=== PATIENT | female | born 1955 | race Caucasian/White ===

== ENCOUNTER → 2018-01-27 10:58 | Outpatient (CLI) | payer OTHER, SELFPAY ==
--- NOTE | 2018-01-27 11:05 | RAD_ITS ---
STUDY: X-RAY CHEST REASON FOR EXAM: Female, 62 years old. Lymphadenopathy TECHNIQUE: PA and lateral views of the chest. COMPARISON: None. FINDINGS: The lungs are adequately inflated and clear. Mildly elevated left hemidiaphragm with blunting of the left costophrenic angle. There is borderline cardiomegaly. Normal mediastinum and alex. Normal visualized pulmonary arteries. Normal visualized aortic arch and descending thoracic aorta. Normal visualized thoracic spine. Normal visualized ribs, clavicles, and shoulders. There is no demonstrated abnormality of the visualized soft tissue structures of the upper abdomen. RAD/Chest PA and Lateral IMPRESSION: Elevated left hemidiaphragm with blunting of the left costophrenic angle. No evidence of acute airspace disease. No evidence of bulky lymphadenopathy. Electronically Signed: Misbah Cordova DO at 10:05 EDT Tel , Service support ,
[2018-01-27 11:17] LABS: Mucous, Urine 0 SEEN /hpf (<or=2+); Red Blood Cells-Urine 0 SEEN /hpf (0-5)
[2018-01-27 12:12] LABS: Color, Urine Yellow (Yellow); Glucose, Dipstick Normal (Normal); Ketone-Dipstick Negative (Negative); Leukocyte Esterase-Dipstick 25 /ul (Negative); Nitrite-Dipstick Negative (Negative); Occult Blood-Urine Negative /ul (Negative); Protein-Dipstick 30 mg/dl (Negative); Specific Gravity, Urine 1.015 (1.002-1.030); Urine Bilirubin Dipstick Negative (Negative); Urine Clarity Sl. Cloudy (Clear); Urine Urobilinogen Normal (Normal)
[2018-01-27 12:23] LABS: Hyaline Cast 0-5 SEEN /lpf (0-5); Squamous Epithelial Cells - UA 0-5 SEEN /hpf (5-10); White Blood Cells 0-5 SEEN /hpf (0-5)
[2018-01-27 12:24] LABS: Absolute Lymphocyte Count 1.92 X10^3/ul (0.83-4.51); Absolute Neutrophil Count 5.1 X10^3/uL (2.0-7.7); Bacteria 1+ /hpf (None Seen); Basophil# 0.04 X10^3/uL; Basophil% 0.5 % (0-1); Eosinophil# 0.05 X10^3/uL; Eosinophils% 0.6 % (0-5); Hematocrit 43.6 % (37-47); Hemoglobin 14.6 g/dl (12.0-15.0); Lymphocyte # 1.92 X10^3/ul (4.0); Lymphocyte % 22.9 % (19-41); Mean Corp Hgb Conc 33.5 g/gl (32-36); Mean Corpuscular Hgb 30.2 pg (27.0-32.0); Mean Corpuscular Volume 90.1 fL (81-99); Mean Platelet Vol. 13.5 fl (6.2-12.0); Monocyte# 1.22 X10^3/uL; Monocyte% 14.5 % (0-10); Neutrophil # 5.14 X10^3/uL (2.7-7.7); Neutrophil % 61.3 % (47-70); Platelet Count 180 K/mm3 (150-450); RBC Distribution Width CV 15.9 % (11.6-14.6); RBC Distribution Width SD 51.8 fl (35.1-43.9); Red Blood Count 4.84 M/mm3 (4.2-5.4); White Blood Count 8.4 K/mm3 (4.4-11.0)
[2018-01-27 12:25] LABS: POSITIVE COUNT NO; POSITIVE DIFFERENTIAL NO; POSITIVE MORPHOLOGY NO
[2018-01-27 12:46] LABS: AST(SGOT) 41 U/L (15-37); Alanine Aminotransfer ALT/SGPT 33 U/L (13-56); Albumin, Serum 4.1 g/dL (3.2-5.0); Alkaline Phosphatase 93 U/L (45-117); Anion Gap 10 (5-15); BUN 13 mg/dL (7-18); BUN/Creat Ratio 16.8 RATIO (10-20); Chloride 103 mmol/L (98-107); Creatinine, Serum 0.77 mg/dL (0.55-1.02); EST Glomerular Filtration Rate 80 mL/min (>60); Est Glom Filt Rate - Afr Amer 96 mL/min (>60); Glucose 83 mg/dL (74-106); Potassium 4.4 mmol/L (3.5-5.1); Protein, Total 8.1 g/dL (6.4-8.2); Sodium Level 136 mmol/L (136-145)
== END ==
PROVIDERS: Family Provider Family Medicine; PCP Family Medicine; Referring Provider Family Medicine; Visit Provider Family Medicine
DX: R59.1 Generalized enlarged lymph nodes (principal); Z72.0 Tobacco use
CPT/HCPCS: 36415; 71046; 80053; 81001; 85025

== ENCOUNTER → 2018-01-31 07:35 | Outpatient (CLI) | payer OTHER, SELFPAY ==
--- NOTE | 2018-01-31 07:40 | US_ITS ---
STUDY: SUPERFICIAL ULTRASOUND - LYMPHADENOPATHY. Bilateral groin. REASON FOR EXAM: Female, 62 years old. Lymphadenopathy. TECHNIQUE: A superficial ultrasound was performed with real-time and static deshpande-scale imaging. # of Images: 66 COMPARISON: None. FINDINGS: Right groin: Multiple enlarged lymph nodes are seen, largest 5 lymph nodes measure: 6.0 x 2.8 x 2.2 cm, 4.1 x 2.4 x 2.1 cm, 3.0 x 2.2 x 1.4 cm, 2.7 x 2.3 x 2.1 cm and 2.4 x 2.1 x 1.5 cm in size. Left groin: Multiple enlarged lymph nodes are seen, largest 5 lymph nodes measure: 5.7 x 2.5 x 2.2 cm, 4.4 x 2.9 x 2.0 cm, 3.1 x 3.0 x 2.5 cm and 1.9 x 1.8 x 1.4 cm in size. US/Abdomen Limited IMPRESSION: Bilateral inguinal lymphadenopathy. Electronically Signed: Henry Hwang MD at 10:14 EDT Tel , Service support ,
--- NOTE | 2018-01-31 07:40 | US_ITS ---
STUDY: SUPERFICIAL ULTRASOUND - NECK REGION REASON FOR EXAM: Female, 62 years old. Bulky lymphadenopathy TECHNIQUE: A superficial ultrasound was performed with real-time and static deshpande-scale imaging. # of Images: 88 COMPARISON: None. FINDINGS: Imaging of the bilateral neck demonstrates numerous large and abnormal-appearing lymph nodes. Largest lymph node on the right measuring 2.0 x 2.1 x 1.4 cm with thick hypoechoic cortex and thin central hilum. On the left, largest lymph node measuring 2.6 x 1.7 x 1.2 cm. US/Head/Neck Soft Tissue IMPRESSION: Markedly abnormal and bulky neck lymphadenopathy suggestive of lymphoma or metastatic disease. Tissue sampling is recommended Electronically Signed: Misbah Cordova DO at 13:18 EDT Tel , Service support ,
== END ==
PROVIDERS: Family Provider Family Medicine; PCP Family Medicine; Referring Provider Family Medicine; Visit Provider Family Medicine
DX: R59.1 Generalized enlarged lymph nodes (principal)
CPT/HCPCS: 76536; 76705

== ENCOUNTER → 2018-02-13 08:30 | Outpatient (CLI) | payer OTHER, SELFPAY ==
--- NOTE | 2018-02-13 | MISC_PTH ---
PATIENT: GULSHAN HANSON LOC: [facility] U#:[id number] AGE/SX: 69/F ROOM: RE02/13/[address]: Dr. Mukesh Martin MD : 1955 BED: DIS: SPEC #: [id number] RECD: 02/13/18 10:55 STATUS: SUMEET ENRIQUE #: [id number] OFELIA: 02/13/18 00:[address]: Mukesh Martin DEPT: SURGICAL PATHOLOGY RECD BY: Rodney Veliz ENTERED: 02/13/18 10:57 SP TYPE: MISC XENIA DR: Dr. Michael Tanner MD Tissues: Inguinal region, NOS Procedures: Surgery Specimen Level IV HEADER OPERATION: Left groin mammotome biopsy PRE-OP DIAGNOSIS: Left groin enlarged lymph node TISSUE SUBMITTED: Left groin tissue MICROSCOPIC DIAGNOSIS Left groin lymph node, core biopsy: Consistent with follicular center lymphoma, grade 3/3. AM:reno 02/14/18 COMMENT Immunohistochemistry ([id number]) supports the above diagnosis. The lymphoma is positive for CD10, CD20, CD45, CD79a, Bcl2 and Bcl6. Clinical correlation is suggested. Case has been reviewed in consultation with Dr. Caceres who concurs with the above diagnosis. IDC:SJ MICROSCOPIC DESCRIPTION Slides are reviewed. GROSS DESCRIPTION Received in fixative is one container labeled with the patient's name and designated left groin. The specimen consists of multiple irregular fragments of yellow-benites soft tissue that in aggregate measure 2.2 x 2 x 0.2 cm. The specimen is totally submitted in one cassette. / AM:reno 02/13/18 TC:0 CPT: 18560
--- NOTE | 2018-02-13 | IMM_PTH ---
PATIENT: GULSHAN HANSON LOC: [facility] U#:[id number] AGE/SX: 69/F ROOM: RE02/13/[address]: Dr. Mukesh Martin MD : 1955 BED: DIS: SPEC #: [id number] RECD: 02/14/18 11:07 STATUS: SUMEET REQ #: [id number] OFELIA: 02/13/18 00:[address]: Mukesh Martin DEPT: IMMUNOHISTOCHEMISTRY RECD BY: Loree Salgado ENTERED: 02/14/18 11:10 SP TYPE: IMMUNO OTHR DR: Dr. Michael Tanner MD Tissues: Inguinal region, NOS Procedures: BCL-2 (add) BCL-6 (add) CD10 (add) CD138 (add) CD15 (add) CD20 (add) CD23 (add) CD3 (add) CD30 (add) CD43 (add) CD5 (add) CD79A (add) CYCLIN (add) KAPPA (add) KI-67 (add) LAMBDA (add) P53 (add) Vimentin (add) MUM1 (add) Pankeratin (add) P40 (add) S-100 (add) CD45 (initial) PHYSICIAN & INSTITUTION [place] [id number] SPECIMEN INFORMATION: Tissue Source: Left groin tissue Clinical Info: Left groin enlarged lymph node Specimen Number: [id number] CPT code: 92690, 83301 x22 METHODOLOGY: Deparaffinized sections of prefer/formalin-fixed tissue or PAP/DQ stained slides are incubated with monoclonal/polyclonal antibodies/oligonucleotide probes. Localization is made via biotin free immunoperoxidase method. Appropriate controls are performed and reacted as expected. Results on target cell population are indicated in the following table: RESULTS: ANTIBODY / CLONE RESULT CD45 (RP2/18) positive AE1-3 (AE1/AE3/PCK26) negative S-100 (4C4.9) negative Vimentin (V9) positive P40 (BC28) negative P53 (DO-7) positive, rare Ki-67 (30-9) positive, low to moderate CD3 (PS1) negative CD5 (SP10) negative CD10 (56C6) positive CD15 (MMA) negative CD20 (L26) positive CD23 (1B12) negative CD30 (Constantino-H2) negative CD43 (L60) negative CD79a (11E3) positive CD138 (B-A38) negative BCL-2 (bcl-2/100/D5) positive BCL-6 (HD894U/A8) positive Cyclin D1/BCL-1 (SP4) negative [place] (polyclonal) negative Lambda (polyclonal) negative MUM1 (MRQ-43) equivocal These tests were developed and their performance characteristics determined by [facility]. They may not have been cleared or approved by the U.S. Food and Drug Administration. The FDA has determined that such clearance or approval is not necessary. INTERPRETATION: Left groin tissue, core biopsy: Consistent with follicular center lymphoma, grade III/III. AM:reno 02/19/18 Case has been reviewed in consultation with Dr. Caceres who concurs with the above diagnosis. IDC:SJ
== END ==
PROVIDERS: Family Provider Family Medicine; PCP Family Medicine; Referring Provider Surgery; Visit Provider Surgery
DX: R59.0 Localized enlarged lymph nodes (principal)
CPT/HCPCS: 88305; 88341; 88342

== ENCOUNTER → 2018-02-14 12:47 | Outpatient (CLI) | payer OTHER, SELFPAY ==
--- NOTE | 2018-02-14 12:49 | CT_ITS ---
STUDY: CT CHEST WITH CONTRAST REASON FOR EXAM: Female, 62 years old. Lymphadenopathy. RADIATION DOSAGE (If Supplied By Facility): CTDIvol = ( 12.95 ) mGy, DLP = ( 1143.26 ) mGycm TECHNIQUE: Transaxial imaging was performed following intravenous administration of 100 ml of Isovue 300 contrast material. Multiplanar coronal and sagittal images were reformatted. Individualized dose optimization techniques were used for this CT. COMPARISON: None. FINDINGS: There is evidence of a bilateral supraclavicular lymphadenopathy worse on the left side. The largest measures 4.3 cm x 2.9 cm. This compresses the left lobe of the thyroid. There is also evidence of bilateral axillary lymphadenopathy worse on the left side. There is skin thickening of the left breast. There is a 1.7 cm x 1.2 cm nodule in the deep posterior lateral aspect of the left breast. Large left pleural effusion with mild loss in the right hemithorax. Small right pleural effusion. Normal heart and pericardium. Multiple mediastinal lymph nodes involving the anterior and middle mediastinum. There is evidence of a subcarinal lymphadenopathy as well as bilateral hilar lymphadenopathy. Normal enhanced pulmonary arteries. Normal aorta arch and descending thoracic aorta. There are multi-level degenerative changes of the thoracic spine. Increased kyphosis. Retroperitoneal lymphadenopathy. Periportal adenopathy. CT/Chest WITH Contrast IMPRESSION: Supraclavicular and bilateral axillary lymph nodes worse on the left side. Diffuse mediastinal and hilar lymphadenopathy with the bilateral pleural effusions left greater than right with atelectasis at the left lung base. Electronically Signed: Denny Juarez MD at 14:19 EDT Tel [phone], Service support ,
--- NOTE | 2018-02-14 12:49 | CT_ITS ---
STUDY: CT ABDOMEN AND PELVIS WITH CONTRAST REASON FOR EXAM: Female, 62 years old. Lymphadenopathy. RADIATION DOSAGE (If Supplied By Facility): CTDIvol = ( 12.95 ) mGy, DLP = ( 1143.26 ) mGycm TECHNIQUE: Transaxial images were obtained from the dome of the diaphragm to the symphysis pubis with oral contrast. 100 ml of Isovue 300 contrast was administered. Sagittal and coronal images were reconstructed. Individualized dose optimization techniques were used for this CT. COMPARISON: None. FINDINGS: There is a 1.7 cm x 1.2 cm enhancing nodular density in the deep inferior lateral aspect of the left breast. There is evidence of diffuse skin thickening of the visualized portion of the left breast. Bilateral pleural effusions moderate on the left small on the right with underlying infiltration and/or atelectasis more prominent on the left side. Atelectasis along the anterior medial aspect of the lingular segment of the left upper lobe. The visualized portions of the heart are within normal limits. Normal liver. Normal gallbladder and extrahepatic biliary system. Mild splenomegaly. There is a 1 cm x 2.4 cm linear hypodensity along the posterior lateral aspect of the midportion of the spleen. This may represent an old laceration. Clinical correlation is recommended. Normal pancreas. Normal bilateral adrenal glands. Normal right kidney. Normal left kidney. Normal visualized stomach. Normal small intestine. Normal colon. The appendix is visualized and appears normal. There is diffuse atherosclerotic calcification of the abdominal aorta, without a demonstrated aneurysm. Normal inferior vena cava. There is retroperitoneal lymphadenopathy with enlarged nodes greater than 10-15mm in the short axis. Multiple rounded soft tissue densities are seen in the pelvis sidewalls in keeping with enlarged adenopathy as well as iliac chain adenopathy. There is also evidence of enlarged bilateral inguinal lymph nodes worse on the left side. Is also evidence of lymphadenopathy within the root of the mesentery. Normal urinary bladder. Normal abdominal wall. Mild dextroscoliosis. CT/Abdomen/Pelvis WITH Contrast IMPRESSION: Diffuse retroperitoneal lymphadenopathy as well as pelvic lymphadenopathy. Lymph nodes are seen in both inguinal regions more prominent on the left side. Bilateral pleural effusions left greater than right with underlying atelectasis and/or infiltration. Left breast skin thickening with the 1.7 cm x 1.2 cm nodular density in the deep inferior lateral aspect of the left breast. Electronically Signed: Denny Juarez MD at 14:15 EDT Tel [phone], Service support ,
== END ==
PROVIDERS: Family Provider Family Medicine; PCP Family Medicine; Referring Provider Surgery; Visit Provider Surgery
DX: R59.1 Generalized enlarged lymph nodes (principal)
CPT/HCPCS: 71260; 74177; Q9967

== ENCOUNTER → 2018-02-18 09:09 | Outpatient (CLI) | payer OTHER, SELFPAY ==
[2018-02-18 10:56] LABS: Vitamin D,25 Hydroxy 27.5 ng/mL (29.95-100.01)
[2018-02-18 11:02] LABS: ALB/GLOB Ratio 1.1 RATIO (0.9-2.4); AST(SGOT) 35 U/L (15-37); Alanine Aminotransfer ALT/SGPT 26 U/L (13-56); Albumin, Serum 3.7 g/dL (3.2-5.0); Alkaline Phosphatase 82 U/L (45-117); Anion Gap 10 (5-15); BUN 11 mg/dL (7-18); BUN/Creat Ratio 16.6 RATIO (10-20); Calcium,Total 10.5 mg/dL (8.5-10.1); Chloride 103 mmol/L (98-107); Creatinine, Serum 0.66 mg/dL (0.55-1.02); EST Glomerular Filtration Rate 95 mL/min (>60); Est Glom Filt Rate - Afr Amer 115 mL/min (>60); Globulin 3.5 g/dL (2.2-4.2); Glucose 78 mg/dL (74-106); Phosphorus 4.1 mg/dL (2.5-4.9); Potassium 4.1 mmol/L (3.5-5.1); Protein, Total 7.2 g/dL (6.4-8.2); Sodium Level 137 mmol/L (136-145); Thyroid Stim Hormone (TSH) 2.99 uIU/mL (0.358-3.74)
[2018-02-18 11:03] LABS: PTHIN 44.4 pg/mL (18.4-80.1)
[2018-02-20 12:09] LABS: HEPATITIS B SURFACE AG Negative (Negative); Hep B Surface Antibodies Non Reactive (.); Hep C Antibodies <0.1 s/co ratio (0.0-0.9)
== END ==
PROVIDERS: Family Provider Family Medicine; PCP Family Medicine; Visit Provider Family Medicine
DX: E83.52 Hypercalcemia (principal); R94.5 Abnormal results of liver function studies
CPT/HCPCS: 36415; 80053; 82306; 82330; 83970; 84100; 84443; 86706; 86803; 87340

== ENCOUNTER → 2018-03-03 13:48 | Outpatient (CLI) | payer OTHER, SELFPAY ==
[2018-02-26 14:19] VITALS: BMI 33.0
--- NOTE | 2018-03-03 13:50 | BI_ITS ---
MAMMOGRAPHY - BILATERAL DIAGNOSTIC REASON FOR EXAM: Female, 62 years old. Left lateral breast swelling and thickening. Mass seen on a recent CT scan of the thorax. PERTINENT HISTORY: Mother with breast cancer. TECHNIQUE: Digital bilateral breast gal (3D mammographic acquisition) in the CC and MLO projections. 2-D mediolateral oblique (MLO) and craniocaudad (CC) views of both breasts were obtained. CAD: Full Field Digital Mammography with Computer Added Detection was performed. COMPARISON: Comparison is made with prior either examination is December 21, 2013. FINDINGS: Breast Composition: The breasts are heterogeneously dense, which may obscure small masses. There is diffuse increased markings in the left breast with diffuse skin thickening. There now is evidence of at least 3 large lymph nodes in the left axilla. Smaller lymph nodes are seen in the right axillary region. 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 No other significant abnormalities are identified. BI/DIAG MAMM W/CAD, BILAT IMPRESSION: Diffuse skin thickening of the left breast with increased markings within the left breast suggestive of a inflammatory breast carcinoma. Enlarged bilateral axillary lymph nodes worse on the left side. A biopsy recommended. ASSESSMENT CATEGORY: BIRADS Category 5: Highly Suggestive of Malignancy - Appropriate Action Should Be Taken. A letter regarding these results will be sent to the patient by the facility within 30 days. Approximately 10% of breast cancers are not detected by mammography. A normal mammogram should not delay biopsy of a clinically suspicious abnormality. Electronically Signed: Denny Juarez MD at 10:44 EST Tel [phone], Service support ,
== END ==
PROVIDERS: Family Provider Family Medicine; PCP Family Medicine; Referring Provider Internal Medicine Hematology & Oncology; Visit Provider Internal Medicine Hematology & Oncology
DX: R92.8 Other abnormal and inconclusive findings on diagnostic imaging of breast (principal); R93.89 Abnormal findings on diagnostic imaging of other specified body structures; C82.20 Follicular lymphoma grade III, unspecified, unspecified site
CPT/HCPCS: 77062; 77066; G0279

== ENCOUNTER → 2018-03-04 15:20 | Outpatient (CLI) | payer OTHER, SELFPAY ==
[2018-02-26 14:19] VITALS: BMI 33.0
--- NOTE | 2018-03-04 15:23 | VDLE_ITS ---
Reason For Study: swelling RIGHT LEFT GSV is normal. GSV is normal. CFV is compressible, spontaneous, phasic, CFV is compressible, spontaneous, phasic, competent and demonstrates normal competent, and demonstrates normal augmentation. augmentation. FV is compressible, spontaneous, phasic, FV is compressible, spontaneous, phasic, competent and demonstrates normal competent and demonstrates normal augmentation. augmentation. POP V is compressible, spontaneous, phasic, POP V is compressible, spontaneous, phasic, competent and demonstrates normal competent and demonstrates normal augmentation. augmentation. T/P Trunk is compressible. T/P Trunk is compressible. PTV is compressible. PTV is compressible. RT PerV is compressible. LT PerV is compressible. Multiple heterogeneous areas in the groin Multiple heterogeneous areas in the groin with arterial flow noted. with arterial flow noted. Procedure Exam performed in department. The exam was diagnostic. A preliminary report was called and/or faxed to Dr. Tanner. <> Interpretation Summary Deep veins of the lower extremities are bilaterally patent and compressible segmentally. There is no evidence of deep vein thrombosis on either side. Valvular competence appears intact within the proximal deep venous systems bilaterally. The greater saphenous veins appear bilaterally patent and compressible segmentally. Multiple heterogeneous areas/structures with arterial flow are noted in groin bilaterally. These may represent lymph nodes/lymphadenopathy. Clinical correlation is advised. Ordering Physician: Michael Tanner Performed By: Venancio Seymour RVT
== END ==
PROVIDERS: Family Provider Family Medicine; PCP Family Medicine; Referring Provider Family Medicine; Visit Provider Family Medicine
DX: M79.89 Other specified soft tissue disorders (principal)
CPT/HCPCS: 93970

== ENCOUNTER → 2018-03-07 13:48 | Outpatient (CLI) | payer OTHER, SELFPAY ==
[2018-02-26 14:19] VITALS: BMI 33.0
--- NOTE | 2018-03-07 13:50 | ECHODONC_ITS ---
Reason For Study: PRE-CHEMO Procedure This was a 2D Doppler, Color Flow transthoracic echocardiogram. Myocardial strain analysis was performed in this exam to aid in the assessment of cardiac function. Exam performed in department. Left Ventricle Normal LV size. Left ventricular systolic function is normal. The estimated ejection fraction is 60 %. No evidence for diastolic dysfunction. No regional wall motion abnormalities noted. Right Ventricle Normal RV size. Normal systolic function. Atria Normal left atrium. Normal right atrium. Mitral Valve Normal mitral valve. Mild (1+) eccentric mitral valve insufficiency. Tricuspid Valve Normal tricuspid valve. Mild (1+) tricuspid valve insufficiency. Pulmonary artery systolic pressure is 33 mmHg. Aortic Valve Normal aortic valve. Trisinus/trileaflet aortic valve. Pulmonic Valve Normal pulmonic valve. Great Vessels Normal aortic root. The pulmonary artery is normal size. Normal inferior vena cava. Pericardium/Pleural Small pericardial effusion. Large left pleural effusion. MMode/2D Measurements & Calculations LVIDd: 4.4 cm IVSd: 0.89 cm Ao root diam: 3.4 cm LVIDs: 3.0 cm LVPWd: 0.91 cm RVDd: 3.0 cm FS: 31.4 % LAV(MOD-bp): 55.9 ml LA A4 area: 17.2 cm2 LA dimension(2D): 3.6 cm LAV(MOD-bp) Indexed: 30.2 ml/m2 LAV(MOD-sp2): 58.5 ml LAV(MOD-sp4): 47.8 ml RA A4 area: 12.7 cm2 Time Measurements MV dec time: 0.26 sec Doppler Measurements & Calculations MV E max delfin: 79.7 cm/sec Lat Peak E' Delfin: 10.1 cm/sec Med Peak E' Delfin: 7.4 cm/sec MV A max delfin: 72.9 cm/sec E/E' lat: 7.9 E/E' med: 10.7 MV E/A: 1.1 Ao V2 max: 122.3 cm/sec LV V1 max: 121.0 cm/sec TR max delfin: 267.9 cm/sec Ao max P.0 mmHg LV V1 max P.9 mmHg TR max P.1 mmHg Interpretation Summary Normal LV size. Left ventricular systolic function is normal. The estimated ejection fraction is 60 %. No evidence for diastolic dysfunction. Mild (1+) tricuspid valve insufficiency. Pulmonary artery systolic pressure is 33 mmHg. The global longitudinal strain is normal. The global longitudinal strain = -23.3 % (normal). Ordering Physician: Sam Aiken Referring Physician: CATINA TEJADA Performed By: Pauline Santamaria, [place], RVT
== END ==
PROVIDERS: Family Provider Family Medicine; PCP Family Medicine; Referring Provider Internal Medicine Hematology & Oncology; Visit Provider Internal Medicine Hematology & Oncology
DX: Z01.818 Encounter for other preprocedural examination (principal); C82.20 Follicular lymphoma grade III, unspecified, unspecified site
CPT/HCPCS: 0399T; 93306

== ENCOUNTER 2018-03-14 08:49 | Day surgery (SDC) | payer OTHER, SELFPAY ==
[2018-02-26 14:19] VITALS: BMI 33.0
[2018-03-13 14:55] VITALS: BMI 32.7
[2018-03-14] VITALS (8 sets, daily range): BP systolic 118–135; BP diastolic 53–93; PULSE 65–80; RESP 18–20; TEMP 36.6–36.8; O2SAT 89–96; BMI 31.7
--- NOTE | 2018-03-14 09:14 | EKG12_ITS ---
Test Reason : PREOP Blood Pressure : / mmHG Vent. Rate : 061 BPM Atrial Rate : 061 BPM P-R Int : 158 ms QRS Dur : 086 ms QT Int : 378 ms P-R-T Axes : 037 019 030 degrees QTc Int : 380 ms Normal sinus rhythm Low voltage QRS Borderline ECG No previous ECGs available Confirmed by KAMALA MATA, HOLDEN ([id number]), manuscript editor KAREN MARCELINO ([id number]) on 03/14/2018 2:13:24 PM Referred By: Mukesh Martin Confirmed By:HOLDEN WRAY MD
[2018-03-14] MEDS: Cefazolin 2 GM in 0.9% Normal Saline 100 ML IV (11:08)
--- NOTE | 2018-03-14 11:13 | DCINST_ITS ---
Discharge Diet: Light diet - advance as tolerated - if you have questions about your diet instructions, please talk to you doctor. Discharge Activity: May Not Drive - for 1 week or while taking narcotic pain medicine. May shower in (days): 1 Lifting Restrictions: 10 pounds Call your doctor if your incision/area has: Continuous Slow Oozing, Sudden Increased Bleeding, Increased Pain/ Swelling, Increased Redness, Foul Smelling Discharge Call your doctor if you observe: Fever of 101 or Higher Suture Line Care: Avoid Pulling/Pushing, Avoid Pinching/Bending Additional Dressing/Incision Instructions:: Change or remove dressing in 4 days. Leave steri-strips in place for 1 week. Allergies/Adverse Reactions: Allergies No Known Allergies Allergy (Verified 03/14/18 09:32) Medications to take at Discharge aspirin 81 mg tablet,delayed release 81 mg PO DAILY 02/10/18 omega-3 fatty acids 1,000 mg capsule 1,000 mg PO DAILY 02/10/18 Multivitamin [Multiple Vitamins] 1 tab PO DAILY 02/25/18 Hydrocodone Bitart/Apap 5-325 [Kittery 5MG-325MG] 1 tablet PO Q6H PRN PRN 2 Days #5 tablet 03/14/18 The following prescriptions were given: Hydrocodone Bitart/Apap 5-325 [Kittery 5MG-325MG] 1 tablet PO Q6H PRN PRN 2 Days #5 tablet PRN Reason: Pain Primary Care Physician: Michael Tanner MD [Primary Care Provider] - Test Results: Test results from this visit will be discussed in further detail at your follow- up appointment, if applicable. Please Follow Up With: Mukesh Martin MD - [phone] When: Office appointment can be scheduled if needed
[2018-03-14] MEDS: Bupivacaine Mpf 0.5% 30 ML VIAL (11:40)
--- NOTE | 2018-03-14 11:51 | PCM.OPRPT ---
Problem List (1) Follicular lymphoma grade III Status: Acute Qualifiers: Lymphoma site: axillary Qualified Code(s): C82.24 - Follicular lymphoma grade III, unspecified, lymph nodes of axilla and upper limb Report of Operation Date of Procedure: 03/14/18 Pre-Operative Diagnosis: Follicular lymphoma Post-Operative Diagnosis: Same Surgery/Procedure Performed:: Right internal jugular 6 Mongolian power port placement Description of Surgical Findings:: Timeout and informed consent was obtained. 62-year-old female was taken out from placement table she underwent monitored anesthesia care. Ancef 2 g given intravenously preoperatively. The right neck and chest were sterilely prepped and draped. Under ultrasound guidance 1% lidocaine mixed 50-50 with 0.5% Marcaine was used as a local anesthetic. Total of 15 cc was used. Local was micropuncture needle was inserted under ultrasound guidance the right internal jugular vein. So much wire advancement. Fluoroscopy demonstrated good positioning. Local was then instilled down upon the chest wall. A transverse incision was made second intercostal space midclavicular line and using electrocautery sub-changes pocket was created. The tubing was tunneled from the neck to the chest site. Micropuncture sheath was placed over the micropuncture wire and an 035 J-wire was inserted. Fluoroscopy demonstrated good positioning. The sheath dilator was placed over the wire dilator wire removed the catheter advanced through the sheath the sheath was split the catheter was placed at the SVC atrial junction it was amputated to length connected the port secured with port attachment device. The port was placed within the pocket secured there with interrupted 2-0 silk. The port site was closed with interrupted 3-0 Vicryl subdermal sutures. The neck was closed with interrupted 5-0 Vicryl subdermal stitches. The port was accessed. It aspirated easily it was flushed with saline and heparinized saline. Steri-Strips Telfa and OpSite dressings applied. Sponge and instrument and needle counts were reported the surgeon to be correct. Blood loss was minimal. Specimens none. Drains none. Blood loss minimal. She was taken to the recovery area in satisfactory condition. Stat portable chest x-ray is pending. Mukesh Martin M.D., F.A.C.S. Type of Anesthesia:: Local MAC Anesthesiologist: Doc Toure
--- NOTE | 2018-03-14 12:06 | RAD_ITS ---
STUDY: X-RAY CHEST REASON FOR EXAM: Female, 62 years old. Port placement. TECHNIQUE: Single AP portable view of the chest. COMPARISON: Comparison is made with prior study dated January 27, 2018. FINDINGS: A right-sided ward catheter has been placed. The tip is at the junction of the superior vena cava and right atrium. Since prior study, there has been a progression of the left pleural effusion with underlying infiltration and/or atelectasis. Normal size heart. Normal mediastinum and alex. Normal visualized pulmonary arteries. There is atherosclerotic calcification of the aortic arch with tortuosity. Mild levoscoliosis. Normal visualized ribs, clavicles, and shoulders. There is no demonstrated abnormality of the visualized soft tissue structures of the upper abdomen. RAD/CXR for Line Placement IMPRESSION: The tip of the right portacatheter is at the junction of the superior vena cava and right atrium. Since prior study, there has been increasing left pleural effusion with underlying infiltration and/or atelectasis. Electronically Signed: Denny Juarez MD at 12:35 EST Tel [phone], Service support ,
--- OUTSIDE RECORDS SUMMARY | 2018-05-09 03:41 | XMS RPT_ITS ---
:1955 Author Organization OHIP Support Name Relationship Address Phone VALENTIN GLORIA Unavailable [address] + [place] [address] UE Unavailable Unavailable Unavailable VALENTIN, GLORIA Unavailable [address] + [place] [address] UE Unavailable Unavailable Unavailable VALENTIN, GLORIA Unavailable [address] + [place] [address] UE Unavailable Unavailable Unavailable VALENTIN, GLORIA Unavailable [address] [place] [address] RD + [place] [address] UE Unavailable Unavailable Unavailable VALENTIN, GLORIA Unavailable [address] + [place] [address] UE Unavailable Unavailable Unavailable VALENTIN, GLORIA Unavailable [address] + [place] [address] UE Unavailable Unavailable Unavailable VALENTIN, GLORIA Unavailable [address] + [place] [address] UE Unavailable Unavailable Unavailable VALENTIN, GLORIA Unavailable [address] + [place] [address] UE Unavailable Unavailable Unavailable AVLENTIN, GLORIA Unavailable [address] + [place] [address] UE Unavailable Unavailable Unavailable VALENTIN, GLORIA Unavailable [address] + [place] [address] UE Unavailable Unavailable Unavailable VALENTIN, GLORIA Unavailable [address] + [place] [address] UE Unavailable Unavailable Unavailable VALENTIN, GLORIA Unavailable [address] + [place] [address] UE Unavailable Unavailable Unavailable VALENTIN, GLORIA Unavailable [address] + [place] [address] UE Unavailable Unavailable Unavailable VALENTIN, GLORIA Unavailable [address] + [place] [address] UE Unavailable Unavailable Unavailable VALENTIN, GLORIA Unavailable [address] + [place] [address] UE Unavailable Unavailable Unavailable VALENTIN, GLORIA Unavailable [address] + [place] [address] UE Unavailable Unavailable Unavailable VALENTIN, GLORIA Unavailable [address] + [place] [address] UE Unavailable Unavailable Unavailable VALENTIN, GLORIA Unavailable [address] + [place] [address] UE Unavailable Unavailable Unavailable VALENTIN, GLORIA Unavailable [address] + [place] [address] UE Unavailable Unavailable Unavailable VALENTIN, GLORIA Unavailable [address] + [place] [address] UE Unavailable Unavailable Unavailable VALENTIN, GLORIA Unavailable [address] + [place] [address] UE Unavailable Unavailable Unavailable VALENTIN, GLORIA Unavailable [address] + [place] [address] UE Unavailable Unavailable Unavailable VALENTIN, GLORIA Unavailable [address] + [place] [address] UE Unavailable Unavailable Unavailable VALENTIN, GLORIA Unavailable [address] + [place] [address] UE Unavailable Unavailable Unavailable VALENTIN, GLORIA Unavailable [address] + [place] [address] UE Unavailable Unavailable Unavailable VALENTIN, GLORIA Unavailable [address] + [place] [address] UE Unavailable Unavailable Unavailable VALENTIN, GLORIA Unavailable [address] + [place] [address] UE Unavailable Unavailable Unavailable VALENTIN, GLORIA Unavailable [address] + [place] [address] UE Unavailable Unavailable Unavailable VALENTIN, GLORIA Unavailable [address] + [place] [address] UE Unavailable Unavailable Unavailable VALENTIN, GLORIA Unavailable [address] + [place] [address] UE Unavailable Unavailable Unavailable VALENTIN, GLORIA Unavailable [address] + [place] [address] UE Unavailable Unavailable Unavailable Care Team Providers Name Role Phone Catina Tejada Attending Unavailable Catina Tejada Referring Unavailable Catina Tejada Primary Care Unavailable Catina Tejada Attending Unavailable Catina Tejada Primary Care Unavailable Sam Aiken Attending Unavailable Catina Tejada Primary Care Unavailable Isckarus, [place] Consulting Unavailable Catina Tejada Referring Unavailable Sam Aiken Attending Unavailable Catina Tejada Primary Care Unavailable Isckarus, Clarisseour Referring Unavailable Sam Aiken Attending Unavailable Nelli, Clarisseour Referring Unavailable Catina Tejada Primary Care Unavailable Catina Tejada Attending Unavailable Catina Tejada Referring Unavailable Catina Tejada Primary Care Unavailable Catina Tejada Primary Care Unavailable Koram, Apolonia Alma Admitting Unavailable Koram, Apolonia Alma Referring Unavailable Alfred Ruiz D.O. Consulting Unavailable Elmer Vuong Attending Unavailable Willie, Matias Consulting Unavailable Isckarus, Mansour Consulting Unavailable Koram, Apolonia Alma Admitting Unavailable Alfred Ruiz D.O. Attending Unavailable Koram, Apolonia Alma Referring Unavailable Catina Tejada Primary Care Unavailable Alfred Ruiz D.O. Consulting Unavailable Willie, [place] Consulting Unavailable Isckarus, Mansour Consulting Unavailable Elmer Vuong Consulting Unavailable Nelli, Clarisseour Attending Unavailable Catina Tejada E Primary Care Unavailable Mukesh Martin Attending Unavailable Mukesh Martin Referring Unavailable SchCatina quiros E Primary Care Unavailable Mukesh Martin Attending Unavailable Mukesh Martin Referring Unavailable SchCatina quiros E Primary Care Unavailable Mukesh Martin Attending Unavailable Catina Tejada Referring Unavailable Mukesh Martin Attending Unavailable Schinner, Actina E Referring Unavailable Schinner, Catina E Attending Unavailable Schinner, Catina E Referring Unavailable Schinner, Catina E Primary Care Unavailable Schinner, Catina E Attending Unavailable Schinner, Catina E Referring Unavailable Schinner, Catina E Primary Care Unavailable Willie, [place] Attending Unavailable Isckarus, Mansour Referring Unavailable Odell, Mer Attending Unavailable Alfred Ruiz D.O. Referring Unavailable Odell, Mer Attending Unavailable Odell, Mer Referring Unavailable Schinner, Catina E Primary Care Unavailable Schinner, Catina E Consulting Unavailable Steven Marcial Consulting Unavailable Belia Rueda Consulting Unavailable Odell, Mer Attending Unavailable Schinner, Catina E Primary Care Unavailable Sunnikarus, Mansour Consulting Unavailable Koram, Apolonia Alma Admitting Unavailable Elmer Vuong Attending Unavailable Koram, Apolonia Alma Referring Unavailable Schinner, Catina E Primary Care Unavailable Alfred Ruiz D.O. Consulting Unavailable Willie, Matias Consulting Unavailable Nelli, Clarisseour Consulting Unavailable Elmer Vuong Consulting Unavailable Koram, Apolonia Alma Admitting Unavailable WillieMatias storey Attending Unavailable Koram, Apolonia Alma Referring Unavailable Schinner, Catina E Primary Care Unavailable Alfred Ruiz D.O. Consulting Unavailable Matias Tapia Consulting Unavailable Elmer Vuong Consulting Unavailable Koram, Apolonia Alma Admitting Unavailable Elmer Vuong Attending Unavailable Koram, Apolonia Alma Referring Unavailable Schinner, Catina E Primary Care Unavailable Alfred Ruiz D.O. Consulting Unavailable Matias Tapia Consulting Unavailable Elmer Vuong Consulting Unavailable Koram, Apolonia Alma Admitting Unavailable Alfred Ruiz D.O. Attending Unavailable Koram, Apolonia Alma Referring Unavailable Schinner, Catina E Primary Care Unavailable Alfred Ruiz D.O. Consulting Unavailable Willie, [place] Consulting Unavailable Elmer Vuong Consulting Unavailable Koram, Apolonia Alma Admitting Unavailable Koram, Apolonia Alma Attending Unavailable Koram, Apolonia Alma Referring Unavailable Schinner, Catina E Primary Care Unavailable Koram, Apolonia Alma Consulting Unavailable Mukesh Martin Attending Unavailable Mukesh Martin Referring Unavailable Schinner, Catina E Primary Care Unavailable Mukesh Martin Consulting Unavailable Sunnikarus, Mansour Attending Unavailable Schinner, Catina E Primary Care Unavailable Isckarus, Mansour Consulting Unavailable Cebul, Mukesh Attending Unavailable Cebul, Mukesh Referring Unavailable Catina Tejada Primary Care Unavailable Josephl, Mukesh Attending Unavailable Catina Tejada Referring Unavailable Isckarus, Mansour Attending Unavailable Catina Tejada Primary Care Unavailable Isckarus, Mansour Consulting Unavailable Koram, Apolonia Alma Admitting Unavailable Koram, Apolonia Alma Referring Unavailable Catina Tejada Primary Care Unavailable Alfred Ruiz D.O. Consulting Unavailable Elmer Vuong Attending Unavailable Willie, [place] Consulting Unavailable Isckarus, Mansour Consulting Unavailable Elmer Vuong Consulting Unavailable Koram, Apolonia Alma Admitting Unavailable Alfred Ruiz D.O. Attending Unavailable Koram, Apolonia Alma Referring Unavailable Catina Tejada Primary Care Unavailable Alfred Ruiz D.O. Consulting Unavailable Willie, Matias Consulting Unavailable Isckarus, Mansour Consulting Unavailable Elmer Vuong Consulting Unavailable PROBLEMS PROBLEMS DATE TYPE CONDITION / CODE ATTENDING STATUS SOURCE 04/01/2018 Unknown C82.20 - Follicular Isckarus, Active [facility] lymphoma grade III, [place] Community unspecified, Hospital unspecified site / Repository C82.20(ICD-10) 04/01/2018 Unknown M79.89 - Other [facility], [facility] M79.89(ICD-10) Repository 04/01/2018 Unknown R60.0 - Localized Isckarus, Active [facility] edema / [facility] [facility] R60.0(ICD-10) Hospital Repository 03/14/2018 Unknown G89.18 - Other acute CebuMukesh frederick Active [facility] postprocedural pain Community / G89.18(ICD-10) Hospital Repository 03/27/2018 Unknown Z79.899 - Other long Willie, [place] Active [facility] term (current) drug Community therapy / Hospital Z79.899(ICD-10) Repository 02/14/2018 Unknown R59.1 - Generalized [place]ebuMukesh frederick Active [facility] enlarged lymph nodes Community / R59.1(ICD-10) Hospital Repository 02/13/2018 Unknown C85.90 - Non-Hodgkin [place]esh frederick Active [facility] lymphoma, Community unspecified, Hospital unspecified site / Repository C85.90(ICD-10) PROCEDURES PROCEDURES No Procedure Records FoundRESULTS RESULTS VENOUS DUPLEX LOWER Observed: 03/29/2018 Status: F Source: [place] EXTREMITY 1:39 PM [facility] [address] [place] [address] Venous Duplex US, Unilateral 03/26/18 1606 MR#: [id number] Acct: [id number] Name: CORI CORRIGAN Rep #: [id number] : 1955 62 From: Arnol Bundy MD Attending Dr: Mer Bain NP Status: REG CLI Ordering Dr: Mer Bain CENTER MACHINE SET UP OPERATOR-C Date: 03/26/18 Location: [facility] Sex: F C Admitted: Reason For Study: LEG SWELLING Procedure LEFT Exam performed in department. GSV is normal. A preliminary report was called and/or faxed CFV is compressible, spontaneous, phasic, to Harmony Bain. competent, and demonstrates normal augmentation. FV is compressible, spontaneous, phasic, competent and demonstrates normal augmentation. POP V is compressible, spontaneous, phasic, competent and demonstrates normal augmentation. T/P Trunk is compressible. PTV is compressible. LT PerV is compressible. Heterogenous, vascularized structures noted lt groin. Interpretation Summary Deep veins of the left lower extremity are patent and compressible segmentally. There is no evidence of left lower extremity deep vein thrombosis. Valvular competence appears intact within the proximal deep venous system on the left . The left greater saphenous vein appears patent and compressible segmentally. Heterogeneous, vascularized structures are noted in the left groin, which may represent lymph nodes. Clinical correlation is advised. Ordering Physician: Mer Bain Referring Physician: Mer Bain Performed By: Yisel Murdock RVT 03/29/18 1338 Date Arnol Bundy MD CC: Catina Tejada MD; Mer Bain NP Date Dictated: 03/26/18 1606 Date Transcribed: 03/29/188 Service Aide: Signed ONCOLOGY VISIT REPORT Observed: 03/24/2018 Status: F Source: [place] 3:47 PM [facility] REPOSITORY [facility] Medical Oncology [address] [place] [address] OFFICE VISIT Date of Service: 03/24/18 1537 MR#: [id number] Acct: [id number] Name: CORI CORRIGAN Rep #: [id number] : 1955 From: Mer Bain CENTER MACHINE SET UP OPERATOR-C Age/Sex: 62/F Location: [facility] Status: Signed Subjective - Date of Service Date of Service:: 03/24/18 - Chief Complaint Lymphoma on treatment - History of Present Illness Patient is a 62-year-old female who presented with generalized lymphadenopathy and a biopsy revealed follicular lymphoma. February 13, 2018 Left groin lymph node, core biopsy: Consistent with follicular center lymphoma, grade 3/3 ANTIBODY / CLONE RESULT CD45 (RP2/18) positive AE1-3 (AE1/AE3/PCK26) negative S-100 (4C4.9) negative Vimentin (V9) positive P40 (BC28) negative P53 (DO-7) positive, rare Ki-67 (30-9) positive, low to moderate CD3 (PS1) negative CD5 (SP10) negative CD10 (56C6) positive CD15 (MMA) negative CD20 (L26) positive CD23 (1B12) negative CD30 (Constantino-H2) negative CD43 (L60) negative CD79a (11E3) positive CD138 (B-A38) negative BCL-2 (bcl-2/100/D5) positive BCL-6 (EF368M/A8) positive [place]in D1/BCL-1 (SP4) negative [place] (polyclonal) negative Lambda (polyclonal) negative MUM1 (MRQ-43) equivocal February 14, 2018 CT chest: FINDINGS: There is evidence of a bilateral supraclavicular lymphadenopathy worse on the left side. The largest measures 4.3 cm x 2.9 cm. This compresses the left lobe of the thyroid. There is also evidence of bilateral axillary lymphadenopathy worse on the left side. There is skin thickening of the left breast. There is a 1.7 cm x 1.2 cm nodule in the deep posterior lateral aspect of the left breast. Large left pleural effusion with mild loss in the right hemithorax. Small right pleural effusion. Normal heart and pericardium. Multiple mediastinal lymph nodes involving the anterior and middle mediastinum. There is evidence of a subcarinal lymphadenopathy as well as bilateral hilar lymphadenopathy. Normal enhanced pulmonary arteries. Normal aorta arch and descending thoracic aorta. There are multi-level degenerative changes of the thoracic spine. Increased kyphosis. Retroperitoneal lymphadenopathy. Periportal adenopathy. CT/Chest WITH Contrast IMPRESSION: Supraclavicular and bilateral axillary lymph nodes worse on the left side. Diffuse mediastinal and hilar lymphadenopathy with the bilateral pleural effusions left greater than right with atelectasis at the left lung base. February 14, 2018 CT abdomen and pelvis: FINDINGS: There is a 1.7 cm x 1.2 cm enhancing nodular density in the deep inferior lateral aspect of the left breast. There is evidence of diffuse skin thickening of the visualized portion of the left breast. Bilateral pleural effusions moderate on the left small on the right with underlying infiltration and/or atelectasis more prominent on the left side. Atelectasis along the anterior medial aspect of the lingular segment of the left upper lobe. The visualized portions of the heart are within normal limits. Normal liver. Normal gallbladder and extrahepatic biliary system. Mild splenomegaly. There is a 1 cm x 2.4 cm linear hypodensity along the posterior lateral aspect of the midportion of the spleen. This may represent an old laceration. Clinical correlation is recommended. Normal pancreas. Normal bilateral adrenal glands. Normal right kidney. Normal left kidney. Normal visualized stomach. Normal small intestine. Normal colon. The appendix is visualized and appears normal. There is diffuse atherosclerotic calcification of the abdominal aorta, without a demonstrated aneurysm. Normal inferior vena cava. There is retroperitoneal lymphadenopathy with enlarged nodes greater than 10-15mm in the short axis. Multiple rounded soft tissue densities are seen in the pelvis sidewalls in keeping with enlarged adenopathy as well as iliac chain adenopathy. There is also evidence of enlarged bilateral inguinal lymph nodes worse on the left side. Is also evidence of lymphadenopathy within the root of the mesentery. Normal urinary bladder. Normal abdominal wall. Mild dextroscoliosis. CT/Abdomen/Pelvis WITH Contrast IMPRESSION: Diffuse retroperitoneal lymphadenopathy as well as pelvic lymphadenopathy. Lymph nodes are seen in both inguinal regions more prominent on the left side. Bilateral pleural effusions left greater than right with underlying atelectasis and/or infiltration. Left breast skin thickening with the 1.7 cm x 1.2 cm nodular density in the deep inferior lateral aspect of the left breast. PET/CT March 11, 2018: FINDINGS: 1. Multifocal increased FDG concentration is manifest in the bilateral axillary, supraclavicular, anterior and lateral neck lymph node distributions, too many to individually articulate, generating a calculated maximal standard uptake value of 5.6. The Lugano Deauville score is 5. The maximal axial diameter of the largest individual hypermetabolic soft tissue density on review of CT of the neck-thorax dated 03/10/18 is 37.6-mm (transverse) x 22.1-mm (AP). 2. Enhanced glucose metabolism is manifest in the pre-subcarinal mediastinum generating a calculated maximal standard uptake value of 4.0. The Lugano Deauville score is 5. The maximal axial diameter of the largest individual metabolic, morphologic abnormality on review of CT of the thorax dated 03/10/18 is 37.8-mm (transverse) x 46.7-mm (AP). 3. Innumerable foci of facilitated labeled FDG uptake are noted in the upper to lower abdominal retroperitoneum, abdominal mesentery, the bilateral hemipelvis and right-left inguinal lymph node distributions. The calculated maximal standard uptake value is 6.1. The Lugano Deauville score is 5. The largest individual metabolic, morphologic abnormality on review of CT of the abdomen dated 03/10/18 is 25.3-mm (transverse) x 47.9-mm (AP). 4. Uniform enhanced radiopharmaceutical concentration is noted throughout the parenchyma of a normal size spleen generating a corrected calculated maximal standard uptake value of 3.8 (corrected) greater than that defined in the hepatic reference. The Lugano Deauville score is 5. 5. There is homogenous enhanced glucose concentration evidenced in the visualized appendicular and axial skeletal structures with a Lugano-Deauville score of 5. 6. Normal physiologic distribution of the radiopharmaceutical is apparent in the hepatic (2.8) parenchyma, both renal units, bladder and visualized intestinal tract. The visualized portion of the cerebral cortex, cerebellar hemispheres and basal ganglia demonstrates uniform and preserved glucose metabolism. Diffuse radiopharmaceutical concentration is noted in all four quadrants of the abdomen and pelvis. Pertinent CT findings are as follows: CHEST: Bilateral hemithorax pleural effusions are non-glucose avid. There are no parenchymal densities-nodules demonstrated in the right-left hemithorax demonstrating discernible increased glucose metabolism. There is atherosclerotic calcification defined in the thoracic aorta without evidence of dilatation-aneurysm formation. ABDOMEN AND PELVIS: There is atherosclerotic calcification defined in the abdominal aorta without evidence of dilatation-aneurysm formation. Pelvic arterial calcification is observed. Calcification is defined in the left lower hemipelvis. SKELETAL: Degenerative changes are noted in the cervical, thoracic and lumbar spine. PET/PET/CT Tumor Base -Thigh Init IMPRESSION: 1. ABNORMAL EXAMINATION INDICATIVE OF MALIGNANT VIABLE NEOPLASM. 2. Increased glucose concentration noted in the bilateral axillary and supraclavicular, right-left anterior and lateral neck structures fulfills quantitative criteria for viable neoplasm. 3. Neoplastic transformation is noted in the mediastinal structures. (Herlinda ward al, Journal of Clinical Oncology 16:2142, 1998). 4. Facilitated FDG uptake noted in the abdominal retroperitoneum and mesentery, bilateral hemipelvis and inguinal regions fulfills quantitative criteria for viable neoplasm. 5. There is evidence of viable neoplastic transformation involving the splenic parenchyma. (Vanessa ward al., Journal of Nuclear Medicine 44:1072, 2004). 6. Diffuse increased glucose concentration observed in the appendicular, axial skeletal structures likely represents neoplasm. (doyle Andrade, Clinical Nuclear Medicine, 29:161, 2004). Electronic Signature Germán Milner D.O. Treatment: R CHOP March 24, 2018- - Past Medical/Social History Past Medical History Cancer: Lymphoma Social History Social History: No changes Smoking Status Current every day smoker Review of Systems Constitutional:: Reports: Weakness, Fatigue. Denies: Fever, Sweats, Weight loss, Appetite change, Chills Cardiovascular:: Reports: Dyspnea on exertion. Denies: Chest pain, Palpitations, Orthopnea, PND, Shortness of breath Respiratory: Denies: Cough, Hemoptysis, Wheezing Gastrointestinal:: Denies: Abdominal pain, Nausea, Vomiting, Diarrhea, Constipation, Hematochezia Genitourinary: Denies: Dysuria, Hematuria, 15, Flank pain Musculoskeletal:: Denies: Back pain, Myalgia, Arthralgia Skin: Denies: Rash, Skin Changes, Wounds Neurological:: Denies: Headache, Dizziness, Visual changes, Tinnitus, Hearing loss Psychiatric: Denies: Anxiety, Depression, Homicidal Ideations, Suicidal Ideations Vital Signs Height 5 ft 2 in Weight: 173 lb 9.6 oz Weight in Pounds 173.6 lbs Pulse Ox 93 - Physical Exam General: Alert, Oriented x3, No apparent distress HEENT: Atraumatic, Normocephalic Psychiatric:: Appropriate affect, Euthymic Laboratory Data: Laboratory Tests WBC 8.8 (4.4-11.0) K/mm3 RBC 4.35 (4.2-5.4) M/mm3 Hgb 12.9 (12.0-15.0) g/dl Hct 39.5 (37-47) % MCV 90.8 (81-99) fL Diagnostic Data: Diagnostic Data PET, CT Tumor Imaging 03/10/18 09:33 IMPRESSION: 1. ABNORMAL EXAMINATION INDICATIVE OF MALIGNANT VIABLE NEOPLASM. 2. Increased glucose concentration noted in the bilateral axillary and supraclavicular, right-left anterior and lateral neck structures fulfills quantitative criteria for viable neoplasm. 3. Neoplastic transformation is noted in the mediastinal structures. (Herlinda et al, Journal of Clinical Oncology 16:2142, 1998). 4. Facilitated FDG uptake noted in the abdominal retroperitoneum and mesentery, bilateral hemipelvis and inguinal regions fulfills quantitative criteria for viable neoplasm. 5. There is evidence of viable neoplastic transformation involving the splenic parenchyma. (Vanessa et al., Journal of Nuclear Medicine 44:1072, 2004). 6. Diffuse increased glucose concentration observed in the appendicular, axial skeletal structures likely represents neoplasm. (doyle Andrade, Clinical Nuclear Medicine, 29:161, 2004). Electronic Signature Germán Milner D.O. Electronically Signed: Germán Milner DO at 22:33 EST Tel , Service support , Assessment and Plan 62-year-old female with: 1. 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 Her FLIPI score of 4 (age above 60, elevated LDH, stage IV and more than 4 kate areas involved) puts her at the high risk group (2-year overall survival of 87%, 2-year progression free survival of 65%, and median progression free survival 42 months) for those treated with systemic therapy including Rituxan. She has had a rather aggressive course with rapidly enlarging generalized lymphadenopathy over the course of 1-2 months in addition to a moderate size left pleural effusion that may be due to lymphomatous involvement or disruption of lymphatic drainage by lymphoma. 2. Left breast nodule on CT but not on mammography or ultrasound and mammographic abnormalities noted more likely related to impairment of lymph drainage from the breast due to lymphomatous involvement of axillary nodes (discussed with Dr. Martin). 3. Hepatitis B and C serologies are negative. 4. She has a mild hypercalcemia probably secondary to her lymphoma. 5. Pretreatment cardiac ejection fraction satisfactory (60% by echo) Of note patient has a family history of breast and ovarian cancer (mother) and lymphoma (brother just recently diagnosed with lymphoma and has not started therapy yet) Plan: The patient has been thoroughly educated to risks/benefits associated with chemotherapy, Rituxan/Adriamycin/Cytoxan/vincristine/prednisone and Neulasta. Specifically, she has been educated to potential side effects, recommendations for symptom management, and circumstances in which she should contact provider immediately, such as the development of any signs/symptoms of infection inclusive of temperature > 100.4. Encouraged to go directly to ED should fever occur outside normal clinic hours. She has been provided written educational information and after hours contact information and prescription for prn antiemetics. (Already provided with prednisone and allopurinol). Greater than 50% of this one hour visit was spent in counseling and a significant amount of time was allotted for questions. All the patient's concerns were addressed to her satisfaction. Mer Bain, MSN, RELIEF CAPTAIN-C, AOCNP Medications: Prescriptions This Visit Medication Instructions Recorded Multivitamin [Multiple Vitamins] 1 tab PO DAILY 02/25/18 Medications Added to Medication List This Visit 0.9% Normal Saline 1,000 ml Med 03/25/18 00:00 Ordered Primary Care Provider: Catina Tejada MD Referring Provider: 03/24/18 1547 <Electronically signed by Mer KELLY> Date Mer KELLY Cosigner Signature: Date (if applicable) CC: ONCOLOGY VISIT REPORT Observed: 03/24/2018 Status: F Source: [place] 9:24 AM [facility] [address] [place] [id number] OFFICE VISIT Date of Service: 03/24/18913 MR#: [id number] Acct: [id number] Name: CORI CORRIGAN Rep #: [id number] : 1955 From: Sam Aiken MD Age/Sex: 62/F Location: OMD Status: Signed - Problem List (1) Follicular lymphoma grade III Status: Acute Qualifiers: Lymphoma site: axillary Qualified Code(s): C82.24 - Follicular lymphoma grade III, unspecified, lymph nodes of axilla and upper limb (2) Breast nodule Status: Suspected - Date of Service Date of Service:: 03/24/18 - Chief Complaint Lymphoma on treatment - History of Present Illness Patient is a 62-year-old female who presented with generalized lymphadenopathy and a biopsy revealed follicular lymphoma. February 13, 2018 Left groin lymph node, core biopsy: Consistent with follicular center lymphoma, grade 3/3 ANTIBODY / CLONE RESULT CD45 (RP2/18) positive AE1-3 (AE1/AE3/PCK26) negative S-100 (4C4.9) negative Vimentin (V9) positive P40 (BC28) negative P53 (DO-7) positive, rare Ki-67 (30-9) positive, low to moderate CD3 (PS1) negative CD5 (SP10) negative CD10 (56C6) positive CD15 (MMA) negative CD20 (L26) positive CD23 (1B12) negative CD30 (Constantino-H2) negative CD43 (L60) negative CD79a (11E3) positive CD138 (B-A38) negative BCL-2 (bcl-2/100/D5) positive BCL-6 (PQ138F/A8) positive Cyclin D1/BCL-1 (SP4) negative [place] (polyclonal) negative Lambda (polyclonal) negative MUM1 (MRQ-43) equivocal February 14, 2018 CT chest: FINDINGS: There is evidence of a bilateral supraclavicular lymphadenopathy worse on the left side. The largest measures 4.3 cm x 2.9 cm. This compresses the left lobe of the thyroid. There is also evidence of bilateral axillary lymphadenopathy worse on the left side. There is skin thickening of the left breast. There is a 1.7 cm x 1.2 cm nodule in the deep posterior lateral aspect of the left breast. Large left pleural effusion with mild loss in the right hemithorax. Small right pleural effusion. Normal heart and pericardium. Multiple mediastinal lymph nodes involving the anterior and middle mediastinum. There is evidence of a subcarinal lymphadenopathy as well as bilateral hilar lymphadenopathy. Normal enhanced pulmonary arteries. Normal aorta arch and descending thoracic aorta. There are multi-level degenerative changes of the thoracic spine. Increased kyphosis. Retroperitoneal lymphadenopathy. Periportal adenopathy. CT/Chest WITH Contrast IMPRESSION: Supraclavicular and bilateral axillary lymph nodes worse on the left side. Diffuse mediastinal and hilar lymphadenopathy with the bilateral pleural effusions left greater than right with atelectasis at the left lung base. February 14, 2018 CT abdomen and pelvis: FINDINGS: There is a 1.7 cm x 1.2 cm enhancing nodular density in the deep inferior lateral aspect of the left breast. There is evidence of diffuse skin thickening of the visualized portion of the left breast. Bilateral pleural effusions moderate on the left small on the right with underlying infiltration and/or atelectasis more prominent on the left side. Atelectasis along the anterior medial aspect of the lingular segment of the left upper lobe. The visualized portions of the heart are within normal limits. Normal liver. Normal gallbladder and extrahepatic biliary system. Mild splenomegaly. There is a 1 cm x 2.4 cm linear hypodensity along the posterior lateral aspect of the midportion of the spleen. This may represent an old laceration. Clinical correlation is recommended. Normal pancreas. Normal bilateral adrenal glands. Normal right kidney. Normal left kidney. Normal visualized stomach. Normal small intestine. Normal colon. The appendix is visualized and appears normal. There is diffuse atherosclerotic calcification of the abdominal aorta, without a demonstrated aneurysm. Normal inferior vena cava. There is retroperitoneal lymphadenopathy with enlarged nodes greater than 10-15mm in the short axis. Multiple rounded soft tissue densities are seen in the pelvis sidewalls in keeping with enlarged adenopathy as well as iliac chain adenopathy. There is also evidence of enlarged bilateral inguinal lymph nodes worse on the left side. Is also evidence of lymphadenopathy within the root of the mesentery. Normal urinary bladder. Normal abdominal wall. Mild dextroscoliosis. CT/Abdomen/Pelvis WITH Contrast IMPRESSION: Diffuse retroperitoneal lymphadenopathy as well as pelvic lymphadenopathy. Lymph nodes are seen in both inguinal regions more prominent on the left side. Bilateral pleural effusions left greater than right with underlying atelectasis and/or infiltration. Left breast skin thickening with the 1.7 cm x 1.2 cm nodular density in the deep inferior lateral aspect of the left breast. PET/CT March 11, 2018: FINDINGS: 1. Multifocal increased FDG concentration is manifest in the bilateral axillary, supraclavicular, anterior and lateral neck lymph node distributions, too many to individually articulate, generating a calculated maximal standard uptake value of 5.6. The Lugano Deauville score is 5. The maximal axial diameter of the largest individual hypermetabolic soft tissue density on review of CT of the neck-thorax dated 03/10/18 is 37.6-mm (transverse) x 22.1-mm (AP). 2. Enhanced glucose metabolism is manifest in the pre-subcarinal mediastinum generating a calculated maximal standard uptake value of 4.0. The Lugano Deauville score is 5. The maximal axial diameter of the largest individual metabolic, morphologic abnormality on review of CT of the thorax dated 03/10/18 is 37.8-mm (transverse) x 46.7-mm (AP). 3. Innumerable foci of facilitated labeled FDG uptake are noted in the upper to lower abdominal retroperitoneum, abdominal mesentery, the bilateral hemipelvis and right-left inguinal lymph node distributions. The calculated maximal standard uptake value is 6.1. The Lugano Deauville score is 5. The largest individual metabolic, morphologic abnormality on review of CT of the abdomen dated 03/10/18 is 25.3-mm (transverse) x 47.9-mm (AP). 4. Uniform enhanced radiopharmaceutical concentration is noted throughout the parenchyma of a normal size spleen generating a corrected calculated maximal standard uptake value of 3.8 (corrected) greater than that defined in the hepatic reference. The Lugano Deauville score is 5. 5. There is homogenous enhanced glucose concentration evidenced in the visualized appendicular and axial skeletal structures with a Lugano-Deauville score of 5. 6. Normal physiologic distribution of the radiopharmaceutical is apparent in the hepatic (2.8) parenchyma, both renal units, bladder and visualized intestinal tract. The visualized portion of the cerebral cortex, cerebellar hemispheres and basal ganglia demonstrates uniform and preserved glucose metabolism. Diffuse radiopharmaceutical concentration is noted in all four quadrants of the abdomen and pelvis. Pertinent CT findings are as follows: CHEST: Bilateral hemithorax pleural effusions are non-glucose avid. There are no parenchymal densities-nodules demonstrated in the right-left hemithorax demonstrating discernible increased glucose metabolism. There is atherosclerotic calcification defined in the thoracic aorta without evidence of dilatation-aneurysm formation. ABDOMEN AND PELVIS: There is atherosclerotic calcification defined in the abdominal aorta without evidence of dilatation-aneurysm formation. Pelvic arterial calcification is observed. Calcification is defined in the left lower hemipelvis. SKELETAL: Degenerative changes are noted in the cervical, thoracic and lumbar spine. PET/PET/CT Tumor Base -Thigh Init IMPRESSION: 1. ABNORMAL EXAMINATION INDICATIVE OF MALIGNANT VIABLE NEOPLASM. 2. Increased glucose concentration noted in the bilateral axillary and supraclavicular, right-left anterior and lateral neck structures fulfills quantitative criteria for viable neoplasm. 3. Neoplastic transformation is noted in the mediastinal structures. (Herlinda ward al, Journal of Clinical Oncology 16:2142, 1998). 4. Facilitated FDG uptake noted in the abdominal retroperitoneum and mesentery, bilateral hemipelvis and inguinal regions fulfills quantitative criteria for viable neoplasm. 5. There is evidence of viable neoplastic transformation involving the splenic parenchyma. (Vanessa ward al., Journal of Nuclear Medicine 44:1072, 2004). 6. Diffuse increased glucose concentration observed in the appendicular, axial skeletal structures likely represents neoplasm. (doyle Andrade, Clinical Nuclear Medicine, 29:161, 2004). Electronic Signature Germán Milner D.O. Treatment: R CHOP March 24, 2018- - Interval History Date of Admission: 03/17/18 Date of Discharge: 03/20/18 - Primary Discharge Diagnosis 1. Acute hypoxic respiratory insufficiency secondary to bilateral pleural effusions suspected secondary to malignancy 2. Acute diastolic CHF 3. Acute NSTEMI 4. Large left-sided pleural effusion, lymphocytic exudative suspected secondary to malignancy as a result of underlying follicular lymphoma grade 3 - Past Medical/Social History Social History Social History: No changes Smoking Status Current every day smoker Review of Systems Constitutional:: Reports: Weakness, Fatigue, Weight loss - Due to fluid diuresis, - - I feel much better this week. Denies: Fever, Sweats, Appetite change, Chills Cardiovascular:: Reports: Ankle swelling - Less with diuretics, Dyspnea on exertion. Denies: Chest pain, Palpitations, Orthopnea, PND, Shortness of breath Respiratory: Reports: Shortness of breath upon exertion. Denies: Cough, Hemoptysis, Shortness of Breath, Wheezing Gastrointestinal:: Denies: Abdominal pain, Nausea, Vomiting, Diarrhea, Constipation, Hematochezia Genitourinary: Denies: Dysuria, Hematuria, 15, Flank pain Musculoskeletal:: Denies: Back pain, Myalgia, Arthralgia Skin: Denies: Rash, Skin Changes, Wounds Neurological:: Denies: Headache, Dizziness, Visual changes, Tinnitus, Hearing loss Psychiatric: Denies: Anxiety, Depression, Homicidal Ideations, Suicidal Ideations Vital Signs Height 5 ft 2 in Weight: 78.744 kg Weight in Pounds 173.6 lbs Pulse Ox 96 - Physical Exam General: Alert, Oriented x3, No apparent distress, - - ECOG 1 HEENT: Atraumatic, PERRLA, EOMI, Normocephalic Oropharynx:: Dry mucosa Neck:: Supple, Trachea midline, - - Port okay. Negative for: JVD, bilateral Cardiac:: Regular rate, Regular rhythm, Normal S1, Normal S2. Negative for: Murmur Lungs: Clear to auscultation, Diminished - Over the basis, Excusion symmetrical. Negative for: Rhonchi, Wheezes Abdomen:: Soft, Non-tender, Non-distended. Negative for: Hepatosplenomegaly Extremities:: Edema - 1+ bilateral. Negative for: Cyanosis Neurological: Neuro grossly intact Skin:: Negative for: Lesions, Rash, Petechiae, Ecchymosis Psychiatric:: Appropriate affect, Euthymic Lymphatics:: Cervical lymphadenopathy, Supraclavicular lymphadenopathy, Axillary lymphadenopathy, Inguinal lymphadenopathy Laboratory Data: Laboratory Tests WBC 8.8 (4.4-11.0) K/mm3 RBC 4.35 (4.2-5.4) M/mm3 Hgb 12.9 (12.0-15.0) g/dl Hct 39.5 (37-47) % MCV 90.8 (81-99) fL Diagnostic Data: Diagnostic Data PET, CT Tumor Imaging 03/10/18 09:33 IMPRESSION: 1. ABNORMAL EXAMINATION INDICATIVE OF MALIGNANT VIABLE NEOPLASM. 2. Increased glucose concentration noted in the bilateral axillary and supraclavicular, right-left anterior and lateral neck structures fulfills quantitative criteria for viable neoplasm. 3. Neoplastic transformation is noted in the mediastinal structures. (Herlinda ward al, Journal of Clinical Oncology 16:2142, 1998). 4. Facilitated FDG uptake noted in the abdominal retroperitoneum and mesentery, bilateral hemipelvis and inguinal regions fulfills quantitative criteria for viable neoplasm. 5. There is evidence of viable neoplastic transformation involving the splenic parenchyma. (Vanessa et al., Journal of Nuclear Medicine 44:1072, 2004). 6. Diffuse increased glucose concentration observed in the appendicular, axial skeletal structures likely represents neoplasm. (Lupe et namita, Clinical Nuclear Medicine, 29:161, 2004). Electronic Signature Germán Milner D.O. Electronically Signed: Germán Milner DO at 22:33 EST Tel , Service support , Assessment and Plan 62-year-old female with: 1. 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 Her FLIPI score of 4 (age above 60, elevated LDH, stage IV and more than 4 kate areas involved) puts her at the high risk group (2-year overall survival of 87%, 2-year progression free survival of 65%, and median progression free survival 42 months) for those treated with systemic therapy including Rituxan. She has had a rather aggressive course with rapidly enlarging generalized lymphadenopathy over the course of 1-2 months in addition to a moderate size left pleural effusion that may be due to lymphomatous involvement or disruption of lymphatic drainage by lymphoma. She had a diagnostic and therapeutic thoracocentesis with negative cytology March 19, 2018. 2. Left breast nodule on CT but not on mammography or ultrasound and mammographic abnormalities noted more likely related to impairment of lymph drainage from the breast due to lymphomatous involvement of axillary nodes (discussed with Dr. Martin). 3. Hepatitis B and C serologies are negative. 4. She has a mild hypercalcemia probably secondary to her lymphoma. 5. Pretreatment cardiac ejection fraction satisfactory (60% by echo) Of note patient has a family history of breast and ovarian cancer (mother) and lymphoma (brother just recently diagnosed with lymphoma and has not started therapy yet) Plan: 1. Systemic chemotherapy with R CHOP support with Neulasta start cycle 1. 2. Tumor lysis prophylaxis during cycle 1 with allopurinol 300 mg daily for 1 week started 24 hours prior to systemic therapy, oral and vigorous IV hydration days 1-3. 3. Mild hypercalcemia: Hydration and treatment of lymphoma. Patient was seen was her , impression and plan discussed. Medications: Prescriptions This Visit Medication Instructions Recorded Multivitamin [Multiple Vitamins] 1 tab PO DAILY 02/25/18 Primary Care Provider: Catina Tejada MD Referring Provider: 03/24/18 0924 <Electronically signed by Sam Aiken MD> Date Sam Aiken MD Cosigner Signature: Date (if applicable) CC: COMPREHENSIVE METABOLIC Collected: 03/24/2018 Status: F Source: [place] 8:00 AM [facility] REPOSITORY Order Comment: Serial Specimen #1, #2 or #3? 1 TYPE CODE TESTS RESULT OUT OF RANGE REFERENCE UNITS LAB L501.0100 74-106 mg/dL Normal GLU 81 Result Comment: Please note revised GLUCOSE reference range effective 2017. LAB L501.1000 7-18 mg/dL High BUN 28 LAB L501.1100 0.55-1.02 mg/dL Normal CREAT,SERUM 0.66 Result Comment: The validity of the calculated GFR AND GFRAA in patients over 70 years has not been determined. Clinical correlation is essential. LAB L501.1110 >60 mL/min Normal EST GFR 96 Result Comment: Non- GFR Calc LAB L501.1115 >60 mL/min Normal EST GFR - AA 116 Result Comment: GFR Calc LAB L501.1255 ml/min Normal Estimated CRCL 68.11 LAB L501.1300 10-20 RATIO High BUN/CRE 42.6 LAB L501.1500 6.4-8. g/dL Normal 2 T PROT 6.4 LAB L501.1800 3.2-5. g/dL Normal 0 ALB 3.4 LAB L501.1950 2.2-4. g/dL Normal 2 GLOB 3.0 LAB L501.2000 0.9-2. RATIO Normal 4 A/G 1.1 LAB L501.2200 8.5-10 mg/dL Normal .1 CA 9.7 LAB L501.4100 15-37 U/L Normal AST 26 LAB L501.4305 45-117 U/L Normal ALK P 57 LAB L501.4405 13-56 U/L Normal ALT 22 LAB L501.4600 0.20-1 mg/dL Normal .00 T BILI 0.40 LAB L501.5300 136-14 mmol/L Low 5 NA 135 LAB L501.5600 3.5-5. mmol/L Normal 1 K 4.1 LAB L501.5900 98-107 mmol/L Normal CL 99 LAB L501.6100 21.0-3 mmol/L Normal 2.0 CO2 32.0 LAB L501.6200 5-15 Low GAP 4 Performed By: #### L500.4050, L501.1400, L504.2610 #### [facility] [place], [address] URIC ACID Collected: 03/24/2018 Status: F Source: [place] 8:00 AM [facility] REPOSITORY Order Comment: Serial Specimen #1, #2 or #3? 1 TYPE CODE TESTS RESULT OUT OF RANGE REFERENCE UNITS LAB L501.1400 2.6-6.0 mg/dL Normal URIC 4.2 Result Comment: The drugs N-Acetylcysteine and Metamizole may falsely depress this assay. Performed By: #### L500.4050, L501.1400, L504.2610 #### [facility] [address] [place], [address] LDH Collected: 03/24/2018 Status: F Source: [place] 8:00 AM [facility] REPOSITORY Order Comment: Serial Specimen #1, #2 or #3? 1 TYPE CODE TESTS RESULT OUT OF RANGE REFERENCE UNITS LAB L504.2610 84-246 U/L High LDH 262 Performed By: #### L500.4050, L501.1400, L504.2610 #### [facility] [address] [place], [address] CBC W/DIFF, AUTOMATED Collected: 03/24/2018 Status: F Source: [place] 7:59 AM [facility] REPOSITORY TYPE CODE TESTS RESULT OUT OF RANGE REFERENCE UNITS LAB L100.1000 4.4-11.0 K/mm3 Normal WBC 8.8 LAB L100.1200 4.2-5.4 M/mm3 Normal RBC 4.35 LAB L100.1300 12.0-15.0 g/dl Normal HGB 12.9 LAB L100.1400 37-47 % Normal HCT 39.5 LAB L100.1500 81-99 fL Normal MCV 90.8 LAB L100.1600 27.0-32.0 pg Normal MCH 29.7 LAB L100.1700 32-36 g/gl Normal MCHC 32.7 LAB L100.1810 11.6-14.6 % High RDW CV 14.9 LAB L100.1820 35.1-43.9 fl High RDW SD 49.4 LAB L100.1900 150-450 K/mm3 Normal PLT 223 LAB L100.2000 6.2-12.0 fl High MPV 12.4 LAB L100.2100 47-70 % Normal NEUT% 55.1 LAB L100.2200 19-41 % Normal LY% 21.1 LAB L100.2300 0-10 % High MONO% 22.7 LAB L100.2400 0-5 % Normal EO% 0.8 LAB L100.2500 0-1 % Normal BASO% 0.2 LAB L100.2550 0.0-0.9 % Normal IM GRAN % 0.100 Result Comment: IG% - Immature Granulocytes (promyelocytes, myelocytes and metamyelocytes) > 1% indicates that a LEFT SHIFT is Present. LAB L100.2620 2.0-7.7 X10 3/uL Normal Absolute Neut 4.8 LAB L100.2720 0.83-4.51 X10 3/ul Normal Absolute Lymph 1.85 LAB L100.4500 Normal SMEAR COMMENT COMMENT Result Comment: SLIDE SCANNED - MONOCYTOSIS NOTED. Performed By: #### L100.0100 #### [facility] [address] [facility] 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 Cori Corrigan is a very pleasant 62-year-old woman with past medical history positive for hypertension who presented with generalized lymphadenopathy and a biopsy revealed follicular lymphoma, grade 3. Found to be stage MAXINE with generalized lymphadenopathy, splenomegaly and bone marrow involvement by PET CT. FLIPI score of 4. Incidental finding of Left breast nodule visualized on CT but not on mammography or ultrasound. Believed to be a result of impairment of lymph drainage from the breast due to lymphomatous involvement of axillary nodes. Scheduled to commence with cycle 1 R CHOP on 03/19/2018 however patient presented to [facility] ED on 03/17/2018 with complaints of worsening dyspnea, both exertional and at rest. CTA showed moderate to large left pleural effusion and moderate right pleural effusion and mediastinal adenopathy, with no change from prior study, negative for pulmonary embolism. Admitted for management of NSTEMI bilateral pleural effusions. Surface echocardiogram revealed normal LV size and function with an ejection fraction of 50%. There was mild global hypokinesis of the LV. Underwent therapeutic left-sided thoracentesis earlier this morning. Patient reports shortness of breath modestly improved. Bilateral lower extremity edema modestly improved subsequent to diuresis yesterday. Past Medical/Surgical History: Past Medical History - Most Recent Inpatient Visit Past Medical History Start: 03/17/18 19:53 Text: Status: Complete Freq: ONCE Protocol: Document 03/17/18 20:58 [facility] (Rec: 03/17/18 21:02 [facility] [id number]) BMI Required to complete PMH What is Patient's BMI 31.8 Past Medical History Unable History Recalled No Query Text:Pt Unable/Family Not Present Neurologic Medical History Hx Stroke/TIA No Hx Dementia/Alzheimer's No Hx Parkinson's Disease No Hx Seizures No Hx Multiple Sclerosis No Hx Migraines No Cardiac Medical History VTE Present on Admission No Hx of Deep Vein Thrombosis/VTE/PE No Hx Hypertension No Hx Chest Pain/Angina No Hx Heart Attack No Hx Cardiac Surgery/Stents/Etc. No Hx Heart Failure No Hx Pacemaker/AICD No Hx Irregular Heartbeat and/or Afib No Hx Anticoagulant Therapy No Query Text:(Coumadin, Aspirin, Plavix, Xarelto, etc.) Hx Pain in Legs when Walking/Leg Cramps Yes: D/T SWELLING Respiratory Medical History Hx COPD No Hx Emphysema No Hx Smoking Yes: QUIT 4 WKS AGO Smoking Status Former smoker Tobacco Use Cigarettes Years Smoking 30 Hx Smoking Cessation Counseling No Hx Smoking Exposure Yes Hx Tobacco Use in last 12 months Yes Sent to [facility] Yes Hx of Pipe Smoking No Hx of Cigar Smoking No Hx Sleep Apnea No Do you snore loudly (louder than talking No or can be heard through closed doors)? Do you often feel tired/ fatigued/ No sleepy during daytime? Has anyone observed you stop breathing No during sleep? STOP Results Negative GI Medical History Hx Ulcer No Hx Hepatitis No Hx Cirrhosis No Hx GI Bleed No Hx Unplanned Weight Loss No Genitourinary Medical History Indwelling Catheter in Place on Arrival/ No Admission Hx Renal Disease No Hx Dialysis No Musculoskeletal History Hx Arthritis No Hx Rheumatoid Arthritis No Endocrine Medical History Hx Diabetes No Hx Thyroid Disease No Hematologic Medical History Hx of Blood Transfusion No Hx of Transfusion in last 3 Months No Ever experience any problems with No transfusion(s)? Hx of Preganancy in last 3 Months N/A Nurse Filling Out Transfusion AND [id number] Questions: Date: 03/17/18 Time: 21:01 Psycho/Social Medical History Hx Depression No Hx Anxiety No Hx Behavior Disorder No Hx Alcohol Use No Hx Substance Use No Other Medical History Hx Blood Disorders No Hx Anemia No Hx Cancer Yes: LYMPHOMA Hx Drug Resistant Organism No Wound/Pressure Injury Present on Arrival No /Admission Query Text:If yes, chart assessment in Shift/Clinical Findings Central Line/PICC/VAD Present on Arrival Yes /Admission Antibiotics within last 7 days? No Comments Right uppper chest new port for chemotherapy Methicillin Resistant Staphylococcus aureus Screening Active MRSA No Risk for Readmission Number of Risk Factors 2 At Risk for Readmission Patient is At Risk For Readmission Patient is eligible for Call Back Y Past Medical History (Last Reviewed 03/13/18 @ 14:52 by Taty Veliz) Constipation (Acute) Lymphadenopathy (Acute) Past Surgical History (Last Reviewed 03/13/18 @ 14:52 by Taty Veliz) Hx of lymph node biopsy (Acute 02/2018) No history of previous surgery (Acute) Maternal Family History: Family History (Last Reviewed 03/13/18 @ 14:52 by Taty Veliz) Father Diabetes Arthritis Heart disease Kidney disease Stomach ulcer Hypertension Sister Diabetes Arthritis Heart disease Hypertension Thyroid disorder Mother Breast cancer Cancer Brother Diabetes Kidney disease Hypertension Lymphoma Family History: Cancer, Heart Disease Paternal Family History: Family History (Last Reviewed 03/13/18 @ 14:52 by Taty Veliz) Father Diabetes Arthritis Heart disease Kidney disease Stomach ulcer Hypertension Sister Diabetes Arthritis Heart disease Hypertension Thyroid disorder Mother Breast cancer Cancer Brother Diabetes Kidney disease Hypertension Lymphoma Family History: High Cholesterol, Heart Disease, Hypertension Sibling Family History: Family History (Last Reviewed 03/13/18 @ 14:52 by Taty Veliz) Father Diabetes Arthritis Heart disease Kidney disease Stomach ulcer Hypertension Sister Diabetes Arthritis Heart disease Hypertension Thyroid disorder Mother Breast cancer Cancer Brother Diabetes Kidney disease Hypertension Lymphoma Family History: Cancer - Social History Smoking Status: Former smoker Tobacco Use: Cigarettes Alcohol: None Drugs: None Allergies/Adverse Reactions: Allergy/AdvReac Type Severity Reaction Status Date / Time No Known Allergies Allergy Verified 03/17/18 14:57 Review of Systems Constitutional:: Reports: Weakness, Fatigue, Appetite change. Denies: Fever, Sweats, Weight loss, Chills Cardiovascular:: Reports: Dyspnea on exertion. Denies: Chest pain, Palpitations, Orthopnea, PND, Shortness of breath Respiratory: Reports: Shortness of breath at rest, Shortness of breath upon exertion. Denies: Cough, Hemoptysis, Wheezing Gastrointestinal:: Denies: Abdominal pain, Nausea, Vomiting, Diarrhea, Constipation, Melena, Hematochezia Genitourinary: Reports: Urinary frequency. Denies: Dysuria, Hematuria, Flank pain Musculoskeletal:: Denies: Back pain, Myalgia, Arthralgia Skin: Denies: Rash, Skin Changes, Wounds Neurological:: Denies: Headache, Dizziness, Numbness, Tingling, Frequent falls, Visual changes, Tinnitus, Hearing loss Psychiatric: Denies: Anxiety, Depression, Homicidal Ideations, Suicidal Ideations Vital Signs Height 5 ft 3 in Weight: 178 lb 12.718 oz Weight in Pounds 178.8 lbs Pulse Ox 94 Temperature 97.8 F - Physical Exam General: Alert, Oriented x3, No apparent distress HEENT: Atraumatic, PERRLA, EOMI, Normocephalic Oropharynx:: Negative for: Dry mucosa, Ulcerated lesions Neck:: Supple, Trachea midline. Negative for: JVD, bilateral Cardiac:: Regular rate, Regular rhythm, Normal S1, Normal S2. Negative for: Murmur Lungs: Clear to auscultation, Diminished - Bilateral, Excusion symmetrical. Negative for: Rhonchi, Wheezes, Tachypneic, Increased respiratory effort Abdomen:: Bowel sounds x 4, Soft, Non-tender, Non-distended. Negative for: Hepatosplenomegaly Extremities:: Negative for: Cyanosis, Edema Neurological: Neuro grossly intact Skin:: - - Port right upper chest covered with DSD, surrounding integument intact without erythema edema or increased warmth. Negative for: Lesions, Rash, Petechiae, Ecchymosis Psychiatric:: Appropriate affect, Euthymic Lymphatics:: Cervical lymphadenopathy, Supraclavicular lymphadenopathy, Axillary lymphadenopathy Laboratory Data: Laboratory Tests WBC (4.4-11.0) K/mm3 RBC (4.2-5.4) M/mm3 Hgb (12.0-15.0) g/dl Hct (37-47) % MCV (81-99) fL MCH (27.0-32.0) pg Diagnostic Data: Diagnostic Data Chest CTA 03/17/18 17:49 IMPRESSION: 1. No evidence of pulmonary embolus or aortic dissection. 2. Moderate to large bilateral pleural effusions. No change from the prior study. 3. Moderate to marked mediastinal and axillary adenopathy. No change from prior. Electronically Signed: Mariama Saha MD at 19:07 EST Tel , Service support , Thoracentesis Ultrasound 03/19/18 09:30 IMPRESSION: Ultrasound-guided left thoracentesis. Electronically Signed: Denny Juarez MD at 13:07 EST Tel [phone], Service support , Chest X-Ray 03/19/18 10:35 IMPRESSION: Status post left thoracentesis. There is no evidence of pneumothorax. Electronically Signed: Denny Juarez MD at 12:43 EST Tel [phone], Service support , Assessment and Plan Patient is a 62-year-old lady recently diagnosed with follicular lymphoma scheduled to initiate chemotherapy 03/19/18 who presented 03/17/18 with progressive shortness of breath. Patient was found to have elevated troponin consistent with acute non- STEMI in addition to bilateral moderate to large pleural effusion. Admitted for management. 1. 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 Her FLIPI score is 4 (age above 60, elevated LDH, stage IV and more than 4 kate areas involved) puts her at the high risk group. She has had a rather aggressive course with rapidly enlarging generalized lymphadenopathy over the course of 1- 2 months in addition to a moderate size left pleural effusion that may be due to lymphomatous involvement or disruption of lymphatic drainage by lymphoma (discussed below) Patient was supposed to begin systemic chemotherapy with R CHOP today. Tentatively we will plan to begin systemic chemotherapy on 03/24/2018 in the ambulatory setting. May be prudent to begin prednisone now. Orders placed for 100 mg p.o. daily times 5 days starting today. Potential side effects associated with high-dose steroids reviewed with the patient. Orders also placed for PPI for GI prophylaxis. Patient to continue allopurinol 300 mg daily times 10 days for tumor lysis syndrome prevention given the context of high tumor burden. 2. Large left-sided pleural effusion-underwent therapeutic thoracentesis earlier today. Likely a result of lymphatic obstruction. Best course of action is to initiate chemotherapy as soon as possible. 3. Mild hypercalcemia as evidenced by calcium level today of 10.5. Presumably hypercalcemia of malignancy, again will commence with chemotherapy as soon as possible, recommend p.o. fluid push in outpatient setting. Will continue to monitor. 4. Acute diastolic congestive heart failure-patient is being managed with diuresis and strict I AND O. Surface echocardiogram 03/18/2018 revealed normal LV size and function with an ejection fraction of 50%. EF sufficient to commence with doxorubicin. 5. DVT prophylaxis SC Lovenox Case discussed with Dr. Aiken who is in agreement with aforementioned plan. Mer Bain, MSN, CLINICAL LAB ASSISTANT, AOCNP Medications: Prescriptions This Visit Medication Instructions Recorded Aspirin E.C. [Ecotrin] 325 mg PO PRN PRN 03/17/18 Hydrocodone/Acetaminophen [[place] 1 tab PO PRN PRN 03/17/18 5-325 Tablet] Medications Added to Medication List This Visit Allopurinol [Zyloprim] Med 03/19/18 08:00 Active 300 mg PO DAILYCM Pantoprazole Sodium [Protonix] Med 03/19/18 14:02 Once Primary Care Provider: Catina Tejada MD Referring Provider: Apolonia Moe MD 03/20/18 8732 <Electronically signed by Mer CHARLESC> Date Mer CHARLESC Cosigner Signature (if applicable): Date CC: Matias Tapia MD; Alfred Ruiz D.O.; Catina Tejada MD; Sam Aiken MD; Apolonia Moe MD Signed 12 LEAD ELECTROCARDIOGRAM Observed: 03/20/2018 Status: F Source: [place] 1:39 PM [facility] Cardiovascular Services [address] [place] [address] 12 Lead EKG 03/17/18 1640 MR#: [id number] Acct: [id number] Name: CORI CORRIGAN Rep #: [id number] : 1955 62 From: Thomas Chan MD Attending Dr: Elmer Vuong MD Status: DIS IN Ordering Dr: Killian Lacy MD Date: 03/17/18 Location: [facility] Sex: F C Admitted: 03/17/18 Test Reason : SOB Blood Pressure : / mmHG Vent. Rate : 075 BPM Atrial Rate : 075 BPM P-R Int : 128 ms QRS Dur : 076 ms QT Int : 392 ms P-R-T Axes : 023 014 136 degrees QTc Int : 437 ms Normal sinus rhythm Low voltage QRS Nonspecific T wave abnormality Abnormal ECG Confirmed by ROCIO MATA, THOMAS ([id number]), features editor KENNY CANDELARIO ([id number]) on 03/20/2018 1:39:07 PM Referred By: Apolonia Moe Confirmed By:THOMAS CHAN MD 03/20/18 1339 Date Thomas Chan MD CC: Elmer Vuong MD; Catina Tejada MD; Apolonia Moe MD; Killian Lacy MD Signed DISCHARGE SUMMARY Observed: 03/20/2018 Status: F Source: [place] 1:04 PM [facility] Medical Records Department [address] [place] [address] Discharge Summary 03/20/18 1057 MR#: [id number] Acct: [id number] Name: CORI CORRIGAN Rep #: [id number] : 1955 62 From: Lianna Clayton CENTER MACHINE SET UP OPERATOR-C PCP: Catina Tejada MD Status: ADM IN Y Location: [facility] [id number] <Lianna Clayton - Last Filed: 03/20/18 11:11> Discharge Date and Diagnosis Date of Admission: 03/17/18 Date of Discharge: 03/20/18 - Primary Discharge Diagnosis 1. Acute hypoxic respiratory insufficiency secondary to bilateral pleural effusions suspected secondary to malignancy 2. Acute diastolic CHF 3. Acute NSTEMI 4. Large left-sided pleural effusion, lymphocytic exudative suspected secondary to malignancy as a result of underlying follicular lymphoma grade 3 Hospital Course and Treatment Imaging Results: Diagnostic Data Chest CTA 03/17/18 17:49 IMPRESSION: 1. No evidence of pulmonary embolus or aortic dissection. 2. Moderate to large bilateral pleural effusions. No change from the prior study. 3. Moderate to marked mediastinal and axillary adenopathy. No change from prior. Electronically Signed: Mariama Saha MD at 19:07 EST Tel , Service support , Thoracentesis Ultrasound 03/19/18 09:30 IMPRESSION: Ultrasound-guided left thoracentesis. Electronically Signed: Denny Juarez MD at 13:07 EST Tel [phone], Service support , Chest X-Ray 03/19/18 10:35 IMPRESSION: Status post left thoracentesis. There is no evidence of pneumothorax. Electronically Signed: Denny Juarez MD at 12:43 EST Tel [phone], Service support , Dr. Ruiz- Pulmonary Medicine Dr. Tapia- Cardiology Dr. Aiken- Oncology Operations: None Procedures: 2-D Echocardiogram, Thoracentesis Summary of Care Provided: The patient is a 62 year old F admitted 03/17/2018 due to shortness of breath. She was recently diagnosed with follicular lymphoma. 1. Acute hypoxic respiratory insufficiency secondary to bilateral pleural effusions suspected secondary to malignancy-patient requires supplemental oxygen with ambulation. She is ambulatory in the home. Continue supplemental oxygen with ambulation to maintain O2 at or above 90%. 2. Acute diastolic CHF-echocardiogram with EF 60%. Cardiology consulted during admission. Patient will continue Lasix 40 mg daily at discharge. Follow- up with cardiology in 1-2 weeks. 3. Acute NSTEMI-unclear etiology. Further invasive workup not pursued given extensive tumor burden. Patient will continue aspirin, statin, beta-alia. Follow-up with cardiology as noted above. 4. Large left-sided pleural effusion, lymphocytic exudative suspected secondary to malignancy as a result of underlying follicular lymphoma grade 3-oncology consulted. Patient will continue prednisone 100 mg daily through 9017. Continue allopurinol 300 mg daily for 10 days. Patient is to begin chemo 03/24/2018. Continue outpatient oncology follow-up as scheduled. General: Awake, Alert, Oriented x 3 HEENT: PERRLA, EOMI, Atraumatic Neck: Supple, negative carotid bruits Lungs: Diminished, clear to auscultation Cardiovascular: Regular Rhythm, Normal S1, Normal S2, No Murmurs, No Rubs, No Gallops Abdomen: Bowel Sounds Present, Soft, Non Tender, No HSM, No Organomegaly Extremities: No Cyanosis, No Clubbing, bilateral lower extremity edema, nonpitting Skin: No Rashes Lymphatic: No Lymph Node Enlargement Neurological: No Focal Motor or Sensory Deficit, neuro grossly intact Psych/Mental Status: Appropriate, normal affect Patient seen and examined prior to discharge. Physical assessment as noted above. Patient is stable for discharge with follow up recommendations as noted above. This patient was seen by LETICIA Isidro under the supervision of Dr. Vuong. - Physical Exam Vital Signs Temp Pulse Resp BP Pulse Ox 98.2 F 68 20 H 125/72 H 96 03/20/18 09:05 03/20/18 09:07 03/20/18 09:05 03/20/18 09:05 03/20/18 10:05 Oxygen Flow Rate (L/min) [3] 2 Oxygen Flow Rate (L/min) [2] 2 Oxygen Flow Rate (L/min) [1 ( 2 Initial Baseline)] Oxygen Flow Rate (L/min) [ 2 AMBULATION with Oxygen] Oxygen Flow Rate (L/min) 1.5 Oxygen Delivery Method [3] Nasal Cannula Oxygen Delivery Method [2] Nasal Cannula Oxygen Delivery Method [1 ( Nasal Cannula Initial Baseline)] Oxygen Delivery Method Room Air Weight: 168 lb 6.931 oz Body Mass Index (BMI) 31.8 Intake and Output for Last 24 Hours Intake Total 665 / 665 1080 / 1080 Output Total 1425 / 1425 3025 / 3025 Balance -760 / -760 -1945 / -1945 Microbiology Past 72 Hours 03/19/18 Unknown Gram Stain - Final Fluid - Thoracentesis Fluid Body Fluid Culture - Preliminary Laboratory Tests Past 24 Hrs WBC WBC 7.1 Discharge Diet: No Restrictions Discharge Activity: Return to Normal Activity Call your doctor if you observe: Shortness of breath, Dizziness, Fainting spells, Chest pain Home Medications: Medications to take at Discharge aspirin 81 mg tablet,delayed release 81 mg PO DAILY 02/10/18 omega-3 fatty acids 1,000 mg capsule 1,000 mg PO DAILY 02/10/18 Multivitamin [Multiple Vitamins] 1 tab PO DAILY 02/25/18 Aspirin E.C. [Ecotrin] 325 mg PO PRN PRN 03/17/18 Hydrocodone/Acetaminophen [[place] 5-325 Tablet] 1 tab PO PRN PRN 03/17/18 Allopurinol [Zyloprim] 300 mg PO DAILYCM #8 tablet 03/20/18 Atorvastatin Calcium [Lipitor] 40 mg PO QHS #30 tablet 03/20/18 Furosemide [Lasix] 40 mg PO DAILY #30 tablet 03/20/18 Metoprolol(XL)Succ [Toprol Xl (Beta Alia)] 25 mg PO DAILY #30 tablet 03/20/18 predniSONE tablet 100 mg PO DAILY@0800 #15 tablet 03/20/18 Following Prescrptions Were Given to Patient: Allopurinol [Zyloprim] 300 mg PO DAILYCM #8 tablet Atorvastatin Calcium [Lipitor] 40 mg PO QHS #30 tablet Furosemide [Lasix] 40 mg PO DAILY #30 tablet Metoprolol(XL)Succ [Toprol Xl (Beta Alia)] 25 mg PO DAILY #30 tablet predniSONE tablet 100 mg PO DAILY@0800 #15 tablet Primary Care Physician: Catina Tejada MD [Primary Care Provider] - Please follow up with your Primary Care Physician in: 1 Week Please Follow Up With: Mer Bain NP-C When: As scheduled, 03/24/2018 Please Follow Up With: Matias Tapia MD When: 1-2 Weeks Disposition: Home Minutes spent on discharge:: 35 Patient Condition:: Stable Medical Necessity - Tobacco Use Smoking Status: Former smoker Tobacco Use: Cigarettes Meaningful Use Info Meaningful Use Diagnoses (Choose all that apply): CHF - CHF ARIELLE/ARB ordered at discharge?: No Reason ARIELLE/ARB not ordered?: Allergy Documented LVEF (%): 50 - Not indicated due to preserved EF <Elmer Vuong - Last Filed: 03/20/18 13:04> Hospital Course and Treatment Summary of Care Provided: This patient was seen in conjunction with LETICIA Isidro . I have independently interviewed and examined the patient and reviewed pertinent historical, laboratory, and other data. Please refer to LETICIA Isidro note for details of this patient's presentation, findings, and recommendations. I have reviewed LETICIA Isidro note and concur with documented findings. In brief, Patient is a 62-year-old lady recently diagnosed with follicular lymphoma scheduled to initiate chemotherapy who presented with progressive shortness of breath. Patient was found to have elevated troponin consistent with acute non-STEMI in addition to bilateral moderate to large pleural effusion. Admitted to a monitored bed with consultation placed to both pulmonary medicine as well as cardiology. Patient is scheduled to undergo ultrasound-guided thoracocentesis on 03/19/2018. Assessment: 1. Acute respiratory insufficiency secondary to bilateral pleural effusion suspected to be malignant in nature. 2. Acute diastolic congestive heart failure patient started on Lasix monitoring strict input and output. An echo obtained on 03/07/2018 demonstrated ejection fraction of 60% with a pulmonary artery systolic pressure of 33 mmHg 3. Acute non-STEMI: Troponin peaked at 3.4. 4. Large left-sided pleural effusion suspected to be secondary to malignant pleural effusion 5. Follicular lymphoma grade 3 6. DVT prophylaxis SC Lovenox Hospital course: As told above by Lianna Clayton - Physical Exam Vital Signs Temp Pulse Resp BP Pulse Ox 98.2 F 84 20 H 125/72 H 96 03/20/18 09:05 03/20/18 11:01 03/20/18 09:05 03/20/18 09:05 03/20/18 10:05 Oxygen Flow Rate (L/min) [3] 2 Oxygen Flow Rate (L/min) [2] 2 Oxygen Flow Rate (L/min) [1 ( 2 Initial Baseline)] Oxygen Flow Rate (L/min) [ 2 AMBULATION with Oxygen] Oxygen Flow Rate (L/min) 1.5 Oxygen Delivery Method [3] Nasal Cannula Oxygen Delivery Method [2] Nasal Cannula Oxygen Delivery Method [1 ( Nasal Cannula Initial Baseline)] Oxygen Delivery Method Room Air Weight: 76.4 kg Body Mass Index (BMI) 31.8 Intake and Output for Last 24 Hours Intake Total 665 / 665 1080 / 1080 Output Total 1425 / 1425 3025 / 3025 Balance -760 / -760 -1945 / -1945 Microbiology Past 72 Hours 03/19/18 Unknown Gram Stain - Final Fluid - Thoracentesis Fluid Body Fluid Culture - Preliminary Laboratory Tests Past 24 Hrs WBC 7.1 RBC 4.10 L Hgb 12.3 Hct 36.5 L MCV 89.0 MCH 30.0 MCHC 33.7 RDW 14.7 H Code Visit Inpatient E AND M: [id number] Disch Hosp 03/20/18 1112 <Electronically signed by Lianna KELLY> Date Lianna KELLY 03/20/18 1304<Electronically signed by Elmer Vuong MD> Cosigner Signature (if applicable): Date Elmer Vuong MD CC: LETICIA Clayton; Elmer Vuong MD; Catina Tejada MD Signed DISCHARGE INSTRUCTION Observed: 03/20/2018 Status: F Source: [place] 11:06 AM [facility] Medical Records Department [address] [place] [address] Instructions for Home/Discharge Instructions 03/20/18 1016 MR#: [id number] Acct: [id number] Name: CORI CORRIGAN Rep #: [id number] : 1955 62 From: Lianna KELLY PCP: Catina Tejada MD Status: ADM IN ADDENDUM by LETICIA Clayton on 03/20/18 at [address] Tapia in 1-2 Weeks 03/20/18 1105 Date Lianna Clayton cc: Matias Tapia MD; Alfred Ruiz D.O.; Catina Tejada MD; Sam Aiken MD * Signed You will use the following diet at home:: No restrictions Discharge Activity: Return to Normal Activity Call your doctor if you observe: Shortness of breath, Dizziness, Fainting spells, Chest pain Additional Instructions: Continue supplemental oxygen to maintain O2 at or above 90%. Allergies/Adverse Reactions: Allergies No Known Allergies Allergy (Verified 03/17/18 14:57) Medications to take at Discharge aspirin 81 mg tablet,delayed release 81 mg PO DAILY 02/10/18 omega-3 fatty acids 1,000 mg capsule 1,000 mg PO DAILY 02/10/18 Multivitamin [Multiple Vitamins] 1 tab PO DAILY 02/25/18 Aspirin E.C. [Ecotrin] 325 mg PO PRN PRN 03/17/18 Hydrocodone/Acetaminophen [[place] 5-325 Tablet] 1 tab PO PRN PRN 03/17/18 Allopurinol [Zyloprim] 300 mg PO DAILYCM #8 tablet 03/20/18 Atorvastatin Calcium [Lipitor] 40 mg PO QHS #30 tablet 03/20/18 Furosemide [Lasix] 40 mg PO DAILY #30 tablet 03/20/18 Metoprolol(XL)Succ [Toprol Xl (Beta Alia)] 25 mg PO DAILY #30 tablet 03/20/18 predniSONE tablet 100 mg PO DAILY@0800 #15 tablet 03/20/18 The following prescriptions were given: Allopurinol [Zyloprim] 300 mg PO DAILYCM #8 tablet Atorvastatin Calcium [Lipitor] 40 mg PO QHS #30 tablet Furosemide [Lasix] 40 mg PO DAILY #30 tablet Metoprolol(XL)Succ [Toprol Xl (Beta Alia)] 25 mg PO DAILY #30 tablet predniSONE tablet 100 mg PO DAILY@0800 #15 tablet Primary Care Physician: Catina Tejada MD [Primary Care Provider] - Please follow up with your Primary Care Physician in: 1 Week Test Results: Test results from this visit will be discussed in further detail at your follow-up appointment, if applicable. Please Follow Up With: Mer Bain NP-C When: As scheduled, 03/24/2018 Proposed Discharge Date: 03/20/18 03/20/18 1057 <Electronically signed by Lianna KELLY> Date Lianna KELLY CC: Matias Tapia MD; Alfred Ruiz D.O.; Catina Tejada MD; Sam Aiken MD CBC-COMPLETE BLOOD CNT Collected: 03/20/2018 Status: F Source: [place] NO DIFF 5:40 AM [facility] REPOSITORY TYPE CODE TESTS RESULT OUT OF RANGE REFERENCE UNITS LAB L100.1000 4.4-11.0 K/mm3 Normal WBC 7.1 LAB L100.1200 4.2-5.4 M/mm3 Low RBC 4.10 LAB L100.1300 12.0-15.0 g/dl Normal HGB 12.3 LAB L100.1400 37-47 % Low HCT 36.5 LAB L100.1500 81-99 fL Normal MCV 89.0 LAB L100.1600 27.0-32.0 pg Normal MCH 30.0 LAB L100.1700 32-36 g/gl Normal MCHC 33.7 LAB L100.1810 11.6-14.6 % High RDW CV 14.7 LAB L100.1820 35.1-43.9 fl High RDW SD 47.3 LAB L100.1900 150-450 K/mm3 Normal PLT 176 LAB L100.2000 6.2-12.0 fl High MPV 12.8 Performed By: #### L100.0500 #### [facility] [address] [place], [address] BASIC METABOLIC Collected: 03/20/2018 Status: F Source: [place] PROFILE (BMP) 5:40 AM [facility] REPOSITORY TYPE CODE TESTS RESULT OUT OF RANGE REFERENCE UNITS LAB L501.0100 74-106 mg/dL High GLU 113 Result Comment: Fasting Glucose result from 100 to 125 mg/dL suggests IMPAIRED HOMEOSTASIS per A.D.A. criteria. Please note revised GLUCOSE reference range effective 2017. LAB L501.1000 7-18 mg/dL Normal BUN 17 LAB L501.1100 0.55-1.02 mg/dL Low CREAT,SERUM 0.53 Result Comment: The validity of the calculated GFR AND GFRAA in patients over 70 years has not been determined. Clinical correlation is essential. LAB L501.1110 >60 mL/min Normal EST GFR 124 Result Comment: Non- GFR Calc LAB L501.1115 >60 mL/min Normal EST GFR - AA 150 Result Comment: GFR Calc LAB L501.1255 ml/min Normal Estimated CRCL 88.71 LAB L501.1300 10-20 RATIO High BUN/CRE 32.2 LAB L501.2200 8.5-10 mg/dL Normal .1 CA 10.1 LAB L501.5300 136-14 mmol/L Normal 5 NA 138 LAB L501.5600 3.5-5. mmol/L Normal 1 K 3.8 LAB L501.5900 98-107 mmol/L Normal CL 99 LAB L501.6100 21.0-3 mmol/L Normal 2.0 CO2 30.0 LAB L501.6200 5-15 Normal GAP 9 Performed By: #### L500.2500 #### [facility] [address] [place], [place], [address] CYTOLOGY, BODY FLUID / Collected: 03/19/2018 Status: F Source: [place] CSF 11:30 AM [facility] REPOSITORY TYPE CODE TESTS RESULT OUT OF RANGE REFERENCE UNITS LAB L350.1000 SEE Normal PATHOLOGY CYTOLOGY,BF REPORT /CSF Result Comment: Specimen submitted to Anatomical Pathology Department for testing. Performed By: #### L350.1000 #### [facility] [address] [facility] [place], [place], [address] BODY FLUID CELL Collected: 03/19/2018 Status: C Source: [place] COUNT+DIFF 11:15 AM [facility] REPOSITORY Order Comment: The reference range and other method performance specifications have not been established for this body fluid. The test must be integrated into the clinical context for interpretation. TYPE CODE TESTS RESULT OUT OF RANGE REFERENCE UNITS LAB L200.3380 0.000-0.000 10 3/ul High BFTC# 1.668 Result Comment: This is the Total Number of Nucleated Cell Types in the Body Fluid. LAB L200.3400 10 6/ul Normal RBC/BF 0.94939 LAB L200.3500 10 3/uL Normal 1.635 WBC/BF LAB L200.3510 % Normal 4.7 BF PMN WBC% LAB L200.3515 % Normal 95.3 BF MN WBC% LAB L200.3520 10 3/uL Normal 1.558 BF MN WBC# LAB L200.3525 10 3/uL Normal 0.077 BF PMN WBC# LAB L200.4400 Normal PATH COMM/BF Reviewed Result Comment: Negative for malignant cells. Please also correlate with corresponding cytology specimen [id number]. Dionisio Caceres M.D. 03/20/18 AMENDED REPORT 03/20/18 1018 PATH COMM/BF previously reported as: May follow LAB L200.3600 % PMN 4 Normal LAB L200.3700 % LYMPH 89 Normal LAB L200.3800 % MONO/BF 5 Normal LAB L200.3950 % MACROPHAGES 2 Normal LAB L200.3100 SOURCE/BF THORACENTESIS Normal LAB L200.3200 COLOR/BF RED Normal LAB L200.3300 APPEAR/BF SL CLDY Normal LAB L200.4420 BFM 2ND SEE COMMENT Normal SPEC Performed By: #### L200.0200 #### [facility] [address] [place], [address] PROTEIN, BODY FLUID Collected: 03/19/2018 Status: F Source: [place] 11:15 AM [facility] REPOSITORY Order Comment: Specimen Source: PLUERAL TYPE CODE TESTS RESULT OUT OF RANGE REFERENCE UNITS LAB L503.0300 Not Establ. g/dL Normal 4.3 PROTEIN,BF Performed By: #### L503.0300, L504.0250 #### [facility] [address] [place], [address] LDH,BODY FLUID Collected: 03/19/2018 Status: F Source: [place] 11:15 AM [facility] REPOSITORY Order Comment: Specimen Source: PLUERAL TYPE CODE TESTS RESULT OUT OF RANGE REFERENCE UNITS LAB L504.0250 Not Establ. Units/l Normal LDH,BF 163 Performed By: #### L503.0300, L504.0250 #### [facility] [address] [place], [address] MISCELLANEOUS LAB Collected: 03/19/2018 Status: F Source: [place] PROCEDURE 11:00 AM [facility] REPOSITORY Order Comment: Comments: [id number] Pleural fluid pleural effusion Test(s) Ordered: Flow [id number] TYPE CODE TESTS RESULT OUT OF RANGE REFERENCE UNITS LAB L801.1541 Normal [facility] FLOW SEE PATH TEST Performed By: #### L801.1541 #### [facility] [address] [place], [address] CHEST INSP/EXP 2 VIEW Observed: 03/19/2018 Status: F Source: [place] 10:35 AM [facility] REPOSITORY [facility] Imaging Services [address] [place] [address] Chest Insp/Exp 2 View MR#: [id number] Acct: [id number] Name: CORI CORRIGAN Rep #: [id number] : 1955 F 62 From: Denny Juarez MD PCP: Catina Tejada MD Status: ADM IN Study: Chest Insp/Exp 2 View Date of Exam: 03/19/18 Exam# [id number] Ordering Dr: Denny Juarez MD STUDY: X-RAY CHEST REASON FOR EXAM: Female, 62 years old. The patient is status post left thoracentesis. TECHNIQUE: PA expiration and inspiration views. COMPARISON: Comparison is made with prior study March 17, 2018. FINDINGS: EKG electrodes are seen. A right-sided portacatheter is in situ with the tip at the junction of the superior vena cava right atrium. The patient is status post left thoracentesis. Small residual left pleural effusion with bibasilar atelectasis is seen. RAD/Chest Insp/Exp 2 View IMPRESSION: Status post left thoracentesis. There is no evidence of pneumothorax. Electronically Signed: Denny Juarez MD at 12:43 EST Tel [phone], Service support , CC: Denny Juarez MD; Catina Tejada MD Service Aide: Signed CBC-COMPLETE BLOOD CNT Collected: 03/19/2018 Status: F Source: [place] NO DIFF 6:00 AM [facility] REPOSITORY TYPE CODE TESTS RESULT OUT OF RANGE REFERENCE UNITS LAB L100.1000 4.4-11.0 K/mm3 Normal WBC 8.9 LAB L100.1200 4.2-5.4 M/mm3 Normal RBC 4.58 LAB L100.1300 12.0-15.0 g/dl Normal HGB 13.9 LAB L100.1400 37-47 % Normal HCT 40.8 LAB L100.1500 81-99 fL Normal MCV 89.1 LAB L100.1600 27.0-32.0 pg Normal MCH 30.3 LAB L100.1700 32-36 g/gl Normal MCHC 34.1 LAB L100.1810 11.6-14.6 % High RDW CV 14.9 LAB L100.1820 35.1-43.9 fl High RDW SD 49.1 LAB L100.1900 150-450 K/mm3 Normal PLT 202 LAB L100.2000 6.2-12.0 fl High MPV 12.7 Performed By: #### L100.0500 #### [facility] [address] [place], [address] BASIC METABOLIC Collected: 03/19/2018 Status: F Source: [place] PROFILE (BMP) 6:00 AM [facility] REPOSITORY TYPE CODE TESTS RESULT OUT OF RANGE REFERENCE UNITS LAB L501.0100 74-106 mg/dL Normal GLU 84 Result Comment: Please note revised GLUCOSE reference range effective 2017. LAB L501.1000 7-18 mg/dL Normal BUN 15 LAB L501.1100 0.55-1.02 mg/dL Normal CREAT,SERUM 0.61 Result Comment: The validity of the calculated GFR AND GFRAA in patients over 70 years has not been determined. Clinical correlation is essential. LAB L501.1110 >60 mL/min Normal EST GFR 106 Result Comment: Non- GFR Calc LAB L501.1115 >60 mL/min Normal EST GFR - AA 128 Result Comment: GFR Calc LAB L501.1255 ml/min Normal Estimated CRCL 77.07 LAB L501.1300 10-20 RATIO High BUN/CRE 24.8 LAB L501.2200 8.5-10 mg/dL High .1 CA 10.5 LAB L501.5300 136-14 mmol/L Low 5 NA 134 LAB L501.5600 3.5-5. mmol/L Normal 1 K 3.6 LAB L501.5900 98-107 mmol/L Normal CL 99 LAB L501.6100 21.0-3 mmol/L Normal 2.0 CO2 29.0 LAB L501.6200 5-15 Normal GAP 6 Performed By: #### L500.2500, L501.5200 #### [facility] [address] [place], [place], [address] MAGNESIUM Collected: 03/19/2018 Status: F Source: [place] 6:00 AM [facility] REPOSITORY TYPE CODE TESTS RESULT OUT OF RANGE REFERENCE UNITS LAB L501.5200 1.6-2.6 mg/dL Normal MG 2.1 Performed By: #### L500.2500, L501.5200 #### [facility] [address] [place], [place], [address] Observed: 03/19/2018 Status: F Source: [place] CULTURE, BODY FLUID 12:00 AM [facility] REPOSITORY Gram Stain Centrifuged Specimen? Culture performed on centrifuged specimen Gram Stain Rare Red Blood Cells Rare White Blood Cells No organisms seen Body Fluid Cult Culture exhibits no growth. Cult, Anaerobic No anaerobic bacteria isolated. Performed By: #### M100.1300 #### [facility] [address] [place], [address] FLUID/WASHING Observed: 03/19/2018 Status: F Source: [place] 12:00 AM [facility] REPOSITORY Patient: CORI CORRIGAN : 1955 (62/F) Acct Num: [id number] Phys: Elmer Vuong MD Unit Num: [id number] Loc: [facility] [id number] Specimen: [id number] Received: 03/19/18 3844 Spec Type: Fluid TISSUES 1 TISSUES: THORACIC FLUID COMMENT Polymorphous lymphocytes with reactive mesothelial cells are present. Immunohistochemistry ([id number]) supports the above diagnosis. CYTOLOGY GROSS Received is 60 ml of cloudy red fluid labeled with the patient's name and and designated per the requisition as thoracentesis. Submitted for cytology preparation including cell block. / 03/19/18 TC:5 CPT: 44743, 60948 CYTOLOGY STUDY Slides are reviewed. DIAGNOSIS CYTOLOGY Thoracentesis fluid for cytology (cytospin and cell block): Negative for malignant cells. AM:reno 03/20/18 HEADER OPERATION: Ultrasound-guided left thoracentesis PRE-OP DIAGNOSIS: Pleural effusion TISSUE SUBMITTED: Thoracentesis fluid for cytology Signed Anam Soliz 03/20/18 <signature on file> Performed By: #### PFLU #### [facility] [address] [place], [address] IMMUNOHISTOCHEMISTRY Observed: 03/19/2018 Status: F Source: [place] 12:00 AM [facility] REPOSITORY Patient: CORI CORRIGAN : 1955 (62/F) Acct Num: [id number] Phys: Elmer Vuong MD Unit Num: [id number] Loc: U [id number] Specimen: [id number] Received: 03/20/18 - 0488 Spec Type: IMMUNO THIS IS A CORRECTED REPORT TISSUES 1 TISSUES: THORACIC FLUID SPECIMEN INFORMATION: Tissue Source: Thoracentesis fluid Clinical Info: Pleural effusion Specimen Number: [id number] CPT code: 23308, 06607 x9 METHODOLOGY: Deparaffinized sections of prefer/formalin-fixed tissue or PAP/DQ stained slides are incubated with monoclonal/polyclonal antibodies/oligonucleotide probes. Localization is made via biotin free immunoperoxidase method. Appropriate controls are performed and reacted as expected. Results on target cell population are indicated in the following table: RESULTS: ANTIBODY / CLONE RESULT CD3 (PS1) positive CD5 (SP10) positive CD20 (L26) positive, occasional CD45 (RP2/18) positive CD79a (11E3) positive CD138 (B-A38) negative CD10 (56C6) positive, rare BCL-2 (bcl-2/100/D5) positive, rare BCL-6 (QY419M/A8) negative MUM1 (MRQ-43) negative These tests were developed and their performance characteristics determined by [facility]. They may not have been cleared or approved by the U.S. Food and Drug Administration. The FDA has determined that such clearance or approval is not necessary. INTERPRETATION: Thoracentesis fluid: Polytypic lymphoid cells. AM:reno 03/21/18 AM:reno 03/26/18 PHYSICIAN AND INSTITUTION [address] [address] Signed Anam Heydi 03/26/18 <signature on file> Performed By: #### PIMM #### [facility] [address] [place] [address]. [place], [address] ECHOCARDIOGRAM, LIMITED Observed: 03/18/2018 Status: F Source: [place] STUDY 5:43 PM [facility] REPOSITORY [facility] Cardiovascular Services [address] [place], [place] [address], [place] [address] Echo, Limited Study 03/18/18 0924 MR#: [id number] Acct: [id number] Name: CORI CORRIGAN Rep #: [id number] : 1955 62 From: Matias Tapia MD Attending Dr: Elmer Vuong MD Status: ADM IN Ordering Dr: Matias Tapia MD Date: 03/18/18 Location: [facility] Sex: F C Admitted: 03/17/18 Reason For Study: S/P MD Procedure This was a limited 2D transthoracic echocardiogram. Myocardial strain analysis was performed in this exam to aid in the assessment of cardiac function. Exam performed portable in patient room. Left Ventricle Normal LV size. The estimated ejection fraction is 50 %. The global longitudinal strain = -13.7% (abnormal). There is mild global hypokinesis of the left ventricle. Right Ventricle Normal RV size. Normal systolic function. Atria Normal left atrium. Normal right atrium. Mitral Valve Normal mitral valve. Tricuspid Valve Normal tricuspid valve. Aortic Valve Trisinus/trileaflet aortic valve. Great Vessels Normal aortic root. The pulmonary artery is normal size. Normal inferior vena cava. Pericardium/Pleural Small pericardial effusion. Large left pleural effusion. MMode/2D Measurements AND Calculations LVAd ap4: 27.0 cm2 SV(MOD-sp4): 38.8 ml SV(sp4-el): 39.2 ml EDV(MOD-sp4): 89.5 ml EDV(sp4-el): 91.7 ml LVAs ap4: 19.0 cm2 ESV(MOD-sp4): 50.7 ml ESV(sp4-el): 52.5 ml EF(MOD-sp4): 43.3 % EF(sp4-el): 42.7 % Interpretation Summary Normal LV size. The estimated ejection fraction is 50 %. The global longitudinal strain = -13.7% (abnormal). Small pericardial effusion. Large left pleural effusion. Ordering Physician: Matias Tapia Referring Physician: CATINA TEJADA Performed By: Maribel Sarkar RDCS 03/18/181742 Date Matias Tapia MD CC: Matias Tapia MD; Elmer Vuong MD; Catina Tejada MD; Apolonia Moe MD Date Dictated: 03/18/18923 Date Transcribed: 03/18/181742 Service Aide: Signed PROTHROMBIN TIME W/INR Collected: 03/18/2018 Status: F Source: [place] 8:40 AM [facility] REPOSITORY Order Comment: REDRAW. PREVIOUS SPECIMEN REJECTED DUE TO HEMOLYSIS. 03/18/18825 [employer]. TYPE CODE TESTS RESULT OUT OF RANGE REFERENCE UNITS LAB L300.4150 11.7-14.9 SECONDS Normal PROTIME 13.2 LAB L300.4200 Normal INR 1.0 Performed By: #### L300.3900, L300.4310 #### [facility] [address] [facility] [place], [place], [address] PARTIAL THROMBOPLAST Collected: 03/18/2018 Status: F Source: [place] TIME 8:40 AM [facility] REPOSITORY Order Comment: REDRAW. PREVIOUS SPECIMEN REJECTED DUE TO HEMOLYSIS. 03/18/18825 Crocodile Goldger. TYPE CODE TESTS RESULT OUT OF REFERENCE UNITS RANGE LAB L300.4310 24.1-36.2 Seconds High PTT 36.9 Performed By: #### L300.3900, L300.4310 #### [facility] [address] [facility] [place], [place], [address] CONSULTATION Observed: 03/18/2018 Status: F Source: [place] 8:15 AM [facility] REPOSITORY [facility] Medical Records Department [address] [place] [address] Consultation 03/18/18 0805 MR#: [id number] Acct: [id number] Name: CORI CORRIGAN Rep #: [id number] : 1955 62 From: Matias Tapia MD PCP: Catina Tejada MD Status: ADM IN Y Location: [place] [address] Reason for Consult Date of Consultation: 03/18/18 History of Present Illness: The patient is a 62 year old F with a past medical history of recently diagnosed follicular lymphoma and hypertension. She was admitted through the ED on 04-01 with a complaint of worsening shortness of breath for the past 2 weeks. She had associated orthopnea and exertional dyspnea. Symptoms worsen and so she decided to come to the ED. She was recently diagnosed with follicular lymphoma in January and had recently had a port put and was due to start chemotherapy next Saturday. She had an echocardiogram performed recently which demonstrated preserved ejection fraction of 65% and normal myocardial strain pattern. She denied any fever or chills, any cough or chest pain, any palpitations, any lightheadedness or dizziness, any abdominal pain, any diarrhea vomiting. Review of systems otherwise negative. In the ED, vitals showed respiratory rate of 20 she was saturating at 96% on 2 L of oxygen. Labs showed sodium of 135 and troponin of 3.44. EKG showed sinus rhythm with no acute ST changes. Chest x-ray showed a large left pleural effusion. CT angiogram showed moderate to large left pleural effusion and moderate right pleural effusion, with no change from prior study, moderate to market by mediastinal and axillary adenopathy and no evidence of pulmonary embolus or aortic dissection. She is been admitted to be managed for NST KAYLA and bilateral pleural effusions. 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 - *Family History Maternal Family History: Family History (Last Reviewed 03/13/18 @ 14:52 by Taty Veliz) Father Diabetes Arthritis Heart disease Kidney disease Stomach ulcer Hypertension Sister Diabetes Arthritis Heart disease Hypertension Thyroid disorder Mother Breast cancer Cancer Brother Diabetes Kidney disease Hypertension Lymphoma History Items: Cancer, Heart Disease Paternal Family History: Family History (Last Reviewed 03/13/18 @ 14:52 by Taty Veliz) Father Diabetes Arthritis Heart disease Kidney disease Stomach ulcer Hypertension Sister Diabetes Arthritis Heart disease Hypertension Thyroid disorder Mother Breast cancer Cancer Brother Diabetes Kidney disease Hypertension Lymphoma History Items: High Cholesterol, Heart Disease, Hypertension Sibling Family History: Family History (Last Reviewed 03/13/18 @ 14:52 by Taty Veliz) Father Diabetes Arthritis Heart disease Kidney disease Stomach ulcer Hypertension Sister Diabetes Arthritis Heart disease Hypertension Thyroid disorder Mother Breast cancer Cancer Brother Diabetes Kidney disease Hypertension Lymphoma History Items: Cancer Smoking Status: Former smoker Tobacco Use: Cigarettes Alcohol: None Drugs: None Subjectve: Patient seen and evaluated. Appears to be doing much better this morning Objective: Vital Signs Temp Pulse Resp BP Pulse Ox 98.6 F 82 20 H 119/74 93 03/18/18 03:00 03/18/18 06:59 03/18/18 03:00 03/18/18 03:00 03/18/18 07:50 Oxygen Flow Rate (L/min) 2 Oxygen Delivery Method Nasal Cannula Weight: 179 lb 10.828 oz Body Mass Index (BMI) 31.8 General: Ill Appearing HEENT: PERRL, EOMI, Sclera Non Icteric Oral: Moist Mucosa Neck: Supple, Good ROM, No Lymph Node Enlargement Lungs: Diminished Efra Bases, Dullness to Percussion-Left Cardiovascular: Regular Rhythm, Normal S1, Normal S2, No Murmurs, No Rubs, No Gallops Vascular: No Carotid Bruits, Normal Femoral Pulses, Normal Radial Pulses, Normal Dorsalis Pedal Pulse, Normal Posterior Tibial Pulses Abdomen: Bowel Sounds Present, Soft, Non Tender, No HSM, No Organomegaly Extremities: No Cyanosis, No Clubbing, No edema Musculoskeletal: No Erythema Skin: No Rashes Lymphatic: No Lymph Node Enlargement Neurological: No Focal Motor or Sensory Deficit Psych/Mental Status: Appropriate 03/17/18 16:57: WBC 9.2, RBC 4.64, Hgb 13.7, Hct 41.6, MCV 89.7, MCH 29.5, MCHC 32.9, RDW 15.1 H, RDW Differential 48.6 H, Plt Count 210, MPV 12.6 H, Immature Gran % (Auto) 0.200, Neut % (Auto) 77.0 H, Lymph % (Auto) 10.1 L, Powell % (Auto) 12.4 H, Eos % (Auto) 0.1, Baso % (Auto) 0.2, Absolute Neuts (auto) 7.1, Total Counted Not Reportable 03/17/18 16:57: Sodium 135 L, Potassium 3.9, Chloride 99, Carbon Dioxide 28.0, Anion Gap 8, BUN 13, Creatinine 0.59, Est GFR (MDRD) Af Amer 131, Est GFR (MDRD) Non-Af 109, BUN/Creatinine Ratio 22.0 H, Glucose 95, Calcium 9.9, Total Bilirubin 0.50, Direct Bilirubin 0.19, Troponin I 3.440 H* 03/17/18 20:52: Troponin I 3.110 H* 03/17/18 23:15: Troponin I 2.810 H* 03/18/18 06:00: WBC 7.0, RBC 4.46, Hgb 13.3, Hct 39.5, MCV 88.6, MCH 29.8, MCHC 33.7, RDW 14.9 H, RDW Differential 47.9 H, Plt Count 203, MPV 13.1 H, Immature Gran % (Auto) 0.100, Neut % (Auto) 69.5, Lymph % (Auto) 14.9 L, Powell % (Auto) 15.3 H, Eos % (Auto) 0.1, Baso % (Auto) 0.1, Absolute Neuts (auto) 4.9, Total Counted Not Reportable 03/18/18 06:00: Sodium 137, Potassium 4.0, Chloride 100, Carbon Dioxide 26.0, Anion Gap 11, BUN 13, Creatinine 0.57, Est GFR (MDRD) Af Amer 138, Est GFR (MDRD) Non-Af 114, BUN/Creatinine Ratio 23.0 H, Glucose 91, Calcium 10.1 Rhythm: EKG: Normal sinus rhythm with no acute changes Assessment/Plan 1. Non-ST elevation myocardial infarction * It is unclear whether the above is secondary to plaque rupture or whether this is abnormal cardiac enzymes secondary to the tumor burden encroaching the pericardium or myocardium. * At this time with the extensive tumor burden would recommend medical and noninvasive management * Continue with aspirin * Start statin * Low-dose beta-alia * Will not start clopidogrel * Limited echocardiogram to reassess left ventricular function and guide therapy as it appears that the patient will be starting chemotherapy in the next few days. * * Discussed with launch engineer * * Thank you for allowing me to participate in the care of your patient. Please don't hesitate to call if any issues arise 03/18/18 0815 <Electronically signed by Matias Tapia MD> Date Matias Tapia MD Cosigner Signature (if applicable): Date CC: Matias Tapia MD; Alfred Ruiz D.O.; Catina Tejada MD; Apolonia Moe MD Signed CONSULTATION Observed: 03/18/2018 Status: F Source: [place] 8:00 AM [facility] Medical Records Department [address] [place] [address] Consultation 03/18/18 0658 MR#: [id number] Acct: [id number] Name: CORI CORRIGAN Rep #: [id number] : 1955 62 From: Alfred Ruiz DO PCP: Catina Tejada MD Status: ADM IN Location: [place] [id number] Reason for Consult Date of Consultation: 03/18/18 Reason for Consultation: Pleural effusions History of Present Illness: The patient is a 62-year-old female, with a history as outlined below, who presented to the emergency department on March 17 with complaints of progressively worsening exertional shortness of breath over 2 weeks. The patient currently follows with Dr. Aiken of oncology, due to a recent diagnosis of follicular lymphoma. On March 14, the patient underwent a right IJ power port placement to facilitate treatment with systemic chemotherapy. Surface echocardiogram dated March 07 revealed normal LV size and function with an ejection fraction of 60%. Pulmonary artery systolic pressure was estimated to be 33 mmHg. Recent lower extremity Doppler study completed on March 04 was negative for the presence of DVTs. The patient also has known bilateral pleural effusions dating back to CT chest dated February 14. The patient has never undergone a diagnostic or therapeutic thoracentesis previously. She denies the presence of a cough, fevers or chills. The patient was initially scheduled to be started on chemotherapy this week. On presentation to the emergency department, the patient was noted to be afebrile and hemodynamically stable. Laboratory evaluation revealed no evidence of a leukocytosis. Chemistry profile was largely unremarkable. Troponin, however, was increased to 3.4. A CTA chest was obtained which revealed no evidence for pulmonary embolism. There was again evidence of moderate to large bilateral pleural effusions, unchanged from the patient's previous study along with marked mediastinal and axillary adenopathy. For reasons that are not clear to me, the patient was started on treatment strength Lovenox, despite the fact that her CTA was negative for PE. She was subsequently admitted to the progressive care unit for further workup of her shortness of breath and newly diagnosed non-ST segment elevation MD. Past Medical History Medical History: Medical History (Last Reviewed 03/13/18 @ 14:52 by Taty Veliz) Constipation K59.00 Lymphadenopathy R59.1 Allergies No Known Allergies Allergy (Verified 03/17/18 14:57) Home Medications: Ambulatory Orders Medication Instructions Recorded aspirin 81 mg tablet,delayed 81 mg PO DAILY 02/10/18 release omega-3 fatty acids 1,000 mg 1,000 mg PO DAILY 02/10/18 Surgical History: Surgical History (Last Reviewed 03/13/18 @ 14:52 by Taty Veliz) Hx of lymph node biopsy Onset Date: 02/2018 Z98.890 No history of previous surgery Psychiatric History: No pertinent psych hx 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 Smoking Status: Former smoker Tobacco Use: Cigarettes - *Family History Maternal Family History: Family History (Last Reviewed 03/13/18 @ 14:52 by Taty Veliz) Father Diabetes Arthritis Heart disease Kidney disease Stomach ulcer Hypertension Sister Diabetes Arthritis Heart disease Hypertension Thyroid disorder Mother Breast cancer Cancer Brother Diabetes Kidney disease Hypertension Lymphoma History Items: Cancer, Heart Disease Paternal Family History: Family History (Last Reviewed 03/13/18 @ 14:52 by Taty Veliz) Father Diabetes Arthritis Heart disease Kidney disease Stomach ulcer Hypertension Sister Diabetes Arthritis Heart disease Hypertension Thyroid disorder Mother Breast cancer Cancer Brother Diabetes Kidney disease Hypertension Lymphoma History Items: High Cholesterol, Heart Disease, Hypertension Sibling Family History: Family History (Last Reviewed 03/13/18 @ 14:52 by Taty Veliz) Father Diabetes Arthritis Heart disease Kidney disease Stomach ulcer Hypertension Sister Diabetes Arthritis Heart disease Hypertension Thyroid disorder Mother Breast cancer Cancer Brother Diabetes Kidney disease Hypertension Lymphoma History Items: Cancer Review of Systems Constitutional: Denies: Chills, Fever, Weight Change Eyes: Denies: Blurred vision, Double vision HEENT: Denies: Head Aches, Sinus Congestion, Sinus Drainage Cardiovascular: Denies: Chest Pain, Palpitations Respiratory: Reports: Shortness of Breath. Denies: Cough, Sputum production Gastrointestinal: Denies: Abdominal Pain, Nausea, Vomiting Genitourinary: Denies: Dysuria Musculoskeletal: Denies: Joint Pain, Joint Tenderness Skin: Denies: Rash, Wounds Neurological: Denies: Numbness, Tingling, Focal weakness Psychiatric: Denies: Anxiety, Depression, Homicidal Ideations, Suicidal Ideations Hematologic/ Lymphatic: Reports: Adenopathy Objective: The patient's most recent lab work, culture data and imaging studies have all been personally reviewed. - Physical Exam General: Alert, Oriented x3, Cooperative, No apparent distress HEENT: Atraumatic, PERRLA, Normocephalic Oral: No Gingival or Mucosal Lesions/ Ulcerations Neck: Supple, No Nodes, Trachea Midline Lungs: - - There is significantly diminished air movement throughout the entire left hemithorax with preserved aeration of the right mid and upper lung pritchard. There is dullness to percussion of the bases bilaterally. Cardiovascular: Regular rate, Regular Rhythm, Normal S1, Normal S2, No murmurs Abdomen: Bowel Sounds Present, Soft, Non Tender Extremities: No clubbing, No cyanosis, No edema Skin: No breakdown Musculoskeletal: No Tenderness to Palpation of Joints or Extremities Neurological: Cranial nerves II-XII grossly intact, Neuro grossly intact Psych/Mental Status: Alert and oriented to time, place, person, mood and affect Vital Signs Temp Pulse Resp BP Pulse Ox 37.0 C 85 20 H 119/74 93 03/18/18 03:00 03/18/18 03:00 03/18/18 03:00 03/18/18 03:00 03/18/18 03:00 Oxygen Flow Rate (L/min) 2 Oxygen Delivery Method Nasal Cannula Weight: 179 lb 10.828 oz Body Mass Index (BMI) 31.8 Laboratory Tests Past 24 Hrs WBC 9.2 RBC 4.64 Hgb 13.7 Hct 41.6 MCV 89.7 MCH 29.5 MCHC 32.9 RDW 15.1 H RDW Differential 48.6 H WBC Pending RBC Pending Hgb Pending Hct Pending MCV Pending Clinical Impression(s) from Imaging Studies Chest X-Ray 03/17/18 15:46 IMPRESSION: Large left pleural effusion, otherwise unremarkable. Electronically Signed: Mariama Saha MD at 16:32 EST Tel , Service support , Chest CTA 03/17/18 17:49 IMPRESSION: 1. No evidence of pulmonary embolus or aortic dissection. 2. Moderate to large bilateral pleural effusions. No change from the prior study. 3. Moderate to marked mediastinal and axillary adenopathy. No change from prior. Electronically Signed: Mariama Saha MD at 19:07 EST Tel , Service support , Assessment/Plan All Active Problems (Last Reviewed 03/13/18 @ 14:52 by Taty Veliz) Follicular lymphoma grade III (Acute) RECOMMENDATIONS: 1. Discontinue treatment strength Lovenox, as the patient was not noted to have a PE. 2. Hold all anticoagulation at this time, pending thoracentesis. Once completed, prophylactic dose Lovenox can be resumed. 3. Obtain stat coags. 4. Obtain ultrasound-guided thoracentesis. I have already discussed this case with radiology. 5. Send pleural fluid for cytology and flow cytometry. 6. Wean supplemental oxygen as tolerated to maintain a saturation of 90% or greater. Encourage incentive spirometer use. IMPRESSIONS: 1. Acute hypoxic respiratory insufficiency secondary to bilateral pleural effusions The etiology for the patient's pleural effusions are most likely malignant in nature and related to her newly diagnosed follicular lymphoma. She has never undergone a thoracentesis previously. Therefore, would recommend proceeding with a left-sided ultrasound-guided thoracentesis, which will be both therapeutic and diagnostic in nature. Send pleural fluid for cytology and flow cytometry. My hope is that with drainage of the left hemithorax, coupled with aggressive incentive spirometer use, the patient's shortness of breath and subsequent oxygenation will improve. Orders for ultrasound-guided thoracentesis and pleural fluid analysis have been placed. 2. Newly diagnosed follicular lymphoma Plans to initiate systemic chemotherapy soon as the patient has been stabilized from a medical perspective. 3. Troponin elevation Potential demand ischemia, as the patient's recent echocardiogram was unrevealing. Cardiology is currently following. Will defer management accordingly. This note was generated with SI2 - [employer] dictation software. It may contain incorrect words, spelling, and punctuation that were not noted in checking the note before signing. UPDATE: Nursing staff made me aware that radiology is unable to perform the patient's thoracentesis this morning, as her Lovenox was not discontinued upon her admission to the hospital, and she was given a dose early this morning. Therefore, she will have to wait likely until tomorrow to have the procedure done. Code Visit Inpatient E AND M: 36575 Init Hosp L3 03/18/18 0800 <Electronically signed by Alfred Ruiz DO> Date Alfred Ruiz DO Cosigner Signature (if applicable): Date CC: Matias Tapia MD; Alfred Ruiz D.O.; Catina Tejada MD; Apolonia Moe MD Signed THORACENTESIS W US Observed: 03/18/2018 Status: F Source: [place] 7:10 AM [facility] Imaging Services [facility] [place] [address] Thoracentesis W MR#: [id number] Acct: [id number] Name: CORI CORRIGAN J Rep #: [id number] : 1955 F 62 From: Denny Juarez MD PCP: Catina Tejada MD Status: ADM IN Study: Thoracentesis W US Date of Exam: 03/19/18 Exam# [id number] Ordering Dr: Alfred Ruiz DO PROCEDURE: ULTRASOUND GUIDED THORACENTESIS. DATE: March 19, 2018.. INDICATION: Female, 62 years old. Left pleural effusion. PHYSICIAN: Denny Juarez M.D. PROCEDURE: The risks, benefits, and alternatives to the procedure were explained to the patient. The specific risks of bleeding, infection, and pneumothorax requiring chest tube insertion were discussed and accepted. Written informed consent was obtained. Ultrasonographic evaluation of the left lower pleural space was carried out. An adequate pocket was identified. The patient was placed in the sitting, upright position. The overlying skin was prepped and draped in sterile fashion. 1% lidocaine was administered subcutaneously for local anesthesia. Under ultrasound guidance, a 5 Czech thoracentesis needle/catheter system was advanced into the left posterior lower pleural fluid collection. Approximately 1770 mL of blood-tinged fluid was drained. The catheter was removed, and a sterile dressing was applied. A specimen was collected and sent to the laboratory for analysis, as requested by the referring clinician. The patient tolerated the procedure well. A chest x-ray was ordered. US/Thoracentesis W US IMPRESSION: Ultrasound-guided left thoracentesis. Electronically Signed: Denny Juarez MD at 13:07 EST Tel [phone], Service support , CC: Alfred Ruiz D.O.; Catina Tejada MD Service Aide: Signed BASIC METABOLIC Collected: 03/18/2018 Status: F Source: [place] PROFILE (BMP) 6:00 AM [facility] REPOSITORY TYPE CODE TESTS RESULT OUT OF RANGE REFERENCE UNITS LAB L501.0100 74-106 mg/dL Normal GLU 91 Result Comment: Please note revised GLUCOSE reference range effective 2017. LAB L501.1000 7-18 mg/dL Normal BUN 13 LAB L501.1100 0.55-1.02 mg/dL Normal CREAT,SERUM 0.57 Result Comment: The validity of the calculated GFR AND GFRAA in patients over 70 years has not been determined. Clinical correlation is essential. LAB L501.1110 >60 mL/min Normal EST GFR 114 Result Comment: Non- GFR Calc LAB L501.1115 >60 mL/min Normal EST GFR - AA 138 Result Comment: GFR Calc LAB L501.1255 ml/min Normal Estimated CRCL 82.48 LAB L501.1300 10-20 RATIO High BUN/CRE 23.0 LAB L501.2200 8.5-10 mg/dL Normal .1 CA 10.1 LAB L501.5300 136-14 mmol/L Normal 5 NA 137 LAB L501.5600 3.5-5. mmol/L Normal 1 K 4.0 LAB L501.5900 98-107 mmol/L Normal CL 100 LAB L501.6100 21.0-3 mmol/L Normal 2.0 CO2 26.0 LAB L501.6200 5-15 Normal GAP 11 Performed By: #### L500.2500 #### [facility] [place], [place], [address] CBC W/DIFF, AUTOMATED Collected: 03/18/2018 Status: F Source: [place] 6:00 AM [facility] REPOSITORY TYPE CODE TESTS RESULT OUT OF RANGE REFERENCE UNITS LAB L100.1000 4.4-11.0 K/mm3 Normal WBC 7.0 LAB L100.1200 4.2-5.4 M/mm3 Normal RBC 4.46 LAB L100.1300 12.0-15.0 g/dl Normal HGB 13.3 LAB L100.1400 37-47 % Normal HCT 39.5 LAB L100.1500 81-99 fL Normal MCV 88.6 LAB L100.1600 27.0-32.0 pg Normal MCH 29.8 LAB L100.1700 32-36 g/gl Normal MCHC 33.7 LAB L100.1810 11.6-14.6 % High RDW CV 14.9 LAB L100.1820 35.1-43.9 fl High RDW SD 47.9 LAB L100.1900 150-450 K/mm3 Normal PLT 203 LAB L100.2000 6.2-12.0 fl High MPV 13.1 LAB L100.2100 47-70 % Normal NEUT% 69.5 LAB L100.2200 19-41 % Low LY% 14.9 LAB L100.2300 0-10 % High MONO% 15.3 LAB L100.2400 0-5 % Normal EO% 0.1 LAB L100.2500 0-1 % Normal BASO% 0.1 LAB L100.2550 0.0-0.9 % Normal IM GRAN % 0.100 Result Comment: IG% - Immature Granulocytes (promyelocytes, myelocytes and metamyelocytes) > 1% indicates that a LEFT SHIFT is Present. LAB L100.2620 2.0-7.7 X10 3/uL Normal Absolute Neut 4.9 LAB L100.2720 0.83-4.51 X10 3/ul Normal Absolute Lymph 1.04 Performed By: #### L100.0100 #### [facility] [address] [place], [place], [address] PROTEIN, TOTAL Collected: 03/18/2018 Status: F Source: [place] 6:00 [facility] REPOSITORY Order Comment: Serial Specimen #1, #2 or #3? 1 TYPE CODE TESTS RESULT OUT OF RANGE REFERENCE UNITS LAB L501.1500 6.4-8.2 g/dL Normal T PROT 6.7 LAB L501.1950 2.2-4.2 g/dL Normal GLOB 3.2 LAB L501.2000 0.9-2.4 RATIO Normal A/G 1.1 Performed By: #### L001.0705, L504.2610 #### [facility] [address] [place], [place], [address] LDH Collected: 03/18/2018 Status: F Source: [place] 6:00 AM [facility] REPOSITORY Order Comment: Serial Specimen #1, #2 or #3? 1 TYPE CODE TESTS RESULT OUT OF RANGE REFERENCE UNITS LAB L504.2610 84-246 U/L High LDH 324 Performed By: #### L001.0705, L504.2610 #### [facility] [address] [place], [address] BNP,B-TYPE NATRIURETIC Collected: 03/18/2018 Status: F Source: [place] PEPTIDE 6:00 AM [facility] REPOSITORY Order Comment: SPOKE WITH CHRISTINE GERMAIN TO SEE IF OKAY TO ADD TO BLOOD IN LAB SHE WILL CALL BACK AND LET US KNOW. TYPE CODE TESTS RESULT OUT OF RANGE REFERENCE UNITS LAB L503.6620 0-100 pg/mL High B-TYPE 480.2 RAJAN PEP Performed By: #### L503.6620 #### [facility] [address] [place], [address] TROPONIN-I Collected: 03/17/2018 Status: F Source: [place] 11:15 PM [facility] REPOSITORY Order Comment: 'TROP' Serial specimen #1, #2 or #3: 2 TYPE CODE TESTS RESULT OUT OF RANGE REFERENCE UNITS LAB L501.4010 <0.045 ng/mL High alert 2.810 TROPONIN-I Result Comment: Critical Result(s) Called at: 23:48:34 03/17/2018 by: MIKO ACUÑA to Richardson Brito TROPONIN-I EXPECTED VALUES <0.045 Negative 0.045 - 0.590 Consistent with Cardiac Damage > OR = 0.600 Critical Value Not every elevated troponin is indicative of MD. These values should be used with clinical judgement in examining the patient's clinical picture for diagnosis. To establish a diagnosis of MD versus myocardial injury, there must be a demonstrated rise and/or fall in the troponin values, in addition to ischemic symptoms, EKG changes, new regional wall motion abnormality, and/or angiographical evidence. PLEASE NOTE: REFERENCE RANGES EDITED 17 Performed By: #### L501.4010 #### [facility] [address] [place], [address] TROPONIN-I Collected: 03/17/2018 Status: C Source: [place] 8:52 PM [facility] REPOSITORY TYPE CODE TESTS RESULT OUT OF RANGE REFERENCE UNITS LAB L501.4010 <0.045 ng/mL High alert 3.110 TROPONIN-I Result Comment: RESULTS CALLED TO [facility] 12/06/30 [address] REPORT READ BACK BY SAME . TROPONIN-I EXPECTED VALUES <0.045 Negative 0.045 - 0.590 Consistent with Cardiac Damage > OR = 0.600 Critical Value Not every elevated troponin is indicative of MD. These values should be used with clinical judgement in examining the patient's clinical picture for diagnosis. To establish a diagnosis of MD versus myocardial injury, there must be a demonstrated rise and/or fall in the troponin values, in addition to ischemic symptoms, EKG changes, new regional wall motion abnormality, and/or angiographical evidence. PLEASE NOTE: REFERENCE RANGES EDITED 17 TROPONIN-I EXPECTED VALUES <0.045 Negative 0.045 - 0.590 Consistent with Cardiac Damage > OR = 0.600 Critical Value Not every elevated troponin is indicative of MD. These values should be used with clinical judgement in examining the patient's clinical picture for diagnosis. To establish a diagnosis of MD versus myocardial injury, there must be a demonstrated rise and/or fall in the troponin values, in addition to ischemic symptoms, EKG changes, new regional wall motion abnormality, and/or angiographical evidence. PLEASE NOTE: REFERENCE RANGES EDITED 17 Performed By: #### L501.4010 #### [facility] [address] [facility] [place], [address] HISTORY AND PHYSICAL Observed: 03/17/2018 Status: F Source: [place] EXAM 8:24 PM [facility] Medical Records Department [address] [place] [address] History and Physical 03/17/181952 MR#: [id number] Acct: [id number] Name: CORI CORRIGAN Rep #: [id number] : 1955 62 From: Apolonia Moe MD PCP: Catina Tejada MD Status: ADM IN Y Location: [place] [address] History of Present Illness Date of Admission: 03/17/18 Chief Complaint: shortness of breath The patient is a 62 year old F past medical history of recently diagnosed follicular lymphoma and hypertension. She was admitted through the ED on 04-01 with a complaint of worsening shortness of breath for the past 2 weeks. She had associated orthopnea and exertional dyspnea. Symptoms worsen and so she decided to come to the ED. She was recently diagnosed with follicular lymphoma in January and had recently had a port put and was due to start chemotherapy next Saturday. She denied any fever or chills, any cough or chest pain, any palpitations, any lightheadedness or dizziness, any abdominal pain, any diarrhea vomiting. Review of systems otherwise negative. In the ED, vitals showed respiratory rate of 20 she was saturating at 96% on 2 L of oxygen. Labs showed sodium of 135 and troponin of 3.44. EKG showed no acute ST changes. Chest x-ray showed a large left pleural effusion. CT angiogram showed moderate to large left pleural effusion and moderate right pleural effusion, with no change from prior study, moderate to market by mediastinal and axillary adenopathy and no evidence of pulmonary embolus or aortic dissection. She is been admitted to be managed for NST KAYLA and bilateral pleural effusions. [] Past Medical History Medical History: Medical History (Last Reviewed 03/13/18 @ 14:52 by Taty Veliz) Constipation K59.00 Lymphadenopathy R59.1 Allergies No Known Allergies Allergy (Verified 03/17/18 14:57) Home Medications: Ambulatory Orders Medication Instructions Recorded aspirin 81 mg tablet,delayed 81 mg PO DAILY 02/10/18 release omega-3 fatty acids 1,000 mg 1,000 mg PO DAILY 02/10/18 capsule Surgical History: Surgical History (Last Reviewed 03/13/18 @ 14:52 by Taty Veliz) Hx of lymph node biopsy Onset Date: 02/2018 Z98.890 No history of previous surgery Psychiatric History: No pertinent psych hx 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 Smoking Status: Former smoker - *Family History Maternal Family History: Family History (Last Reviewed 03/13/18 @ 14:52 by Taty Veliz) Father Diabetes Arthritis Heart disease Kidney disease Stomach ulcer Hypertension Sister Diabetes Arthritis Heart disease Hypertension Thyroid disorder Mother Breast cancer Cancer Brother Diabetes Kidney disease Hypertension Lymphoma History Items: Cancer, Heart Disease Paternal Family History: Family History (Last Reviewed 03/13/18 @ 14:52 by Taty Veliz) Father Diabetes Arthritis Heart disease Kidney disease Stomach ulcer Hypertension Sister Diabetes Arthritis Heart disease Hypertension Thyroid disorder Mother Breast cancer Cancer Brother Diabetes Kidney disease Hypertension Lymphoma History Items: High Cholesterol, Heart Disease, Hypertension Sibling Family History: Family History (Last Reviewed 11/29/18 @ 14:52 by Taty Veliz) Father Diabetes Arthritis Heart disease Kidney disease Stomach ulcer Hypertension Sister Diabetes Arthritis Heart disease Hypertension Thyroid disorder Mother Breast cancer Cancer Brother Diabetes Kidney disease Hypertension Lymphoma History Items: Cancer Review of Systems Constitutional: Denies: Chills, Fever, Malaise, Weakness, Weight Change, Fatigue Eyes: Denies: Blurred vision HEENT: Denies: Head Aches, Sinus Congestion, Sinus Drainage Cardiovascular: Denies: Chest Pain, Chest Tightness, Heaviness, Light Headedness, Orthopnea, Palpitations, Syncope Respiratory: Reports: Shortness of Breath, Shortness of breath at rest, Shortness of breath upon exertion. Denies: Cough, Hemoptysis, Pleuritic Pain, Sputum production, Wheezing Gastrointestinal: Denies: Abdominal Pain, Nausea, Vomiting Genitourinary: Denies: Dysuria Musculoskeletal: Denies: Joint Pain, Joint Tenderness Skin: Denies: Rash, Wounds Neurological: Denies: Numbness, Tingling, Focal weakness Psychiatric: Denies: Anxiety, Depression, Homicidal Ideations, Suicidal Ideations Hematologic/ Lymphatic: Denies: Easy Bruising, Easy Bleeding VTE Information - Inpt Only VTE Present on Admission: No VTE Pharm Prophylaxis ordered?: Yes - Physical Exam General: Alert, Oriented x3, Cooperative, No apparent distress HEENT: Atraumatic, PERRLA, EOMI, Normocephalic Oral: Moist Mucosa Neck: Supple, No JVD, Negative Carotid Bruits Lungs: - - markedly decreased breath sounds in mid lower lung pritchard; breath sounds absent in lower lung pritchard. Abdomen: Bowel Sounds Present, Soft, Non Tender, Non-Distended, No Hepato-splenomegaly Extremities: No clubbing, No cyanosis, No edema, Capillary Refill Less than 3 Seconds Skin: No rashes, No breakdown Musculoskeletal: No Tenderness to Palpation of Joints or Extremities Lymphatic: No Cervical, Supraclavicular, or Inguinal Adenopathy Neurological: Cranial nerves II-XII grossly intact, Neuro grossly intact, Motor Exam 5/5 strength throughout Psych/Mental Status: Normal Affect, Appropriate, Alert and oriented to time, place, person, mood and affect Vital Signs Temp Pulse Resp BP Pulse Ox 97.3 F L 87 20 H 128/74 H 96 03/17/18 14:57 03/17/18 18:19 03/17/18 18:19 03/17/18 18:19 03/17/18 18:19 Oxygen Flow Rate (L/min) 2 Oxygen Delivery Method Room Air Weight: 180 lb Body Mass Index (BMI) 31.8 Laboratory Tests Past 24 Hrs WBC 9.2 RBC 4.64 Hgb 13.7 Hct 41.6 MCV 89.7 MCH 29.5 Diagnostic Data Chest X-Ray 03/17/18 15:46 IMPRESSION: Large left pleural effusion, otherwise unremarkable. Electronically Signed: Mariama Saha MD at 16:32 EST Tel , Service support , Chest CTA 03/17/18 17:49 IMPRESSION: 1. No evidence of pulmonary embolus or aortic dissection. 2. Moderate to large bilateral pleural effusions. No change from the prior study. 3. Moderate to marked mediastinal and axillary adenopathy. No change from prior. Electronically Signed: Mariama Saha MD at 19:07 EST Tel , Service support , Assessment/Plan All Active Problems (Last Reviewed 03/13/18 @ 14:52 by Taty Veliz) Follicular lymphoma grade III (Acute) 62 y/o female admitted with worsening shortness of breath for the past 2 weeks 1. NSTEMI * SOB has been worsening for 2 weeks; troponin on admission was 3.44 * EKG showed no acute ST changes * CT angiogram was negative for PE * echocardiogram (03/07/18); normal left ventricular systolic function with EF of 60% and pulmonary artery systolic pressure of 33 mmHg; no evidence of diastolic dysfunction. * admit to PCU with telemetry; cycle troponins * start SC lovenox 90IU bid. Received one dose of lovenox 80IU bid * give aspirin, plavix and atorvastatin 40mg * cardiology consult * 2. Bilateral pleural effusions, likely malignant * on 2 L of oxygen. Shortness of breath has been progressively getting worse for the past 2 weeks. Chest x-ray showed large left pleural effusion. CT of the chest was negative for PE and showed large left pleural effusion moderate right pleural effusion. * Consult pulmonology. She will need thoracentesis * 3. Follicular lymphoma stage III * recently diagnosed in 01/30. Has port in place * follows Dr Noyola; was due to start chemo this saturday. * to follow up with oncology on outpatient basis * DVT prophylaxis: therapeutic lovenox Code status: Patient and counseled extensively about different types of CODE STATUS including full code, DNR CCA and DNR CCA. Patient elects to be full code. Total [id number]-[id number] time 17 minutes. Code Visit Inpatient E AND M: 79566 Init Hosp L3 Procedures: 40963 Advncd Care Plan 30 Min 03/17/182023 <Electronically signed by Apolonia Moe MD> Date Apolonia Moe MD Cosigner Signature: Date (if applicable) CC: Catina Tejada MD; Apolonia Moe MD Signed EMERGENCY DEPARTMENT Observed: 03/17/2018 Status: F Source: [place] SUMMARY 7:26 PM [facility] Medical Records Department [address] [place] [address] Emergency Department Summary 03/17/181919 MR#: [id number] Acct: [id number] Name: CORI CORRIGAN Rep #: [id number] : 1955 62 From: Killian Lacy MD PCP: Catina Tejada MD Status: REG ER - ER Visit Summary Date of Service: 03/17/18 Chief Complaint: Shortness of breath History of Present Illness: The patient is a 62 F who presents with shortness of breath that started 2-3 days ago. Shortness of breath is continuous. It is worse with exertion. She also complains of bilateral upper back pain yesterday that was significant with increased shortness of breath. She denied diaphoresis or nausea. She recently had a venous duplex ultrasound of her lower extremities and rule out DVT. She was diagnosed 1 month ago with lymphoma. She had a port placed by Dr. Ortiz last Beck. She does report weight loss. She does report palpitations/rapid heart rate. She also reports generalized weakness. Review of systems otherwise negative. Physical Examination: Vital signs remarkable for a heart rate of 90 and respiratory of 30. BMI is 32. Saturation 93% on room air. She appears pale. Head is atraumatic normocephalic. Pupils are equal round reactive. Extraocular muscles are intact. TMs are pearly white with landmarks noted. Nares patent with no drainage. Posterior pharynx without erythema or exudate. Uvula is midline. There is no dysphonia or dysphasia. Trachea is midline. There is no stridor with auscultation of the neck. Heart is regular without murmur, gallop or rub. Absent breath sounds on the left. Abdomen soft nontender. There is edema of both the right and left lower extremity. Neuro exam is nonfocal. Affect is normal. Test Results: Chest x-ray reveals a significant effusion on the left. CBC is unremarkable. BMP is normal. Hepatic is unremarkable. Troponin is elevated at 3.44. CTA of the chest reveals large pleural effusion without evidence of pulmonary embolus Emergency Department Course and Treatment: With absent breath sounds on the left chest x-ray is obtained to evaluate for malignant effusion versus pneumothorax versus other cause. CBC, electrolyte panel and hepatic profile were obtained since she has stage III follicular lymphoma. If chest x-ray is unremarkable will need to consider pulmonary embolus since she has active cancer and recent surgery. Because of the bilateral upper back/shoulder pain with dyspnea need to rule out atypical presentation for coronary artery disease. Treatment Plan: Patient's troponins elevated 3.44. Would not expect significant increase with pulmonary embolus. However since she has multiple risk factors and initial consideration was for pulmonary embolus will obtain CTA. She was treated with aspirin and Lovenox. We will also applied Nitropaste. Disposition: PCU full admission Impression: Non-ST elevation MD Left malignant pleural effusion Stage III follicular lymphoma This note was generated with SI[employer] - [employer] dictation software. It may contain incorrect words, spelling, and punctuation that were not noted in review of the chart prior to signing ED Disposition - Plan for ED Patient: Chief Complaint: Shortness of Breath Referrals: Catina Tejada MD [Primary Care Provider] - What to do if you have Problems For any increased pain, shortness of breath, bleeding, nausea or vomiting, chest pain, or any unexpected problems, contact your Primary Care Provider. Call [facility] ([phone]) or report to the closest Emergency Room. Call 911 if necessary. 03/17/186 <Electronically signed by Killian Lacy MD> Date Killian Lacy MD Cosigner Signature (If Indicated): Date CC: Matias Tapia MD; Catina Tejada MD; Mukesh Martin MD CTA CHEST W/WO Observed: 03/17/2018 Status: F Source: [place] CONTRAST 5:50 PM [facility] Imaging Services [address] [place] [id number] CTA Chest W/WO Contrast MR#: [id number] Acct: [id number] Name: CORI CORRIGAN Rep #: [id number] : 1955 F 62 From: Mariama Saha MD PCP: Catina Tejada MD Status: REG ER Study: CTA Chest W/WO Contrast Date of Exam: 03/17/18 Exam# [id number] Ordering Dr: Killian Lacy MD STUDY: CTA CHEST REASON FOR EXAM: Female, 62 years old. SOB. RADIATION DOSAGE (If Supplied By Facility): CTDIvol = ( 11.36 ) mGy, DLP = ( 250.42 ) mGycm TECHNIQUE: The examination was performed with the intravenous administration of 100 ml of Isovue 370 contrast material. Post-processing of the angiographic images was performed, with multiplanar reformation and 3D reconstruction. Individualized dose optimization techniques were used for this CT. COMPARISON: 02/14/2018. FINDINGS: The heart and pericardium are normal. The aorta is normal in caliber, with no aneurysm or dissection. There is no evidence of pulmonary embolus. Pulmonary arteries are unremarkable. Port-A-Cath is identified on the right, terminating in the superior vena cava. There is moderate mediastinal adenopathy. There is moderate to marked axillary adenopathy bilaterally. There is a large left pleural effusion and a moderate right effusion. There is compressive atelectasis of the left lung. Visualized abdomen is unremarkable. There is no osseous abnormality. CT/CTA Chest W/WO Contrast IMPRESSION: 1. No evidence of pulmonary embolus or aortic dissection. 2. Moderate to large bilateral pleural effusions. No change from the prior study. 3. Moderate to marked mediastinal and axillary adenopathy. No change from prior. Electronically Signed: Mariama Saha MD at 19:07 EST Tel , Service support , CC: Catina Tejada MD; Killian Lacy MD Service Aide: Signed CBC W/DIFF, AUTOMATED Collected: 03/17/2018 Status: F Source: [place] 4:57 PM [facility] REPOSITORY TYPE CODE TESTS RESULT OUT OF RANGE REFERENCE UNITS LAB L100.1000 4.4-11.0 K/mm3 Normal WBC 9.2 LAB L100.1200 4.2-5.4 M/mm3 Normal RBC 4.64 LAB L100.1300 12.0-15.0 g/dl Normal HGB 13.7 LAB L100.1400 37-47 % Normal HCT 41.6 LAB L100.1500 81-99 fL Normal MCV 89.7 LAB L100.1600 27.0-32.0 pg Normal MCH 29.5 LAB L100.1700 32-36 g/gl Normal MCHC 32.9 LAB L100.1810 11.6-14.6 % High RDW CV 15.1 LAB L100.1820 35.1-43.9 fl High RDW SD 48.6 LAB L100.1900 150-450 K/mm3 Normal PLT 210 LAB L100.2000 6.2-12.0 fl High MPV 12.6 LAB L100.2100 47-70 % High NEUT% 77.0 LAB L100.2200 19-41 % Low LY% 10.1 LAB L100.2300 0-10 % High MONO% 12.4 LAB L100.2400 0-5 % Normal EO% 0.1 LAB L100.2500 0-1 % Normal BASO% 0.2 LAB L100.2550 0.0-0.9 % Normal IM GRAN % 0.200 Result Comment: IG% - Immature Granulocytes (promyelocytes, myelocytes and metamyelocytes) > 1% indicates that a LEFT SHIFT is Present. LAB L100.2620 2.0-7.7 X10 3/uL Normal Absolute Neut 7.1 LAB L100.2720 0.83-4.51 X10 3/ul Normal Absolute Lymph 0.93 Performed By: #### L100.0100 #### [facility] [address] [place], [address] BASIC METABOLIC Collected: 03/17/2018 Status: F Source: [place] PROFILE (BMP) 4:57 PM [facility] REPOSITORY TYPE CODE TESTS RESULT OUT OF RANGE REFERENCE UNITS LAB L501.0100 74-106 mg/dL Normal GLU 95 Result Comment: Please note revised GLUCOSE reference range effective 2017. LAB L501.1000 7-18 mg/dL Normal BUN 13 LAB L501.1100 0.55-1.02 mg/dL Normal CREAT,SERUM 0.59 Result Comment: The validity of the calculated GFR AND GFRAA in patients over 70 years has not been determined. Clinical correlation is essential. LAB L501.1110 >60 mL/min Normal EST GFR 109 Result Comment: Non- GFR Calc LAB L501.1115 >60 mL/min Normal EST GFR - AA 131 Result Comment: GFR Calc LAB L501.1255 ml/min Normal Estimated CRCL 79.69 LAB L501.1300 10-20 RATIO High BUN/CRE 22.0 LAB L501.2200 8.5-10 mg/dL Normal .1 CA 9.9 LAB L501.5300 136-14 mmol/L Low 5 NA 135 Result Comment: CALLED [facility] WITH CRITICAL CTNI BY MAF 12-3-18 AT 1742PM READ BACK BY SAME LAB L501.5600 3.5-5.1 mmol/L Normal K 3.9 LAB L501.5900 98-107 mmol/L Normal CL 99 LAB L501.6100 21.0-32.0 mmol/L Normal CO2 28.0 LAB L501.6200 5-15 Normal 8 GAP Performed By: #### L500.2500, L500.3400, L501.4010 #### [facility] [address] [place], [address] LIVER PROFILE Collected: 03/17/2018 Status: F Source: [place] 4:57 PM [facility] REPOSITORY TYPE CODE TESTS RESULT OUT OF RANGE REFERENCE UNITS LAB L501.1500 6.4-8.2 g/dL Normal T PROT 7.0 LAB L501.1800 3.2-5.0 g/dL Normal ALB 3.6 LAB L501.1950 2.2-4.2 g/dL Normal GLOB 3.4 LAB L501.4100 15-37 U/L High AST 45 LAB L501.4305 45-117 U/L Normal ALK P 73 LAB L501.4405 13-56 U/L Normal ALT 22 LAB L501.4600 0.20-1.00 mg/dL Normal T BILI 0.50 LAB L501.4700 0.00-0.30 mg/dL Normal D BILI 0.19 Performed By: #### L500.2500, L500.3400, L501.4010 #### [facility] [address] [facility] [place], [place], [address] TROPONIN-I Collected: 03/17/2018 Status: F Source: [place] 4:57 PM [facility] REPOSITORY TYPE CODE TESTS RESULT OUT OF RANGE REFERENCE UNITS LAB L501.4010 <0.045 ng/mL High alert 3.440 TROPONIN-I Result Comment: TROPONIN-I EXPECTED VALUES <0.045 Negative 0.045 - 0.590 Consistent with Cardiac Damage > OR = 0.600 Critical Value Not every elevated troponin is indicative of MD. These values should be used with clinical judgement in examining the patient's clinical picture for diagnosis. To establish a diagnosis of MD versus myocardial injury, there must be a demonstrated rise and/or fall in the troponin values, in addition to ischemic symptoms, EKG changes, new regional wall motion abnormality, and/or angiographical evidence. PLEASE NOTE: REFERENCE RANGES EDITED 17 Performed By: #### L500.2500, L500.3400, L501.4010 #### [facility] [address] [place], [address] CHEST PA AND LATERAL Observed: 03/17/2018 Status: F Source: [place] 3:44 PM [facility] REPOSITORY [facility] Imaging Services [address] [place] [address] Chest PA and Lateral MR#: [id number] Acct: [id number] Name: CORI CORRIGAN Rep #: [id number] : 1955 F 62 From: Mariama Saha MD PCP: Catina Tejada MD Status: REG ER Study: Chest PA and Lateral Date of Exam: 03/17/18 Exam# [id number] Ordering Dr: Killian Lacy MD STUDY: X-RAY CHEST REASON FOR EXAM: Female, 62 years old. SOB, dyspnea. Recent lymphoma diagnosis. TECHNIQUE: PA and lateral chest. COMPARISON: 03/14/2018. FINDINGS: There is a large left pleural effusion, increased compared to the prior study. Right Port-A-Cath is unchanged in position. Normal mediastinum and alex. There is a mild thoracic levoscoliosis. Normal visualized ribs, clavicles, and shoulders. There is no demonstrated abnormality of the visualized soft tissue structures of the upper abdomen. RAD/Chest PA and Lateral IMPRESSION: Large left pleural effusion, otherwise unremarkable. Electronically Signed: Mariama Saha MD at 16:32 EST Tel , Service support , CC: Catina Tejada MD; Killian Lacy MD Service Aide: Signed 12 LEAD ELECTROCARDIOGRAM Observed: 03/14/2018 Status: F Source: [place] 2:13 PM [facility] REPOSITORY [facility] Cardiovascular Services [address] [place] [address] 12 Lead EKG 03/14/18 0924 MR#: [id number] Acct: [id number] Name: CORI CORRIGAN Rep #: [id number] : 1955 62 From: Matias Tapia MD Attending Dr: Mukesh Martin MD Status: DEP [facility] Ordering Dr: Jose Narvaez MD Date: 03/14/18 Location: [facility] Sex: F C Admitted: Test Reason : PREOP Blood Pressure : / mmHG Vent. Rate : 061 BPM Atrial Rate : 061 BPM P-R Int : 158 ms QRS Dur : 086 ms QT Int : 378 ms P-R-T Axes : 037 019 030 degrees QTc Int : 380 ms Normal sinus rhythm Low voltage QRS Borderline ECG No previous ECGs available Confirmed by WILLIE MATA, MATIAS ([id number]), features editor KAREN MARCELINO ([id number]) on 03/14/2018 2:13:24 PM Referred By: Mukesh Martin Confirmed By:MATIAS TAPIA MD 03/14/18 1413 Date Matias Tapia MD CC: Jose Narvaez MD; Catina Tejada MD; Mukesh Martin MD Signed DISCHARGE INSTRUCTION Observed: 03/14/2018 Status: F Source: [place] 1:39 PM [facility] REPOSITORY [facility] Medical Records Department [address] [place] [address] Instructions for Home/Discharge Instructions 03/14/18 1113 MR#: [id number] Acct: [id number] Name: CORI CORRIGAN Rep #: [id number] : 1955 62 From: Mukesh Martin MD PCP: Catina Tejada MD Status: DEP SD Discharge Diet: Light diet - advance as tolerated - if you have questions about your diet instructions, please talk to you doctor. Discharge Activity: May Not Drive - for 1 week or while taking narcotic pain medicine. May shower in (days): 1 Lifting Restrictions: 10 pounds Call your doctor if your incision/area has: Continuous Slow Oozing, Sudden Increased Bleeding, Increased Pain/ Swelling, Increased Redness, Foul Smelling Discharge Call your doctor if you observe: Fever of 101 or Higher Suture Line Care: Avoid Pulling/Pushing, Avoid Pinching/Bending Additional Dressing/Incision Instructions:: Change or remove dressing in 4 days. Leave steri-strips in place for 1 week. Allergies/Adverse Reactions: Allergies No Known Allergies Allergy (Verified 03/14/18 09:32) Medications to take at Discharge aspirin 81 mg tablet,delayed release 81 mg PO DAILY 02/10/18 omega-3 fatty acids 1,000 mg capsule 1,000 mg PO DAILY 02/10/18 Multivitamin [Multiple Vitamins] 1 tab PO DAILY 02/25/18 Hydrocodone Bitart/Apap 5-325 [[place] 5MG-325MG] 1 tablet PO Q6H PRN PRN 2 Days #5 tablet 03/14/18 The following prescriptions were given: Hydrocodone Bitart/Apap 5-325 [[place] 5MG-325MG] 1 tablet PO Q6H PRN PRN 2 Days #5 tablet PRN Reason: Pain Primary Care Physician: Catina Tejada MD [Primary Care Provider] - Test Results: Test results from this visit will be discussed in further detail at your follow-up appointment, if applicable. Please Follow Up With: Mukesh Martin MD - [phone] When: Office appointment can be scheduled if needed 03/14/18 1334 <Electronically signed by Mukesh Martin MD> Date Mukesh Martin MD CC: Catina Tejada MD OPERATIVE REPORT Observed: 03/14/2018 Status: F Source: [place] 11:54 AM [facility] REPOSITORY [facility] Medical Records Department [address] [place] [address] [place] [address] Operative Report 03/14/18 1151 MR#: [id number] Acct: [id number] Name: CORI CORRIGAN Rep #: [id number] : 1955 62 From: Mukesh Martin MD PCP: Catina Tejada MD Status: REG [facility] Y Location: [place] [address] Problem List (1) Follicular lymphoma grade III Status: Acute Qualifiers: Lymphoma site: axillary Qualified Code(s): C82.24 - Follicular lymphoma grade III, unspecified, lymph nodes of axilla and upper limb Report of Operation Date of Procedure: 03/14/18 Pre-Operative Diagnosis: Follicular lymphoma Post-Operative Diagnosis: Same Surgery/Procedure Performed:: Right internal jugular 6 Czech power port placement Description of Surgical Findings:: Timeout and informed consent was obtained. 62-year-old female was taken out from placement table she underwent monitored anesthesia care. Ancef 2 g given intravenously preoperatively. The right neck and chest were sterilely prepped and draped. Under ultrasound guidance 1% lidocaine mixed 50-50 with 0.5% Marcaine was used as a local anesthetic. Total of 15 cc was used. Local was micropuncture needle was inserted under ultrasound guidance the right internal jugular vein. So much wire advancement. Fluoroscopy demonstrated good positioning. Local was then instilled down upon the chest wall. A transverse incision was made second intercostal space midclavicular line and using electrocautery sub-changes pocket was created. The tubing was tunneled from the neck to the chest site. Micropuncture sheath was placed over the micropuncture wire and an 035 J-wire was inserted. Fluoroscopy demonstrated good positioning. The sheath dilator was placed over the wire dilator wire removed the catheter advanced through the sheath the sheath was split the catheter was placed at the SVC atrial junction it was amputated to length connected the port secured with port attachment device. The port was placed within the pocket secured there with interrupted 2- 0 silk. The port site was closed with interrupted 3-0 Vicryl subdermal sutures. The neck was closed with interrupted 5-0 Vicryl subdermal stitches. The port was accessed. It aspirated easily it was flushed with saline and heparinized saline. Steri-Strips Telfa and OpSite dressings applied. Sponge and instrument and needle counts were reported the surgeon to be correct. Blood loss was minimal. Specimens none. Drains none. Blood loss minimal. She was taken to the recovery area in satisfactory condition. Stat portable chest x-ray is pending. Mukesh Martin M.D., F.A.C.S. Type of Anesthesia:: Local MAC Anesthesiologist: Doc Toure 03/14/18 1154 <Electronically signed by Mukesh Martin MD> Date Mukesh Martin MD CC: Catina Tejada MD; Mukesh Martin MD Signed CXR FOR LINE PLACEMENT Observed: 03/14/2018 Status: F Source: [place] 11:14 AM [facility] REPOSITORY [facility] Imaging Services [address] [place] [address] CXR for Line Placement MR#: [id number] Acct: [id number] Name: CORI CORRIGAN Rep #: [id number] : 1955 F 62 From: Denny Juarez MD PCP: Catina Tejada MD Status: [facility] Study: CXR for Line Placement Date of Exam: 03/14/18 Exam# [id number] Ordering Dr: Mueksh Martin MD STUDY: X-RAY CHEST REASON FOR EXAM: Female, 62 years old. Port placement. TECHNIQUE: Single AP portable view of the chest. COMPARISON: Comparison is made with prior study dated January 27, 2018. FINDINGS: A right-sided ward catheter has been placed. The tip is at the junction of the superior vena cava and right atrium. Since prior study, there has been a progression of the left pleural effusion with underlying infiltration and/or atelectasis. Normal size heart. Normal mediastinum and alex. Normal visualized pulmonary arteries. There is atherosclerotic calcification of the aortic arch with tortuosity. Mild levoscoliosis. Normal visualized ribs, clavicles, and shoulders. There is no demonstrated abnormality of the visualized soft tissue structures of the upper abdomen. RAD/CXR for Line Placement IMPRESSION: The tip of the right portacatheter is at the junction of the superior vena cava and right atrium. Since prior study, there has been increasing left pleural effusion with underlying infiltration and/or atelectasis. Electronically Signed: Denny Juarez MD at 12:35 EST Tel [phone], Service support , CC: Catina Tejada MD; Mukesh Martin MD Service Aide: Signed ONCOLOGY VISIT REPORT Observed: 03/14/2018 Status: F Source: [place] 10:46 AM [facility] REPOSITORY [facility] [address] [place] [address]. [place] [address] OFFICE VISIT Date of Service: 03/13/18 1448 MR#: [id number] Acct: [id number] Name: CORI CORRIGAN Rep #: [id number] : 1955 From: Sam Aiken MD Age/Sex: 62/F Location: [facility] Status: Signed - Problem List (1) Follicular lymphoma grade III Status: Acute Qualifiers: Lymphoma site: multiple regions Qualified Code(s): C82.28 - Follicular lymphoma grade III, unspecified, lymph nodes of multiple sites (2) Breast nodule Status: Suspected - Date of Service Date of Service:: 03/13/18 - Chief Complaint Lymphoma, new diagnosis - History of Present Illness Patient is a 62-year-old female who presented with generalized lymphadenopathy and a biopsy revealed follicular lymphoma. February 13, 2018 Left groin lymph node, core biopsy: Consistent with follicular center lymphoma, grade 3/3 ANTIBODY / CLONE RESULT CD45 (RP2/18) positive AE1-3 (AE1/AE3/PCK26) negative S-100 (4C4.9) negative Vimentin (V9) positive P40 (BC28) negative P53 (DO-7) positive, rare Ki-67 (30-9) positive, low to moderate CD3 (PS1) negative CD5 (SP10) negative CD10 (56C6) positive CD15 (MMA) negative CD20 (L26) positive CD23 (1B12) negative CD30 (Constantino-H2) negative CD43 (L60) negative CD79a (11E3) positive CD138 (B-A38) negative BCL-2 (bcl-2/100/D5) positive BCL-6 (QS249U/A8) positive Cyclin D1/BCL-1 (SP4) negative [place] (polyclonal) negative Lambda (polyclonal) negative MUM1 (MRQ-43) equivocal February 14, 2018 CT chest: FINDINGS: There is evidence of a bilateral supraclavicular lymphadenopathy worse on the left side. The largest measures 4.3 cm x 2.9 cm. This compresses the left lobe of the thyroid. There is also evidence of bilateral axillary lymphadenopathy worse on the left side. There is skin thickening of the left breast. There is a 1.7 cm x 1.2 cm nodule in the deep posterior lateral aspect of the left breast. Large left pleural effusion with mild loss in the right hemithorax. Small right pleural effusion. Normal heart and pericardium. Multiple mediastinal lymph nodes involving the anterior and middle mediastinum. There is evidence of a subcarinal lymphadenopathy as well as bilateral hilar lymphadenopathy. Normal enhanced pulmonary arteries. Normal aorta arch and descending thoracic aorta. There are multi-level degenerative changes of the thoracic spine. Increased kyphosis. Retroperitoneal lymphadenopathy. Periportal adenopathy. CT/Chest WITH Contrast IMPRESSION: Supraclavicular and bilateral axillary lymph nodes worse on the left side. Diffuse mediastinal and hilar lymphadenopathy with the bilateral pleural effusions left greater than right with atelectasis at the left lung base. February 14, 2018 CT abdomen and pelvis: FINDINGS: There is a 1.7 cm x 1.2 cm enhancing nodular density in the deep inferior lateral aspect of the left breast. There is evidence of diffuse skin thickening of the visualized portion of the left breast. Bilateral pleural effusions moderate on the left small on the right with underlying infiltration and/or atelectasis more prominent on the left side. Atelectasis along the anterior medial aspect of the lingular segment of the left upper lobe. The visualized portions of the heart are within normal limits. Normal liver. Normal gallbladder and extrahepatic biliary system. Mild splenomegaly. There is a 1 cm x 2.4 cm linear hypodensity along the posterior lateral aspect of the midportion of the spleen. This may represent an old laceration. Clinical correlation is recommended. Normal pancreas. Normal bilateral adrenal glands. Normal right kidney. Normal left kidney. Normal visualized stomach. Normal small intestine. Normal colon. The appendix is visualized and appears normal. There is diffuse atherosclerotic calcification of the abdominal aorta, without a demonstrated aneurysm. Normal inferior vena cava. There is retroperitoneal lymphadenopathy with enlarged nodes greater than 10-15mm in the short axis. Multiple rounded soft tissue densities are seen in the pelvis sidewalls in keeping with enlarged adenopathy as well as iliac chain adenopathy. There is also evidence of enlarged bilateral inguinal lymph nodes worse on the left side. Is also evidence of lymphadenopathy within the root of the mesentery. Normal urinary bladder. Normal abdominal wall. Mild dextroscoliosis. CT/Abdomen/Pelvis WITH Contrast IMPRESSION: Diffuse retroperitoneal lymphadenopathy as well as pelvic lymphadenopathy. Lymph nodes are seen in both inguinal regions more prominent on the left side. Bilateral pleural effusions left greater than right with underlying atelectasis and/or infiltration. Left breast skin thickening with the 1.7 cm x 1.2 cm nodular density in the deep inferior lateral aspect of the left breast. PET/CT March 11, 2018: FINDINGS: 1. Multifocal increased FDG concentration is manifest in the bilateral axillary, supraclavicular, anterior and lateral neck lymph node distributions, too many to individually articulate, generating a calculated maximal standard uptake value of 5.6. The Lugano Deauville score is 5. The maximal axial diameter of the largest individual hypermetabolic soft tissue density on review of CT of the neck-thorax dated 03/10/18 is 37.6-mm (transverse) x 22.1-mm (AP). 2. Enhanced glucose metabolism is manifest in the pre-subcarinal mediastinum generating a calculated maximal standard uptake value of 4.0. The Lug[place] Deauville score is 5. The maximal axial diameter of the largest individual metabolic, morphologic abnormality on review of CT of the thorax dated 03/10/18 is 37.8-mm (transverse) x 46.7-mm (AP). 3. Innumerable foci of facilitated labeled FDG uptake are noted in the upper to lower abdominal retroperitoneum, abdominal mesentery, the bilateral hemipelvis and right-left inguinal lymph node distributions. The calculated maximal standard uptake value is 6.1. The Lugano Deauville score is 5. The largest individual metabolic, morphologic abnormality on review of CT of the abdomen dated 03/10/18 is 25.3-mm (transverse) x 47.9-mm (AP). 4. Uniform enhanced radiopharmaceutical concentration is noted throughout the parenchyma of a normal size spleen generating a corrected calculated maximal standard uptake value of 3.8 (corrected) greater than that defined in the hepatic reference. The Lugano Deauville score is 5. 5. There is homogenous enhanced glucose concentration evidenced in the visualized appendicular and axial skeletal structures with a Lugano-Deauville score of 5. 6. Normal physiologic distribution of the radiopharmaceutical is apparent in the hepatic (2.8) parenchyma, both renal units, bladder and visualized intestinal tract. The visualized portion of the cerebral cortex, cerebellar hemispheres and basal ganglia demonstrates uniform and preserved glucose metabolism. Diffuse radiopharmaceutical concentration is noted in all four quadrants of the abdomen and pelvis. Pertinent CT findings are as follows: CHEST: Bilateral hemithorax pleural effusions are non-glucose avid. There are no parenchymal densities-nodules demonstrated in the right-left hemithorax demonstrating discernible increased glucose metabolism. There is atherosclerotic calcification defined in the thoracic aorta without evidence of dilatation-aneurysm formation. ABDOMEN AND PELVIS: There is atherosclerotic calcification defined in the abdominal aorta without evidence of dilatation-aneurysm formation. Pelvic arterial calcification is observed. Calcification is defined in the left lower hemipelvis. SKELETAL: Degenerative changes are noted in the cervical, thoracic and lumbar spine. PET/PET/CT Tumor Base -Thigh Init IMPRESSION: 1. ABNORMAL EXAMINATION INDICATIVE OF MALIGNANT VIABLE NEOPLASM. 2. Increased glucose concentration noted in the bilateral axillary and supraclavicular, right-left anterior and lateral neck structures fulfills quantitative criteria for viable neoplasm. 3. Neoplastic transformation is noted in the mediastinal structures. (Herlinda et al, Journal of Clinical Oncology 16:2142, 1998). 4. Facilitated FDG uptake noted in the abdominal retroperitoneum and mesentery, bilateral hemipelvis and inguinal regions fulfills quantitative criteria for viable neoplasm. 5. There is evidence of viable neoplastic transformation involving the splenic parenchyma. (Vanessa et al., Journal of Nuclear Medicine 44:1072, 2004). 6. Diffuse increased glucose concentration observed in the appendicular, axial skeletal structures likely represents neoplasm. (Lupe et al, Clinical Nuclear Medicine, 29:161, 2004). Electronic Signature Germán Milner D.O. - Past Medical/Social History Social History Social History: No changes Smoking Status Current every day smoker Review of Systems Comment: See my recent note of February 25, 2018 Vital Signs Height 5 ft 2 in Weight: 82.1 kg Weight in Pounds 181.0 lbs Pulse Ox 96 - Physical Exam General: Alert, Oriented x3, No apparent distress, - - ECOG 0-1 Laboratory Data: Laboratory Tests Lactate Dehydrogenase 342 H Diagnostic Data: Diagnostic Data PET, CT Tumor Imaging 03/10/18 09:33 IMPRESSION: 1. ABNORMAL EXAMINATION INDICATIVE OF MALIGNANT VIABLE NEOPLASM. 2. Increased glucose concentration noted in the bilateral axillary and supraclavicular, right-left anterior and lateral neck structures fulfills quantitative criteria for viable neoplasm. 3. Neoplastic transformation is noted in the mediastinal structures. (Herlinda et al, Journal of Clinical Oncology 16:2142, 1998). 4. Facilitated FDG uptake noted in the abdominal retroperitoneum and mesentery, bilateral hemipelvis and inguinal regions fulfills quantitative criteria for viable neoplasm. 5. There is evidence of viable neoplastic transformation involving the splenic parenchyma. (Vanessa et al., Journal of Nuclear Medicine 44:1072, 2004). 6. Diffuse increased glucose concentration observed in the appendicular, axial skeletal structures likely represents neoplasm. (doyle Andrade, Clinical Nuclear Medicine, 29:161, 2004). Electronic Signature Germán Milner D.O. Electronically Signed: Germán Milner DO at 22:33 EST Tel , Service support , Assessment and Plan 62-year-old female with: 1. 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 Her FLIPI score of 4 (age above 60, elevated LDH, stage IV and more than 4 kate areas involved) puts her at the high risk group (2-year overall survival of 87%, 2-year progression free survival of 65%, and median progression free survival 42 months) for those treated with systemic therapy including Rituxan. She has had a rather aggressive course with rapidly enlarging generalized lymphadenopathy over the course of 1-2 months in addition to a moderate size left pleural effusion that may be due to lymphomatous involvement or disruption of lymphatic drainage by lymphoma. 2. Left breast nodule on CT but not on mammography or ultrasound and mammographic abnormalities noted more likely related to impairment of lymph drainage from the breast due to lymphomatous involvement of axillary nodes (discussed with Dr. Martin). 3. Hepatitis B and C serologies are negative. 4. She has a mild hypercalcemia probably secondary to her lymphoma. 5. Pretreatment cardiac ejection fraction satisfactory (60% by echo) Of note patient has a family history of breast and ovarian cancer (mother) and lymphoma (brother just recently diagnosed with lymphoma and has not started therapy yet) Plan: 1. Systemic chemotherapy with R CHOP support with Neulasta. 2. Tumor lysis prophylaxis during cycle 1 with allopurinol 300 mg daily for 1 week started 24 hours prior to systemic therapy, oral and vigorous IV hydration days 1-3. 3. Mild hypercalcemia: Hydration and treatment of lymphoma. Patient was seen was her , impression and plan discussed. Case also discussed with Dr. Martin. Medications: Prescriptions This Visit Medication Instructions Recorded Multivitamin [Multiple Vitamins] 1 tab PO DAILY 02/25/18 Primary Care Provider: Catina Tejada MD Referring Provider: 03/14/18 1046 <Electronically signed by Sam Aiken MD> Date Sam Aiken MD Cosigner Signature: Date (if applicable) CC: Catina Tejada MD; Mukesh Martin MD PET/CT TUMOR BASE Observed: 03/10/2018 Status: F Source: [place] [facility] [place] 9:33 AM [facility] Imaging Services [address] [place] [address] PET/CT Tumor Base -Thigh Init MR#: [id number] Acct: [id number] Name: CORI CORRIGAN Rep #: [id number] : 1955 F 62 From: Germán Milner DO PCP: Catina Tejada MD Status: REG RCR Study: PET/CT Tumor Base -Thigh Init Date of Exam: 03/10/18 Exam# [id number] Ordering Dr: Sam Aiken MD EXAMINATION: FDG PET/CT INDICATIONS: A 62-year-old female with reported history of lymphoma presenting for initial staging examination. COMPARISON EXAMINATION: CT of the chest, abdomen and pelvis reports dated 02/14/18 INDEX LESION SIZE LUGANO SCORE SUV INTERPRETATION Bilateral axillary supraclavicular, right-left lateral anterior neck 37.6 x 22.1-mm (largest) (frame 217) 5 5.6 (max) Fulfills quantitative criteria for viable neoplasm Pre-subcarinal mediastinum 37.8 x 46.7-mm (largest) (frame 197) 5 4.0 (max) Fulfills quantitative criteria for viable neoplasm Abdominal retroperitoneum-mesentery, bilateral hemipelvis, inguinal regions 25.3 x 47.9-mm (largest) 5 6.1 (max) Fulfills quantitative criteria for viable neoplasm Spleen, uniform increased uptake 5 3.8 > hepatic ref. Fulfills quantitative criteria for viable neoplasm Homogeneous appendicular, axial skeletal structures Likely represents neoplasm TECHNIQUE: Following the intravenous administration of 15.16 mCi of F-18 deoxyglucose via the left antecubital fossa, multiplanar image acquisitions of the neck, chest, abdomen and pelvis to level of mid thigh, obtained at one hour post radiopharmaceutical administration contemporaneously interpreted with the current CT of the neck, chest, abdomen and pelvis to level of mid thigh, dated 03/10/[address] of the chest, abdomen and pelvis reports dated 02/14/18 reveal: SERUM GLUCOSE LEVEL: 90 mg/dl. HEIGHT: 63 inches. WEIGHT: 180 lbs. FINDINGS: 1. Multifocal increased FDG concentration is manifest in the bilateral axillary, supraclavicular, anterior and lateral neck lymph node distributions, too many to individually articulate, generating a calculated maximal standard uptake value of 5.6. The Lugano Deauville score is 5. The maximal axial diameter of the largest individual hypermetabolic soft tissue density on review of CT of the neck-thorax dated 03/10/18 is 37.6-mm (transverse) x 22.1-mm (AP). 2. Enhanced glucose metabolism is manifest in the pre-subcarinal mediastinum generating a calculated maximal standard uptake value of 4.0. The Lugano Deauville score is 5. The maximal axial diameter of the largest individual metabolic, morphologic abnormality on review of CT of the thorax dated 03/10/18 is 37.8-mm (transverse) x 46.7-mm (AP). 3. Innumerable foci of facilitated labeled FDG uptake are noted in the upper to lower abdominal retroperitoneum, abdominal mesentery, the bilateral hemipelvis and right-left inguinal lymph node distributions. The calculated maximal standard uptake value is 6.1. The Lugano Deauville score is 5. The largest individual metabolic, morphologic abnormality on review of CT of the abdomen dated 03/10/18 is 25.3-mm (transverse) x 47.9-mm (AP). 4. Uniform enhanced radiopharmaceutical concentration is noted throughout the parenchyma of a normal size spleen generating a corrected calculated maximal standard uptake value of 3.8 (corrected) greater than that defined in the hepatic reference. The Lugano Deauville score is 5. 5. There is homogenous enhanced glucose concentration evidenced in the visualized appendicular and axial skeletal structures with a Lugano-Deauville score of 5. 6. Normal physiologic distribution of the radiopharmaceutical is apparent in the hepatic (2.8) parenchyma, both renal units, bladder and visualized intestinal tract. The visualized portion of the cerebral cortex, cerebellar hemispheres and basal ganglia demonstrates uniform and preserved glucose metabolism. Diffuse radiopharmaceutical concentration is noted in all four quadrants of the abdomen and pelvis. Pertinent CT findings are as follows: CHEST: Bilateral hemithorax pleural effusions are non-glucose avid. There are no parenchymal densities-nodules demonstrated in the right-left hemithorax demonstrating discernible increased glucose metabolism. There is atherosclerotic calcification defined in the thoracic aorta without evidence of dilatation-aneurysm formation. ABDOMEN AND PELVIS: There is atherosclerotic calcification defined in the abdominal aorta without evidence of dilatation-aneurysm formation. Pelvic arterial calcification is observed. Calcification is defined in the left lower hemipelvis. SKELETAL: Degenerative changes are noted in the cervical, thoracic and lumbar spine. PET/PET/CT Tumor Base -Thigh Init IMPRESSION: 1. ABNORMAL EXAMINATION INDICATIVE OF MALIGNANT VIABLE NEOPLASM. 2. Increased glucose concentration noted in the bilateral axillary and supraclavicular, right-left anterior and lateral neck structures fulfills quantitative criteria for viable neoplasm. 3. Neoplastic transformation is noted in the mediastinal structures. (Ayaan, Journal of Clinical Oncology 16:2142, 1997). 4. Facilitated FDG uptake noted in the abdominal retroperitoneum and mesentery, bilateral hemipelvis and inguinal regions fulfills quantitative criteria for viable neoplasm. 5. There is evidence of viable neoplastic transformation involving the splenic parenchyma. (Vanessa ward al., Journal of Nuclear Medicine 44:1072, 2004). 6. Diffuse increased glucose concentration observed in the appendicular, axial skeletal structures likely represents neoplasm. (doyle Andrade, Clinical Nuclear Medicine, 29:161, 2004). Electronic Signature Germán Milner D.O. Electronically Signed: Germán Milner DO at 22:33 EST Tel , Service support , CC: Catina Tejada MD; Sam Aiken MD Service Aide: Signed ONC ECHOCARDIOGRAM Observed: 03/07/2018 Status: F Source: [facility] 3:33 PM [facility] Cardiovascular Services [address] [place] [address] ONC Echo Complete 03/07/18 1349 MR#: [id number] Acct: [id number] Name: CORI CORRIGAN Rep #: [id number] : 1955 62 From: Matias Tapia MD Attending Dr: Sam Aiken MD Status: REG CLI Ordering Dr: Sam Aiken MD Date: 03/07/18 Location: [facility] Sex: F C Admitted: Reason For Study: PRE-CHEMO Procedure This was a 2D Doppler, Color Flow transthoracic echocardiogram. Myocardial strain analysis was performed in this exam to aid in the assessment of cardiac function. Exam performed in department. Left Ventricle Normal LV size. Left ventricular systolic function is normal. The estimated ejection fraction is 60 %. No evidence for diastolic dysfunction. No regional wall motion abnormalities noted. Right Ventricle Normal RV size. Normal systolic function. Atria Normal left atrium. Normal right atrium. Mitral Valve Normal mitral valve. Mild (1+) eccentric mitral valve insufficiency. Tricuspid Valve Normal tricuspid valve. Mild (1+) tricuspid valve insufficiency. Pulmonary artery systolic pressure is 33 mmHg. Aortic Valve Normal aortic valve. Trisinus/trileaflet aortic valve. Pulmonic Valve Normal pulmonic valve. Great Vessels Normal aortic root. The pulmonary artery is normal size. Normal inferior vena cava. Pericardium/Pleural Small pericardial effusion. Large left pleural effusion. MMode/2D Measurements AND Calculations LVIDd: 4.4 cm IVSd: 0.89 cm Ao root diam: 3.4 cm LVIDs: 3.0 cm LVPWd: 0.91 cm RVDd: 3.0 cm FS: 31.4 % LAV(MOD-bp): 55.9 ml LA A4 area: 17.2 cm2 LA dimension(2D): 3.6 cm LAV(MOD-bp) Indexed: 30.2 ml/m2 LAV(MOD-sp2): 58.5 ml LAV(MOD-sp4): 47.8 ml RA A4 area: 12.7 cm2 Time Measurements MV dec time: 0.26 sec Doppler Measurements AND Calculations MV E max daniel: 79.7 cm/sec Lat Peak E' Daniel: 10.1 cm/sec Med Peak E' Daniel: 7.4 cm/sec MV A max daniel: 72.9 cm/sec E/E' lat: 7.9 E/E' med: 10.7 MV E/A: 1.1 Ao V2 max: 122.3 cm/sec LV V1 max: 121.0 cm/sec TR max daniel: 267.9 cm/sec Ao max P.0 mmHg LV V1 max P.9 mmHg TR max P.1 mmHg Interpretation Summary Normal LV size. Left ventricular systolic function is normal. The estimated ejection fraction is 60 %. No evidence for diastolic dysfunction. Mild (1+) tricuspid valve insufficiency. Pulmonary artery systolic pressure is 33 mmHg. The global longitudinal strain is normal. The global longitudinal strain = -23.3 % (normal). Ordering Physician: Sam Aiken Referring Physician: CATINA TEJADA Performed By: Pauline Santamaria RDCS, RVT 03/07/18 153 Date Matias Tapia MD CC: Catina Tejada MD; Sam Aiken MD Date Dictated: 03/07/18 1349 Date Transcribed: 03/07/181531 Service Aide: Signed VENOUS DUPLEX LOWER Observed: 03/07/2018 Status: F Source: [place] EXTREMITY 11:42 AM [facility] Cardiovascular Services [address] [facility] [place] [address] Venous Duplex - [facility] 03/04/18 1527 MR#: [id number] Acct: [id number] Name: CORI CORRIGAN Rep #: [id number] : 1955 62 From: Arnol Bundy MD Attending Dr: Catina Tejada MD Status: REG CLI Ordering Dr: Catina Tejada MD Date: 03/04/18 Location: [facility] Sex: F C Admitted: Reason For Study: swelling RIGHT LEFT GSV is normal. GSV is normal. CFV is compressible, spontaneous, phasic, CFV is compressible, spontaneous, phasic, competent and demonstrates normal competent, and demonstrates normal augmentation. augmentation. FV is compressible, spontaneous, phasic, FV is compressible, spontaneous, phasic, competent and demonstrates normal competent and demonstrates normal augmentation. augmentation. POP V is compressible, spontaneous, phasic, POP V is compressible, spontaneous, phasic, competent and demonstrates normal competent and demonstrates normal augmentation. augmentation. T/P Trunk is compressible. T/P Trunk is compressible. PTV is compressible. PTV is compressible. RT PerV is compressible. LT PerV is compressible. Multiple heterogeneous areas in the groin Multiple heterogeneous areas in the groin with arterial flow noted. with arterial flow noted. Procedure Exam performed in department. The exam was diagnostic. A preliminary report was called and/or faxed to Dr. Tejada. <> Interpretation Summary Deep veins of the lower extremities are bilaterally patent and compressible segmentally. There is no evidence of deep vein thrombosis on either side. Valvular competence appears intact within the proximal deep venous systems bilaterally. The greater saphenous veins appear bilaterally patent and compressible segmentally. Multiple heterogeneous areas/structures with arterial flow are noted in groin bilaterally. These may represent lymph nodes/lymphadenopathy. Clinical correlation is advised. Ordering Physician: Catina Tejada Performed By: Dawn, Venancio, RVT 03/07/18 1142 Date Arnol Bundy MD CC: Catina Tejada MD Date Dictated: 03/04/18 1527 Date Transcribed: 03/07/18 1142 Service Aide: Signed DIAG MAMM W/CAD, Observed: 03/03/2018 Status: F Source: [place] B[place] 1:52 PM [facility] Imaging Services [address] [place] [address] DIAG MAMM W/CAD, BILAT MR#: [id number] Acct: [id number] Name: CORI CORRIGAN Rep #: [id number] : 1955 F 62 From: Denny Juarez MD PCP: Catina Tejada MD Status: REG CLI Study: DIAG MAMM W/CAD, BILAT Date of Exam: 03/03/18 Exam# [id number] Ordering Dr: Sam Aiken MD MAMMOGRAPHY - BILATERAL DIAGNOSTIC REASON FOR EXAM: Female, 62 years old. Left lateral breast swelling and thickening. Mass seen on a recent CT scan of the thorax. PERTINENT HISTORY: Mother with breast cancer. TECHNIQUE: Digital bilateral breast gal (3D mammographic acquisition) in the CC and MLO projections. 2-D mediolateral oblique (MLO) and craniocaudad (CC) views of both breasts were obtained. CAD: Full Field Digital Mammography with Computer Added Detection was performed. COMPARISON: Comparison is made with prior either examination is December 21, 2013. FINDINGS: Breast Composition: The breasts are heterogeneously dense, which may obscure small masses. There is diffuse increased markings in the left breast with diffuse skin thickening. There now is evidence of at least 3 large lymph nodes in the left axilla. Smaller lymph nodes are seen in the right axillary region. 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 No other significant abnormalities are identified. BI/DIAG MAMM W/CAD, BILAT IMPRESSION: Diffuse skin thickening of the left breast with increased markings within the left breast suggestive of a inflammatory breast carcinoma. Enlarged bilateral axillary lymph nodes worse on the left side. A biopsy recommended. ASSESSMENT CATEGORY: BIRADS Category 5: Highly Suggestive of Malignancy - Appropriate Action Should Be Taken. A letter regarding these results will be sent to the patient by the facility within 30 days. Approximately 10% of breast cancers are not detected by mammography. A normal mammogram should not delay biopsy of a clinically suspicious abnormality. Electronically Signed: Denny Juarez MD at 10:44 EST Tel [phone], Service support , CC: Catina Tejada MD; Sam Aiken MD Service Aide: Signed CBC W/DIFF, AUTOMATED Collected: 02/26/2018 Status: F Source: [place] 2:05 PM [facility] Order Comment: Reason for Laboratory Test . TYPE CODE TESTS RESULT OUT OF RANGE REFERENCE UNITS LAB L100.1000 4.4-11.0 K/mm3 Normal WBC 7.1 LAB L100.1200 4.2-5.4 M/mm3 Normal RBC 4.60 LAB L100.1300 12.0-15.0 g/dl Normal HGB 13.7 LAB L100.1400 37-47 % Normal HCT 42.1 LAB L100.1500 81-99 fL Normal MCV 91.5 LAB L100.1600 27.0-32.0 pg Normal MCH 29.8 LAB L100.1700 32-36 g/gl Normal MCHC 32.5 LAB L100.1810 11.6-14.6 % High RDW CV 15.7 LAB L100.1820 35.1-43.9 fl High RDW SD 52.2 LAB L100.1900 150-450 K/mm3 Normal PLT 201 LAB L100.2000 6.2-12.0 fl High MPV 12.5 LAB L100.2100 47-70 % Normal NEUT% 58.2 LAB L100.2200 19-41 % Normal LY% 27.0 LAB L100.2300 0-10 % High MONO% 13.7 LAB L100.2400 0-5 % Normal EO% 0.7 LAB L100.2500 0-1 % Normal BASO% 0.3 LAB L100.2550 0.0-0.9 % Normal IM GRAN % 0.100 Result Comment: IG% - Immature Granulocytes (promyelocytes, myelocytes and metamyelocytes) > 1% indicates that a LEFT SHIFT is Present. LAB L100.2620 2.0-7.7 X10 3/uL Normal Absolute Neut 4.2 LAB L100.2720 0.83-4.51 X10 3/ul Normal Absolute Lymph 1.93 Performed By: #### L100.0100, L100.9950 #### [facility] [address] [place], [place], [id number] RETIC PANEL Collected: 02/26/2018 Status: F Source: [place] 2:05 PM [facility] Order Comment: Reason for Laboratory Test . TYPE CODE TESTS RESULT OUT OF RANGE REFERENCE UNITS LAB L101.0000 0.5-1.5 % Normal RETIC 1.42 LAB L101.0060 3.00-15.90 % IM Normal RET FRACTION 7.90 LAB L101.0090 30-35 pg Normal RET-HE 31.8 LAB L101.0110 1.0-7.9 % High IPF 8.2 Result Comment: Low PLT + Low IPF suggest a bone marrow production disorder Low PLT + high IPF suggests peripheral destruction (e.g.ITP, TTP, HIT, DIC, autoimmune) or bone marrow recovery Trending of serial IPF measurements is recommended when evaluating for bone marrow respones Value above normal range indicates an increase in RBC cellular response from bone marrow. Performed By: #### L100.0100, L100.9950 #### [facility] [address] [place], [place], [id number] COMPREHENSIVE METABOLIC Collected: 02/26/2018 Status: F Source: [facility] 2:05 [facility] REPOSITORY Order Comment: Reason for Laboratory Test . Serial Specimen #1, #2 or #3? 1 TYPE CODE TESTS RESULT OUT OF RANGE REFERENCE UNITS LAB L501.0100 74-106 mg/dL Normal GLU 80 Result Comment: Please note revised GLUCOSE reference range effective 2017. LAB L501.1000 7-18 mg/dL Normal BUN 12 LAB L501.1100 0.55-1.02 mg/dL Normal CREAT,SERUM 0.66 Result Comment: The validity of the calculated GFR AND GFRAA in patients over 70 years has not been determined. Clinical correlation is essential. LAB L501.1110 >60 mL/min Normal EST GFR 96 Result Comment: Non- GFR Calc LAB L501.1115 >60 mL/min Normal EST GFR - AA 116 Result Comment: GFR Calc LAB L501.1255 ml/min Normal Estimated CRCL 68.11 LAB L501.1300 10-20 RATIO Normal BUN/CRE 18.2 LAB L501.1500 6.4-8. g/dL Normal 2 T PROT 7.3 LAB L501.1800 3.2-5. g/dL Normal 0 ALB 3.8 LAB L501.1950 2.2-4. g/dL Normal 2 GLOB 3.5 LAB L501.2000 0.9-2. RATIO Normal 4 A/G 1.1 LAB L501.2200 8.5-10 mg/dL High .1 CA 10.3 LAB L501.4100 15-37 U/L Normal AST 37 LAB L501.4305 45-117 U/L Normal ALK P 80 LAB L501.4405 13-56 U/L Normal ALT 27 LAB L501.4600 0.20-1 mg/dL Normal .00 T BILI 0.40 LAB L501.5300 136-14 mmol/L Normal 5 NA 136 LAB L501.5600 3.5-5. mmol/L Normal 1 K 4.2 LAB L501.5900 98-107 mmol/L Normal CL 101 LAB L501.6100 21.0-3 mmol/L Normal 2.0 CO2 25.0 LAB L501.6200 5-15 Normal GAP 10 Performed By: #### L500.4050, L501.1400, L504.2610 #### [facility] [address] [place], [address] URIC ACID Collected: 02/26/2018 Status: F Source: [place] 2:05 PM [facility] Order Comment: Reason for Laboratory Test . Serial Specimen #1, #2 or #3? 1 TYPE CODE TESTS RESULT OUT OF RANGE REFERENCE UNITS LAB L501.1400 2.6-6.0 mg/dL Normal URIC 5.5 Result Comment: The drugs N-Acetylcysteine and Metamizole may falsely depress this assay. Performed By: #### L500.4050, L501.1400, L504.2610 #### [facility] [address] [place], [address] LDH Collected: 02/26/2018 Status: F Source: [place] 2:05 PM [facility] Order Comment: Reason for Laboratory Test . Serial Specimen #1, #2 or #3? 1 TYPE CODE TESTS RESULT OUT OF RANGE REFERENCE UNITS LAB L504.2610 84-246 U/L High LDH 342 Performed By: #### L500.4050, L501.1400, L504.2610 #### [facility] [address] [place], [address] ONCOLOGY HISTORY AND Observed: 02/25/2018 Status: F Source: [place] PHYSICAL 5:01 PM [facility] Medical Records Department [address] [place] [address] History and Physical 02/25/18 1637 MR#: [id number] Acct: [id number] Name: CORI CORRIGAN Rep #: [id number] : 1955 62 From: Sam Aiken MD PCP: Catina Tejada MD Status: REG RCR Y Location: [facility] - Problem List (1) Follicular lymphoma grade III Status: Acute Qualifiers: Lymphoma site: multiple regions Qualified Code(s): C82.28 - Follicular lymphoma grade III, unspecified, lymph nodes of multiple sites (2) Breast nodule Status: Acute Subjective Date of Service:: 02/25/18 Chief Complaint: Lymphoma History of Present Illness: Patient is a 62-year-old female who presented with generalized lymphadenopathy and a biopsy revealed follicular lymphoma. February 13, 2018 Left groin lymph node, core biopsy: Consistent with follicular center lymphoma, grade 3/3 ANTIBODY / CLONE RESULT CD45 (RP2/18) positive AE1-3 (AE1/AE3/PCK26) negative S-100 (4C4.9) negative Vimentin (V9) positive P40 (BC28) negative P53 (DO-7) positive, rare Ki-67 (30-9) positive, low to moderate CD3 (PS1) negative CD5 (SP10) negative CD10 (56C6) positive CD15 (MMA) negative CD20 (L26) positive CD23 (1B12) negative CD30 (Constantino-H2) negative CD43 (L60) negative CD79a (11E3) positive CD138 (B-A38) negative BCL-2 (bcl-2/100/D5) positive BCL-6 (HH813D/A8) positive Cyclin D1/BCL-1 (SP4) negative [place] (polyclonal) negative Lambda (polyclonal) negative MUM1 (MRQ-43) equivocal February 14, 2018 CT chest: FINDINGS: There is evidence of a bilateral supraclavicular lymphadenopathy worse on the left side. The largest measures 4.3 cm x 2.9 cm. This compresses the left lobe of the thyroid. There is also evidence of bilateral axillary lymphadenopathy worse on the left side. There is skin thickening of the left breast. There is a 1.7 cm x 1.2 cm nodule in the deep posterior lateral aspect of the left breast. Large left pleural effusion with mild loss in the right hemithorax. Small right pleural effusion. Normal heart and pericardium. Multiple mediastinal lymph nodes involving the anterior and middle mediastinum. There is evidence of a subcarinal lymphadenopathy as well as bilateral hilar lymphadenopathy. Normal enhanced pulmonary arteries. Normal aorta arch and descending thoracic aorta. There are multi-level degenerative changes of the thoracic spine. Increased kyphosis. Retroperitoneal lymphadenopathy. Periportal adenopathy. CT/Chest WITH Contrast IMPRESSION: Supraclavicular and bilateral axillary lymph nodes worse on the left side. Diffuse mediastinal and hilar lymphadenopathy with the bilateral pleural effusions left greater than right with atelectasis at the left lung base. February 14, 2018 CT abdomen and pelvis: FINDINGS: There is a 1.7 cm x 1.2 cm enhancing nodular density in the deep inferior lateral aspect of the left breast. There is evidence of diffuse skin thickening of the visualized portion of the left breast. Bilateral pleural effusions moderate on the left small on the right with underlying infiltration and/or atelectasis more prominent on the left side. Atelectasis along the anterior medial aspect of the lingular segment of the left upper lobe. The visualized portions of the heart are within normal limits. Normal liver. Normal gallbladder and extrahepatic biliary system. Mild splenomegaly. There is a 1 cm x 2.4 cm linear hypodensity along the posterior lateral aspect of the midportion of the spleen. This may represent an old laceration. Clinical correlation is recommended. Normal pancreas. Normal bilateral adrenal glands. Normal right kidney. Normal left kidney. Normal visualized stomach. Normal small intestine. Normal colon. The appendix is visualized and appears normal. There is diffuse atherosclerotic calcification of the abdominal aorta, without a demonstrated aneurysm. Normal inferior vena cava. There is retroperitoneal lymphadenopathy with enlarged nodes greater than 10-15mm in the short axis. Multiple rounded soft tissue densities are seen in the pelvis sidewalls in keeping with enlarged adenopathy as well as iliac chain adenopathy. There is also evidence of enlarged bilateral inguinal lymph nodes worse on the left side. Is also evidence of lymphadenopathy within the root of the mesentery. Normal urinary bladder. Normal abdominal wall. Mild dextroscoliosis. CT/Abdomen/Pelvis WITH Contrast IMPRESSION: Diffuse retroperitoneal lymphadenopathy as well as pelvic lymphadenopathy. Lymph nodes are seen in both inguinal regions more prominent on the left side. Bilateral pleural effusions left greater than right with underlying atelectasis and/or infiltration. Left breast skin thickening with the 1.7 cm x 1.2 cm nodular density in the deep inferior lateral aspect of the left breast. Health History: Past Medical History (Last Reviewed 02/25/18 @ 15:26 by Taty Veliz) Constipation (Acute) Lymphadenopathy (Acute) Past Surgical History (Last Updated 02/13/18 @ 08:23 by Aileen Gonzalez) Hx of lymph node biopsy (Acute 02/2018) No history of previous surgery (Acute) Family History (Last Updated 02/25/18 @ 16:08 by Sam Aiken MD) Father Diabetes Arthritis Heart disease Kidney disease Stomach ulcer Hypertension Sister Diabetes Arthritis Heart disease Hypertension Thyroid disorder Mother Breast cancer Cancer Brother Diabetes Kidney disease Hypertension Lymphoma Allergies/Adverse Reactions: Allergy/AdvReac Type Severity Reaction Status Date / Time No Known Allergies Allergy Verified 02/25/18 15:28 Risk Factors Social History Social History: No changes Smoking Status Current every day smoker Tobacco Risk Data: Tobacco Risk Smoking Status Current every day smoker Type of tobacco: Smokeless tobacco usage: Items/Day: Year started: Years used: 19 Counseled to quit/cut down: Reason for no counseling performed: Reason for no pharmacotherapy: Tobacco use comments: Passive smoke exposure: No Substance Risk Drug use: No Caffeine use [drinks/day]: 0 Alcohol use: No Type of alcohol: Drinks per day: Has patient felt the need to cut down: Has the patient been annoyed by complaints: Has the patient felt guilty about drinking: 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: Comments: 1.5 PACK DAILY Date of last colonoscopy:: 12/14/16 Date of last mammogram:: 04/15/13 Review of Systems Constitutional:: Denies: Fever, Sweats, Weight loss, Appetite change, Chills Cardiovascular:: Denies: Chest pain, Palpitations, Dyspnea on exertion, Orthopnea, PND, Shortness of breath Respiratory: Denies: Cough, Hemoptysis, Shortness of Breath, Wheezing Gastrointestinal:: Denies: Abdominal pain, Nausea, Vomiting, Diarrhea, Constipation, Hematochezia Genitourinary: Denies: Dysuria, Hematuria, 15, Flank pain Musculoskeletal:: Denies: Back pain, Myalgia, Arthralgia Skin: Denies: Rash, Skin Changes, Wounds Neurological:: Denies: Headache, Dizziness, Visual changes, Tinnitus, Hearing loss Psychiatric: Denies: Anxiety, Depression, Homicidal Ideations, Suicidal Ideations Comment: Patient is aware of painless enlarging lymph nodes in her neck over the course of the past 1-2 months Vital Signs Height 5 ft 2 in Weight: 82.282 kg Weight in Pounds 181.4 lbs Pulse Ox 96 - Physical Exam General: Alert, Oriented x3, No apparent distress, - - ECOG 0 HEENT: Atraumatic, PERRLA, EOMI, Normocephalic Oropharynx:: Dry mucosa Neck:: Supple, Trachea midline. Negative for: JVD, bilateral Cardiac:: Regular rate, Regular rhythm, Normal S1, Normal S2. Negative for: Murmur Lungs: Clear to auscultation, Diminished - On the left side findings are consistent with a moderate-sized pleural effusion, Excusion symmetrical. Negative for: Rhonchi, Wheezes Abdomen:: Soft, Non-tender, Non-distended. Negative for: Hepatosplenomegaly Extremities:: Negative for: Cyanosis, Edema Neurological: Neuro grossly intact Skin:: Negative for: Lesions, Rash, Petechiae, Ecchymosis Psychiatric:: Appropriate affect, Euthymic Lymphatics:: Cervical lymphadenopathy, Supraclavicular lymphadenopathy, Axillary lymphadenopathy, - - Patient has generalized lymphadenopathy measuring overall between 2-4 cm in diameter Breast:: - - No skin or nipple changes or palpable masses felt in both breasts Laboratory Data: Laboratory Tests WBC 8.4 Hgb 14.6 Hct 43.6 MCV 90.1 Plt Count 180 Absolute Neuts (auto) 5.1 WBC Hgb Hct MCV Plt Count Absolute Neuts (auto) Diagnostic Data: I personally reviewed patient's CT images and concur with the reported findings Assessment and Plan 62-year-old female with: 1. Follicular lymphoma grade 3 at least stage IIIA with generalized lymphadenopathy. She has a rather aggressive course was rapidly enlarging generalized lymphadenopathy over the course of 1-2 months in addition to a moderate size left pleural effusion that may be due to lymphomatous involvement or disruption of lymphatic drainage by lymphoma. 2. Left breast nodule require further workup to rule out breast cancer. 3. Hepatitis B and C serologies are negative. 4. She has a mild hypercalcemia probably secondary to her lymphoma. Of note patient has a family history of breast and ovarian cancer (mother) and lymphoma (brother just recently diagnosed with lymphoma and has not started therapy yet) Plan: 1. PET/CT baseline and for further staging. 2. mammogram and ultrasound and depending on findings may need a left breast biopsy. 3. Update CBC, CMP, LDH and uric acid. 4. Bone marrow biopsy may be indicated depending on findings on PET/CT and updated CBC (if PET is negative and CBC shows no cytopenias bone marrow biopsy is not necessary). 5. Echocardiography prior to anthracycline based chemotherapy (R-CHOP) Patient was seen was her , impression and plan discussed. Case also discussed with Dr. Martin. Medications: Prescriptions This Visit Medication Instructions Recorded Multivitamin [Multiple Vitamins] 1 tab PO DAILY 02/25/18 Primary Care Provider: Catina Tejada MD Referring Provider: 02/25/18 1701 <Electronically signed by Sam Aiken MD> Date Sam Aiken MD Cosigner Signature: Date (if applicable) CC: Catina Tejada MD; Sam Aiken MD; Mukesh Martin MD Signed SURGERY VISIT REPORT Observed: 02/25/2018 Status: F Source: [place] 4:56 PM [facility] REPOSITORY [facility] [address] [place] [address] [address] [place] [address] OFFICE VISIT Date of Service: 02/25/18 MR#: [id number] Acct: [id number] Name: CORI CORRIGAN Rep #: [id number] : 1955 Provider: Mukesh Martin MD Age/Sex: 62/F Location: [facility] Status: Signed Intake Intake Visit Reasons: Breast Bx and Port Placement Consult Allergies No Known Allergies Allergy (Verified 02/25/18 15:28) Medications aspirin 81 mg tablet,delayed release 81 mg PO DAILY 02/10/18 [History Confirmed 02/25/18] omega-3 fatty acids 1,000 mg capsule 1,000 mg PO DAILY 02/10/18 [History Confirmed 02/25/18] Multivitamin [Multiple Vitamins] 1 tab PO DAILY 02/25/18 [History Confirmed 02/25/18] PFSH Medical History Constipation (Acute) Lymphadenopathy (Acute) Surgical History Hx of lymph node biopsy (Acute 02/2018) No history of previous surgery (Acute) Family History Father Diabetes Arthritis Heart disease Kidney disease Stomach ulcer Hypertension Sister Diabetes Arthritis Heart disease Hypertension Thyroid disorder Mother Breast cancer Cancer ovarian Brother Diabetes Kidney disease Hypertension Lymphoma Social History Smoking Status: Current every day smoker alcohol intake: never substance use type: does not use HPI HPI HPI: CORI CORRIGAN is a 62 F who presents to the office today for surgical consultation regarding port placement and possible left breast biopsy. I saw this patient on February 10. I subsequently performed a ultrasound-guided mammotome biopsy left groin adenopathy. She has diffuse adenopathy. Follicular lymphoma grade 3 Previous office notes reflect the following. MR#:[id number] Name: CORI CORRIGAN JRep #:[id number] : 1955 Provider:Mukesh Martin MD Age/Sex: 62/F Location:[facility] Status:Signed Intake Vital Signs 02/10/18 Height 5 ft 4 in 02/10/18 Weight: 180 lb 02/10/18 Body Mass Index (BMI) 30.9 02/10/18 Blood Pressure 129/76 H 02/10/18 Blood Pressure Location Rt brachial 02/10/18 Blood Pressure Position Sitting 02/10/18 Respiratory Rate 18 02/10/18 Pulse Rate 73 02/10/18 Pulse Source Monitor 02/10/18 Temperature 97.9 F 02/10/18 Temperature Source Oral 02/10/18 Pulse Ox 94 02/10/18 Oxygen Delivery Method room air Intake Visit Reasons: Lymphadenopathy [facility] 01/31 Protection Consultant Required: No Is patient in pain?: No Allergies No Known Allergies Allergy (Unverified 02/10/18 15:02) Medications aspirin 81 mg tablet,delayed release 81 mg PO DAILY 02/10/18 [History Confirmed 02/10/18] omega-3 fatty acids 1,000 mg capsule 1,000 mg PO DAILY 02/10/18 [History Confirmed 02/10/18] [facility] Medical History Constipation (Acute) Lymphadenopathy (Acute) Surgical History No history of previous surgery (Acute) Family History Father Arthritis Diabetes Heart disease Hypertension Kidney disease Stomach ulcer Sister Arthritis Diabetes Heart disease Hypertension Thyroid disorder Mother Breast cancer Cancer ovarian Brother Diabetes Hypertension Kidney disease Social History Smoking Status: Current every day smoker alcohol intake: never substance use type: does not use HPI HPI HPI: CORI VALENTIN, is a 62 F who presents to the office today for surgical consultation regarding adenopathy. The patient is referred by Dr Catina Tejada for surgical consultation regarding diffuse adenopathy and a written copy of my surgical consult recommendations will be returned to him. The patient states that in 2013 she had adenopathy of the right neck. She states that she had a biopsy and was told it was nothing. She states that the area mostly abated. She presented now complaining of right and left neck adenopathy. She seemed not to notice the bilateral axillary and bilateral groin adenopathy. She denies fever or chills or sweats or nausea or vomiting or unexpected weight loss. Upon questioning it seems apparent that her eldest brother may have had lymphoma. At the [facility] January 31 she had a superficial ultrasound of the neck. Markedly abnormal and bulky neck adenopathy suggestive of lymphoma or metastatic disease was identified. Tissue sampling was recommended. On January 31, 2018 she also had bilateral groin ultrasound showing multiple large lymph nodes largest on the right being 6 cm and the largest on the left 5.7 cm. The patient has been a ongoing almost lifelong cigarette smoker at the rate of at least a pack per day. On January 27, 2018 she had a PA and lateral chest x-ray. There is an elevated left hemidiaphragm with blunting of the left costophrenic angle. No mediastinal adenopathy. On January 27 her white count was 8.4 with a hemoglobin 14.6 and hematocrit of 43.6 and a platelet count of 180,000. 22% lymphocytes 61% neutrophils. BUN was 13 and creatinine 0.77. Liver panel was normal. ROS General General: No weight change, appetite, fatigue, colon cancer, breast cancer or weakness HEENT HEENT: Yes swollen glands; no difficulty swallowing, eye injury, eye surgery or hoarseness Endo Endocrine: No thyroid disease, diabetes mellitus, thyroid cancer, Hair loss, heat intolerance or cold intolerance Skin Skin: No rash or changing moles Breast Breast: No left breast lump, right breast lump, nipple discharge, breast pain, abnormal mammogram, abnormal US or breast enlargement Musc Musculoskeletal: No back problems, arthritis, rheumatoid arthritis, gout or joint pain Cardio Cardiovascular: No murmur, pacemaker, heart disease, atrial fibrillation, high blood pressure, heart attack, heart stent, palpitations, shortness of breat with exertion or chest pain Psych Psychiatric: No depression, anxiety or hearing voices Resp Respiratory: No shortness of breath, No sleep apnea, No cough, No COPD, No asthma, No emphysema, No wheezing Gastro Gastrointestinal: No abdominal pain, No nausea or vomiting, No diarrhea, Yes constipation, No blood in stool, No acid reflux, No hemorrhoids, No ulcers, No gallbladder problem, No black,tarry stools Rodger Hematologic: Yes blood thinners, No blood disorders, No bleeding, No anemia, No blood clots Neuro Neurologic: No system reviewed and no additional complaints, except as docu, No as per HPI, No abnormal walking, No abnormal hearing, No abnormal movements, No abnormal speech, No behavioral changes, No burning sensations, No confusion, No seizure-like activity, No unsteadiness, No dizziness, No localized weakness, No frequent falls, No headache(s), No lack of coordination, No loss of vision, No memory loss, No numbness, No other visual disturbances, No radiating pain, No restless legs, No sensory deficit, No fainting, No tingling, No tremor(s), No weakness, No other Exam Const General: cooperative, comfortable, no acute distress Nutritional Appearance: average body habitus Orientation: alert, awake, oriented x3 HENMT Other: Multiple fixed lymph nodes noted bilateral neck. Nontender Eyes General: appearance normal, both eyes and all related structures Chest Breast Palpation: No nipple discharge Other: Large fixed lymph nodes noted bilateral axilla Resp Effort AND Inspection: normal respiratory effort Auscultation: clear to auscultation bilaterally Cardio Rate: regular rate Rhythm: regular rhythm Heart Sounds: no murmurs GI Palpation: soft, no hepatosplenomegaly Other: Multiple enlarged bilateral groin nodes identified. Nontender Neuro General: CN's II-XI intact bilaterally Extrem General: no calf tenderness Psych Affect: normal affect Assessment AND Plan Problems 1. Generalized lymphadenopathy R59.1 Plan Findings are very much consistent with generalized lymphoma. I recommend patient a ultrasound large core mammotome biopsy. Believe that the left groin would be the safest approach. I discussed the technique, benefits, risks, alternatives. The patient has had an opting to ask and have questions answered. We will schedule and expedite her care. I very much appreciate the kind opportunity of assisting with her surgical management. Cc: Dr Catina Martin M.D., F.A.C.S. Coding Level of Care Code Detailed, Low Diagnoses Generalized lymphadenopathy R59.1 02/10/18 1746<Electronically signed by Mukesh Martin MD> Date Mukesh Martin MD [facility] Imaging Services [address] [place] [address] Abdomen/Pelvis WITH Contrast MR#: [id number] Name: CORI CORRIGAN [facility] #:[id number] : 1955F 62 From: Denny Juarez MD PCP:Catina Tejada MD Status:REG CLI Study:Abdomen/Pelvis WITH Contrast Date of Exam:02/14/18 Exam#[id number] Ordering Dr: Mukesh Martin MD STUDY: CT ABDOMEN AND PELVIS WITH CONTRAST REASON FOR EXAM: Female, 62 years old. Lymphadenopathy. RADIATION DOSAGE (If Supplied By Facility): CTDIvol = ( 12.95 ) mGy, DLP = ( 1143.26 ) mGycm TECHNIQUE: Transaxial images were obtained from the dome of the diaphragm to the symphysis pubis with oral contrast. 100 ml of Isovue 300 contrast was administered. Sagittal and coronal images were reconstructed. Individualized dose optimization techniques were used for this CT. COMPARISON: None. FINDINGS: There is a 1.7 cm x 1.2 cm enhancing nodular density in the deep inferior lateral aspect of the left breast. There is evidence of diffuse skin thickening of the visualized portion of the left breast. Bilateral pleural effusions moderate on the left small on the right with underlying infiltration and/or atelectasis more prominent on the left side. Atelectasis along the anterior medial aspect of the lingular segment of the left upper lobe. The visualized portions of the heart are within normal limits. Normal liver. Normal gallbladder and extrahepatic biliary system. Mild splenomegaly. There is a 1 cm x 2.4 cm linear hypodensity along the posterior lateral aspect of the midportion of the spleen. This may represent an old laceration. Clinical correlation is recommended. Normal pancreas. Normal bilateral adrenal glands. Normal right kidney. Normal left kidney. Normal visualized stomach. Normal small intestine. Normal colon. The appendix is visualized and appears normal. There is diffuse atherosclerotic calcification of the abdominal aorta, without a demonstrated aneurysm. Normal inferior vena cava. There is retroperitoneal lymphadenopathy with enlarged nodes greater than 10-15mm in the short axis. Multiple rounded soft tissue densities are seen in the pelvis sidewalls in keeping with enlarged adenopathy as well as iliac chain adenopathy. There is also evidence of enlarged bilateral inguinal lymph nodes worse on the left side. Is also evidence of lymphadenopathy within the root of the mesentery. Normal urinary bladder. Normal abdominal wall. Mild dextroscoliosis. CT/Abdomen/Pelvis WITH Contrast IMPRESSION: Diffuse retroperitoneal lymphadenopathy as well as pelvic lymphadenopathy. Lymph nodes are seen in both inguinal regions more prominent on the left side. Bilateral pleural effusions left greater than right with underlying atelectasis and/or infiltration. Left breast skin thickening with the 1.7 cm x 1.2 cm nodular density in the deep inferior lateral aspect of the left breast. Electronically Signed: Denny Juarez MD at 14:15 EDT Tel [phone], Service support , CC: Catina Tejada MD; Mukesh Martin MD Service Aide: Signed [facility] Imaging Services [address] [place] [address] Chest WITH Contrast MR#: [id number] Name: CORI CORRIGAN [facility] #:[id number] : 1955F [id number] From: Denny Juarez MD PCP:Catina Tejada MD Status:[facility] CL Study:Chest WITH Contrast Date of Exam:02/14/18 Exam#[id number] Ordering Dr: Mukesh Martin MD STUDY: CT CHEST WITH CONTRAST REASON FOR EXAM: Female, 62 years old. Lymphadenopathy. RADIATION DOSAGE (If Supplied By Facility): CTDIvol = ( 12.95 ) mGy, DLP = ( 1143.26 ) mGycm TECHNIQUE: Transaxial imaging was performed following intravenous administration of 100 ml of Isovue 300 contrast material. Multiplanar coronal and sagittal images were reformatted. Individualized dose optimization techniques were used for this CT. COMPARISON: None. FINDINGS: There is evidence of a bilateral supraclavicular lymphadenopathy worse on the left side. The largest measures 4.3 cm x 2.9 cm. This compresses the left lobe of the thyroid. There is also evidence of bilateral axillary lymphadenopathy worse on the left side. There is skin thickening of the left breast. There is a 1.7 cm x 1.2 cm nodule in the deep posterior lateral aspect of the left breast. Large left pleural effusion with mild loss in the right hemithorax. Small right pleural effusion. Normal heart and pericardium. Multiple mediastinal lymph nodes involving the anterior and middle mediastinum. There is evidence of a subcarinal lymphadenopathy as well as bilateral hilar lymphadenopathy. Normal enhanced pulmonary arteries. Normal aorta arch and descending thoracic aorta. There are multi-level degenerative changes of the thoracic spine. Increased kyphosis. Retroperitoneal lymphadenopathy. Periportal adenopathy. CT/Chest WITH Contrast IMPRESSION: Supraclavicular and bilateral axillary lymph nodes worse on the left side. Diffuse mediastinal and hilar lymphadenopathy with the bilateral pleural effusions left greater than right with atelectasis at the left lung base. Electronically Signed: Denny Juarez MD at 14:19 EDT Tel [phone], Service support , Assessment AND Plan Problems 1. 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 Breast nodule N63.0 Plan The patient is being cared for by Dr. Sam Aiken and a request has been made to place a port. The patient does have bilateral cervical adenopathy but I believe that I can get access to the right internal jugular vein with ultrasound guidance. The patient on CT imaging also has suggestion of a left posterior breast lesion. She certainly has bilateral axillary adenopathy. The patient is scheduled to have bilateral breast mammography and left breast ultrasonography. Based upon this information can then decide whether she would benefit in addition to the right internal jugular port placement a ultrasound-guided needle core biopsy left breast intraoperatively. On clinical examination today she certainly has edema of the skin of the left breast but I believe that this is secondary to poor lymphatic drainage secondary to the very remarkable left axillary adenopathy. I have a lower level suspicion that she has a primary left breast malignancy. We will await imaging and then pursue is noted. I appreciate the ongoing opportunity to continue to assist with her surgical care CC: Dr.'s Tejada and Nelli Martin M.D., F.A.C.S. 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.28 Lymphoma site: multiple regions Breast nodule N63.0 02/25/18 1656 <Electronically signed by Mukesh Martin MD> Date Mukesh Martin MD Cosigner Signature: Date (if applicable) CC: Catina Tejada MD; Sam Aiken MD VITAMIN D,25 HYDROXY Collected: 02/18/2018 Status: F Source: [place] 9:10 AM [facility] REPOSITORY TYPE CODE TESTS RESULT OUT OF REFERENCE UNITS RANGE LAB L506.1000 29.95-100.01 ng/mL Low Vitamin D 27.5 25-OH Result Comment: Vitamin D 25(OH) Status Range Deficiency <20 ng/mL (50nmol/L) Insuffciency 20 - 30 ng/mL (50 - 75 nmol/L) Sufficiency 30 - 100 ng/mL (75 - 250 nmol/L) Toxicity >100 ng/mL (>250 nmol/L) Performed By: #### L506.1000, L501.2300, L501.9520, L509.1000 #### [facility] [address] [place], [address] PHOSPHORUS Collected: 02/18/2018 Status: F Source: [place] 9:10 AM [facility] REPOSITORY TYPE CODE TESTS RESULT OUT OF RANGE REFERENCE UNITS LAB L501.2300 2.5-4.9 mg/dL Normal PHOS 4.1 Performed By: #### L506.1000, L501.2300, L501.9520, L509.1000 #### [facility] [address] [place], [address] THYROID STIM HORMONE Collected: 02/18/2018 Status: F Source: [place] (TSH) 9:10 AM [facility] REPOSITORY TYPE CODE TESTS RESULT OUT OF RANGE REFERENCE UNITS LAB L501.9520 0.358-3.74 uIU/mL Normal TSH 2.99 Performed By: #### L506.1000, L501.2300, L501.9520, L509.1000 #### [facility] [address] [place], [address] PTHIN Collected: 02/18/2018 Status: F Source: [place] 9:10 AM [facility] REPOSITORY TYPE CODE TESTS RESULT OUT OF RANGE REFERENCE UNITS LAB L509.1000 18.4-80.1 pg/mL Normal PTHIN 44.4 Performed By: #### L506.1000, L501.2300, L501.9520, L509.1000 #### [facility] [address] [place], [address] COMPREHENSIVE METABOLIC Collected: 02/18/2018 Status: F Source: [place] PROFIL 9:10 AM [facility] REPOSITORY TYPE CODE TESTS RESULT OUT OF RANGE REFERENCE UNITS LAB L501.0100 74-106 mg/dL Normal GLU 78 Result Comment: Please note revised GLUCOSE reference range effective 2017. LAB L501.1000 7-18 mg/dL Normal BUN 11 LAB L501.1100 0.55-1.02 mg/dL Normal CREAT,SERUM 0.66 Result Comment: The validity of the calculated GFR AND GFRAA in patients over 70 years has not been determined. Clinical correlation is essential. LAB L501.1110 >60 mL/min Normal EST GFR 95 Result Comment: Non- GFR Calc LAB L501.1115 >60 mL/min Normal EST GFR - AA 115 Result Comment: GFR Calc LAB L501.1300 10-20 RATIO Normal BUN/CRE 16.6 LAB L501.1500 6.4-8.2 g/dL T Normal PROT 7.2 LAB L501.1800 3.2-5.0 g/dL Normal ALB 3.7 LAB L501.1950 2.2-4.2 g/dL Normal GLOB 3.5 LAB L501.2000 0.9-2.4 RATIO Normal A/G 1.1 LAB L501.2200 8.5-10.1 mg/dL High CA 10.5 LAB L501.4100 15-37 U/L Normal AST 35 LAB L501.4305 45-117 U/L Normal ALK P 82 LAB L501.4405 13-56 U/L Normal ALT 26 LAB L501.4600 0.20-1.00 mg/dL T Normal BILI 0.40 LAB L501.5300 136-145 mmol/L NA Normal 137 LAB L501.5600 3.5-5.1 mmol/L K Normal 4.1 LAB L501.5900 98-107 mmol/L CL Normal 103 LAB L501.6100 21.0-32.0 mmol/L Normal CO2 24.0 LAB L501.6200 5-15 Normal GAP 10 Performed By: #### L500.4050 #### [facility] [address] [place], [address] #### L3100.0390, L3100.0528, L3100.0625 #### [facility] (refer to report for specific site) refer to report for address and phone number HEPATITIS B SURFACE Collected: 02/18/2018 Status: F Source: [place] 9:10 AM [facility] REPOSITORY TYPE CODE TESTS RESULT OUT OF RANGE REFERENCE UNITS LAB L3100.0400 Negative Normal HB Negative SURF AG Result Comment: Performed at: - [facility], [place], [place] [id number] Hematologist: Sherif Mendez PhD, Phone: [phone] Performed By: #### L500.4050 #### [facility] [address] [place] [address]. [place], [address] #### L3100.0390, L3100.0528, L3100.0625 #### [facility] (refer to report for specific site) refer to report for address and phone number HEP B SURFACE Collected: 02/18/2018 Status: F Source: [place] ANTIBODIES 9:10 AM [facility] REPOSITORY TYPE CODE TESTS RESULT OUT OF RANGE REFERENCE UNITS LAB L3100.0528 . Normal Hep B Non Reactive Mirtha AB Result Comment: Non Reactive: Inconsistent with immunity, less than 10 mIU/mL Reactive: Consistent with immunity, greater than 9.9 mIU/mL Performed By: #### L500.4050 #### [facility] [address] [place] [address], [address] #### L3100.0390, L3100.0528, L3100.0625 #### [facility] (refer to report for specific site) refer to report for address and phone number HEPATITIS C ANTIBODIES Collected: 02/18/2018 Status: F Source: [place] 9:10 AM [facility] REPOSITORY TYPE CODE TESTS RESULT OUT OF RANGE REFERENCE UNITS LAB L3100.0650 0.0-0.9 s/co ratio Normal HEP C AB <0.1 Result Comment: Negative: < 0.8 Indeterminate: 0.8 - 0.9 Positive: > 0.9 The CDC recommends that a positive HCV antibody result be followed up with a HCV Nucleic Acid Amplification test (111586). Performed By: #### L500.4050 #### [facility] [address] [place] [address], [address] #### L3100.0390, L3100.0528, L3100.0625 #### [facility] (refer to report for specific site) refer to report for address and phone number CALCIUM IONIZED Collected: 02/18/2018 Status: F Source: [place] 9:10 AM [facility] REPOSITORY TYPE CODE TESTS RESULT OUT OF REFERENCE UNITS RANGE LAB L3100.9600 4.5-5.6 mg/dL High IONIZED CA 6.2 Performed By: #### L3100.9600 #### [facility] (refer to report for specific site) refer to report for address and phone number ABDOMEN/PELVIS WITH Observed: 02/14/2018 Status: F Source: [place] CONTRAST 12:49 PM [facility] REPOSITORY [facility] Imaging Services [address] [place] [address] Abdomen/Pelvis WITH Contrast MR#: [id number] Acct: [id number] Name: CORI CORRIGAN Rep #: [id number] : 1955 F 62 From: Denny Juarez MD PCP: Catina Tejada MD Status: REG CLI Study: Abdomen/Pelvis WITH Contrast Date of Exam: 02/14/18 Exam# [id number] Ordering Dr: Mukesh Martin MD STUDY: CT ABDOMEN AND PELVIS WITH CONTRAST REASON FOR EXAM: Female, 62 years old. Lymphadenopathy. RADIATION DOSAGE (If Supplied By Facility): CTDIvol = ( 12.95 ) mGy, DLP = ( 1143.26 ) mGycm TECHNIQUE: Transaxial images were obtained from the dome of the diaphragm to the symphysis pubis with oral contrast. 100 ml of Isovue 300 contrast was administered. Sagittal and coronal images were reconstructed. Individualized dose optimization techniques were used for this CT. COMPARISON: None. FINDINGS: There is a 1.7 cm x 1.2 cm enhancing nodular density in the deep inferior lateral aspect of the left breast. There is evidence of diffuse skin thickening of the visualized portion of the left breast. Bilateral pleural effusions moderate on the left small on the right with underlying infiltration and/or atelectasis more prominent on the left side. Atelectasis along the anterior medial aspect of the lingular segment of the left upper lobe. The visualized portions of the heart are within normal limits. Normal liver. Normal gallbladder and extrahepatic biliary system. Mild splenomegaly. There is a 1 cm x 2.4 cm linear hypodensity along the posterior lateral aspect of the midportion of the spleen. This may represent an old laceration. Clinical correlation is recommended. Normal pancreas. Normal bilateral adrenal glands. Normal right kidney. Normal left kidney. Normal visualized stomach. Normal small intestine. Normal colon. The appendix is visualized and appears normal. There is diffuse atherosclerotic calcification of the abdominal aorta, without a demonstrated aneurysm. Normal inferior vena cava. There is retroperitoneal lymphadenopathy with enlarged nodes greater than 10-15mm in the short axis. Multiple rounded soft tissue densities are seen in the pelvis sidewalls in keeping with enlarged adenopathy as well as iliac chain adenopathy. There is also evidence of enlarged bilateral inguinal lymph nodes worse on the left side. Is also evidence of lymphadenopathy within the root of the mesentery. Normal urinary bladder. Normal abdominal wall. Mild dextroscoliosis. CT/Abdomen/Pelvis WITH Contrast IMPRESSION: Diffuse retroperitoneal lymphadenopathy as well as pelvic lymphadenopathy. Lymph nodes are seen in both inguinal regions more prominent on the left side. Bilateral pleural effusions left greater than right with underlying atelectasis and/or infiltration. Left breast skin thickening with the 1.7 cm x 1.2 cm nodular density in the deep inferior lateral aspect of the left breast. Electronically Signed: Denny Juarez MD at 14:15 EDT Tel [phone], Service support , CC: Catina Tejada MD; Mukesh Martin MD Service Aide: Signed CHEST WITH CONTRAST Observed: 02/14/2018 Status: F Source: [place] 12:49 PM [facility] REPOSITORY [facility] Imaging Services [address] [place] [address] Chest WITH Contrast MR#: [id number] Acct: [id number] Name: CORI CORRIGAN Rep #: [id number] : 1955 F 62 From: Denny Juarez MD PCP: Catina Tejada MD Status: REG CLI Study: Chest WITH Contrast Date of Exam: 02/14/18 Exam# [id number] Ordering Dr: Mukesh Martin MD STUDY: CT CHEST WITH CONTRAST REASON FOR EXAM: Female, 62 years old. Lymphadenopathy. RADIATION DOSAGE (If Supplied By Facility): CTDIvol = ( 12.95 ) mGy, DLP = ( 1143.26 ) mGycm TECHNIQUE: Transaxial imaging was performed following intravenous administration of 100 ml of Isovue 300 contrast material. Multiplanar coronal and sagittal images were reformatted. Individualized dose optimization techniques were used for this CT. COMPARISON: None. FINDINGS: There is evidence of a bilateral supraclavicular lymphadenopathy worse on the left side. The largest measures 4.3 cm x 2.9 cm. This compresses the left lobe of the thyroid. There is also evidence of bilateral axillary lymphadenopathy worse on the left side. There is skin thickening of the left breast. There is a 1.7 cm x 1.2 cm nodule in the deep posterior lateral aspect of the left breast. Large left pleural effusion with mild loss in the right hemithorax. Small right pleural effusion. Normal heart and pericardium. Multiple mediastinal lymph nodes involving the anterior and middle mediastinum. There is evidence of a subcarinal lymphadenopathy as well as bilateral hilar lymphadenopathy. Normal enhanced pulmonary arteries. Normal aorta arch and descending thoracic aorta. There are multi-level degenerative changes of the thoracic spine. Increased kyphosis. Retroperitoneal lymphadenopathy. Periportal adenopathy. CT/Chest WITH Contrast IMPRESSION: Supraclavicular and bilateral axillary lymph nodes worse on the left side. Diffuse mediastinal and hilar lymphadenopathy with the bilateral pleural effusions left greater than right with atelectasis at the left lung base. Electronically Signed: Denny Juarez MD at 14:19 EDT Tel [phone], Service support , CC: Catina Tejada MD; Mukesh Martin MD Service Aide: Signed SURGERY VISIT REPORT Observed: 02/13/2018 Status: F Source: [place] 9:31 AM [facility] REPOSITORY [facility] [address] [place] [address] OFFICE VISIT Date of Service: 02/13/18 MR#: [id number] Acct: [id number] Name: CORI CORRIGAN Rep #: [id number] : 1955 Provider: Mukesh Martin MD Age/Sex: 62/F Location: [facility] Status: Signed Intake Intake Visit Reasons: US Mammotone bx- Left groin Chief Complaint: left groin mammotome bx Protection Consultant Required: No Is patient in pain?: No Allergies No Known Allergies Allergy (Verified 02/13/18 08:23) Medications aspirin 81 mg tablet,delayed release 81 mg PO DAILY 02/10/18 [History Confirmed 02/10/18] omega-3 fatty acids 1,000 mg capsule 1,000 mg PO DAILY 02/10/18 [History Confirmed 02/10/18] Is last menstrual period known: No Post menopausal: Yes Patient : No PFSH Medical History Constipation (Acute) Lymphadenopathy (Acute) Surgical History Hx of lymph node biopsy (Acute 02/2018) No history of previous surgery (Acute) Family History Father Arthritis Diabetes Heart disease Hypertension Kidney disease Stomach ulcer Sister Arthritis Diabetes Heart disease Hypertension Thyroid disorder Mother Breast cancer Cancer ovarian Brother Diabetes Hypertension Kidney disease Social History Smoking Status: Current every day smoker alcohol intake: never substance use type: does not use HPI HPI HPI: CORI CORRIGAN is a 62 F who presents to the office today for left groin mammotome biopsy to assist with diagnosis of generalized adenopathy Office Procedures Biopsy Provider Documentation Ultrasound-guided mammotome biopsy left groin adenopathy Timeout and informed consent was obtained. 62-year-old female was taken to procedure room placed on the table. She has adenopathy of the neck axilla and groins. The left groin was sterilely prepped draped. 1% lidocaine mixed 50-50 with 0.5% Marcaine was used as a local anesthetic. A total 10 cc was used. Under ultrasound guidance a small stab incision to created. A 10-gauge mammotome needle was advanced into a superficial lymph node. Multiple cores were obtained. A marking clip was left in position under ultrasound guidance. Pressure was held for hemostasis. She tolerated that procedure very well. The specimens were immediately transferred to formalin. No apparent complication and minimal blood loss. Mukesh Martin M.D., F.A.C.S. Alert Center Machine Set Up Operator Yes Biopsy Lymphnode Biopsy: 85778 Lymphnode w Needle (32485) [facility] Procedure Procedure Performed By: Procedure performed by: karen Details See biopsy note above Procedure Time Out Time Out Informed consent given: Yes Consent signed: Yes Time out checklist: patient, procedure, site marked/identified, positioning of patient, supplies available, allergies confirmed, team agrees on procedure Time out staff in room: Yes Time out verified: Yes Time out date: 02/13/18 Time out time: 08:27 Assessment AND Plan Problems 1. Generalized lymphadenopathy R59.1 Plan Successful left groin mammotome lymph node biopsy Plan CT scan of the chest and abdomen and pelvis Anticipate hematology oncology referral Patient has been instructed if she requires a port she may return for additional surgical treatment CC: Dr Catina Martin M.D., F.A.C.S. Orders Orders: Referrals: Coding Level of Care Code Attention Mei Diagnoses Generalized lymphadenopathy R59.1 Additional Codes Biopsy - Lymphnode Biopsy: 79761 Lymphnode w Needle (11864) Comment 52284 additional code 02/13/18 0931 <Electronically signed by Mukesh Martin MD> Date Mukesh Martin MD Cosigner Signature: Date (if applicable) CC: Catina Tejada MD MISCELLANEOUS SPECIMEN Observed: 02/13/2018 Status: F Source: [place] 12:00 AM [facility] REPOSITORY Patient: CORI CORRIGAN : 1955 (62/F) Acct Num: [id number] Phys: Veronica MATAMukesh Unit Num: [id number] Loc: [facility] Specimen: [id number] Received: 02/13/181054 Spec Type: MISC TISSUES 1 TISSUES: Inguinal region, NOS COMMENT Immunohistochemistry ([id number]) supports the above diagnosis. The lymphoma is positive for CD10, CD20, CD45, CD79a, Bcl2 and Bcl6. Clinical correlation is suggested. Case has been reviewed in consultation with Dr. Caceres who concurs with the above diagnosis. IDC:SJ GROSS DESCRIPTION Received in fixative is one container labeled with the patient's name and designated left groin. The specimen consists of multiple irregular fragments of yellow-benites soft tissue that in aggregate measure 2.2 x 2 x 0.2 cm. The specimen is totally submitted in one cassette. / AM:reno 02/13/18 TC:0 CPT: 78292 HEADER OPERATION: Left groin mammotome biopsy PRE-OP DIAGNOSIS: Left groin enlarged lymph node TISSUE SUBMITTED: Left groin tissue MICROSCOPIC DESCRIPTION Slides are reviewed. MICROSCOPIC DIAGNOSIS Left groin lymph node, core biopsy: Consistent with follicular center lymphoma, grade 3/3. AM:reno 02/14/18 Signed Anam [facility] 02/19/18 <signature on file> Performed By: #### PMISC #### [facility] [address] [place] [address]. [place], [address] IMMUNOHISTOCHEMISTRY Observed: 02/13/2018 Status: F Source: [place] 12:00 AM [facility] REPOSITORY Patient: CORI CORRIGAN : 1955 (62/F) Acct Num: [id number] Phys: Veronica MATA,Mukesh Unit Num: [id number] Loc: [facility] Specimen: [id number] Received: 02/14/181106 Spec Type: IMMUNO TISSUES 1 TISSUES: Inguinal region, NOS SPECIMEN INFORMATION: Tissue Source: Left groin tissue Clinical Info: Left groin enlarged lymph node Specimen Number: [id number] CPT code: 36657, 06134 x22 METHODOLOGY: Deparaffinized sections of prefer/formalin-fixed tissue or PAP/DQ stained slides are incubated with monoclonal/polyclonal antibodies/oligonucleotide probes. Localization is made via biotin free immunoperoxidase method. Appropriate controls are performed and reacted as expected. Results on target cell population are indicated in the following table: RESULTS: ANTIBODY / CLONE RESULT CD45 (RP2/18) positive AE1-3 (AE1/AE3/PCK26) negative S-100 (4C4.9) negative Vimentin (V9) positive P40 (BC28) negative P53 (DO-7) positive, rare Ki-67 (30-9) positive, low to moderate CD3 (PS1) negative CD5 (SP10) negative CD10 (56C6) positive CD15 (MMA) negative CD20 (L26) positive CD23 (1B12) negative CD30 (Constantino-H2) negative CD43 (L60) negative CD79a (11E3) positive CD138 (B-A38) negative BCL-2 (bcl-2/100/D5) positive BCL-6 (FQ781A/A8) positive Cyclin D1/BCL-1 (SP4) negative [place] (polyclonal) negative Lambda (polyclonal) negative MUM1 (MRQ-43) equivocal These tests were developed and their performance characteristics determined by [facility]. They may not have been cleared or approved by the U.S. Food and Drug Administration. The FDA has determined that such clearance or approval is not necessary. INTERPRETATION: Left groin tissue, core biopsy: Consistent with follicular center lymphoma, grade III/III. AM:reno 02/19/18 Case has been reviewed in consultation with Dr. Caceres who concurs with the above diagnosis. IDC: [facility] [address] [address] Signed Anam Heydi 02/19/18 <signature on file> Performed By: #### PIMM #### [facility] [address] [place] [address], [address] SURGERY VISIT REPORT Observed: 02/10/2018 Status: F Source: [place] 5:46 PM [facility] REPOSITORY [facility] [address] [place] [address]. [address] [place] [address] OFFICE VISIT Date of Service: 02/10/18 MR#: [id number] Acct: [id number] Name: CORI CORRIGAN Rep #: [id number] : 1955 Provider: Mukesh Martin MD Age/Sex: 62/F Location: [facility] Status: Signed Intake Vital Signs02/10/18 Height 5 ft 4 in 02/10/18 Weight: 180 lb Intake Visit Reasons: Lymphadenopathy [facility] US 01/31 Protection Consultant Required: No Is patient in pain?: No Allergies No Known Allergies Allergy (Unverified 02/10/18 15:02) Medications aspirin 81 mg tablet,delayed release 81 mg PO DAILY 02/10/18 [History Confirmed 02/10/18] omega-3 fatty acids 1,000 mg capsule 1,000 mg PO DAILY 02/10/18 [History Confirmed 02/10/18] [facility] Medical History Constipation (Acute) Lymphadenopathy (Acute) Surgical History No history of previous surgery (Acute) Family History Father Arthritis Diabetes Heart disease Hypertension Kidney disease Stomach ulcer Sister Arthritis Diabetes Heart disease Hypertension Thyroid disorder Mother Breast cancer Cancer ovarian Brother Diabetes Hypertension Kidney disease Social History Smoking Status: Current every day smoker alcohol intake: never substance use type: does not use HPI HPI HPI: CORI CORRIGAN, is a 62 F who presents to the office today for surgical consultation regarding adenopathy. The patient is referred by Dr Catina Tejada for surgical consultation regarding diffuse adenopathy and a written copy of my surgical consult recommendations will be returned to him. The patient states that in 2013 she had adenopathy of the right neck. She states that she had a biopsy and was told it was nothing. She states that the area mostly abated. She presented now complaining of right and left neck adenopathy. She seemed not to notice the bilateral axillary and bilateral groin adenopathy. She denies fever or chills or sweats or nausea or vomiting or unexpected weight loss. Upon questioning it seems apparent that her eldest brother may have had lymphoma. At the [facility] January 31 she had a superficial ultrasound of the neck. Markedly abnormal and bulky neck adenopathy suggestive of lymphoma or metastatic disease was identified. Tissue sampling was recommended. On January 31, 2018 she also had bilateral groin ultrasound showing multiple large lymph nodes largest on the right being 6 cm and the largest on the left 5.7 cm. The patient has been a ongoing almost lifelong cigarette smoker at the rate of at least a pack per day. On January 27, 2018 she had a PA and lateral chest x-ray. There is an elevated left hemidiaphragm with blunting of the left costophrenic angle. No mediastinal adenopathy. On January 27 her white count was 8.4 with a hemoglobin 14.6 and hematocrit of 43.6 and a platelet count of 180,000. 22% lymphocytes 61% neutrophils. BUN was 13 and creatinine 0.77. Liver panel was normal. ROS General General: No weight change, appetite, fatigue, colon cancer, breast cancer or weakness HEENT HEENT: Yes swollen glands; no difficulty swallowing, eye injury, eye surgery or hoarseness Endo Endocrine: No thyroid disease, diabetes mellitus, thyroid cancer, Hair loss, heat intolerance or cold intolerance Skin Skin: No rash or changing moles Breast Breast: No left breast lump, right breast lump, nipple discharge, breast pain, abnormal mammogram, abnormal US or breast enlargement Musc Musculoskeletal: No back problems, arthritis, rheumatoid arthritis, gout or joint pain Cardio Cardiovascular: No murmur, pacemaker, heart disease, atrial fibrillation, high blood pressure, heart attack, heart stent, palpitations, shortness of breat with exertion or chest pain Psych Psychiatric: No depression, anxiety or hearing voices Resp Respiratory: No shortness of breath, No sleep apnea, No cough, No COPD, No asthma, No emphysema, No wheezing Gastro Gastrointestinal: No abdominal pain, No nausea or vomiting, No diarrhea, Yes constipation, No blood in stool, No acid reflux, No hemorrhoids, No ulcers, No gallbladder problem, No black,tarry stools Rodger Hematologic: Yes blood thinners, No blood disorders, No bleeding, No anemia, No blood clots Neuro Neurologic: No system reviewed and no additional complaints, except as docu, No as per HPI, No abnormal walking, No abnormal hearing, No abnormal movements, No abnormal speech, No behavioral changes, No burning sensations, No confusion, No seizure-like activity, No unsteadiness, No dizziness, No localized weakness, No frequent falls, No headache(s), No lack of coordination, No loss of vision, No memory loss, No numbness, No other visual disturbances, No radiating pain, No restless legs, No sensory deficit, No fainting, No tingling, No tremor(s), No weakness, No other Exam Const General: cooperative, comfortable, no acute distress Nutritional Appearance: average body habitus Orientation: alert, awake, oriented x3 HENMT Other: Multiple fixed lymph nodes noted bilateral neck. Nontender Eyes General: appearance normal, both eyes and all related structures Chest Breast Palpation: No nipple discharge Other: Large fixed lymph nodes noted bilateral axilla Resp Effort AND Inspection: normal respiratory effort Auscultation: clear to auscultation bilaterally Cardio Rate: regular rate Rhythm: regular rhythm Heart Sounds: no murmurs GI Palpation: soft, no hepatosplenomegaly Other: Multiple enlarged bilateral groin nodes identified. Nontender Neuro General: CN's II-XI intact bilaterally Extrem General: no calf tenderness Psych Affect: normal affect Assessment AND Plan Problems 1. Generalized lymphadenopathy R59.1 Plan Findings are very much consistent with generalized lymphoma. I recommend patient a ultrasound large core mammotome biopsy. Believe that the left groin would be the safest approach. I discussed the technique, benefits, risks, alternatives. The patient has had an opting to ask and have questions answered. We will schedule and expedite her care. I very much appreciate the kind opportunity of assisting with her surgical management. Cc: Dr Catina Martin M.D., F.A.C.S. Coding Level of Care Code Detailed, Low Diagnoses Generalized lymphadenopathy R59.1 02/10/18 9526 <Electronically signed by Mukesh Martin MD> Date Mukesh Martin MD Cosigner Signature: Date (if applicable) CC: Catina Tejada MD CNPN Observed: 02/07/2018 Status: COMPLETED Source: [place] 12:00 AM [facility] REPOSITORY Telephone ([facility]OO[facility]) CORI CORRIGAN ([id number]) 1955 F Date Time Provider Department 02/07/18 MIRIAN SALAZAR ([facility]) [facility] During your visit today, we recorded the following information about you: Laura Kamara 02/07/2018 9:31 AM Signed Patient calling in requesting order be filed for Screening Mammogram. Patient wishes to schedule this with her annual appointment coming up on 02/12/18. Screening mammogram order has been pended. Please file order and route encounter back to scheduling pool so that we may contact patient to schedule mammogram. Laura Flores Wkvivianar Emma Little RN 02/07/2018 9:39 AM Signed Please file pended mammogram order. Emma Little RN Allergies As of Date: 02/07/2018 (No Known Allergies) Date Reviewed: 03/23/2015 Reviewed by: Natalie Jones LPN - Fully Assessed Reason for Visit: Orders [681] Primary Visit Diagnosis:Screening mammogram, encounter for [Z12.31] Order(s):CHESTER SCREENING [[id number]] Order #: [id number] FUTURE Prescriptions as of 02/07/2018 Sig: ASPIRIN 81 MG TABLET,DELAYED * Take 81 mg by mouth once hari* OMEGA-3 FATTY ACIDS-FISH OIL * Take by mouth. Problem List As Of Date: 02/07/2018 (None) Encounter Status:Closed by MIRIAN SALAZAR on 02/07/18 ABDOMEN LIMITED Observed: 01/31/2018 Status: F Source: [place] 7:40 AM [facility] REPOSITORY [facility] Imaging Services [address] [place] [address] Abdomen Limited MR#: [id number] Acct: [id number] Name: CORI CORRIGAN J Rep #: [id number] : 1955 F 62 From: Francheska Hwang PCP: Catina Tejada MD Status: REG CLI Study: Abdomen Limited Date of Exam: 01/31/18 Exam# [id number] Ordering Dr: Catina Tejada MD STUDY: SUPERFICIAL ULTRASOUND - LYMPHADENOPATHY. Bilateral groin. REASON FOR EXAM: Female, 62 years old. Lymphadenopathy. TECHNIQUE: A superficial ultrasound was performed with real- time and static deshpande-scale imaging. # of Images: 66 COMPARISON: None. FINDINGS: Right groin: Multiple enlarged lymph nodes are seen, largest 5 lymph nodes measure: 6.0 x 2.8 x 2.2 cm, 4.1 x 2.4 x 2.1 cm, 3.0 x 2.2 x 1.4 cm, 2.7 x 2.3 x 2.1 cm and 2.4 x 2.1 x 1.5 cm in size. Left groin: Multiple enlarged lymph nodes are seen, largest 5 lymph nodes measure: 5.7 x 2.5 x 2.2 cm, 4.4 x 2.9 x 2.0 cm, 3.1 x 3.0 x 2.5 cm and 1.9 x 1.8 x 1.4 cm in size. US/Abdomen Limited IMPRESSION: Bilateral inguinal lymphadenopathy. Electronically Signed: Henry Hwang MD at 10:14 EDT Tel , Service support , CC: Catina Tejada MD Service Aide: Signed HEAD/NECK SOFT TISSUE Observed: 01/31/2018 Status: F Source: [place] 7:40 AM [facility] Imaging Services [address] [place], [place] [address] [place] [address] Head/Neck Soft Tissue MR#: [id number] Acct: [id number] Name: CORI CORRIGAN Rep #: [id number] : 1955 F 62 From: Misbah Cordova DO PCP: Catina Tejada MD Status: REG CLI Study: Head/Neck Soft Tissue Date of Exam: 01/31/18 Exam# [id number] Ordering Dr: Catina Tejada MD STUDY: SUPERFICIAL ULTRASOUND - NECK REGION REASON FOR EXAM: Female, 62 years old. Bulky lymphadenopathy TECHNIQUE: A superficial ultrasound was performed with real- time and static deshpande-scale imaging. # of Images: 88 COMPARISON: None. FINDINGS: Imaging of the bilateral neck demonstrates numerous large and abnormal-appearing lymph nodes. Largest lymph node on the right measuring 2.0 x 2.1 x 1.4 cm with thick hypoechoic cortex and thin central hilum. On the left, largest lymph node measuring 2.6 x 1.7 x 1.2 cm. US/Head/Neck Soft Tissue IMPRESSION: Markedly abnormal and bulky neck lymphadenopathy suggestive of lymphoma or metastatic disease. Tissue sampling is recommended Electronically Signed: Misbah Cordova DO at 13:18 EDT Tel , Service support , CC: Catina Tejada MD Service Aide: Signed URINALYSIS, COMPLETE Collected: 01/27/2018 Status: F Source: [place] 11:06 AM [facility] REPOSITORY Order Comment: How was Urine Obtained? CLEAN CATCH TYPE CODE TESTS RESULT OUT OF RANGE REFERENCE UNITS LAB L400.3000 Yellow COLOR Normal Yellow LAB L400.3050 Clear Normal CLARITY Sl. Cloudy LAB L400.3200 Normal mg/dl Normal GLUCOSE, UR Normal LAB L400.3300 Negative mg/dL Normal BILIRUBIN URINE Negative LAB L400.3400 Negative mg/dl Normal KETONE UR Negative LAB L400.3465 1.002-1.030 Normal SP.GR. DIPSTX 1.015 LAB L400.3550 5.0 - 8.0 pH UR Normal 6.0 LAB L400.3600 Negative mg/dl High PROT 30 DIPSTX LAB L400.3700 Normal mg/dl Normal UROBILI Normal LAB L400.3750 Negative Normal NITRITE UR Negative LAB L400.3780 Negative /ul Normal OCCULT BLOOD-UR Negative LAB L400.3800 Negative /ul High LEUK 25 ESTERASE LAB L400.4050 0-5 /hpf WBC Normal 0-5 SEEN LAB L400.4100 0-5 /hpf 0 Normal RBC-UA SEEN LAB L400.4150 5-10 /hpf SQUAM Normal EPI 0-5 SEEN LAB L400.4300 None Seen /hpf 1+ Normal BACTERIA LAB L400.4350 <or=2+ /hpf 0 Normal MUCUS, URINE SEEN LAB L400.4400 0-5 /lpf Normal HYALINE CAST 0-5 SEEN Performed By: #### L400.0001 #### [facility] [address] [place], [address] CBC W/DIFF, AUTOMATED Collected: 01/27/2018 Status: F Source: [place] 11:06 AM [facility] RE[facility] TYPE CODE TESTS RESULT OUT OF RANGE REFERENCE UNITS LAB L100.1000 4.4-11.0 K/mm3 Normal WBC 8.4 LAB L100.1200 4.2-5.4 M/mm3 Normal RBC 4.84 LAB L100.1300 12.0-15.0 g/dl Normal HGB 14.6 LAB L100.1400 37-47 % Normal HCT 43.6 LAB L100.1500 81-99 fL Normal MCV 90.1 LAB L100.1600 27.0-32.0 pg Normal MCH 30.2 LAB L100.1700 32-36 g/gl Normal MCHC 33.5 LAB L100.1810 11.6-14.6 % High RDW CV 15.9 LAB L100.1820 35.1-43.9 fl High RDW SD 51.8 LAB L100.1900 150-450 K/mm3 Normal PLT 180 LAB L100.2000 6.2-12.0 fl High MPV 13.5 LAB L100.2100 47-70 % Normal NEUT% 61.3 LAB L100.2200 19-41 % Normal LY% 22.9 LAB L100.2300 0-10 % High MONO% 14.5 LAB L100.2400 0-5 % Normal EO% 0.6 LAB L100.2500 0-1 % Normal BASO% 0.5 LAB L100.2550 0.0-0.9 % Normal IM GRAN % 0.200 Result Comment: IG% - Immature Granulocytes (promyelocytes, myelocytes and metamyelocytes) > 1% indicates that a LEFT SHIFT is Present. LAB L100.2620 2.0-7.7 X10 3/uL Normal Absolute Neut 5.1 LAB L100.2720 0.83-4.51 X10 3/ul Normal Absolute Lymph 1.92 Performed By: #### L100.0100, L500.4050 #### [facility] [address] [place], [place], [address] COMPREHENSIVE METABOLIC Collected: 01/27/2018 Status: F Source: [facility] 11:06 AM [facility] REPOS[facility] TYPE CODE TESTS RESULT OUT OF RANGE REFERENCE UNITS LAB L501.0100 74-106 mg/dL Normal GLU 83 Result Comment: Please note revised GLUCOSE reference range effective 2017. LAB L501.1000 7-18 mg/dL Normal BUN 13 LAB L501.1100 0.55-1.02 mg/dL Normal CREAT,SERUM 0.77 Result Comment: The validity of the calculated GFR AND GFRAA in patients over 70 years has not been determined. Clinical correlation is essential. LAB L501.1110 >60 mL/min Normal EST GFR 80 Result Comment: Non- GFR Calc LAB L501.1115 >60 mL/min Normal EST GFR - AA 96 Result Comment: GFR Calc LAB L501.1300 10-20 RATIO Normal BUN/CRE 16.8 LAB L501.1500 6.4-8.2 g/dL T Normal PROT 8.1 LAB L501.1800 3.2-5.0 g/dL Normal ALB 4.1 LAB L501.1950 2.2-4.2 g/dL Normal GLOB 4.0 LAB L501.2000 0.9-2.4 RATIO Normal A/G 1.0 LAB L501.2200 8.5-10.1 mg/dL High CA 11.0 LAB L501.4100 15-37 U/L High AST 41 LAB L501.4305 45-117 U/L Normal ALK P 93 LAB L501.4405 13-56 U/L Normal ALT 33 LAB L501.4600 0.20-1.00 mg/dL T Normal BILI 0.50 LAB L501.5300 136-145 mmol/L NA Normal 136 LAB L501.5600 3.5-5.1 mmol/L K Normal 4.4 LAB L501.5900 98-107 mmol/L CL Normal 103 LAB L501.6100 21.0-32.0 mmol/L Normal CO2 23.0 LAB L501.6200 5-15 Normal GAP 10 Performed By: #### L100.0100, L500.4050 #### [facility] [address] [place], [address] CHEST PA AND LATERAL Observed: 01/27/2018 Status: F Source: [place] 11:05 AM [facility] Imaging Services [address] [place] [address] Chest PA and Lateral MR#: [id number] Acct: [id number] Name: CORI CORRIGAN Rep #: [id number] : 1955 F 62 From: Misbah Cordova DO PCP: Catina Tejada MD Status: REG CLI Study: Chest PA and Lateral Date of Exam: 01/27/18 Exam# [id number] Ordering Dr: Catina Tejada MD STUDY: X-RAY CHEST REASON FOR EXAM: Female, 62 years old. Lymphadenopathy TECHNIQUE: PA and lateral views of the chest. COMPARISON: None. FINDINGS: The lungs are adequately inflated and clear. Mildly elevated left hemidiaphragm with blunting of the left costophrenic angle. There is borderline cardiomegaly. Normal mediastinum and alex. Normal visualized pulmonary arteries. Normal visualized aortic arch and descending thoracic aorta. Normal visualized thoracic spine. Normal visualized ribs, clavicles, and shoulders. There is no demonstrated abnormality of the visualized soft tissue structures of the upper abdomen. RAD/Chest PA and Lateral IMPRESSION: Elevated left hemidiaphragm with blunting of the left costophrenic angle. No evidence of acute airspace disease. No evidence of bulky lymphadenopathy. Electronically Signed: Misbah Cordova DO at 10:05 EDT Tel , Service support , CC: Catina Tejada MD Service Aide: Signed ALLERGIES ALLERGIES DATE TYPE / CODE NAME / CODE REACTION SEVERITY SOURCE 03/24/2018 Drug No Known Unknown Caitlin [facility] Allergy/4160 Allergies/F00 Hospital 57869(SNOMED 0255608(RXNOR Repository CT) M) ENCOUNTERS ENCOUNTERS ADMIT/DISCHARGE ACCOUNT ADMITTING ENCOUNTER LOCATION SOURCE NUMBER CLASS 03/26/2018 [id number] Ambulatory [place] Slinger 3 [facility] ing:CVS Repository 03/26/2018 [id number] Ambulatory Caitlin Caitlin 9 [facility] ing:ONC Repository 03/24/2018 [id number] [facility] [place] [facility] 03/24/2018 [id number] Ambulatory [facility]B [place] 4 [facility] Repository 03/17/2018/ [id number] Apolonia Moe Inpatient S[place] S[place] 8 8 [place] Encounter [facility] ing:PCURoom: Repository [id number]: 1 03/17/2018 [id number] Apolonia Moe Ambulatory BMSBuilding:B [place] 4 [place].[facility] Repository 03/17/2018 [id number] Ambulatory BMSBuilding:W Caitlin 0 [facility] Repository 03/17/2018 [id number] Apolonia Moe Ambulatory BMSBuilding:B [place] 1 [place].On license of [facility] Repository 03/17/2018 [id number] Apolonia Moe Ambulatory BMSBuilding:B [place] 9 [place] [facility] 03/17/2018 [id number] Apolonia Moe Ambulatory BMSBuilding:B S[place] 7 [place].On license of [facility] Repository 03/17/2018 [id number] Apolonia Moe Ambulatory BMSBuilding:B Slinger 6 [place] MS.CF.[facility] Repository 03/17/2018 [id number] Abhi, Apolonia Ambulatory BMSBuilding:B Slinger 6 [place] MS.[facility] Hospital Repository 03/17/2018 [id number] Abhi, Apolonia Ambulatory BMSBuilding:B Caitlin 0 [place] MS.On license of [facility] Repository 03/17/2018 [id number] Abhi, Apolonia Ambulatory BMSBuilding:B Caitlin 5 [place].CF.[facility] Repository 03/14/2018 [id number] Ambulatory BMSBuilding:B [place] 3 [facility] Repository 03/14/2018/ [id number] Ambulatory Slinger Caitlin 8 5 [facility] Hospital ing:SDCRoom: Repository [facility] 03/13/2018 [id number] Ambulatory BMS[facility]:B [place] 4 [facility] Repository 03/07/2018 [id number] Ambulatory Slinger Caitlin 1 [facility] Hospital ing:CVS Repository 03/07/2018 [id number] Ambulatory BMSBuilding:W Caitlin 2 [facility] Repository 03/04/2018 [id number] Ambulatory Caitlin Caitlin 5 [facility] Hospital ing:CVS Repository 03/03/2018 [id number] Ambulatory Caitlin Caitlin 7 [facility] Hospital ing:OPBI Repository 02/25/2018 [id number] Ambulatory BMSBuilding:B [place] 8 [facility] Repository 02/25/2018/ [id number] Ambulatory BMSBuilding:B [place] 8 0 [facility] 02/18/2018 [id number] Ambulatory Slinger Caitlin 3 [facility] Hospital ing:MFPLAB Repository 02/14/2018 [id number] Ambulatory Caitlin Slinger 6 [facility] Hospital ing:CT Repository 02/13/2018 [id number] Ambulatory Slinger Caitlin 7 [facility] Hospital ing:LABSPEC Repository 02/13/2018/ [id number] Ambulatory BMSBuilding:B Caitlin 8 0 [facility] Repository 02/11/2018 [id number] Ambulatory Caitlin Slinger 2 [facility] ing:OPUS Repository 02/10/2018/ [id number] Ambulatory BMSBuilding:B [place] 8 [facility] 01/31/2018 [id number] Ambulatory Slinger Caitlin 8 [facility] ing: Repository 01/27/2018 [id number] Ambulatory Slinger Caitlin 9 [facility] PAYERS PAYERS ENCOUNTER GUARANTOR PAYER SUBSCRIBER SOURCE 03/26/2018 CORI Higgins Primary CORI Tucker [id number] Insurance:CARESOURCE FORTNERDOB: [facility] [address] Number: Repository [address]Rof: 330 [id number] [phone] () Date:8254-01-68MO[address] [address]HB: 03/26/2018 Secondary NOT GIVENUNK Slinger Insurance:SELF PAY [facility] Number: Effective Repository Date:2018-03-26 03/26/2018 BARON Primary CORI Tucker [id number] Insurance:CARESOURCE FORTNERDOB: [facility] [address] Number: Repository [address]Jlx: 330 [id number] [phone] (HP) Date:0033-64-68IS[address] [address]PG: 03/26/2018 Secondary NOT GIVENUNK Slinger Insurance:SELF PAY [facility] Number: Effective Repository Date:2018-02-20 03/24/2018 BARON Primary CORI Tucker [id number] Insurance:CARESOURCE FORTNERDOB: [address] Number: Repository [address]Hrm: 330 [id number] [phone] (HP) Date:0198-20-54VZ [address] [address]BX: 03/24/2018 Secondary NOT GIVENUNK Caitlin Insurance:SELF PAY [facility] Number: Effective Repository Date:2018-03-24 03/24/2018 BARON Primary CORI Tucker [id number] Insurance:CARESOURCE FORTNERDOB: Community [facility] [place] [address]45614-07-[address], [place] Number: Repository [address]Vcw: 330 [id number] [phone] (HP) Date:2175-93-98CN [address] [address]AF: 03/24/2018 Secondary NOT GIVENUNK S[place] Insurance:SELF PAY [facility] Number: Effective Repository Date:2018-03-24 03/17/2018 BARON Primary CORI Tucker [id number] Insurance:CARESOURCE FORTNERDOB: [facility] [place] 045614-07-23[place], [place] Number: Repository [address]Iec: 330 [id number] [phone] () Date:3042-73-08PW [address] [address]KH: 03/17/2018 Secondary NOT GIVENUNK Slinger Insurance:SELF PAY [facility] Number: Effective Repository Date:2018-03-17 03/17/2018 BARON Primary CORI Higgins Slinger [id number] Insurance:CARESOURCE FORTNERDOB: [facility] [address] Number: Repository [address]Iag: 330 [id number] [phone] (HP) Date:1913-80-84RQ [address] [address]TL: 03/17/2018 Secondary NOT GIVENUNK Slinger Insurance:SELF PAY [facility] Number: Effective Repository Date:2018-03-17 03/17/2018 BARON Primary CORI Higgins Caitlin [id number] Insurance:CARESOURCE FORTNERDOB: Community [facility] JUST FOR [facility] [place] Number: Repository [address]Wfy: 330 [id number] [phone] (HP) Date:9832-25-64KK [address] [address]XW: 03/17/2018 Secondary NOT GIVENUNK Caitlin Insurance:SELF PAY [facility] Number: Effective Repository Date:2018-03-17 03/17/2018 BARON Primary BARON Slinger [id number] Insurance:CARESOURCE FORTNERDOB: Community [facility] [place] [id number] Number: Repository [address]Erv: 330 [id number] [phone] (HP) Date:2854-86-57WZ [address] [address]BP: 03/17/2018 Secondary NOT GIVENUNK Caitlin Insurance:SELF PAY [facility] Number: Effective Repository Date:2018-03-17 03/17/2018 BARON Primary BARON Slinger [id number] Insurance:CARESOURCE FORTNERDOB: [facility] JUST FOR [address]07[address], [place] Number: Repository [address]Htd: 330 [id number] [phone] (HP) Date:0354-91-70QE [address] [address]EX: 03/17/2018 Secondary NOT GIVENUNK Caitlin Insurance:SELF PAY [facility] Number: Effective Repository Date:2018-03-17 03/17/2018 BARON Primary BARON Slinger [id number] Insurance:CARESOURCE FORTNERDOB: Community [facility] JUST [place] [id number] Number: Repository [address]Zng: 330 [id number] [phone] (HP) Date:1364-73-23BJ [address] [address]IG: 03/17/2018 Secondary NOT GIVENUNK S[place] Insurance:SELF PAY [facility] Number: Effective Repository Date:2018-03-17 03/17/2018 CORI Higgins Primary CORI Tucker [id number] Insurance:CARESOURCE FORTNERDOB: Community [facility] [place] [id number] Number: Repository [address]Hfa: 330 [id number] [phone] (HP) Date:2136-38-04OR [address] [address]BP: 03/17/2018 Secondary NOT GIVENUNK Caitlin Insurance:SELF PAY [facility] Number: Effective Repository Date:2018-03-17 03/17/2018 BARON Primary CORI Tucker [id number] Insurance:CARESOURCE FORTNERDOB: [facility] JUST [address]07[address], [place] Number: Repository [address]Uui: 330 [id number] [phone] () Date:6986-48-84SW [address] [address]JN: 03/17/2018 Secondary NOT GIVENUNK Slinger Insurance:SELF PAY [facility] Number: Effective Repository Date:2018-03-17 03/17/2018 BARON Primary CORI Higgins Slinger [id number] Insurance:CARESOURCE FORTNERDOB: [facility] JUST [place] 859934-07-23[place], [place] Number: Repository [address]San: 330 [id number] [phone] () Date:4078-61-54HA [address] [address]VH: 03/17/2018 Secondary NOT GIVENUNK Caitlin Insurance:SELF PAY [facility] Number: Effective Repository Date:2018-03-17 03/17/2018 BARON Primary CORI Higgins Caitlin [id number] Insurance:CARESOURCE FORTNERDOB: [facility] [address]07[address], [place] Number: Repository [address]Uye: 330 [id number] [phone] (HP) Date:6619-06-16[place] [address] [address]OX: 03/17/2018 Secondary NOT GIVENUNK Slinger Insurance:SELF PAY [facility] Number: Effective Repository Date:2018-03-17 03/14/2018 BARON Primary BARON Slinger [id number] Insurance:CARESOURCE FORTNERDOB: Community [facility] JUST FOR [facility] 4239-94-[place]QVUM[place]ic[place], [place] Number: Repository [address]Mvk: 330 [id number] [phone] (HP) Date:0533-11-74DD [address] [address]VB: 03/14/2018 Secondary NOT GIVENUNK Caitlin Insurance:SELF PAY [facility] Number: Effective Repository Date:2018-03-14 03/14/2018 BARON Primary BARON Slinger [id number] Insurance:CARESOURCE FORTNERDOB: Community [facility] JUST FOR [facility] 4747-65-89DFBMonticello, [place] Number: Repository [address]Arz: 330 [id number] [phone] () Date:8788-28-91AK [address] [address]FB: 03/14/2018 Secondary NOT GIVENUNK Slinger Insurance:SELF PAY [facility] Number: Effective Repository Date:2018-03-12 03/13/2018 BARON Primary BARON Caitlin [id number] Insurance:CARESOURCE FORTNERDOB: Community [facility] JUST [facility] 4571-72-02[place]HT[place], [place] Number: Repository [address]Urd: 330 [id number] [phone] (HP) Date:0947-96-73KM [address] [address]GN: 03/13/2018 Secondary NOT GIVENUNK Caitlin Insurance:SELF PAY [facility] Number: Effective Repository Date:2018-03-13 03/07/2018 BARON Primary CORI Tucker [id number] Insurance:CARESOURCE FORTNERDOB: Community [facility] JUST FOR [facility] 3398-55-98YNIM[place], [place] Number: Repository [address]Grp: 330 [id number] [phone] () Date:1083-37-49NN [address] [address]HN: 03/07/2018 Secondary NOT GIVENUNK Caitlin Insurance:SELF PAY [facility] Number: Effective Repository Date:2018-02-25 03/07/2018 BARON Primary CORI Tucker [id number] Insurance:CARESOURCE FORTNERDOB: [facility] JUST [facility] 8602-15-53[place]IX[place], [place] Number: Repository [address]Jst: 330 [id number] [phone] (HP) Date:7981-35-84VG [address] [address]RI: 03/07/2018 Secondary NOT GIVENUNK Caitlin Insurance:SELF PAY [facility] Number: Effective Repository Date:2018-03-07 03/04/2018 BARON Primary CORI Tucker [id number] Insurance:CARESOURCE FORTNERDOB: [facility] [id number], [place] Number: Repository [address]Zrv: 330 [id number] [phone] (HP) Date:4001-55-06VI [address] [address]JL: 03/04/2018 Secondary NOT GIVENUNK Caitlin Insurance:SELF PAY [facility] Number: Effective Repository Date:2018-03-04 03/03/2018 BARON Primary CORI Higgins Caitlin [id number] Insurance:CARESOURCE FORTNERDOB: [facility] [place] 045614-07-23[place], [place] Number: Repository [address]Tph: 330 [id number] [phone] (HP) Date:0549-79-50SH [address] [address]LP: 03/03/2018 Secondary NOT GIVENUNK Caitlin Insurance:SELF PAY [facility] Number: Effective Repository Date:2018-02-25 02/25/2018 BARON Primary CORI Higgins Caitlin [id number] Insurance:CARESOURCE FORTNERDOB: Community [facility] JUST FOR [place] [id number], [place] Number: Repository [address]Oni: 330 [id number] [phone] (HP) Date:2067-02-69UM [address] [address]UN: 02/25/2018 Secondary NOT GIVENUNK Caitlin Insurance:SELF PAY [facility] Number: Effective Repository Date:2018-02-25 02/25/2018 BARON Primary CORI Higgins Slinger [id number] Insurance:CARESOURCE FORTNERDOB: Community [facility] [place] 045614-07-23[place], [place] Number: Repository [address]Pmx: 330 [id number] [phone] () Date:5525-74-79KS [address] [address]DF: 02/25/2018 Secondary NOT GIVENUNK Slinger Insurance:SELF PAY [facility] Number: Effective Repository Date:2018-02-25 02/18/2018 BARON Primary BARON Slinger [id number] Insurance:CARESOURCE FORTNERDOB: [facility] 2079-23-17ODNMontic[place], [place] Number: Repository [address]Gtc: 330 [id number] [phone] (HP) Date:8635-61-28UK [address] [address]KW: 02/18/2018 Secondary NOT GIVENUNK Slinger Insurance:SELF PAY [facility] Number: Effective Repository Date:2018-02-18 02/14/2018 BARON Primary BARON Caitlin [id number] Insurance:CARESOURCE FORTNERDOB: Community [facility] JUST FOR [facility] 5303-32-30VSGMonticello, [place] Number: Repository [address]Ldw: 330 [id number] [phone] (HP) Date:4747-85-93FH [address] [address]YL: 02/14/2018 Secondary NOT GIVENUNK Slinger Insurance:SELF PAY [facility] Number: Effective Repository Date:2018-02-13 02/13/2018 BARON Primary CORI Tucker [id number] Insurance:CARESOURCE FORTNERDOB: [facility] JUST [place] 859934-07-23[place], [place] Number: Repository [address]Otf: 330 [id number] [phone] (HP) Date:5479-00-45HV [address] [address]DG: 02/13/2018 Secondary NOT GIVENUNK Caitlin Insurance:SELF PAY [facility] Number: Effective Repository Date:2018-02-13 02/13/2018 BARON Primary CORI Tucker [id number] Insurance:CARESOURCE FORTNERDOB: [facility] JUST [address]07[address]23[place], [place] Number: Repository [address]Ldh: 330 [id number] [phone] (HP) Date:5820-40-94VB [address] [address]KZ: 02/13/2018 Secondary NOT GIVENUNK Caitlin Insurance:SELF PAY [facility] Number: Effective Repository Date:2018-02-13 02/11/2018 BARON Primary CORI Tucker [id number] Insurance:CARESOURCE FORTNERDOB: Community [facility] JUST [place] 859934-07-23[place], [place] Number: Repository [address]Cvl: 330 [id number] [phone] (HP) Date:4116-01-31UT [address] [address]JQ: 02/11/2018 Secondary NOT GIVENUNK S[place] Insurance:SELF PAY [facility] Number: Effective Repository Date:2018-02-07 02/10/2018 CORI Higgins Primary CORI Tucker [id number] Insurance:CARESOURCE FORTNERDOB: Community [facility] JUST FOR [facility] 7934-93-[place] Number: Repository [address]Ais: 330 [id number] [phone] (HP) Date:3465-06-37CZ [address] [address]MW: 02/10/2018 Secondary NOT GIVENUNK Caitlin Insurance:SELF PAY [facility] Number: Effective Repository Date:2018-02-07 01/31/2018 CORI Higgins Primary CORI Tucker [id number] Insurance:CARESOURCE FORTNERDOB: Community [facility] [id number] Number: Repository [id number]: 330 [id number] [phone] (HP) Date:[id number] [address] [id number]: 01/31/2018 Secondary NOT GIVENUNK Slinger Insurance:SELF PAY [facility] Number: Effective Repository Date:2018-01-27 01/27/2018 CORI AGUIRRE Primary CORI Tucker [id number] Insurance:CARESOURCE FORTNERDOB: [facility] [id number] Number: Repository [id number]: 330 [id number] [phone] (HP) Date:[id number] [address] [address]TK: 01/27/2018 Secondary NOT GIVENUNK Slinger Insurance:SELF PAY [facility] Number: Effective Repository Date:2018-01-27
== END 2018-03-14 13:00 | disposition home or self-care (01) ==
LOC: SDC 08:50 → AC 08:52
PROVIDERS: Family Provider Family Medicine; PCP Family Medicine; Referring Provider Surgery; Visit Provider Surgery
PROC: (CPT 36561; principal; 2018-03-14 10:45)
DX: C82.28 Follicular lymphoma grade III, unspecified, lymph nodes of multiple sites (principal); F17.200 Nicotine dependence, unspecified, uncomplicated; Z79.82 Long term (current) use of aspirin
CPT/HCPCS: 36561; 71045; 77001; 93005; J7120

== ENCOUNTER 2018-03-17 14:55 | Inpatient (IN) | payer OTHER, SELFPAY ==
[2018-03-14 09:34] VITALS: BMI 31.7
[2018-03-17] VITALS (8 sets, daily range): BP systolic 128–137; BP diastolic 74–86; PULSE 78–94; RESP 18–30; TEMP 36.3–36.8; O2SAT 92–96; BMI 31.8
--- NOTE | 2018-03-17 15:46 | RAD_ITS ---
STUDY: X-RAY CHEST REASON FOR EXAM: Female, 62 years old. SOB, dyspnea. Recent lymphoma diagnosis. TECHNIQUE: PA and lateral chest. COMPARISON: 03/14/2018. FINDINGS: There is a large left pleural effusion, increased compared to the prior study. Right Port-A-Cath is unchanged in position. Normal mediastinum and alex. There is a mild thoracic levoscoliosis. Normal visualized ribs, clavicles, and shoulders. There is no demonstrated abnormality of the visualized soft tissue structures of the upper abdomen. RAD/Chest PA and Lateral IMPRESSION: Large left pleural effusion, otherwise unremarkable. Electronically Signed: Mariama Saha MD at 16:32 EST Tel , Service support ,
--- NOTE | 2018-03-17 16:30 | EKG12_ITS ---
Test Reason : SOB Blood Pressure : / mmHG Vent. Rate : 075 BPM Atrial Rate : 075 BPM P-R Int : 128 ms QRS Dur : 076 ms QT Int : 392 ms P-R-T Axes : 023 014 136 degrees QTc Int : 437 ms Normal sinus rhythm Low voltage QRS Nonspecific T wave abnormality Abnormal ECG Confirmed by ROCIO MATA, TONY ([id number]), editor greeting card KENNY CANDELARIO ([id number]) on 03/20/2018 1:39:07 PM Referred By: Apolonia Moe Confirmed By:TONY CHAN MD
[2018-03-17 17:15] LABS: Absolute Lymphocyte Count 0.93 X10^3/ul (0.83-4.51); Absolute Neutrophil Count 7.1 X10^3/uL (2.0-7.7); Basophil# 0.02 X10^3/uL; Basophil% 0.2 % (0-1); Eosinophil# 0.01 X10^3/uL; Eosinophils% 0.1 % (0-5); Hematocrit 41.6 % (37-47); Hemoglobin 13.7 g/dl (12.0-15.0); Lymphocyte # 0.93 X10^3/ul (4.0); Lymphocyte % 10.1 % (19-41); Mean Corp Hgb Conc 32.9 g/gl (32-36); Mean Corpuscular Hgb 29.5 pg (27.0-32.0); Mean Corpuscular Volume 89.7 fL (81-99); Mean Platelet Vol. 12.6 fl (6.2-12.0); Monocyte# 1.14 X10^3/uL; Monocyte% 12.4 % (0-10); Neutrophil # 7.09 X10^3/uL (2.7-7.7); Platelet Count 210 K/mm3 (150-450); RBC Distribution Width CV 15.1 % (11.6-14.6); RBC Distribution Width SD 48.6 fl (35.1-43.9); Red Blood Count 4.64 M/mm3 (4.2-5.4); White Blood Count 9.2 K/mm3 (4.4-11.0)
[2018-03-17 17:16] LABS: POSITIVE COUNT NO; POSITIVE DIFFERENTIAL NO; POSITIVE MORPHOLOGY NO
[2018-03-17 17:42] LABS: AST(SGOT) 45 U/L (15-37); Alanine Aminotransfer ALT/SGPT 22 U/L (13-56); Albumin, Serum 3.6 g/dL (3.2-5.0); Alkaline Phosphatase 73 U/L (45-117); Anion Gap 8 (5-15); BUN 13 mg/dL (7-18); Bilirubin, Direct 0.19 mg/dL (0.00-0.30); Calcium,Total 9.9 mg/dL (8.5-10.1); Chloride 99 mmol/L (98-107); Creatinine, Serum 0.59 mg/dL (0.55-1.02); EST Glomerular Filtration Rate 109 mL/min (>60); Est Glom Filt Rate - Afr Amer 131 mL/min (>60); Estimated Creatinine Clearance 79.69 ml/min; Globulin 3.4 g/dL (2.2-4.2); Glucose 95 mg/dL (74-106); Potassium 3.9 mmol/L (3.5-5.1); Sodium Level 135 mmol/L (136-145)
--- NOTE | 2018-03-17 17:43 | ED.RN ---
critical troponin level 3.[address] Lacy notified, no new orders
--- NOTE | 2018-03-17 17:49 | CT_ITS ---
STUDY: CTA CHEST REASON FOR EXAM: Female, 62 years old. SOB. RADIATION DOSAGE (If Supplied By Facility): CTDIvol = ( 11.36 ) mGy, DLP = ( 250.42 ) mGycm TECHNIQUE: The examination was performed with the intravenous administration of 100 ml of Isovue 370 contrast material. Post-processing of the angiographic images was performed, with multiplanar reformation and 3D reconstruction. Individualized dose optimization techniques were used for this CT. COMPARISON: 02/14/2018. FINDINGS: The heart and pericardium are normal. The aorta is normal in caliber, with no aneurysm or dissection. There is no evidence of pulmonary embolus. Pulmonary arteries are unremarkable. Port-A-Cath is identified on the right, terminating in the superior vena cava. There is moderate mediastinal adenopathy. There is moderate to marked axillary adenopathy bilaterally. There is a large left pleural effusion and a moderate right effusion. There is compressive atelectasis of the left lung. Visualized abdomen is unremarkable. There is no osseous abnormality. CT/CTA Chest W/WO Contrast IMPRESSION: 1. No evidence of pulmonary embolus or aortic dissection. 2. Moderate to large bilateral pleural effusions. No change from the prior study. 3. Moderate to marked mediastinal and axillary adenopathy. No change from prior. Electronically Signed: Mariama Saha MD at 19:07 EST Tel , Service support ,
--- NOTE | 2018-03-17 19:20 | ED.VISSUMM ---
- ER Visit Summary Date of Service: 03/17/18 Chief Complaint: Shortness of breath History of Present Illness: The patient is a 62 F who presents with shortness of breath that started 2-3 days ago. Shortness of breath is continuous. It is worse with exertion. She also complains of bilateral upper back pain yesterday that was significant with increased shortness of breath. She denied diaphoresis or nausea. She recently had a venous duplex ultrasound of her lower extremities and rule out DVT. She was diagnosed 1 month ago with lymphoma. She had a port placed by Dr. Ortiz last Beck. She does report weight loss. She does report palpitations/rapid heart rate. She also reports generalized weakness. Review of systems otherwise negative. Physical Examination: Vital signs remarkable for a heart rate of 90 and respiratory of 30. BMI is 32. Saturation 93% on room air. She appears pale. Head is atraumatic normocephalic. Pupils are equal round reactive. Extraocular muscles are intact. TMs are pearly white with landmarks noted. Nares patent with no drainage. Posterior pharynx without erythema or exudate. Uvula is midline. There is no dysphonia or dysphasia. Trachea is midline. There is no stridor with auscultation of the neck. Heart is regular without murmur, gallop or rub. Absent breath sounds on the left. Abdomen soft nontender. There is edema of both the right and left lower extremity. Neuro exam is nonfocal. Affect is normal. Test Results: Chest x-ray reveals a significant effusion on the left. CBC is unremarkable. BMP is normal. Hepatic is unremarkable. Troponin is elevated at 3.44. CTA of the chest reveals large pleural effusion without evidence of pulmonary embolus Emergency Department Course and Treatment: With absent breath sounds on the left chest x-ray is obtained to evaluate for malignant effusion versus pneumothorax versus other cause. CBC, electrolyte panel and hepatic profile were obtained since she has stage III follicular lymphoma. If chest x-ray is unremarkable will need to consider pulmonary embolus since she has active cancer and recent surgery. Because of the bilateral upper back/shoulder pain with dyspnea need to rule out atypical presentation for coronary artery disease. Treatment Plan: Patient's troponins elevated 3.44. Would not expect significant increase with pulmonary embolus. However since she has multiple risk factors and initial consideration was for pulmonary embolus will obtain CTA. She was treated with aspirin and Lovenox. We will also applied Nitropaste. Disposition: PCU full admission Impression: Non-ST elevation NE Left malignant pleural effusion Stage III follicular lymphoma This note was generated with [employer] dictation software. It may contain incorrect words, spelling, and punctuation that were not noted in review of the chart prior to signing ED Disposition - Plan for ED Patient: Chief Complaint: Shortness of Breath Referrals: Michael Tanner MD [Primary Care Provider] -
--- NOTE | 2018-03-17 19:53 | PCM.HP.STD ---
History of Present Illness Date of Admission: 03/17/18 Chief Complaint: shortness of breath The patient is a 62 year old F past medical history of recently diagnosed follicular lymphoma and hypertension. She was admitted through the ED on 04-01 with a complaint of worsening shortness of breath for the past 2 weeks. She had associated orthopnea and exertional dyspnea. Symptoms worsen and so she decided to come to the ED. She was recently diagnosed with follicular lymphoma in January and had recently had a port put and was due to start chemotherapy next Saturday. She denied any fever or chills, any cough or chest pain, any palpitations, any lightheadedness or dizziness, any abdominal pain, any diarrhea vomiting. Review of systems otherwise negative. In the ED, vitals showed respiratory rate of 20 she was saturating at 96% on 2 L of oxygen. Labs showed sodium of 135 and troponin of 3.44. EKG showed no acute ST changes. Chest x-ray showed a large left pleural effusion. CT angiogram showed moderate to large left pleural effusion and moderate right pleural effusion, with no change from prior study, moderate to market by mediastinal and axillary adenopathy and no evidence of pulmonary embolus or aortic dissection. She is been admitted to be managed for NST KAYLA and bilateral pleural effusions. [] Past Medical History Medical History: Medical History (Last Reviewed 03/13/18 @ 14:52 by Taty Veliz) Constipation K59.00 Lymphadenopathy R59.1 Allergies No Known Allergies Allergy (Verified 03/17/18 14:57) Home Medications: Ambulatory Orders Medication Instructions Recorded aspirin 81 mg tablet,delayed 81 mg PO DAILY 02/10/18 release omega-3 fatty acids 1,000 mg 1,000 mg PO DAILY 02/10/18 capsule Multivitamin [Multiple Vitamins] 1 tab PO DAILY 02/25/18 Aspirin E.C. [Ecotrin] 325 mg PO DAILY@0800 03/17/18 Hydrocodone/Acetaminophen [[place] 1 tab PO PRN PRN 03/17/18 5-325 Tablet] Surgical History: Surgical History (Last Reviewed 03/13/18 @ 14:52 by Taty Veliz) Hx of lymph node biopsy Onset Date: ~02/2018 Z98.890 No history of previous surgery Psychiatric History: No pertinent psych hx [employer] History: No pertinent [employer] history Smoking Status: Former smoker - *Family History Maternal Family History: Family History (Last Reviewed 03/13/18 @ 14:52 by Taty Veliz) Father Diabetes Arthritis Heart disease Kidney disease Stomach ulcer Hypertension Sister Diabetes Arthritis Heart disease Hypertension Thyroid disorder Mother Breast cancer Cancer Brother Diabetes Kidney disease Hypertension Lymphoma History Items: Cancer, Heart Disease Paternal Family History: Family History (Last Reviewed 03/13/18 @ 14:52 by Taty Veliz) Father Diabetes Arthritis Heart disease Kidney disease Stomach ulcer Hypertension Sister Diabetes Arthritis Heart disease Hypertension Thyroid disorder Mother Breast cancer Cancer Brother Diabetes Kidney disease Hypertension Lymphoma History Items: High Cholesterol, Heart Disease, Hypertension Sibling Family History: Family History (Last Reviewed 03/13/18 @ 14:52 by Taty Veliz) Father Diabetes Arthritis Heart disease Kidney disease Stomach ulcer Hypertension Sister Diabetes Arthritis Heart disease Hypertension Thyroid disorder Mother Breast cancer Cancer Brother Diabetes Kidney disease Hypertension Lymphoma History Items: Cancer Review of Systems Constitutional: Denies: Chills, Fever, Malaise, Weakness, Weight Change, Fatigue Eyes: Denies: Blurred vision HEENT: Denies: Head Aches, Sinus Congestion, Sinus Drainage Cardiovascular: Denies: Chest Pain, Chest Tightness, Heaviness, Light Headedness, Orthopnea, Palpitations, Syncope Respiratory: Reports: Shortness of Breath, Shortness of breath at rest, Shortness of breath upon exertion. Denies: Cough, Hemoptysis, Pleuritic Pain, Sputum production, Wheezing Gastrointestinal: Denies: Abdominal Pain, Nausea, Vomiting Genitourinary: Denies: Dysuria Musculoskeletal: Denies: Joint Pain, Joint Tenderness Skin: Denies: Rash, Wounds Neurological: Denies: Numbness, Tingling, Focal weakness Psychiatric: Denies: Anxiety, Depression, Homicidal Ideations, Suicidal Ideations Hematologic/ Lymphatic: Denies: Easy Bruising, Easy Bleeding VTE Information - Inpt Only VTE Present on Admission: No VTE Pharm Prophylaxis ordered?: Yes - Physical Exam General: Alert, Oriented x3, Cooperative, No apparent distress HEENT: Atraumatic, PERRLA, EOMI, Normocephalic Oral: Moist Mucosa Neck: Supple, No JVD, Negative Carotid Bruits Lungs: - - markedly decreased breath sounds in mid lower lung pritchard; breath sounds absent in lower lung pritchard. Abdomen: Bowel Sounds Present, Soft, Non Tender, Non-Distended, No Hepato-splenomegaly Extremities: No clubbing, No cyanosis, No edema, Capillary Refill Less than 3 Seconds Skin: No rashes, No breakdown Musculoskeletal: No Tenderness to Palpation of Joints or Extremities Lymphatic: No Cervical, Supraclavicular, or Inguinal Adenopathy Neurological: Cranial nerves II-XII grossly intact, Neuro grossly intact, Motor Exam 5/5 strength throughout Psych/Mental Status: Normal Affect, Appropriate, Alert and oriented to time, place, person, mood and affect Vital Signs Temp Pulse Resp BP Pulse Ox 97.3 F L 87 20 H 128/74 H 96 03/17/18 14:57 03/17/18 18:19 03/17/18 18:19 03/17/18 18:19 03/17/18 18:19 Oxygen Flow Rate (L/min) 2 Oxygen Delivery Method Room Air Weight: 180 lb Body Mass Index (BMI) 31.8 Laboratory Tests Past 24 Hrs 03/17/18 03/17/18 16:57 16:57 WBC 9.2 RBC 4.64 Hgb 13.7 Hct 41.6 MCV 89.7 MCH 29.5 MCHC 32.9 RDW 15.1 H RDW Differential 48.6 H Plt Count 210 MPV 12.6 H Immature Gran % (Auto) 0.200 Neut % (Auto) 77.0 H Lymph % (Auto) 10.1 L [place] % (Auto) 12.4 H Eos % (Auto) 0.1 Baso % (Auto) 0.2 Absolute Neuts (auto) 7.1 Absolute Lymphs (auto) 0.93 Total Counted Not Reportable Sodium 135 L Potassium 3.9 Chloride 99 Carbon Dioxide 28.0 Anion Gap 8 BUN 13 Creatinine 0.59 Estim Creat Clear Calc 79.69 Est GFR (MDRD) Af Amer 131 Est GFR (MDRD) Non-Af 109 BUN/Creatinine Ratio 22.0 H Glucose 95 Calcium 9.9 Total Bilirubin 0.50 Direct Bilirubin 0.19 AST 45 H ALT 22 Alkaline Phosphatase 73 Troponin I 3.440 H* Total Protein 7.0 Albumin 3.6 Globulin 3.4 Diagnostic Data Chest X-Ray 03/17/18 15:46 IMPRESSION: Large left pleural effusion, otherwise unremarkable. Electronically Signed: Mariama Saha MD at 16:32 EST Tel , Service support , Chest CTA 03/17/18 17:49 IMPRESSION: 1. No evidence of pulmonary embolus or aortic dissection. 2. Moderate to large bilateral pleural effusions. No change from the prior study. 3. Moderate to marked mediastinal and axillary adenopathy. No change from prior. Electronically Signed: Mariama Saha MD at 19:07 EST Tel , Service support , Assessment/Plan All Active Problems (Last Reviewed 03/13/18 @ 14:52 by Taty Veliz) Follicular lymphoma grade III (Acute) 62 y/o female admitted with worsening shortness of breath for the past 2 weeks 1. NSTEMI SOB has been worsening for 2 weeks; troponin on admission was 3.44 EKG showed no acute ST changes CT angiogram was negative for PE echocardiogram (03/07/18); normal left ventricular systolic function with EF of 60% and pulmonary artery systolic pressure of 33 mmHg; no evidence of diastolic dysfunction. admit to PCU with telemetry; cycle troponins start SC lovenox 90IU bid. Received one dose of lovenox 80IU bid give aspirin, plavix and atorvastatin 40mg cardiology consult 2. Bilateral pleural effusions, likely malignant on 2 L of oxygen. Shortness of breath has been progressively getting worse for the past 2 weeks. Chest x-ray showed large left pleural effusion. CT of the chest was negative for PE and showed large left pleural effusion moderate right pleural effusion. Consult pulmonology. She will need thoracentesis 3. Follicular lymphoma stage III recently diagnosed in 01/30. Has port in place follows Dr Noyola; was due to start chemo this saturday. to follow up with oncology on outpatient basis DVT prophylaxis: therapeutic lovenox Code status: Patient and counseled extensively about different types of CODE STATUS including full code, DNR CCA and DNR CCA. Patient elects to be full code. Total [id number]-xl-tutu time 17 minutes. Code Visit Inpatient E&M: 85467 Init Hosp L3 Procedures: 34591 Advncd Care Plan 30 Min
--- NOTE | 2018-03-17 19:57 | HP.PCM_ITS ---
History of Present Illness Date of Admission: 03/17/18 Chief Complaint: shortness of breath The patient is a 62 year old F past medical history of recently diagnosed follicular lymphoma and hypertension. She was admitted through the ED on 04-01 with a complaint of worsening shortness of breath for the past 2 weeks. She had associated orthopnea and exertional dyspnea. Symptoms worsen and so she decided to come to the ED. She was recently diagnosed with follicular lymphoma in January and had recently had a port put and was due to start chemotherapy next Saturday. She denied any fever or chills, any cough or chest pain, any palpitations, any lightheadedness or dizziness, any abdominal pain, any diarrhea vomiting. Review of systems otherwise negative. In the ED, vitals showed respiratory rate of 20 she was saturating at 96% on 2 L of oxygen. Labs showed sodium of 135 and troponin of 3.44. EKG showed no acute ST changes. Chest x- ray showed a large left pleural effusion. CT angiogram showed moderate to large left pleural effusion and moderate right pleural effusion, with no change from prior study, moderate to market by mediastinal and axillary adenopathy and no evidence of pulmonary embolus or aortic dissection. She is been admitted to be managed for NST KAYLA and bilateral pleural effusions. [] Past Medical History Medical History: Medical History (Last Reviewed 03/13/18 @ 14:52 by Taty Veliz) Constipation K59.00 Lymphadenopathy R59.1 Allergies No Known Allergies Allergy (Verified 03/17/18 14:57) Home Medications: Ambulatory Orders Medication Instructions Recorded aspirin 81 mg tablet,delayed 81 mg PO DAILY 02/10/18 release omega-3 fatty acids 1,000 mg 1,000 mg PO DAILY 02/10/18 capsule Multivitamin [Multiple Vitamins] 1 tab PO DAILY 02/25/18 Aspirin E.C. [Ecotrin] 325 mg PO DAILY@0800 03/17/18 Hydrocodone/Acetaminophen [[place] 1 tab PO PRN PRN 03/17/18 5-325 Tablet] Surgical History: Surgical History (Last Reviewed 03/13/18 @ 14:52 by Taty Veliz) Hx of lymph node biopsy Onset Date: ~02/2018 Z98.890 No history of previous surgery Psychiatric History: No pertinent psych hx [employer] History: No pertinent [employer] history Smoking Status: Former smoker - *Family History Maternal Family History: Family History (Last Reviewed 03/13/18 @ 14:52 by Taty Veliz) Father Diabetes Arthritis Heart disease Kidney disease Stomach ulcer Hypertension Sister Diabetes Arthritis Heart disease Hypertension Thyroid disorder Mother Breast cancer Cancer Brother Diabetes Kidney disease Hypertension Lymphoma History Items: Cancer, Heart Disease Paternal Family History: Family History (Last Reviewed 03/13/18 @ 14:52 by Taty Veliz) Father Diabetes Arthritis Heart disease Kidney disease Stomach ulcer Hypertension Sister Diabetes Arthritis Heart disease Hypertension Thyroid disorder Mother Breast cancer Cancer Brother Diabetes Kidney disease Hypertension Lymphoma History Items: High Cholesterol, Heart Disease, Hypertension Sibling Family History: Family History (Last Reviewed 03/13/18 @ 14:52 by Taty Veliz) Father Diabetes Arthritis Heart disease Kidney disease Stomach ulcer Hypertension Sister Diabetes Arthritis Heart disease Hypertension Thyroid disorder Mother Breast cancer Cancer Brother Diabetes Kidney disease Hypertension Lymphoma History Items: Cancer Review of Systems Constitutional: Denies: Chills, Fever, Malaise, Weakness, Weight Change, Fatigue Eyes: Denies: Blurred vision HEENT: Denies: Head Aches, Sinus Congestion, Sinus Drainage Cardiovascular: Denies: Chest Pain, Chest Tightness, Heaviness, Light Headedness, Orthopnea, Palpitations, Syncope Respiratory: Reports: Shortness of Breath, Shortness of breath at rest, Shortness of breath upon exertion. Denies: Cough, Hemoptysis, Pleuritic Pain, Sputum production, Wheezing Gastrointestinal: Denies: Abdominal Pain, Nausea, Vomiting Genitourinary: Denies: Dysuria Musculoskeletal: Denies: Joint Pain, Joint Tenderness Skin: Denies: Rash, Wounds Neurological: Denies: Numbness, Tingling, Focal weakness Psychiatric: Denies: Anxiety, Depression, Homicidal Ideations, Suicidal Ideations Hematologic/ Lymphatic: Denies: Easy Bruising, Easy Bleeding VTE Information - Inpt Only VTE Present on Admission: No VTE Pharm Prophylaxis ordered?: Yes - Physical Exam General: Alert, Oriented x3, Cooperative, No apparent distress HEENT: Atraumatic, PERRLA, EOMI, Normocephalic Oral: Moist Mucosa Neck: Supple, No JVD, Negative Carotid Bruits Lungs: - - markedly decreased breath sounds in mid lower lung pritchard; breath sounds absent in lower lung pritchard. Abdomen: Bowel Sounds Present, Soft, Non Tender, Non-Distended, No Hepato- splenomegaly Extremities: No clubbing, No cyanosis, No edema, Capillary Refill Less than 3 Seconds Skin: No rashes, No breakdown Musculoskeletal: No Tenderness to Palpation of Joints or Extremities Lymphatic: No Cervical, Supraclavicular, or Inguinal Adenopathy Neurological: Cranial nerves II-XII grossly intact, Neuro grossly intact, Motor Exam 5/5 strength throughout Psych/Mental Status: Normal Affect, Appropriate, Alert and oriented to time, place, person, mood and affect Vital Signs Temp Pulse Resp BP Pulse Ox 97.3 F L 87 20 H 128/74 H 96 03/17/18 14:57 03/17/18 18:19 03/17/18 18:19 03/17/18 18:19 03/17/18 18:19 Oxygen Flow Rate (L/min) 2 Oxygen Delivery Method Room Air Weight: 180 lb Body Mass Index (BMI) 31.8 Laboratory Tests Past 24 Hrs 03/17/18 03/17/18 16:57 16:57 WBC 9.2 RBC 4.64 Hgb 13.7 Hct 41.6 MCV 89.7 MCH 29.5 MCHC 32.9 RDW 15.1 H RDW Differential 48.6 H Plt Count 210 MPV 12.6 H Immature Gran % (Auto) 0.200 Neut % (Auto) 77.0 H Lymph % (Auto) 10.1 L [place] % (Auto) 12.4 H Eos % (Auto) 0.1 Baso % (Auto) 0.2 Absolute Neuts (auto) 7.1 Absolute Lymphs (auto) 0.93 Total Counted Not Reportable Sodium 135 L Potassium 3.9 Chloride 99 Carbon Dioxide 28.0 Anion Gap 8 BUN 13 Creatinine 0.59 Estim Creat Clear Calc 79.69 Est GFR (MDRD) Af Amer 131 Est GFR (MDRD) Non-Af 109 BUN/Creatinine Ratio 22.0 H Glucose 95 Calcium 9.9 Total Bilirubin 0.50 Direct Bilirubin 0.19 AST 45 H ALT 22 Alkaline Phosphatase 73 Troponin I 3.440 H* Total Protein 7.0 Albumin 3.6 Globulin 3.4 Diagnostic Data Chest X-Ray 03/17/18 15:46 IMPRESSION: Large left pleural effusion, otherwise unremarkable. Electronically Signed: Mariama Saha MD at 16:32 EST Tel , Service support , Chest CTA 03/17/18 17:49 IMPRESSION: 1. No evidence of pulmonary embolus or aortic dissection. 2. Moderate to large bilateral pleural effusions. No change from the prior study. 3. Moderate to marked mediastinal and axillary adenopathy. No change from prior. Electronically Signed: Mariama Saha MD at 19:07 EST Tel , Service support , Assessment/Plan All Active Problems (Last Reviewed 03/13/18 @ 14:52 by Taty Veliz) Follicular lymphoma grade III (Acute) 62 y/o female admitted with worsening shortness of breath for the past 2 weeks 1. NSTEMI * SOB has been worsening for 2 weeks; troponin on admission was 3.44 * EKG showed no acute ST changes * CT angiogram was negative for PE * echocardiogram (03/07/18); normal left ventricular systolic function with EF of 60% and pulmonary artery systolic pressure of 33 mmHg; no evidence of diastolic dysfunction. * admit to PCU with telemetry; cycle troponins * start SC lovenox 90IU bid. Received one dose of lovenox 80IU bid * give aspirin, plavix and atorvastatin 40mg * cardiology consult * 2. Bilateral pleural effusions, likely malignant * on 2 L of oxygen. Shortness of breath has been progressively getting worse fo r the past 2 weeks. Chest x-ray showed large left pleural effusion. CT of the chest was negative for PE and showed large left pleural effusion moderate right pleural effusion. * Consult pulmonology. She will need thoracentesis * 3. Follicular lymphoma stage III * recently diagnosed in 01/30. Has port in place * follows Dr Noyola; was due to start chemo this saturday. * to follow up with oncology on outpatient basis * DVT prophylaxis: therapeutic lovenox Code status: Patient and counseled extensively about different types of CODE STATUS including full code, DNR CCA and DNR CCA. Patient elects to be full code. Total [id number] time 17 minutes. Code Visit Inpatient E&M: 10356 Init Hosp L3 Procedures: 24544 Advncd Care Plan 30 Min
[2018-03-17] MEDS: Nitroglycerin Oint 1 INCH PACKET TRANSDERM. (21:34)
[2018-03-17] MEDS: Clopidogrel Bisulfate 300 MG Tablet PO (21:35)
[2018-03-18] VITALS (13 sets, daily range): BP systolic 97–135; BP diastolic 48–86; PULSE 69–91; RESP 16–20; TEMP 36.4–37.1; O2SAT 93–98
[2018-03-18] MEDS: Enoxaparin 100 MG/ML Syringe 90 MG SC (06:05)
[2018-03-18 06:58] LABS: Absolute Lymphocyte Count 1.04 X10^3/ul (0.83-4.51); Absolute Neutrophil Count 4.9 X10^3/uL (2.0-7.7); Anion Gap 11 (5-15); BUN 13 mg/dL (7-18); Basophil# 0.01 X10^3/uL; Basophil% 0.1 % (0-1); Calcium,Total 10.1 mg/dL (8.5-10.1); Chloride 100 mmol/L (98-107); Creatinine, Serum 0.57 mg/dL (0.55-1.02); EST Glomerular Filtration Rate 114 mL/min (>60); Eosinophil# 0.01 X10^3/uL; Eosinophils% 0.1 % (0-5); Est Glom Filt Rate - Afr Amer 138 mL/min (>60); Estimated Creatinine Clearance 82.48 ml/min; Glucose 91 mg/dL (74-106); Hematocrit 39.5 % (37-47); Hemoglobin 13.3 g/dl (12.0-15.0); Lymphocyte # 1.04 X10^3/ul (4.0); Lymphocyte % 14.9 % (19-41); Mean Corp Hgb Conc 33.7 g/gl (32-36); Mean Corpuscular Hgb 29.8 pg (27.0-32.0); Mean Corpuscular Volume 88.6 fL (81-99); Mean Platelet Vol. 13.1 fl (6.2-12.0); Monocyte# 1.07 X10^3/uL; Monocyte% 15.3 % (0-10); Neutrophil # 4.85 X10^3/uL (2.7-7.7); Neutrophil % 69.5 % (47-70); Platelet Count 203 K/mm3 (150-450); RBC Distribution Width CV 14.9 % (11.6-14.6); RBC Distribution Width SD 47.9 fl (35.1-43.9); Red Blood Count 4.46 M/mm3 (4.2-5.4); Sodium Level 137 mmol/L (136-145)
--- NOTE | 2018-03-18 06:58 | PCM.CONS.GEN ---
Reason for Consult Date of Consultation: 03/18/18 Reason for Consultation: Pleural effusions History of Present Illness: The patient is a 62-year-old female, with a history as outlined below, who presented to the emergency department on March 17 with complaints of progressively worsening exertional shortness of breath over 2 weeks. The patient currently follows with Dr. Aiken of oncology, due to a recent diagnosis of follicular lymphoma. On March 14, the patient underwent a right IJ power port placement to facilitate treatment with systemic chemotherapy. Surface echocardiogram dated March 07 revealed normal LV size and function with an ejection fraction of 60%. Pulmonary artery systolic pressure was estimated to be 33 mmHg. Recent lower extremity Doppler study completed on March 04 was negative for the presence of DVTs. The patient also has known bilateral pleural effusions dating back to CT chest dated February 14. The patient has never undergone a diagnostic or therapeutic thoracentesis previously. She denies the presence of a cough, fevers or chills. The patient was initially scheduled to be started on chemotherapy this week. On presentation to the emergency department, the patient was noted to be afebrile and hemodynamically stable. Laboratory evaluation revealed no evidence of a leukocytosis. Chemistry profile was largely unremarkable. Troponin, however, was increased to 3.4. A CTA chest was obtained which revealed no evidence for pulmonary embolism. There was again evidence of moderate to large bilateral pleural effusions, unchanged from the patient's previous study along with marked mediastinal and axillary adenopathy. For reasons that are not clear to me, the patient was started on treatment strength Lovenox, despite the fact that her CTA was negative for PE. She was subsequently admitted to the progressive care unit for further workup of her shortness of breath and newly diagnosed non-ST segment elevation [place]. Past Medical History Medical History: Medical History (Last Reviewed 03/13/18 @ 14:52 by Taty Veliz) Constipation K59.00 Lymphadenopathy R59.1 Allergies No Known Allergies Allergy (Verified 03/17/18 14:57) Home Medications: Ambulatory Orders Medication Instructions Recorded aspirin 81 mg tablet,delayed 81 mg PO DAILY 02/10/18 release omega-3 fatty acids 1,000 mg 1,000 mg PO DAILY 02/10/18 capsule Multivitamin [Multiple Vitamins] 1 tab PO DAILY 02/25/18 Aspirin E.C. [Ecotrin] 325 mg PO PRN PRN 03/17/18 Hydrocodone/Acetaminophen [[place] 1 tab PO PRN PRN 03/17/18 5-325 Tablet] Surgical History: Surgical History (Last Reviewed 03/13/18 @ 14:52 by Taty Veliz) Hx of lymph node biopsy Onset Date: ~02/2018 Z98.890 No history of previous surgery Psychiatric History: No pertinent psych hx [employer] History: No pertinent [employer]OR history Smoking Status: Former smoker Tobacco Use: Cigarettes - *Family History Maternal Family History: Family History (Last Reviewed 03/13/18 @ 14:52 by Taty Veliz) Father Diabetes Arthritis Heart disease Kidney disease Stomach ulcer Hypertension Sister Diabetes Arthritis Heart disease Hypertension Thyroid disorder Mother Breast cancer Cancer Brother Diabetes Kidney disease Hypertension Lymphoma History Items: Cancer, Heart Disease Paternal Family History: Family History (Last Reviewed 03/13/18 @ 14:52 by Taty Veliz) Father Diabetes Arthritis Heart disease Kidney disease Stomach ulcer Hypertension Sister Diabetes Arthritis Heart disease Hypertension Thyroid disorder Mother Breast cancer Cancer Brother Diabetes Kidney disease Hypertension Lymphoma History Items: High Cholesterol, Heart Disease, Hypertension Sibling Family History: Family History (Last Reviewed 03/13/18 @ 14:52 by Taty Veliz) Father Diabetes Arthritis Heart disease Kidney disease Stomach ulcer Hypertension Sister Diabetes Arthritis Heart disease Hypertension Thyroid disorder Mother Breast cancer Cancer Brother Diabetes Kidney disease Hypertension Lymphoma History Items: Cancer Review of Systems Constitutional: Denies: Chills, Fever, Weight Change Eyes: Denies: Blurred vision, Double vision HEENT: Denies: Head Aches, Sinus Congestion, Sinus Drainage Cardiovascular: Denies: Chest Pain, Palpitations Respiratory: Reports: Shortness of Breath. Denies: Cough, Sputum production Gastrointestinal: Denies: Abdominal Pain, Nausea, Vomiting Genitourinary: Denies: Dysuria Musculoskeletal: Denies: Joint Pain, Joint Tenderness Skin: Denies: Rash, Wounds Neurological: Denies: Numbness, Tingling, Focal weakness Psychiatric: Denies: Anxiety, Depression, Homicidal Ideations, Suicidal Ideations Hematologic/ Lymphatic: Reports: Adenopathy Objective: The patient's most recent lab work, culture data and imaging studies have all been personally reviewed. - Physical Exam General: Alert, Oriented x3, Cooperative, No apparent distress HEENT: Atraumatic, PERRLA, Normocephalic Oral: No Gingival or Mucosal Lesions/ Ulcerations Neck: Supple, No Nodes, Trachea Midline Lungs: - - There is significantly diminished air movement throughout the entire left hemithorax with preserved aeration of the right mid and upper lung pritchard. There is dullness to percussion of the bases bilaterally. Cardiovascular: Regular rate, Regular Rhythm, Normal S1, Normal S2, No murmurs Abdomen: Bowel Sounds Present, Soft, Non Tender Extremities: No clubbing, No cyanosis, No edema Skin: No breakdown Musculoskeletal: No Tenderness to Palpation of Joints or Extremities Neurological: Cranial nerves II-XII grossly intact, Neuro grossly intact Psych/Mental Status: Alert and oriented to time, place, person, mood and affect Vital Signs Temp Pulse Resp BP Pulse Ox 37.0 C 85 20 H 119/74 93 03/18/18 03:00 03/18/18 03:00 03/18/18 03:00 03/18/18 03:00 03/18/18 03:00 Oxygen Flow Rate (L/min) 2 Oxygen Delivery Method Nasal Cannula Weight: 179 lb 10.828 oz Body Mass Index (BMI) 31.8 Laboratory Tests Past 24 Hrs 03/17/18 03/17/18 03/17/18 16:57 16:57 20:52 WBC 9.2 RBC 4.64 Hgb 13.7 Hct 41.6 MCV 89.7 MCH 29.5 MCHC 32.9 RDW 15.1 H RDW Differential 48.6 H Plt Count 210 MPV 12.6 H Immature Gran % (Auto) 0.200 Neut % (Auto) 77.0 H Lymph % (Auto) 10.1 L [place] % (Auto) 12.4 H Eos % (Auto) 0.1 Baso % (Auto) 0.2 Absolute Neuts (auto) 7.1 Absolute Lymphs (auto) 0.93 Total Counted Not Reportable Sodium 135 L Potassium 3.9 Chloride 99 Carbon Dioxide 28.0 Anion Gap 8 BUN 13 Creatinine 0.59 Estim Creat Clear Calc 79.69 Est GFR (MDRD) Af Amer 131 Est GFR (MDRD) Non-Af 109 BUN/Creatinine Ratio 22.0 H Glucose 95 Calcium 9.9 Total Bilirubin 0.50 Direct Bilirubin 0.19 AST 45 H ALT 22 Alkaline Phosphatase 73 Troponin I 3.440 H* 3.110 H* Total Protein 7.0 Albumin 3.6 Globulin 3.4 03/17/18 03/18/18 03/18/18 23:15 06:00 06:00 WBC Pending RBC Pending Hgb Pending Hct Pending MCV Pending MCH Pending MCHC Pending RDW Pending RDW Differential Pending Plt Count Pending MPV Immature Gran % (Auto) Neut % (Auto) Pending Lymph % (Auto) [place] % (Auto) Eos % (Auto) Baso % (Auto) Absolute Neuts (auto) Pending Absolute Lymphs (auto) Total Counted Pending Sodium 137 Potassium 4.0 Chloride 100 Carbon Dioxide 26.0 Anion Gap 11 BUN 13 Creatinine 0.57 Estim Creat Clear Calc 82.48 Est GFR (MDRD) Af Amer 138 Est GFR (MDRD) Non-Af 114 BUN/Creatinine Ratio 23.0 H Glucose 91 Calcium 10.1 Total Bilirubin Direct Bilirubin AST ALT Alkaline Phosphatase Troponin I 2.810 H* Total Protein Albumin Globulin Clinical Impression(s) from Imaging Studies Chest X-Ray 03/17/18 15:46 IMPRESSION: Large left pleural effusion, otherwise unremarkable. Electronically Signed: Mariama Saha MD at 16:32 EST Tel , Service support , Chest CTA 03/17/18 17:49 IMPRESSION: 1. No evidence of pulmonary embolus or aortic dissection. 2. Moderate to large bilateral pleural effusions. No change from the prior study. 3. Moderate to marked mediastinal and axillary adenopathy. No change from prior. Electronically Signed: Mariama Saha MD at 19:07 EST Tel , Service support , Assessment/Plan All Active Problems (Last Reviewed 03/13/18 @ 14:52 by Taty Veliz) Follicular lymphoma grade III (Acute) RECOMMENDATIONS: 1. Discontinue treatment strength Lovenox, as the patient was not noted to have a PE. 2. Hold all anticoagulation at this time, pending thoracentesis. Once completed, prophylactic dose Lovenox can be resumed. 3. Obtain stat coags. 4. Obtain ultrasound-guided thoracentesis. I have already discussed this case with radiology. 5. Send pleural fluid for cytology and flow cytometry. 6. Wean supplemental oxygen as tolerated to maintain a saturation of 90% or greater. Encourage incentive spirometer use. IMPRESSIONS: 1. Acute hypoxic respiratory insufficiency secondary to bilateral pleural effusions The etiology for the patient's pleural effusions are most likely malignant in nature and related to her newly diagnosed follicular lymphoma. She has never undergone a thoracentesis previously. Therefore, would recommend proceeding with a left-sided ultrasound-guided thoracentesis, which will be both therapeutic and diagnostic in nature. Send pleural fluid for cytology and flow cytometry. My hope is that with drainage of the left hemithorax, coupled with aggressive incentive spirometer use, the patient's shortness of breath and subsequent oxygenation will improve. Orders for ultrasound-guided thoracentesis and pleural fluid analysis have been placed. 2. Newly diagnosed follicular lymphoma Plans to initiate systemic chemotherapy soon as the patient has been stabilized from a medical perspective. 3. Troponin elevation Potential demand ischemia, as the patient's recent echocardiogram was unrevealing. Cardiology is currently following. Will defer management accordingly. This note was generated with [employer] dictation software. It may contain incorrect words, spelling, and punctuation that were not noted in checking the note before signing. UPDATE: Nursing staff made me aware that radiology is unable to perform the patient's thoracentesis this morning, as her Lovenox was not discontinued upon her admission to the hospital, and she was given a dose early this morning. Therefore, she will have to wait likely until tomorrow to have the procedure done. Code Visit Inpatient E&M: 43403 Init Hosp L3
[2018-03-18 07:01] LABS: POSITIVE COUNT NO; POSITIVE DIFFERENTIAL NO; POSITIVE MORPHOLOGY NO
--- NOTE | 2018-03-18 07:06 | CON.PCM_ITS ---
Reason for Consult Date of Consultation: 03/18/18 Reason for Consultation: Pleural effusions History of Present Illness: The patient is a 62-year-old female, with a history as outlined below, who presented to the emergency department on March 17 with complaints of progressively worsening exertional shortness of breath over 2 weeks. The patient currently follows with Dr. Aiken of oncology, due to a recent diagnosis of follicular lymphoma. On March 14, the patient underwent a right IJ power port placement to facilitate treatment with systemic chemotherapy. Surface echocardiogram dated March 07 revealed normal LV size and function with an ejection fraction of 60%. Pulmonary artery systolic pressure was estimated to be 33 mmHg. Recent lower extremity Doppler study completed on March 04 was negative for the presence of DVTs. The patient also has known bilateral pleural effusions dating back to CT chest dated February 14. The patient has never undergone a diagnostic or therapeutic thoracentesis previously. She denies the presence of a cough, fevers or chills. The patient was initially scheduled to be started on chemotherapy this week. On presentation to the emergency department, the patient was noted to be afebrile and hemodynamically stable. Laboratory evaluation revealed no evidence of a leukocytosis. Chemistry profile was largely unremarkable. Troponin, however, was increased to 3.4. A CTA chest was obtained which revealed no evidence for pulmonary embolism. There was again evidence of moderate to large bilateral pleural effusions, unchanged from the patient's previous study along with marked mediastinal and axillary adenopathy. For reasons that are not clear to me, the patient was started on treatment strength Lovenox, despite the fact that her CTA was negative for PE. She was subsequently admitted to the progressive care unit for further workup of her shortness of breath and newly diagnosed non-ST segment elevation [place]. Past Medical History Medical History: Medical History (Last Reviewed 03/13/18 @ 14:52 by Taty Veliz) Constipation K59.00 Lymphadenopathy R59.1 Allergies No Known Allergies Allergy (Verified 03/17/18 14:57) Home Medications: Ambulatory Orders Medication Instructions Recorded aspirin 81 mg tablet,delayed 81 mg PO DAILY 02/10/18 release omega-3 fatty acids 1,000 mg 1,000 mg PO DAILY 02/10/18 capsule Multivitamin [Multiple Vitamins] 1 tab PO DAILY 02/25/18 Aspirin E.C. [Ecotrin] 325 mg PO PRN PRN 03/17/18 Hydrocodone/Acetaminophen [[place] 1 tab PO PRN PRN 03/17/18 5-325 Tablet] Surgical History: Surgical History (Last Reviewed 03/13/18 @ 14:52 by Taty Veliz) Hx of lymph node biopsy Onset Date: ~02/2018 Z98.890 No history of previous surgery Psychiatric History: No pertinent psych hx [employer] History: No pertinent [employer] history Smoking Status: Former smoker Tobacco Use: Cigarettes - *Family History Maternal Family History: Family History (Last Reviewed 03/13/18 @ 14:52 by Taty Veliz) Father Diabetes Arthritis Heart disease Kidney disease Stomach ulcer Hypertension Sister Diabetes Arthritis Heart disease Hypertension Thyroid disorder Mother Breast cancer Cancer Brother Diabetes Kidney disease Hypertension Lymphoma History Items: Cancer, Heart Disease Paternal Family History: Family History (Last Reviewed 03/13/18 @ 14:52 by Taty Veliz) Father Diabetes Arthritis Heart disease Kidney disease Stomach ulcer Hypertension Sister Diabetes Arthritis Heart disease Hypertension Thyroid disorder Mother Breast cancer Cancer Brother Diabetes Kidney disease Hypertension Lymphoma History Items: High Cholesterol, Heart Disease, Hypertension Sibling Family History: Family History (Last Reviewed 03/13/18 @ 14:52 by Taty Veliz) Father Diabetes Arthritis Heart disease Kidney disease Stomach ulcer Hypertension Sister Diabetes Arthritis Heart disease Hypertension Thyroid disorder Mother Breast cancer Cancer Brother Diabetes Kidney disease Hypertension Lymphoma History Items: Cancer Review of Systems Constitutional: Denies: Chills, Fever, Weight Change Eyes: Denies: Blurred vision, Double vision HEENT: Denies: Head Aches, Sinus Congestion, Sinus Drainage Cardiovascular: Denies: Chest Pain, Palpitations Respiratory: Reports: Shortness of Breath. Denies: Cough, Sputum production Gastrointestinal: Denies: Abdominal Pain, Nausea, Vomiting Genitourinary: Denies: Dysuria Musculoskeletal: Denies: Joint Pain, Joint Tenderness Skin: Denies: Rash, Wounds Neurological: Denies: Numbness, Tingling, Focal weakness Psychiatric: Denies: Anxiety, Depression, Homicidal Ideations, Suicidal Ideations Hematologic/ Lymphatic: Reports: Adenopathy Objective: The patient's most recent lab work, culture data and imaging studies have all been personally reviewed. - Physical Exam General: Alert, Oriented x3, Cooperative, No apparent distress HEENT: Atraumatic, PERRLA, Normocephalic Oral: No Gingival or Mucosal Lesions/ Ulcerations Neck: Supple, No Nodes, Trachea Midline Lungs: - - There is significantly diminished air movement throughout the entire left hemithorax with preserved aeration of the right mid and upper lung pritchard. There is dullness to percussion of the bases bilaterally. Cardiovascular: Regular rate, Regular Rhythm, Normal S1, Normal S2, No murmurs Abdomen: Bowel Sounds Present, Soft, Non Tender Extremities: No clubbing, No cyanosis, No edema Skin: No breakdown Musculoskeletal: No Tenderness to Palpation of Joints or Extremities Neurological: Cranial nerves II-XII grossly intact, Neuro grossly intact Psych/Mental Status: Alert and oriented to time, place, person, mood and affect Vital Signs Temp Pulse Resp BP Pulse Ox 37.0 C 85 20 H 119/74 93 03/18/18 03:00 03/18/18 03:00 03/18/18 03:00 03/18/18 03:00 03/18/18 03:00 Oxygen Flow Rate (L/min) 2 Oxygen Delivery Method Nasal Cannula Weight: 179 lb 10.828 oz Body Mass Index (BMI) 31.8 Laboratory Tests Past 24 Hrs 03/17/18 03/17/18 03/17/18 16:57 16:57 20:52 WBC 9.2 RBC 4.64 Hgb 13.7 Hct 41.6 MCV 89.7 MCH 29.5 MCHC 32.9 RDW 15.1 H RDW Differential 48.6 H Plt Count 210 MPV 12.6 H Immature Gran % (Auto) 0.200 Neut % (Auto) 77.0 H Lymph % (Auto) 10.1 L [place] % (Auto) 12.4 H Eos % (Auto) 0.1 Baso % (Auto) 0.2 Absolute Neuts (auto) 7.1 Absolute Lymphs (auto) 0.93 Total Counted Not Reportable Sodium 135 L Potassium 3.9 Chloride 99 Carbon Dioxide 28.0 Anion Gap 8 BUN 13 Creatinine 0.59 Estim Creat Clear Calc 79.69 Est GFR (MDRD) Af Amer 131 Est GFR (MDRD) Non-Af 109 BUN/Creatinine Ratio 22.0 H Glucose 95 Calcium 9.9 Total Bilirubin 0.50 Direct Bilirubin 0.19 AST 45 H ALT 22 Alkaline Phosphatase 73 Troponin I 3.440 H* 3.110 H* Total Protein 7.0 Albumin 3.6 Globulin 3.4 03/17/18 03/18/18 03/18/18 23:15 06:00 06:00 WBC Pending RBC Pending Hgb Pending Hct Pending MCV Pending MCH Pending MCHC Pending RDW Pending RDW Differential Pending Plt Count Pending MPV Immature Gran % (Auto) Neut % (Auto) Pending Lymph % (Auto) [place] % (Auto) Eos % (Auto) Baso % (Auto) Absolute Neuts (auto) Pending Absolute Lymphs (auto) Total Counted Pending Sodium 137 Potassium 4.0 Chloride 100 Carbon Dioxide 26.0 Anion Gap 11 BUN 13 Creatinine 0.57 Estim Creat Clear Calc 82.48 Est GFR (MDRD) Af Amer 138 Est GFR (MDRD) Non-Af 114 BUN/Creatinine Ratio 23.0 H Glucose 91 Calcium 10.1 Total Bilirubin Direct Bilirubin AST ALT Alkaline Phosphatase Troponin I 2.810 H* Total Protein Albumin Globulin Clinical Impression(s) from Imaging Studies Chest X-Ray 03/17/18 15:46 IMPRESSION: Large left pleural effusion, otherwise unremarkable. Electronically Signed: aMriama Saha MD at 16:32 EST Tel , Service support , Chest CTA 03/17/18 17:49 IMPRESSION: 1. No evidence of pulmonary embolus or aortic dissection. 2. Moderate to large bilateral pleural effusions. No change from the prior study. 3. Moderate to marked mediastinal and axillary adenopathy. No change from prior. Electronically Signed: Maraima Saha MD at 19:07 EST Tel , Service support , Assessment/Plan All Active Problems (Last Reviewed 03/13/18 @ 14:52 by Taty Veliz) Follicular lymphoma grade III (Acute) RECOMMENDATIONS: 1. Discontinue treatment strength Lovenox, as the patient was not noted to have a PE. 2. Hold all anticoagulation at this time, pending thoracentesis. Once completed, prophylactic dose Lovenox can be resumed. 3. Obtain stat coags. 4. Obtain ultrasound-guided thoracentesis. I have already discussed this case with radiology. 5. Send pleural fluid for cytology and flow cytometry. 6. Wean supplemental oxygen as tolerated to maintain a saturation of 90% or greater. Encourage incentive spirometer use. IMPRESSIONS: 1. Acute hypoxic respiratory insufficiency secondary to bilateral pleural effusions The etiology for the patient's pleural effusions are most likely malignant in nature and related to her newly diagnosed follicular lymphoma. She has never undergone a thoracentesis previously. Therefore, would recommend proceeding with a left-sided ultrasound-guided thoracentesis, which will be both therapeutic and diagnostic in nature. Send pleural fluid for cytology and flow cytometry. My hope is that with drainage of the left hemithorax, coupled with aggressive incentive spirometer use, the patient's shortness of breath and subsequent oxygenation will improve. Orders for ultrasound-guided thoracentesis and pleural fluid analysis have been placed. 2. Newly diagnosed follicular lymphoma Plans to initiate systemic chemotherapy soon as the patient has been stabilized from a medical perspective. 3. Troponin elevation Potential demand ischemia, as the patient's recent echocardiogram was unrevealing. Cardiology is currently following. Will defer management accordingly. This note was generated with [employer] dictation software. It may contain incorrect words, spelling, and punctuation that were not noted in checking the note before signing. UPDATE: Nursing staff made me aware that radiology is unable to perform the patient's thoracentesis this morning, as her Lovenox was not discontinued upon her admission to the hospital, and she was given a dose early this morning. Therefore, she will have to wait likely until tomorrow to have the procedure done. Code Visit Inpatient E&M: 65066 Init Hosp L3
[2018-03-18 07:58] LABS: ALB/GLOB Ratio 1.1 RATIO (0.9-2.4); Globulin 3.2 g/dL (2.2-4.2); LDH 324 U/L (84-246); Protein, Total 6.7 g/dL (6.4-8.2)
--- NOTE | 2018-03-18 08:02 | ECHOL_ITS ---
Reason For Study: S/P AR Procedure This was a limited 2D transthoracic echocardiogram. Myocardial strain analysis was performed in this exam to aid in the assessment of cardiac function. Exam performed portable in patient room. Left Ventricle Normal LV size. The estimated ejection fraction is 50 %. The global longitudinal strain = -13.7% (abnormal). There is mild global hypokinesis of the left ventricle. Right Ventricle Normal RV size. Normal systolic function. Atria Normal left atrium. Normal right atrium. Mitral Valve Normal mitral valve. Tricuspid Valve Normal tricuspid valve. Aortic Valve Trisinus/trileaflet aortic valve. Great Vessels Normal aortic root. The pulmonary artery is normal size. Normal inferior vena cava. Pericardium/Pleural Small pericardial effusion. Large left pleural effusion. MMode/2D Measurements & Calculations LVAd ap4: 27.0 cm2 SV(MOD-sp4): 38.8 ml SV(sp4-el): 39.2 ml EDV(MOD-sp4): 89.5 ml EDV(sp4-el): 91.7 ml LVAs ap4: 19.0 cm2 ESV(MOD-sp4): 50.7 ml ESV(sp4-el): 52.5 ml EF(MOD-sp4): 43.3 % EF(sp4-el): 42.7 % Interpretation Summary Normal LV size. The estimated ejection fraction is 50 %. The global longitudinal strain = -13.7% (abnormal). Small pericardial effusion. Large left pleural effusion. Ordering Physician: Matias Tapia Referring Physician: CATINA TEJADA Performed By: Maribel Sarkar RDCS
--- NOTE | 2018-03-18 08:05 | PCM.CONS.C ---
Reason for Consult Date of Consultation: 03/18/18 History of Present Illness: The patient is a 62 year old F with a past medical history of recently diagnosed follicular lymphoma and hypertension. She was admitted through the ED on 04-01 with a complaint of worsening shortness of breath for the past 2 weeks. She had associated orthopnea and exertional dyspnea. Symptoms worsen and so she decided to come to the ED. She was recently diagnosed with follicular lymphoma in January and had recently had a port put and was due to start chemotherapy next Saturday. She had an echocardiogram performed recently which demonstrated preserved ejection fraction of 65% and normal myocardial strain pattern. She denied any fever or chills, any cough or chest pain, any palpitations, any lightheadedness or dizziness, any abdominal pain, any diarrhea vomiting. Review of systems otherwise negative. In the ED, vitals showed respiratory rate of 20 she was saturating at 96% on 2 L of oxygen. Labs showed sodium of 135 and troponin of 3.44. EKG showed sinus rhythm with no acute ST changes. Chest x-ray showed a large left pleural effusion. CT angiogram showed moderate to large left pleural effusion and moderate right pleural effusion, with no change from prior study, moderate to market by mediastinal and axillary adenopathy and no evidence of pulmonary embolus or aortic dissection. She is been admitted to be managed for NST KAYLA and bilateral pleural effusions. She remains asymptomatic from the cardiac standpoint [] Past Medical History Allergies/Adverse Reactions: Allergies No Known Allergies Allergy (Verified 03/17/18 14:57) Home Medications: Ambulatory Orders Medication Instructions Recorded aspirin 81 mg tablet,delayed 81 mg PO DAILY 02/10/18 release omega-3 fatty acids 1,000 mg 1,000 mg PO DAILY 02/10/18 capsule Multivitamin [Multiple Vitamins] 1 tab PO DAILY 02/25/18 Aspirin E.C. 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 - *Family History Maternal Family History: Family History (Last Reviewed 03/13/18 @ 14:52 by Taty Veliz) Father Diabetes Arthritis Heart disease Kidney disease Stomach ulcer Hypertension Sister Diabetes Arthritis Heart disease Hypertension Thyroid disorder Mother Breast cancer Cancer Brother Diabetes Kidney disease Hypertension Lymphoma History Items: Cancer, Heart Disease Paternal Family History: Family History (Last Reviewed 03/13/18 @ 14:52 by Taty Veliz) Father Diabetes Arthritis Heart disease Kidney disease Stomach ulcer Hypertension Sister Diabetes Arthritis Heart disease Hypertension Thyroid disorder Mother Breast cancer Cancer Brother Diabetes Kidney disease Hypertension Lymphoma History Items: High Cholesterol, Heart Disease, Hypertension Sibling Family History: Family History (Last Reviewed 03/13/18 @ 14:52 by aTty Veliz) Father Diabetes Arthritis Heart disease Kidney disease Stomach ulcer Hypertension Sister Diabetes Arthritis Heart disease Hypertension Thyroid disorder Mother Breast cancer Cancer Brother Diabetes Kidney disease Hypertension Lymphoma History Items: Cancer Smoking Status: Former smoker Tobacco Use: Cigarettes Alcohol: None Drugs: None Subjectve: Patient seen and evaluated. Appears to be doing much better this morning Objective: Vital Signs Temp Pulse Resp BP Pulse Ox 98.6 F 82 20 H 119/74 93 03/18/18 03:00 03/18/18 06:59 03/18/18 03:00 03/18/18 03:00 03/18/18 07:50 Oxygen Flow Rate (L/min) 2 Oxygen Delivery Method Nasal Cannula Weight: 179 lb 10.828 oz Body Mass Index (BMI) 31.8 General: Ill Appearing HEENT: PERRL, EOMI, Sclera Non Icteric Oral: Moist Mucosa Neck: Supple, Good ROM, No Lymph Node Enlargement Lungs: Diminished Efra Bases, Dullness to Percussion-Left Cardiovascular: Regular Rhythm, Normal S1, Normal S2, No Murmurs, No Rubs, No Gallops Vascular: No Carotid Bruits, Normal Femoral Pulses, Normal Radial Pulses, Normal Dorsalis Pedal Pulse, Normal Posterior Tibial Pulses Abdomen: Bowel Sounds Present, Soft, Non Tender, No HSM, No Organomegaly Extremities: No Cyanosis, No Clubbing, No edema Musculoskeletal: No Erythema Skin: No Rashes Lymphatic: No Lymph Node Enlargement Neurological: No Focal Motor or Sensory Deficit Psych/Mental Status: Appropriate 03/17/18 16:57: WBC 9.2, RBC 4.64, Hgb 13.7, Hct 41.6, MCV 89.7, MCH 29.5, MCHC 32.9, RDW 15.1 H, RDW Differential 48.6 H, Plt Count 210, MPV 12.6 H, Immature Gran % (Auto) 0.200, Neut % (Auto) 77.0 H, Lymph % (Auto) 10.1 L, [place] % (Auto) 12.4 H, Eos % (Auto) 0.1, Baso % (Auto) 0.2, Absolute Neuts (auto) 7.1, Total Counted Not Reportable 03/17/18 16:57: Sodium 135 L, Potassium 3.9, Chloride 99, Carbon Dioxide 28.0, Anion Gap 8, BUN 13, Creatinine 0.59, Est GFR (MDRD) Af Amer 131, Est GFR (MDRD) Non-Af 109, BUN/Creatinine Ratio 22.0 H, Glucose 95, Calcium 9.9, Total Bilirubin 0.50, Direct Bilirubin 0.19, Troponin I 3.440 H* 03/17/18 20:52: Troponin I 3.110 H* 03/17/18 23:15: Troponin I 2.810 H* 03/18/18 06:00: WBC 7.0, RBC 4.46, Hgb 13.3, Hct 39.5, MCV 88.6, MCH 29.8, MCHC 33.7, RDW 14.9 H, RDW Differential 47.9 H, Plt Count 203, MPV 13.1 H, Immature Gran % (Auto) 0.100, Neut % (Auto) 69.5, Lymph % (Auto) 14.9 L, [place] % (Auto) 15.3 H, Eos % (Auto) 0.1, Baso % (Auto) 0.1, Absolute Neuts (auto) 4.9, Total Counted Not Reportable 03/18/18 06:00: Sodium 137, Potassium 4.0, Chloride 100, Carbon Dioxide 26.0, Anion Gap 11, BUN 13, Creatinine 0.57, Est GFR (MDRD) Af Amer 138, Est GFR (MDRD) Non-Af 114, BUN/Creatinine Ratio 23.0 H, Glucose 91, Calcium 10.1 Rhythm: EKG: Normal sinus rhythm with no acute changes Assessment/Plan 1. Non-ST elevation myocardial infarction It is unclear whether the above is secondary to plaque rupture or whether this is abnormal cardiac enzymes secondary to the tumor burden encroaching the pericardium or myocardium. At this time with the extensive tumor burden would recommend medical and noninvasive management Continue with aspirin Start statin Low-dose beta-alia Will not start clopidogrel Limited echocardiogram to reassess left ventricular function and guide therapy as it appears that the patient will be starting chemotherapy in the next few days. Discussed with rotary shear operator Thank you for allowing me to participate in the care of your patient. Please don't hesitate to call if any issues arise
--- NOTE | 2018-03-18 08:09 | CON.PCM_ITS ---
Reason for Consult Date of Consultation: 03/18/18 History of Present Illness: The patient is a 62 year old F with a past medical history of recently diagnosed follicular lymphoma and hypertension. She was admitted through the ED on 04-01 with a complaint of worsening shortness of breath for the past 2 weeks. She had associated orthopnea and exertional dyspnea. Symptoms worsen and so she decided to come to the ED. She was recently diagnosed with follicular lymphoma in January and had recently had a port put and was due to start chemotherapy next Saturday. She had an echocardiogram performed recently which demonstrated preserved ejection fraction of 65% and normal myocardial strain pattern. She d enied any fever or chills, any cough or chest pain, any palpitations, any lightheadedness or dizziness, any abdominal pain, any diarrhea vomiting. Review of systems otherwise negative. In the ED, vitals showed respiratory rate of 20 she was saturating at 96% on 2 L of oxygen. Labs showed sodium of 135 and troponin of 3.44. EKG showed sinus rhythm with no acute ST changes. Chest x- ray showed a large left pleural effusion. CT angiogram showed moderate to large left pleural effusion and moderate right pleural effusion, with no change from prior study, moderate to market by mediastinal and axillary adenopathy and no evidence of pulmonary embolus or aortic dissection. She is been admitted to be managed for NST KAYLA and bilateral pleural effusions. She remains asymptomatic from the cardiac standpoint [] Past Medical History Allergies/Adverse Reactions: Allergies No Known Allergies Allergy (Verified 03/17/18 14:57) Home Medications: Ambulatory Orders Medication Instructions Recorded aspirin 81 mg tablet,delayed 81 mg PO DAILY 02/10/18 release omega-3 fatty acids 1,000 mg 1,000 mg PO DAILY 02/10/18 capsule Multivitamin [Multiple Vitamins] 1 tab PO DAILY 02/25/18 Aspirin E.C. 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 - *Family History Maternal Family History: Family History (Last Reviewed 03/13/18 @ 14:52 by Taty Veliz) Father Diabetes Arthritis Heart disease Kidney disease Stomach ulcer Hypertension Sister Diabetes Arthritis Heart disease Hypertension Thyroid disorder Mother Breast cancer Cancer Brother Diabetes Kidney disease Hypertension Lymphoma History Items: Cancer, Heart Disease Paternal Family History: Family History (Last Reviewed 03/13/18 @ 14:52 by Taty Veliz) Father Diabetes Arthritis Heart disease Kidney disease Stomach ulcer Hypertension Sister Diabetes Arthritis Heart disease Hypertension Thyroid disorder Mother Breast cancer Cancer Brother Diabetes Kidney disease Hypertension Lymphoma History Items: High Cholesterol, Heart Disease, Hypertension Sibling Family History: Family History (Last Reviewed 03/13/18 @ 14:52 by Taty Veliz) Father Diabetes Arthritis Heart disease Kidney disease Stomach ulcer Hypertension Sister Diabetes Arthritis Heart disease Hypertension Thyroid disorder Mother Breast cancer Cancer Brother Diabetes Kidney disease Hypertension Lymphoma History Items: Cancer Smoking Status: Former smoker Tobacco Use: Cigarettes Alcohol: None Drugs: None Subjectve: Patient seen and evaluated. Appears to be doing much better this morning Objective: Vital Signs Temp Pulse Resp BP Pulse Ox 98.6 F 82 20 H 119/74 93 03/18/18 03:00 03/18/18 06:59 03/18/18 03:00 03/18/18 03:00 03/18/18 07:50 Oxygen Flow Rate (L/min) 2 Oxygen Delivery Method Nasal Cannula Weight: 179 lb 10.828 oz Body Mass Index (BMI) 31.8 General: Ill Appearing HEENT: PERRL, EOMI, Sclera Non Icteric Oral: Moist Mucosa Neck: Supple, Good ROM, No Lymph Node Enlargement Lungs: Diminished Efra Bases, Dullness to Percussion-Left Cardiovascular: Regular Rhythm, Normal S1, Normal S2, No Murmurs, No Rubs, No Gallops Vascular: No Carotid Bruits, Normal Femoral Pulses, Normal Radial Pulses, Normal Dorsalis Pedal Pulse, Normal Posterior Tibial Pulses Abdomen: Bowel Sounds Present, Soft, Non Tender, No HSM, No Organomegaly Extremities: No Cyanosis, No Clubbing, No edema Musculoskeletal: No Erythema Skin: No Rashes Lymphatic: No Lymph Node Enlargement Neurological: No Focal Motor or Sensory Deficit Psych/Mental Status: Appropriate 03/17/18 16:57: WBC 9.2, RBC 4.64, Hgb 13.7, Hct 41.6, MCV 89.7, MCH 29.5, MCHC 32.9, RDW 15.1 H, RDW Differential 48.6 H, Plt Count 210, MPV 12.6 H, Immature Gran % (Auto) 0.200, Neut % (Auto) 77.0 H, Lymph % (Auto) 10.1 L, [place] % (Auto) 12.4 H, Eos % (Auto) 0.1, Baso % (Auto) 0.2, Absolute Neuts (auto) 7.1, Total Counted Not Reportable 03/17/18 16:57: Sodium 135 L, Potassium 3.9, Chloride 99, Carbon Dioxide 28.0, Anion Gap 8, BUN 13, Creatinine 0.59, Est GFR (MDRD) Af Amer 131, Est GFR (MDRD) Non-Af 109, BUN/Creatinine Ratio 22.0 H, Glucose 95, Calcium 9.9, Total Bilirubin 0.50, Direct Bilirubin 0.19, Troponin I 3.440 H* 03/17/18 20:52: Troponin I 3.110 H* 03/17/18 23:15: Troponin I 2.810 H* 03/18/18 06:00: WBC 7.0, RBC 4.46, Hgb 13.3, Hct 39.5, MCV 88.6, MCH 29.8, MCHC 33.7, RDW 14.9 H, RDW Differential 47.9 H, Plt Count 203, MPV 13.1 H, Immature Gran % (Auto) 0.100, Neut % (Auto) 69.5, Lymph % (Auto) 14.9 L, [place] % (Auto) 15.3 H, Eos % (Auto) 0.1, Baso % (Auto) 0.1, Absolute Neuts (auto) 4.9, Total Counted Not Reportable 03/18/18 06:00: Sodium 137, Potassium 4.0, Chloride 100, Carbon Dioxide 26.0, Anion Gap 11, BUN 13, Creatinine 0.57, Est GFR (MDRD) Af Amer 138, Est GFR (MDRD) Non-Af 114, BUN/Creatinine Ratio 23.0 H, Glucose 91, Calcium 10.1 Rhythm: EKG: Normal sinus rhythm with no acute changes Assessment/Plan 1. Non-ST elevation myocardial infarction * It is unclear whether the above is secondary to plaque rupture or whether this is abnormal cardiac enzymes secondary to the tumor burden encroaching the pericardium or myocardium. * At this time with the extensive tumor burden would recommend medical and noninvasive management * Continue with aspirin * Start statin * Low-dose beta-alia * Will not start clopidogrel * Limited echocardiogram to reassess left ventricular function and guide therapy as it appears that the patient will be starting chemotherapy in the next few days. * * Discussed with wooden tank erector * * Thank you for allowing me to participate in the care of your patient. Please don't hesitate to call if any issues arise
[2018-03-18] MEDS: Omega-3 Acid Ethyl Esters 1 GM Capsule PO (08:12)
[2018-03-18] MEDS: Aspirin E.C. 81 MG Tablet PO (08:12)
[2018-03-18] MEDS: Multivitamins,Therapeutic Tablet 1 TABLET PO (08:12)
[2018-03-18 08:56] LABS: Prothrombin Time (Protime)PT. 13.2 SECONDS (11.7-14.9)
[2018-03-18 08:57] LABS: Partial Thromboplast Time 36.9 Seconds (24.1-36.2)
[2018-03-18] MEDS: Metoprolol(XL)Succ 25 MG Tablet PO (10:29)
--- NOTE | 2018-03-18 11:24 | PCM.PN.HOSP ---
Subjective: Patient is a 62-year-old lady recently diagnosed with follicular lymphoma scheduled to initiate chemotherapy who presented with progressive shortness of breath. Patient was found to have elevated troponin consistent with acute non-STEMI in addition to bilateral moderate to large pleural effusion. Admitted to a monitored bed with consultation placed to both pulmonary medicine as well as cardiology. Patient is scheduled to undergo ultrasound-guided thoracocentesis on 03/19/2018. Objective: GENERAL: cooperative dyspneic at rest HEENT: Atraumatic; moist oral mucosa EYES; Anicteric, Normal Conjunctiva NECK; supple, normal thyroid, no distended JVD. RESPIRATORY: Diminished to auscultation bilaterally, CARDIOVASCULAR: Regular S1 S2, no audible murmurs GI: soft, non-tender, normoactive bowel sounds, : No Renal angle tenderness; EXTREMITIES: 2+ bilateral edema, no clubbing, no cyanosis. MUSCULOSKELETAL: No Joint Tenderness; NEURO: Awake; no lateralizing signs. SKIN: No Rash PSYCH; Normal affect Vitals/I&O's: Vital Signs Temp Pulse Resp BP Pulse Ox 98.8 F 91 18 135/76 H 95 03/18/18 10:30 03/18/18 10:30 03/18/18 10:30 03/18/18 10:30 03/18/18 10:30 Oxygen Flow Rate (L/min) 2 Oxygen Delivery Method Nasal Cannula Weight: 81.5 kg Body Mass Index (BMI) 31.8 Laboratory Results 03/17/18 16:57: WBC 9.2, RBC 4.64, Hgb 13.7, Hct 41.6, MCV 89.7, MCH 29.5, MCHC 32.9, RDW 15.1 H, RDW Differential 48.6 H, Plt Count 210, MPV 12.6 H, Immature Gran % (Auto) 0.200, Neut % (Auto) 77.0 H, Lymph % (Auto) 10.1 L, [place] % (Auto) 12.4 H, Eos % (Auto) 0.1, Baso % (Auto) 0.2, Absolute Neuts (auto) 7.1, Absolute Lymphs (auto) 0.93, Total Counted Not Reportable 03/17/18 16:57: Sodium 135 L, Potassium 3.9, Chloride 99, Carbon Dioxide 28.0, Anion Gap 8, BUN 13, Creatinine 0.59, Estim Creat Clear Calc 79.69, Est GFR (MDRD) Af Amer 131, Est GFR (MDRD) Non-Af 109, BUN/Creatinine Ratio 22.0 H, Glucose 95, Calcium 9.9, Total Bilirubin 0.50, Direct Bilirubin 0.19, AST 45 H, ALT 22, Alkaline Phosphatase 73, Troponin I 3.440 H*, Total Protein 7.0, Albumin 3.6, Globulin 3.4 03/17/18 20:52: Troponin I 3.110 H* 03/17/18 23:15: Troponin I 2.810 H* 03/18/18 06:00: WBC 7.0, RBC 4.46, Hgb 13.3, Hct 39.5, MCV 88.6, MCH 29.8, MCHC 33.7, RDW 14.9 H, RDW Differential 47.9 H, Plt Count 203, MPV 13.1 H, Immature Gran % (Auto) 0.100, Neut % (Auto) 69.5, Lymph % (Auto) 14.9 L, [place] % (Auto) 15.3 H, Eos % (Auto) 0.1, Baso % (Auto) 0.1, Absolute Neuts (auto) 4.9, Absolute Lymphs (auto) 1.04, Total Counted Not Reportable 03/18/18 06:00: Sodium 137, Potassium 4.0, Chloride 100, Carbon Dioxide 26.0, Anion Gap 11, BUN 13, Creatinine 0.57, Estim Creat Clear Calc 82.48, Est GFR (MDRD) Af Amer 138, Est GFR (MDRD) Non-Af 114, BUN/Creatinine Ratio 23.0 H, Glucose 91, Calcium 10.1 03/18/18 06:00: Lactate Dehydrogenase 324 H, Total Protein 6.7, Globulin 3.2, Albumin/Globulin Ratio 1.1 03/18/18 07:50: PT Cancelled, INR Cancelled, APTT Cancelled 03/18/18 08:40: PT 13.2, INR 1.0, APTT 36.9 H Current Medications Hydrocodone Bitart/Acetaminophen ([place] 5mg-325mg) 1 tablet PO Q6H PRN PRN PRN Reason: PAIN Aspirin (Ecotrin) 81 mg PO DAILY@0800 [facility] Last Admin: 03/18/18 08:12 Dose: 81 mg Atorvastatin Calcium (Lipitor) 40 mg PO QHS [facility] Last Admin: 03/17/18 21:35 Dose: Not Given Furosemide (Lasix) 40 mg IV BID@1000,1800 [facility] Magnesium Hydroxide (Milk Of Magnesia) 30 ml PO DAILY PRN PRN PRN Reason: Constipation Metoprolol Succinate (Toprol Xl (Beta [place])) 25 mg PO DAILY [facility] Last Admin: 03/18/18 10:29 Dose: 25 mg Multivitamins (Multivitamin) 1 tablet PO DAILY@0800 [facility] Last Admin: 03/18/18 08:12 Dose: 1 tablet Nitroglycerin (Nitrostat) 0.4 mg SUBLINGUAL Q5M PRN PRN Reason: CARDIAC/CHEST PAIN Rgxzc-7-Gfhe Ethyl Esters (Lovaza) 1 gm PO DAILY [facility] Last Admin: 03/18/18 08:12 Dose: 1 gm Medical Necessity - Tobacco Use Smoking Status: Former smoker Tobacco Use: Cigarettes Assessment/Plan All Active Problems (Last Reviewed 03/13/18 @ 14:52 by Taty Veliz) Follicular lymphoma grade III (Acute) Patient is a 62-year-old lady recently diagnosed with follicular lymphoma scheduled to initiate chemotherapy who presented with progressive shortness of breath. Patient was found to have elevated troponin consistent with acute non-STEMI in addition to bilateral moderate to large pleural effusion. Admitted to a monitored bed with consultation placed to both pulmonary medicine as well as cardiology. Patient is scheduled to undergo ultrasound-guided thoracocentesis on 03/19/2018. 1. Acute respiratory insufficiency secondary to bilateral pleural effusion suspected to be malignant in nature. Do also suspect a component of acute diastolic heart failure. Patient started on Lasix. Consult placed to pulmonary medicine patient seen recommendation is for patient to undergo thoracocentesis scheduled to be performed on 03/19/2018 2. Acute diastolic congestive heart failure patient started on Lasix monitoring strict input and output. An echo obtained on 03/07/2018 demonstrated ejection fraction of 60% with a pulmonary artery systolic pressure of 33 mmHg 3. Acute non-STEMI: Troponin peaked at 3.4. Admitted to a monitored bed patient treated medically at this point with starting therapy aspirin as well as beta-blockers. Consultation was placed to cardiology patient seen by Dr. Tapia is noted recommendations reviewed 4. Follicular lymphoma grade 3 recently diagnosed patient is scheduled to initiate chemotherapy on 03/19/2018 which may need to be postponed in view of patient being admitted to the hospital patient is followed by Dr Noyola 5. DVT prophylaxis SC Lovenox Active Medications Hydrocodone Bitart/Acetaminophen ([place] 5mg-325mg) 1 tablet PO Q6H PRN PRN PRN Reason: PAIN Aspirin (Ecotrin) 81 mg PO DAILY@0800 [facility] Last Admin: 03/18/18 08:12 Dose: 81 mg Atorvastatin Calcium (Lipitor) 40 mg PO QHS [facility] Last Admin: 03/17/18 21:35 Dose: Not Given Furosemide (Lasix) 40 mg IV BID@1000,1800 [facility] Magnesium Hydroxide (Milk Of Magnesia) 30 ml PO DAILY PRN PRN PRN Reason: Constipation Metoprolol Succinate (Toprol Xl (Beta [place])) 25 mg PO DAILY [facility] Last Admin: 03/18/18 10:29 Dose: 25 mg Multivitamins (Multivitamin) 1 tablet PO DAILY@0800 [facility] Last Admin: 03/18/18 08:12 Dose: 1 tablet Nitroglycerin (Nitrostat) 0.4 mg SUBLINGUAL Q5M PRN PRN Reason: CARDIAC/CHEST PAIN Inumw-5-Tapy Ethyl Esters (Lovaza) 1 gm PO DAILY [facility] Last Admin: 03/18/18 08:12 Dose: 1 gm Clinical Impression(s) from Imaging Studies Chest X-Ray 03/17/18 15:46 IMPRESSION: Large left pleural effusion, otherwise unremarkable. Electronically Signed: Mariama Saha MD at 16:32 EST Tel , Service support , Chest CTA 03/17/18 17:49 IMPRESSION: 1. No evidence of pulmonary embolus or aortic dissection. 2. Moderate to large bilateral pleural effusions. No change from the prior study. 3. Moderate to marked mediastinal and axillary adenopathy. No change from prior. Electronically Signed: Mariama Saha MD at 19:07 EST Tel , Service support , Code Visit Inpatient E&M: [id number] Subs Hosp L3
--- NOTE | 2018-03-18 11:52 | CASEMGMT ---
MARCELLUS HARRIS assessment: Face to Face with patient for initial transition planning/care coordination assessment. MARCELLUS HARRIS introduced self and role at [facility], pt voices understanding and consents to assessment at this time. Pt is sitting up in bed in no distress at this time. Pt is A/Ox4 at this time and answers all questions appropriately at this time. Care providers, pharmacy, and demographics verified at this time. PCP: Ciro Specialists: Dennys-onc Preferred Pharmacy: [facility] retail pharm Insurance: [id number] Prescription Benefit: [id number] Living Will/HPOA: Pt states does not have LW/HPOA but is interested in completing but would like to speak with first. Pt provided with the Search Engine Optimization Consultant pamphlet at this time. LNOK: Dennis Corrigan, Living Arrangements: Pt states lives with on main level of 2 story home and states no concerns at home at this time. Transportation: Pt states drives self and states no transportation concerns at this time. DME/HHC: Pt states no current DME or need for any at this time. Pt states no hx of HHC or SNF in the past. Pt states no concerns with going home at time of discharge. Pt states is unemployed. Pt states quit smoking 4 weeks ago and states does not drink ETOH. Pt states no further concerns/needs at this time. CM to follow for any further discharge planning/needs and home oxygen. Advised pt to ask for CM if any further questions/concerns/needs arise, voices understanding. Plan: Home [place] MARCELLUS HARRIS
[2018-03-18] MEDS: Furosemide 100 MG/10 ML Vial 80 MG IV (12:32)
[2018-03-18 14:12] LABS: BNP,B-Type NATRIURETIC PEPTIDE 480.2 pg/mL (0-100)
[2018-03-18] MEDS: Furosemide 40 MG/4 ML Vial IV (18:57)
[2018-03-19] VITALS (15 sets, daily range): BP systolic 105–132; BP diastolic 53–68; PULSE 64–88; RESP 16–18; TEMP 36.4–36.9; O2SAT 94–97
--- NOTE | 2018-03-19 | IMM_PTH ---
PATIENT: GULSHAN HANSON LOC: PCU U#:[id number] AGE/SX: 62/F ROOM: [facility] RE03/17/[address]: Dr. Elmer Vuong MD : [id number] BED: 1 DIS: 03/20/2018 SPEC #: [id number] RECD: 03/20/18 13:59 STATUS: SUMEET REQ #: [id number] OFELIA: 03/19/18 00:[address]: Elmer Vuong DEPT: IMMUNOHISTOCHEMISTRY RECD BY: Loree Salgado ENTERED: 03/20/18 14:00 SP TYPE: IMMUNO OTHR DR: MD Dr. Alfred Mo DO Dr. John E Schinner, MD Dr. Mansour Isckarus, MD Dr. Nana Yaa Koram, MD Tissues: THORACIC FLUID Procedures: BCL-2 (add) BCL-6 (add) CD10 (add) CD138 (add) CD20 (add) CD45 (add) CD5 (add) CD79A (add) MUM1 (add) CD3 (initial) PHYSICIAN & [place] [id number] SPECIMEN INFORMATION: Tissue Source: Thoracentesis fluid Clinical Info: Pleural effusion Specimen Number: [id number] CPT code: 78878, 16058 x9 METHODOLOGY: Deparaffinized sections of prefer/formalin-fixed tissue or PAP/DQ stained slides are incubated with monoclonal/polyclonal antibodies/oligonucleotide probes. Localization is made via biotin free immunoperoxidase method. Appropriate controls are performed and reacted as expected. Results on target cell population are indicated in the following table: RESULTS: ANTIBODY / CLONE RESULT CD3 (PS1) positive CD5 (SP10) positive CD20 (L26) positive, occasional CD45 (RP2/18) positive CD79a (11E3) positive CD138 (B-A38) negative CD10 (56C6) positive, rare BCL-2 (bcl-2/100/D5) positive, rare BCL-6 (TU193B/A8) negative MUM1 (MRQ-43) negative These tests were developed and their performance characteristics determined by [facility]. They may not have been cleared or approved by the U.S. Food and Drug Administration. The FDA has determined that such clearance or approval is not necessary. INTERPRETATION: Thoracentesis fluid: Polytypic lymphoid cells. AM:reno 03/21/18 AM:reno 03/26/18
--- NOTE | 2018-03-19 | IMM_PTH ---
PATIENT: GULSHAN HANSON LOC: PCU U#:[id number] AGE/SX: 62/F ROOM: [facility] RE03/17/[address]: Dr. Elmer Vuong MD : 1955 BED: 1 DIS: 03/20/2018 SPEC #: [id number] RECD: 03/20/18 13:59 STATUS: SUMEET REQ #: [id number] OFELIA: 03/19/18 00:[address]: Elmer Vuong DEPT: IMMUNOHISTOCHEMISTRY RECD BY: Loree Salgado ENTERED: 03/20/18 14:00 SP TYPE: IMMUNO OTHR DR: MD Dr. Alfred Mo DO Dr. John E Schinner, MD Dr. Mansour Isckarus, MD Dr. Nana Yaa Koram, MD Tissues: THORACIC FLUID Procedures: CD138 (add) CD20 (add) CD45 (add) CD5 (add) CD79A (add) CD3 (initial) PHYSICIAN & [address] [address] SPECIMEN INFORMATION: Tissue Source: Thoracentesis fluid Clinical Info: Pleural effusion Specimen Number: [id number] CPT code: 58171, 46743 x5 METHODOLOGY: Deparaffinized sections of prefer/formalin-fixed tissue or PAP/DQ stained slides are incubated with monoclonal/polyclonal antibodies/oligonucleotide probes. Localization is made via biotin free immunoperoxidase method. Appropriate controls are performed and reacted as expected. Results on target cell population are indicated in the following table: RESULTS: ANTIBODY / CLONE RESULT CD3 (PS1) positive CD5 (SP10) positive CD20 (L26) positive, occasional CD45 (RP2/18) positive CD79a (11E3) positive CD138 (B-A38) negative These tests were developed and their performance characteristics determined by [facility]. They may not have been cleared or approved by the U.S. Food and Drug Administration. The FDA has determined that such clearance or approval is not necessary. INTERPRETATION: Thoracentesis fluid: Polytypic (benign) lymphoid cells. AM:reno 03/21/18
--- NOTE | 2018-03-19 | FLU_PTH ---
PATIENT: GULSHAN HANSON LOC: [facility] U#:[id number] AGE/SX: 62/F ROOM: [facility] RE03/17/[address]: Dr. Elmer Vuong MD : 1955 BED: 1 DIS: 03/20/2018 SPEC #: [id number] RECD: 03/19/18 13:44 STATUS: SUMEET REQ #: [id number] OFELIA: 03/19/18 00:[address]: Elmer Vuong DEPT: CYTOLOGY RECD BY: Rodney Veliz ENTERED: 03/19/18 13:44 SP TYPE: Fluid OTHR DR: MD Dr. Alfred Mo DO Dr. John E Schinner, MD Dr. Mansour Isckarus, MD Dr. Nana Yaa Koram, MD Tissues: THORACIC FLUID Procedures: Pap Stain (control) Special Stain Group II Surgery Specimen Level IV Cell Block Cytospin Fluid HEADER OPERATION: Ultrasound-guided left thoracentesis PRE-OP DIAGNOSIS: Pleural effusion TISSUE SUBMITTED: Thoracentesis fluid for cytology DIAGNOSIS CYTOLOGY Thoracentesis fluid for cytology (cytospin and cell block): Negative for malignant cells. AM:reno 03/20/18 COMMENT Polymorphous lymphocytes with reactive mesothelial cells are present. Immunohistochemistry ([id number]) supports the above diagnosis. CYTOLOGY STUDY Slides are reviewed. CYTOLOGY GROSS Received is 60 ml of cloudy red fluid labeled with the patient's name and and designated per the requisition as thoracentesis. Submitted for cytology preparation including cell block. / 03/19/18 TC:5 CPT: 36199, 09482
[2018-03-19 06:48] LABS: Hematocrit 40.8 % (37-47); Hemoglobin 13.9 g/dl (12.0-15.0); Mean Corp Hgb Conc 34.1 g/gl (32-36); Mean Corpuscular Hgb 30.3 pg (27.0-32.0); Mean Corpuscular Volume 89.1 fL (81-99); Mean Platelet Vol. 12.7 fl (6.2-12.0); Platelet Count 202 K/mm3 (150-450); RBC Distribution Width CV 14.9 % (11.6-14.6); RBC Distribution Width SD 49.1 fl (35.1-43.9); Red Blood Count 4.58 M/mm3 (4.2-5.4); White Blood Count 8.9 K/mm3 (4.4-11.0)
--- NOTE | 2018-03-19 06:51 | PN.CARD_ITS ---
Subjectve: Patient seen and evaluated. Appears to be breathing a little better. Objective: Vital Signs Temp Pulse Resp BP Pulse Ox 97.5 F L 84 18 132/66 H 97 03/19/18 05:15 03/19/18 05:15 03/19/18 05:15 03/19/18 05:15 03/19/18 05:15 Oxygen Flow Rate (L/min) 2 Oxygen Delivery Method Nasal Cannula Weight: 178 lb 12.718 oz Body Mass Index (BMI) 31.8 Intake and Output for Last 24 Hours 03/17/18 03/18/18 03/19/18 23:59 23:59 23:59 Intake Total 665 / 665 360 / 360 Output Total 1425 / 1425 1050 / 1050 Balance -760 / -760 -690 / -690 General: Awake, Alert, Oriented x 3 HEENT: PERRL, EOMI, Sclera Non Icteric Neck: Supple, Good ROM, No Lymph Node Enlargement Lungs: Diminished Efra Bases Cardiovascular: Regular Rhythm, Normal S1, Normal S2, No Murmurs, No Rubs, No Gallops Vascular: No Carotid Bruits, Normal Femoral Pulses, Normal Radial Pulses, Normal Dorsalis Pedal Pulse, Normal Posterior Tibial Pulses Abdomen: Bowel Sounds Present, Soft, Non Tender, No HSM, No Organomegaly Extremities: No Cyanosis, No Clubbing, No edema Skin: No Rashes Lymphatic: No Lymph Node Enlargement Neurological: No Focal Motor or Sensory Deficit Psych/Mental Status: Appropriate 03/18/18 06:00: WBC 7.0, RBC 4.46, Hgb 13.3, Hct 39.5, MCV 88.6, MCH 29.8, MCHC 33.7, RDW 14.9 H, RDW Differential 47.9 H, Plt Count 203, MPV 13.1 H, Immature Gran % (Auto) 0.100, Neut % (Auto) 69.5, Lymph % (Auto) 14.9 L, Mcdowell % (Auto) 15.3 H, Eos % (Auto) 0.1, Baso % (Auto) 0.1, Absolute Neuts (auto) 4.9, Total Counted Not Reportable 03/18/18 06:00: Sodium 137, Potassium 4.0, Chloride 100, Carbon Dioxide 26.0, Anion Gap 11, BUN 13, Creatinine 0.57, Est GFR (MDRD) Af Amer 138, Est GFR (MDRD) Non-Af 114, BUN/Creatinine Ratio 23.0 H, Glucose 91, Calcium 10.1 03/18/18 06:00: B-Natriuretic Peptide 480.2 H 03/18/18 07:50: PT Cancelled, INR Cancelled, APTT Cancelled 03/18/18 08:40: PT 13.2, INR 1.0, APTT 36.9 H Rhythm: EKG: ECHO: Stress Test: Cardiac Cath: PCI: CT Surgery: Holter monitor: EPS: PPM: CXR: Chest CT Scan: Medical Necessity - Tobacco Use Smoking Status: Former smoker Tobacco Use: Cigarettes Assessment/Plan 1. Non-ST elevation myocardial infarction * It is unclear whether the above is secondary to plaque rupture or whether this is abnormal cardiac enzymes secondary to the tumor burden encroaching the pericardium or myocardium. * At this time with the extensive tumor burden would recommend medical and noninvasive management * Continue with aspirin * Start statin * Low-dose beta-alia * Will not start clopidogrel * Echocardiogram demonstrated mild global reduction in left ventricular ejection fraction with a small pericardial effusion. No evidence of tamponade * We will not pursue any invasive management at this time and would continue treatment of underlying pulmonary issues. * * Thank you for allowing me to participate in the care of your patient. Please don't hesitate to call if any issues arise
[2018-03-19 06:53] LABS: Scan Indicated on CBC? Y/N NO
[2018-03-19 06:56] LABS: Anion Gap 6 (5-15); BUN 15 mg/dL (7-18); BUN/Creat Ratio 24.8 RATIO (10-20); Calcium,Total 10.5 mg/dL (8.5-10.1); Chloride 99 mmol/L (98-107); Creatinine, Serum 0.61 mg/dL (0.55-1.02); EST Glomerular Filtration Rate 106 mL/min (>60); Est Glom Filt Rate - Afr Amer 128 mL/min (>60); Estimated Creatinine Clearance 77.07 ml/min; Glucose 84 mg/dL (74-106); Magnesium 2.1 mg/dL (1.6-2.6); Potassium 3.6 mmol/L (3.5-5.1); Sodium Level 134 mmol/L (136-145)
[2018-03-19] MEDS: Aspirin E.C. 81 MG Tablet PO (08:57)
[2018-03-19] MEDS: Multivitamins,Therapeutic Tablet 1 TABLET PO (08:57)
[2018-03-19] MEDS: Allopurinol 300 MG Tablet PO (09:00)
[2018-03-19] MEDS: Metoprolol(XL)Succ 25 MG Tablet PO (09:00)
[2018-03-19] MEDS: Omega-3 Acid Ethyl Esters 1 GM Capsule PO (09:01)
[2018-03-19] MEDS: Furosemide 40 MG/4 ML Vial IV ×2 (09:01→17:18)
--- NOTE | 2018-03-19 09:30 | US_ITS ---
PROCEDURE: ULTRASOUND GUIDED THORACENTESIS. DATE: March 19, 2018.. INDICATION: Female, 62 years old. Left pleural effusion. PHYSICIAN: Denny Juarez M.D. PROCEDURE: The risks, benefits, and alternatives to the procedure were explained to the patient. The specific risks of bleeding, infection, and pneumothorax requiring chest tube insertion were discussed and accepted. Written informed consent was obtained. Ultrasonographic evaluation of the left lower pleural space was carried out. An adequate pocket was identified. The patient was placed in the sitting, upright position. The overlying skin was prepped and draped in sterile fashion. 1% lidocaine was administered subcutaneously for local anesthesia. Under ultrasound guidance, a 5 Italian thoracentesis needle/catheter system was advanced into the left posterior lower pleural fluid collection. Approximately 1770 mL of blood-tinged fluid was drained. The catheter was removed, and a sterile dressing was applied. A specimen was collected and sent to the laboratory for analysis, as requested by the referring clinician. The patient tolerated the procedure well. A chest x-ray was ordered. US/Thoracentesis W US IMPRESSION: Ultrasound-guided left thoracentesis. Electronically Signed: Denny Juarez MD at 13:07 EST Tel [phone], Service support ,
--- NOTE | 2018-03-19 09:43 | PCM.PROGNOTE ---
Subjective: The patient was seen and examined at the bedside this morning. Events from the last 24 hours have been reviewed. The patient is currently afebrile, hemodynamically stable and maintaining appropriate oxygen saturations on 2 L/min via nasal cannula. The patient was diuresed over the last 24 hours and has had improvement in her breathing quality noted. She is currently scheduled to undergo a thoracentesis today. Objective: The patient's most recent lab work, culture data and imaging studies have all been personally reviewed. A CTA chest was obtained which revealed no evidence for pulmonary embolism. There was again evidence of moderate to large bilateral pleural effusions, unchanged from the patient's previous study along with marked mediastinal and axillary adenopathy. Surface echocardiogram revealed normal LV size and function with an ejection fraction of 50%. There was mild global hypokinesis of the LV. - Physical Exam General: Alert, Oriented x3, Cooperative, No apparent distress HEENT: Atraumatic, PERRLA, EOMI Oral: Moist Mucosa, No Gingival or Mucosal Lesions/ Ulcerations Neck: Supple, No Nodes, Trachea Midline Lungs: No rhonchi, No wheeze, No rales, Diminished Cardiovascular: Regular rate, Regular Rhythm, Normal S1, Normal S2, No murmurs Abdomen: Bowel Sounds Present, Soft, Non Tender, Non-Distended Extremities: No clubbing, No cyanosis, No edema Skin: No breakdown Musculoskeletal: No Tenderness to Palpation of Joints or Extremities Neurological: Cranial nerves II-XII grossly intact, Neuro grossly intact Psych/Mental Status: Alert and oriented to time, place, person, mood and affect Vital Signs Temp Pulse Resp BP Pulse Ox 36.6 C 75 18 117/66 96 03/19/18 08:52 03/19/18 09:00 03/19/18 08:52 03/19/18 09:00 03/19/18 08:52 Oxygen Flow Rate (L/min) 2 Oxygen Delivery Method Nasal Cannula Weight: 178 lb 12.718 oz Body Mass Index (BMI) 31.8 Intake and Output for Last 24 Hours 03/17/18 03/18/18 03/19/18 23:59 23:59 23:59 Intake Total 665 / 665 360 / 360 Output Total 1425 / 1425 1050 / 1050 Balance -760 / -760 -690 / -690 Laboratory Tests Past 24 Hrs 03/18/18 03/19/1818 06:00 06:00 06:00 WBC 8.9 RBC 4.58 Hgb 13.9 Hct 40.8 MCV 89.1 MCH 30.3 MCHC 34.1 RDW 14.9 H RDW Differential 49.1 H Plt Count 202 MPV 12.7 H Sodium 134 L Potassium 3.6 Chloride 99 Carbon Dioxide 29.0 Anion Gap 6 BUN 15 Creatinine 0.61 Estim Creat Clear Calc 77.07 Est GFR (MDRD) Af Amer 128 Est GFR (MDRD) Non-Af 106 BUN/Creatinine Ratio 24.8 H Glucose 84 Calcium 10.5 H Magnesium 2.1 B-Natriuretic Peptide 480.2 H Clinical Impression(s) from Imaging Studies Chest X-Ray 03/17/18 15:46 IMPRESSION: Large left pleural effusion, otherwise unremarkable. Electronically Signed: Mariama Saha MD at 16:32 EST Tel , Service support , Chest CTA 03/17/18 17:49 IMPRESSION: 1. No evidence of pulmonary embolus or aortic dissection. 2. Moderate to large bilateral pleural effusions. No change from the prior study. 3. Moderate to marked mediastinal and axillary adenopathy. No change from prior. Electronically Signed: Mariama Saha MD at 19:07 EST Tel , Service support , Clinical Impression(s) from Imaging Studies Chest X-Ray 03/17/18 15:46 IMPRESSION: Large left pleural effusion, otherwise unremarkable. Electronically Signed: Mariama Saha MD at 16:32 EST Tel , Service support , Chest CTA 03/17/18 17:49 IMPRESSION: 1. No evidence of pulmonary embolus or aortic dissection. 2. Moderate to large bilateral pleural effusions. No change from the prior study. 3. Moderate to marked mediastinal and axillary adenopathy. No change from prior. Electronically Signed: Mariama Saha MD at 19:07 EST Tel , Service support , Medical Necessity - Tobacco Use Smoking Status: Former smoker Tobacco Use: Cigarettes Assessment/Plan All Active Problems (Last Reviewed 03/13/18 @ 14:52 by Taty Veliz) Follicular lymphoma grade III (Acute) RECOMMENDATIONS: 1. Continue to hold DVT prophylaxis Lovenox until after thoracentesis. 2. Continue to wean supplemental oxygen to maintain saturations at or above 90%. 3. Ultrasound-guided thoracentesis is pending. 4. Continue diuretics as tolerated. 5. Encourage incentive spirometer use and mobilize patient as tolerated. IMPRESSIONS: 1. Acute hypoxic respiratory insufficiency secondary to bilateral pleural effusions The etiology for the patient's pleural effusions are most likely malignant in nature and related to her newly diagnosed follicular lymphoma. She has never undergone a thoracentesis previously. Therefore, would recommend proceeding with a left-sided ultrasound-guided thoracentesis, which will be both therapeutic and diagnostic in nature. Send pleural fluid for cytology and flow cytometry. My hope is that with drainage of the left hemithorax, coupled with aggressive incentive spirometer use and gentle diuresis, the patient's shortness of breath and subsequent oxygenation will improve. Orders for ultrasound-guided thoracentesis and pleural fluid analysis have been placed. 2. Newly diagnosed follicular lymphoma Plans to initiate systemic chemotherapy as soon as the patient has been stabilized from a medical perspective. 3. Troponin elevation Potential demand ischemia, as the patient's recent echocardiogram was unrevealing. Cardiology is currently following. Will defer management accordingly. This note was generated with [employer] dictation software. It may contain incorrect words, spelling, and punctuation that were not noted in checking the note before signing. Code Visit Inpatient E&M: 38962 Subs Hosp L2
--- NOTE | 2018-03-19 09:46 | PN_ITS ---
Subjective: The patient was seen and examined at the bedside this morning. Events from the last 24 hours have been reviewed. The patient is currently afebrile, hemodynamically stable and maintaining appropriate oxygen saturations on 2 L/min via nasal cannula. The patient was diuresed over the last 24 hours and has had improvement in her breathing quality noted. She is currently scheduled to undergo a thoracentesis today. Objective: The patient's most recent lab work, culture data and imaging studies have all been personally reviewed. A CTA chest was obtained which revealed no evidence for pulmonary embolism. There was again evidence of moderate to large bilateral pleural effusions, unchanged from the patient's previous study along with marked mediastinal and axillary adenopathy. Surface echocardiogram revealed normal LV size and function with an ejection fraction of 50%. There was mild global hypokinesis of the LV. - Physical Exam General: Alert, Oriented x3, Cooperative, No apparent distress HEENT: Atraumatic, PERRLA, EOMI Oral: Moist Mucosa, No Gingival or Mucosal Lesions/ Ulcerations Neck: Supple, No Nodes, Trachea Midline Lungs: No rhonchi, No wheeze, No rales, Diminished Cardiovascular: Regular rate, Regular Rhythm, Normal S1, Normal S2, No murmurs Abdomen: Bowel Sounds Present, Soft, Non Tender, Non-Distended Extremities: No clubbing, No cyanosis, No edema Skin: No breakdown Musculoskeletal: No Tenderness to Palpation of Joints or Extremities Neurological: Cranial nerves II-XII grossly intact, Neuro grossly intact Psych/Mental Status: Alert and oriented to time, place, person, mood and affect Vital Signs Temp Pulse Resp BP Pulse Ox 36.6 C 75 18 117/66 96 03/19/18 08:52 03/19/18 09:00 03/19/18 08:52 03/19/18 09:00 03/19/18 08:52 Oxygen Flow Rate (L/min) 2 Oxygen Delivery Method Nasal Cannula Weight: 178 lb 12.718 oz Body Mass Index (BMI) 31.8 Intake and Output for Last 24 Hours 03/17/18 03/18/18 03/19/18 23:59 23:59 23:59 Intake Total 665 / 665 360 / 360 Output Total 1425 / 1425 1050 / 1050 Balance -760 / -760 -690 / -690 Laboratory Tests Past 24 Hrs 03/18/18 03/19/1818 06:00 06:00 06:00 WBC 8.9 RBC 4.58 Hgb 13.9 Hct 40.8 MCV 89.1 MCH 30.3 MCHC 34.1 RDW 14.9 H RDW Differential 49.1 H Plt Count 202 MPV 12.7 H Sodium 134 L Potassium 3.6 Chloride 99 Carbon Dioxide 29.0 Anion Gap 6 BUN 15 Creatinine 0.61 Estim Creat Clear Calc 77.07 Est GFR (MDRD) Af Amer 128 Est GFR (MDRD) Non-Af 106 BUN/Creatinine Ratio 24.8 H Glucose 84 Calcium 10.5 H Magnesium 2.1 B-Natriuretic Peptide 480.2 H Clinical Impression(s) from Imaging Studies Chest X-Ray 03/17/18 15:46 IMPRESSION: Large left pleural effusion, otherwise unremarkable. Electronically Signed: Mariama Saha MD at 16:32 EST Tel , Service support , Chest CTA 03/17/18 17:49 IMPRESSION: 1. No evidence of pulmonary embolus or aortic dissection. 2. Moderate to large bilateral pleural effusions. No change from the prior study. 3. Moderate to marked mediastinal and axillary adenopathy. No change from prior. Electronically Signed: Mariama Saha MD at 19:07 EST Tel , Service support , Clinical Impression(s) from Imaging Studies Chest X-Ray 03/17/18 15:46 IMPRESSION: Large left pleural effusion, otherwise unremarkable. Electronically Signed: Mariama Saha MD at 16:32 EST Tel , Service support , Chest CTA 03/17/18 17:49 IMPRESSION: 1. No evidence of pulmonary embolus or aortic dissection. 2. Moderate to large bilateral pleural effusions. No change from the prior study. 3. Moderate to marked mediastinal and axillary adenopathy. No change from prior. Electronically Signed: Mariama Saha MD at 19:07 EST Tel , Service support , Medical Necessity - Tobacco Use Smoking Status: Former smoker Tobacco Use: Cigarettes Assessment/Plan All Active Problems (Last Reviewed 03/13/18 @ 14:52 by Taty Veliz) Follicular lymphoma grade III (Acute) RECOMMENDATIONS: 1. Continue to hold DVT prophylaxis Lovenox until after thoracentesis. 2. Continue to wean supplemental oxygen to maintain saturations at or above 90%. 3. Ultrasound-guided thoracentesis is pending. 4. Continue diuretics as tolerated. 5. Encourage incentive spirometer use and mobilize patient as tolerated. IMPRESSIONS: 1. Acute hypoxic respiratory insufficiency secondary to bilateral pleural effusions The etiology for the patient's pleural effusions are most likely malignant in nature and related to her newly diagnosed follicular lymphoma. She has never undergone a thoracentesis previously. Therefore, would recommend proceeding with a left-sided ultrasound-guided thoracentesis, which will be both therapeutic and diagnostic in nature. Send pleural fluid for cytology and flow cytometry. My hope is that with drainage of the left hemithorax, coupled with aggressive incentive spirometer use and gentle diuresis, the patient's shortness of breath and subsequent oxygenation will improve. Orders for ultrasound-guided thoracentesis and pleural fluid analysis have been placed. 2. Newly diagnosed follicular lymphoma Plans to initiate systemic chemotherapy as soon as the patient has been stabilized from a medical perspective. 3. Troponin elevation Potential demand ischemia, as the patient's recent echocardiogram was unrevealing. Cardiology is currently following. Will defer management accordingly. This note was generated with [employer] dictation software. It may contain incorrect words, spelling, and punctuation that were not noted in checking the note before signing. Code Visit Inpatient E&M: 86034 Subs Hosp L2
--- NOTE | 2018-03-19 10:35 | RAD_ITS ---
STUDY: X-RAY CHEST REASON FOR EXAM: Female, 62 years old. The patient is status post left thoracentesis. TECHNIQUE: PA expiration and inspiration views. COMPARISON: Comparison is made with prior study March 17, 2018. FINDINGS: EKG electrodes are seen. A right-sided portacatheter is in situ with the tip at the junction of the superior vena cava right atrium. The patient is status post left thoracentesis. Small residual left pleural effusion with bibasilar atelectasis is seen. RAD/Chest Insp/Exp 2 View IMPRESSION: Status post left thoracentesis. There is no evidence of pneumothorax. Electronically Signed: Denny Juarez MD at 12:43 EST Tel [phone], Service support ,
--- NOTE | 2018-03-19 11:43 | PCM.PN.HOSP ---
Subjective: Patient seen still remains significantly dyspneic at rest. Patient did not have much response to Lasix. Scheduled to undergo ultrasound-guided thoracocentesis Objective: GENERAL: cooperative dyspneic at rest HEENT: Atraumatic; moist oral mucosa EYES; Anicteric, Normal Conjunctiva NECK; supple, normal thyroid, no distended JVD. RESPIRATORY: Diminished to auscultation bilaterally, CARDIOVASCULAR: Regular S1 S2, no audible murmurs GI: soft, non-tender, normoactive bowel sounds, : No Renal angle tenderness; EXTREMITIES: 2+ bilateral edema, no clubbing, no cyanosis. MUSCULOSKELETAL: No Joint Tenderness; NEURO: Awake; no lateralizing signs. SKIN: No Rash PSYCH; Normal affect Vitals/I&O's: Vital Signs Temp Pulse Resp BP Pulse Ox 97.8 F 84 16 105/55 L 94 03/19/18 08:52 03/19/18 11:34 03/19/18 11:34 03/19/18 11:34 03/19/18 11:30 Oxygen Flow Rate (L/min) [3] 2 Oxygen Flow Rate (L/min) [2] 2 Oxygen Flow Rate (L/min) [1 ( 2 Initial Baseline)] Oxygen Flow Rate (L/min) 2 Oxygen Delivery Method [3] Nasal Cannula Oxygen Delivery Method [2] Nasal Cannula Oxygen Delivery Method [1 ( Nasal Cannula Initial Baseline)] Oxygen Delivery Method Nasal Cannula Weight: 81.1 kg Body Mass Index (BMI) 31.8 Intake and Output for Last 24 Hours 03/17/18 03/18/18 03/19/18 23:59 23:59 23:59 Intake Total 665 / 665 360 / 360 Output Total 1425 / 1425 1050 / 1050 Balance -760 / -760 -690 / -690 Laboratory Results 03/18/18 06:00: B-Natriuretic Peptide 480.2 H 03/18/18 11:15: Fluid Total Protein Pending, Fluid LDH Pending 03/18/18 11:15: Miscellaneous Test Pending 03/19/18 06:00: WBC 8.9, RBC 4.58, Hgb 13.9, Hct 40.8, MCV 89.1, MCH 30.3, MCHC 34.1, RDW 14.9 H, RDW Differential 49.1 H, Plt Count 202, MPV 12.7 H 12/05/18 06:00: Sodium 134 L, Potassium 3.6, Chloride 99, Carbon Dioxide 29.0, Anion Gap 6, BUN 15, Creatinine 0.61, Estim Creat Clear Calc 77.07, Est GFR (MDRD) Af Amer 128, Est GFR (MDRD) Non-Af 106, BUN/Creatinine Ratio 24.8 H, Glucose 84, Calcium 10.5 H, Magnesium 2.1 Current Medications Hydrocodone Bitart/Acetaminophen (Harrold 5mg-325mg) 1 tablet PO Q6H PRN PRN PRN Reason: PAIN [facility]) [facility] Last Admin: 03/19/18 09:00 Dose: 300 mg Aspirin (Ecotrin) 81 mg PO DAILY@0800 [facility] Last Admin: 03/19/18 08:57 Dose: 81 mg Atorvastatin Calcium (Lipitor) 40 mg PO QHS [facility] Last Admin: 03/18/18 22:00 Dose: Not Given Furosemide (Lasix) 40 mg IV BID@1000,1800 [facility] Last Admin: 03/19/18 09:01 Dose: 40 mg Magnesium Hydroxide (Milk Of Magnesia) 30 ml PO DAILY PRN PRN PRN Reason: Constipation Metoprolol Succinate (Toprol Xl (Beta Landry)) 25 mg PO DAILY [facility] Last Admin: 03/19/18 09:00 Dose: 25 mg Multivitamins (Multivitamin) 1 tablet PO DAILY@0800 [facility] Last Admin: 03/19/18 08:57 Dose: 1 tablet Nitroglycerin (Nitrostat) 0.4 mg SUBLINGUAL Q5M PRN PRN Reason: CARDIAC/CHEST PAIN [id number]-9-[id number] Ethyl Esters (Lovaza) 1 gm PO DAILY [facility] Last Admin: 03/19/18 09:01 Dose: 1 gm Medical Necessity - Tobacco Use Smoking Status: Former smoker Tobacco Use: Cigarettes Assessment/Plan All Active Problems (Last Reviewed 03/13/18 @ 14:52 by Taty Veliz) Follicular lymphoma grade III (Acute) Patient is a 62-year-old lady recently diagnosed with follicular lymphoma scheduled to initiate chemotherapy who presented with progressive shortness of breath. Patient was found to have elevated troponin consistent with acute non-STEMI in addition to bilateral moderate to large pleural effusion. Admitted to a monitored bed with consultation placed to both pulmonary medicine as well as cardiology. Patient is scheduled to undergo ultrasound-guided thoracocentesis on 03/19/2018. 1. Acute respiratory insufficiency secondary to bilateral pleural effusion suspected to be malignant in nature. Do also suspect a component of acute diastolic heart failure. Patient started on Lasix. Consult placed to pulmonary medicine patient seen recommendation is for patient to undergo thoracocentesis scheduled to be performed on 03/19/2018 2. Acute diastolic congestive heart failure patient started on Lasix monitoring strict input and output. An echo obtained on 03/07/2018 demonstrated ejection fraction of 60% with a pulmonary artery systolic pressure of 33 mmHg 3. Acute non-STEMI: Troponin peaked at 3.4. Admitted to a monitored bed patient treated medically at this point with starting therapy aspirin as well as beta-blockers. Consultation was placed to cardiology patient seen by Dr. Tapia is noted recommendations reviewed 4. Large left-sided pleural effusion suspected to be secondary to malignant pleural effusion patient underwent ultrasound-guided thoracocentesis on 03/19/2018 with 2 L of fluid taken off 5. Follicular lymphoma grade 3 recently diagnosed consult was placed to Dr Noyola with oncology Case discussed with oncology patient started on allopurinol to prevent tumor lysis syndrome in view of patient to tumor burden 6. DVT prophylaxis SC Lovenox Clinical Impression(s) from Imaging Studies Chest X-Ray 03/17/18 15:46 IMPRESSION: Large left pleural effusion, otherwise unremarkable. Electronically Signed: Mariama Saha MD at 16:32 EST Tel , Service support , Chest CTA 03/17/18 17:49 IMPRESSION: 1. No evidence of pulmonary embolus or aortic dissection. 2. Moderate to large bilateral pleural effusions. No change from the prior study. 3. Moderate to marked mediastinal and axillary adenopathy. No change from prior. Electronically Signed: Mariama Saha MD at 19:07 EST Tel , Service support , Code Visit Inpatient E&M: [id number] Subs Hosp L3
--- NOTE | 2018-03-19 11:51 | PN_ITS ---
Subjective: Patient seen still remains significantly dyspneic at rest. Patient did not have much response to Lasix. Scheduled to undergo ultrasound-guided thoracocentesis Objective: GENERAL: cooperative dyspneic at rest HEENT: Atraumatic; moist oral mucosa EYES; Anicteric, Normal Conjunctiva NECK; supple, normal thyroid, no distended JVD. RESPIRATORY: Diminished to auscultation bilaterally, CARDIOVASCULAR: Regular S1 S2, no audible murmurs GI: soft, non-tender, normoactive bowel sounds, : No Renal angle tenderness; EXTREMITIES: 2+ bilateral edema, no clubbing, no cyanosis. MUSCULOSKELETAL: No Joint Tenderness; NEURO: Awake; no lateralizing signs. SKIN: No Rash PSYCH; Normal affect Vitals/I&O's: Vital Signs Temp Pulse Resp BP Pulse Ox 97.8 F 84 16 105/55 L 94 03/19/18 08:52 03/19/18 11:34 03/19/18 11:34 03/19/18 11:34 03/19/18 11:30 Oxygen Flow Rate (L/min) [3] 2 Oxygen Flow Rate (L/min) [2] 2 Oxygen Flow Rate (L/min) [1 ( 2 Initial Baseline)] Oxygen Flow Rate (L/min) 2 Oxygen Delivery Method [3] Nasal Cannula Oxygen Delivery Method [2] Nasal Cannula Oxygen Delivery Method [1 ( Nasal Cannula Initial Baseline)] Oxygen Delivery Method Nasal Cannula Weight: 81.1 kg Body Mass Index (BMI) 31.8 Intake and Output for Last 24 Hours 03/17/18 03/18/18 03/19/18 23:59 23:59 23:59 Intake Total 665 / 665 360 / 360 Output Total 1425 / 1425 1050 / 1050 Balance -760 / -760 -690 / -690 Laboratory Results 03/18/18 06:00: B-Natriuretic Peptide 480.2 H 03/18/18 11:15: Fluid Total Protein Pending, Fluid LDH Pending 03/18/18 11:15: Miscellaneous Test Pending 03/19/18 06:00: WBC 8.9, RBC 4.58, Hgb 13.9, Hct 40.8, MCV 89.1, MCH 30.3, MCHC 34.1, RDW 14.9 H, RDW Differential 49.1 H, Plt Count 202, MPV 12.7 H 12/05/18 06:00: Sodium 134 L, Potassium 3.6, Chloride 99, Carbon Dioxide 29.0, Anion Gap 6, BUN 15, Creatinine 0.61, Estim Creat Clear Calc 77.07, Est GFR (MDRD) Af Amer 128, Est GFR (MDRD) Non-Af 106, BUN/Creatinine Ratio 24.8 H, Glucose 84, Calcium 10.5 H, Magnesium 2.1 Current Medications Hydrocodone Bitart/Acetaminophen ([place] 5mg-325mg) 1 tablet PO Q6H PRN PRN PRN Reason: PAIN [facility]) [facility] Admin: 03/19/18 09:00 Dose: 300 mg Aspirin (Ecotrin) 81 mg PO DAILY@0800 [facility] Last Admin: 03/19/18 08:57 Dose: 81 mg Atorvastatin Calcium (Lipitor) 40 mg PO QHS [facility] Last Admin: 03/18/18 22:00 Dose: Not Given Furosemide (Lasix) 40 mg IV BID@1000,1800 [facility] Last Admin: 03/19/18 09:01 Dose: 40 mg Magnesium Hydroxide (Milk Of Magnesia) 30 ml PO DAILY PRN PRN PRN Reason: Constipation Metoprolol Succinate (Toprol Xl (Beta Landry)) 25 mg PO DAILY [facility] Last Admin: 03/19/18 09:00 Dose: 25 mg Multivitamins (Multivitamin) 1 tablet PO DAILY@0800 [facility] Last Admin: 03/19/18 08:57 Dose: 1 tablet Nitroglycerin (Nitrostat) 0.4 mg SUBLINGUAL Q5M PRN PRN Reason: CARDIAC/CHEST PAIN Uefuj-5-Lpuu Ethyl Esters (Lovaza) 1 gm PO DAILY [facility] Last Admin: 03/19/18 09:01 Dose: 1 gm Medical Necessity - Tobacco Use Smoking Status: Former smoker Tobacco Use: Cigarettes Assessment/Plan All Active Problems (Last Reviewed 03/13/18 @ 14:52 by Taty Veliz) Follicular lymphoma grade III (Acute) Patient is a 62-year-old lady recently diagnosed with follicular lymphoma scheduled to initiate chemotherapy who presented with progressive shortness of breath. Patient was found to have elevated troponin consistent with acute non- STEMI in addition to bilateral moderate to large pleural effusion. Admitted to a monitored bed with consultation placed to both pulmonary medicine as well as cardiology. Patient is scheduled to undergo ultrasound-guided thoracocentesis on 03/19/2018. 1. Acute respiratory insufficiency secondary to bilateral pleural effusion suspected to be malignant in nature. Do also suspect a component of acute diastolic heart failure. Patient started on Lasix. Consult placed to pulmonary medicine patient seen recommendation is for patient to undergo thoracocentesis scheduled to be performed on 03/19/2018 2. Acute diastolic congestive heart failure patient started on Lasix monitoring strict input and output. An echo obtained on 03/07/2018 demonstrated ejection fraction of 60% with a pulmonary artery systolic pressure of 33 mmHg 3. Acute non-STEMI: Troponin peaked at 3.4. Admitted to a monitored bed patient treated medically at this point with starting therapy aspirin as well as beta-blockers. Consultation was placed to cardiology patient seen by Dr. Tapia is noted recommendations reviewed 4. Large left-sided pleural effusion suspected to be secondary to malignant pleural effusion patient underwent ultrasound-guided thoracocentesis on 03/19 with 2 L of fluid taken off 5. Follicular lymphoma grade 3 recently diagnosed consult was placed to Dr Noyola with oncology Case discussed with oncology patient started on allopurinol to prevent tumor lysis syndrome in view of patient to tumor burden 6. DVT prophylaxis SC Lovenox Clinical Impression(s) from Imaging Studies Chest X-Ray 03/17/18 15:46 IMPRESSION: Large left pleural effusion, otherwise unremarkable. Electronically Signed: Mariama Saha MD at 16:32 EST Tel , Service support , Chest CTA 03/17/18 17:49 IMPRESSION: 1. No evidence of pulmonary embolus or aortic dissection. 2. Moderate to large bilateral pleural effusions. No change from the prior study. 3. Moderate to marked mediastinal and axillary adenopathy. No change from prior. Electronically Signed: Mariama Saha MD at 19:07 EST Tel , Service support , Code Visit Inpatient E&M: [id number] Subs Hosp L3
[2018-03-19 11:59] LABS: Body Fluid Mononuclear WBC # 1.558 10^3/uL; Body Fluid Mononuclear WBC % 95.3 %; Body Fluid Polynuclear WBC # 0.077 10^3/uL; Body Fluid Polynuclear WBC % 4.7 %; Body Fluid Total Cells Counted 1.668 10^3/ul (0.000-0.000); White Blood Count/Body Fluid 1.635 10^3/uL
[2018-03-19 12:40] LABS: LDH,Body Fluid 163 Units/l (Not Establ.); Protein, Body Fluid 4.3 g/dL (Not Establ.)
[2018-03-19 12:59] LABS: Appearance/Body Fluid SL CLDY; Auto B Fluid Analyzer BKGD Ct COUNTS W/IN LIMITS (W/IN LIMITS); Body Fluid QC Type(s) BF1Q; Color/Body Fluid RED; Lymphocytes 89 %; Macrophages 2 %; Monocytes 5 %; Neutrophil (Segs) 4 %; Source- Body Fluid THORACENTESIS
--- NOTE | 2018-03-19 14:10 | ONC.CONS.INP ---
Subjective Date of Service:: 03/19/18 Chief Complaint: Follicular lymphoma History of Present Illness: Ms. Cori Corrigan is a very pleasant 62-year-old woman with past medical history positive for hypertension who presented with generalized lymphadenopathy and a biopsy revealed follicular lymphoma, grade 3. Found to be stage MAXINE with generalized lymphadenopathy, splenomegaly and bone marrow involvement by PET CT. FLIPI score of 4. Incidental finding of Left breast nodule visualized on CT but not on mammography or ultrasound. Believed to be a result of impairment of lymph drainage from the breast due to lymphomatous involvement of axillary nodes. Scheduled to commence with cycle 1 R CHOP on 03/19/2018 however patient presented to [facility] ED on 03/17/2018 with complaints of worsening dyspnea, both exertional and at rest. CTA showed moderate to large left pleural effusion and moderate right pleural effusion and mediastinal adenopathy, with no change from prior study, negative for pulmonary embolism. Admitted for management of NSTEMI bilateral pleural effusions. Surface echocardiogram revealed normal LV size and function with an ejection fraction of 50%. There was mild global hypokinesis of the LV. Underwent therapeutic left-sided thoracentesis earlier this morning. Patient reports shortness of breath modestly improved. Bilateral lower extremity edema modestly improved subsequent to diuresis yesterday. Past Medical/Surgical History: Past Medical History - Most Recent Inpatient Visit Past Medical History Start: 03/17/18 19:53 Text: Status: Complete Freq: ONCE Protocol: Document 03/17/18 20:58 [facility] (Rec: 03/17/18 21:02 [facility] [id number]) BMI Required to complete PMH What is Patient's BMI 31.8 Past Medical History Unable History Recalled No Query Text:Pt Unable/Family Not Present Neurologic Medical History Hx Stroke/TIA No Hx Dementia/Alzheimer's No Hx Parkinson's Disease No Hx Seizures No Hx Multiple Sclerosis No Hx Migraines No Cardiac Medical History VTE Present on Admission No Hx of Deep Vein Thrombosis/VTE/PE No Hx Hypertension No Hx Chest Pain/Angina No Hx Heart Attack No Hx Cardiac Surgery/Stents/Etc. No Hx Heart Failure No Hx Pacemaker/AICD No Hx Irregular Heartbeat and/or Afib No Hx Anticoagulant Therapy No Query Text:(Coumadin, Aspirin, Plavix, Xarelto, etc.) Hx Pain in Legs when Walking/Leg Cramps Yes: D/T SWELLING Respiratory Medical History Hx COPD No Hx Emphysema No Hx Smoking Yes: QUIT 4 WKS AGO Smoking Status Former smoker Tobacco Use Cigarettes Years Smoking 30 Hx Smoking Cessation Counseling No Hx Smoking Exposure Yes Hx Tobacco Use in last 12 months Yes Sent to [facility] Yes Hx of Pipe Smoking No Hx of Cigar Smoking No Hx Sleep Apnea No Do you snore loudly (louder than talking No or can be heard through closed doors)? Do you often feel tired/ fatigued/ No sleepy during daytime? Has anyone observed you stop breathing No during sleep? STOP Results Negative GI Medical History Hx Ulcer No Hx Hepatitis No Hx Cirrhosis No Hx GI Bleed No Hx Unplanned Weight Loss No Genitourinary Medical History Indwelling Catheter in Place on Arrival/ No Admission Hx Renal Disease No Hx Dialysis No Musculoskeletal History Hx Arthritis No Hx Rheumatoid Arthritis No Endocrine Medical History Hx Diabetes No Hx Thyroid Disease No Hematologic Medical History Hx of Blood Transfusion No Hx of Transfusion in last 3 Months No Ever experience any problems with No transfusion(s)? Hx of Preganancy in last 3 Months N/A Nurse Filling Out Transfusion & [id number] Questions: Date: 03/17/18 Time: 21:01 Psycho/Social Medical History Hx Depression No Hx Anxiety No Hx Behavior Disorder No Hx Alcohol Use No Hx Substance Use No Other Medical History Hx Blood Disorders No Hx Anemia No Hx Cancer Yes: LYMPHOMA Hx Drug Resistant Organism No Wound/Pressure Injury Present on Arrival No /Admission Query Text:If yes, chart assessment in Shift/Clinical Findings Central Line/PICC/VAD Present on Arrival Yes /Admission Antibiotics within last 7 days? No Comments Right uppper chest new port for chemotherapy Methicillin Resistant Staphylococcus aureus Screening Active MRSA No Risk for Readmission Number of Risk Factors 2 At Risk for Readmission Patient is At Risk For Readmission Patient is eligible for Call Back Y Past Medical History (Last Reviewed 03/13/18 @ 14:52 by Taty Veliz) Constipation (Acute) Lymphadenopathy (Acute) Past Surgical History (Last Reviewed 03/13/18 @ 14:52 by Taty Veliz) Hx of lymph node biopsy (Acute ~02/2018) No history of previous surgery (Acute) Maternal Family History: Family History (Last Reviewed 03/13/18 @ 14:52 by Taty Veliz) Father Diabetes Arthritis Heart disease Kidney disease Stomach ulcer Hypertension Sister Diabetes Arthritis Heart disease Hypertension Thyroid disorder Mother Breast cancer Cancer Brother Diabetes Kidney disease Hypertension Lymphoma Family History: Cancer, Heart Disease Paternal Family History: Family History (Last Reviewed 03/13/18 @ 14:52 by Taty Veliz) Father Diabetes Arthritis Heart disease Kidney disease Stomach ulcer Hypertension Sister Diabetes Arthritis Heart disease Hypertension Thyroid disorder Mother Breast cancer Cancer Brother Diabetes Kidney disease Hypertension Lymphoma Family History: High Cholesterol, Heart Disease, Hypertension Sibling Family History: Family History (Last Reviewed 03/13/18 @ 14:52 by Taty Veliz) Father Diabetes Arthritis Heart disease Kidney disease Stomach ulcer Hypertension Sister Diabetes Arthritis Heart disease Hypertension Thyroid disorder Mother Breast cancer Cancer Brother Diabetes Kidney disease Hypertension Lymphoma Family History: Cancer - Social History Smoking Status: Former smoker Tobacco Use: Cigarettes Alcohol: None Drugs: None Allergies/Adverse Reactions: Allergy/AdvReac Type Severity Reaction Status Date / Time No Known Allergies Allergy Verified 03/17/18 14:57 Review of Systems Constitutional:: Reports: Weakness, Fatigue, Appetite change. Denies: Fever, Sweats, Weight loss, Chills Cardiovascular:: Reports: Dyspnea on exertion. Denies: Chest pain, Palpitations, Orthopnea, PND, Shortness of breath Respiratory: Reports: Shortness of breath at rest, Shortness of breath upon exertion. Denies: Cough, Hemoptysis, Wheezing Gastrointestinal:: Denies: Abdominal pain, Nausea, Vomiting, Diarrhea, Constipation, Melena, Hematochezia Genitourinary: Reports: Urinary frequency. Denies: Dysuria, Hematuria, Flank pain Musculoskeletal:: Denies: Back pain, Myalgia, Arthralgia Skin: Denies: Rash, Skin Changes, Wounds Neurological:: Denies: Headache, Dizziness, Numbness, Tingling, Frequent falls, Visual changes, Tinnitus, Hearing loss Psychiatric: Denies: Anxiety, Depression, Homicidal Ideations, Suicidal Ideations Vital Signs Height 5 ft 3 in Weight: 178 lb 12.718 oz Weight in Pounds 178.8 lbs Pulse Ox 94 Temperature 97.8 F Pulse Rate [3] 79 Pulse Rate [2] 88 Pulse Rate [1 (Initial 84 Baseline)] Pulse Rate 82 Respiratory Rate [3] 16 Respiratory Rate [2] 16 Respiratory Rate [1 (Initial 16 Baseline)] Respiratory Rate 16 Blood Pressure [3] 107/67 Blood Pressure [2] 115/62 Blood Pressure [1 (Initial 105/55 Baseline)] Blood Pressure 122/68 Blood Pressure Position Sitting - Physical Exam General: Alert, Oriented x3, No apparent distress HEENT: Atraumatic, PERRLA, EOMI, Normocephalic Oropharynx:: Negative for: Dry mucosa, Ulcerated lesions Neck:: Supple, Trachea midline. Negative for: JVD, bilateral Cardiac:: Regular rate, Regular rhythm, Normal S1, Normal S2. Negative for: Murmur Lungs: Clear to auscultation, Diminished - Bilateral, Excusion symmetrical. Negative for: Rhonchi, Wheezes, Tachypneic, Increased respiratory effort Abdomen:: Bowel sounds x 4, Soft, Non-tender, Non-distended. Negative for: Hepatosplenomegaly Extremities:: Negative for: Cyanosis, Edema Neurological: Neuro grossly intact Skin:: - - Port right upper chest covered with DSD, surrounding integument intact without erythema edema or increased warmth. Negative for: Lesions, Rash, Petechiae, Ecchymosis Psychiatric:: Appropriate affect, Euthymic Lymphatics:: Cervical lymphadenopathy, Supraclavicular lymphadenopathy, Axillary lymphadenopathy Laboratory Data: Laboratory Tests 03/19/18 03/19/18 03/19/18 Range/Units 11:15 11:15 06:00 WBC (4.4-11.0) K/mm3 RBC (4.2-5.4) M/mm3 Hgb (12.0-15.0) g/dl Hct (37-47) % MCV (81-99) fL MCH (27.0-32.0) pg MCHC (32-36) g/gl RDW (11.6-14.6) % RDW Differential (35.1-43.9) fl Plt Count (150-450) K/mm3 MPV (6.2-12.0) fl Sodium 134 L (136-145) mmol/L Potassium 3.6 (3.5-5.1) mmol/L Chloride 99 (98-107) mmol/L Carbon Dioxide 29.0 (21.0-32.0) mmol/L Anion Gap 6 (5-15) BUN 15 (7-18) mg/dL Creatinine 0.61 (0.55-1.02) mg/dL Estim Creat Clear Calc 77.07 ml/min Est GFR (MDRD) Af Amer 128 (>60) mL/min Est GFR (MDRD) Non-Af 106 (>60) mL/min BUN/Creatinine Ratio 24.8 H (10-20) RATIO Glucose 84 (74-106) mg/dL Calcium 10.5 H (8.5-10.1) mg/dL Magnesium 2.1 (1.6-2.6) mg/dL B-Natriuretic Peptide (0-100) pg/mL Fluid Source THORACENTESIS Fluid Color RED Fluid Appearance SL CLDY Fluid WBC 1.635 10^3/uL Fluid RBC 0.72419 10^6/ul Fluid Tot Cell Count 1.668 H (0.000-0.000) 10^3/ul Fld Polynuclear WBCs # 0.077 10^3/uL Fld Polynuclear WBCs % 4.7 % Fluid Mononuclear WBCs 1.558 10^3/uL Fld Mononuclear WBCs % 95.3 % Fluid Neutrophils 4 % Fluid Lymphocytes 89 % Fluid Monocytes 5 % Fluid Macrophages 2 % Fl Pathologist Comment May follow Fluid Total Protein 4.3 (Not Establ.) g/dL Fluid LDH 163 (Not Establ.) Units/l Fluid Comment 2 SEE COMMENT 03/19/18 03/18/18 Range/Units 06:00 06:00 WBC 8.9 (4.4-11.0) K/mm3 RBC 4.58 (4.2-5.4) M/mm3 Hgb 13.9 (12.0-15.0) g/dl Hct 40.8 (37-47) % MCV 89.1 (81-99) fL MCH 30.3 (27.0-32.0) pg MCHC 34.1 (32-36) g/gl RDW 14.9 H (11.6-14.6) % RDW Differential 49.1 H (35.1-43.9) fl Plt Count 202 (150-450) K/mm3 MPV 12.7 H (6.2-12.0) fl Sodium (136-145) mmol/L Potassium (3.5-5.1) mmol/L Chloride (98-107) mmol/L Carbon Dioxide (21.0-32.0) mmol/L Anion Gap (5-15) BUN (7-18) mg/dL Creatinine (0.55-1.02) mg/dL Estim Creat Clear Calc ml/min Est GFR (MDRD) Af Amer (>60) mL/min Est GFR (MDRD) Non-Af (>60) mL/min BUN/Creatinine Ratio (10-20) RATIO Glucose (74-106) mg/dL Calcium (8.5-10.1) mg/dL Magnesium (1.6-2.6) mg/dL B-Natriuretic Peptide 480.2 H (0-100) pg/mL Fluid Source Fluid Color Fluid Appearance Fluid WBC 10^3/uL Fluid RBC 10^6/ul Fluid Tot Cell Count (0.000-0.000) 10^3/ul Fld Polynuclear WBCs # 10^3/uL Fld Polynuclear WBCs % % Fluid Mononuclear WBCs 10^3/uL Fld Mononuclear WBCs % % Fluid Neutrophils % Fluid Lymphocytes % Fluid Monocytes % Fluid Macrophages % Fl Pathologist Comment Fluid Total Protein (Not Establ.) g/dL Fluid LDH (Not Establ.) Units/l Fluid Comment 2 Diagnostic Data: Diagnostic Data Chest CTA 03/17/18 17:49 IMPRESSION: 1. No evidence of pulmonary embolus or aortic dissection. 2. Moderate to large bilateral pleural effusions. No change from the prior study. 3. Moderate to marked mediastinal and axillary adenopathy. No change from prior. Electronically Signed: Mariama Saha MD at 19:07 EST Tel , Service support , Thoracentesis Ultrasound 03/19/18 09:30 IMPRESSION: Ultrasound-guided left thoracentesis. Electronically Signed: Denny Juarez MD at 13:07 EST Tel [phone], Service support , Chest X-Ray 03/19/18 10:35 IMPRESSION: Status post left thoracentesis. There is no evidence of pneumothorax. Electronically Signed: Denny Juarez MD at 12:43 EST Tel [phone], Service support , Assessment and Plan Patient is a 62-year-old lady recently diagnosed with follicular lymphoma scheduled to initiate chemotherapy 03/19/18 who presented 03/17/18 with progressive shortness of breath. Patient was found to have elevated troponin consistent with acute non-STEMI in addition to bilateral moderate to large pleural effusion. Admitted for management. 1. 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 Her FLIPI score is 4 (age above 60, elevated LDH, stage IV and more than 4 kate areas involved) puts her at the high risk group. She has had a rather aggressive course with rapidly enlarging generalized lymphadenopathy over the course of 1-2 months in addition to a moderate size left pleural effusion that may be due to lymphomatous involvement or disruption of lymphatic drainage by lymphoma (discussed below) Patient was supposed to begin systemic chemotherapy with R CHOP today. Tentatively we will plan to begin systemic chemotherapy on 03/24/2018 in the ambulatory setting. May be prudent to begin prednisone now. Orders placed for 100 mg p.o. daily times 5 days starting today. Potential side effects associated with high-dose steroids reviewed with the patient. Orders also placed for PPI for GI prophylaxis. Patient to continue allopurinol 300 mg daily times 10 days for tumor lysis syndrome prevention given the context of high tumor burden. 2. Large left-sided pleural effusion-underwent therapeutic thoracentesis earlier today. Likely a result of lymphatic obstruction. Best course of action is to initiate chemotherapy as soon as possible. 3. Mild hypercalcemia?as evidenced by calcium level today of 10.5. Presumably hypercalcemia of malignancy, again will commence with chemotherapy as soon as possible, recommend p.o. fluid push in outpatient setting. Will continue to monitor. 4. Acute diastolic congestive heart failure-patient is being managed with diuresis and strict I AND O. Surface echocardiogram 03/18/2018 revealed normal LV size and function with an ejection fraction of 50%. EF sufficient to commence with doxorubicin. 5. DVT prophylaxis SC Lovenox Case discussed with Dr. Aiken who is in agreement with aforementioned plan. Mer Bain, MSN, INFANTRY OFFICER, AOCNP Medications: Prescriptions This Visit Medication Instructions Recorded Aspirin E.C. [Ecotrin] 325 mg PO PRN PRN 03/17/18 Hydrocodone/Acetaminophen [Waite 1 tab PO PRN PRN 03/17/18 5-325 Tablet] Medications Added to Medication List This Visit Category Date Time Status Allopurinol [Zyloprim] Med 03/19/18 08:00 Active 300 mg PO DAILYCM Pantoprazole Sodium [Protonix] Med 03/19/18 14:02 Once 40 mg PO X1 ONE predniSONE tablet Med 03/21/18 09:00 Ordered 100 mg PO DAILY predniSONE tablet Med 03/19/18 14:06 Once 100 mg PO X1 ONE Primary Care Provider: Michael Tanner MD Referring Provider: Apolonia Moe MD
[2018-03-19] MEDS: predniSONE 20 MG Tablet 100 MG PO (14:39)
[2018-03-19] MEDS: Pantoprazole Sodium 40 MG Tablet PO (14:39)
[2018-03-19] MEDS: Atorvastatin Calcium 40 MG Tablet PO (21:30)
[2018-03-20] VITALS (8 sets, daily range): BP systolic 123–125; BP diastolic 65–72; PULSE 56–84; RESP 16–20; TEMP 36.4–36.8; O2SAT 88–96
[2018-03-20 06:10] LABS: Hematocrit 36.5 % (37-47); Hemoglobin 12.3 g/dl (12.0-15.0); Mean Corp Hgb Conc 33.7 g/gl (32-36); Mean Platelet Vol. 12.8 fl (6.2-12.0); Platelet Count 176 K/mm3 (150-450); RBC Distribution Width CV 14.7 % (11.6-14.6); RBC Distribution Width SD 47.3 fl (35.1-43.9); White Blood Count 7.1 K/mm3 (4.4-11.0)
[2018-03-20 06:15] LABS: Scan Indicated on CBC? Y/N NO
[2018-03-20 06:17] LABS: Anion Gap 9 (5-15); BUN 17 mg/dL (7-18); BUN/Creat Ratio 32.2 RATIO (10-20); Calcium,Total 10.1 mg/dL (8.5-10.1); Chloride 99 mmol/L (98-107); Creatinine, Serum 0.53 mg/dL (0.55-1.02); EST Glomerular Filtration Rate 124 mL/min (>60); Est Glom Filt Rate - Afr Amer 150 mL/min (>60); Estimated Creatinine Clearance 88.71 ml/min; Glucose 113 mg/dL (74-106); Potassium 3.8 mmol/L (3.5-5.1); Sodium Level 138 mmol/L (136-145)
--- NOTE | 2018-03-20 07:17 | PCM.PROGNOTE ---
Subjective: The patient was seen and examined at the bedside this morning. Events from the last 24 hours have been reviewed. The patient is currently afebrile, hemodynamically stable and maintaining appropriate oxygen saturations on room air. The patient did undergo a successful ultrasound-guided thoracentesis yesterday with 1.8 L of blood-tinged fluid draining from the left hemithorax. The patient's pleural fluid was consistent with a lymphocyte predominant exudate. The patient remains on IV Lasix 40 mg twice daily. Her creatinine remains stable. The patient does report symptomatic improvement in her breathing quality following thoracentesis yesterday. Objective: The patient's most recent lab work, culture data and imaging studies have all been personally reviewed. A CTA chest was obtained which revealed no evidence for pulmonary embolism. There was again evidence of moderate to large bilateral pleural effusions, unchanged from the patient's previous study along with marked mediastinal and axillary adenopathy. Surface echocardiogram revealed normal LV size and function with an ejection fraction of 50%. There was mild global hypokinesis of the LV. - Physical Exam General: Alert, Oriented x3, Cooperative, No apparent distress HEENT: Atraumatic, PERRLA, Normocephalic Oral: No Gingival or Mucosal Lesions/ Ulcerations Neck: Supple, No Nodes, Trachea Midline Lungs: No rhonchi, No wheeze, No rales, Diminished Cardiovascular: Regular rate, Regular Rhythm, Normal S1, Normal S2, No murmurs Abdomen: Bowel Sounds Present, Soft, Non Tender Extremities: No clubbing, No cyanosis, No edema Skin: No breakdown Musculoskeletal: No Tenderness to Palpation of Joints or Extremities Neurological: Cranial nerves II-XII grossly intact, Neuro grossly intact Psych/Mental Status: Alert and oriented to time, place, person, mood and affect Vital Signs Temp Pulse Resp BP Pulse Ox 36.4 C L 64 16 123/65 H 96 03/20/18 03:28 03/20/18 03:28 03/20/18 03:28 03/20/18 03:28 03/20/18 03:28 Oxygen Flow Rate (L/min) [3] 2 Oxygen Flow Rate (L/min) [2] 2 Oxygen Flow Rate (L/min) [1 ( 2 Initial Baseline)] Oxygen Flow Rate (L/min) 1.5 Oxygen Delivery Method [3] Nasal Cannula Oxygen Delivery Method [2] Nasal Cannula Oxygen Delivery Method [1 ( Nasal Cannula Initial Baseline)] Oxygen Delivery Method Room Air Weight: 168 lb 6.931 oz Body Mass Index (BMI) 31.8 Intake and Output for Last 24 Hours 03/18/18 03/19/18 03/20/18 23:59 23:59 23:59 Intake Total 665 / 665 1080 / 1080 Output Total 1425 / 1425 3025 / 3025 Balance -760 / -760 -1945 / -1945 Microbiology Past 72 Hours 03/19/18 Unknown Gram Stain - Final Fluid - Thoracentesis Fluid Laboratory Tests Past 24 Hrs 03/19/18 03/19/18 03/19/18 11:00 11:15 11:15 WBC RBC Hgb Hct MCV MCH MCHC RDW RDW Differential Plt Count MPV Sodium Potassium Chloride Carbon Dioxide Anion Gap BUN Creatinine Estim Creat Clear Calc Est GFR (MDRD) Af Amer Est GFR (MDRD) Non-Af BUN/Creatinine Ratio Glucose Calcium Fluid Source Fluid Color Fluid Appearance Fluid WBC Fluid RBC Fluid Tot Cell Count Fld Polynuclear WBCs # Fld Polynuclear WBCs % Fluid Mononuclear WBCs Fld Mononuclear WBCs % Fluid Neutrophils Fluid Lymphocytes Fluid Monocytes Fluid Macrophages Fl Pathologist Comment Fluid Total Protein 4.3 Fluid LDH 163 Fluid Comment 2 Miscellaneous Test Pending Pending 03/19/18 03/20/18 03/20/18 11:15 05:40 05:40 WBC 7.1 RBC 4.10 L Hgb 12.3 Hct 36.5 L MCV 89.0 MCH 30.0 MCHC 33.7 RDW 14.7 H RDW Differential 47.3 H Plt Count 176 MPV 12.8 H Sodium 138 Potassium 3.8 Chloride 99 Carbon Dioxide 30.0 Anion Gap 9 BUN 17 Creatinine 0.53 L Estim Creat Clear Calc 88.71 Est GFR (MDRD) Af Amer 150 Est GFR (MDRD) Non-Af 124 BUN/Creatinine Ratio 32.2 H Glucose 113 H Calcium 10.1 Fluid Source THORACENTESIS Fluid Color RED Fluid Appearance SL CLDY Fluid WBC 1.635 Fluid RBC 0.06685 Fluid Tot Cell Count 1.668 H Fld Polynuclear WBCs # 0.077 Fld Polynuclear WBCs % 4.7 Fluid Mononuclear WBCs 1.558 Fld Mononuclear WBCs % 95.3 Fluid Neutrophils 4 Fluid Lymphocytes 89 Fluid Monocytes 5 Fluid Macrophages 2 Fl Pathologist Comment May follow Fluid Total Protein Fluid LDH Fluid Comment 2 SEE COMMENT Miscellaneous Test Clinical Impression(s) from Imaging Studies Chest X-Ray 03/17/18 15:46 IMPRESSION: Large left pleural effusion, otherwise unremarkable. Electronically Signed: Mariama Saha MD at 16:32 EST Tel , Service support , Chest CTA 03/17/18 17:49 IMPRESSION: 1. No evidence of pulmonary embolus or aortic dissection. 2. Moderate to large bilateral pleural effusions. No change from the prior study. 3. Moderate to marked mediastinal and axillary adenopathy. No change from prior. Electronically Signed: Mariama Saha MD at 19:07 EST Tel , Service support , Thoracentesis Ultrasound 03/19/18 09:30 IMPRESSION: Ultrasound-guided left thoracentesis. Electronically Signed: Denny Juarez MD at 13:07 EST Tel [phone], Service support , Chest X-Ray 03/19/18 10:35 IMPRESSION: Status post left thoracentesis. There is no evidence of pneumothorax. Electronically Signed: Denny Juarez MD at 12:43 EST Tel [phone], Service support , Medical Necessity - Tobacco Use Smoking Status: Former smoker Tobacco Use: Cigarettes Assessment/Plan All Active Problems (Last Reviewed 03/13/18 @ 14:52 by Taty Veliz) Follicular lymphoma grade III (Acute) RECOMMENDATIONS: 1. Transition from IV to p.o. Lasix regimen. 2. Encourage incentive spirometer use and mobilize patient as tolerated. 3. Await cytology and flow cytometry results of pleural fluid. IMPRESSIONS: 1. Acute hypoxic respiratory insufficiency secondary to bilateral pleural effusions The etiology for the patient's pleural effusions are most likely malignant in nature and related to her newly diagnosed follicular lymphoma. The patient underwent an ultrasound-guided thoracentesis on March 19, with 1.8 L of fluid removed from her left hemithorax. The pleural fluid was consistent with a lymphocyte predominant exudate, likely the consequence of her known underlying follicular lymphoma. In addition, a surface echocardiogram was obtained which revealed a mildly decreased ejection fraction and mild global hypokinesis of the LV. The patient has been diuresed throughout her hospitalization and her oxygenation status has responded favorably. The patient is currently maintaining appropriate oxygen saturations on room air. Would recommend transitioning from an IV to p.o. Lasix regimen. Perform walking oximetry study prior to consideration for discharge from the hospital. Pleural fluid cytology and flow cytometry results are pending. I see no reason why the patient would not be able to be discharged at some point today, with oncology follow-up. 2. Newly diagnosed follicular lymphoma Plans to initiate systemic chemotherapy as soon as the patient has been stabilized from a medical perspective. 3. Troponin elevation Potential demand ischemia, as the patient's recent echocardiogram only revealed a mild decreased ejection fraction and mild global LV hypokinesis. The patient has responded favorably to IV diuretics. This note was generated with 5app dictation software. It may contain incorrect words, spelling, and punctuation that were not noted in checking the note before signing. Code Visit Inpatient E&M: 37224 Subs Hosp L2
--- NOTE | 2018-03-20 07:24 | PN_ITS ---
Subjective: The patient was seen and examined at the bedside this morning. Events from the last 24 hours have been reviewed. The patient is currently afebrile, hemodynamically stable and maintaining appropriate oxygen saturations on room air. The patient did undergo a successful ultrasound-guided thoracentesis yesterday with 1.8 L of blood-tinged fluid draining from the left hemithorax. The patient's pleural fluid was consistent with a lymphocyte predominant exudate. The patient remains on IV Lasix 40 mg twice daily. Her creatinine remains stable. The patient does report symptomatic improvement in her breathing quality following thoracentesis yesterday. Objective: The patient's most recent lab work, culture data and imaging studies have all been personally reviewed. A CTA chest was obtained which revealed no evidence for pulmonary embolism. There was again evidence of moderate to large bilateral pleural effusions, unchanged from the patient's previous study along with marked mediastinal and axillary adenopathy. Surface echocardiogram revealed normal LV size and function with an ejection fraction of 50%. There was mild global hypokinesis of the LV. - Physical Exam General: Alert, Oriented x3, Cooperative, No apparent distress HEENT: Atraumatic, PERRLA, Normocephalic Oral: No Gingival or Mucosal Lesions/ Ulcerations Neck: Supple, No Nodes, Trachea Midline Lungs: No rhonchi, No wheeze, No rales, Diminished Cardiovascular: Regular rate, Regular Rhythm, Normal S1, Normal S2, No murmurs Abdomen: Bowel Sounds Present, Soft, Non Tender Extremities: No clubbing, No cyanosis, No edema Skin: No breakdown Musculoskeletal: No Tenderness to Palpation of Joints or Extremities Neurological: Cranial nerves II-XII grossly intact, Neuro grossly intact Psych/Mental Status: Alert and oriented to time, place, person, mood and affect Vital Signs Temp Pulse Resp BP Pulse Ox 36.4 C L 64 16 123/65 H 96 03/20/18 03:28 03/20/18 03:28 03/20/18 03:28 03/20/18 03:28 03/20/18 03:28 Oxygen Flow Rate (L/min) [3] 2 Oxygen Flow Rate (L/min) [2] 2 Oxygen Flow Rate (L/min) [1 ( 2 Initial Baseline)] Oxygen Flow Rate (L/min) 1.5 Oxygen Delivery Method [3] Nasal Cannula Oxygen Delivery Method [2] Nasal Cannula Oxygen Delivery Method [1 ( Nasal Cannula Initial Baseline)] Oxygen Delivery Method Room Air Weight: 168 lb 6.931 oz Body Mass Index (BMI) 31.8 Intake and Output for Last 24 Hours 03/18/18 03/19/18 03/20/18 23:59 23:59 23:59 Intake Total 665 / 665 1080 / 1080 Output Total 1425 / 1425 3025 / 3025 Balance -760 / -760 -1945 / -1945 Microbiology Past 72 Hours 03/19/18 Unknown Gram Stain - Final Fluid - Thoracentesis Fluid Laboratory Tests Past 24 Hrs 03/19/18 03/19/18 03/19/18 11:00 11:15 11:15 WBC RBC Hgb Hct MCV MCH MCHC RDW RDW Differential Plt Count MPV Sodium Potassium Chloride Carbon Dioxide Anion Gap BUN Creatinine Estim Creat Clear Calc Est GFR (MDRD) Af Amer Est GFR (MDRD) Non-Af BUN/Creatinine Ratio Glucose Calcium Fluid Source Fluid Color Fluid Appearance Fluid WBC Fluid RBC Fluid Tot Cell Count Fld Polynuclear WBCs # Fld Polynuclear WBCs % Fluid Mononuclear WBCs Fld Mononuclear WBCs % Fluid Neutrophils Fluid Lymphocytes Fluid Monocytes Fluid Macrophages Fl Pathologist Comment Fluid Total Protein 4.3 Fluid LDH 163 Fluid Comment 2 Miscellaneous Test Pending Pending 03/19/18 03/20/18 03/20/18 11:15 05:40 05:40 WBC 7.1 RBC 4.10 L Hgb 12.3 Hct 36.5 L MCV 89.0 MCH 30.0 MCHC 33.7 RDW 14.7 H RDW Differential 47.3 H Plt Count 176 MPV 12.8 H Sodium 138 Potassium 3.8 Chloride 99 Carbon Dioxide 30.0 Anion Gap 9 BUN 17 Creatinine 0.53 L Estim Creat Clear Calc 88.71 Est GFR (MDRD) Af Amer 150 Est GFR (MDRD) Non-Af 124 BUN/Creatinine Ratio 32.2 H Glucose 113 H Calcium 10.1 Fluid Source THORACENTESIS Fluid Color RED Fluid Appearance SL CLDY Fluid WBC 1.635 Fluid RBC 0.81184 Fluid Tot Cell Count 1.668 H Fld Polynuclear WBCs # 0.077 Fld Polynuclear WBCs % 4.7 Fluid Mononuclear WBCs 1.558 Fld Mononuclear WBCs % 95.3 Fluid Neutrophils 4 Fluid Lymphocytes 89 Fluid Monocytes 5 Fluid Macrophages 2 Fl Pathologist Comment May follow Fluid Total Protein Fluid LDH Fluid Comment 2 SEE COMMENT Miscellaneous Test Clinical Impression(s) from Imaging Studies Chest X-Ray 03/17/18 15:46 IMPRESSION: Large left pleural effusion, otherwise unremarkable. Electronically Signed: Mariama Saha MD at 16:32 EST Tel , Service support , Chest CTA 03/17/18 17:49 IMPRESSION: 1. No evidence of pulmonary embolus or aortic dissection. 2. Moderate to large bilateral pleural effusions. No change from the prior study. 3. Moderate to marked mediastinal and axillary adenopathy. No change from prior. Electronically Signed: Mariama Saha MD at 19:07 EST Tel , Service support , Thoracentesis Ultrasound 03/19/18 09:30 IMPRESSION: Ultrasound-guided left thoracentesis. Electronically Signed: Denny Juarez MD at 13:07 EST Tel [phone], Service support , Chest X-Ray 03/19/18 10:35 IMPRESSION: Status post left thoracentesis. There is no evidence of pneumothorax. Electronically Signed: Denny Juarez MD at 12:43 EST Tel [phone], Service support , Medical Necessity - Tobacco Use Smoking Status: Former smoker Tobacco Use: Cigarettes Assessment/Plan All Active Problems (Last Reviewed 03/13/18 @ 14:52 by Taty Veliz) Follicular lymphoma grade III (Acute) RECOMMENDATIONS: 1. Transition from IV to p.o. Lasix regimen. 2. Encourage incentive spirometer use and mobilize patient as tolerated. 3. Await cytology and flow cytometry results of pleural fluid. IMPRESSIONS: 1. Acute hypoxic respiratory insufficiency secondary to bilateral pleural effusions The etiology for the patient's pleural effusions are most likely malignant in nature and related to her newly diagnosed follicular lymphoma. The patient underwent an ultrasound-guided thoracentesis on March 19, with 1.8 L of fluid removed from her left hemithorax. The pleural fluid was consistent with a lymphocyte predominant exudate, likely the consequence of her known underlying follicular lymphoma. In addition, a surface echocardiogram was obtained which revealed a mildly decreased ejection fraction and mild global hypokinesis of the LV. The patient has been diuresed throughout her hospitalization and her oxygenation status has responded favorably. The patient is currently maintaining appropriate oxygen saturations on room air. Would recommend transitioning from an IV to p.o. Lasix regimen. Perform walking oximetry study prior to consideration for discharge from the hospital. Pleural fluid cytology and flow cytometry results are pending. I see no reason why the patient would not be able to be discharged at some point today, with oncology follow-up. 2. Newly diagnosed follicular lymphoma Plans to initiate systemic chemotherapy as soon as the patient has been stabilized from a medical perspective. 3. Troponin elevation Potential demand ischemia, as the patient's recent echocardiogram only revealed a mild decreased ejection fraction and mild global LV hypokinesis. The patient has responded favorably to IV diuretics. This note was generated with [employer] dictation software. It may contain incorrect words, spelling, and punctuation that were not noted in checking the note before signing. Code Visit Inpatient E&M: 82271 Subs Hosp L2
[2018-03-20] MEDS: predniSONE 20 MG Tablet 100 MG PO (09:07)
[2018-03-20] MEDS: Metoprolol(XL)Succ 25 MG Tablet PO (09:07)
[2018-03-20] MEDS: Multivitamins,Therapeutic Tablet 1 TABLET PO (09:07)
[2018-03-20] MEDS: Allopurinol 300 MG Tablet PO (09:08)
[2018-03-20] MEDS: Omega-3 Acid Ethyl Esters 1 GM Capsule PO (09:08)
[2018-03-20] MEDS: Aspirin E.C. 81 MG Tablet PO (09:08)
[2018-03-20] MEDS: 0.9% NaCl Peripheral Flush Adult/Peds IV (09:08)
[2018-03-20] MEDS: Furosemide 40 MG/4 ML Vial IV (09:08)
--- NOTE | 2018-03-20 10:17 | DCINST_ITS ---
You will use the following diet at home:: No restrictions Discharge Activity: Return to Normal Activity Call your doctor if you observe: Shortness of breath, Dizziness, Fainting spells, Chest pain Additional Instructions: Continue supplemental oxygen to maintain O2 at or above 90%. Allergies/Adverse Reactions: Allergies No Known Allergies Allergy (Verified 03/17/18 14:57) Medications to take at Discharge aspirin 81 mg tablet,delayed release 81 mg PO DAILY 02/10/18 omega-3 fatty acids 1,000 mg capsule 1,000 mg PO DAILY 02/10/18 Multivitamin [Multiple Vitamins] 1 tab PO DAILY 02/25/18 Aspirin E.C. [Ecotrin] 325 mg PO PRN PRN 03/17/18 Hydrocodone/Acetaminophen [[place] 5-325 Tablet] 1 tab PO PRN PRN 03/17/18 Allopurinol [Zyloprim] 300 mg PO DAILYCM #8 tablet 03/20/18 Atorvastatin Calcium [Lipitor] 40 mg PO QHS #30 tablet 03/20/18 Furosemide [Lasix] 40 mg PO DAILY #30 tablet 03/20/18 Metoprolol(XL)Succ [Toprol Xl (Beta Landry)] 25 mg PO DAILY #30 tablet 03/20/18 predniSONE tablet 100 mg PO DAILY@0800 #15 tablet 03/20/18 The following prescriptions were given: Allopurinol [Zyloprim] 300 mg PO DAILYCM #8 tablet Atorvastatin Calcium [Lipitor] 40 mg PO QHS #30 tablet Furosemide [Lasix] 40 mg PO DAILY #30 tablet Metoprolol(XL)Succ [Toprol Xl (Beta Landry)] 25 mg PO DAILY #30 tablet predniSONE tablet 100 mg PO DAILY@0800 #15 tablet Primary Care Physician: Michael Tanner MD [Primary Care Provider] - Please follow up with your Primary Care Physician in: 1 Week Test Results: Test results from this visit will be discussed in further detail at your follow- up appointment, if applicable. Please Follow Up With: Mer Bain NP-C When: As scheduled, 03/24/2018 Proposed Discharge Date: 03/20/18
[2018-03-20 10:19] LABS: Pathologist Comment/Body Fluid Reviewed
--- NOTE | 2018-03-20 10:48 | CASEMGMT ---
Per Linnea GERMAIN, pt qualifies for home oxygen at this time. Pt states no preference for DME at this time and once provided with local DME companies, pt would like [employer]. [place] [facility] [place]. Pt/ state no further concerns/needs at this time. Pt to be discharged once tank delivered by [employer]. Sadia GERMAIN CM
--- NOTE | 2018-03-20 10:57 | PCM.DC.SUM ---
<Lianna Clayton - Last Filed: 03/20/18 11:11> Discharge Date and Diagnosis Date of Admission: 03/17/18 Date of Discharge: 03/20/18 - Primary Discharge Diagnosis 1. Acute hypoxic respiratory insufficiency secondary to bilateral pleural effusions suspected secondary to malignancy 2. Acute diastolic CHF 3. Acute NSTEMI 4. Large left-sided pleural effusion, lymphocytic exudative suspected secondary to malignancy as a result of underlying follicular lymphoma grade 3 Hospital Course and Treatment Imaging Results: Diagnostic Data Chest CTA 03/17/18 17:49 IMPRESSION: 1. No evidence of pulmonary embolus or aortic dissection. 2. Moderate to large bilateral pleural effusions. No change from the prior study. 3. Moderate to marked mediastinal and axillary adenopathy. No change from prior. Electronically Signed: Mariama Saha MD at 19:07 EST Tel , Service support , Thoracentesis Ultrasound 03/19/18 09:30 IMPRESSION: Ultrasound-guided left thoracentesis. Electronically Signed: Denny Juarez MD at 13:07 EST Tel [phone], Service support , Chest X-Ray 03/19/18 10:35 IMPRESSION: Status post left thoracentesis. There is no evidence of pneumothorax. Electronically Signed: Denny Juarez MD at 12:43 EST Tel [phone], Service support , Dr. Ruiz- Pulmonary Medicine Dr. Tapia- Cardiology Dr. Aiken- Oncology Operations: None Procedures: 2-D Echocardiogram, Thoracentesis Summary of Care Provided: The patient is a 62 year old F admitted 03/17/2018 due to shortness of breath. She was recently diagnosed with follicular lymphoma. 1. Acute hypoxic respiratory insufficiency secondary to bilateral pleural effusions suspected secondary to malignancy-patient requires supplemental oxygen with ambulation. She is ambulatory in the home. Continue supplemental oxygen with ambulation to maintain O2 at or above 90%. 2. Acute diastolic CHF-echocardiogram with EF 60%. Cardiology consulted during admission. Patient will continue Lasix 40 mg daily at discharge. Follow-up with cardiology in 1-2 weeks. 3. Acute NSTEMI-unclear etiology. Further invasive workup not pursued given extensive tumor burden. Patient will continue aspirin, statin, beta-landry. Follow-up with cardiology as noted above. 4. Large left-sided pleural effusion, lymphocytic exudative suspected secondary to malignancy as a result of underlying follicular lymphoma grade 3-oncology consulted. Patient will continue prednisone 100 mg daily through 9017. Continue allopurinol 300 mg daily for 10 days. Patient is to begin chemo 03/24/2018. Continue outpatient oncology follow-up as scheduled. General: Awake, Alert, Oriented x 3 HEENT: PERRLA, EOMI, Atraumatic Neck: Supple, negative carotid bruits Lungs: Diminished, clear to auscultation Cardiovascular: Regular Rhythm, Normal S1, Normal S2, No Murmurs, No Rubs, No Gallops Abdomen: Bowel Sounds Present, Soft, Non Tender, No HSM, No Organomegaly Extremities: No Cyanosis, No Clubbing, bilateral lower extremity edema, nonpitting Skin: No Rashes Lymphatic: No Lymph Node Enlargement Neurological: No Focal Motor or Sensory Deficit, neuro grossly intact Psych/Mental Status: Appropriate, normal affect Patient seen and examined prior to discharge. Physical assessment as noted above. Patient is stable for discharge with follow up recommendations as noted above. This patient was seen by LETICIA Isidro under the supervision of Dr. Vuong. - Physical Exam Vital Signs Temp Pulse Resp BP Pulse Ox 98.2 F 68 20 H 125/72 H 96 03/20/18 09:05 03/20/18 09:07 03/20/18 09:05 03/20/18 09:05 03/20/18 10:05 Oxygen Flow Rate (L/min) [3] 2 Oxygen Flow Rate (L/min) [2] 2 Oxygen Flow Rate (L/min) [1 ( 2 Initial Baseline)] Oxygen Flow Rate (L/min) [ 2 AMBULATION with Oxygen] Oxygen Flow Rate (L/min) 1.5 Oxygen Delivery Method [3] Nasal Cannula Oxygen Delivery Method [2] Nasal Cannula Oxygen Delivery Method [1 ( Nasal Cannula Initial Baseline)] Oxygen Delivery Method Room Air Weight: 168 lb 6.931 oz Body Mass Index (BMI) 31.8 Intake and Output for Last 24 Hours 03/18/18 03/19/18 03/20/18 23:59 23:59 23:59 Intake Total 665 / 665 1080 / 1080 Output Total 1425 / 1425 3025 / 3025 Balance -760 / -760 -1945 / -1945 Microbiology Past 72 Hours 03/19/18 Unknown Gram Stain - Final Fluid - Thoracentesis Fluid Body Fluid Culture - Preliminary No growth-Final to follow Laboratory Tests Past 24 Hrs 03/19/18 03/19/18 03/19/18 11:00 11:15 11:15 WBC RBC Hgb Hct MCV MCH MCHC RDW RDW Differential Plt Count MPV Sodium Potassium Chloride Carbon Dioxide Anion Gap BUN Creatinine Estim Creat Clear Calc Est GFR (MDRD) Af Amer Est GFR (MDRD) Non-Af BUN/Creatinine Ratio Glucose Calcium Fluid Source Fluid Color Fluid Appearance Fluid WBC Fluid RBC Fluid Tot Cell Count Fld Polynuclear WBCs # Fld Polynuclear WBCs % Fluid Mononuclear WBCs Fld Mononuclear WBCs % Fluid Neutrophils Fluid Lymphocytes Fluid Monocytes Fluid Macrophages Fl Pathologist Comment Fluid Total Protein 4.3 Fluid LDH 163 Fluid Comment 2 Miscellaneous Test Pending Pending 03/19/18 03/20/18 03/20/18 11:15 05:40 05:40 WBC 7.1 RBC 4.10 L Hgb 12.3 Hct 36.5 L MCV 89.0 MCH 30.0 MCHC 33.7 RDW 14.7 H RDW Differential 47.3 H Plt Count 176 MPV 12.8 H Sodium 138 Potassium 3.8 Chloride 99 Carbon Dioxide 30.0 Anion Gap 9 BUN 17 Creatinine 0.53 L Estim Creat Clear Calc 88.71 Est GFR (MDRD) Af Amer 150 Est GFR (MDRD) Non-Af 124 BUN/Creatinine Ratio 32.2 H Glucose 113 H Calcium 10.1 Fluid Source THORACENTESIS Fluid Color RED Fluid Appearance SL CLDY Fluid WBC 1.635 Fluid RBC 0.61175 Fluid Tot Cell Count 1.668 H Fld Polynuclear WBCs # 0.077 Fld Polynuclear WBCs % 4.7 Fluid Mononuclear WBCs 1.558 Fld Mononuclear WBCs % 95.3 Fluid Neutrophils 4 Fluid Lymphocytes 89 Fluid Monocytes 5 Fluid Macrophages 2 Fl Pathologist Comment Reviewed Fluid Total Protein Fluid LDH Fluid Comment 2 SEE COMMENT Miscellaneous Test Discharge Diet: No Restrictions Discharge Activity: Return to Normal Activity Call your doctor if you observe: Shortness of breath, Dizziness, Fainting spells, Chest pain Home Medications: Medications to take at Discharge aspirin 81 mg tablet,delayed release 81 mg PO DAILY 02/10/18 omega-3 fatty acids 1,000 mg capsule 1,000 mg PO DAILY 02/10/18 Multivitamin [Multiple Vitamins] 1 tab PO DAILY 02/25/18 Aspirin E.C. [Ecotrin] 325 mg PO PRN PRN 03/17/18 Hydrocodone/Acetaminophen [[place] 5-325 Tablet] 1 tab PO PRN PRN 03/17/18 Allopurinol [Zyloprim] 300 mg PO DAILYCM #8 tablet 03/20/18 Atorvastatin Calcium [Lipitor] 40 mg PO QHS #30 tablet 03/20/18 Furosemide [Lasix] 40 mg PO DAILY #30 tablet 03/20/18 Metoprolol(XL)Succ [Toprol Xl (Beta Landry)] 25 mg PO DAILY #30 tablet 03/20/18 predniSONE tablet 100 mg PO DAILY@0800 #15 tablet 03/20/18 Following Prescrptions Were Given to Patient: Allopurinol [Zyloprim] 300 mg PO DAILYCM #8 tablet Atorvastatin Calcium [Lipitor] 40 mg PO QHS #30 tablet Furosemide [Lasix] 40 mg PO DAILY #30 tablet Metoprolol(XL)Succ [Toprol Xl (Beta Landry)] 25 mg PO DAILY #30 tablet predniSONE tablet 100 mg PO DAILY@0800 #15 tablet Primary Care Physician: Michael Tanner MD [Primary Care Provider] - Please follow up with your Primary Care Physician in: 1 Week Please Follow Up With: Mer Bain NP-C When: As scheduled, 03/24/2018 Please Follow Up With: Matias Tapia MD When: 1-2 Weeks Disposition: Home Minutes spent on discharge:: 35 Patient Condition:: Stable Medical Necessity - Tobacco Use Smoking Status: Former smoker Tobacco Use: Cigarettes Meaningful Use Info Meaningful Use Diagnoses (Choose all that apply): CHF - CHF ARIELLE/ARB ordered at discharge?: No Reason ARIELLE/ARB not ordered?: Allergy Documented LVEF (%): 50 - Not indicated due to preserved EF <Elmer Vuong - Last Filed: 03/20/18 13:04> Hospital Course and Treatment Summary of Care Provided: This patient was seen in conjunction with LETICIA Isidro . I have independently interviewed and examined the patient and reviewed pertinent historical, laboratory, and other data. Please refer to LETICIA Isidro note for details of this patient's presentation, findings, and recommendations. I have reviewed LETICIA Isidro note and concur with documented findings. In brief, Patient is a 62-year-old lady recently diagnosed with follicular lymphoma scheduled to initiate chemotherapy who presented with progressive shortness of breath. Patient was found to have elevated troponin consistent with acute non-STEMI in addition to bilateral moderate to large pleural effusion. Admitted to a monitored bed with consultation placed to both pulmonary medicine as well as cardiology. Patient is scheduled to undergo ultrasound-guided thoracocentesis on 03/19/2018. Assessment: 1. Acute respiratory insufficiency secondary to bilateral pleural effusion suspected to be malignant in nature. 2. Acute diastolic congestive heart failure patient started on Lasix monitoring strict input and output. An echo obtained on 03/07/2018 demonstrated ejection fraction of 60% with a pulmonary artery systolic pressure of 33 mmHg 3. Acute non-STEMI: Troponin peaked at 3.4. 4. Large left-sided pleural effusion suspected to be secondary to malignant pleural effusion 5. Follicular lymphoma grade 3 6. DVT prophylaxis SC Lovenox Hospital course: As told above by Lianna Clayton - Physical Exam Vital Signs Temp Pulse Resp BP Pulse Ox 98.2 F 84 20 H 125/72 H 96 03/20/18 09:05 03/20/18 11:01 03/20/18 09:05 03/20/18 09:05 03/20/18 10:05 Oxygen Flow Rate (L/min) [3] 2 Oxygen Flow Rate (L/min) [2] 2 Oxygen Flow Rate (L/min) [1 ( 2 Initial Baseline)] Oxygen Flow Rate (L/min) [ 2 AMBULATION with Oxygen] Oxygen Flow Rate (L/min) 1.5 Oxygen Delivery Method [3] Nasal Cannula Oxygen Delivery Method [2] Nasal Cannula Oxygen Delivery Method [1 ( Nasal Cannula Initial Baseline)] Oxygen Delivery Method Room Air Weight: 76.4 kg Body Mass Index (BMI) 31.8 Intake and Output for Last 24 Hours 03/18/18 03/19/18 03/20/18 23:59 23:59 23:59 Intake Total 665 / 665 1080 / 1080 Output Total 1425 / 1425 3025 / 3025 Balance -760 / -760 -1945 / -1945 Microbiology Past 72 Hours 03/19/18 Unknown Gram Stain - Final Fluid - Thoracentesis Fluid Body Fluid Culture - Preliminary No growth-Final to follow Laboratory Tests Past 24 Hrs 03/19/18 03/20/18 03/20/18 11:15 05:40 05:40 WBC 7.1 RBC 4.10 L Hgb 12.3 Hct 36.5 L MCV 89.0 MCH 30.0 MCHC 33.7 RDW 14.7 H RDW Differential 47.3 H Plt Count 176 MPV 12.8 H Sodium 138 Potassium 3.8 Chloride 99 Carbon Dioxide 30.0 Anion Gap 9 BUN 17 Creatinine 0.53 L Estim Creat Clear Calc 88.71 Est GFR (MDRD) Af Amer 150 Est GFR (MDRD) Non-Af 124 BUN/Creatinine Ratio 32.2 H Glucose 113 H Calcium 10.1 Fl Pathologist Comment Reviewed Code Visit Inpatient E&M: 89375 Disch Hosp
--- NOTE | 2018-03-20 11:02 | DS.PCM_ITS ---
<Lianna Clayton - Last Filed: 03/20/18 11:11> Discharge Date and Diagnosis Date of Admission: 03/17/18 Date of Discharge: 03/20/18 - Primary Discharge Diagnosis 1. Acute hypoxic respiratory insufficiency secondary to bilateral pleural effusions suspected secondary to malignancy 2. Acute diastolic CHF 3. Acute NSTEMI 4. Large left-sided pleural effusion, lymphocytic exudative suspected secondary to malignancy as a result of underlying follicular lymphoma grade 3 Hospital Course and Treatment Imaging Results: Diagnostic Data Chest CTA 03/17/18 17:49 IMPRESSION: 1. No evidence of pulmonary embolus or aortic dissection. 2. Moderate to large bilateral pleural effusions. No change from the prior study. 3. Moderate to marked mediastinal and axillary adenopathy. No change from prior. Electronically Signed: Mariama Saha MD at 19:07 EST Tel , Service support , Thoracentesis Ultrasound 03/19/18 09:30 IMPRESSION: Ultrasound-guided left thoracentesis. Electronically Signed: Denny Juarez MD at 13:07 EST Tel [phone], Service support , Chest X-Ray 03/19/18 10:35 IMPRESSION: Status post left thoracentesis. There is no evidence of pneumothorax. Electronically Signed: Denny Juarez MD at 12:43 EST Tel [phone], Service support , Dr. Ruiz- Pulmonary Medicine Dr. Tapia- Cardiology Dr. Aiken- Oncology Operations: None Procedures: 2-D Echocardiogram, Thoracentesis Summary of Care Provided: The patient is a 62 year old F admitted 03/17/2018 due to shortness of breath. She was recently diagnosed with follicular lymphoma. 1. Acute hypoxic respiratory insufficiency secondary to bilateral pleural effusions suspected secondary to malignancy-patient requires supplemental oxygen with ambulation. She is ambulatory in the home. Continue supplemental oxygen with ambulation to maintain O2 at or above 90%. 2. Acute diastolic CHF-echocardiogram with EF 60%. Cardiology consulted during admission. Patient will continue Lasix 40 mg daily at discharge. Follow-up with cardiology in 1-2 weeks. 3. Acute NSTEMI-unclear etiology. Further invasive workup not pursued given extensive tumor burden. Patient will continue aspirin, statin, beta-landry. Follow-up with cardiology as noted above. 4. Large left-sided pleural effusion, lymphocytic exudative suspected secondary to malignancy as a result of underlying follicular lymphoma grade 3-oncology consulted. Patient will continue prednisone 100 mg daily through [id number]. Continue allopurinol 300 mg daily for 10 days. Patient is to begin chemo 03/24/2018. Continue outpatient oncology follow-up as scheduled. General: Awake, Alert, Oriented x 3 HEENT: PERRLA, EOMI, Atraumatic Neck: Supple, negative carotid bruits Lungs: Diminished, clear to auscultation Cardiovascular: Regular Rhythm, Normal S1, Normal S2, No Murmurs, No Rubs, No Gallops Abdomen: Bowel Sounds Present, Soft, Non Tender, No HSM, No Organomegaly Extremities: No Cyanosis, No Clubbing, bilateral lower extremity edema, nonpitting Skin: No Rashes Lymphatic: No Lymph Node Enlargement Neurological: No Focal Motor or Sensory Deficit, neuro grossly intact Psych/Mental Status: Appropriate, normal affect Patient seen and examined prior to discharge. Physical assessment as noted above. Patient is stable for discharge with follow up recommendations as noted above. This patient was seen by LETICIA Isidro under the supervision of Dr. Vuong. - Physical Exam Vital Signs Temp Pulse Resp BP Pulse Ox 98.2 F 68 20 H 125/72 H 96 03/20/18 09:05 03/20/18 09:07 03/20/18 09:05 03/20/18 09:05 03/20/18 10:05 Oxygen Flow Rate (L/min) [3] 2 Oxygen Flow Rate (L/min) [2] 2 Oxygen Flow Rate (L/min) [1 ( 2 Initial Baseline)] Oxygen Flow Rate (L/min) [ 2 AMBULATION with Oxygen] Oxygen Flow Rate (L/min) 1.5 Oxygen Delivery Method [3] Nasal Cannula Oxygen Delivery Method [2] Nasal Cannula Oxygen Delivery Method [1 ( Nasal Cannula Initial Baseline)] Oxygen Delivery Method Room Air Weight: 168 lb 6.931 oz Body Mass Index (BMI) 31.8 Intake and Output for Last 24 Hours 03/18/18 03/19/18 03/20/18 23:59 23:59 23:59 Intake Total 665 / 665 1080 / 1080 Output Total 1425 / 1425 3025 / 3025 Balance -760 / -760 -1945 / -1945 Microbiology Past 72 Hours 03/19/18 Unknown Gram Stain - Final Fluid - Thoracentesis Fluid Body Fluid Culture - Preliminary No growth-Final to follow Laboratory Tests Past 24 Hrs 03/19/18 03/19/18 03/19/18 11:00 11:15 11:15 WBC RBC Hgb Hct MCV MCH MCHC RDW RDW Differential Plt Count MPV Sodium Potassium Chloride Carbon Dioxide Anion Gap BUN Creatinine Estim Creat Clear Calc Est GFR (MDRD) Af Amer Est GFR (MDRD) Non-Af BUN/Creatinine Ratio Glucose Calcium Fluid Source Fluid Color Fluid Appearance Fluid WBC Fluid RBC Fluid Tot Cell Count Fld Polynuclear WBCs # Fld Polynuclear WBCs % Fluid Mononuclear WBCs Fld Mononuclear WBCs % Fluid Neutrophils Fluid Lymphocytes Fluid Monocytes Fluid Macrophages Fl Pathologist Comment Fluid Total Protein 4.3 Fluid LDH 163 Fluid Comment 2 Miscellaneous Test Pending Pending 03/19/18 03/20/18 03/20/18 11:15 05:40 05:40 WBC 7.1 RBC 4.10 L Hgb 12.3 Hct 36.5 L MCV 89.0 MCH 30.0 MCHC 33.7 RDW 14.7 H RDW Differential 47.3 H Plt Count 176 MPV 12.8 H Sodium 138 Potassium 3.8 Chloride 99 Carbon Dioxide 30.0 Anion Gap 9 BUN 17 Creatinine 0.53 L Estim Creat Clear Calc 88.71 Est GFR (MDRD) Af Amer 150 Est GFR (MDRD) Non-Af 124 BUN/Creatinine Ratio 32.2 H Glucose 113 H Calcium 10.1 Fluid Source THORACENTESIS Fluid Color RED Fluid Appearance SL CLDY Fluid WBC 1.635 Fluid RBC 0.69899 Fluid Tot Cell Count 1.668 H Fld Polynuclear WBCs # 0.077 Fld Polynuclear WBCs % 4.7 Fluid Mononuclear WBCs 1.558 Fld Mononuclear WBCs % 95.3 Fluid Neutrophils 4 Fluid Lymphocytes 89 Fluid Monocytes 5 Fluid Macrophages 2 Fl Pathologist Comment Reviewed Fluid Total Protein Fluid LDH Fluid Comment 2 SEE COMMENT Miscellaneous Test Discharge Diet: No Restrictions Discharge Activity: Return to Normal Activity Call your doctor if you observe: Shortness of breath, Dizziness, Fainting spells, Chest pain Home Medications: Medications to take at Discharge aspirin 81 mg tablet,delayed release 81 mg PO DAILY 02/10/18 omega-3 fatty acids 1,000 mg capsule 1,000 mg PO DAILY 02/10/18 Multivitamin [Multiple Vitamins] 1 tab PO DAILY 02/25/18 Aspirin E.C. [Ecotrin] 325 mg PO PRN PRN 03/17/18 Hydrocodone/Acetaminophen [[place] 5-325 Tablet] 1 tab PO PRN PRN 03/17/18 Allopurinol [Zyloprim] 300 mg PO DAILYCM #8 tablet 03/20/18 Atorvastatin Calcium [Lipitor] 40 mg PO QHS #30 tablet 03/20/18 Furosemide [Lasix] 40 mg PO DAILY #30 tablet 03/20/18 Metoprolol(XL)Succ [Toprol Xl (Beta Landry)] 25 mg PO DAILY #30 tablet 03/20/18 predniSONE tablet 100 mg PO DAILY@0800 #15 tablet 03/20/18 Following Prescrptions Were Given to Patient: Allopurinol [Zyloprim] 300 mg PO DAILYCM #8 tablet Atorvastatin Calcium [Lipitor] 40 mg PO QHS #30 tablet Furosemide [Lasix] 40 mg PO DAILY #30 tablet Metoprolol(XL)Succ [Toprol Xl (Beta Landry)] 25 mg PO DAILY #30 tablet predniSONE tablet 100 mg PO DAILY@0800 #15 tablet Primary Care Physician: Michael Tanner MD [Primary Care Provider] - Please follow up with your Primary Care Physician in: 1 Week Please Follow Up With: Mer Bain NP-C When: As scheduled, 03/24/2018 Please Follow Up With: Matias Tapia MD When: 1-2 Weeks Disposition: Home Minutes spent on discharge:: 35 Patient Condition:: Stable Medical Necessity - Tobacco Use Smoking Status: Former smoker Tobacco Use: Cigarettes Meaningful Use Info Meaningful Use Diagnoses (Choose all that apply): CHF - CHF ARIELLE/ARB ordered at discharge?: No Reason ARIELLE/ARB not ordered?: Allergy Documented LVEF (%): 50 - Not indicated due to preserved EF <Elmer Vuong - Last Filed: 03/20/18 13:04> Hospital Course and Treatment Summary of Care Provided: This patient was seen in conjunction with LETICIA Isidro . I have independently interviewed and examined the patient and reviewed pertinent historical, laboratory, and other data. Please refer to LETICIA Isidro note for details of this patient's presentation, findings, and recommendations. I have reviewed LETICIA Isidro note and concur with documented findings. In brief, Patient is a 62-year-old lady recently diagnosed with follicular lymphoma scheduled to initiate chemotherapy who presented with progressive shortness of breath. Patient was found to have elevated troponin consistent with acute non-STEMI in addition to bilateral moderate to large pleural effusion. Admitted to a monitored bed with consultation placed to both pulmonary medicine as well as cardiology. Patient is scheduled to undergo ultrasound-guided thoracocentesis on 03/19/2018. Assessment: 1. Acute respiratory insufficiency secondary to bilateral pleural effusion suspected to be malignant in nature. 2. Acute diastolic congestive heart failure patient started on Lasix monitoring strict input and output. An echo obtained on 03/07/2018 demonstrated ejection fraction of 60% with a pulmonary artery systolic pressure of 33 mmHg 3. Acute non-STEMI: Troponin peaked at 3.4. 4. Large left-sided pleural effusion suspected to be secondary to malignant pleural effusion 5. Follicular lymphoma grade 3 6. DVT prophylaxis SC Lovenox Hospital course: As told above by Lianna Clayton - Physical Exam Vital Signs Temp Pulse Resp BP Pulse Ox 98.2 F 84 20 H 125/72 H 96 03/20/18 09:05 03/20/18 11:01 03/20/18 09:05 03/20/18 09:05 03/20/18 10:05 Oxygen Flow Rate (L/min) [3] 2 Oxygen Flow Rate (L/min) [2] 2 Oxygen Flow Rate (L/min) [1 ( 2 Initial Baseline)] Oxygen Flow Rate (L/min) [ 2 AMBULATION with Oxygen] Oxygen Flow Rate (L/min) 1.5 Oxygen Delivery Method [3] Nasal Cannula Oxygen Delivery Method [2] Nasal Cannula Oxygen Delivery Method [1 ( Nasal Cannula Initial Baseline)] Oxygen Delivery Method Room Air Weight: 76.4 kg Body Mass Index (BMI) 31.8 Intake and Output for Last 24 Hours 03/18/18 03/19/18 03/20/18 23:59 23:59 23:59 Intake Total 665 / 665 1080 / 1080 Output Total 1425 / 1425 3025 / 3025 Balance -760 / -760 -1945 / -1945 Microbiology Past 72 Hours 03/19/18 Unknown Gram Stain - Final Fluid - Thoracentesis Fluid Body Fluid Culture - Preliminary No growth-Final to follow Laboratory Tests Past 24 Hrs 03/19/18 03/20/18 03/20/18 11:15 05:40 05:40 WBC 7.1 RBC 4.10 L Hgb 12.3 Hct 36.5 L MCV 89.0 MCH 30.0 MCHC 33.7 RDW 14.7 H RDW Differential 47.3 H Plt Count 176 MPV 12.8 H Sodium 138 Potassium 3.8 Chloride 99 Carbon Dioxide 30.0 Anion Gap 9 BUN 17 Creatinine 0.53 L Estim Creat Clear Calc 88.71 Est GFR (MDRD) Af Amer 150 Est GFR (MDRD) Non-Af 124 BUN/Creatinine Ratio 32.2 H Glucose 113 H Calcium 10.1 Fl Pathologist Comment Reviewed Code Visit Inpatient E&M: 75815 Disch Hosp
--- NOTE | 2018-03-20 11:17 | CASEMGMT ---
SW checked in with patient regarding advance directives. She was getting ready to walk with nursing support worker for home O2 qualifications. SW left her the documents and she also has the information on the outpatient Assayer program. She did not wish to complete them at this time as she is getting ready to go home. Macy RENO MSW
--- NOTE | 2018-03-20 12:09 | PHA.DC.COU ---
Pharmacy Services has performed discharge medication counseling for this patient. The patient was counseled on the following discharge medications and changes in medications for homegoing review. The Reason for Use, instructions for use, and potential side effects were reviewed for all new medications. The patient's questions regarding all of their medications were answered. The patient was able to verbally demonstrate an understanding of their discharge medications. Home Medications Allopurinol [Zyloprim] 300 mg PO DAILYCM #8 tablet 03/20/18 Atorvastatin Calcium [Lipitor] 40 mg PO QHS #30 tablet 03/20/18 Furosemide [Lasix] 40 mg PO DAILY #30 tablet 03/20/18 Metoprolol(XL)Succ [Toprol Xl (Beta Landry)] 25 mg PO DAILY #30 tablet 03/20/18 predniSONE tablet 100 mg PO DAILY@0800 #15 tablet 03/20/18
[2018-03-20 15:45] LABS: Cytology, Body Fluid / CSF SEE PATHOLOGY REPORT
--- NOTE | 2018-03-21 16:04 | CASEMGMT ---
MARCELLUS HARRIS Discharge F/U Phone Call LACE: 11 Strata: 3 Discharge date: 03/20/18 Call date: 03/21/18 Call time: [id number] Duration: 7 minutes Admission dx: NSTEMI, left malignant pleural effusion Pt states has been doing 'ok' since discharge. Pt states no questions regarding discharge instructions or medications at this time. Pt states has 1st chemo on saturday at 0800. Pt states no suggestions for [facility] at this time. Pt states that this was her first time ever to stay in a hospital and 'Everything was very nice.' Pt states no further questions/concerns/needs at this time. [place] MARCELLUS HARRIS
== END 2018-03-20 13:09 | disposition home or self-care (01) | DRG 840 ==
LOC: ED 16:27 → PCU 19:49
PROVIDERS: Internal Medicine Critical Care Medicine; Admitting Provider Student in an Organized Health Care Education/Training Program; Emergency Provider Emergency Medicine; Family Provider Family Medicine; PCP Family Medicine; Referring Provider Student in an Organized Health Care Education/Training Program; Visit Provider Internal Medicine
DX: C82.20 Follicular lymphoma grade III, unspecified, unspecified site (principal); I21.4 Non-ST elevation (NSTEMI) myocardial infarction; I50.31 Acute diastolic (congestive) heart failure; J91.8 Pleural effusion in other conditions classified elsewhere; R09.02 Hypoxemia; R06.89 Other abnormalities of breathing; Z87.891 Personal history of nicotine dependence; I11.0 Hypertensive heart disease with heart failure
CPT/HCPCS: 32555; 36415; 71046; 71275; 80048; 80076; 83615; 83735; 83880; 84156; 84157; 84484; 85025; 85027; 85610; 85730; 87070; 87075; 87205; 88108; 88305; 88313; 88341; 88342; 89050; 93005; 93308; 99285; 99406; Q9967; A4216; J1940

== ENCOUNTER → 2018-03-26 16:03 | Outpatient (CLI) | payer OTHER, SELFPAY ==
[2018-03-25 14:18] VITALS: BMI 31.7
--- NOTE | 2018-03-26 16:05 | VDLE_ITS ---
Reason For Study: LEG SWELLING Procedure LEFT Exam performed in department. GSV is normal. A preliminary report was called and/or faxed CFV is compressible, spontaneous, phasic, to Harmony Bain. competent, and demonstrates normal augmentation. FV is compressible, spontaneous, phasic, competent and demonstrates normal augmentation. POP V is compressible, spontaneous, phasic, competent and demonstrates normal augmentation. T/P Trunk is compressible. PTV is compressible. LT PerV is compressible. Heterogenous, vascularized structures noted lt groin. Interpretation Summary Deep veins of the left lower extremity are patent and compressible segmentally. There is no evidence of left lower extremity deep vein thrombosis. Valvular competence appears intact within the proximal deep venous system on the left . The left greater saphenous vein appears patent and compressible segmentally. Heterogeneous, vascularized structures are noted in the left groin, which may represent lymph nodes. Clinical correlation is advised. Ordering Physician: Mer Bain Referring Physician: Mer Bain Performed By: Yisel Murdock RVT
--- OUTSIDE RECORDS SUMMARY | 2018-05-12 21:49 | XMS RPT_ITS ---
:1955 Author Organization OHIP Support Name Relationship Address Phone VALENTIN GLORIA Unavailable [address] + [place] [address] UE Unavailable Unavailable Unavailable VALENTIN, GLORIA Unavailable [address] + [place] [address] UE Unavailable Unavailable Unavailable VALENTIN, GLORIA Unavailable [address] + [place] [address] UE Unavailable Unavailable Unavailable VALENTIN, GLORIA Unavailable [address] [place] [address] RD + [place] [address] UE Unavailable Unavailable Unavailable VALENTIN, GLORIA Unavailable [address] + [place] [address] UE Unavailable Unavailable Unavailable VALENTIN, GLORIA Unavailable [address] + [place] [address] UE Unavailable Unavailable Unavailable VALENTIN, GLORIA Unavailable [address] + [place] [address] UE Unavailable Unavailable Unavailable VALENTIN, GLORIA Unavailable [address] + [place] [address] UE Unavailable Unavailable Unavailable VALENTIN, GLORIA Unavailable [address] + [place] [address] UE Unavailable Unavailable Unavailable VALENTIN, GLORIA Unavailable [address] + [place] [address] UE Unavailable Unavailable Unavailable VALENTIN, GLORIA Unavailable [address] + [place] [address] UE Unavailable Unavailable Unavailable VALENTIN, GLORIA Unavailable [address] + [place] [address] UE Unavailable Unavailable Unavailable VALENTIN, GLORIA Unavailable [address] + [place] [address] UE Unavailable Unavailable Unavailable VALENTIN, GLORIA Unavailable [address] + [place] [address] UE Unavailable Unavailable Unavailable VALENTIN, GLORIA Unavailable [address] + [place] [address] UE Unavailable Unavailable Unavailable VALENTIN, GLORIA Unavailable [address] + [place] [address] UE Unavailable Unavailable Unavailable VALENTIN, GLORIA Unavailable [address] + [place] [address] UE Unavailable Unavailable Unavailable VALENTIN, GLORIA Unavailable [address] + [place] [address] UE Unavailable Unavailable Unavailable VALENTIN, GLORIA Unavailable [address] + [place] [address] UE Unavailable Unavailable Unavailable VALENTIN, GLORIA Unavailable [address] + [place] [address] UE Unavailable Unavailable Unavailable VALENTIN, GLORIA Unavailable [address] + [place] [address] UE Unavailable Unavailable Unavailable VALENTIN, GLORIA Unavailable [address] + [place] [address] UE Unavailable Unavailable Unavailable VALENTIN, GLORIA Unavailable [address] + [place] [address] UE Unavailable Unavailable Unavailable VALENTIN, GLORIA Unavailable [address] + [place] [address] UE Unavailable Unavailable Unavailable VALENTIN, GLORIA Unavailable [address] + [place] [address] UE Unavailable Unavailable Unavailable VALENTIN, GLORIA Unavailable [address] + [place] [address] UE Unavailable Unavailable Unavailable VALENTIN, GLORIA Unavailable [address] + [place] [address] UE Unavailable Unavailable Unavailable VALENTIN, GLORIA Unavailable [address] + [place] [address] UE Unavailable Unavailable Unavailable VALENTIN, GLORIA Unavailable [address] + [place] [address] UE Unavailable Unavailable Unavailable VALENTIN, GLORIA Unavailable [address] + [place] [address] UE Unavailable Unavailable Unavailable VALENTIN, GLORIA Unavailable [facility] [address] + [place] [address] UE Unavailable Unavailable Unavailable VALENTIN, GLORIA Unavailable [address] [place] [address] RD + [place] [address] UE Unavailable Unavailable Unavailable VALENTIN, GLORIA Unavailable [address] [place] [address] RD + [place] [address] UE Unavailable Unavailable Unavailable VALENTIN, GLORIA Unavailable [facility] [address] + [place] [address] UE Unavailable Unavailable Unavailable VALENTIN, GLORIA Unavailable [address] [place] [address] RD + [place] [address] UE Unavailable Unavailable Unavailable VALENTIN, GLORIA Unavailable [facility] [address] + [place] [address] UE Unavailable Unavailable Unavailable VALENTIN, GLORIA Unavailable [facility] [address] + [place] [address] UE Unavailable Unavailable Unavailable VALENTIN, GLORIA Unavailable [address] [place] [address] RD + [place] [address] UE Unavailable Unavailable Unavailable VALENTIN, GLORIA Unavailable [facility] [address] + [place] [address] UE Unavailable Unavailable Unavailable VALENTIN, GLORIA Unavailable [facility] [address] + [place] [address] UE Unavailable Unavailable Unavailable Care Team Providers Name Role Phone Mer Bain Attending Unavailable Catina Tanner Primary Care Unavailable Sam Aiken Consulting Unavailable Mer Bain Attending Unavailable Mer Bain Referring Unavailable Catina Tanner Primary Care Unavailable Catina Tanner Consulting Unavailable Steven Marcial Consulting Unavailable Belia Rueda Consulting Unavailable Mer Bain Attending Unavailable Alfred Ruiz D.O. Referring Unavailable Matias Tapia Attending Unavailable Nelli, Sam Referring Unavailable OdellMer freire Attending Unavailable Addison Baina Referring Unavailable Catina Tanner Primary Care Unavailable Mer Bain Attending Unavailable Catina Tanner Primary Care Unavailable Sam iAken Consulting Unavailable OdellAddison freirea Attending Unavailable Addison Baina Referring Unavailable SchCatina quiros Primary Care Unavailable Matias Tapia Attending Unavailable Catina Tanner E Referring Unavailable Matias Tapia Attending Unavailable Elmer Vuong Referring Unavailable Thomas Castro Attending Unavailable Apolonia Moe Referring Unavailable SchCatina quiros Primary Care Unavailable Killian Lacy Attending Unavailable Sam Aiken Attending Unavailable Catina Tanner Primary Care Unavailable Iscyg, Sam Consulting Unavailable Catina Tanner Referring Unavailable OdellMer freire Attending Unavailable Catina Tanner Primary Care Unavailable Nelli, Sam Consulting Unavailable Catina Tanner Referring Unavailable SchCatina quiros Attending Unavailable SchCatina quiros Referring Unavailable SchCatina quiros Primary Care Unavailable Catina Tanner Attending Unavailable Catina Tanner Referring Unavailable SchCatina quiros Primary Care Unavailable SchCatina quiros Attending Unavailable Catina Tanner Referring Unavailable SchCatina quiros Primary Care Unavailable Mukesh Martin Attending Unavailable Catina Tanner Referring Unavailable CeMukesh soto Attending Unavailable Catina Tanner Referring Unavailable Mukesh Martin Attending Unavailable CebulMukesh Referring Unavailable Catina Tanner Primary Care Unavailable CebulMukesh Attending Unavailable CebulMukesh Referring Unavailable SchCatina quiros Primary Care Unavailable Catina Tanner Attending Unavailable Catina Tanner Primary Care Unavailable Sam Aiken Attending Unavailable Catina Tanner Primary Care Unavailable Mukesh Martin Attending Unavailable Catina Tanner Referring Unavailable Nelli, Sam Attending Unavailable Catina Tanner Primary Care Unavailable Nelli, Clarisseour Consulting Unavailable Catina Tanner Referring Unavailable Nelli, Sam Attending Unavailable Catina Tanner Primary Care Unavailable Isckarus, Sam Referring Unavailable Isckarus, Sam Attending Unavailable Isckarus, Mansour Referring Unavailable Schinner, Catina E Primary Care Unavailable Schinner, Catina E Attending Unavailable Schinner, Catina E Referring Unavailable Schinner, Catina E Primary Care Unavailable Veronica Mukesh Attending Unavailable Cebul, Mukesh Referring Unavailable Schinner, Catina E Primary Care Unavailable Isckarus, Clarisseour Attending Unavailable Schinner, Catina E Primary Care Unavailable Isckarus, Mansour Consulting Unavailable Cebul, Mukesh Attending Unavailable Cebul, Mukesh Referring Unavailable Schinner, Catina E Primary Care Unavailable Cebul, Mukesh Consulting Unavailable Schinner, Catina E Primary Care Unavailable Koram, Apolonia Alma Admitting Unavailable Koram, Apolonia Alma Referring Unavailable Alfred Ruiz D.O. Consulting Unavailable Elmer Vuong Attending Unavailable Willie, Matias Consulting Unavailable Isckarus, Mansour Consulting Unavailable Koram, Apolonia Alma Admitting Unavailable Koram, Apolonia Alma Attending Unavailable Koram, Apolonia Alma Referring Unavailable Schinner, Catina E Primary Care Unavailable Koram, Apolonia Alma Consulting Unavailable Koram, Apolonia Alma Admitting Unavailable Alfred Ruiz D.O. Attending Unavailable Koram, Apolonia Alma Referring Unavailable Schinner, Catina E Primary Care Unavailable Alfred Ruiz D.O. Consulting Unavailable Willie, [place]alus[place] Consulting Unavailable Elmer Vuong Consulting Unavailable Koram, Apolonia Alma Admitting Unavailable Elmer Vuong Attending Unavailable Koram, Apolonia Alma Referring Unavailable Schinner, Catina E Primary Care Unavailable Alfred Ruiz D.O. Consulting Unavailable Willie, [place] Consulting Unavailable Elmer Vuong Consulting Unavailable Koram, Apolonia Alma Admitting Unavailable Willie, Matias Attending Unavailable Koram, Apolonia Alma Referring Unavailable Schinner, Catina E Primary Care Unavailable Alfred Ruiz D.O. Consulting Unavailable Willie, Matias Consulting Unavailable Elmer Vuong Consulting Unavailable Koram, Apolonia Alma Admitting Unavailable Alfred Ruiz D.O. Attending Unavailable Koram, Apolonia Alma Referring Unavailable Schinner, Catina E Primary Care Unavailable Alfred Ruiz D.O. Consulting Unavailable Willie, Amtias Consulting Unavailable Sunnikarus, Mansour Consulting Unavailable Elmer Vuong Consulting Unavailable Koram, Apolonia Alma Admitting Unavailable Elmer Vuong Attending Unavailable Koram, Apolonia Alma Referring Unavailable Schinner, Catina E Primary Care Unavailable Alfred Ruiz D.O. Consulting Unavailable Willie, [place] Consulting Unavailable Isckarus, Mansour Consulting Unavailable Kittoe, Elmer Consulting Unavailable Koram, Apolonia Alma Admitting Unavailable Alfred Ruiz D.O. Attending Unavailable Koram, Apolonia Alma Referring Unavailable Catina Tanner Primary Care Unavailable Alfred Ruiz D.O. Consulting Unavailable Willie, [place] Consulting Unavailable Isckarus, Mansour Consulting Unavailable Kittoe, Elmer Consulting Unavailable Koram, Apolonia Alma Admitting Unavailable Koram, Apolonia Alma Referring Unavailable Catina Tanner Primary Care Unavailable Alfred Ruiz D.O. Consulting Unavailable Kittoe, Elmer Attending Unavailable Willie, [place]alus[place] Consulting Unavailable Isckarus, Mansour Consulting Unavailable Kittoe, Elmer Consulting Unavailable Isckarus, Mansour Attending Unavailable Catina Tanner Primary Care Unavailable Isckarus, Mansour Consulting Unavailable PROBLEMS PROBLEMS DATE TYPE CONDITION / CODE ATTENDING STATUS SOURCE 05/01/2018 Unknown C82.20 - Follicular Odell, Active [facility] lymphoma grade III, [facility] unspecified, Hospital unspecified site / Repository C82.20(ICD-10) 05/01/2018 Unknown Z79.899 - Other long Odell, Active [facility] term (current) drug [facility] therapy / Hospital Z79.899(ICD-10) Repository 04/02/2018 Unknown R06.09 - Other forms Odell, Active [facility] of dyspnea / [facility] R06.09(ICD-10) Hospital Repository 04/02/2018 Unknown R06.89 - Other Odell, Active [facility] abnormalities of [facility] breathing / Hospital R06.89(ICD-10) Repository 04/02/2018 Unknown J90 - Pleural Odell, Active [facility] effusion, not [facility] elsewhere classified / Hospital J90(ICD-10) Repository 04/02/2018 Unknown Z01.812 - Encounter Odell, Active [facility] for preprocedural [facility] laboratory examination Hospital / Z01.812(ICD-10) Repository 04/02/2018 Unknown Z01.818 - Encounter Odell, Active [facility] for other [facility] preprocedural Hospital examination / Repository Z01.818(ICD-10) 04/07/2018 Unknown R94.31 - Abnormal [place], Active [facility] electrocardiogram [facility] [ECG] [EKG] / Hospital R94.31(ICD-10) Repository 04/07/2018 Unknown I11.0 - Hypertensive [place], Active [facility] heart disease with [facility] heart failure / Hospital I11.0(ICD-10) Repository 04/07/2018 Unknown I50.31 - Acute [place], Active [facility] diastolic (congestive) [facility] heart failure / Hospital I50.31(ICD-10) Repository 04/18/2018 Unknown I21.4 - Non-ST [place], Elmer Active [facility] elevation (NSTEMI) [facility] myocardial infarction Hospital / I21.4(ICD-10) Repository 03/14/2018 Unknown G89.18 - Other acute CebulMukesh Active [facility] postprocedural pain / [facility] G89.18(ICD-10) Hospital Repository 02/14/2018 Unknown R59.1 - Generalized [place]esh Active [facility] enlarged lymph nodes / Community R59.1(ICD-10) Hospital Repository 02/13/2018 Unknown C85.90 - Non-Hodgkin Cebul, Mukesh Active [facility] lymphoma, unspecified, Community unspecified site / Hospital C85.90(ICD-10) Repository PROCEDURES PROCEDURES No Procedure Records FoundRESULTS RESULTS ONCOLOGY VISIT REPORT Observed: 04/28/2018 Status: F Source: [place] 11:11 AM [facility] REPOSITORY [facility] [address] [place] [id number] OFFICE VISIT Date of Service: 04/28/18 1030 MR#: [id number] Acct: [id number] Name: CORI CORRIGAN Rep #: [id number] : 1955 From: Mer KELLY Age/Sex: 62/F Location: [facility] Status: Signed Subjective - Date of Service Date of Service:: 04/28/18 - Chief Complaint Lymphoma on treatment - [...] CD138 (B-A38) negative BCL-2 (bcl-2/100/D5) positive BCL-6 (KO086R/A8) positive Cyclin D1/BCL-1 (SP4) negative Brethren (polyclonal) negative Lambda (polyclonal) negative MUM1 (MRQ-43) [...] viable neoplastic transformation involving the splenic parenchyma. (Sophia., Journal of Nuclear Medicine 44:1072, 2004). 6. Diffuse increased glucose concentration observed in the appendicular, axial skeletal structures likely represents neoplasm. (doyle Andrade, Clinical Nuclear Medicine, 29:161, 2004). Electronic Signature Germán Milner D.O. Treatment: R CHOP March 24, 2018- - Interval History The patient is presenting to clinic accompanied by for follow up. Patient received cycle 2 R CHOP on 04/17/18. Concerns today include reflux although reports Zantac is effective. Nausea mild, intermittent. Required 2 doses of Zofran. Did not result in any episodes of emesis. C/o constipation. Tried prune juice for several days last week without relief. Administered Miralax on 04/25/18, was able to produce a small, hard stool this morning. Denies abd pain, hemorrhoids, hematochezia. Lower extremity swelling markedly improved. Exertional dyspnea resolved. Appetite good, despite taste disturbance. PO fluid intake likely inadequate. Denies fever/chills, sweats, headache, CP, palpitations, and any overt episodes of bleeding/abnormal bruising. - Past Medical/Social History Past Medical History Cancer: Lymphoma Social History Social History: No changes Smoking Status Former smoker Review of Systems Constitutional:: Reports: Fatigue - mild. Denies: Fever, Sweats, Weight loss, Appetite change, Chills Cardiovascular:: Denies: Chest pain, Palpitations, Dyspnea on exertion, Orthopnea, PND, Shortness of breath Respiratory: Denies: Cough, Hemoptysis, Shortness of Breath, Wheezing Gastrointestinal:: Reports: Nausea, Constipation. Denies: Abdominal pain, Vomiting, Diarrhea, Hematochezia Genitourinary: Denies: Dysuria, Hematuria, 15, Flank pain Musculoskeletal:: Denies: Back pain, Myalgia, Arthralgia Skin: Denies: Rash, Skin Changes, Wounds Neurological:: Denies: Headache, Dizziness, Numbness, Tingling, Visual changes, Tinnitus, Hearing loss Psychiatric: Denies: Anxiety, Depression, Homicidal Ideations, Suicidal Ideations Vital Signs Height 5 ft 2 in Weight: 156 lb 6.4 oz Weight in Pounds 156.4 lbs Pulse Ox 97 - Physical Exam General: Alert, Oriented x3, No apparent distress HEENT: Atraumatic, PERRLA, EOMI, Normocephalic Oropharynx:: Negative for: Dry mucosa, Ulcerated lesions Neck:: Supple, Trachea midline. Negative for: JVD, bilateral Cardiac:: Regular rate, Regular rhythm, Normal S1, Normal S2. Negative for: Murmur Lungs: Clear to auscultation, Excusion symmetrical. Negative for: Rhonchi, Wheezes Abdomen:: Bowel sounds x 4, Soft, Non-tender, Non-distended. Negative for: Hepatosplenomegaly Extremities:: Negative for: Cyanosis, Edema Neurological: Neuro grossly intact Skin:: - - Port right upper chest access with gripper covered with DSD. Negative for: Lesions, Rash, Petechiae, Ecchymosis Psychiatric:: Appropriate affect, Euthymic Lymphatics:: Negative for: Cervical lymphadenopathy, Supraclavicular lymphadenopathy, Axillary lymphadenopathy Laboratory Data: Laboratory Tests WBC 10.7 (4.4-11.0) K/mm3 RBC 3.48 L (4.2-5.4) M/mm3 Diagnostic Data: Diagnostic Data PET, CT Tumor Imaging 03/10/18 09:33 IMPRESSION: 1. ABNORMAL EXAMINATION INDICATIVE OF MALIGNANT VIABLE NEOPLASM. 2. Increased glucose concentration noted in the bilateral axillary and supraclavicular, right-left anterior and lateral neck structures fulfills quantitative criteria for viable neoplasm. 3. Neoplastic transformation is noted in the mediastinal structures. (Ayaan, Journal of Clinical Oncology 16:2142, 1998). 4. [...] or disruption of lymphatic drainage by lymphoma. Began R CHOP 03/24/2018. Received cycle 2 04/17/2018. Tolerated well. Exertional dyspnea resolved, lower extremity edema vastly improved. CBC reviewed shows white blood cell count 10.7, hemoglobin 10.3, platelets 158,000. Prednisone refilled. Stressed the importance of taking 100 mg daily on days 1-5 of chemotherapy regimen (with cycle 3 starting 05/08/18). Plan restaging studies subsequent to cycle 3. 2. Left breast nodule on CT but not on mammography or ultrasound and mammographic abnormalities noted more likely related to impairment of lymph drainage from the breast due to lymphomatous involvement of axillary nodes (discussed with Dr. Martin). Patient was in agreement with aforementioned plan. RTC on 05/08/17 for consideration of cycle 3 R CHOP, sooner if issues arise. Mer Bain, MSN, CLINIC LEAD-C, AOCNP Medications: Prescriptions This Visit Medication Instructions Recorded Multivitamin [Multiple Vitamins] 1 tab PO DAILY 02/25/18 Primary Care Provider: Catina Tanner MD Referring Provider: - Problem List (1) Follicular lymphoma grade III Status: Chronic Qualifiers: Lymphoma site: axillary Qualified Code(s): C82.24 - Follicular lymphoma grade III, unspecified, lymph nodes of axilla and upper limb (2) Edema Status: Acute Qualifiers: Edema type: generalized Qualified Code(s): R60.1 - Generalized edema 04/28/18 1111 <Electronically signed by Mer KELLY> Date Mer CHARLESC Cosigner Signature: Date (if applicable) CC: CBC W/DIFF, AUTOMATED Collected: 04/28/2018 Status: F Source: [place] 9:43 AM [facility] REPOSITORY Order Comment: Reason for Laboratory Test . TYPE CODE TESTS RESULT OUT OF RANGE REFERENCE UNITS LAB L100.1000 4.4-11.0 K/mm3 Normal WBC 10.7 LAB L100.1200 4.2-5.4 M/mm3 Low RBC 3.48 LAB L100.1300 12.0-15.0 g/dl Low HGB 10.3 LAB L100.1400 37-47 % Low HCT 31.8 LAB L100.1500 81-99 fL Normal MCV 91.4 LAB L100.1600 27.0-32.0 pg Normal MCH 29.6 LAB L100.1700 32-36 g/gl Normal MCHC 32.4 LAB L100.1810 11.6-14.6 % High RDW CV 15.1 LAB L100.1820 35.1-43.9 fl High RDW SD 48.4 LAB L100.1900 150-450 K/mm3 Normal PLT 158 LAB L100.2000 6.2-12.0 fl Normal MPV 11.6 LAB L100.2100 47-70 % High NEUT% 71.7 LAB L100.2200 19-41 % Low LY% 12.6 LAB L100.2300 0-10 % High MONO% 13.3 LAB L100.2400 0-5 % Normal EO% 1.0 LAB L100.2500 0-1 % Normal BASO% 0.7 LAB L100.2550 0.0-0.9 % Normal IM GRAN % 0.700 Result Comment: IG% - Immature Granulocytes (promyelocytes, myelocytes and metamyelocytes) > 1% indicates that a LEFT SHIFT is Present. LAB L100.2620 2.0-7.7 X10 3/uL Normal Absolute Neut 7.7 LAB L100.2720 0.83-4.51 X10 3/ul Normal Absolute Lymph 1.34 Performed By: #### L100.0100 #### [facility] [address] [place], [address] ONCOLOGY VISIT REPORT Observed: 04/17/2018 Status: F Source: [place] 9:06 AM [facility] REPOSITORY [facility] [address] [place] [address] OFFICE VISIT Date of Service: 04/17/18 0842 MR#: [id number] Acct: [id number] Name: CORI CORRIGAN Rep #: [id number] : 1955 From: Sam Aiken MD Age/Sex: 62/F Location: OMD Status: Signed - Problem List (1) Follicular lymphoma grade III Status: Chronic Qualifiers: Lymphoma site: axillary Qualified Code(s): C82.24 - Follicular lymphoma grade III, unspecified, lymph nodes of axilla and upper limb (2) Breast nodule Status: Suspected - Date of Service Date of Service:: 04/17/18 - Chief Complaint Lymphoma on treatment - [...] CD138 (B-A38) negative BCL-2 (bcl-2/100/D5) positive BCL-6 (SZ462J/A8) positive Cyclin D1/BCL-1 (SP4) negative Brethren (polyclonal) negative Lambda (polyclonal) negative MUM1 (MRQ-43) [...] day smoker Review of Systems Constitutional:: Reports: Weakness - Overall I feel a bit better, Fatigue, Weight loss - Mainly loss of edema fluid, Appetite change, - - Nosebleed last week of March, packing applied, due to come off April 18. Denies: Fever, Sweats, Chills Cardiovascular:: Reports: Dyspnea on exertion, Peripheral edema - Largely resolved. Denies: Chest pain, Palpitations, Orthopnea, PND, Shortness [...] Anxiety, Depression, Homicidal Ideations, Suicidal Ideations Comment: Enlarged lymph nodes seem to be decreasing in size Vital Signs Height 5 ft 2 in Weight: 70.67 kg Weight in Pounds 155.8 lbs Pulse Ox 97 - Physical Exam General: Alert, Oriented x3, No apparent distress, - - ECOG 1-2 HEENT: Atraumatic, PERRLA, EOMI, Normocephalic, - - Right nasal pack Oropharynx:: Dry mucosa Neck:: Supple, Trachea midline, - - Port okay. Negative for: JVD, bilateral Cardiac:: Regular rate, Regular rhythm, Normal S1, Normal S2. Negative for: Murmur Lungs: Clear to auscultation, Diminished - At the basis, small residual left pleural effusion, Excusion symmetrical. Negative for: Rhonchi, Wheezes Abdomen:: Soft, Non-tender, Non-distended. Negative for: Hepatosplenomegaly Extremities:: Negative for: Cyanosis, Edema Neurological: Neuro grossly intact Skin:: Negative for: Lesions, Rash, Petechiae, Ecchymosis Psychiatric:: Appropriate affect, Euthymic Lymphatics:: Negative for: Cervical lymphadenopathy, Supraclavicular lymphadenopathy, Axillary lymphadenopathy Laboratory Data: Reviewed in EMR Diagnostic Data: Diagnostic Data PET, CT Tumor Imaging 03/10/18 09:33 IMPRESSION: 1. ABNORMAL EXAMINATION INDICATIVE OF MALIGNANT VIABLE NEOPLASM. 2. Increased glucose concentration noted in the bilateral axillary and supraclavicular, right-left anterior and lateral neck structures fulfills quantitative criteria for viable neoplasm. 3. Neoplastic transformation is noted in the mediastinal structures. (Ayaan, Journal of Clinical Oncology 16:2142, 1998). 4. [...] diagnostic and therapeutic thoracocentesis with negative cytology March. Started R CHOP March 24, 2018, tolerated without excessive toxicities and there is clinical evidence for response evidenced by decreasing peripheral adenopathy. 2. Left breast nodule on CT but not on mammography or ultrasound and mammographic abnormalities noted more likely related to impairment of lymph drainage from the breast due to lymphomatous involvement of axillary nodes (discussed with Dr. Martin). 3. Hepatitis B and C serologies are negative. 4. She had a mild hypercalcemia probably secondary to her lymphoma. 5. Pretreatment cardiac ejection fraction satisfactory (60% by echo) Of note patient has a family history of breast and ovarian cancer (mother) and lymphoma (brother just recently diagnosed with lymphoma and has not started therapy yet) Plan: 1. Systemic chemotherapy with R CHOP support with Neulasta start cycle 2/. Patient was seen was her , impression and plan discussed. Medications: Prescriptions This Visit Medication Instructions Recorded Multivitamin [Multiple Vitamins] 1 tab PO DAILY 02/25/18 Ondansetron [Zofran] 8 mg PO Q8H PRN 10 Days #30 tab 03/24/18 Medications Added to Medication List This Visit 0.9% Normal Saline Med 04/17/18 00:00 Active 250 ml IV UD PRN 0.9% Saline Lock Med 04/17/18 00:00 Active Primary Care Provider: Catina Tanner MD Referring Provider: 04/17/18905 <Electronically signed by Sam Aiken MD> Date Sam Aiken MD Cosigner Signature: Date (if applicable) CC: CBC W/DIFF, AUTOMATED Collected: 04/17/2018 Status: F Source: [place] 7:57 AM [facility] REPOSITORY TYPE CODE TESTS RESULT OUT OF RANGE REFERENCE UNITS LAB L100.1000 4.4-11.0 K/mm3 Normal WBC 10.9 LAB L100.1200 4.2-5.4 M/mm3 Low RBC 3.83 LAB L100.1300 12.0-15.0 g/dl Low HGB 11.4 LAB L100.1400 37-47 % Low HCT 34.6 LAB L100.1500 81-99 fL Normal MCV 90.3 LAB L100.1600 27.0-32.0 pg Normal MCH 29.8 LAB L100.1700 32-36 g/gl Normal MCHC 32.9 LAB L100.1810 11.6-14.6 % High RDW CV 15.5 LAB L100.1820 35.1-43.9 fl High RDW SD 50.8 LAB L100.1900 150-450 K/mm3 Normal PLT 439 LAB L100.2000 6.2-12.0 fl Normal MPV 11.7 LAB L100.2100 47-70 % High NEUT% 74.4 LAB L100.2200 19-41 % Low LY% 9.1 LAB L100.2300 0-10 % High MONO% 15.4 LAB L100.2400 0-5 % Normal EO% 0.4 LAB L100.2500 0-1 % Normal BASO% 0.5 LAB L100.2550 0.0-0.9 % Normal IM GRAN % 0.200 Result Comment: IG% - Immature Granulocytes (promyelocytes, myelocytes and metamyelocytes) > 1% indicates that a LEFT SHIFT is Present. LAB L100.2620 2.0-7.7 X10 3/uL High Absolute Neut 8.1 LAB L100.2720 0.83-4.51 X10 3/ul Normal Absolute Lymph 0.99 Performed By: #### L100.0100 #### [facility] [address] [place], [place], [id number] COMPREHENSIVE METABOLIC Collected: 04/17/2018 Status: F Source: [facility] 7:57 AM [facility] REPOSITORY TYPE CODE TESTS RESULT OUT OF RANGE REFERENCE UNITS LAB L501.0100 74-106 mg/dL Normal GLU 96 Result Comment: Please note revised GLUCOSE reference range effective 2017. LAB L501.1000 7-18 mg/dL Normal BUN 11 LAB L501.1100 0.55-1.02 mg/dL Normal CREAT,SERUM 0.60 Result Comment: The validity of the calculated GFR AND GFRAA in patients over 70 years has not been determined. Clinical correlation is essential. LAB L501.1110 >60 mL/min Normal EST GFR 107 Result Comment: Non- GFR Calc LAB L501.1115 >60 mL/min Normal EST GFR - AA 130 Result Comment: GFR Calc LAB L501.1255 ml/min Normal Estimated CRCL 74.92 LAB L501.1300 10-20 RATIO Normal BUN/CRE 18.4 LAB L501.1500 6.4-8. g/dL Normal 2 T PROT 6.9 LAB L501.1800 3.2-5. g/dL Normal 0 ALB 3.3 LAB L501.1950 2.2-4. g/dL Normal 2 GLOB 3.6 LAB L501.2000 0.9-2. RATIO Normal 4 A/G 0.9 LAB L501.2200 8.5-10 mg/dL Normal .1 CA 9.8 LAB L501.4100 15-37 U/L Low AST 14 LAB L501.4305 45-117 U/L Normal ALK P 106 LAB L501.4405 13-56 U/L Normal ALT 18 LAB L501.4600 0.20-1 mg/dL Normal .00 T BILI 0.40 LAB L501.5300 136-14 mmol/L Normal 5 NA 138 LAB L501.5600 3.5-5. mmol/L Normal 1 K 4.0 LAB L501.5900 98-107 mmol/L Normal CL 103 LAB L501.6100 21.0-3 mmol/L Normal 2.0 CO2 27.0 LAB L501.6200 5-15 Normal GAP 8 Performed By: #### L500.4050, L501.1400, L504.2610 #### [facility] [address] [place], [place], [id number] URIC ACID Collected: 04/17/2018 Status: F Source: [place] 7:57 AM [facility] REPOSITORY TYPE CODE TESTS RESULT OUT OF RANGE REFERENCE UNITS LAB L501.1400 2.6-6.0 mg/dL Normal URIC 4.0 Result Comment: The drugs N-Acetylcysteine and Metamizole may falsely depress this assay. Performed By: #### L500.4050, L501.1400, L504.2610 #### [facility] [address] [place], [place], [id number] LDH Collected: 04/17/2018 Status: F Source: [place] 7:57 AM [facility] REPOSITORY TYPE CODE TESTS RESULT OUT OF RANGE REFERENCE UNITS LAB L504.2610 84-246 U/L Normal LDH 154 Performed By: #### L500.4050, L501.1400, L504.2610 #### [facility] [address] [place], [address] EMERGENCY DEPARTMENT Observed: 04/14/2018 Status: F Source: [place] SUMMARY 12:13 AM [facility] REPOSITORY [facility] Medical Records Department [address] [place] [address] Emergency Department Summary 04/14/18 0009 MR#: [id number] Acct: [id number] Name: CORI CORRIGAN Rep #: [id number] : 1955 62 From: Killian Lacy MD PCP: Catina Tanner MD Status: REG ER - ER Visit Summary Date of Service: 04/14/18 Chief Complaint: Bleeding from right naris History of Present Illness: The patient is a 62 F history of follicular lymphoma grade 3 presents with spontaneous epistaxis right after sneezing and blowing her nose. She has history of thrombocytopenia. She recently received chemotherapy. She denies fever, chills night sweats. Denies facial pain. She states she had blood coming anteriorly and posteriorly. She denied any respiratory symptoms. She denies GI symptoms. She denies allergies to antibiotics. Physical Examination: Thin 62-year-old woman who appears in no distress. Blood noted right vestibule. Vital signs are unremarkable. Blood pressure is slightly elevated 123/68. She is not hypoxic nor is she febrile. She appears slightly pale. Posterior pharynx mild blood posterior pharynx. Uvula midline. Trachea midline. No stridor. Lungs are clear. Heart is regular. No petechia purpura noted. No bruising noted. Test Results: White count slightly elevated with an H AND H 7.7 and 36.0. Platelet counts 476. Emergency Department Course and Treatment: Pressure was applied to the nose. When pressure was removed she began to bleed again. CBC was obtained because of history of cancer with recent chemotherapy to assess H AND H as well as platelet count. Treatment Plan: Right naris was anesthetized using [place] solution. A 7.5 cm posterior Rhino Rocket was placed since blood was noted above the inferior turbinate. There is no active bleeding or evidence of recent bleeding over Calci-Mix plexus. Disposition: Patient was ambulated. There is no further bleeding. Impression: Epistaxis right This note was generated with Dragon dictation software. It may contain incorrect words, spelling, and punctuation that were not noted in review of the chart prior to signing ED Disposition - Plan for ED Patient: Disposition: Home or Assisted Living Chief Complaint: Nosebleed Instructions: Nosebleed Prescriptions: Amoxicillin [Amoxil] 500 mg PO Q8H #14 cap Referrals: Catina Tanner MD [Primary Care Provider] - Carlos Villalobos MD [STAFF PHYSICIAN] - 04/18/18 Additional Instructions: Take the amoxicillin until gone. Call Dr. Addison iVllalobos's office in the morning to be seen on Saturday. What to do if you have Problems For any increased pain, shortness of breath, bleeding, nausea or vomiting, chest pain, or any unexpected problems, contact your Primary Care Provider. Call [facility] ([phone]) or report to the closest Emergency Room. Call 911 if necessary. 04/14/18 0013 <Electronically signed by Killian Lacy MD> Date Killian Lacy MD Cosigner Signature (If Indicated): Date CC: Catina Tanner MD CBC W/DIFF, AUTOMATED Collected: 04/13/2018 Status: F Source: [place] 8:20 PM [facility] REPOSITORY TYPE CODE TESTS RESULT OUT OF RANGE REFERENCE UNITS LAB L100.1000 4.4-11.0 K/mm3 High WBC 12.0 LAB L100.1200 4.2-5.4 M/mm3 Low RBC 3.96 LAB L100.1300 12.0-15.0 g/dl Low HGB 11.7 LAB L100.1400 37-47 % Low HCT 36.0 LAB L100.1500 81-99 fL Normal MCV 90.9 LAB L100.1600 27.0-32.0 pg Normal MCH 29.5 LAB L100.1700 32-36 g/gl Normal MCHC 32.5 LAB L100.1810 11.6-14.6 % High RDW CV 15.6 LAB L100.1820 35.1-43.9 fl High RDW SD 51.3 LAB L100.1900 150-450 K/mm3 High PLT 476 LAB L100.2000 6.2-12.0 fl Normal MPV 11.5 LAB L100.2100 47-70 % High NEUT% 78.1 LAB L100.2200 19-41 % Low LY% 11.8 LAB L100.2300 0-10 % Normal MONO% 8.8 LAB L100.2400 0-5 % Normal EO% 0.7 LAB L100.2500 0-1 % Normal BASO% 0.4 LAB L100.2550 0.0-0.9 % Normal IM GRAN % 0.200 Result Comment: IG% - Immature Granulocytes (promyelocytes, myelocytes and metamyelocytes) > 1% indicates that a LEFT SHIFT is Present. LAB L100.2620 2.0-7.7 X10 3/uL High Absolute Neut 9.4 LAB L100.2720 0.83-4.51 X10 3/ul Normal Absolute Lymph 1.42 LAB L100.4500 Normal SMEAR COMMENT SCANNED Performed By: #### L100.0100 #### [facility] [address] [facility]. [place], [place], [address] CARDIOLOGY VISIT Observed: 04/04/2018 Status: F Source: [place] REPORT 12:57 PM [facility] REPOSITORY [facility] [address] [place] [address] OFFICE VISIT Date of Service: 04/04/18 MR#: [id number] Acct: [id number] Name: CORI CORRIGAN Rep #: [id number] : 1955 Provider: Matias Tapia MD Age/Sex: 62/F Location: [facility] Status: Signed HPI HPI Chief Complaint: Follow-up visit Details: CORI CORRIGAN is a 62 F who presents to the office today for a follow-up visit. She is a lady with a history of recently diagnosed follicular lymphoma, hypertension, who had previously had an echocardiogram with demonstrated ejection fraction of 65%. She presented to the emergency room in March 2018 was noted to be short of breath she had a large left pleural effusion and a small pericardial effusion. She did have mildly increased troponin enzymes. She was scheduled to have her chemotherapy. A repeat echocardiogram had demonstrated a mild decline in her left ventricular ejection fraction estimated to be 50%. She has had no dizziness or diaphoresis no near syncope or syncope. Since discharge she is been doing fairly well and is following up here. She tells me that her Lasix was discontinued by the oncology service. Intake Vital Signs04/04/18 Height 5 ft 2 in Intake Visit Reasons: DC PCU 12-6 NSTEMI Allergies No Known Allergies Allergy (Verified 04/04/18 10:23) Medications aspirin 81 mg tablet,delayed release 81 mg PO DAILY 02/10/18 [History Confirmed 04/04/18] omega-3 fatty acids 1,000 mg capsule 1,000 mg PO DAILY 02/10/18 [History Confirmed 04/04/18] Multivitamin [Multiple Vitamins] 1 tab PO DAILY 02/25/18 [History Confirmed 04/04/18] Hydrocodone/Acetaminophen [[place] 5-325 Tablet] 1 tab PO PRN PRN 03/17/18 [History Confirmed 04/04/18] Atorvastatin Calcium [Lipitor] 40 mg PO QHS #30 tab 03/20/18 [Rx Confirmed 04/04/18] Metoprolol(XL)Succ [Toprol Xl (Beta Alia)] 25 mg PO DAILY #30 tab 03/20/18 [Rx Confirmed 04/04/18] Ondansetron [Zofran] 8 mg PO Q8H PRN 10 Days #30 tab 03/24/18 [Rx Confirmed 04/04/18] prednisone 20 mg tablet 100 mg PO DAILY PRN tab 04/04/18 [History] [facility] Medical History Acute diastolic (congestive) heart failure (Acute) Bilateral pleural effusion (Acute) Non-ST elevation (NSTEMI) myocardial infarction (Chronic 03/18/18) Follicular lymphoma grade III (Chronic) SOB (shortness of breath) (Acute) Constipation (Acute) Lymphadenopathy (Acute) Surgical History Hx of lymph node biopsy (Acute 02/2018) No history of previous surgery (Acute) Family History Father Diabetes Arthritis Heart disease Kidney disease Stomach ulcer Hypertension Sister Diabetes Arthritis Heart disease Hypertension Thyroid disorder Mother Breast cancer Cancer ovarian Brother Diabetes Kidney disease Hypertension Lymphoma Social History Smoking Status: Former smoker alcohol intake: never substance use type: does not use ROS Const Const: Positive for other (Chemo scheduled for April); negative for fatigue, weakness, difficulty sleeping, frequent falls, excessive sweating or headache(s) Eyes Eyes: Negative for loss of peripheral vision, transient loss of vision, blurry vision, tunnel vision or double vision ENT ENT: Negative for headache(s), dizziness, Nosebleed/epistaxis or balance problems Cardio Chest Pain: No Palpitations: No Edema: Bilateral (Left >Right patient admit that swelling has improved) Muscle aches with walking: None Resp Respiratory: Negative for SOB with activity, SOB at rest, SOB orthopnea\SOB lying down, paroxysmal nocturnal dyspnea or Cough GI GI: Negative nausea, heartburn, black,tarry stools or vomiting : Negative for hematuria Musc Musc: Negative for balance problems, muscle aches/ myalgia, muscle weakness or joint pain Skin Skin: Negative non-healing lesions, unusual bruising or rash Neuro Neuro: Negative for weakness, frequent falls, headache(s), blurry vision, double vision, dizziness, lightheadedness, orthostatic symptoms, near syncope, syncope or lack of coordination Rodger Hematologic/Lymphatic: Negative for easy bruising or easy bleeding Endo Endo: Negative for fatigue, excessive sweating or increased thirst/drinking Psych Psych: Negative for anxiety or depression Allergy Allergy/Immunology: Negative for hives, Negative for rash Cardiology Exam Const Appearance: cooperative, healthy appearing, well developed, well groomed and no acute distress Nutritional Appearance: well nourished and average body habitus Orientation: alert, awake and oriented x3 Head Head: normal to inspection, normocephalic and atraumatic Ears: hearing grossly normal bilaterally and external ears normal Nose: external nose normal, nasal mucous membranes and turbinates normal, nares normal, septum normal, no nasal discharge Face and Sinus: face symmetric Mouth: oral mucosae normal, tongue normal, oropharynx normal and moist mucous membranes Teeth and gingiva: dentition normal Throat: posterior oropharynx normal, tonsils normal and uvula midline Eyes General: appearance normal, both eyes and all related structures Eyelids: eyelids normal Conjunctivae: conjunctivae normal Pupils: PERRL, normal by confrontation and accommodation normal EOM: EOM intact bilaterally Neck Neck: normal visual inspection, trachea midline and no JVD JVD: +5 Carotids: normal carotid upstroke and bounding pulses Chest Chest inspection: normal inspection of the chest, symmetric chest movement and normal respiratory effort Auscultation: Bilateral: Clear to Auscultation Cardio Palpation: normal PMI Rate: regular rate Rhythm: regular rhythm Heart sounds: S1 normal, S2 normal and normal, physiologic split S2; negative rub, gallop or murmur GI GI: normal to inspection, soft, no hepatosplenomegaly and bowel sounds present Neuro General: alert, awake, oriented x3, no focal sensory deficit, gait normal and moves all extremities Skin Skin: no rashes or lesions noted Extremities Pulses: Normal: Right Femoral Pulse, Left Femoral Pulse, Right Dorsalis Pedis Pulse, Left Dorsalis Pedis Pulse, Right Posterior Tibial Pulse, Left Posterior Tibial Pulse, Right Radial Pulse, Left Radial Pulse Lower Extremity Edema: None: Bilateral Musculoskel Musculoskeletal: No joint tenderness Psych Psychological: normal affect Assessment AND Plan 1. Acute diastolic (congestive) heart failure I50.31 Plan She does have a history of acute diastolic heart failure which I think was secondary to her chemotherapy. There has also been some decline in her ejection fraction. Her global longitudinal score was calculated at 13.7. At this time my recommendation is to continue to follow her clinically as per the oncology service. 2. Non-ST elevation (NSTEMI) myocardial infarction I21.4 Plan She did have a recent non-ST elevation myocardial infarction which I suspect was secondary to demand ischemia. The global nature of her left ventricular systolic dysfunction appears to support this. My recommendation is to continue observation with no plans for cardiac catheterization. She will remain on the beta-alia aspirin and high intensity statin. Thank you for allowing me to participate in the care of your patient. Please don't hesitate to call if any issues arise Plan Detail Follow Up 4 Months (mmm) Coding Level of Care Code Off vis,est,level 4 Diagnoses Acute diastolic (congestive) heart failure I50.31 Non-ST elevation (NSTEMI) myocardial infarction I21.4 Coding Level of Care Code Off vis,est,level 4 Diagnoses Acute diastolic (congestive) heart failure I50.31 Non-ST elevation (NSTEMI) myocardial infarction I21.4 04/04/18 1257 <Electronically signed by Matias Tapia MD> Date Matias Tapia MD Cosigner Signature: Date (if applicable) CC: Catina Tanner MD CHEST INSP/EXP 2 VIEW Observed: 04/03/2018 Status: F Source: [place] 2:57 PM [facility] REPOSITORY [facility] Imaging Services [address] [place] [address] Chest Insp/Exp 2 View MR#: [id number] Acct: [id number] Name: CORI CORRIGAN Rep #: [id number] : 1955 F 62 From: Denny Juarez MD PCP: Catina Tanner MD Status: REG CLI Study: Chest Insp/Exp 2 View Date of Exam: 04/03/18 Exam# [id number] Ordering Dr: Denny Juarez MD STUDY: X-RAY CHEST REASON FOR EXAM: Female, 62 years old. Status post left thoracentesis. TECHNIQUE: AP inspiration and expiration views. COMPARISON: Comparison is made with prior study dated April 02, 2018. FINDINGS: The patient is status post left thoracentesis. There is no evidence of pneumothorax. Small residual left pleural effusion with underlying atelectasis. RAD/Chest Insp/Exp 2 View IMPRESSION: Status post left thoracentesis. There is no evidence pneumothorax. Residual pleural parenchymal changes at the left lung base. Electronically Signed: Denny Juarez MD at 15:06 EST Tel [phone], Service support , CC: Denny Juarez MD; Catina Tanner MD Spiritual Advisor: Signed THORACENTESIS W US Observed: 04/03/2018 Status: F Source: [place] 2:17 PM [facility] REPOSITORY [facility] Imaging Services [address] [place] [address] Thoracentesis W US MR#: [id number] Acct: [id number] Name: CORI CORRIGAN Rep #: [id number] : 1955 F 62 From: Denny Juarez MD PCP: Catina Tanner MD Status: REG CLI Study: Thoracentesis W US Date of Exam: 04/03/18 Exam# [id number] Ordering Dr: Mer Bain SCIENCE AND OPERATIONS OFFICERMarcio PROCEDURE: ULTRASOUND GUIDED THORACENTESIS. DATE: April 03, 2018. INDICATION: Female, 62 years old. Left pleural effusion PHYSICIAN: Denny Juarez M.D. PROCEDURE: The risks, [...] local anesthesia. Under ultrasound guidance, a 5 Egyptian thoracentesis needle/catheter system was advanced into the left posterior lower pleural fluid collection. Approximately 1850 mL of mary-colored fluid was drained. The catheter was removed, and a sterile dressing was applied. The patient tolerated the procedure well. A chest x-ray was ordered. US/Thoracentesis W US IMPRESSION: Ultrasound-guided left thoracentesis. Electronically Signed: Denny Juarez MD at 16:00 EST Tel [phone], Service support , CC: Catina Tanner MD; Mer Bain NP Spiritual Advisor: Signed CBC W/DIFF, AUTOMATED Collected: 04/03/2018 Status: F Source: [place] 2:01 PM [facility] REPOSITORY Order Comment: Reason for Laboratory Test . TYPE CODE TESTS RESULT OUT OF RANGE REFERENCE UNITS LAB L100.1000 4.4-11.0 K/mm3 Normal WBC 10.0 LAB L100.1200 4.2-5.4 M/mm3 Low RBC 3.78 LAB L100.1300 12.0-15.0 g/dl Low HGB 11.3 LAB L100.1400 37-47 % Low HCT 33.8 LAB L100.1500 81-99 fL Normal MCV 89.4 LAB L100.1600 27.0-32.0 pg Normal MCH 29.9 LAB L100.1700 32-36 g/gl Normal MCHC 33.4 LAB L100.1810 11.6-14.6 % High RDW CV 14.9 LAB L100.1820 35.1-43.9 fl High RDW SD 48.1 LAB L100.1900 150-450 K/mm3 Normal PLT 181 LAB L100.2000 6.2-12.0 fl Normal MPV 11.4 LAB L100.2100 47-70 % Normal NEUT% 67.2 LAB L100.2200 19-41 % Low LY% 12.6 LAB L100.2300 0-10 % High MONO% 17.5 LAB L100.2400 0-5 % Normal EO% 1.2 LAB L100.2500 0-1 % Normal BASO% 0.5 LAB L100.2550 0.0-0.9 % High IM GRAN % 1.000 Result Comment: IG% - Immature Granulocytes (promyelocytes, myelocytes and metamyelocytes) > 1% indicates that a LEFT SHIFT is Present. LAB L100.2620 2.0-7.7 X10 3/uL Normal Absolute Neut 6.7 LAB L100.2720 0.83-4.51 X10 3/ul Normal Absolute Lymph 1.26 Performed By: #### L100.0100 #### [facility] [address] [place], [address] PROTHROMBIN TIME W/INR Collected: 04/03/2018 Status: F Source: [place] 2:01 PM [facility] REPOSITORY Order Comment: Reason for Laboratory Test . TYPE CODE TESTS RESULT OUT OF RANGE REFERENCE UNITS LAB L300.4150 11.7-14.9 SECONDS Normal PROTIME 13.4 LAB L300.4200 Normal INR 1.0 Performed By: #### L300.3900, L300.4310 #### [facility] [address] [place], [address] PARTIAL THROMBOPLAST Collected: 04/03/2018 Status: F Source: [place] TIME 2:01 PM [facility] REPOSITORY Order Comment: Reason for Laboratory Test . TYPE CODE TESTS RESULT OUT OF RANGE REFERENCE UNITS LAB L300.4310 24.1-36.2 Seconds Normal PTT 31.0 Performed By: #### L300.3900, L300.4310 #### [facility] [address] [place], [address] ONCOLOGY VISIT REPORT Observed: 04/02/2018 Status: F Source: [place] 2:33 PM [facility] REPOSITORY [facility] [address] [place] [address] OFFICE VISIT Date of Service: 04/02/18 0903 MR#: [id number] Acct: [id number] Name: CORI CORRIGAN Rep #: [id number] : 1955 From: Mer KELLY Age/Sex: 62/F Location: OMD Status: Signed Subjective - Date of Service Date of Service:: 04/02/18 - Chief Complaint Cycle 1 RCHOP Tox check - History of Present Illness Patient is [...] CD138 (B-A38) negative BCL-2 (bcl-2/100/D5) positive BCL-6 ([id number]/A8) positive Cyclin D1/BCL-1 (SP4) negative Brethren (polyclonal) negative Lambda (polyclonal) negative MUM1 (MRQ-43) [...] structures. (Ayaan, Journal of Clinical Oncology 16:2142, 1998). 4. [...] CHOP March 24, 2018- - Interval History The patient is presenting to clinic today accompanied by for symptom check. Patient received cycle 1R CHOP on 04/24/2017. Experienced increased lower extremity swelling subsequent to IV hydration. Describes as improved somewhat. Taking Lasix 40 mg daily. Concerns today include re occurence of exertional dyspnea. States subsequent to thoracentesis on dyspnea resolved. More noticeable each day, occurs with ADLS such as showers. Nausea mild, intermittent only required 2 doses of prn antiemetic, did not result in any episode of emesis. Constipation on days 2-3 subsequent to infusion, took stool softener and resolved. Lower quad abd cramping, relieved after passing gas. Fatigue mild to moderate. Appetite good, PO fluid intake likely adequate. Specifically denies fever/chills, headache, CP, palpitations, cough, numbness/tingling and any episodes of overt bleeding/abnormal bruising. Tolerated Neulasta, lower extremity aching lasted approx 2 days. - Past Medical/Social History Past Medical History Cancer: Lymphoma Social History Social History: No changes Smoking Status Current every day smoker Review of Systems Constitutional:: Reports: Weakness, Fatigue, Appetite change. Denies: Fever, Sweats, Weight loss, Chills Cardiovascular:: Reports: Dyspnea on exertion. Denies: Chest pain, Palpitations, Orthopnea, PND, Shortness of breath Respiratory: Denies: Cough, Hemoptysis, Wheezing Gastrointestinal:: Reports: Constipation - see HPI. Denies: Abdominal pain, Nausea, Vomiting, Diarrhea, Hematochezia Genitourinary: Reports: Polyuria - r/t Lasix early in the day. Denies: Dysuria, Hematuria, Flank pain Musculoskeletal:: Denies: Back pain, Myalgia, Arthralgia Skin: Denies: Rash, Skin Changes, Wounds Neurological:: Denies: Headache, Dizziness, Numbness, Tingling, Visual changes, Tinnitus, Hearing loss Psychiatric: Denies: Anxiety, Depression, Homicidal Ideations, Suicidal Ideations Vital Signs Height 5 ft 2 in Weight: 179 lb 9.6 oz Weight in Pounds 179.6 lbs Pulse Ox 93 - Physical Exam General: Alert, Oriented x3, No apparent distress HEENT: Atraumatic, PERRLA, EOMI, Normocephalic, - - wears glasses Oropharynx:: Negative for: Dry mucosa, Ulcerated lesions Neck:: Supple, Trachea midline. Negative for: JVD, bilateral Cardiac:: Regular rate, Regular rhythm, Normal S1, Normal S2. Negative for: Murmur Lungs: Diminished - in the bases bilat, but entirely left pritchard, Shortness of breath, Tachypneic, Excusion symmetrical. Negative for: Rhonchi, Wheezes Abdomen:: Bowel sounds x 4, Soft, Non-tender, Non-distended. Negative for: Hepatosplenomegaly Extremities:: Edema - BLE, NON PITTING LEFT > RIGHT. Negative for: Cyanosis Neurological: Neuro grossly intact Skin:: - - Port right upper chest accessed with gripper covered with DSD. Negative for: Lesions, Rash, Petechiae, Ecchymosis Psychiatric:: Appropriate affect, Euthymic Lymphatics:: Negative for: Cervical lymphadenopathy, Supraclavicular lymphadenopathy, Axillary lymphadenopathy Laboratory Data: Laboratory Tests WBC 4.7 (4.4-11.0) K/mm3 RBC 3.74 L (4.2-5.4) M/mm3 Diagnostic Data: Diagnostic Data PET, CT Tumor [...] or disruption of lymphatic drainage by lymphoma. Began R CHOP 03/24/2018. Tolerated well. C/o exertional dyspnea (discussed below) Lasix discontinued- generalized edema is a result of lymphatic obstruction. Prednisone refilled. Stressed the importance of taking 100 mg daily on days 1-5 of chemotherapy regimen (starting 04/16/18). 2. Left breast nodule on CT but not on mammography or ultrasound and mammographic abnormalities noted more likely related to impairment of lymph drainage from the breast due to lymphomatous involvement of axillary nodes (discussed with Dr. Martin). 3. Exertional dyspnea- Sent for CXR. Imaging shows large left pleural effusion. Orders provided for therapeutic thoracentesis. Platelets 162,000, ANC 2.1 today. Already administered 81 mg ASA this morning- instructed not to take any ASA until after procedure. Repeat CBC the morning of thoracentesis. RTC on 04/16/17 for consideration of cycle 2 R CHOP, sooner if issues arise. 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 (2) Edema Status: Acute Qualifiers: Edema type: generalized Qualified Code(s): R60.1 - Generalized edema (3) Exertional dyspnea Status: Acute 04/02/18 1433 <Electronically signed by Mer KELLY> Date Mer KELLY Cosigner Signature: Date (if applicable) CC: CHEST PA AND LATERAL Observed: 04/02/2018 Status: F Source: [place] 10:34 AM [facility] REPOSITORY [facility] Imaging Services [address] [place] [address] Chest PA and Lateral MR#: [id number] Acct: [id number] Name: CORI CORRIGAN Rep #: [id number] : 1955 F 62 From: Josse Dunn MD PCP: Catina Tanner MD Status: REG CLI Study: Chest PA and Lateral Date of Exam: 04/02/18 Exam# [id number] Ordering Dr: Mer Bain STUDY: X-RAY CHEST REASON FOR EXAM: Female, 62 years old. Lymphoma. Dyspnea. TECHNIQUE: Frontal and lateral views of the chest. COMPARISON: 03/19/2018. FINDINGS: Mediport catheter terminates in the mid SVC. Small right pleural effusion with mild atelectasis. Moderate to large left pleural effusion with significant atelectasis or infiltrate in the lower left lung. Heart size cannot be assessed. Normal mediastinum and alex. Normal visualized pulmonary arteries. Normal visualized aortic arch and descending thoracic aorta. There are diffuse degenerative changes of the visualized thoracic spine. Normal visualized ribs, clavicles, and shoulders. There is no demonstrated abnormality of the visualized soft tissue structures of the upper abdomen. RAD/Chest PA and Lateral IMPRESSION: Bilateral pleural effusions especially on the left with probable prominent atelectasis or infiltrate in the lower left lung. Electronically Signed: Josse Dunn MD at 16:55 EST , Service support , CC: Catina Tanner MD; Mer Bain NP Spiritual Advisor: Signed CBC W/DIFF, AUTOMATED Collected: 04/02/2018 Status: C Source: [place] 8:15 AM [facility] REPOSITORY Order Comment: Reason for Laboratory Test . TYPE CODE TESTS RESULT OUT OF RANGE REFERENCE UNITS LAB L100.1000 4.4-11.0 K/mm3 Normal WBC 4.7 LAB L100.1200 4.2-5.4 M/mm3 Low RBC 3.74 LAB L100.1300 12.0-15.0 g/dl Low HGB 11.6 LAB L100.1400 37-47 % Low HCT 33.5 LAB L100.1500 81-99 fL Normal MCV 89.6 LAB L100.1600 27.0-32.0 pg Normal MCH 31.0 LAB L100.1700 32-36 g/gl Normal MCHC 34.6 LAB L100.1810 11.6-14.6 % Normal RDW CV 14.4 LAB L100.1820 35.1-43.9 fl High RDW SD 47.1 LAB L100.1900 150-450 K/mm3 Normal PLT 162 LAB L100.2000 6.2-12.0 fl Normal MPV 11.8 LAB L100.2100 47-70 % Low NEUT% 44.9 LAB L100.2200 19-41 % Normal LY% 24.3 LAB L100.2300 0-10 % High MONO% 25.3 LAB L100.2400 0-5 % Normal EO% 3.0 LAB L100.2500 0-1 % Normal BASO% 0.4 LAB L100.2550 0.0-0.9 % High IM GRAN % 2.100 Result Comment: IG% - Immature Granulocytes (promyelocytes, myelocytes and metamyelocytes) > 1% indicates that a LEFT SHIFT is Present. LAB L100.2620 2.0-7.7 X10 3/uL Normal Absolute Neut 2.1 LAB L100.2720 0.83-4.51 X10 3/ul Normal Absolute Lymph 1.15 LAB L100.4500 SMEAR Normal COMMENT Result Comment: SLIDE SCANNED - LEFT SHIFT, PATHOLOGY TO REVIEW. LAB L100.9900 Normal Reviewed PATH REV Result Comment: AMENDED REPORT 04/03/18 1054 PATH REV previously reported as: Chelsey green Performed By: #### L100.0100 #### [facility] [address] [place], [address] COMPREHENSIVE METABOLIC Collected: 04/02/2018 Status: F Source: [facility] 8:15 AM [facility] REPOSITORY Order Comment: Reason for Laboratory Test . Serial Specimen #1, #2 or #3? 1 TYPE CODE TESTS RESULT OUT OF RANGE REFERENCE UNITS LAB L501.0100 74-106 mg/dL Normal GLU 97 Result Comment: Please note revised GLUCOSE reference range effective 2017. LAB L501.1000 7-18 mg/dL Normal BUN 9 LAB L501.1100 0.55-1.02 mg/dL Low CREAT,SERUM 0.54 Result Comment: The validity of the calculated GFR AND GFRAA in patients over 70 years has not been determined. Clinical correlation is essential. LAB L501.1110 >60 mL/min Normal EST GFR 121 Result Comment: Non- GFR Calc LAB L501.1115 >60 mL/min Normal EST GFR - AA 147 Result Comment: GFR Calc LAB L501.1255 ml/min Normal Estimated CRCL 83.24 LAB L501.1300 10-20 RATIO Normal BUN/CRE 16.8 LAB L501.1500 6.4-8. g/dL Low 2 T PROT 6.2 LAB L501.1800 3.2-5. g/dL Normal 0 ALB 3.2 LAB L501.1950 2.2-4. g/dL Normal 2 GLOB 3.0 LAB L501.2000 0.9-2. RATIO Normal 4 A/G 1.1 LAB L501.2200 8.5-10 mg/dL Normal .1 CA 9.4 LAB L501.4100 15-37 U/L Normal AST 17 LAB L501.4305 45-117 U/L Normal ALK P 89 LAB L501.4405 13-56 U/L Normal ALT 17 LAB L501.4600 0.20-1 mg/dL Normal .00 T BILI 0.40 LAB L501.5300 136-14 mmol/L Low 5 NA 135 LAB L501.5600 3.5-5. mmol/L Normal 1 K 3.7 LAB L501.5900 98-107 mmol/L Normal CL 100 LAB L501.6100 21.0-3 mmol/L Normal 2.0 CO2 27.0 LAB L501.6200 5-15 Normal GAP 8 Performed By: #### L500.4050, L501.1400, L504.2610 #### [facility] [address] [facility] [place], [place], [address] URIC ACID Collected: 04/02/2018 Status: F Source: [place] 8:15 AM [facility] REPOSITORY Order Comment: Reason for Laboratory Test . Serial Specimen #1, #2 or #3? 1 TYPE CODE TESTS RESULT OUT OF RANGE REFERENCE UNITS LAB L501.1400 2.6-6.0 mg/dL Normal URIC 5.1 Result Comment: The drugs N-Acetylcysteine and Metamizole may falsely depress this assay. Performed By: #### L500.4050, L501.1400, L504.2610 #### [facility] [address] [place], [place], [address] LDH Collected: 04/02/2018 Status: F Source: [place] 8:15 AM [facility] REPOSITORY Order Comment: Reason for Laboratory Test . Serial Specimen #1, #2 or #3? 1 TYPE CODE TESTS RESULT OUT OF RANGE REFERENCE UNITS LAB L504.2610 84-246 U/L Normal LDH 204 Performed By: #### L500.4050, L501.1400, L504.2610 #### [facility] [address] [place], [address] VENOUS DUPLEX LOWER Observed: 03/29/2018 Status: F Source: [place] EXTREMITY 1:39 PM [facility] REPOSITORY [facility] Cardiovascular Services [address] [place] [address] Venous Duplex US, Unilateral 03/26/18 1606 MR#: [id number] Acct: [id number] Name: CORI CORRIGAN Rep #: [id number] : 1955 62 From: Arnol Bundy MD Attending Dr: Mer Bain NP Status: REG CLI Ordering Dr: Mer Bain SCIENCE AND OPERATIONS OFFICER-C Date: 03/26/18 Location: [facility] Sex: F C [...] 1338 Date Arnol Bundy MD CC: Catina Tanner MD; Mer Bain SCIENCE AND OPERATIONS OFFICER Date Dictated: 03/26/18 1606 Date Transcribed: 03/29/18 133 Spiritual Advisor: Signed ONCOLOGY VISIT REPORT Observed: 03/24/2018 Status: F Source: [place] 3:47 PM [facility] REPOSITORY [facility] Oncology [address] [place] [address]. [place] [address] OFFICE VISIT Date of Service: 03/24/18 1537 MR#: [id number] Acct: [id number] Name: CORI CORRIGAN Rep #: [id number] : 1955 From: Mer Bain SCIENCE AND OPERATIONS OFFICER-C Age/Sex: 62/F Location: ONC Status: Signed Subjective [...] CD138 (B-A38) negative BCL-2 (bcl-2/100/D5) positive BCL-6 (NZ984Z/A8) positive Cyclin D1/BCL-1 (SP4) negative Brethren (polyclonal) negative Lambda (polyclonal) negative MUM1 (MRQ-43) [...] structures. (Ayaan, Journal of Clinical Oncology 16:2142, 1998). 4. [...] appendicular, axial skeletal structures likely represents neoplasm. (sylvia Andrade al, Clinical Nuclear Medicine, 29:161, 2004). Electronic Signature Germán Milner D.O. Treatment: R [facility] March 24, 2018- - Past Medical/Social History [...] addressed to her satisfaction. Mer Bain, MSN, CLINIC LEAD-C, AOCNP Medications: Prescriptions This Visit Medication Instructions Recorded Multivitamin [Multiple Vitamins] 1 tab PO DAILY 02/25/18 Medications Added to Medication List This Visit 0.9% Normal Saline 1,000 ml Med 03/25/18 00:00 Ordered Primary Care Provider: Catina Tanner MD Referring Provider: 03/24/18 1547 <Electronically signed by Mer KELLY> Date Mer KELLY Cosigner Signature: Date (if applicable) CC: ONCOLOGY VISIT REPORT Observed: 03/24/2018 Status: F Source: [place] 9:[address] [facility] Medical Oncology [address] [place] [address] OFFICE VISIT Date of Service: 03/24/18913 MR#: [id number] Acct: [id number] Name: CORI CORRIGAN Rep #: [id number] : 1955 From: Sam iAken MD Age/Sex: 62/F Location: OMD Status: Signed [...] CD138 (B-A38) negative BCL-2 (bcl-2/100/D5) positive BCL-6 (WY934R/A8) positive Cyclin D1/BCL-1 (SP4) negative Brethren (polyclonal) negative Lambda (polyclonal) negative MUM1 (MRQ-43) [...] structures. (Ayaan, Journal of Clinical Oncology 16:2142, 1998). 4. [...] PO DAILY 02/25/18 Primary Care Provider: Catina Tanner MD Referring Provider: 03/24/18 0928 <Electronically signed by Sam Aiken MD> Date Sam Aiken MD Cosigner Signature: Date (if applicable) CC: COMPREHENSIVE METABOLIC Collected: 03/24/2018 Status: F Source: [place] 8:00 AM [facility] REPOSITORY Order Comment: Serial Specimen #1, #2 [...] Performed By: #### L500.4050, L501.1400, L504.2610 #### [facility] [address] [facility] [place], [address] URIC ACID Collected: 03/24/2018 Status: F Source: [place] 8:00 AM [facility] REPOSITORY Order Comment: Serial Specimen #1, #2 or #3? 1 TYPE CODE TESTS RESULT OUT OF RANGE REFERENCE UNITS LAB L501.1400 2.6-6.0 mg/dL Normal URIC 4.2 Result Comment: The drugs N-Acetylcysteine and Metamizole may falsely depress this assay. Performed By: #### L500.4050, L501.1400, L504.2610 #### [facility] [address] [facility]. [place], [place], [address] LDH Collected: 03/24/2018 Status: F Source: [place] 8:00 AM [facility] REPOSITORY Order Comment: Serial Specimen #1, #2 or #3? 1 TYPE CODE TESTS RESULT OUT OF RANGE REFERENCE UNITS LAB L504.2610 84-246 U/L High LDH 262 Performed By: #### L500.4050, L501.1400, L504.2610 #### [facility] [address] [facility] [place], [place], [address] CBC W/DIFF, AUTOMATED Collected: 03/24/2018 Status: F Source: [place] 7:59 AM [facility] REPOSITORY TYPE CODE TESTS RESULT OUT OF [...] MONOCYTOSIS NOTED. Performed By: #### L100.0100 #### [facility] [address] [place], [address] CONSULTATION Observed: 03/20/2018 Status: F Source: [place] 4:44 PM [facility] REPOSITORY [facility] Medical Records Department [address] [place] [address] Consultation 03/19/18 1410 MR#: [id number] Acct: [id number] Name: CORI CORRIGAN Rep #: [id number] : 1955 62 From: Mer Bain SCIENCE AND OPERATIONS OFFICER-C PCP: Catina Tanner MD Status: DIS IN Y Location: [place] [id number] Subjective Date of Service:: 03/19/18 Chief Complaint: [...] CHOP on 03/19/2018 however patient presented to [facility] ED on 03/17/2018 with complaints of worsening [...] Complete Freq: ONCE Protocol: Document 03/17/18 20:58 [facility] (Rec: 03/17/18 21:02 [facility] [id number]) BMI Required to complete PMH What is [...] Denny Juarez MD at 13:07 EST Tel [phone], Service support , Chest X-Ray 03/19/18 10:35 IMPRESSION: Status post left thoracentesis. There is no evidence of pneumothorax. Electronically Signed: Denny Juarez MD at 12:43 EST Tel [phone], Service support , Assessment and Plan Patient [...] agreement with aforementioned plan. Mer Bain, MSN, GOLF COURSE ARCHITECT, AOCNP Medications: Prescriptions This Visit Medication Instructions Recorded Aspirin E.C. [Ecotrin] 325 mg PO PRN PRN 03/17/18 Hydrocodone/Acetaminophen [[place] 1 tab PO PRN PRN 03/17/18 5-325 Tablet] Medications Added to Medication List This Visit Allopurinol [Zyloprim] Med 03/19/18 08:00 Active 300 mg PO DAILYCM Pantoprazole Sodium [Protonix] Med 03/19/18 14:02 Once Primary Care Provider: Catina Tanner MD Referring Provider: Apolonia Moe MD 03/20/18 9619 <Electronically signed by Mer Bain SCIENCE AND OPERATIONS OFFICER-C> Date Mer Bain SCIENCE AND OPERATIONS OFFICER-C Cosigner Signature (if applicable): Date CC: Matias Tapia MD; Alfred Ruiz D.O.; Catina Tanner MD; Sam Aiken MD; Apolonia Moe MD Signed 12 LEAD ELECTROCARDIOGRAM Observed: 03/20/2018 Status: F Source: [place] 1:39 PM [facility] REPOSITORY [facility] Cardiovascular Services [address] [place] [address] 12 Lead EKG 03/17/18 1640 MR#: [id number] Acct: [id number] Name: CORI CORRIGAN Rep #: [id number] : 1955 62 From: Thomas Castro MD Attending Dr: Elmer Vuong MD Status: DIS IN Ordering Dr: Killian Lacy MD Date: 03/17/18 Location: [facility] Sex: F C Admitted: 03/17/18 Test Reason [...] Abnormal ECG Confirmed by ROCIO MATA, THOMAS ([id number]), editor in chief newspaper KENNY CANDELARIO ([id number]) on 03/20/2018 1:39:07 PM Referred By: Apolonia Moe Confirmed By:THOMAS CASTRO MD 03/20/18 8663 Date Thomas Castro MD CC: Elmer Vuong MD; Catina Tanner MD; Apolonia Moe MD; Killian Lacy MD Signed DISCHARGE SUMMARY Observed: 03/20/2018 Status: F Source: [place] 1:04 PM [facility] REPOSITORY [facility] Medical Records Department [address] [place] [address] Discharge Summary 03/20/18 1057 MR#: [id number] Acct: [id number] Name: CORI CRORIGAN Rep #: [id number] : 1955 62 From: Lianna Clayton SCIENCE AND OPERATIONS OFFICER-C PCP: Catina Tanner MD Status: ADM IN Y [id number] <Lianna Clayton - Last Filed: 03/20/18 11:11> [...] Denny Juarez MD at 13:07 EST Tel [phone], Service support , Chest X-Ray 03/19/18 10:35 IMPRESSION: Status post left thoracentesis. There is no evidence of pneumothorax. Electronically Signed: Denny Juarez MD at 12:43 EST Tel [phone], Service support , Dr. Ruiz- Pulmonary Medicine [...] 325 mg PO PRN PRN 03/17/18 Hydrocodone/Acetaminophen [[place] 5-325 Tablet] 1 tab PO PRN PRN [...] DAILY@0800 #15 tablet Primary Care Physician: Catina Tanner MD [Primary Care Provider] - Please follow [...] H Code Visit Inpatient E AND M: [id number] Disch Hosp 03/20/18 1112 <Electronically signed by Lianna CHARLESC> Date Lianna CHARLESC 03/20/18 1304<Electronically signed by Elmer Vuong MD> Cosigner Signature (if applicable): Date Elmer Vuong MD CC: LETICIA Clayton; Elmer Vuong MD; Catina Tanner MD Signed DISCHARGE INSTRUCTION Observed: 03/20/2018 Status: F Source: [place] 11:06 [facility] REPOSITORY [facility] Medical Records Department [address] [place] [address] Instructions for Home/Discharge Instructions 03/20/18 1016 MR#: [id number] Acct: [id number] Name: CORI CORRIGAN Rep #: [id number] : 1955 62 From: Lianna KELLY PCP: Catina Tanner MD Status: ADM IN ADDENDUM by LETICIA Clayton on 03/20/18 at [address] Tapia in 1-2 Weeks 03/20/18 1105 Date Lianna Clayton cc: Matias Tapia MD; Alfred Ruiz D.O.; Catina Tanner MD; Sam Aiken MD * Signed You [...] 325 mg PO PRN PRN 03/17/18 Hydrocodone/Acetaminophen [[place] 5-325 Tablet] 1 tab PO PRN PRN [...] DAILY@0800 #15 tablet Primary Care Physician: Catina Tanner MD [Primary Care Provider] - Please follow [...] Matias Tapia MD; Alfred Ruiz D.O.; Catina Tanner MD; Sam Aiken MD CBC-COMPLETE BLOOD CNT Collected: 03/20/2018 Status: F Source: [place] NO DIFF 5:40 AM [facility] REPOSITORY TYPE CODE TESTS RESULT OUT OF [...] MPV 12.8 Performed By: #### L100.0500 #### [facility] [address] [place], [place], [address] BASIC METABOLIC Collected: 03/20/2018 Status: F Source: [place] PROFILE (BMP) 5:40 AM [facility] REPOSITORY TYPE CODE TESTS RESULT OUT OF [...] GAP 9 Performed By: #### L500.2500 #### [facility] [address] [place], [place], [address] CYTOLOGY, BODY FLUID / Collected: 03/19/2018 Status: F Source: [place] CSF 11:30 AM [facility] REPOSITORY TYPE CODE TESTS RESULT OUT OF RANGE REFERENCE UNITS LAB L350.1000 SEE Normal PATHOLOGY CYTOLOGY,BF REPORT /CSF Result Comment: Specimen submitted to Anatomical Pathology Department for testing. Performed By: #### L350.1000 #### [facility] [address] [place], [place], [address] BODY FLUID CELL Collected: 03/19/2018 Status: C Source: [place] COUNT+DIFF 11:15 AM [facility] REPOSITORY Order Comment: The reference range and [...] Fluid. LAB L200.3400 10 6/ul Normal RBC/BF 0.47890 LAB L200.3500 10 3/uL Normal 1.635 WBC/BF [...] Normal SPEC Performed By: #### L200.0200 #### [facility] [address] [place], [address] PROTEIN, BODY FLUID Collected: 03/19/2018 Status: F Source: [place] 11:15 AM [facility] REPOSITORY Order Comment: Specimen Source: PLUERAL TYPE CODE TESTS RESULT OUT OF RANGE REFERENCE UNITS LAB L503.0300 Not Establ. g/dL Normal 4.3 PROTEIN,BF Performed By: #### L503.0300, L504.0250 #### [facility] [address] [place], [address] LDH,BODY FLUID Collected: 03/19/2018 Status: F Source: [place] 11:15 AM [facility] REPOSITORY Order Comment: Specimen Source: [place]ER[place] TYPE CODE TESTS RESULT OUT OF RANGE REFERENCE UNITS LAB L504.0250 Not Establ. Units/l Normal LDH,BF 163 Performed By: #### L503.0300, L504.0250 #### [facility] [address] [place], [address] MISCELLANEOUS LAB Collected: 03/19/2018 Status: F Source: [place] PROCEDURE 11:15 AM [facility] REPOSITORY Order Comment: Comments: Flow Cytometry on Pleural Fluid Test(s) Ordered: Flow Cytometry on Pleural Fluid TYPE CODE TESTS RESULT OUT OF RANGE REFERENCE UNITS LAB L801.1541 Normal MISC LAB TEST Result Comment: PLEASE SEE PATHOLOGY REPORT Performed By: #### L801.1541 #### [facility] [address] [place], [place], [address] MISCELLANEOUS LAB Collected: 03/19/2018 Status: F Source: [place] PROCEDURE 11:00 AM [facility] REPOS[facility]ORY Order Comment: Comments: [id number] Pleural fluid pleural effusion Test(s) Ordered: Flow [id number] TYPE CODE TESTS RESULT OUT OF RANGE REFERENCE UNITS LAB L801.1541 Normal MISC LAB FLOW SEE PATH TEST Performed By: #### L801.1541 #### [facility] [address] [place], [address] CHEST INSP/EXP 2 VIEW Observed: 03/19/2018 Status: F Source: [place] 10:35 AM [facility] REPOSITORY [facility] Imaging Services [address] [place] [address] Chest Insp/Exp 2 View MR#: [id number] Acct: [id number] Name: CORI CORRIGAN Rep #: [id number] : 1955 F 62 From: Denny Juarez MD PCP: Catina Tanner MD Status: ADM IN Study: Chest Insp/Exp 2 View Date of Exam: 03/19/18 Exam# [id number] Ordering Dr: Denny Juarez MD STUDY: X-RAY [...] Denny Juarez MD at 12:43 EST Tel [phone], Service support , CC: Denny Juarez MD; Catina Tanner MD Spiritual Advisor: Signed CBC-COMPLETE BLOOD CNT Collected: 03/19/2018 Status: F Source: [place] NO DIFF 6:00 AM [facility] REPOSITORY TYPE CODE TESTS RESULT OUT OF [...] MPV 12.7 Performed By: #### L100.0500 #### [facility] [address] [place], [place], [address] BASIC METABOLIC Collected: 03/19/2018 Status: F Source: [place] PROFILE ([facility]) 6:00 AM [facility] REPOSITORY TYPE CODE TESTS RESULT OUT OF [...] 6 Performed By: #### L500.2500, L501.5200 #### [facility] [address] [place], [address] MAGNESIUM Collected: 03/19/2018 Status: F Source: [place] 6:00 AM [facility] REPOSITORY TYPE CODE TESTS RESULT OUT OF RANGE REFERENCE UNITS LAB L501.5200 1.6-2.6 mg/dL Normal MG 2.1 Performed By: #### L500.2500, L501.5200 #### [facility] [address] [place], [address] Observed: 03/19/2018 Status: F Source: [place] CULTURE, BODY FLUID 12:00 [facility] REPOSITORY Gram Stain Centrifuged Specimen? Culture performed on centrifuged specimen Gram Stain Rare Red Blood Cells Rare White Blood Cells No organisms seen Body Fluid Cult Culture exhibits no growth. Cult, Anaerobic No anaerobic bacteria isolated. Performed By: #### M100.1300 #### [facility] [address] [place], [address] FLUID/WASHING Observed: 03/19/2018 Status: F Source: [place] 12:00 AM [facility] REPOSITORY Patient: CORI CORRIGAN : 1955 (62/F) Acct Num: [id number] Phys: Carolann MATA,Elmer Unit Num: [id number] Loc: U [id number] Specimen: [id number] Received: 03/19/18 - 1344 Spec Type: Fluid TISSUES 1 TISSUES: THORACIC FLUID COMMENT Polymorphous lymphocytes with reactive mesothelial cells are present. Immunohistochemistry ([id number]) supports the above diagnosis. CYTOLOGY GROSS Received is 60 ml of cloudy red fluid labeled with the patient's name and and designated per the requisition as thoracentesis. Submitted for cytology preparation including cell block. / 03/19/18 TC:5 CPT: 77328, 79097 CYTOLOGY STUDY Slides are reviewed. DIAGNOSIS CYTOLOGY Thoracentesis fluid for cytology (cytospin and cell block): Negative for malignant cells. AM:reno 03/20/18 HEADER OPERATION: Ultrasound-guided left thoracentesis PRE-OP DIAGNOSIS: Pleural effusion TISSUE SUBMITTED: Thoracentesis fluid for cytology Signed Anam Heydi 03/20/18 <signature on file> Performed By: #### PFLU #### [facility] [address], [address] IMMUNOHISTOCHEMISTRY Observed: 03/19/2018 Status: F Source: [place] 12:00 AM [facility] REPOSITORY Patient: CORI CORRIGAN : 1955 (62/F) Acct Num: [id number] Phys: Elmer Vuong MD Unit Num: [id number] Loc: [facility] [id number] Specimen: [id number] Received: 03/20/181358 Spec Type: IMMUNO THIS IS A CORRECTED REPORT TISSUES 1 TISSUES: THORACIC FLUID SPECIMEN INFORMATION: Tissue Source: Thoracentesis fluid Clinical Info: Pleural effusion Specimen Number: [id number] CPT code: 09853, 06918 x9 METHODOLOGY: Deparaffinized sections of prefer/formalin-fixed tissue [...] positive, rare BCL-2 (bcl-2/100/D5) positive, rare BCL-6 (QB111S/A8) negative MUM1 (MRQ-43) negative These tests were developed and their performance characteristics determined by [facility]. They may not have been cleared or approved by the U.S. Food and Drug Administration. The FDA has determined that such clearance or approval is not necessary. INTERPRETATION: Thoracentesis fluid: Polytypic lymphoid cells. AM:reno 03/21/18 AM:reno 03/26/18 PHYSICIAN AND INSTITUTION [facility] [address] [place], [place] [address] Signed Anam Heydi 03/26/18 <signature on file> Performed By: #### PIMM #### [facility] [address] [place] [address]. [place], [address] ECHOCARDIOGRAM, LIMITED Observed: 03/18/2018 Status: F Source: [place] STUDY 5:43 PM [facility] REPOSITORY [facility] Cardiovascular Services [address] [place] [address] Echo, Limited Study 03/18/18 0924 MR#: [id number] Acct: [id number] Name: CORI CORRIGAN Rep #: [id number] : 1955 62 From: Matias Tapia MD Attending Dr: Elmer Vuong MD Status: ADM IN Ordering Dr: Matias Tapia MD Date: 03/18/18 Location: [facility] Sex: F C Admitted: 03/17/18 Reason For Study: S/P ID Procedure This was a limited 2D transthoracic [...] Ordering Physician: Matias Tapia Referring Physician: CATINA TANNER Performed By: Maribel Sarkar RDCS 03/18/181742 Date Matias Tapia MD CC: Matias Tapia MD; Elmer Vuong MD; Catina Tanner MD; Apolonia Moe MD Date Dictated: 03/18/18923 Date Transcribed: 03/18/181742 Spiritual Advisor: Signed PROTHROMBIN TIME W/INR Collected: 03/18/2018 Status: F Source: [place] 8:40 AM [facility] REPOSITORY Order Comment: REDRAW. PREVIOUS SPECIMEN REJECTED DUE TO HEMOLYSIS. 03/18/18825 Lianna Chaves. TYPE CODE TESTS RESULT OUT OF RANGE REFERENCE UNITS LAB L300.4150 11.7-14.9 SECONDS Normal PROTIME 13.2 LAB L300.4200 Normal INR 1.0 Performed By: #### L300.3900, L300.4310 #### [facility] [address] [place], [address] PARTIAL THROMBOPLAST Collected: 03/18/2018 Status: F Source: [place] TIME 8:40 AM [facility] REPOSITORY Order Comment: REDRAW. PREVIOUS SPECIMEN REJECTED DUE TO HEMOLYSIS. 03/18/18 0826 Lianna Chaves. TYPE CODE TESTS RESULT OUT OF REFERENCE UNITS RANGE LAB L300.4310 24.1-36.2 Seconds High PTT 36.9 Performed By: #### L300.3900, L300.4310 #### [facility] [address] [place], [address] CONSULTATION Observed: 03/18/2018 Status: F Source: [place] 8:15 AM [facility] REPOSITORY [facility] Medical Records Department [address] [facility] [place] [address] Consultation 03/18/18 0805 MR#: [id number] Acct: [id number] Name: CORI CORRIGAN Rep #: [id number] : 1955 62 From: Matias Tapia MD PCP: Catina Tanner MD Status: ADM IN Y Location: [place] [address] Reason for Consult Date of Consultation: 03/18/18 [...] 02/10/18 Psychiatric History: No pertinent psych hx GLAZIER ARTIST History: No pertinent GLAZIER ARTIST history - *Family History Maternal Family History: [...] 77.0 H, Lymph % (Auto) 10.1 L, [place] % (Auto) 12.4 H, Eos % (Auto) [...] (Auto) 69.5, Lymph % (Auto) 14.9 L, [place] % (Auto) 15.3 H, Eos % (Auto) [...] next few days. * * Discussed with sericulture teacher * * Thank you for allowing me to participate in the care of your patient. Please don't hesitate to call if any issues arise 03/18/18814 <Electronically signed by Matias Tapia MD> Date Matias Tapia MD Cosigner Signature (if applicable): Date CC: Matias Tapia MD; Alfred Ruiz D.O.; Catina Tanner MD; Apolonia Moe MD Signed CONSULTATION Observed: 03/18/2018 Status: F Source: [place] 8:00 AM [facility] REPOSITORY [facility] Medical Records Department [address] [place] [address] Consultation 03/18/18 0658 MR#: [id number] Acct: [id number] Name: CORI CORRIGAN Rep #: [id number] : 1955 62 From: Alfred Ruiz DO PCP: Catina Tanner MD Status: ADM IN Y Location: [place] [address] Reason for Consult Date of Consultation: 03/18/18 [...] breath and newly diagnosed non-ST segment elevation ID. Past Medical History Medical History: Medical History [...] surgery Psychiatric History: No pertinent psych hx GLAZIER ARTIST History: No pertinent GLAZIER ARTIST history Smoking Status: Former smoker Tobacco Use: [...] management accordingly. This note was generated with Fusion[employer] dictation software. It may contain incorrect words, [...] done. Code Visit Inpatient E AND M: 93976 Init Hosp L3 03/18/18 0800 <Electronically signed by Alfred Ruiz DO> Date Alfred Ruiz DO Cosigner Signature (if applicable): Date CC: Matias Tapia MD; Alfred Ruiz D.O.; Catina Tanner MD; Apolonia Moe MD Signed THORACENTESIS W US Observed: 03/18/2018 Status: F Source: [place] 7:10 AM [facility] REPOSITORY [facility] Imaging Services [address] [place] [address] Thoracentesis W US MR#: [id number] Acct: [id number] Name: CORI CORRIGAN Rep #: [id number] : 1955 F 62 From: Denny Juarez MD PCP: Catina Tanner MD Status: ADM IN Study: Thoracentesis W US Date of Exam: 03/19/18 Exam# [id number] Ordering Dr: Alfred Ruiz DO PROCEDURE: ULTRASOUND [...] local anesthesia. Under ultrasound guidance, a 5 Egyptian thoracentesis needle/catheter system was advanced into the [...] Denny Juarez MD at 13:07 EST Tel [phone], Service support , CC: Alfred Ruiz D.O.; Catina Tanner MD Spiritual Advisor: Signed BASIC METABOLIC Collected: 03/18/2018 Status: F Source: [place] PROFILE (BMP) 6:00 AM [facility] REPOSITORY TYPE CODE TESTS RESULT OUT OF [...] GAP 11 Performed By: #### L500.2500 #### [facility] [address] [place], [address] CBC W/DIFF, AUTOMATED Collected: 03/18/2018 Status: F Source: [place] 6:00 AM [facility] REPOSITORY TYPE CODE TESTS RESULT OUT OF [...] Lymph 1.04 Performed By: #### L100.0100 #### [facility] [address] [place], [address] PROTEIN, TOTAL Collected: 03/18/2018 Status: F Source: [place] 6:00 AM [facility] REPOSITORY Order Comment: Serial Specimen #1, #2 or #3? 1 TYPE CODE TESTS RESULT OUT OF RANGE REFERENCE UNITS LAB L501.1500 6.4-8.2 g/dL Normal T PROT 6.7 LAB L501.1950 2.2-4.2 g/dL Normal GLOB 3.2 LAB L501.2000 0.9-2.4 RATIO Normal A/G 1.1 Performed By: #### L001.0705, L504.2610 #### [facility] [address] [place], [address] LDH Collected: 03/18/2018 Status: F Source: [place] 6:00 AM [facility] REPOSITORY Order Comment: Serial Specimen #1, #2 or #3? 1 TYPE CODE TESTS RESULT OUT OF RANGE REFERENCE UNITS LAB L504.2610 84-246 U/L High LDH 324 Performed By: #### L001.0705, L504.2610 #### [facility] [address] [place], [address] BNP,B-TYPE NATRIURETIC Collected: 03/18/2018 Status: F Source: [place] PEPTIDE 6:00 AM [facility] REPOSITORY Order Comment: SPOKE WITH CHRISTINE GERMAIN TO SEE IF OKAY TO ADD TO BLOOD IN LAB SHE WILL CALL BACK AND LET US KNOW. TYPE CODE TESTS RESULT OUT OF RANGE REFERENCE UNITS LAB L503.6620 0-100 pg/mL High B-TYPE 480.2 RAJAN PEP Performed By: #### L503.6620 #### [facility] [address] [place], [address] TROPONIN-I Collected: 03/17/2018 Status: F Source: [place] 11:15 PM [facility] REPOSITORY Order Comment: 'TROP' Serial specimen #1, [...] Not every elevated troponin is indicative of ID. These values should be used with clinical judgement in examining the patient's clinical picture for diagnosis. To establish a diagnosis of ID versus myocardial injury, there must be a demonstrated rise and/or fall in the troponin values, in addition to ischemic symptoms, EKG changes, new regional wall motion abnormality, and/or angiographical evidence. PLEASE NOTE: REFERENCE RANGES EDITED 17 Performed By: #### L501.4010 #### [facility] [address] [place], [address] TROPONIN-I Collected: 03/17/2018 Status: C Source: [place] 8:52 PM [facility] REPOSITORY TYPE CODE TESTS RESULT OUT OF RANGE REFERENCE UNITS LAB L501.4010 <0.045 ng/mL High alert 3.110 TROPONIN-I Result Comment: RESULTS CALLED TO [facility] 03/17/18 2[address]. REPORT READ BACK BY SAME . TROPONIN-I EXPECTED VALUES <0.045 Negative 0.045 - 0.590 Consistent with Cardiac Damage > OR = 0.600 Critical Value Not every elevated troponin is indicative of ID. These values should be used with clinical judgement in examining the patient's clinical picture for diagnosis. To establish a diagnosis of ID versus myocardial injury, there must be a demonstrated rise and/or fall in the troponin values, in addition to ischemic symptoms, EKG changes, new regional wall motion abnormality, and/or angiographical evidence. PLEASE NOTE: REFERENCE RANGES EDITED 17 TROPONIN-I EXPECTED VALUES <0.045 Negative 0.045 - 0.590 Consistent with Cardiac Damage > OR = 0.600 Critical Value Not every elevated troponin is indicative of ID. These values should be used with clinical judgement in examining the patient's clinical picture for diagnosis. To establish a diagnosis of ID versus myocardial injury, there must be a demonstrated rise and/or fall in the troponin values, in addition to ischemic symptoms, EKG changes, new regional wall motion abnormality, and/or angiographical evidence. PLEASE NOTE: REFERENCE RANGES EDITED 17 Performed By: #### L501.4010 #### [facility] [address] [place], [address] HISTORY AND PHYSICAL Observed: 03/17/2018 Status: F Source: [place] EXAM 8:24 PM [facility] REPOSITORY [facility] Medical Records Department [address] [place] [address] History and Physical 03/17/181952 MR#: [id number] Acct: [id number] Name: CORI CORRIGAN Rep #: [id number] : 1955 62 From: Apolonia Moe MD PCP: Catina Tanner MD Status: ADM IN Y Location: [place] [address] History of Present Illness Date of Admission: [...] surgery Psychiatric History: No pertinent psych hx GLAZIER ARTIST History: No pertinent GLAZIER ARTIST history Smoking Status: Former smoker - *Family [...] Patient elects to be full code. Total tdgb-xm-vdxp time 17 minutes. Code Visit Inpatient E AND M: 01571 Init Hosp L3 Procedures: 43467 Advncd Care Plan 30 Min 03/17/182023 <Electronically signed by Apolonia Moe MD> Date Apolonia Moe MD Cosigner Signature: Date (if applicable) CC: Catina Tanner MD; Apolonia Moe MD Signed EMERGENCY DEPARTMENT Observed: 03/17/2018 Status: F Source: [place] SUMMARY 7:26 PM [facility] REPOSITORY [facility] Medical Records Department [address] [place] [address] Emergency Department Summary 03/17/181919 MR#: [id number] Acct: [id number] Name: CORI CORRIGAN Rep #: [id number] : 1955 62 From: Killian Lacy MD PCP: Catina Tanner MD Status: REG ER - ER Visit [...] a port placed by Dr. Ortiz last Saturday. She does report weight loss. She does [...] Disposition: PCU full admission Impression: Non-ST elevation ID Left malignant pleural effusion Stage III follicular lymphoma This note was generated with [employer] software. It may contain incorrect words, spelling, and punctuation that were not noted in review of the chart prior to signing ED Disposition - Plan for ED Patient: Chief Complaint: Shortness of Breath Referrals: Catina Tanner MD [Primary Care Provider] - What to do if you have Problems For any increased pain, shortness of breath, bleeding, nausea or vomiting, chest pain, or any unexpected problems, contact your Primary Care Provider. Call [facility] ([phone]) or report to the closest Emergency Room. Call 911 if necessary. 03/17/181925 <Electronically signed by Killian Lacy MD> Date Killian Lacy MD Cosigner Signature (If Indicated): Date CC: Matias Tapia MD; Catina Tanner MD; Mukesh Martin MD CTA CHEST W/WO Observed: 03/17/2018 Status: F Source: [place] CONTRAST 5:50 PM [facility] REPOSITORY [facility] Imaging Services [address] [place] [address] CTA Chest W/WO Contrast MR#: [id number] Acct: [id number] Name: CORI CORRIGAN Rep #: [id number] : 1955 F 62 From: Mariama Saha MD PCP: Catina Tanner MD Status: REG ER Study: CTA Chest W/WO Contrast Date of Exam: 03/17/18 Exam# [id number] Ordering Dr: Killian Lacy MD STUDY: CTA [...] Tel , Service support , CC: Catina Tanner MD; Killian Lacy MD Spiritual Advisor: Signed CBC W/DIFF, AUTOMATED Collected: 03/17/2018 Status: F Source: [place] 4:57 PM [facility] REPOSITORY TYPE CODE TESTS RESULT OUT OF [...] Lymph 0.93 Performed By: #### L100.0100 #### [facility] [address] [place], [place], [address] BASIC METABOLIC Collected: 03/17/2018 Status: F Source: [place] PROFILE ([facility]) 4:57 PM [facility] REPOSITORY TYPE CODE TESTS RESULT OUT OF [...] Low 5 NA 135 Result Comment: CALLED [facility] WITH CRITICAL CTNI BY [facility] 03-17-18 AT 1742PM READ BACK BY SAME LAB L501.5600 3.5-5.1 mmol/L Normal K 3.9 LAB L501.5900 98-107 mmol/L Normal CL 99 LAB L501.6100 21.0-32.0 mmol/L Normal CO2 28.0 LAB L501.6200 5-15 Normal 8 GAP Performed By: #### L500.2500, L500.3400, L501.4010 #### [facility] [address] [place], [address] LIVER PROFILE Collected: 03/17/2018 Status: F Source: [place] 4:57 PM [facility] REPOSITORY TYPE CODE TESTS RESULT OUT OF [...] Performed By: #### L500.2500, L500.3400, L501.4010 #### [facility] [address] [place], [address] TROPONIN-I Collected: 03/17/2018 Status: F Source: [place] 4:57 PM [facility] REPOSITORY TYPE CODE TESTS RESULT OUT OF RANGE REFERENCE UNITS LAB L501.4010 <0.045 ng/mL High alert 3.440 TROPONIN-I Result Comment: TROPONIN-I EXPECTED VALUES <0.045 Negative 0.045 - 0.590 Consistent with Cardiac Damage > OR = 0.600 Critical Value Not every elevated troponin is indicative of ID. These values should be used with clinical judgement in examining the patient's clinical picture for diagnosis. To establish a diagnosis of ID versus myocardial injury, there must be a demonstrated rise and/or fall in the troponin values, in addition to ischemic symptoms, EKG changes, new regional wall motion abnormality, and/or angiographical evidence. PLEASE NOTE: REFERENCE RANGES EDITED 17 Performed By: #### L500.2500, L500.3400, L501.4010 #### [facility] [address] [place], [address] CHEST PA AND LATERAL Observed: 03/17/2018 Status: F Source: [place] 3:44 PM [facility] REPOSITORY [facility] Imaging Services [address] [place] [address] Chest PA and Lateral MR#: [id number] Acct: [id number] Name: CORI CORRIGAN Rep #: [id number] : 1955 F 62 From: Mariama Saha MD PCP: Catina Tanner MD Status: REG ER Study: Chest PA and Lateral Date of Exam: 03/17/18 Exam# [id number] Ordering Dr: Killian Lacy MD STUDY: X-RAY [...] Tel , Service support , CC: Catina Tanner MD; Killian Lacy MD Spiritual Advisor: Signed 12 LEAD ELECTROCARDIOGRAM Observed: 03/14/2018 Status: F Source: [place] 2:13 PM [facility] REPOSITORY [facility] Cardiovascular Services [address] [place] [address] 12 Lead EKG 03/14/18 0924 MR#: [id number] Acct: [id number] Name: CORI CORRIGAN Rep #: [id number] : 1955 62 From: Matias Tapia MD Attending Dr: Mukesh Martin MD Status: [facility] Ordering Dr: Jose Narvaez MD Date: 03/14/18 Location: [place] Sex: F C Admitted: Test Reason : [...] ECG No previous ECGs available Confirmed by MATIAS TAPIA MD ([id number]), editor in chief newspaper KAREN MARCELINO ([id number]) on 03/14/2018 2:13:24 PM Referred By: Mukesh Martin Confirmed By:MATIAS TAPIA MD 03/14/18 1413 Date Matias Tapia MD CC: Jose Narvaez MD; Catina Tanner MD; Mukesh Martin MD Signed DISCHARGE INSTRUCTION Observed: 03/14/2018 Status: F Source: [place] 1:39 PM [facility] REPOSITORY [facility] Medical Records Department [address] [place] [address] Instructions for Home/Discharge Instructions 03/14/18 1113 MR#: [id number] Acct: [id number] Name: CORI CORRIGAN Rep #: [id number] : 1955 62 From: Mukesh Martin MD PCP: Catina Tanner MD Status: DEP [place] Discharge Diet: Light diet - advance as [...] tab PO DAILY 02/25/18 Hydrocodone Bitart/Apap 5-325 [[place] 5MG-325MG] 1 tablet PO Q6H PRN PRN 2 Days #5 tablet 03/14/18 The following prescriptions were given: Hydrocodone Bitart/Apap 5-325 [[place] 5MG-325MG] 1 tablet PO Q6H PRN PRN 2 Days #5 tablet PRN Reason: Pain Primary Care Physician: Catina Tanner MD [Primary Care Provider] - Test Results: Test results from this visit will be discussed in further detail at your follow-up appointment, if applicable. Please Follow Up With: Mukesh Martin MD - [phone] When: Office appointment can be scheduled if needed 03/14/18 1339 <Electronically signed by Mukesh Martin MD> Date Mukesh Martin MD CC: Catina Tanner MD OPERATIVE REPORT Observed: 03/14/2018 Status: F Source: [place] 11:54 AM [facility] REPOSITORY [facility] Medical Records Department [address] [place] [address] Operative Report 03/14/18 1151 MR#: [id number] Acct: [id number] Name: CORI CORRIGAN Rep #: [id number] : 1955 62 From: Mukesh Martin MD PCP: Catina Tanner MD Status: REG SD Y Location: [place] [address] Problem List (1) Follicular lymphoma grade III Status: Acute Qualifiers: Lymphoma site: axillary Qualified Code(s): C82.24 - Follicular lymphoma grade III, unspecified, lymph nodes of axilla and upper limb Report of Operation Date of Procedure: 03/14/18 Pre-Operative Diagnosis: Follicular lymphoma Post-Operative Diagnosis: Same Surgery/Procedure Performed:: Right internal jugular 6 Egyptian power port placement Description of Surgical Findings:: [...] MD> Date Mukesh Martin MD CC: Catina Tanner MD; Mukesh Martin MD Signed CXR FOR LINE PLACEMENT Observed: 03/14/2018 Status: F Source: [place] 11:14 AM [facility] REPOSITORY [facility] Imaging Services [address] [place] [address] CXR for Line Placement MR#: [id number] Acct: [id number] Name: CORI CORRIGAN Rep #: [id number] : 1955 F 62 From: Denny Juarez MD PCP: Catina Tanner MD Status: [facility] Study: CXR for Line Placement Date of Exam: 03/14/18 Exam# [id number] Ordering Dr: Mukesh Martin MD STUDY: X-RAY CHEST REASON FOR [...] Denny Juarez MD at 12:35 EST Tel [phone], Service support , CC: Catina Tanner MD; Mukesh Martin MD Spiritual Advisor: Signed ONCOLOGY VISIT REPORT Observed: 03/14/2018 Status: F Source: [place] 10:46 AM [facility] REPOSITORY [facility] [address] [place] [address] OFFICE VISIT Date of Service: 03/13/18 1448 MR#: [id number] Acct: [id number] Name: CORI CORRIGAN Rep #: [id number] : 1955 From: Sam Aiken MD Age/Sex: [...] CD138 (B-A38) negative BCL-2 (bcl-2/100/D5) positive BCL-6 (SU509V/A8) positive Cyclin D1/BCL-1 (SP4) negative Brethren (polyclonal) negative Lambda (polyclonal) negative MUM1 (MRQ-43) [...] transformation is noted in the mediastinal structures. (JuanStgarfield et al, Journal of Clinical Oncology 16:2142, [...] PO DAILY 02/25/18 Primary Care Provider: Catina Tanner MD Referring Provider: 03/14/18 1046 <Electronically signed by Sam Aiken MD> Date [facility] Signature: Date (if applicable) CC: Catina Tanner MD; Mukesh Martin MD PET/CT TUMOR BASE Observed: 03/10/2018 Status: F Source: [place] -THIGH INIT 9:33 AM [facility] REPOSITORY [facility] Imaging Services [address] [place] [address] PET/CT Tumor Base -Thigh Init MR#: [id number] Acct: [id number] Name: CORI CORRIGAN Rep #: [id number] : 1955 F 62 From: Germán Milner DO PCP: Catina Tanner MD Status: REG RCR Study: PET/CT Tumor Base -Thigh Init Date of Exam: 03/10/18 Exam# [id number] Ordering Dr: Sam Aiken MD EXAMINATION: FDG [...] Tel , Service support , CC: Catina Tanner MD; Sam Aiken MD Spiritual Advisor: Signed ONC ECHOCARDIOGRAM Observed: 03/07/2018 Status: F Source: [place] COMPLETE 3:33 PM [facility] REPOSITORY [facility] [place] [address] ONC Echo Complete 03/07/18 1349 MR#: [id number] Acct: [id number] Name: CORI CORRIGAN Rep #: [id number] : 1955 62 From: Matias Tapia MD Attending Dr: Sam Aiken MD Status: REG CLI Ordering Dr: Sam Aiken MD Date: 03/07/18 Location: [facility] Sex: F C Admitted: Reason For Study: [...] Ordering Physician: Sam Aiken Referring Physician: CATINA TANNER Performed By: Hina, Pauline, RDCS, RVT 03/07/18 1532 Date Matias Tapia MD CC: Catina Tanner MD; Sam Aiken MD Date Dictated: 03/07/18 1349 Date Transcribed: 03/07/18 1532 Spiritual Advisor: Signed VENOUS DUPLEX LOWER Observed: 03/07/2018 Status: F Source: [place] EXTREMITY 11:42 AM [facility] REPOSITORY [facility] Cardiovascular Services [address] [place] [address] Venous Duplex US - Efra Extrem 03/04/18 1527 MR#: [id number] Acct: [id number] Name: CORI CORRIGAN Rep #: [id number] : 1955 62 From: Arnol Bundy MD Attending Dr: Catina Tanner MD Status: REG CLI Ordering Dr: Catina Tanner MD Date: 03/04/18 Location: [facility] Sex: F [...] report was called and/or faxed to Dr. Tanner. <> Interpretation Summary Deep veins of the [...] Clinical correlation is advised. Ordering Physician: Catina Tanner Performed By: Venancio Seymour RVSaba 03/07/18 1142 Date Arnol Bundy MD CC: Catina Tanner MD Date Dictated: 03/04/18 1527 Date Transcribed: 03/07/18 114 Spiritual Advisor: Signed ANNELISE MAMM W/CAD, Observed: 03/03/2018 Status: F Source: [facility] 1:52 PM [facility] REPOSITORY [facility] Imaging Services [address] [place] [address] DIAG MAMM W/CAD, BILAT MR#: [id number] Acct: [id number] Name: CORI CORRIGAN Rep #: [id number] : 1955 F 62 From: Denny Juarez MD PCP: Catina Tanner MD Status: REG CLI Study: DIAG MAMM W/CAD, BILAT Date of Exam: 03/03/18 Exam# [id number] Ordering Dr: Sam Aiken MD MAMMOGRAPHY - [...] Denny Juarez MD at 10:44 EST Tel [phone], Service support , CC: Catina Tanner MD; Sam Aiken MD Spiritual Advisor: Signed CBC W/DIFF, AUTOMATED Collected: 02/26/2018 Status: F Source: [place] 2:05 PM [facility] REPOSITORY Order Comment: Reason for Laboratory Test [...] 1.93 Performed By: #### L100.0100, L100.9950 #### [facility] [address] [place], [place], [address] RETIC PANEL Collected: 02/26/2018 Status: F Source: [place] 2:05 PM [facility] REPOSITORY Order Comment: Reason for Laboratory Test [...] marrow. Performed By: #### L100.0100, L100.9950 #### [facility] [address] [place], [place], [address] COMPREHENSIVE METABOLIC Collected: 02/26/2018 Status: F Source: [facility] 2:05 PM [facility] REPOSITORY Order Comment: Reason for Laboratory Test [...] Performed By: #### L500.4050, L501.1400, L504.2610 #### [facility] [address] [facility]. [place], [place], [address] URIC ACID Collected: 02/26/2018 Status: F Source: [place] 2:05 PM [facility] REPOSITORY Order Comment: Reason for Laboratory Test . Serial Specimen #1, #2 or #3? 1 TYPE CODE TESTS RESULT OUT OF RANGE REFERENCE UNITS LAB L501.1400 2.6-6.0 mg/dL Normal URIC 5.5 Result Comment: The drugs N-Acetylcysteine and Metamizole may falsely depress this assay. Performed By: #### L500.4050, L501.1400, L504.2610 #### [facility] [address] [facility]. [place], [place], [address] LDH Collected: 02/26/2018 Status: F Source: [place] 2:05 PM [facility] REPOSITORY Order Comment: Reason for Laboratory Test . Serial Specimen #1, #2 or #3? 1 TYPE CODE TESTS RESULT OUT OF RANGE REFERENCE UNITS LAB L504.2610 84-246 U/L High LDH 342 Performed By: #### L500.4050, L501.1400, L504.2610 #### [facility] [address] [facility] [place], [place], [address] ONCOLOGY HISTORY AND Observed: 02/25/2018 Status: F Source: [place] PHYSICAL 5:01 PM [facility] REPOSITORY [facility] Medical Records Department [address] [place] [address] History and Physical 02/25/18 1637 MR#: [id number] Acct: [id number] Name: CORI CORRIGAN Rep #: [id number] : 1955 62 From: Sam Aiken MD PCP: Catina Tanner MD Status: REG RCR Y Location: OMD [...] CD138 (B-A38) negative BCL-2 (bcl-2/100/D5) positive BCL-6 (JG893M/A8) positive Cyclin D1/BCL-1 (SP4) negative Brethren (polyclonal) negative Lambda (polyclonal) negative MUM1 (MRQ-43) [...] drinking: Has the patient needed an eye vocational rehabilitation consultant in the mornings: Comments: 1.5 PACK DAILY [...] PO DAILY 02/25/18 Primary Care Provider: Catina Tanner MD Referring Provider: 02/25/18 1701 <Electronically signed by Sam Aiken MD> Date Sam Aiken MD Cosigner Signature: Date (if applicable) CC: Catina Tanner MD; Sam Aiken MD; Mukesh Martin MD Signed SURGERY VISIT REPORT Observed: 02/25/2018 Status: F Source: [place] 4:56 PM [facility] REPOSITORY [facility] [address] [place] [address]. [address] [place] [address] OFFICE VISIT Date of Service: 02/25/18 MR#: [id number] Acct: [id number] Name: CORI CORRIGAN Rep #: [id number] : 1955 Provider: Mukesh Martin MD Age/Sex: 62/F Location[place] [facility] Status: Signed Intake Intake Visit Reasons: Breast [...] 3 Previous office notes reflect the following. MR#:[id number] Name: CORI CORRIGAN ep #:[id number] : 1955 Provider:Mukesh Martin MD Age/Sex: 62/F Location[place] [place] Status:Signed Intake Vital Signs 02/10/18 Height 5 [...] Method room air Intake Visit Reasons: Lymphadenopathy [facility] 01/31 Certified Pest Control Technician Required: No Is patient in pain?: No Allergies No Known Allergies Allergy (Unverified 02/10/18 15:02) Medications aspirin 81 mg tablet,delayed release 81 mg PO DAILY 02/10/18 [History Confirmed 02/10/18] omega-3 fatty acids 1,000 mg capsule 1,000 mg PO DAILY 02/10/18 [History Confirmed 02/10/18] [facility] Medical History Constipation (Acute) Lymphadenopathy (Acute) Surgical [...] The patient is referred by Dr Catina Tanner for surgical consultation regarding diffuse adenopathy and [...] brother may have had lymphoma. At the [facility] January 31 she had a superficial ultrasound [...] Mukesh Martin MD> Date Mukesh Martin MD [facility] Imaging Services [address] [place] [address] Abdomen/Pelvis WITH Contrast MR#: [id number] Name: CORI CORRIGAN [facility] #:[id number] : 1955F 62 From: Denny Juarez MD PCP:Catina Tanner MD Status:REG CLI Study:Abdomen/Pelvis WITH Contrast Date of Exam:02/14/18 Exam#[id number] Ordering Dr: Mukesh Martin MD STUDY: CT [...] of the left breast. Electronically Signed: Denny Jaurez MD at 14:15 EDT Tel [phone], Service support , CC: Catina Tanner MD; Mukesh Martin MD Spiritual Advisor: Signed [facility] Imaging Services [address] [place] [address] Chest WITH Contrast MR#: [id number] Name: CORI CORRIGAN JR #:[id number] : 1955F 62 From: Denny Juarez MD PCP:Catina Tanner MD Status:REG CLI Study:Chest WITH Contrast Date of Exam:02/14/18 Exam#[id number] Ordering Dr: Mukesh Martin MD STUDY: CT [...] Denny Juarez MD at 14:19 EDT Tel [phone], Service support , Assessment AND Plan Problems [...] assist with her surgical care CC: Dr.'s Tanner and Nelli Martin M.D., F.A.C.S. 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.28 Lymphoma site: multiple regions Breast nodule N63.0 02/25/18 1401 <Electronically signed by Mukesh Martin MD> Date Mukesh Martin MD [facility] Signature: Date (if applicable) CC: Catina Tanner MD; Sam Aiken MD VITAMIN D,25 HYDROXY Collected: 02/18/2018 Status: F Source: [place] 9:10 AM [facility] REPOSITORY TYPE CODE TESTS RESULT OUT OF REFERENCE UNITS RANGE LAB L506.1000 29.95-100.01 ng/mL Low Vitamin D 27.5 25-OH Result Comment: Vitamin D 25(OH) Status Range Deficiency <20 ng/mL (50nmol/L) Insuffciency 20 - 30 ng/mL (50 - 75 nmol/L) Sufficiency 30 - 100 ng/mL (75 - 250 nmol/L) Toxicity >100 ng/mL (>250 nmol/L) Performed By: #### L506.1000, L501.2300, L501.9520, L509.1000 #### [facility] [address] [place], [place], [address] PHOSPHORUS Collected: 02/18/2018 Status: F Source: [place] 9:10 AM [facility] REPOSITORY TYPE CODE TESTS RESULT OUT OF RANGE REFERENCE UNITS LAB L501.2300 2.5-4.9 mg/dL Normal PHOS 4.1 Performed By: #### L506.1000, L501.2300, L501.9520, L509.1000 #### [facility] [address] [place], [address] THYROID STIM HORMONE Collected: 02/18/2018 Status: F Source: [place] (TSH) 9:10 AM [facility] REPOSITORY TYPE CODE TESTS RESULT OUT OF RANGE REFERENCE UNITS LAB L501.9520 0.358-3.74 uIU/mL Normal TSH 2.99 Performed By: #### L506.1000, L501.2300, L501.9520, L509.1000 #### [facility] [address] [place], [address] PTHIN Collected: 02/18/2018 Status: F Source: [place] 9:10 AM [facility] REPOSITORY TYPE CODE TESTS RESULT OUT OF RANGE REFERENCE UNITS LAB L509.1000 18.4-80.1 pg/mL Normal PTHIN 44.4 Performed By: #### L506.1000, L501.2300, L501.9520, L509.1000 #### [facility] [address] [place], [address] COMPREHENSIVE METABOLIC Collected: 02/18/2018 Status: F Source: [place] [facility] 9:10 AM [facility] REPOSITORY TYPE CODE TESTS RESULT OUT OF [...] GAP 10 Performed By: #### L500.4050 #### [facility] [address] [place], [address] #### L3100.0390, L3100.0528, L3100.0625 #### [facility] (refer to report for specific site) refer to report for address and phone number HEPATITIS B SURFACE Collected: 02/18/2018 Status: F Source: [place] AG 9:10 AM [facility] REPOSITORY TYPE CODE TESTS RESULT OUT OF RANGE REFERENCE UNITS LAB L3100.0400 Negative Normal HB Negative SURF AG Result Comment: Performed at: - [address] [id number] Sports Equipment Supervisor: Sherif Mendez PhD, Phone: [phone] Performed By: #### L500.4050 #### [facility] [address] [place] [address]. [place], [address] #### L3100.0390, L3100.0528, L3100.0625 #### [facility] (refer to report for specific site) refer to report for address and phone number HEP B SURFACE Collected: 02/18/2018 Status: F Source: [place] ANTIBODIES 9:10 AM [facility] REPOSITORY TYPE CODE TESTS RESULT OUT OF RANGE REFERENCE UNITS LAB L3100.0528 . Normal Hep B Non Reactive Mirtha AB Result Comment: Non Reactive: Inconsistent with immunity, less than 10 mIU/mL Reactive: Consistent with immunity, greater than 9.9 mIU/mL Performed By: #### L500.4050 #### [facility] [facility] [address] [place], [place], [address] #### L3100.0390, L3100.0528, L3100.0625 #### [facility] (refer to report for specific site) refer to report for address and phone number HEPATITIS C ANTIBODIES Collected: 02/18/2018 Status: F Source: [place] 9:10 AM [facility] REPOSITORY TYPE CODE TESTS RESULT OUT OF RANGE REFERENCE UNITS LAB L3100.0650 0.0-0.9 s/co ratio Normal HEP C AB <0.1 Result Comment: Negative: < 0.8 Indeterminate: 0.8 - 0.9 Positive: > 0.9 The CDC recommends that a positive HCV antibody result be followed up with a HCV Nucleic Acid Amplification test (486652). Performed By: #### L500.4050 #### [facility] [address] [facility] [place], [address] #### L3100.0390, L3100.0528, L3100.0625 #### [facility] (refer to report for specific site) refer to report for address and phone number CALCIUM IONIZED Collected: 02/18/2018 Status: F Source: [place] 9:10 AM [facility] REPOSITORY TYPE CODE TESTS RESULT OUT OF REFERENCE UNITS RANGE LAB L3100.9600 4.5-5.6 mg/dL High IONIZED CA 6.2 Performed By: #### L3100.9600 #### [facility] (refer to report for specific site) refer to report for address and phone number ABDOMEN/PELVIS WITH Observed: 02/14/2018 Status: F Source: [place] CONTRAST 12:49 PM [facility] REPOSITORY [facility] Imaging Services [address] [place] [address] Abdomen/Pelvis WITH Contrast MR#: [id number] Acct: [id number] Name: CORI CORRIGAN Rep #: [id number] : 1955 F 62 From: Denny Juarez MD PCP: Catina Tanner MD Status: REG CLI Study: Abdomen/Pelvis WITH Contrast Date of Exam: 02/14/18 Exam# [id number] Ordering Dr: Mukesh Martin MD STUDY: CT [...] Denny Juarez MD at 14:15 EDT Tel [phone], Service support , CC: Catina Tanner MD; Mukesh Martin MD Spiritual Advisor: Signed CHEST WITH CONTRAST Observed: 02/14/2018 Status: F Source: [place] 12:49 PM [facility] REPOSITORY [facility] Imaging Services [address] [place] [address] Chest WITH Contrast MR#: [id number] Acct: [id number] Name: CORI CORRIGAN Rep #: [id number] : 1955 F 62 From: Denny Juarez MD PCP: Catina Tanner MD Status: REG CLI Study: Chest WITH Contrast Date of Exam: 02/14/18 Exam# [id number] Ordering Dr: Mukesh Martin MD STUDY: CT [...] Denny Juarez MD at 14:19 EDT Tel [phone], Service support , CC: Catina Tanner MD; Mukesh Martin MD Spiritual Advisor: Signed SURGERY VISIT REPORT Observed: 02/13/2018 Status: F Source: [place] 9:31 AM [facility] [address] [place] [address] [address] [place] [address] OFFICE VISIT Date of Service: 02/13/18 MR#: [id number] Acct: [id number] Name: CORI CORRIGAN Rep #: [id number] : 1955 Provider: Mukesh Martin MD Age/Sex: 62/F Location: [facility] Status: Signed Intake Intake Visit Reasons: US Mammotone bx- Left groin Chief Complaint: left groin mammotome bx Certified Pest Control Technician Required: No Is patient in pain?: No [...] blood loss. Mukesh Martin M.D., F.A.C.S. [facility] Director Yes Biopsy Lymphnode Biopsy: 68001 Lymph[place] w Needle (61259) [facility] Procedure Performed By: Procedure performed by: [...] Referrals: Coding Level of Care Code Attention Research Center Director Diagnoses Generalized lymphadenopathy R59.1 Additional Codes Biopsy - Lymphnode Biopsy: 15861 Lymphnode w Needle (96054) Comment 95768 additional code 02/13/18 0931 <Electronically signed by Mukesh Martin MD> Date Mukesh Martin MD Cosigner Signature: Date (if applicable) CC: Catina Tanner MD MISCELLANEOUS SPECIMEN Observed: 02/13/2018 Status: F Source: [place] 12:00 AM [facility] REPOSITORY Patient: CORI CORRIGAN : 1955 (62/F) Acct Num: [id number] Phys: Veronica MATA,Mukesh Unit Num: [id number] Loc: [facility]SPEC Specimen: [id number] Received: 02/13/18 - 1055 Spec Type: MISC TISSUES 1 TISSUES: Inguinal region, NOS COMMENT Immunohistochemistry ([id number]) supports the above diagnosis. The lymphoma is [...] one cassette. / AM:reno 02/13/18 TC:0 CPT: 15285 HEADER OPERATION: Left groin mammotome biopsy PRE-OP DIAGNOSIS: Left groin enlarged lymph node TISSUE SUBMITTED: Left groin tissue MICROSCOPIC DESCRIPTION Slides are reviewed. MICROSCOPIC DIAGNOSIS Left groin lymph node, core biopsy: Consistent with follicular center lymphoma, grade 3/3. AM:reno 02/14/18 Signed Anam Soliz 02/19/18 <signature on file> Performed By: #### PMISC #### [facility] [facility] [address] [place], [address] IMMUNOHISTOCHEMISTRY Observed: 02/13/2018 Status: F Source: [place] 12:00 AM [facility] REPOSITORY Patient: CORI CORRIGAN : 1955 (62/F) Acct Num: [id number] Phys: Mukesh Martin MD Unit Num: [id number] Loc: [facility]SPEC Specimen: [id number] Received: 02/14/181106 Spec Type: IMMUNO TISSUES 1 TISSUES: Inguinal region, NOS SPECIMEN INFORMATION: Tissue Source: Left groin tissue Clinical Info: Left groin enlarged lymph node Specimen Number: [id number] CPT code: 77921, 35405 x22 METHODOLOGY: Deparaffinized sections of prefer/formalin-fixed tissue [...] CD138 (B-A38) negative BCL-2 (bcl-2/100/D5) positive BCL-6 (LB394H/A8) positive Cyclin D1/BCL-1 (SP4) negative Brethren (polyclonal) negative Lambda (polyclonal) negative MUM1 (MRQ-43) equivocal These tests were developed and their performance characteristics determined by [facility]. They may not have been cleared or approved by the U.S. Food and Drug Administration. The FDA has determined that such clearance or approval is not necessary. INTERPRETATION: Left groin tissue, core biopsy: Consistent with follicular center lymphoma, grade III/III. AM:reno 02/19/18 Case has been reviewed in consultation with Dr. Caceres who concurs with the above diagnosis. [facility] [address] [address] Signed Anam Soliz 02/19/18 <signature on file> Performed By: #### PIMM #### [facility] [address] [place], [place] [address]. [place], [address] SURGERY VISIT REPORT Observed: 02/10/2018 Status: F Source: [place] 5:46 PM [facility] REPOSITORY [facility] [address] [place] [address]. [address] [place] [address] OFFICE VISIT Date of Service: 02/10/18 MR#: [id number] Acct: [id number] Name: CORI CORRIGAN Rep #: [id number] : 1955 Provider: Mukesh Martin MD Age/Sex: 62/F Location: [facility] Status: Signed Intake Vital Signs02/10/18 Height 5 ft 4 in 02/10/18 Weight: 180 lb Intake Visit Reasons: Lymphadenopathy [facility] 01/31 Certified Pest Control Technician Required: No Is patient in pain?: No Allergies No Known Allergies Allergy (Unverified 02/10/18 15:02) Medications aspirin 81 mg tablet,delayed release 81 mg PO DAILY 02/10/18 [History Confirmed 02/10/18] omega-3 fatty acids 1,000 mg capsule 1,000 mg PO DAILY 02/10/18 [History Confirmed 02/10/18] [facility] Medical History Constipation (Acute) Lymphadenopathy (Acute) Surgical [...] The patient is referred by Dr Catina Tanner for surgical consultation regarding diffuse adenopathy and [...] brother may have had lymphoma. At the [facility] January 31 she had a superficial ultrasound [...] Detailed, Low Diagnoses Generalized lymphadenopathy R59.1 02/10/18 1746 <Electronically signed by Mukesh Martin MD> Date Mukesh Martin MD Cosigner Signature: Date (if applicable) CC: Catina Tanner MD CNPN Observed: 02/07/2018 Status: COMPLETED Source: [place] 12:00 AM [facility] REPOSITORY Telephone (WOOB) CORI CORRIGAN ([id number]) 1955 F Date Time Provider Department 02/07/18 MIRIAN SALAZAR (DELICIA) WOOB During your visit today, we recorded [...] may contact patient to schedule mammogram. Laura Little RN 02/07/2018 9:39 AM Signed Please file pended mammogram order. Emma Little RN Allergies As of Date: 02/07/2018 (No Known Allergies) Date Reviewed: 03/23/2015 Reviewed by: Natalie Jones LPN - Fully Assessed Reason for Visit: Orders [681] Primary Visit Diagnosis:Screening mammogram, encounter for [Z12.31] Order(s):CHESTER SCREENING [2396128] Order #: [id number] FUTURE Prescriptions as of 02/07/2018 Sig: ASPIRIN 81 MG TABLET,DELAYED * Take 81 mg by mouth once hari* OMEGA-3 FATTY ACIDS-FISH OIL * Take by mouth. Problem List As Of Date: 02/07/2018 (None) Encounter Status:Closed by MIRIAN SALAZAR on 02/07/18 ABDOMEN LIMITED Observed: 01/31/2018 Status: F Source: [place] 7:40 AM [facility] REPOSITORY [facility] Imaging Services [address] [place] [address] Abdomen Limited MR#: [id number] Acct: [id number] Name: CORI CORRIGAN Rep #: [id number] : 1955 F 62 From: Francheska Hwang PCP: Catina Tanner MD Status: REG CLI Study: Abdomen Limited Date of Exam: 01/31/18 Exam# [id number] Ordering Dr: Catina Tanner MD STUDY: SUPERFICIAL ULTRASOUND - LYMPHADENOPATHY. Bilateral [...] Tel , Service support , CC: Catina Tanner MD Spiritual Advisor: Signed HEAD/NECK SOFT TISSUE Observed: 01/31/2018 Status: F Source: [place] 7:40 AM [facility] REPOSITORY [facility] Imaging Services [address] [place] [address] Head/Neck Soft Tissue MR#: [id number] Acct: [id number] Name: CORI CORRIGAN Rep #: [id number] : 1955 F 62 From: Misbah Cordova DO PCP: Catina Tanner MD Status: REG CLI Study: Head/Neck Soft Tissue Date of Exam: 01/31/18 Exam# [id number] Ordering Dr: Catina Tanner MD STUDY: SUPERFICIAL ULTRASOUND - NECK REGION [...] Tel , Service support , CC: Catina Tanner MD Spiritual Advisor: Signed URINALYSIS, COMPLETE Collected: 01/27/2018 Status: F Source: [place] 11:06 AM [facility] REPOSITORY Order Comment: How was Urine Obtained? [...] 0-5 SEEN Performed By: #### L400.0001 #### [facility] [address] [place], [address] CBC W/DIFF, AUTOMATED Collected: 01/27/2018 Status: F Source: [place] 11:06 [facility] REPOSITORY TYPE CODE TESTS RESULT OUT OF [...] 1.92 Performed By: #### L100.0100, L500.4050 #### [facility] [place], [address] COMPREHENSIVE METABOLIC Collected: 01/27/2018 Status: F Source: [facility] 11:06 AM [facility] REPOSITORY TYPE CODE TESTS RESULT OUT OF [...] 10 Performed By: #### L100.0100, L500.4050 #### [facility] [address] [facility] [place], [address] CHEST PA AND LATERAL Observed: 01/27/2018 Status: F Source: [place] 11:05 AM [facility] REPOSITORY [facility] Imaging Services [address] [place] [address] Chest PA and Lateral MR#: [id number] Acct: [id number] Name: CORI CORRIGAN Rep #: [id number] : 1955 F 62 From: Misbah Cordova DO PCP: Catina Tanner MD Status: REG CLI Study: Chest PA and Lateral Date of Exam: 01/27/18 Exam# [id number] Ordering Dr: Catina Tanner MD STUDY: X-RAY CHEST REASON FOR EXAM: [...] Tel , Service support , CC: Catina Tanner MD Spiritual Advisor: Signed ALLERGIES ALLERGIES DATE TYPE / CODE NAME / CODE REACTION SEVERITY SOURCE 04/28/2018 Drug No Known Unknown [facility] Allergy/4160 Allergies/F00 Hospital 13421(SNOMED 5761335(RXNOR Repository CT) M) ENCOUNTERS ENCOUNTERS ADMIT/DISCHARGE ACCOUNT ADMITTING ENCOUNTER LOCATION SOURCE NUMBER CLASS 04/28/2018 [id number] Ambulatory BMSBuilding:B [place] [facility] [place].Counts include 234 beds at the [facility] Repository 04/28/2018 [id number] Ambulatory [facility] [facility] 9 [facility] ing:OMD Repository 04/17/2018 [id number] Ambulatory BMSBuilding:B [place].CF.Counts include 234 beds at the [facility] Repository 04/13/2018/ [id number] Emergency [place] 9 [facility] ing:ED Repository 04/04/2018/ [id number] Ambulatory BMSBuilding:B [place] [facility] 0 [facility] Repository 04/03/2018 [id number] Ambulatory [place] 6 [facility] ing:US Repository 04/02/2018 [id number] Ambulatory [place] 1 [facility] ing:RAD Repository 04/02/2018 [id number] Ambulatory BMSBuilding:B [place] 6 MS.Counts include 234 beds at the [facility] Repository 03/26/2018 [id number] Ambulatory [place] 3 [facility] ing:CVS Repository 03/24/2018 [id number] Ambulatory BMSBuilding:B [place] 8 MS.Counts include 234 beds at the [facility] Repository 03/24/2018 [id number] Ambulatory BMSBuilding:B [place] 4 MS.CF.Counts include 234 beds at the [facility] Repository 03/17/2018 [id number] Ambulatory BMSBuilding:W [place] 0 [facility] Repository 03/17/2018/ [id number] Ambulatory BMSBuilding:W [place] 8 5 [facility] Repository 03/17/2018 [id number] Ambulatory BMSBuilding:W [place] 9 [facility] Repository 03/17/2018/ [id number] [place]am, [place] Inpatient [place] 8 8 [place] Encounter [facility] ing:PCURoom: Repository [id number]: 1 03/17/2018 [id number] Koram, [place] Ambulatory BMSBuilding:B [place] 6 [place].[facility] Repository 03/17/2018 [id number] [place]am, [place] Ambulatory BMSBuilding:B [place] 6 [place].CF.[facility] Repository 03/17/2018 [id number] Koram, [place] Ambulatory BMSBuilding:B [place] 7 [place] MS.[facility] Repository 03/17/2018 [id number] [place], [place] Ambulatory BMSBuilding:B [place] 9 [place] MS.CF.[facility] Repository 03/17/2018 [id number] [place]am, [place] Ambulatory BMSBuilding:B [place] 4 [place] MS.CF.[facility] Repository 03/17/2018 [id number] Koram, [place] Ambulatory BMSBuilding:B [place] 1 [place] MS.[facility] Repository 03/17/2018 [id number] [place] Moe Ambulatory BMSBuilding:B [place] 5 [place] MS.CF.[facility] Repository 03/17/2018 [id number] [place] Moe Ambulatory BMSBuilding:B [place] 0 [place].[facility] Repository 03/14/2018 [id number] Ambulatory BMSBuilding:B [place] 3 [place].CF.[facility] Repository 03/14/2018/ [id number] Ambulatory [place] 8 5 [facility] ing:SDCRoom: Repository AC17 03/13/2018 [id number] Ambulatory BMSBuilding:B [place] 4 [place].CF.Counts [facility] [facility] Repository 03/07/2018 [id number] Ambulatory BMSBuilding:W Caitlin 2 [facility] Repository 03/07/2018 [id number] Ambulatory [place] [address] [facility] ing[facility]S Repository 03/04/2018 [id number] Ambulatory [place] [facility] ing[facility]CVS Repository 03/03/2018 [id number] Ambulatory [place] 7 [facility] ing:OPBI Repository 02/25/2018 [id number] Ambulatory BMSBuilding:B Caitlin 8 [place].CF.Counts include 234 beds at the [facility] Repository 02/25/2018/ [id number] Ambulatory BMSBuilding:B [place] 8 0 MS.[facility] Repository 02/18/2018 [id number] Ambulatory [place] 3 [facility] ing:MFPLAB Repository 02/14/2018 [id number] Ambulatory [place] 6 [facility] ing:CT Repository 02/13/2018 [id number] Ambulatory [place] 7 [facility] ing:LABSPEC Repository 02/13/2018/ [id number] Ambulatory BMSBuilding:B [place] 8 0 MS.[facility] Repository 02/11/2018 [id number] Ambulatory [place] 2 [facility] ing:OPUS Repository 02/10/2018/ [id number] Ambulatory BMSBuilding:B Caitlin 8 1 MS.[facility] Repository 01/31/2018 [id number] Ambulatory [place]lin [place] 8 [facility] ing: Repository 01/27/2018 [id number] Ambulatory Caitlin Caitlin 9 [facility] ing:[facility] Repository PAYERS PAYERS ENCOUNTER GUARANTOR PAYER SUBSCRIBER SOURCE 04/28/2018 CORI Higgins Primary CORI Tucker [id number] Insurance:CARESOURCE FORTNERDOB: [facility] [place] Number[place] Repository [address]Vug: 330 [id number] [phone] () Date:9129-51-63IP[address] [address]TJ: 04/28/2018 Secondary NOT GIVENUNK [place] Insurance:SELF PAY [facility] Number: Effective Repository Date:2018-04-28 04/28/2018 BARON Primary CORI Tucker [id number] Insurance:CARESOURCE FORTNERDOB: [facility] 1604[place] Number: Repository [address]Pdc: 330 [id number] [phone] () Date:8045-20-68AL[address] [address]RB: 04/28/2018 Secondary NOT GIVENUNK [place] Insurance:SELF PAY [facility] Number: Effective Repository Date:2018-02-20 04/17/2018 BARON Primary CORI Tucker [id number] Insurance:CARESOURCE FORTNERDOB: [facility] [id number] Number: Repository [address]Acx: 330 [id number] [phone] () Date:8452-21-38RN[address] [address]TP: 04/17/2018 Secondary NOT GIVENUNK [place]lin Insurance:SELF PAY [facility] Number: Effective Repository Date:2018-04-17 04/13/2018 BARON Primary BARON Caitlin [id number] Insurance:CARESOURCE FORTNERDOB: Community [facility] FOR [facility] 6991-89-29CL[place] Number: Repository [address]Byd: 330 [id number] [phone] (HP) Date:8231-01-97RG [address] [address]MK: 04/13/2018 Secondary NOT GIVENUNK [place] Insurance:SELF PAY [facility] Effective Repository Date:2018-04-13 04/04/2018 BARON Primary CORI Tucker [id number] Insurance:CARESOURCE FORTNERDOB: [facility] JUST [facility] 0381-09-[place] Number: Repository 15[address]Omw: 330 [id number] [phone] (HP) Date:5632-97-47YX [address] [address]AY: 04/04/2018 Secondary NOT GIVENUNK [place] Insurance:SELF PAY [facility] Number: Effective Repository Date:2018-03-20 04/03/2018 BARON Primary CORI Tucker [id number] Insurance:CARESOURCE FORTNERDOB: [facility] JUST [place] 221444-07-[place] Number: Repository [address]Wnr: 330 [id number] [phone] (HP) Date:1971-62-45HH [address] [place] [address]QP: 04/03/2018 Secondary NOT GIVENUNK [place] Insurance:SELF PAY [facility] Number: Effective Repository Date:2018-04-02 04/02/2018 BARON Primary CORI Tucker [id number] Insurance:CARESOURCE FORTNERDOB: [facility] JUST [place] 221444-07-23[place] Number: Repository [address]Huq: 330 [id number] [phone] (HP) Date:8605-18-46TA[address] [address]HI: 04/02/2018 Secondary NOT GIVENUNK [place] Insurance:SELF PAY [facility] Number: Effective Repository Date:2018-04-02 04/02/2018 CORI Higgins Primary CORI Tucker [id number] Insurance:CARESOURCE FORTNERDOB: Community [facility] 6642-46-54BQPLakeside[place] Number: Repository [address]Qnr: 330 [id number] [phone] (HP) Date:9743-63-58DR [address] [address]QN: 04/02/2018 Secondary NOT GIVENUNK [place] Insurance:SELF PAY [facility] Number: Effective Repository Date:2018-04-02 03/26/2018 BARON Primary CORI Tucker [id number] Insurance:CARESOURCE FORTNERDOB: [facility] K[place]EN [place]644-07-23[place] Number: Repository [address]Wqe: 330 [id number] [phone] () Date:6912-26-88KB [address] [address]PD: 03/26/2018 Secondary NOT GIVENUNK [place]lin Insurance:SELF PAY [facility] Number: Effective Repository Date:2018-03-26 03/24/2018 BARON Primary CORI Higgins Caitlin [id number] Insurance:CARESOURCE FORTNERDOB: [facility] [place] 993184-07-23[place] Number: Repository [address]Opi: 330 [id number] [phone] (HP) Date:8626-82-80DK[address] [address]EU: 03/24/2018 Secondary NOT GIVENUNK [place] Insurance:SELF PAY [facility] Number: Effective Repository Date:2018-03-24 03/24/2018 BARON Primary CORI Higgins [place] [id number] Insurance:CARESOURCE FORTNERDOB: Community [facility] FOR [facility] [id number] Number: Repository [address]Oag: 330 [id number] [phone] (HP) Date:6827-61-77OD [address] [address]AY: 03/24/2018 Secondary NOT GIVENUNK [place] Insurance:SELF PAY [facility] Number: Effective Repository Date:2018-03-24 03/17/2018 BARON Primary BARON [place] [id number] Insurance:CARESOURCE FORTNERDOB: Community [facility] JUST FOR [facility] 1526-38-32NHQL[place] Number: Repository [address]Hhk: 330 [id number] [phone] (HP) Date:2106-21-81PY [address] [address]VW: 03/17/2018 Secondary NOT GIVENUNK [place]lin Insurance:SELF PAY [facility] Number: Effective Repository Date:2018-03-17 03/17/2018 BARON Primary BARON Caitlin [id number] Insurance:CARESOURCE FORTNERDOB: [facility] JUST FOR [address]07-23[place] Number: Repository [address]Ykn: 330 [id number] [phone]) Date:5538-34-79JW [address] [address]BN: 03/17/2018 Secondary NOT GIVENUNK [place] Insurance:SELF PAY [facility] Number: Effective Repository Date:2018-03-17 03/17/2018 BARON Primary BARON [place] [id number] Insurance:CARESOURCE FORTNERDOB: Community [facility] JUST [place] [address] Number: Repository 17[address]Opv: 330 [id number] [phone] (HP) Date:7831-56-42FR [address] [address]KZ: 03/17/2018 Secondary NOT GIVENUNK [place] Insurance:SELF PAY [facility] Number: Effective Repository Date:2018-03-17 03/17/2018 CORI Higgins Primary CORI Tucker [id number] Insurance:CARESOURCE FORTNERDOB: Community [facility] JUST FOR [place] [id number] Number: Repository [address]Hnf: 330 [id number] [phone] (HP) Date:2622-61-76RO [address] [address]DQ: 03/17/2018 Secondary NOT GIVENUNK [place] Insurance:SELF PAY [facility] Number: Effective Repository Date:2018-03-17 03/17/2018 BARON Primary CORI Tucker [id number] Insurance:CARESOURCE FORTNERDOB: [facility] JUST [address]07[address]23[place] Number: Repository [address]Bbb: 330 [id number] [phone] () Date:8449-64-00XO [address] [address]OF: 03/17/2018 Secondary NOT GIVENUNK [place] Insurance:SELF PAY [facility] Number: Effective Repository Date:2018-03-17 03/17/2018 BARON Primary CORI Higgins Caitlin [id number] Insurance:CARESOURCE FORTNERDOB: [facility] JUST [place] 221444-07-23[place] Number: Repository 8[address]Ahr: 330 [id number] [phone] () Date:6937-77-29AS [address] [address]XN: 03/17/2018 Secondary NOT GIVENUNK [place] Insurance:SELF PAY [facility] Number: Effective Repository Date:2018-03-17 03/17/2018 BARON Primary CORI Higgins [place] [id number] Insurance:CARESOURCE FORTNERDOB: [facility] [address]07[address]23[place], [place] Number: Repository [address]Sgd: 330 [id number] [phone]) Date:8076-18-62ZL [address] [address]MT: 03/17/2018 Secondary NOT GIVENUNK [place]lin Insurance:SELF PAY [facility] Number: Effective Repository Date:2018-03-17 03/17/2018 BARON Primary BARON Caitlin [id number] Insurance:CARESOURCE FORTNERDOB: Community [facility] JUST FOR [facility] 0928-24-56EQRLakes[place] Number: Repository [address]Wrj: 330 [id number] [phone]) Date:8320-72-65CM [address] [address]KD: 03/17/2018 Secondary NOT GIVENUNK [place] Insurance:SELF PAY [facility] Number: Effective Repository Date:2018-03-17 03/17/2018 BARON Primary BARON [place] [id number] Insurance:CARESOURCE FORTNERDOB: Community [facility] JUST FOR [facility] 3391-76-30KYVL[place], [place] Number: Repository [address]Lby: (330 [id number] [phone]) Date:5056-33-26SS [address] [address]KW: 03/17/2018 Secondary NOT GIVENUNK [place] Insurance:SELF PAY [facility] Number: Effective Repository Date:2018-03-17 03/17/2018 BARON Primary BARON Caitlin [id number] Insurance:CARESOURCE FORTNERDOB: Community [facility] JUST [facility] 5247-89-69XBQLakes[place], [place] Number: Repository [address]Hxa: 330 [id number] [phone] (HP) Date:4015-59-21HH [address] [address]EU: 03/17/2018 Secondary NOT GIVENUNK [place] Insurance:SELF PAY [facility] Number: Effective Repository Date:2018-03-17 03/17/2018 BARON Primary CORI Tucker [id number] Insurance:CARESOURCE FORTNERDOB: Community [facility] JUST FOR [place] [id number] Number: Repository [address]Ojn: 330 [id number] [phone] (HP) Date:1775-42-81YB [address] [address]YQ: 03/17/2018 Secondary NOT GIVENUNK [place] Insurance:SELF PAY [facility] Number: Effective Repository Date:2018-03-17 03/17/2018 BARON Primary CORI Higgins Caitlin [id number] Insurance:CARESOURCE FORTNERDOB: [facility] JUST [address]07[address]23[place] Number: Repository [address]272Zov: 330 [id number] [phone] (HP) Date:0867-25-50HK [address] [address]LC: 03/17/2018 Secondary NOT GIVENUNK [place]lin Insurance:SELF PAY [facility] Number: Effective Repository Date:2018-03-17 03/14/2018 BARON Primary CORI Tucker [id number] Insurance:CARESOURCE FORTNERDOB: [facility] [address]07[address]23[place] Number: Repository 16[address]Yjf: 330 [id number] [phone] (HP) Date:4451-02-68AM [address] [address]EC: 03/14/2018 Secondary NOT GIVENUNK [place] Insurance:SELF PAY [facility] Number: Effective Repository Date:2018-03-14 03/14/2018 BARON Primary CORI Tucker [id number] Insurance:CARESOURCE FORTNERDOB: [facility] [address] Number: Repository [address]Kgg: 330 [id number] [phone] (HP) Date:5046-43-59XD [address] [address]AQ: 03/14/2018 Secondary NOT GIVENUNK [place] Insurance:SELF PAY [facility] Number: Effective Repository Date:2018-03-12 03/13/2018 BARON Primary CORI Tucker [id number] Insurance:CARESOURCE FORTNERDOB: Community [facility] JUST FOR [facility] 6131-68-28QCULakes[place], [place] Number: Repository [address]Pkk: 330 [id number] [phone] (HP) Date:6663-24-44MR [address] [address]RA: 03/13/2018 Secondary NOT GIVENUNK [place] Insurance:SELF PAY [facility] Number: Effective Repository Date:2018-03-13 03/07/2018 BARON Primary CORI Higgins [place] [id number] Insurance:CARESOURCE FORTNERDOB: Community [facility] 7237-54-63OKWL[place] Number: Repository [address]Raj: 330 [id number] [phone] () Date:8817-30-93QG [address] [address]BM: 03/07/2018 Secondary NOT GIVENUNK [place] Insurance:SELF PAY [facility] Number: Effective Repository Date:2018-03-07 03/07/2018 BARON Primary BARON Caitlin [id number] Insurance:CARESOURCE FORTNERDOB: [facility] 5750-70-75VSTLakeside, [place] Number: Repository [address]Uzo: 330 [id number] [phone] () Date:6597-27-58SH [address] [address]UC: 03/07/2018 Secondary NOT GIVENUNK [place] Insurance:SELF PAY [facility] Number: Effective Repository Date:2018-02-25 03/04/2018 BARON Primary BARON Caitlin [id number] Insurance:CARESOURCE FORTNERDOB: Community [facility] JUST FOR [facility] 9854-86-06ASRLakes[place] Number: Repository [address]Hqk: 330 [id number] [phone] (HP) Date:7556-91-31VE [address] [address]SX: 03/04/2018 Secondary NOT GIVENUNK [place] Insurance:SELF PAY [facility] Number: Effective Repository Date:2018-03-04 03/03/2018 BARON Primary CORI Tucker [id number] Insurance:CARESOURCE FORTNERDOB: [facility] JUST [facility] 6019-83-79JRQL[place] Number: Repository [address]Klv: 330 [id number] [phone] (HP) Date:0428-10-58ZO [address] [address]CG: 03/03/2018 Secondary NOT GIVENUNK [place] Insurance:SELF PAY [facility] Number: Effective Repository Date:2018-02-25 02/25/2018 BARON Primary CORI Tucker [id number] Insurance:CARESOURCE FORTNERDOB: [facility] JUST [place] 221444-07-23[place] Number: Repository [address]Wmx: 330 [id number] [phone] (HP) Date:9264-15-64OJ [address] [address]MI: 02/25/2018 Secondary NOT GIVENUNK [place] Insurance:SELF PAY [facility] Number: Effective Repository Date:2018-02-25 02/25/2018 BARON Primary CORI Tucker [id number] Insurance:CARESOURCE FORTNERDOB: [facility] JUST [place] 221444-07-23[place] Number: Repository [address]Wgw: 330 [id number] [phone] (HP) Date:6090-21-94HE [address] [address]NJ: 02/25/2018 Secondary NOT GIVENUNK [place] Insurance:SELF PAY [facility] Number: Effective Repository Date:2018-02-25 02/18/2018 BARON Primary CORI Tucker [id number] Insurance:CARESOURCE FORTNERDOB: Community [facility] [address] Number: Repository [address]Env: 330 [id number] [phone] (HP) Date:5192-57-83DE [address] [address]IZ: 02/18/2018 Secondary NOT GIVENUNK [place] Insurance:SELF PAY [facility] Number: Effective Repository Date:2018-02-18 02/14/2018 BARON Primary CORI Tucker [id number] Insurance:CARESOURCE FORTNERDOB: [facility] KAREN [address] Number: Repository [address]Too: 330 [id number] [phone] () Date:7237-40-77HP [address] [address]FQ: 02/14/2018 Secondary NOT GIVENUNK [place] Insurance:SELF PAY [facility] Number: Effective Repository Date:2018-02-13 02/13/2018 BARON Primary CORI Higgins Caitlin [id number] Insurance:CARESOURCE FORTNERDOB: [facility] KAREN[address] Number: Repository [address]Pdm: 330 [id number] [phone] () Date:9531-70-58KZ [address] [address]FM: 02/13/2018 Secondary NOT GIVENUNK [place] Insurance:SELF PAY [facility] Number: Effective Repository Date:2018-02-13 02/13/2018 BARON Primary CORI Higgins [place] [id number] Insurance:CARESOURCE FORTNERDOB: Community [facility] JUST FOR [facility] 5059-80-09CIXL[place] Number: Repository [address]Dxj: 330 [id number] [phone] (HP) Date:8300-07-74OB [address] [address]UV: 02/13/2018 Secondary NOT GIVENUNK [place] Insurance:SELF PAY [facility] Number: Effective Repository Date:2018-02-13 02/11/2018 BARON Primary BARON Caitlin [id number] Insurance:CARESOURCE FORTNERDOB: Community [facility] JUST FOR [facility] 2266-85-43YUXL[place] Number: Repository 278[address]Lxj: 330 [id number] [phone] (HP) Date:7016-13-50UU [address] [address]MO: 02/11/2018 Secondary NOT GIVENUNK [place] Insurance:SELF PAY [facility] Number: Effective Repository Date:2018-02-07 02/10/2018 BARON Primary BARON Caitlin [id number] Insurance:CARESOURCE FORTNERDOB: [facility] JUST FOR [facility] 3942-36-53[place]URL[place] Number: Repository [address]Nmd: 330 [id number] [phone] () Date:8032-76-15RI [address] [address]EV: 02/10/2018 Secondary NOT GIVENUNK [place] Insurance:SELF PAY [facility] Number: Effective Repository Date:2018-02-07 01/31/2018 BARON Primary BARON [place] [id number] Insurance:CARESOURCE FORTNERDOB: Community [facility] JUST FOR [place] [id number], [place] Number: Repository [address]Vhk: 330 [id number] [phone] (HP) Date:0233-44-20IN [address] [address]AT: 01/31/2018 Secondary NOT GIVENUNK [place] Insurance:SELF PAY [facility] Number: Effective Repository Date:2018-01-27 01/27/2018 CORI AGUIRRE Primary CORI Tucker [id number] Insurance:CARESOSTEPHANI FUENTESB: Community [facility] 4296-99-88UHALakes[place] Number: Repository 15461Yzt: (193) [id number] [phone] () Date:6716-18-20ME[address] [address]JF: 01/27/2018 Secondary NOT GIVENUNK [place] Insurance:SELF PAY [facility] Number: Effective Repository Date:2018-01-27
== END ==
PROVIDERS: Family Provider Family Medicine; PCP Family Medicine; Referring Provider Nurse Practitioner Family; Visit Provider Nurse Practitioner Family
DX: M79.89 Other specified soft tissue disorders (principal); C82.20 Follicular lymphoma grade III, unspecified, unspecified site
CPT/HCPCS: 93971

== ENCOUNTER → 2018-04-02 10:09 | Outpatient (CLI) | payer OTHER, SELFPAY ==
[2018-04-02 09:00] VITALS: BMI 31.2
--- NOTE | 2018-04-02 10:33 | RAD_ITS ---
STUDY: X-RAY CHEST REASON FOR EXAM: Female, 62 years old. Lymphoma. Dyspnea. TECHNIQUE: Frontal and lateral views of the chest. COMPARISON: 03/19/2018. FINDINGS: Mediport catheter terminates in the mid SVC. Small right pleural effusion with mild atelectasis. Moderate to large left pleural effusion with significant atelectasis or infiltrate in the lower left lung. Heart size cannot be assessed. Normal mediastinum and alex. Normal visualized pulmonary arteries. Normal visualized aortic arch and descending thoracic aorta. There are diffuse degenerative changes of the visualized thoracic spine. Normal visualized ribs, clavicles, and shoulders. There is no demonstrated abnormality of the visualized soft tissue structures of the upper abdomen. RAD/Chest PA and Lateral IMPRESSION: Bilateral pleural effusions especially on the left with probable prominent atelectasis or infiltrate in the lower left lung. Electronically Signed: Josse Dunn MD at 16:55 EST , Service support ,
--- OUTSIDE RECORDS SUMMARY | 2018-07-04 13:54 | XMS RPT_ITS ---
:1955 Author Organization OHIP Support Name Relationship Address Phone VALENTIN GLORIA Unavailable [address] + [place] [address] UE Unavailable Unavailable Unavailable VALENTIN, GLORIA Unavailable [address] + [place] [address] UE Unavailable Unavailable Unavailable VALENTIN, GLORIA Unavailable [address] + [place] [address] UE Unavailable Unavailable Unavailable VALENTIN, GLORIA Unavailable [address] [place] [address] RD + [place] [address] UE Unavailable Unavailable Unavailable VALENTIN, GLORIA Unavailable [address] + [place] [address] UE Unavailable Unavailable Unavailable VALENTIN, GLORIA Unavailable [address] + [place] [address] UE Unavailable Unavailable Unavailable VALENTIN, GLORIA Unavailable [address] + [place] [address] UE Unavailable Unavailable Unavailable VALENTIN, GLORIA Unavailable [address] + [place] [address] UE Unavailable Unavailable Unavailable VALENTIN, GLORIA Unavailable [address] + [place] [address] UE Unavailable Unavailable Unavailable VALENTIN, GLORIA Unavailable [address] + [place] [address] UE Unavailable Unavailable Unavailable VALENTIN, GLORIA Unavailable [address] + [place] [address] UE Unavailable Unavailable Unavailable VALENTIN, GLORIA Unavailable [address] + [place] [address] UE Unavailable Unavailable Unavailable VALENTIN, GLORIA Unavailable [address] + [place] [address] UE Unavailable Unavailable Unavailable VALENTIN, GLORIA Unavailable [address] + [place] [address] UE Unavailable Unavailable Unavailable VALENTIN, GLORIA Unavailable [address] + [place] [address] UE Unavailable Unavailable Unavailable VALENTIN, GLORIA Unavailable [address] + [place] [address] UE Unavailable Unavailable Unavailable VALENTIN, GLORIA Unavailable [address] + [place] [address] UE Unavailable Unavailable Unavailable VALENTIN, GLORIA Unavailable [address] + [place] [address] UE Unavailable Unavailable Unavailable VALENTIN, GLORIA Unavailable [address] + [place] [address] UE Unavailable Unavailable Unavailable VALENTIN, GLORIA Unavailable [address] + [place] [address] UE Unavailable Unavailable Unavailable VALENTIN, GLORIA Unavailable [address] + [place] [address] UE Unavailable Unavailable Unavailable VALENTIN, GLORIA Unavailable [address] + [place] [address] UE Unavailable Unavailable Unavailable VALENTIN, GLORIA Unavailable [address] + [place] [address] UE Unavailable Unavailable Unavailable VALENTIN, GLORIA Unavailable [address] + [place] [address] UE Unavailable Unavailable Unavailable VALENTIN, GLORIA Unavailable [address] + [place] [address] UE Unavailable Unavailable Unavailable VALENTIN, GLORIA Unavailable [address] + [place] [address] UE Unavailable Unavailable Unavailable VALENTIN, GLORIA Unavailable [address] + [place] [address] UE Unavailable Unavailable Unavailable VALENTIN, GLORIA Unavailable [address] + [place] [address] UE Unavailable Unavailable Unavailable VALENTIN, GLORIA Unavailable [address] + [place] [address] UE Unavailable Unavailable Unavailable VALENTIN, GLORIA Unavailable [address] + [place] [address] UE Unavailable Unavailable Unavailable VALENTIN, GLORIA Unavailable [address] [place] [address] RD + [place] [address] UE Unavailable Unavailable Unavailable VALENTIN, GLORIA Unavailable [address] [place] [address] RD + [place] [address] UE Unavailable Unavailable Unavailable VALENTIN, GLORIA Unavailable [address] [place] [address] RD + [place] [address] UE Unavailable Unavailable Unavailable VALENTIN, GLORIA Unavailable [address] [place] [address] RD + [place] [address] UE Unavailable Unavailable Unavailable VALENTIN, GLORIA Unavailable [address] [place] [address] RD + [place] [address] UE Unavailable Unavailable Unavailable VALENTIN, GLORIA Unavailable [address] [place] [address] RD + [place] [address] UE Unavailable Unavailable Unavailable VALENTIN, GLORIA Unavailable [address] [place] [address] RD + [place] [address] UE Unavailable Unavailable Unavailable VALENTIN, GLORIA Unavailable [address] [place] [address] RD + [place] [address] UE Unavailable Unavailable Unavailable VALENTIN, GLORIA Unavailable [facility] [address] + [place] [address] UE Unavailable Unavailable Unavailable VALENTIN, GLORIA Unavailable [facility] [address] + [place] [address] UE Unavailable Unavailable Unavailable VALENTIN, GLORIA Unavailable [address] + [place] [address] UE Unavailable Unavailable Unavailable Care Team Providers Name Role Phone Mer Bain Attending Unavailable Catina Tanner Primary Care Unavailable Sam Aiken Consulting Unavailable Mer Bain Attending Unavailable Mer Bain Referring Unavailable Catina Tanner Primary Care Unavailable SchCatina quiros Consulting Unavailable Steven Marcial Consulting Unavailable Belia Rueda Consulting Unavailable Odell, Mer Attending Unavailable Alfred Ruiz D.O. Referring Unavailable Matias Tapia Attending Unavailable Sam Aiken Referring Unavailable Odell, Mer Attending Unavailable Odell, Mer Referring Unavailable Catina Tanner Primary Care Unavailable Odell, Mer Attending Unavailable Catina Tanner Primary Care Unavailable SunnikarSam gallagher Consulting Unavailable Odell, Mer Attending Unavailable Odell, Mer Referring Unavailable Catina Tanner Primary Care Unavailable Matias Tapia Attending Unavailable Catina Tanner Referring Unavailable Matias Tapia Attending Unavailable Elmer Vuong Referring Unavailable Thomas Castro Attending Unavailable Apolonia Moe Referring Unavailable Catina Tanner Primary Care Unavailable Killian Lacy Attending Unavailable Catina Tanner Attending Unavailable Catina Tanner Referring Unavailable Catina Tanner Primary Care Unavailable Catina Tanner Attending Unavailable Catina Tanner Referring Unavailable Catina Tanner Primary Care Unavailable Catina Tanner Attending Unavailable Catina Tanner Referring Unavailable Catina Tanner Primary Care Unavailable Veronica, Mukesh Attending Unavailable Catina Tanner Referring Unavailable Cebuotoniel, Mukesh Attending Unavailable Catina Tanner Referring Unavailable Cebul, Mukesh Attending Unavailable CeMukesh soto Referring Unavailable Catina Tanner Primary Care Unavailable Cecharles, Mukesh Attending Unavailable CeMukesh soto Referring Unavailable Catina Tanner Primary Care Unavailable Catina Tanner Attending Unavailable Catina Tanner Primary Care Unavailable Sam Aiken Attending Unavailable Catina Tanner Primary Care Unavailable Cecharles, Mukesh Attending Unavailable Catina Tanner Referring Unavailable Sam Aiken Attending Unavailable Catina Tanner Primary Care Unavailable Nelli, Sam Consulting Unavailable Catina Tanner Referring Unavailable Sam Aiken Attending Unavailable Catina Tanner Primary Care Unavailable Isckarus, Clarisseour Referring Unavailable Iscfadius, Sam Attending Unavailable Nelli, Sam Referring Unavailable Catina Tanner Primary Care Unavailable Catina Tanner Attending Unavailable Catina Tanner Referring Unavailable Schinner, Catina E Primary Care Unavailable Veronica Mukesh Attending Unavailable Cebul, Mukesh Referring Unavailable Schinner, Catina E Primary Care Unavailable Ivanus, Clarisseour Attending Unavailable Schinner, Catina E Primary Care Unavailable Isckarus, Mansour Consulting Unavailable Veronica Mukesh Attending Unavailable Cebul, Mukesh Referring Unavailable Schinner, Catina E Primary Care Unavailable Cegiselel, Mukesh Consulting Unavailable Schinner, Catina E Primary Care Unavailable Koram, Apolonia Alma Admitting Unavailable Koram, Apolonia Alma Referring Unavailable Alfred Ruiz D.O. Consulting Unavailable Elmer Vuong Attending Unavailable Willie, Matias Consulting Unavailable Isckarus, Mansour Consulting Unavailable Koram, Apolonia Alma Admitting Unavailable Koram, Apolonia Alma Attending Unavailable Koram, Apolonia Alma Referring Unavailable Schinner, Catina E Primary Care Unavailable Koram, Apolonia Alma Consulting Unavailable Isckarus, Clarisseour Attending Unavailable Schinner, Catina E Primary Care Unavailable Isckarus, Mansour Consulting Unavailable Schinner, Catina E Referring Unavailable Mer Bain Attending Unavailable Schinner, Catina E Primary Care Unavailable Isckarus, Mansour Consulting Unavailable Schinner, Catina E Referring Unavailable Isckarus, Clarisseour Attending Unavailable Schinner, Catina [...] Unavailable Alfred Ruiz D.O. Consulting Unavailable Willie, [place] Consulting Unavailable Elmer Vuong Consulting Unavailable Koram, Apolonia Alma Admitting Unavailable Willie, [place] Attending Unavailable Koram, Apolonia Alma Referring Unavailable Schinner, Catina E Primary Care Unavailable Alfred Ruiz D.O. Consulting Unavailable Willie, [place] Consulting Unavailable Elmer Vuong Consulting Unavailable Koram, [...] Matias Consulting Unavailable Isckarus, Mansour Consulting Unavailable KitElmer griffiths Consulting Unavailable Koram, Apolonia Alma Admitting Unavailable Alfred Ruiz D.O. Attending Unavailable Koram, Apolonia Alma Referring Unavailable Catina Tanner Primary Care Unavailable Alfred Ruiz D.O. Consulting Unavailable Willie, [place] Consulting Unavailable Isckarus, Mansour Consulting Unavailable Kittoe, Elmer Consulting Unavailable Koram, Apolonia Alma Admitting Unavailable Koram, Apolonia Alma Referring Unavailable Catina Tanner Primary Care Unavailable Alfred Ruiz D.O. Consulting Unavailable Elmer Vuong Attending Unavailable Willie, Matias Consulting Unavailable Isckarus, Mansour Consulting Unavailable Elmer Vuong Consulting Unavailable Isckarus, Mansour Attending Unavailable Catina Tanner Primary Care Unavailable Isckarus, Mansour Consulting Unavailable PROBLEMS PROBLEMS DATE TYPE CONDITION / CODE ATTENDING STATUS SOURCE 05/09/2018 Unknown C82.24 - Follicular Isckarus, Active [place] lymphoma grade III, [place] Community unspecified, lymph Hospital nodes of axilla and Repository upper limb / C82.24(ICD-10) 05/01/2018 Unknown C82.20 - Follicular Odell, Active [place] lymphoma grade III, Mer Community unspecified, Hospital unspecified site / Repository C82.20(ICD-10) 05/01/2018 Unknown Z79.899 - Other long Odell, Active [place] term (current) drug [facility] therapy / Hospital Z79.899(ICD-10) Repository 04/02/2018 Unknown R06.09 - Other forms Odell, Active [place] of dyspnea / Mer Community R06.09(ICD-10) Hospital Repository 04/02/2018 Unknown R06.89 - Other Odell, Active [place] abnormalities of Mer Community breathing / Hospital R06.89(ICD-10) Repository 04/02/2018 Unknown J90 - Pleural Odell, Active [place] effusion, not Mer Community elsewhere classified / Hospital J90(ICD-10) Repository 04/02/2018 Unknown Z01.812 - Encounter Odell, Active [place] for preprocedural Mer [facility] laboratory examination Hospital / Z01.812(ICD-10) Repository 04/02/2018 Unknown Z01.818 - Encounter Odell, Active [place] for other Mer Community preprocedural Hospital examination / Repository Z01.818(ICD-10) 04/07/2018 Unknown R94.31 - Abnormal [place], Active [place] electrocardiogram [facility] [ECG] [EKG] / Hospital R94.31(ICD-10) Repository 04/07/2018 Unknown I11.0 - Hypertensive [place], Active [place] heart disease with [facility] heart failure / Hospital I11.0(ICD-10) Repository 04/07/2018 Unknown I50.31 - Acute [place], Active [place] diastolic (congestive) [facility] heart failure / Hospital I50.31(ICD-10) Repository 04/18/2018 Unknown I21.4 - Non-ST [place]daliaElmer Active [place] elevation (NSTEMI) [facility] myocardial infarction Hospital / I21.4(ICD-10) Repository 03/14/2018 Unknown G89.18 - Other acute CebuMukesh frederick Active [place] postprocedural pain / [facility] G89.18(ICD-10) Hospital Repository 02/14/2018 Unknown R59.1 - Generalized CebuMukesh frederick Active [place] enlarged lymph nodes / [facility] R59.1(ICD-10) Hospital Repository 02/13/2018 Unknown C85.90 - Non-Hodgkin CebulMukesh Active [place] lymphoma, unspecified, Community unspecified site / Hospital C85.90(ICD-10) Repository PROCEDURES PROCEDURES No Procedure Records FoundRESULTS RESULTS ONCOLOGY VISIT REPORT Observed: 05/08/2018 Status: F Source: [place] 9:29 AM [facility] HOSPITAL REPOSITORY [facility] [place] [address] OFFICE VISIT Date of Service: 05/08/18 0906 MR#: [id number] Acct: [id number] Name: CORI CORRIGAN Rep #: [id number] : 1955 From: Sam Aiken MD Age/Sex: 62/F Location: OMD Status: Signed - Problem List (1) Follicular lymphoma grade III Status: Chronic Qualifiers: Lymphoma site: axillary Qualified Code(s): C82.24 - Follicular lymphoma grade III, unspecified, lymph nodes of axilla and upper limb (2) Breast nodule Status: Suspected - Date of Service Date of Service:: 05/08/18 - Chief Complaint Lymphoma on treatment - [...] CD138 (B-A38) negative BCL-2 (bcl-2/100/D5) positive BCL-6 (LN295L/A8) positive Cyclin D1/BCL-1 (SP4) negative [place] (polyclonal) negative Lambda (polyclonal) negative MUM1 (MRQ-43) [...] Former smoker Review of Systems Constitutional:: Reports: Weakness, [...] Ideations, Suicidal Ideations Comment: Enlarged lymph nodes in the neck resolve Vital Signs Height 5 ft 2 in Weight: 70.942 kg Weight in Pounds 156.4 lbs Pulse Ox [...] lymphadenopathy, Supraclavicular lymphadenopathy, Axillary lymphadenopathy Laboratory Data: CBC, CMP reviewed in EMR Diagnostic Data: Diagnostic Data PET, [...] and ovarian cancer (mother) and lymphoma (brother ) Plan: 1. Systemic chemotherapy with R CHOP support with Neulasta start cycle 3/. 2. Assessment of disease response to treatment prior to cycle 4 Patient was seen was her , impression and plan discussed. Medications: Prescriptions This Visit Medication Instructions Recorded Multivitamin [Multiple Vitamins] 1 tab PO DAILY 02/25/18 Primary Care Provider: Catina Tanner MD Referring Provider: 05/08/18 0929 <Electronically signed by Sam Aiken MD> Date Sam Aiken MD Cosigner Signature: Date (if applicable) CC: CBC W/DIFF, AUTOMATED Collected: 05/08/2018 Status: F Source: [place] 8:33 AM [facility] REPOSITORY TYPE CODE TESTS RESULT OUT OF RANGE REFERENCE UNITS LAB L100.1000 4.4-11.0 K/mm3 Normal WBC 9.9 LAB L100.1200 4.2-5.4 M/mm3 Low RBC 3.58 LAB L100.1300 12.0-15.0 g/dl Low HGB 10.8 LAB L100.1400 37-47 % Low HCT 32.8 LAB L100.1500 81-99 fL Normal MCV 91.6 LAB L100.1600 27.0-32.0 pg Normal MCH 30.2 LAB L100.1700 32-36 g/gl Normal MCHC 32.9 LAB L100.1810 11.6-14.6 % High RDW CV 15.5 LAB L100.1820 35.1-43.9 fl High RDW SD 49.9 LAB L100.1900 150-450 K/mm3 Normal PLT 407 LAB L100.2000 6.2-12.0 fl Normal MPV 11.5 LAB L100.2100 47-70 % High NEUT% 93.6 LAB L100.2200 19-41 % Low LY% 4.0 LAB L100.2300 0-10 % Normal MONO% 1.9 LAB L100.2400 0-5 % Normal EO% 0.1 LAB L100.2500 0-1 % Normal BASO% 0.3 LAB L100.2550 0.0-0.9 % Normal IM GRAN % 0.100 Result Comment: IG% - Immature Granulocytes (promyelocytes, myelocytes and metamyelocytes) > 1% indicates that a LEFT SHIFT is Present. LAB L100.2620 2.0-7.7 X10 3/uL High Absolute Neut 9.2 LAB L100.2720 0.83-4.51 X10 3/ul Low Absolute Lymph 0.39 LAB L100.4500 Normal SMEAR COMMENT SCANNED Performed By: #### L100.0100 #### [facility] [address] [place], [address] COMPREHENSIVE METABOLIC Collected: 05/08/2018 Status: F Source: [place] [facility] 12:00 AM [facility] REPOSITORY Order Comment: Serial Specimen #1, #2 or #3? 1 TYPE CODE TESTS RESULT OUT OF RANGE REFERENCE UNITS LAB L501.0100 74-106 mg/dL Normal GLU 97 Result Comment: Please note revised GLUCOSE reference range effective 2017. LAB L501.1000 7-18 mg/dL Normal BUN 16 LAB L501.1100 0.55-1.02 mg/dL Normal CREAT,SERUM 0.64 Result Comment: The validity of the calculated GFR AND GFRAA in patients over 70 years has not been determined. Clinical correlation is essential. LAB L501.1110 >60 mL/min Normal EST GFR 98 Result Comment: Non- GFR Calc LAB L501.1115 >60 mL/min Normal EST GFR - AA 119 Result Comment: GFR Calc LAB L501.1255 ml/min Normal Estimated CRCL 70.24 LAB L501.1300 10-20 RATIO High BUN/CRE 24.8 LAB L501.1500 6.4-8. g/dL Normal 2 T PROT 6.5 LAB L501.1800 3.2-5. g/dL Normal 0 ALB 3.2 LAB L501.1950 2.2-4. g/dL Normal 2 GLOB 3.3 LAB L501.2000 0.9-2. RATIO Normal 4 A/G 1.0 LAB L501.2200 8.5-10 mg/dL Normal .1 CA 10.0 LAB L501.4100 15-37 U/L Low AST 14 LAB L501.4305 45-117 U/L Normal ALK P 105 LAB L501.4405 13-56 U/L Normal ALT 19 LAB L501.4600 0.20-1 mg/dL Normal .00 T BILI 0.20 LAB L501.5300 136-14 mmol/L Normal 5 NA 141 LAB L501.5600 3.5-5. mmol/L Normal 1 K 4.3 LAB L501.5900 98-107 mmol/L Normal CL 107 LAB L501.6100 21.0-3 mmol/L Normal 2.0 CO2 27.0 LAB L501.6200 5-15 Normal GAP 7 Performed By: #### L500.4050, L501.1400, L504.2610 #### [facility] [place], [address] URIC ACID Collected: 05/08/2018 Status: F Source: [place] 12:00 AM [facility] REPOSITORY Order Comment: Serial Specimen #1, #2 or #3? 1 TYPE CODE TESTS RESULT OUT OF RANGE REFERENCE UNITS LAB L501.1400 2.6-6.0 mg/dL Normal URIC 4.5 Result Comment: The drugs N-Acetylcysteine and Metamizole may falsely depress this assay. Performed By: #### L500.4050, L501.1400, L504.2610 #### [facility] [address] [place], [address] LDH Collected: 05/08/2018 Status: F Source: [place] 12:00 AM [facility] REPOSITORY Order Comment: Serial Specimen #1, #2 or #3? 1 TYPE CODE TESTS RESULT OUT OF RANGE REFERENCE UNITS LAB L504.2610 84-246 U/L Normal LDH 124 Performed By: #### L500.4050, L501.1400, L504.2610 #### [facility] [address] [place], [address] ONCOLOGY VISIT REPORT Observed: 04/28/2018 Status: F Source: [place] 11:11 AM [facility] REPOSITORY [facility] [address] [place] [address] OFFICE VISIT Date of Service: 04/28/18 1030 MR#: [id number] Acct: [id number] Name: CORI CORRIGAN Rep #: [id number] : 1955 From: Mer KELLY Age/Sex: 62/F [...] CD138 (B-A38) negative BCL-2 (bcl-2/100/D5) positive BCL-6 (BI008D/A8) positive Cyclin D1/BCL-1 (SP4) negative [place] (polyclonal) negative Lambda (polyclonal) negative MUM1 (MRQ-43) [...] sooner if issues arise. Mer Bain, MSN, MEAT CUTTER-C, AOCNP Medications: Prescriptions This Visit Medication Instructions [...] edema 04/28/18 1111 <Electronically signed by Mer Bain BUSINESS PLANNER-C> Date Mer Odell BUSINESS PLANNER-C Cosigner Signature: Date (if applicable) CC: CBC W/DIFF, AUTOMATED Collected: 04/28/2018 Status: F Source: [place] 9:43 AM [facility] REPOSITORY Order Comment: Reason for Laboratory Test [...] Lymph 1.34 Performed By: #### L100.0100 #### [facility] [address] [place], [address] ONCOLOGY VISIT REPORT Observed: 04/17/2018 Status: F Source: [place] 9:06 AM [facility] REPOSITORY [facility] [place] [facility] [address] [place] [address] OFFICE VISIT Date of Service: 04/17/18 0842 MR#: [id number] Acct: [id number] Name: CORI CORRIGAN Rep #: [id number] : 1955 From: Sam Aiken MD Age/Sex: [...] CD138 (B-A38) negative BCL-2 (bcl-2/100/D5) positive BCL-6 (LL338M/A8) positive Cyclin D1/BCL-1 (SP4) negative [place] (polyclonal) negative Lambda (polyclonal) negative MUM1 (MRQ-43) [...] R CHOP support with Neulasta start cycle 05/21. Patient was seen was her , impression [...] 04/17/2018 Status: F Source: [place] 7:57 AM [facility] REPOSITORY TYPE CODE TESTS RESULT OUT OF [...] Lymph 0.99 Performed By: #### L100.0100 #### [facility] [address] [place], [address] COMPREHENSIVE METABOLIC Collected: 04/17/2018 Status: F Source: [facility] 7:57 AM [facility] REPOSITORY TYPE CODE TESTS RESULT OUT OF [...] Performed By: #### L500.4050, L501.1400, L504.2610 #### [facility] [address] [facility] [place], [place], [id number] URIC ACID Collected: 04/17/2018 Status: F Source: [place] 7:57 AM [facility] REPOSITORY TYPE CODE TESTS RESULT OUT OF RANGE REFERENCE UNITS LAB L501.1400 2.6-6.0 mg/dL Normal URIC 4.0 Result Comment: The drugs N-Acetylcysteine and Metamizole may falsely depress this assay. Performed By: #### L500.4050, L501.1400, L504.2610 #### [facility] [address] [place], [place], [address] LDH Collected: 04/17/2018 Status: F Source: [place] 7:57 AM [facility] REPOSITORY TYPE CODE TESTS RESULT OUT OF RANGE REFERENCE UNITS LAB L504.2610 84-246 U/L Normal LDH 154 Performed By: #### L500.4050, L501.1400, L504.2610 #### [facility] [address] [place], [place], [address] EMERGENCY DEPARTMENT Observed: 04/14/2018 Status: F Source: [place] SUMMARY 12:13 AM [facility] REPOSITORY [facility] Medical Records Department [address] [place] [address] Emergency Department Summary 04/14/18 0009 MR#: [id number] Acct: [id number] Name: CORI CORRIGAN Rep #: [id number] : 1955 62 From: Killian Lacy MD [...] Treatment Plan: Right naris was anesthetized using Stella solution. A 7.5 cm posterior Rhino Rocket was placed since blood was noted above the inferior turbinate. There is no active bleeding or evidence of recent bleeding over Calci-Mix plexus. Disposition: Patient was ambulated. There is no further bleeding. Impression: Epistaxis right This note was generated with [employer] dictation software. It may contain incorrect words, [...] the amoxicillin until gone. Call Dr. Addison Villalobos's office in the morning to be seen on Saturday. What to do if you have Problems For any increased pain, shortness of breath, bleeding, nausea or vomiting, chest pain, or any unexpected problems, contact your Primary Care Provider. Call [facility] ([phone]) or report to the closest Emergency Room. Call 911 if necessary. 04/14/18 0013 <Electronically signed by Killian Lacy MD> Date Killian Lacy MD Cosigner Signature (If Indicated): Date CC: Catina Tanner MD CBC W/DIFF, AUTOMATED Collected: 04/13/2018 Status: F Source: [place] 8:20 PM [facility] REPOSITORY TYPE CODE TESTS RESULT OUT OF [...] COMMENT SCANNED Performed By: #### L100.0100 #### [facility] [address] [facility] [place], [address] CARDIOLOGY VISIT Observed: 04/04/2018 Status: F Source: [place] REPORT 12:57 PM [facility] REPOSITORY [facility] [address] [place] [address] OFFICE VISIT Date of Service: 04/04/18 MR#: [id number] Acct: [id number] Name: CORI CORRIGAN Rep #: [id number] : 1955 Provider: Matias Tapia MD Age/Sex: 62/F [place] [facility] [place]: Signed HPI HPI Chief Complaint: Follow-up visit Details: CORI CORRIGAN, is a 62 F who [...] PO DAILY 02/25/18 [History Confirmed 04/04/18] Hydrocodone/Acetaminophen [Bryant 5-325 Tablet] 1 tab PO PRN PRN [...] mg PO DAILY PRN tab 04/04/18 [History] [facility] Medical History Acute diastolic (congestive) heart failure [...] signed by Matias Tapia MD> Date Matias Stanley Signature: Date (if applicable) CC: Catina Tanner MD CHEST INSP/EXP 2 VIEW Observed: 04/03/2018 Status: F Source: [place] 2:57 PM [facility] REPOSITORY [facility] Imaging Services [address] [place] [address] Chest Insp/Exp 2 View MR#: [id number] Acct: [id number] Name: CORI CORRIGAN Rep #: [id number] : 1955 F 62 From: Denny Juarez MD PCP: Catina Tanner MD Status: REG CLI Study: Chest Insp/Exp 2 View Date of Exam: 04/03/18 Exam# [id number] Ordering Dr: Denny Juarez MD STUDY: X-RAY [...] Denny Juarez MD at 15:06 EST Tel [phone], Service support , CC: Denny Juarez MD; Catina Tanner MD Pharmacy Cashier: Signed THORACENTESIS W US Observed: 04/03/2018 Status: F Source: [place] 2:17 PM [facility] REPOSITORY [facility] Imaging Services [address] [place] [address] Thoracentesis W US MR#: [id number] Acct: [id number] Name: CORI CORRIGAN Rep #: [id number] : 1955 F 62 From: Denny Juarez MD PCP: Catina Tanner MD Status: REG CLI Study: Thoracentesis W US Date of Exam: 04/03/18 Exam# [id number] Ordering Dr: Mer Bain BUSINESS PLANNERMarcio PROCEDURE: ULTRASOUND GUIDED THORACENTESIS. DATE: April 03, [...] local anesthesia. Under ultrasound guidance, a 5 Belizean thoracentesis needle/catheter system was advanced into the left posterior lower pleural fluid collection. Approximately 1850 mL of mary-colored fluid was drained. The catheter was removed, and a sterile dressing was applied. The patient tolerated the procedure well. A chest x-ray was ordered. US/Thoracentesis W US IMPRESSION: Ultrasound-guided left thoracentesis. Electronically Signed: Denny Juarez MD at 16:00 EST Tel [phone], Service support , CC: Catina Tanner MD; Mer Bain NP Pharmacy Cashier: Signed CBC W/DIFF, AUTOMATED Collected: 04/03/2018 Status: F Source: [place] 2:01 PM [facility] REPOSITORY Order Comment: Reason for Laboratory Test [...] Lymph 1.26 Performed By: #### L100.0100 #### [facility] [address] [place], [address] PROTHROMBIN TIME W/INR Collected: 04/03/2018 Status: F Source: [place] 2:01 PM [facility] REPOSITORY Order Comment: Reason for Laboratory Test . TYPE CODE TESTS RESULT OUT OF RANGE REFERENCE UNITS LAB L300.4150 11.7-14.9 SECONDS Normal PROTIME 13.4 LAB L300.4200 Normal INR 1.0 Performed By: #### L300.3900, L300.4310 #### [facility] [address] [place], [address] PARTIAL THROMBOPLAST Collected: 04/03/2018 Status: F Source: [place] TIME 2:01 PM [facility] REPOSITORY Order Comment: Reason for Laboratory Test . TYPE CODE TESTS RESULT OUT OF RANGE REFERENCE UNITS LAB L300.4310 24.1-36.2 Seconds Normal PTT 31.0 Performed By: #### L300.3900, L300.4310 #### [facility] [address] [place], [address] ONCOLOGY VISIT REPORT Observed: 04/02/2018 Status: F Source: [place] 2:33 PM [facility] REPOSITORY [facility] Medical Oncology [facility] [place] [address] OFFICE VISIT Date of Service: 04/02/18 0903 MR#: [id number] Acct: [id number] Name: CORI CORRIGAN Rep #: [id number] : 1955 From: Mer KELLY Age/Sex: 62/F [...] CD138 (B-A38) negative BCL-2 (bcl-2/100/D5) positive BCL-6 (VC982T/A8) positive Cyclin D1/BCL-1 (SP4) negative [place] (polyclonal) negative Lambda (polyclonal) negative MUM1 (MRQ-43) [...] Signature Germán Milner D.O. Electronically Signed: Germán Milner, at 22:33 EST Tel , Service support [...] sooner if issues arise. Mer Bain, MSN, MEAT CUTTER-C, AOCNP Medications: Prescriptions This Visit Medication Instructions Recorded Multivitamin [Multiple Vitamins] 1 tab PO DAILY 02/25/18 Ondansetron [Zofran] 8 mg PO Q8H PRN 10 Days #30 tablet 03/24/18 Primary Care Provider: Catina Tanner MD Referring [...] AND LATERAL Observed: 04/02/2018 Status: F Source: [place] 10:34 AM [facility] REPOSITORY [facility] Imaging Services [address] [place] [address] Chest PA and Lateral MR#: [id number] Acct: [id number] Name: CORI CORRIGAN Rep #: [id number] : 1955 F 62 From: Josse Dunn MD PCP: Catina Tanner MD Status: REG CLI Study: Chest PA and Lateral Date of Exam: 04/02/18 Exam# [id number] Ordering Dr: Mer Bain STUDY: X-RAY CHEST [...] CC: Catina Tanner MD; Mer Bain NP Pharmacy Cashier: Signed CBC W/DIFF, AUTOMATED Collected: 04/02/2018 Status: C Source: [place] 8:15 AM [facility] REPOSITORY Order Comment: Reason for Laboratory Test [...] 04/03/18 1054 PATH REV previously reported as: August peter Performed By: #### L100.0100 #### [facility] [address] [place], [address] COMPREHENSIVE METABOLIC Collected: 04/02/2018 Status: F Source: [facility] 8:15 AM [facility] REPOSITORY Order Comment: Reason for Laboratory Test [...] Performed By: #### L500.4050, L501.1400, L504.2610 #### [facility] [address] [facility]. [place], [place], [address] URIC ACID Collected: 04/02/2018 Status: F Source: [place] 8:15 AM [facility] REPOSITORY Order Comment: Reason for Laboratory Test . Serial Specimen #1, #2 or #3? 1 TYPE CODE TESTS RESULT OUT OF RANGE REFERENCE UNITS LAB L501.1400 2.6-6.0 mg/dL Normal URIC 5.1 Result Comment: The drugs N-Acetylcysteine and Metamizole may falsely depress this assay. Performed By: #### L500.4050, L501.1400, L504.2610 #### [facility] [address] [place], [address] LDH Collected: 04/02/2018 Status: F Source: [place] 8:15 AM [facility] REPOSITORY Order Comment: Reason for Laboratory Test . Serial Specimen #1, #2 or #3? 1 TYPE CODE TESTS RESULT OUT OF RANGE REFERENCE UNITS LAB L504.2610 84-246 U/L Normal LDH 204 Performed By: #### L500.4050, L501.1400, L504.2610 #### [facility] [address] [place], [address] VENOUS DUPLEX LOWER Observed: 03/29/2018 Status: F Source: [place] EXTREMITY 1:39 PM [facility] REPOSITORY [facility] Cardiovascular Services [address] [address] Venous Duplex US, Unilateral 03/26/18 1606 MR#: [id number] Acct: [id number] Name: CORI CORRIGAN Rep #: [id number] : 1955 62 From: Arnol Bundy MD Attending Dr: Mer Bain NP Status: REG CLI Ordering Dr: Mer Bain BUSINESS PLANNER-C Date: 03/26/18 Location: [facility] Sex: F C [...] Mer Bain Performed By: Yisel Murdock RVT 03/29/188 Date Arnol Bundy MD CC: Catina Tanner MD; Mer Bain BUSINESS PLANNER Date Dictated: 03/26/18 1606 Date Transcribed: 03/29/181337 Pharmacy Cashier: Signed ONCOLOGY VISIT REPORT Observed: 03/24/2018 Status: F Source: [place] 3:47 PM [facility] Medical Oncology [facility] [place] [address] OFFICE VISIT Date of Service: 03/24/18 1537 MR#: [id number] Acct: [id number] Name: CORI CORRIGAN Rep #: [id number] : 1955 From: Mer Bain BUSINESS PLANNER-C Age/Sex: 62/F Location: ONC Status: Signed Subjective [...] CD138 (B-A38) negative BCL-2 (bcl-2/100/D5) positive BCL-6 (MJ085U/A8) positive Cyclin D1/BCL-1 (SP4) negative [place] (polyclonal) negative Lambda (polyclonal) negative MUM1 (MRQ-43) [...] addressed to her satisfaction. Mer Bain, MSN, MEAT CUTTER-C, AOCNP Medications: Prescriptions This Visit Medication Instructions Recorded Multivitamin [Multiple Vitamins] 1 tab PO DAILY 02/25/18 Medications Added to Medication List This Visit 0.9% Normal Saline 1,000 ml Med 03/25/18 00:00 Ordered Primary Care Provider: Catina Tanner MD Referring Provider: 03/24/18 1547 <Electronically signed by Mer CHARLESC> Date Mer CHARLESC Cosigner Signature: Date (if applicable) CC: ONCOLOGY VISIT REPORT Observed: 03/24/2018 Status: F Source: [place] 9:24 AM [facility] Medical Oncology [address] [place] [address] OFFICE VISIT Date of Service: 03/24/18913 MR#: [id number] Acct: [id number] Name: CORI CORRIGAN Rep #: [id number] : 1955 From: Sam Aiken MD Age/Sex: [...] CD138 (B-A38) negative BCL-2 (bcl-2/100/D5) positive BCL-6 (TG455K/A8) positive Cyclin D1/BCL-1 (SP4) negative [place] (polyclonal) negative Lambda (polyclonal) negative MUM1 (MRQ-43) [...] Provider: Catina Tanner MD Referring Provider: 03/24/18 0924 <Electronically signed by Sam Aiken MD> Date Sam Aiken MD Cosigner Signature: Date (if applicable) CC: COMPREHENSIVE METABOLIC Collected: 03/24/2018 Status: F Source: [place] 8:00 AM [facility] REPOSITORY Order Comment: Serial Specimen #1, #2 [...] Performed By: #### L500.4050, L501.1400, L504.2610 #### [facility] [address] [place], [address] URIC ACID Collected: 03/24/2018 Status: F Source: [place] 8:00 AM [facility] REPOSITORY Order Comment: Serial Specimen #1, #2 or #3? 1 TYPE CODE TESTS RESULT OUT OF RANGE REFERENCE UNITS LAB L501.1400 2.6-6.0 mg/dL Normal URIC 4.2 Result Comment: The drugs N-Acetylcysteine and Metamizole may falsely depress this assay. Performed By: #### L500.4050, L501.1400, L504.2610 #### [facility] [address] [place], [address] LDH Collected: 03/24/2018 Status: F Source: [place] 8:00 AM [facility] REPOSITORY Order Comment: Serial Specimen #1, #2 or #3? 1 TYPE CODE TESTS RESULT OUT OF RANGE REFERENCE UNITS LAB L504.2610 84-246 U/L High LDH 262 Performed By: #### L500.4050, L501.1400, L504.2610 #### [facility] [address] [place], [address] CBC W/DIFF, AUTOMATED Collected: 03/24/2018 Status: F Source: [place] 7:59 AM [facility] REPOSITORY TYPE CODE TESTS RESULT OUT OF [...] MONOCYTOSIS NOTED. Performed By: #### L100.0100 #### [facility] [address] [facility] [place], [address] CONSULTATION Observed: 03/20/2018 Status: F Source: [place] 4:44 PM [facility] REPOSITORY [facility] Medical Records Department [address] [place] [address] Consultation 03/19/18 1410 MR#: [id number] Acct: [id number] Name: CORI CORRIGAN Rep #: [id number] : 1955 62 From: Mer Bain BUSINESS PLANNER-Urbano PCP: Catina Tanner MD Status: DIS IN Y Location: [place] [address] Subjective Date of Service:: 03/19/18 Chief Complaint: [...] CHOP on 03/19/2018 however patient presented to [facility] ED on 03/17/2018 with complaints of worsening [...] Complete Freq: ONCE Protocol: Document 03/17/18 20:58 [facility] (Rec: 03/17/18 21:02 [facility] [id number]) BMI Required to complete PMH What is [...] Denny Juarez MD at 13:07 EST Tel [phone], Service support , Chest X-Ray 03/19/18 10:35 IMPRESSION: Status post left thoracentesis. There is no evidence of pneumothorax. Electronically Signed: Denny Juarez MD at 12:43 EST Tel [phone], Service support , Assessment and Plan Patient [...] agreement with aforementioned plan. Mer Bain, MSN, FRUIT LOADER, AOCNP Medications: Prescriptions This Visit Medication Instructions Recorded Aspirin E.C. [Ecotrin] 325 mg PO PRN PRN 03/17/18 Hydrocodone/Acetaminophen [Bryant 1 tab PO PRN PRN 03/17/18 5-325 Tablet] Medications Added to Medication List This Visit Allopurinol [Zyloprim] Med 03/19/18 08:00 Active 300 mg PO DAILYCM Pantoprazole Sodium [Protonix] Med 03/19/18 14:02 Once Primary Care Provider: Catina Tanner MD Referring Provider: Apolonia Moe MD 03/20/18 3804 <Electronically signed by Mer Bain BUSINESS PLANNER-C> Date Mer Bain BUSINESS PLANNER-C Cosigner Signature (if applicable): Date CC: Matias Tapia MD; Alfred Ruiz D.O.; Catina Tanner MD; Sam Aiken MD; Apolonia Moe MD Signed 12 LEAD ELECTROCARDIOGRAM Observed: 03/20/2018 Status: F Source: [place] 1:39 PM [facility] REPOSITORY [facility] Cardiovascular Services [address] [place] [address] 12 Lead EKG 03/17/18 1640 MR#: [id number] Acct: [id number] Name: CORI CORRIGAN Rep #: [id number] : 1955 62 From: Thomas Castro MD Attending Dr: Elmer Vuong MD Status: DIS IN Ordering Dr: Killian Lacy MD Date: 03/17/18 Location: [facility] Sex: F C Admitted: 03/17/18 [...] Abnormal ECG Confirmed by ROCIO MATA, THOMAS ([id number]), news editor KENNY CANDELARIO ([id number]) on 03/20/2018 1:39:07 PM Referred By: Apolonia Moe Confirmed By:THOMAS CASTRO MD 03/20/18 1339 Date Thomas Castro MD CC: Elmer Vuong MD; Catina Tanner MD; Apolonia Moe MD; Killian Lacy MD Signed DISCHARGE SUMMARY Observed: 03/20/2018 Status: F Source: [place] 1:04 PM [facility]OSPITAL REPOSITORY [facility] Medical Records Department [address] [place] [address] Discharge Summary 03/20/18 1057 MR#: [id number] Acct: [id number] Name: CORI CORRIGAN Rep #: [id number] : 1955 62 From: Lianna Clayton BUSINESS PLANNER-C PCP: Catina Tanner MD Status: ADM IN Y Location: [place] [id number] <Lianna Clayton - Last Filed: 03/20/18 11:11> [...] IMPRESSION: Ultrasound-guided left thoracentesis. Electronically Signed: Denny Jaurez MD at 13:07 EST Tel [phone], Service support , Chest X-Ray 03/19/18 10:35 IMPRESSION: Status post left thoracentesis. There is no evidence of pneumothorax. Electronically Signed: Denny Juarez MD at 12:43 EST Tel [phone], Service support , Dr. Ruiz- Pulmonary Medicine [...] 325 mg PO PRN PRN 03/17/18 Hydrocodone/Acetaminophen [Bryant 5-325 Tablet] 1 tab PO PRN PRN [...] 125/72 H 96 03/20/18 09:05 03/20/18 11:01 12/06/18 09:05 03/20/18 09:05 03/20/18 10:05 Oxygen Flow [...] H Code Visit Inpatient E AND M: [id number] Disch Hosp 03/20/18 1112 <Electronically signed by Lianna KELLY> Date Lianna CHARLESC 03/20/18 1304<Electronically signed by Elmer Vuong MD> Cosigner Signature (if applicable): Date Elmer Vuong MD CC: LETICIA Clayton; Elmer Vuong MD; Catina Tanner MD Signed DISCHARGE INSTRUCTION Observed: 03/20/2018 Status: F Source: [place] 11:06 AM [facility] Medical Records Department [address] [place] [address] Instructions for Home/Discharge Instructions 03/20/18 1016 MR#: [id number] Acct: [id number] Name: CORI CORRIGAN Rep #: [id number] : 1955 62 From: Lianna KELLY PCP: [...] 325 mg PO PRN PRN 03/17/18 Hydrocodone/Acetaminophen [Bryant 5-325 Tablet] 1 tab PO PRN PRN [...] BLOOD CNT Collected: 03/20/2018 Status: F Source: [place] NO DIFF 5:40 AM [facility] REPOSITORY TYPE CODE TESTS RESULT OUT OF [...] MPV 12.8 Performed By: #### L100.0500 #### [facility] [address] [place], [address] BASIC METABOLIC Collected: 03/20/2018 Status: F Source: [place] PROFILE (BMP) 5:40 AM [facility] REPOSITORY TYPE CODE TESTS RESULT OUT OF [...] GAP 9 Performed By: #### L500.2500 #### [facility] [address] [place], [place], [address] CYTOLOGY, BODY FLUID / Collected: 03/19/2018 Status: F Source: [place] CSF 11:30 AM [facility] REPOSITORY TYPE CODE TESTS RESULT OUT OF RANGE REFERENCE UNITS LAB L350.1000 SEE Normal PATHOLOGY CYTOLOGY,BF REPORT /CSF Result Comment: Specimen submitted to Anatomical Pathology Department for testing. Performed By: #### L350.1000 #### [facility] [address] [place], [place], [address] BODY FLUID CELL Collected: 03/19/2018 Status: C Source: [place] COUNT+DIFF 11:15 AM [facility] REPOSITORY Order Comment: The reference range and [...] Fluid. LAB L200.3400 10 6/ul Normal RBC/BF 0.95664 LAB L200.3500 10 3/uL Normal 1.635 WBC/BF [...] Normal SPEC Performed By: #### L200.0200 #### [facility] [address] [place], [place], [address] PROTEIN, BODY FLUID Collected: 03/19/2018 Status: F Source: [place] 11:15 AM [facility] REPOSITORY Order Comment: Specimen Source: PLUERAL TYPE CODE TESTS RESULT OUT OF RANGE REFERENCE UNITS LAB L503.0300 Not Establ. g/dL Normal 4.3 PROTEIN,BF Performed By: #### L503.0300, L504.0250 #### [facility] [address] [place], [address] LDH,BODY FLUID Collected: 03/19/2018 Status: F Source: [place] 11:15 AM [facility] REPOSITORY Order Comment: Specimen Source: [place] TYPE CODE TESTS RESULT OUT OF RANGE REFERENCE UNITS LAB L504.0250 Not Establ. Units/l Normal LDH,BF 163 Performed By: #### L503.0300, L504.0250 #### [facility] [address] [place], [address] MISCELLANEOUS LAB Collected: 03/19/2018 Status: F Source: [place] PROCEDURE 11:15 AM [facility] REPOSITORY Order Comment: Comments: Flow Cytometry on Pleural Fluid Test(s) Ordered: Flow Cytometry on Pleural Fluid TYPE CODE TESTS RESULT OUT OF RANGE REFERENCE UNITS LAB L801.1541 Normal MISC LAB TEST Result Comment: PLEASE SEE PATHOLOGY REPORT Performed By: #### L801.1541 #### [facility] [address] [place], [address] MISCELLANEOUS LAB Collected: 03/19/2018 Status: F Source: [place] PROCEDURE 11:00 AM [facility] REPOSITORY Order Comment: Comments: [id number] Pleural fluid pleural effusion Test(s) Ordered: Flow [id number] TYPE CODE TESTS RESULT OUT OF RANGE REFERENCE UNITS LAB L801.1541 Normal MISC LAB FLOW SEE PATH TEST Performed By: #### L801.1541 #### [facility] [address] [facility] [place], [address] CHEST INSP/EXP 2 VIEW Observed: 03/19/2018 Status: F Source: [place] 10:35 AM [facility] REPOSITORY [facility] Imaging Services [address] [place] [address] Chest Insp/Exp 2 View MR#: [id number] Acct: [id number] Name: CORI CORRIGAN Rep #: [id number] : 1955 F 62 From: Denny Juarez MD PCP: Catina Tanner MD Status: ADM IN Study: Chest Insp/Exp 2 View Date of Exam: 03/19/18 Exam# [id number] Ordering Dr: Denny Juarez MD STUDY: X-RAY [...] Denny Juarez MD at 12:43 EST Tel [phone], Service support , CC: Denny Juarez MD; Catina Tanner MD Pharmacy Cashier: Signed CBC-COMPLETE BLOOD CNT Collected: 03/19/2018 Status: F Source: [place] NO DIFF 6:00 AM [facility] REPOSITORY TYPE CODE TESTS RESULT OUT OF [...] MPV 12.7 Performed By: #### L100.0500 #### [facility] [address] [place], [place], [address] BASIC METABOLIC Collected: 03/19/2018 Status: F Source: [place] PROFILE (BMP) 6:00 AM [facility] REPOSITORY TYPE CODE TESTS RESULT OUT OF [...] 6 Performed By: #### L500.2500, L501.5200 #### [facility] [address] [place], [address] MAGNESIUM Collected: 03/19/2018 Status: F Source: [place] 6:00 AM [facility] REPOSITORY TYPE CODE TESTS RESULT OUT OF RANGE REFERENCE UNITS LAB L501.5200 1.6-2.6 mg/dL Normal MG 2.1 Performed By: #### L500.2500, L501.5200 #### [facility] [address] [place], [address] Observed: 03/19/2018 Status: F Source: [place] CULTURE, BODY FLUID 12:00 AM [facility] REPOSITORY Gram Stain Centrifuged Specimen? Culture performed on centrifuged specimen Gram Stain Rare Red Blood Cells Rare White Blood Cells No organisms seen Body Fluid Cult Culture exhibits no growth. Cult, Anaerobic No anaerobic bacteria isolated. Performed By: #### M100.1300 #### [facility] [address] [place], [address] FLUID/WASHING Observed: 03/19/2018 Status: F Source: [place] 12:00 AM [facility] REPOSITORY Patient: CORI CORRIGAN : 1955 (62/F) Acct Num: [id number] Phys: Elmer Vuong MD Unit Num: [id number] Loc: [facility] [id number] Specimen: [id number] Received: 03/19/18 - 1344 Spec Type: Fluid TISSUES 1 TISSUES: THORACIC FLUID COMMENT Polymorphous lymphocytes with reactive mesothelial cells are present. Immunohistochemistry ([id number]) supports the above diagnosis. CYTOLOGY GROSS Received is 60 ml of cloudy red fluid labeled with the patient's name and and designated per the requisition as thoracentesis. Submitted for cytology preparation including cell block. / 03/19/18 TC:5 CPT: 10505, 32094 CYTOLOGY STUDY Slides are reviewed. DIAGNOSIS CYTOLOGY Thoracentesis fluid for cytology (cytospin and cell block): Negative for malignant cells. AM:reno 03/20/18 HEADER OPERATION: Ultrasound-guided left thoracentesis PRE-OP DIAGNOSIS: Pleural effusion TISSUE SUBMITTED: Thoracentesis fluid for cytology Signed Anam Soliz 03/20/18 <signature on file> Performed By: #### PFLU #### [facility] [address] [place], [address] IMMUNOHISTOCHEMISTRY Observed: 03/19/2018 Status: F Source: [place] 12:00 AM [facility] REPOSITORY Patient: CORI CORRIGAN : 1955 (62/F) Acct Num: [id number] Phys: Elmer Vuong MD Unit Num: [id number] Loc: [facility] [id number] Specimen: [id number] Received: 03/20/181358 Spec Type: IMMUNO THIS IS A CORRECTED REPORT TISSUES 1 TISSUES: THORACIC FLUID SPECIMEN INFORMATION: Tissue Source: Thoracentesis fluid Clinical Info: Pleural effusion Specimen Number: [id number] CPT code: 79859, 52999 x9 METHODOLOGY: Deparaffinized sections of prefer/formalin-fixed tissue [...] positive, rare BCL-2 (bcl-2/100/D5) positive, rare BCL-6 (CM818M/A8) negative MUM1 (MRQ-43) negative These tests were developed and their performance characteristics determined by [facility]. They may not have been cleared or approved by the U.S. Food and Drug Administration. The FDA has determined that such clearance or approval is not necessary. INTERPRETATION: Thoracentesis fluid: Polytypic lymphoid cells. AM:reno 03/21/18 AM:reno 03/26/18 PHYSICIAN AND INSTITUTION [facility] [address] [place], [place] [address] Signed Anam Soliz 03/26/18 <signature on file> Performed By: #### PIMM #### [facility] [address] [place], [address] ECHOCARDIOGRAM, LIMITED Observed: 03/18/2018 Status: F Source: [place] STUDY 5:43 PM [facility] REPOSITORY [facility] Cardiovascular Services [address] [place] [address] Echo, Limited Study 03/18/18 0924 MR#: [id number] Acct: [id number] Name: CORI CORRIGAN Rep #: [id number] : 1955 62 From: Matias Tapia MD Attending Dr: Elmer Vuong MD Status: ADM IN Ordering Dr: Matias Tapia MD Date: 03/18/18 Location: [facility] Sex: F C Admitted: 03/17/18 Reason For Study: S/P NV Procedure This was a limited 2D transthoracic [...] MD Date Dictated: 03/18/18923 Date Transcribed: 03/18/181742 Pharmacy Cashier: Signed PROTHROMBIN TIME W/INR Collected: 03/18/2018 Status: F Source: [place] 8:40 AM [facility] REPOSITORY Order Comment: REDRAW. PREVIOUS SPECIMEN REJECTED DUE TO HEMOLYSIS. 03/18/18 0826 Lianna Anastacio. TYPE CODE TESTS RESULT OUT OF RANGE REFERENCE UNITS LAB L300.4150 11.7-14.9 SECONDS Normal PROTIME 13.2 LAB L300.4200 Normal INR 1.0 Performed By: #### L300.3900, L300.4310 #### [facility] [address] [place], [address] PARTIAL THROMBOPLAST Collected: 03/18/2018 Status: F Source: [place] TIME 8:40 AM [facility] REPOSITORY Order Comment: REDRAW. PREVIOUS SPECIMEN REJECTED DUE TO HEMOLYSIS. 03/18/18 0826 Lianna Chaves. TYPE CODE TESTS RESULT OUT OF REFERENCE UNITS RANGE LAB L300.4310 24.1-36.2 Seconds High PTT 36.9 Performed By: #### L300.3900, L300.4310 #### [facility] [address] 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 * * Discussed with machine tech * * Thank you for allowing me to participate in the care of your patient. Please don't hesitate to call if any issues arise 03/18/18814 <Electronically signed by Matias Tapia MD> Date Matias Tapia MD Cosigner Signature (if applicable): Date CC: Matias Tapia MD; Alfred Ruiz D.O.; Catina Tanner MD; Apolonia Moe MD Signed CONSULTATION Observed: 03/18/2018 Status: F Source: [place] 8:00 AM [facility] REPOSITORY [facility] Medical Records Department [address] [place] [address] Consultation 03/18/18 0658 MR#: [id number] Acct: [id number] Name: CORI CORRIGAN Rep #: [id number] : 1955 62 From: Alfred Ruiz DO PCP: Catina Tanner MD Status: ADM IN [facility] Reason for Consult Date of Consultation: 03/18/18 [...] breath and newly diagnosed non-ST segment elevation NV. Past Medical History Medical History: Medical History (Last Reviewed 03/13/18 @ 14:52 by Taty Veliz) Constipation K59.00 Lymphadenopathy R59.1 Allergies No Known Allergies Allergy (Verified 03/17/18 14:57) Home Medications: Ambulatory Orders Medication Instructions Recorded aspirin 81 mg tablet,delayed 81 mg PO DAILY 02/10/18 release omega-3 fatty acids 1,000 mg 1,000 mg PO DAILY 10/29/18 Surgical History: Surgical History (Last Reviewed 03/13/18 @ 14:52 by Taty Veliz) Hx of lymph node biopsy Onset Date: 02/2018 Z98.890 No history of previous surgery Psychiatric History: No pertinent psych hx 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 This note was generated with [employer] dictation software. It may contain incorrect words, [...] done. Code Visit Inpatient E AND M: 33978 Init Hosp L3 03/18/18 0800 <Electronically signed by Alfred Ruiz DO> Date Alfred Ruiz DO Cosigner Signature (if applicable): Date CC: Matias Tapia MD; Alfred Ruiz D.O.; Catina Tanner MD; Apolonia Moe MD Signed THORACENTESIS W US Observed: 03/18/2018 Status: F Source: [place] 7:10 AM [facility] REPOSITORY [facility] Imaging Services [address] [place] [address] Thoracentesis W US MR#: [id number] Acct: [id number] Name: CORI CORRIGAN Rep #: [id number] : 1955 F 62 From: Denny Juarez MD PCP: Catina Tanner MD Status: ADM IN Study: Thoracentesis W US Date of Exam: 03/19/18 Exam# [id number] Ordering Dr: Alfred Ruiz DO PROCEDURE: ULTRASOUND [...] local anesthesia. Under ultrasound guidance, a 5 Belizean thoracentesis needle/catheter system was advanced into the [...] Denny Juarez MD at 13:07 EST Tel [phone], Service support , CC: Alfred Ruiz D.O.; Catina Tanner MD Pharmacy Cashier: Signed BASIC METABOLIC Collected: 03/18/2018 Status: F Source: [place] PROFILE (BMP) 6:00 AM [facility] REPOSITORY TYPE CODE TESTS RESULT OUT OF [...] GAP 11 Performed By: #### L500.2500 #### [facility] [address] [place], [address] CBC W/DIFF, AUTOMATED Collected: 03/18/2018 Status: F Source: [place] 6:00 AM [facility] REPOSITORY TYPE CODE TESTS RESULT OUT OF [...] Lymph 1.04 Performed By: #### L100.0100 #### [facility] [address] [place], [address] PROTEIN, TOTAL Collected: 03/18/2018 Status: F Source: [place] 6:00 AM [facility] REPOSITORY Order Comment: Serial Specimen #1, #2 or #3? 1 TYPE CODE TESTS RESULT OUT OF RANGE REFERENCE UNITS LAB L501.1500 6.4-8.2 g/dL Normal T PROT 6.7 LAB L501.1950 2.2-4.2 g/dL Normal GLOB 3.2 LAB L501.2000 0.9-2.4 RATIO Normal A/G 1.1 Performed By: #### L001.0705, L504.2610 #### [facility] [address] [place], [address] LDH Collected: 03/18/2018 Status: F Source: [place] 6:00 AM [facility] REPOSITORY Order Comment: Serial Specimen #1, #2 or #3? 1 TYPE CODE TESTS RESULT OUT OF RANGE REFERENCE UNITS LAB L504.2610 84-246 U/L High LDH 324 Performed By: #### L001.0705, L504.2610 #### [facility] [address] [place], [address] BNP,B-TYPE NATRIURETIC Collected: 03/18/2018 Status: F Source: [place] PEPTIDE 6:00 AM [facility] REPOSITORY Order Comment: SPOKE WITH CHRISTINE GERMAIN TO SEE IF OKAY TO ADD TO BLOOD IN LAB SHE WILL CALL BACK AND LET US KNOW. TYPE CODE TESTS RESULT OUT OF RANGE REFERENCE UNITS LAB L503.6620 0-100 pg/mL High B-TYPE 480.2 RAJAN PEP Performed By: #### L503.6620 #### [facility] [address] [place], [address] TROPONIN-I Collected: 03/17/2018 Status: F Source: [place] 11:15 PM [facility] REPOSITORY Order Comment: 'TROP' Serial specimen #1, #2 or #3: 2 TYPE CODE TESTS RESULT OUT OF RANGE REFERENCE UNITS LAB L501.4010 <0.045 ng/mL High alert 2.810 TROPONIN-I Result Comment: Critical Result(s) Called at: 23:48:34 03/17/2018 by: MIKO Brito TROPONIN-I EXPECTED VALUES <0.045 Negative 0.045 - 0.590 Consistent with Cardiac Damage > OR = 0.600 Critical Value Not every elevated troponin is indicative of NV. These values should be used with clinical judgement in examining the patient's clinical picture for diagnosis. To establish a diagnosis of NV versus myocardial injury, there must be a demonstrated rise and/or fall in the troponin values, in addition to ischemic symptoms, EKG changes, new regional wall motion abnormality, and/or angiographical evidence. PLEASE NOTE: REFERENCE RANGES EDITED 17 Performed By: #### L501.4010 #### [facility] [address] [place], [address] TROPONIN-I Collected: 03/17/2018 Status: C Source: [place] 8:52 PM [facility] REPOSITORY TYPE CODE TESTS RESULT OUT OF RANGE REFERENCE UNITS LAB L501.4010 <0.045 ng/mL High alert 3.110 TROPONIN-I Result Comment: RESULTS CALLED TO [facility] 03/17/18 [address]. REPORT READ BACK BY SAME . TROPONIN-I EXPECTED VALUES <0.045 Negative 0.045 - 0.590 Consistent with Cardiac Damage > OR = 0.600 Critical Value Not every elevated troponin is indicative of NV. These values should be used with clinical judgement in examining the patient's clinical picture for diagnosis. To establish a diagnosis of NV versus myocardial injury, there must be a demonstrated rise and/or fall in the troponin values, in addition to ischemic symptoms, EKG changes, new regional wall motion abnormality, and/or angiographical evidence. PLEASE NOTE: REFERENCE RANGES EDITED 17 TROPONIN-I EXPECTED VALUES <0.045 Negative 0.045 - 0.590 Consistent with Cardiac Damage > OR = 0.600 Critical Value Not every elevated troponin is indicative of NV. These values should be used with clinical judgement in examining the patient's clinical picture for diagnosis. To establish a diagnosis of NV versus myocardial injury, there must be a demonstrated rise and/or fall in the troponin values, in addition to ischemic symptoms, EKG changes, new regional wall motion abnormality, and/or angiographical evidence. PLEASE NOTE: REFERENCE RANGES EDITED 17 Performed By: #### L501.4010 #### [facility] [address] 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 Total wbul-rz-jusx time 17 minutes. Code Visit Inpatient E AND M: 84721 Init Hosp L3 Procedures: 73084 Advncd Care Plan 30 Min 03/17/182023 <Electronically signed by Apolonia oMe MD> Date Apolonia Moe MD Cosigner Signature: Date (if applicable) CC: Catina Tanner MD; Apolonia Moe MD Signed EMERGENCY DEPARTMENT Observed: 03/17/2018 Status: F Source: [place] SUMMARY 7:26 PM [facility] REPOSITORY [facility] Medical Records Department [address] [place] [address] Emergency Department Summary 03/17/180 MR#: [id number] Acct: [id number] Name: CORI CORRIGAN Rep #: [id number] : 1955 62 From: Killian Lacy MD [...] Disposition: PCU full admission Impression: Non-ST elevation NV Left malignant pleural effusion Stage III follicular lymphoma This note was generated with [employer] dictation software. It may contain incorrect words, [...] problems, contact your Primary Care Provider. Call [facility] ([phone]) or report to the closest Emergency Room. Call 911 if necessary. 03/17/181925 <Electronically signed by Killian Lacy MD> Date Killian Lacy MD Cosigner Signature (If Indicated): Date CC: Matias Tapia MD; Catina Tanner MD; Mukesh Martin MD CTA CHEST W/WO Observed: 03/17/2018 Status: F Source: [place] CONTRAST 5:50 PM [facility] REPOSITORY [facility] Imaging Services [address] [place] [address] CTA Chest W/WO Contrast MR#: [id number] Acct: [id number] Name: CORI CORRIGAN Rep #: [id number] : 1955 F 62 From: Mariama Saha MD PCP: Catina Tanner MD Status: REG ER Study: CTA Chest W/WO Contrast Date of Exam: 03/17/18 Exam# [id number] Ordering Dr: Killian Lacy MD STUDY: CTA [...] CC: Catina Tanner MD; Killian Lacy MD Pharmacy Cashier: Signed CBC W/DIFF, AUTOMATED Collected: 03/17/2018 Status: F Source: [place] 4:57 PM [facility] REPOSITORY TYPE CODE TESTS RESULT OUT OF [...] Lymph 0.93 Performed By: #### L100.0100 #### [facility] [address] [place], [address] BASIC METABOLIC Collected: 03/17/2018 Status: F Source: [place] PROFILE ([facility]) 4:57 PM [facility] REPOSITORY TYPE CODE TESTS RESULT OUT OF [...] 5 NA 135 Result Comment: CALLED [facility] ED WITH CRITICAL CTNI BY [facility] 03-17-18 AT 1742PM READ BACK BY SAME LAB L501.5600 3.5-5.1 mmol/L Normal K 3.9 LAB L501.5900 98-107 mmol/L Normal CL 99 LAB L501.6100 21.0-32.0 mmol/L Normal CO2 28.0 LAB L501.6200 5-15 Normal 8 GAP Performed By: #### L500.2500, L500.3400, L501.4010 #### [facility] [address] [place], [place], [address] LIVER PROFILE Collected: 03/17/2018 Status: F Source: [place] 4:57 PM [facility] REPOSITORY TYPE CODE TESTS RESULT OUT OF [...] Performed By: #### L500.2500, L500.3400, L501.4010 #### [facility] [address] [place], [address] TROPONIN-I Collected: 03/17/2018 Status: F Source: [place] 4:57 PM [facility] REPOSITORY TYPE CODE TESTS RESULT OUT OF RANGE REFERENCE UNITS LAB L501.4010 <0.045 ng/mL High alert 3.440 TROPONIN-I Result Comment: TROPONIN-I EXPECTED VALUES <0.045 Negative 0.045 - 0.590 Consistent with Cardiac Damage > OR = 0.600 Critical Value Not every elevated troponin is indicative of NV. These values should be used with clinical judgement in examining the patient's clinical picture for diagnosis. To establish a diagnosis of NV versus myocardial injury, there must be a demonstrated rise and/or fall in the troponin values, in addition to ischemic symptoms, EKG changes, new regional wall motion abnormality, and/or angiographical evidence. PLEASE NOTE: REFERENCE RANGES EDITED 17 Performed By: #### L500.2500, L500.3400, L501.4010 #### [facility] [address] [place], [address] CHEST PA AND LATERAL Observed: 03/17/2018 Status: F Source: [place] 3:44 PM [facility] REPOSITORY [facility] Imaging Services [address] [place] [address] Chest PA and Lateral MR#: [id number] Acct: [id number] Name: CORI CORRIGAN Rep #: [id number] : 1955 F 62 From: Mariama Saha MD PCP: Catina Tanner MD Status: REG ER Study: Chest PA and Lateral Date of Exam: 03/17/18 Exam# [id number] Ordering Dr: Killian Lacy MD STUDY: X-RAY [...] CC: Catina Tanner MD; Killian Lacy MD Pharmacy Cashier: Signed 12 LEAD ELECTROCARDIOGRAM Observed: 03/14/2018 Status: F Source: [place] 2:13 PM [facility] REPOSITORY [facility] Cardiovascular Services [address] [place] [address] 12 Lead EKG 03/14/18 0924 MR#: [id number] Acct: [id number] Name: CORI CORRIGAN Rep #: [id number] : 1955 62 From: Matias Tapia MD Attending Dr: Mukesh Martin MD Status: [facility] Ordering Dr: Jose Narvaez MD Date: 03/14/18 Location: [facility] [place] Sex: F C Admitted: Test Reason : [...] available Confirmed by MATIAS TAPIA MD ([id number]), news editor KAREN MARCELINO ([id number]) on 03/14/2018 2:13:24 PM Referred By: Mukesh Martin Confirmed By:MATIAS TAPIA MD 03/14/18 1413 Date Matias Tapia MD CC: Jose Narvaez MD; Catina Tanner MD; Mukesh Martin MD Signed DISCHARGE INSTRUCTION Observed: 03/14/2018 Status: F Source: [place] 1:39 PM [facility] REPOSITORY [facility] Medical Records Department [address] [place] [address] Instructions for Home/Discharge Instructions 03/14/18 1113 MR#: [id number] Acct: [id number] Name: CORI CORRIGAN Rep #: [id number] : 1955 62 From: Mukesh Martin MD PCP: Catina Tanner MD Status: DEP [facility] [place] Discharge Diet: Light diet - advance as [...] tab PO DAILY 02/25/18 Hydrocodone Bitart/Apap 5-325 [Bryant 5MG-325MG] 1 tablet PO Q6H PRN PRN 2 Days #5 tablet 03/14/18 The following prescriptions were given: Hydrocodone Bitart/Apap 5-325 [Bryant 5MG-325MG] 1 tablet PO Q6H PRN PRN 2 Days #5 tablet PRN Reason: Pain Primary Care Physician: Catina Tanner MD [Primary Care Provider] - Test Results: Test results from this visit will be discussed in further detail at your follow-up appointment, if applicable. Please Follow Up With: Mukesh Martin MD - [phone] When: Office appointment can be scheduled if needed 03/14/18 4409 <Electronically signed by Mukesh Martin MD> Date Mukesh Martin MD CC: Catina Tanner MD OPERATIVE REPORT Observed: 03/14/2018 Status: F Source: [place] 11:54 AM [facility] REPOSITORY [facility] Medical Records Department [address] [place] [address] Operative Report 03/14/18 1151 MR#: [id number] Acct: [id number] Name: CORI CORRIGAN Rep #: [id number] : 1955 62 From: Mukesh Martin MD PCP: Catina Tanner MD Status: REG [facility] [place] Y Location: [place] [address] Problem List (1) Follicular lymphoma grade III Status: Acute Qualifiers: Lymphoma site: axillary Qualified Code(s): C82.24 - Follicular lymphoma grade III, unspecified, lymph nodes of axilla and upper limb Report of Operation Date of Procedure: 03/14/18 Pre-Operative Diagnosis: Follicular lymphoma Post-Operative Diagnosis: Same Surgery/Procedure Performed:: Right internal jugular 6 Belizean power port placement Description of Surgical Findings:: [...] LINE PLACEMENT Observed: 03/14/2018 Status: F Source: [place] 11:14 AM [facility] REPOSITORY [facility] Imaging Services [address] [place] [address] CXR for Line Placement MR#: [id number] Acct: [id number] Name: CORI CORRIGAN Rep #: [id number] : 1955 F 62 From: Denny Juarez MD PCP: Catina Tanner MD Status: [facility] Study: CXR for Line Placement Date of Exam: 03/14/18 Exam# [id number] Ordering Dr: Mukesh Martin MD STUDY: X-RAY [...] Denny Juarez MD at 12:35 EST Tel [phone], Service support , CC: Catina Tanner MD; Mukesh Martin MD Pharmacy Cashier: Signed ONCOLOGY VISIT REPORT Observed: 03/14/2018 Status: F Source: [place] 10:46 AM [facility] REPOSITORY [facility] [address] [place] [address] OFFICE VISIT Date of Service: 03/13/18 1448 MR#: [id number] Acct: [id number] Name: CORI CORRIGAN Rep #: [id number] : 1955 From: Sam Aiken MD Age/Sex: [...] CD138 (B-A38) negative BCL-2 (bcl-2/100/D5) positive BCL-6 (KV117R/A8) positive Cyclin D1/BCL-1 (SP4) negative [place] (polyclonal) negative Lambda (polyclonal) negative MUM1 (MRQ-43) [...] transformation is noted in the mediastinal structures. (VanStabigailste et al, Journal of Clinical Oncology 16:2142, [...] F Source: [place] -THIGH INIT 9:33 AM [facility] REPOSITORY [facility] Imaging Services [address] [place] [address] PET/CT Tumor Base -Thigh Init MR#: [id number] Acct: [id number] Name: CORI CORRIGAN Rep #: [id number] : 1955 F 62 From: Germán Alf DO PCP: Catina Tanner MD Status: REG RCR Study: PET/CT Tumor Base -Thigh Init Date of Exam: 03/10/18 Exam# [id number] Ordering Dr: Sam Aiken MD EXAMINATION: FDG [...] CC: Catina Tanner MD; Sam Aiken MD Pharmacy Cashier: Signed ONC ECHOCARDIOGRAM Observed: 03/07/2018 Status: F Source: [place] COMPLETE 3:33 PM [facility] REPOSITORY [facility] Cardiovascular [place] [address] ONC Echo Complete 03/07/18 1349 MR#: [id number] Acct: [id number] Name: CROI CORRIGAN Rep #: [id number] : 1955 62 From: Matias Tapia MD Attending Dr: Sam Aiken MD Status: REG CLI Ordering Dr: Sam Aiken MD Date: 03/07/18 Location: [facility] Sex: F C Admitted: Reason For Study: [...] Aiken Referring Physician: CATINA TANNER Performed By: Pauline Santamaria, [place], RVT 03/07/18 1532 Date Matias Tapia MD CC: Catina Tanner MD; Sam Aiken MD Date Dictated: 03/07/18 1349 Date Transcribed: 03/07/18 1532 Pharmacy Cashier: Signed VENOUS DUPLEX LOWER Observed: 03/07/2018 Status: F Source: [place] EXTREMITY 11:42 AM [facility] REPOSITORY [facility] Cardiovascular Services [address] [place] [address] Venous Duplex US - Efra Extrem 03/04/18 1527 MR#: [id number] Acct: [id number] Name: CORI CORRIGAN Rep #: [id number] : 1955 62 From: Arnol Bundy MD [...] Ordering Physician: Catina Tanner Performed By: Venancio Seymour, RVT 03/07/18 1142 Date Arnol Bundy MD CC: Catina Tanner MD Date Dictated: 03/04/18 1527 Date Transcribed: 03/07/18 1142 Pharmacy Cashier: Signed DIAG MAMM W/CAD, Observed: 03/03/2018 Status: F Source: [facility] 1:52 PM [facility] REPOSITORY [facility] Imaging Services [address] [place] [address] DIAG MAMM W/CAD, BILAT MR#: [id number] Acct: [id number] Name: CORI CORRIGAN Rep #: [id number] : 1955 F 62 From: Denny Juarez MD PCP: Catina Tanner MD Status: REG CLI Study: DIAG MAMM W/CAD, BILAT Date of Exam: 03/03/18 Exam# [id number] Ordering Dr: Sam Aiken MD MAMMOGRAPHY - [...] Denny Juarez MD at 10:44 EST Tel [phone], Service support , CC: Catina Tanner MD; Sam Aiken MD Pharmacy Cashier: Signed CBC W/DIFF, AUTOMATED Collected: 02/26/2018 Status: F Source: [place] 2:05 PM [facility] REPOSITORY Order Comment: Reason for Laboratory Test [...] 1.93 Performed By: #### L100.0100, L100.9950 #### [facility] [address] [place], [place], [address] RETIC PANEL Collected: 02/26/2018 Status: F Source: [place] 2:05 PM [facility] REPOSITORY Order Comment: Reason for Laboratory Test [...] marrow. Performed By: #### L100.0100, L100.9950 #### [facility] [address] [place], [address] COMPREHENSIVE METABOLIC Collected: 02/26/2018 Status: F Source: [facility] 2:05 PM [facility] REPOSITORY Order Comment: Reason for Laboratory Test [...] Performed By: #### L500.4050, L501.1400, L504.2610 #### [facility] [address] [facility] [place], [address] URIC ACID Collected: 02/26/2018 Status: F Source: [place] 2:05 PM [facility] REPOSITORY Order Comment: Reason for Laboratory Test . Serial Specimen #1, #2 or #3? 1 TYPE CODE TESTS RESULT OUT OF RANGE REFERENCE UNITS LAB L501.1400 2.6-6.0 mg/dL Normal URIC 5.5 Result Comment: The drugs N-Acetylcysteine and Metamizole may falsely depress this assay. Performed By: #### L500.4050, L501.1400, L504.2610 #### [facility] [address] [facility] [place], [address] LDH Collected: 02/26/2018 Status: F Source: [place] 2:05 PM [facility] REPOSITORY Order Comment: Reason for Laboratory Test . Serial Specimen #1, #2 or #3? 1 TYPE CODE TESTS RESULT OUT OF RANGE REFERENCE UNITS LAB L504.2610 84-246 U/L High LDH 342 Performed By: #### L500.4050, L501.1400, L504.2610 #### [facility] [address] [facility] 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: Comments: 1.5 PACK DAILY [...] Provider: Catina Tanner MD Referring Provider: 02/25/18 2280 <Electronically signed by Sam Aiken MD> Date Sam Aiken MD Cosigner Signature: Date (if applicable) CC: Catina Tanner MD; Sam Aiken MD; Mukesh Martin MD Signed SURGERY VISIT REPORT Observed: 02/25/2018 Status: F Source: [place] 4:56 PM [facility] REPOSITORY [facility] [address] [place] [address] [address] [place] [address] OFFICE VISIT Date of Service: 02/25/18 MR#: [id number] Acct: [id number] Name: CORI CORRIGAN Rep #: [id number] : 1955 Provider: Mukesh Martin MD Age/Sex: 62/F Location: [facility] Status: Signed Intake Intake Visit Reasons: Breast [...] 3 Previous office notes reflect the following. MR#:[id number]:[id number] Name: CORI CORRIGAN ep #:[id number] : 1955 Provider:Mukesh Martin MD Age/Sex: 62/F Location:[facility] [place] Status:Signed Intake Vital Signs 02/10/18 Height 5 [...] Method room air Intake Visit Reasons: Lymphadenopathy [facility] US 01/31 Air Intercept Controller Required: No Is patient in pain?: No Allergies No Known Allergies Allergy (Unverified 10/29/18 15:02) Medications aspirin 81 mg tablet,delayed release 81 mg PO DAILY 02/10/18 [History Confirmed 02/10/18] omega-3 fatty acids 1,000 mg capsule 1,000 mg PO DAILY 02/10/18 [History Confirmed 02/10/18] [facility] Medical History Constipation (Acute) Lymphadenopathy (Acute) Surgical [...] brother may have had lymphoma. At the [facility] January 31 she had a superficial [...] Mukesh Martin MD> Date Mukesh Martin MD [facility] [address] [place] [address] Abdomen/Pelvis WITH Contrast MR#: [id number]:[id number] Name: CORI CORRIGAN [facility] #:[id number] : 1955F 62 From: Denny Juarez MD PCP:Catina Tanner MD Status:REG CLI Study:Abdomen/Pelvis WITH Contrast Date of Exam:02/14/18 Exam#[id number] Ordering Dr: Mukesh Martin MD STUDY: CT [...] Denny Juarez MD at 14:15 EDT Tel [phone], Service support , CC: Catina Tanner MD; Mukesh Martin MD Pharmacy Cashier: [facility] [address] [place] [address] Chest WITH Contrast MR#: [id number]:[id number] Name: CORI CORRIGAN [facility] #:[id number] : 1955F 62 From: Denny Juarez MD PCP:Catina Tanner MD Status:REG CLI Study:Chest WITH Contrast Date of Exam:02/14/18 Exam#[id number] Ordering Dr: Mukesh Martin MD STUDY: CT [...] Denny Juarez MD at 14:19 EDT Tel [phone], Service support , Assessment AND Plan Problems [...] site: multiple regions Breast nodule N63.0 02/25/18 9676 <Electronically signed by Mukesh Martin MD> Date Mukesh Martin MD Cosigner Signature: Date (if applicable) CC: Catina Tanner MD; Sam Aiken MD VITAMIN D,25 HYDROXY Collected: 02/18/2018 Status: F Source: [place] 9:10 AM [facility] REPOSITORY TYPE CODE TESTS RESULT OUT OF REFERENCE UNITS RANGE LAB L506.1000 29.95-100.01 ng/mL Low Vitamin D 27.5 25-OH Result Comment: Vitamin D 25(OH) Status Range Deficiency <20 ng/mL (50nmol/L) Insuffciency 20 - 30 ng/mL (50 - 75 nmol/L) Sufficiency 30 - 100 ng/mL (75 - 250 nmol/L) Toxicity >100 ng/mL (>250 nmol/L) Performed By: #### L506.1000, L501.2300, L501.9520, L509.1000 #### [facility] [address] [place], [address] PHOSPHORUS Collected: 02/18/2018 Status: F Source: [place] 9:10 AM [facility] REPOSITORY TYPE CODE TESTS RESULT OUT OF RANGE REFERENCE UNITS LAB L501.2300 2.5-4.9 mg/dL Normal PHOS 4.1 Performed By: #### L506.1000, L501.2300, L501.9520, L509.1000 #### [facility] [address] [place], [address] THYROID STIM HORMONE Collected: 02/18/2018 Status: F Source: [place] (TSH) 9:10 AM [facility] REPOSITORY TYPE CODE TESTS RESULT OUT OF RANGE REFERENCE UNITS LAB L501.9520 0.358-3.74 uIU/mL Normal TSH 2.99 Performed By: #### L506.1000, L501.2300, L501.9520, L509.1000 #### [facility] [address] [place], [address] PTHIN Collected: 02/18/2018 Status: F Source: [place] [facility] TYPE CODE TESTS RESULT OUT OF RANGE REFERENCE UNITS LAB L509.1000 18.4-80.1 pg/mL Normal [place] 44.4 Performed By: #### L506.1000, L501.2300, L501.9520, L509.1000 #### [facility] [address] [place], [address] COMPREHENSIVE METABOLIC Collected: 02/18/2018 Status: F Source: [place] [facility] 9:10 AM [facility] REPOSITORY TYPE CODE TESTS RESULT OUT OF [...] GAP 10 Performed By: #### L500.4050 #### [facility] [address] [place] [address] #### L3100.0390, L3100.0528, L3100.0625 #### [facility] (refer to report for specific site) refer to report for address and phone number HEPATITIS B SURFACE Collected: 02/18/2018 Status: F Source: [place] AG 9:10 AM [facility] REPOSITORY TYPE CODE TESTS RESULT OUT OF RANGE REFERENCE UNITS LAB L3100.0400 Negative Normal HB Negative SURF AG Result Comment: Performed at: [address] [id number] Boatswains Mate: Sherif Mendez PhD, Phone: [phone] Performed By: #### L500.4050 #### [facility] [address] [place] [address], [address] #### L3100.0390, L3100.0528, L3100.0625 #### [facility] (refer to report for specific site) refer to report for address and phone number HEP B SURFACE Collected: 02/18/2018 Status: F Source: [place] ANTIBODIES 9:10 AM [facility] REPOSITORY TYPE CODE TESTS RESULT OUT OF RANGE REFERENCE UNITS LAB L3100.0528 . Normal Hep B Non Reactive Mirtha AB Result Comment: Non Reactive: Inconsistent with immunity, less than 10 mIU/mL Reactive: Consistent with immunity, greater than 9.9 mIU/mL Performed By: #### L500.4050 #### [facility] [address] [place] [address], [address] #### L3100.0390, L3100.0528, L3100.0625 #### [facility] (refer to report for specific site) refer to report for address and phone number HEPATITIS C ANTIBODIES Collected: 02/18/2018 Status: F Source: [place] 9:10 AM [facility] REPOSITORY TYPE CODE TESTS RESULT OUT OF RANGE REFERENCE UNITS LAB L3100.0650 0.0-0.9 s/co ratio Normal HEP C AB <0.1 Result Comment: Negative: < 0.8 Indeterminate: 0.8 - 0.9 Positive: > 0.9 The CDC recommends that a positive HCV antibody result be followed up with a HCV Nucleic Acid Amplification test (387281). Performed By: #### L500.4050 #### [facility] [address] [place], [address] #### L3100.0390, L3100.0528, L3100.0625 #### [facility] (refer to report for specific site) refer to report for address and phone number CALCIUM IONIZED Collected: 02/18/2018 Status: F Source: [place] 9:10 AM [facility] REPOSITORY TYPE CODE TESTS RESULT OUT OF REFERENCE UNITS RANGE LAB L3100.9600 4.5-5.6 mg/dL High IONIZED CA 6.2 Performed By: #### L3100.9600 #### [facility] (refer to report for specific site) refer to report for address and phone number ABDOMEN/PELVIS WITH Observed: 02/14/2018 Status: F Source: [place] CONTRAST 12:49 PM [facility] REPOSITORY [facility] [address] [place] [address] Abdomen/Pelvis WITH Contrast MR#: [id number] Acct: [id number] Name: CORI CORRIGAN Rep #: [id number] : 1955 F 62 From: Denny Juarez MD PCP: Catina Tanner MD Status: REG CLI Study: Abdomen/Pelvis WITH Contrast Date of Exam: 02/14/18 Exam# [id number] Ordering Dr: Mukesh Martin MD STUDY: CT [...] Denny Juarez MD at 14:15 EDT Tel [phone], Service support , CC: Catina Tanner MD; Mukesh Martin MD Pharmacy Cashier: Signed CHEST WITH CONTRAST Observed: 02/14/2018 Status: F Source: [place] 12:49 PM [facility] REPOSITORY [facility] [address] [place] [address] Chest WITH Contrast MR#: [id number] Acct: [id number] Name: CORI CORRIGAN Rep #: [id number] : 1955 F 62 From: Denny Juarez MD PCP: Catina Tanner MD Status: REG CLI Study: Chest WITH Contrast Date of Exam: 02/14/18 Exam# [id number] Ordering Dr: Mukesh Martin MD STUDY: CT [...] Denny Juarez MD at 14:19 EDT Tel [phone], Service support , CC: Catina Tanner MD; Mukesh Martin MD Pharmacy Cashier: Signed SURGERY VISIT REPORT Observed: 02/13/2018 Status: F Source: [place] 9:31 AM [facility] REPOSITORY [facility] [address] [place] [address] [address] [place] [address] OFFICE VISIT Date of Service: 02/13/18 MR#: [id number] Acct: [id number] Name: CORI CORRIGAN Rep #: [id number] : 1955 Provider: Mukesh Martin MD Age/Sex: 62/F Location: [facility] Status: Signed Intake Intake Visit Reasons: US Mammotone bx- Left groin Chief Complaint: left groin mammotome bx Air Intercept Controller Required: No Is patient in pain?: No [...] type: does not use HPI HPI HPI: CROI CORRIGAN, is a 62 F who presents [...] blood loss. Mukesh Martin M.D., F.A.C.S. Alert Chemical Pathologist Yes Biopsy Lymphnode Biopsy: 05387 Lymphnode w Needle (96893) [facility] [place] Procedure Performed By: Procedure performed by: [...] Referrals: Coding Level of Care Code Attention Chemical Pathologist Diagnoses Generalized lymphadenopathy R59.1 Additional Codes Biopsy - Lymphnode Biopsy: 60923 Lymphnode w Needle (00098) Comment 80336 additional code 02/13/18 0931 <Electronically signed by Mukesh Martin MD> Date Mukesh Martin MD Cosign Signature: Date (if applicable) CC: Catina Tanner MD MISCELLANEOUS SPECIMEN Observed: 02/13/2018 Status: F Source: [place] 12:00 AM [facility] REPOSITORY Patient: CORI CORRIGAN : 1955 (62/F) Acct Num: [id number] Phys: Veronica MATA,Mukesh Unit Num: [id number] Loc: LABSPEC Specimen: [id number] Received: 02/13/18 - 1055 Spec Type: MISC TISSUES 1 TISSUES: Inguinal region, NOS COMMENT Immunohistochemistry ([id number]) supports the above diagnosis. The lymphoma is [...] one cassette. / AM:reno 02/13/18 TC:0 CPT: 90739 HEADER OPERATION: Left groin mammotome biopsy PRE-OP DIAGNOSIS: Left groin enlarged lymph node TISSUE SUBMITTED: Left groin tissue MICROSCOPIC DESCRIPTION Slides are reviewed. MICROSCOPIC DIAGNOSIS Left groin lymph node, core biopsy: Consistent with follicular center lymphoma, grade 3/3. AM:erno 02/14/18 Signed Anam Heydi 02/19/18 <signature on file> Performed By: #### PMISC #### [facility] [place], [address] IMMUNOHISTOCHEMISTRY Observed: 02/13/2018 Status: F Source: [place] 12:00 [facility] REPOSITORY Patient: CORI CORRIGAN : 1955 (62/F) Acct Num: [id number] Phys: Veronica MATA,Mukesh Unit Num: [id number] Loc: [facility]SPEC Specimen: [id number] Received: 02/14/181106 Spec Type: IMMUNO TISSUES 1 TISSUES: Inguinal region, NOS SPECIMEN INFORMATION: Tissue Source: Left groin tissue Clinical Info: Left groin enlarged lymph node Specimen Number: [id number] CPT code: 05681, 04770 x22 METHODOLOGY: Deparaffinized sections of prefer/formalin-fixed tissue [...] CD138 (B-A38) negative BCL-2 (bcl-2/100/D5) positive BCL-6 (SC536W/A8) positive Cyclin D1/BCL-1 (SP4) negative [place] (polyclonal) negative Lambda (polyclonal) negative MUM1 (MRQ-43) equivocal These tests were developed and their performance characteristics determined by [facility]. They may not have been cleared or approved by the U.S. Food and Drug Administration. The FDA has determined that such clearance or approval is not necessary. INTERPRETATION: Left groin tissue, core biopsy: Consistent with follicular center lymphoma, grade III/III. AM:reno 02/19/18 Case has been reviewed in consultation with Dr. Caceres who concurs with the above diagnosis. IDC: [facility] [address], [place] [address] Signed Anam Soliz 02/19/18 <signature on file> Performed By: #### PIMM #### [facility] [address] [place], [address] SURGERY VISIT REPORT Observed: 02/10/2018 Status: F Source: [place] 5:46 PM [facility] REPOSITORY [facility] [address] [place] [address] OFFICE VISIT Date of Service: 02/10/18 MR#: [id number] Acct: [id number] Name: CORI CORRIGAN Rep #: [id number] : 1955 Provider: Mukesh Martin MD Age/Sex: 62/F Location: [facility] Status: Signed Intake Vital Signs02/10/18 Height 5 ft 4 in 02/10/18 Weight: 180 lb Intake Visit Reasons: Lymphadenopathy [facility] US 01/31 Air Intercept Controller Required: No Is patient in pain?: No Allergies No Known Allergies Allergy (Unverified 02/10/18 15:02) Medications aspirin 81 mg tablet,delayed release 81 mg PO DAILY 02/10/18 [History Confirmed 02/10/18] omega-3 fatty acids 1,000 mg capsule 1,000 mg PO DAILY 02/10/18 [History Confirmed 02/10/18] [facility] History Constipation (Acute) Lymphadenopathy (Acute) Surgical [...] brother may have had lymphoma. At the [facility] January 31 she had a superficial [...] Detailed, Low Diagnoses Generalized lymphadenopathy R59.1 02/10/18 5726 <Electronically signed by Mukesh Martin MD> Date Mukesh Martin MD Cosigner Signature: Date (if applicable) CC: Catina Tanner MD CNPN Observed: 02/07/2018 Status: COMPLETED Source: [place] 12:00 AM [facility] REPOSITORY Telephone (WOOB) CORI CORRIGAN ([id number]) 1955 F Date Time Provider Department 02/07/18 MIRIAN SALAZAR (SHOP ASSISTANT) WOOB During your visit today, we recorded [...] Primary Visit Diagnosis:Screening mammogram, encounter for [Z12.31] Order(s):[facility] SCREENING [9400922] Order #: [id number] FUTURE Prescriptions as of 02/07/2018 Sig: ASPIRIN 81 MG TABLET,DELAYED * Take 81 mg by mouth once hari* OMEGA-3 FATTY ACIDS-FISH OIL * Take by mouth. Problem List As Of Date: 02/07/2018 (None) Encounter Status:Closed by MIRIAN SALAZAR on 02/07/18 ABDOMEN LIMITED Observed: 01/31/2018 Status: F Source: [place] 7:40 AM [facility] REPOSITORY [facility] [address] [place] [address] Abdomen Limited MR#: [id number] Acct: [id number] Name: CORI CORRIGAN Rep #: [id number] : 1955 F 62 From: Francheska Hwang PCP: Catina Tanner MD Status: REG CLI Study: Abdomen Limited Date of Exam: 01/31/18 Exam# [id number] Ordering Dr: Catina Tanner MD STUDY: SUPERFICIAL [...] Service support , CC: Catina Tanner MD Pharmacy Cashier: Signed HEAD/NECK SOFT TISSUE Observed: 01/31/2018 Status: F Source: [place] 7:40 AM [facility] REPOSITORY [facility] [address] [place] [address] Head/Neck Soft Tissue MR#: [id number] Acct: [id number] Name: CORI CORRIGAN Rep #: [id number] : 1955 F 62 From: Misbah Cordova DO PCP: Catina Tanner MD Status: REG CLI Study: Head/Neck Soft Tissue Date of Exam: 01/31/18 Exam# [id number] Ordering Dr: Catina Tanner MD STUDY: SUPERFICIAL [...] Service support , CC: Catina Tanner MD Pharmacy Cashier: Signed URINALYSIS, COMPLETE Collected: 01/27/2018 Status: F Source: [place] 11:06 AM [facility] REPOSITORY Order Comment: How was Urine Obtained? [...] 0-5 SEEN Performed By: #### L400.0001 #### [facility] [place], [address] CBC W/DIFF, AUTOMATED Collected: 01/27/2018 Status: F Source: [place] 11:06 AM [facility] REPOSITORY TYPE CODE TESTS RESULT OUT OF [...] 1.92 Performed By: #### L100.0100, L500.4050 #### [facility] [address] [place], [address] COMPREHENSIVE METABOLIC Collected: 01/27/2018 Status: F Source: [facility] 11:06 AM [facility] REPOSITORY TYPE CODE TESTS RESULT OUT OF [...] 10 Performed By: #### L100.0100, L500.4050 #### [facility] [address] [facility] [place], [address] CHEST PA AND LATERAL Observed: 01/27/2018 Status: F Source: [place] 11:05 AM [facility] REPOSITORY [facility] [address] [place] [address] Chest PA and Lateral MR#: [id number] Acct: [id number] Name: CORI CORRIGAN Rep #: [id number] : 1955 F 62 From: Misbah Cordova DO PCP: Catina Tanner MD Status: REG CLI Study: Chest PA and Lateral Date of Exam: 01/27/18 Exam# [id number] Ordering Dr: Catina Tanner MD STUDY: X-RAY [...] Service support , CC: Catina Tanner MD Pharmacy Cashier: Signed ALLERGIES ALLERGIES DATE TYPE / CODE NAME / CODE REACTION SEVERITY SOURCE 04/28/2018 Drug No Known Unknown [place] [facility] Allergy/4160 Allergies/F00 [facility] 77474(SNOMED 5493895(RXNOR Repository CT) M) ENCOUNTERS ENCOUNTERS ADMIT/DISCHARGE ACCOUNT ADMITTING ENCOUNTER LOCATION SOURCE NUMBER CLASS 05/09/2018 [id number] Ambulatory [place] 9 [facility] ing:ONC Repository 05/08/2018 [id number] Ambulatory [facility]:B [place] 4 [place] Repository 04/28/2018 [id number] Ambulatory BMSBuilding:B [place] 4 [facility] Repository 04/17/2018 [id number] Ambulatory BMSBuilding:B [place] 1 [place] Repository 04/13/2018/ [id number] Emergency [place] 8 9 [facility] ing:ED Repository 04/04/2018/ [id number] Ambulatory BMSBuilding:B [place] 8 0 [facility] Repository 04/03/2018 [id number] Ambulatory [place] 6 [facility] ing:US Repository 04/02/2018 [id number] Ambulatory [place] 1 [facility] ing:RAD Repository 04/02/2018 [id number] Ambulatory BMSBuilding:B [place] 6 [facility] Repository 03/26/2018 [id number] Ambulatory [place] 3 [facility] ing:CVS Repository 03/24/2018 [id number] Ambulatory BMSBuilding:B [place] 8 [facility] Repository 03/24/2018 [id number] Ambulatory [facility]MSBuilding:B [place] 4 [place] Repository 03/17/2018 [id number] Ambulatory BMSBuilding:W [place] 0 [facility] Repository 03/17/2018/ [id number] Ambulatory BMSBuilding:W [place] 8 5 [facility] Repository 03/17/2018 [id number] Ambulatory BMSBuilding:W [place] 9 [facility] Repository 03/17/2018/ [id number] Korhelena, [place] Inpatient [place] 8 8 [place] [facility] ing:PCURoom: Repository CZB102Dpz: 1 03/17/2018 [id number] Koram, [place] Ambulatory BMSBuilding:B [place] 6 [place] Repository 03/17/2018 [id number] Abhi [place] Ambulatory BMSBuilding:B [place] 6 [place] Repository 03/17/2018 [id number] Koram, [place] Ambulatory BMSBuilding:B [place] 7 [place].[facility] Repository 03/17/2018 [id number] Koram, [place] Ambulatory BMSBuilding:B [place] 9 [place] Repository 03/17/2018 [id number] Koram, [place] Ambulatory BMSBuilding:B [place] 4 [place] Repository 03/17/2018 [id number] Eberam, [place] Ambulatory BMSBuilding:B [place] 1 [place].[facility] Repository 03/17/2018 [id number] Abhi [place] Ambulatory BMSBuilding:B [place] 5 [place].[facility] Repository 03/17/2018 [id number] Abhi [place] Ambulatory BMSBuilding:B [place] 0 [place].[facility] Repository 03/14/2018 [id number] Ambulatory BMSBuilding:B [place] 3 [place] Repository 03/14/2018/ [id number] Ambulatory [place] 8 5 [facility] ing:SDCRoom: Repository AC17 03/13/2018 [id number] Ambulatory BMSBuilding:B [place] 4 [place] Repository 03/07/2018 [id number] Ambulatory BMSBuilding:W [place] 2 [facility] Repository 03/07/2018 [id number] Ambulatory [place] 1 [facility] ing:CVS Repository 03/04/2018 [id number] Ambulatory [place] 5 [facility] ing:CVS Repository 03/03/2018 [id number] Ambulatory [place] 7 [facility] ing:OPBI Repository 02/25/2018 [id number] Ambulatory BMSBuilding:B [place] 8 [place] Repository 02/25/2018/ [id number] Ambulatory BMSBuilding:B [place] 8 0 [facility] Repository 02/18/2018 [id number] Ambulatory [place] 3 [facility] ing:MFPLAB Repository 02/14/2018 [id number] Ambulatory [place] 6 [facility] ing:CT Repository 02/13/2018 [id number] Ambulatory [place] 7 [facility] ing:[facility]SPEC Repository 02/13/2018/ [id number] Ambulatory BMSBuilding:B [place] 8 0 [facility] Repository 02/11/2018 [id number] Ambulatory [place] 2 [facility] ing:OPUS Repository 02/10/2018/ [id number] Ambulatory BMSBuilding:B [place] 8 1 [facility] Repository 01/31/2018 [id number] Ambulatory [place] 8 [facility] ing: Repository 01/27/2018 [id number] Ambulatory [place] 9 [facility] ing:[facility] Repository PAYERS PAYERS ENCOUNTER GUARANTOR PAYER SUBSCRIBER SOURCE 05/09/2018 CORI Higgins Primary CORI [place] [id number] Insurance:CARESOURCE FORTNERDOB: [facility] [id number] Number: Repository [address]Yrm: 330 [id number] [phone] () Date:[id number] [address]KR: 05/09/2018 Secondary NOT GIVENUNK [place] Insurance:SELF PAY [facility] Number: Effective Repository Date:2018-02-20 05/08/2018 [place] Primary CORI [place] [id number] Insurance:CARESOURCE FORTNERDOB: [facility] [id number] Number: Repository [address]Woz: 330 [id number] [phone] () Date:[id number] [address]IE: 05/08/2018 Secondary NOT GIVENUNK [place] Insurance:SELF PAY [facility] Number: Effective Repository Date:2018-05-08 04/28/2018 BAR[place] Primary CROI [place] [id number] Insurance:CARESOURCE FORTNERDOB: [facility] [id number] Number: Repository [address]Ntw: 330 [id number] [phone] () Date:[id number] [address]QM: 04/28/2018 Secondary NOT GIVENUNK [place] Insurance:SELF PAY [facility] Number: Effective Repository Date:2018-04-28 04/17/2018 BAR[place] Primary CORI [place] [id number] Insurance:CARESOURCE FORTNERDOB: Community [facility] JUST FOR [facility] [id number] Number: Repository [address]Qlh: 330 [id number] [phone] (HP) Date:7397-37-40HV [address] [place] [address]EQ: 04/17/2018 Secondary NOT GIVENUNK [place] Insurance:SELF PAY [facility] Number: Effective Repository Date:2018-04-17 04/13/2018 BARON Primary CORI [place] [id number] Insurance:CARESOURCE FORTNERDOB: Community [facility] JUST FOR [address]07-23[place] Number: Repository [address]Eru: 330 [id number] [phone] (HP) Date:9063-16-43GM [address] [place] [address]CS: 04/13/2018 Secondary NOT GIVENUNK [place] Insurance:SELF PAY [facility] Number: Effective Repository Date:2018-04-13 04/04/2018 BAR[place] Primary CORI Tucker [id number] Insurance:CARESOURCE FORTNERDOB: Community [facility] JUST FOR [address] Number: Repository [address]Fys: 330 [id number] [phone] (HP) Date:3488-97-09YV [address] [place] [address]ZI: 04/04/2018 Secondary NOT GIVENUNK [place] Insurance:SELF PAY [facility] Number: Effective Repository Date:2018-03-20 04/03/2018 BAR[place] Primary CORI [place] [id number] Insurance:CARESOURCE FORTNERDOB: Community [facility] JUST [place] [address] Number: Repository [address]Hpz: 330 [id number] [phone] (HP) Date:9103-94-80KK [address] [place] [address]WD: 04/03/2018 Secondary NOT GIVENUNK [place] Insurance:SELF PAY [facility] Number: Effective Repository Date:2018-04-02 04/02/2018 CORI Higgins Primary CORI Tucker [id number] Insurance:CARESOURCE FORTNERDOB: Community [facility] FOR [facility] [id number] Number: Repository [address]Cag: 330 [id number] [phone] () Date:4055-49-14TQ [address] [address]HO: 04/02/2018 Secondary NOT GIVENUNK [place] Insurance:SELF PAY [facility] Number: Effective Repository Date:2018-04-02 04/02/2018 BARON Primary CORI Tucker [id number] Insurance:CARESOURCE FORTNERDOB: Community [facility] FOR [facility] [id number] Number: Repository [address]Fns: 330 [id number] [phone] () Date:2947-31-01DA [address] [address]FA: 04/02/2018 Secondary NOT GIVENUNK [place] Insurance:SELF PAY [facility]: Effective Repository Date:2018-04-02 03/26/2018 BARON Primary CORI Tucker [id number] Insurance:CARESOURCE FORTNERDOB: Community [facility] FOR [facility] [id number] [place] Number: Repository [address]Ihm: 330 [id number] [phone] (HP) Date:6301-79-76MV [address] [address]WJ: 03/26/2018 Secondary NOT GIVENUNK Hammond Insurance:SELF PAY [facility] Number: Effective Repository Date:2018-03-26 03/24/2018 BARON Primary CORI Tucker [id number] Insurance:CARESOURCE FORTNERDOB: Community [facility] FOR [place] [id number] [place] Number: Repository [address]Fbm: 330 [id number] [phone] (HP) Date:7881-25-64WA [address] [place] [address]RJ: 03/24/2018 Secondary NOT GIVENUNK Hammond Insurance:SELF PAY [facility] Number: Effective Repository Date:2018-03-24 03/24/2018 BARON Primary BARON Caitlin [id number] Insurance:CARESOURCE FORTNERDOB: Community [facility] FOR [place] [id number] Number: Repository [address]Sdk: 330 [id number] [phone] (HP) Date:8003-14-59VH [address] [address]OU: 03/24/2018 Secondary NOT GIVENUNK [place] Insurance:SELF PAY [facility] Number: Effective Repository Date:2018-03-24 03/17/2018 BARON Primary BARON Caitlin [id number] Insurance:CARESOURCE FORTNERDOB: [facility] JUST [address] Number: Repository [address]Fuq: 330 [id number] [phone] (HP) Date:5374-27-72WS [address] [address]EF: 03/17/2018 Secondary NOT GIVENUNK Hammond Insurance:SELF PAY [facility] Number: Effective Repository Date:2018-03-17 03/17/2018 BARON Primary BARON Caitlin [id number] Insurance:CARESOURCE FORTNERDOB: Community [facility] [address] Number: Repository [address]Hnl: 330 [id number] [phone] (HP) Date:7975-71-34GG [address] [address]MQ: 03/17/2018 Secondary NOT GIVENUNK [place] Insurance:SELF PAY [facility] Number: Effective Repository Date:2018-03-17 03/17/2018 BARON Primary CORI Tucker [id number] Insurance:CARESOURCE FORTNERDOB: Community [facility] FOR [facility] [id number] [place] Number: Repository [address]Wkt: 330 [id number] [phone] () Date:6767-45-72TK [address] [address]ZB: 03/17/2018 Secondary NOT GIVENUNK [place] Insurance:SELF PAY [facility] Number: Effective Repository Date:2018-03-17 03/17/2018 BARON Primary CORI Tucker [id number] Insurance:CARESOURCE FORTNERDOB: [facility] JUST [place] [id number] Number: Repository [address]Pjt: 330 [id number] [phone] (HP) Date:8253-81-71WD [address] [address]SS: 03/17/2018 Secondary NOT GIVENUNK [place] Insurance:SELF PAY [facility] Number: Effective Repository Date:2018-03-17 03/17/2018 BARON Primary CORI Higgins [place] [id number] Insurance:CARESOURCE FORTNERDOB: [facility] JUST [place] [id number] Number: Repository [address]Dwk: 330 [id number] [phone] (HP) Date:8961-51-02JZ [address] [address]PY: 03/17/2018 Secondary NOT GIVENUNK [place] Insurance:SELF PAY [facility] Number: Effective Repository Date:2018-03-17 03/17/2018 BARON Primary CORI Tucker [id number] Insurance:CARESOURCE FORTNERDOB: [facility] [address]07[address]23[place] Number: Repository [address]Dfj: 330 [id number] [phone]) Date:3477-14-74MQ [address] [address]UI: 03/17/2018 Secondary NOT GIVENUNK Caitlin Insurance:SELF PAY [facility] Number: Effective Repository Date:2018-03-17 03/17/2018 BARON Primary CORI Higgins [place] [id number] Insurance:CARESOURCE FORTNERDOB: Community [facility] JUST FOR [facility] [id number] [place] Number: Repository [address]Miw: 330 [id number] [phone] (HP) Date:9666-35-34RY [address] [address]KZ: 03/17/2018 Secondary NOT GIVENUNK Caitlin Insurance:SELF PAY [facility] Number: Effective Repository Date:2018-03-17 03/17/2018 BARON Primary BARON Caitlin [id number] Insurance:CARESOURCE FORTNERDOB: Community [facility] JUST FOR [facility] [id number] [place] Number[place] Repository [address]Gec: 330 [id number] [phone]) Date:3528-52-09EA [address] [address]TG: 03/17/2018 Secondary NOT GIVENUNK Caitlin Insurance:SELF PAY Community [facility] Number: Effective Repository Date:2018-03-17 03/17/2018 BARON Primary BARON Hammond [id number] Insurance:CARESOURCE FORTNERDOB: Community [facility] JUST [facility] [id number] [place] Number: Repository [address]Pyq: 330 [id number] [phone] (HP) Date:3656-39-99OI [address] [address]UQ: 03/17/2018 Secondary NOT GIVENUNK Caitlin Insurance:SELF PAY [facility] Number: Effective Repository Date:2018-03-17 03/17/2018 BARON Primary CORI Tucker [id number] Insurance:CARESOURCE FORTNERDOB: Community [facility] JUST FOR [address] Number: Repository [address]Fhe: 330 [id number] [phone] (HP) Date:0172-57-04GT [address] [address]KU: 03/17/2018 Secondary NOT GIVENUNK [place] Insurance:SELF PAY [facility] Number: Effective Repository Date:2018-03-17 03/17/2018 BARON Primary CORI Tucker [id number] Insurance:CARESOURCE FORTNERDOB: Community [facility] JUST [address] Number: Repository [address]Sdp: 330 [id number] [phone] (HP) Date:4986-13-63XP [address] [address]BB: 03/17/2018 Secondary NOT GIVENUNK Hammond Insurance:SELF PAY [facility] Number: Effective Repository Date:2018-03-17 03/17/2018 BARON Primary CORI Tucker [id number] Insurance:CARESOURCE FORTNERDOB: [facility] JUST [address] Number: Repository [address]Aon: 330 [id number] [phone] (HP) Date:6634-07-60JF [address] [address]AA: 03/17/2018 Secondary NOT GIVENUNK Hammond Insurance:SELF PAY [facility] Number: Effective Repository Date:2018-03-17 03/14/2018 BARON Primary CORI Tucker [id number] Insurance:CARESOURCE FORTNERDOB: Community [facility] JUST [address] Number: Repository [address]Kak: 330 [id number] [phone] (HP) Date:6907-92-38JY [address] [address]UR: 03/14/2018 Secondary NOT GIVENUNK Caitlin Insurance:SELF PAY [facility] Number: Effective Repository Date:2018-03-14 03/14/2018 CORI Higgins Primary CORI Tucker [id number] Insurance:CARESOURCE FORTNERDOB: Community [facility] JUST [facility] [id number] [place] Number: Repository [address]Drp: 330 [id number] [phone] () Date:9780-89-96YT [address] [address]RD: 03/14/2018 Secondary NOT GIVENUNK Hammond Insurance:SELF PAY [facility] Number: Effective Repository Date:2018-03-12 03/13/2018 BARON Primary CORI Tucker [id number] Insurance:CARESOURCE FORTNERDOB: [facility] [id number] [place] Number: Repository [address]Fnv: 330 [id number] [phone] () Date:7875-89-16RX [address] [address]WJ: 03/13/2018 Secondary NOT GIVENUNK Caitlin Insurance:SELF PAY [facility] Number: Effective Repository Date:2018-03-13 03/07/2018 BARON Primary CORI Tucker [id number] Insurance:CARESOURCE FORTNERDOB: [facility] [id number] [place] Number: Repository [address]Tpq: 330 [id number] [phone] () Date:4125-06-21TW [address] [address]IP: 03/07/2018 Secondary NOT GIVENUNK Hammond Insurance:SELF PAY [facility] Number: Effective Repository Date:2018-03-07 03/07/2018 BARON Primary CORI Tucker [id number] Insurance:CARESOURCE FORTNERDOB: Community [facility] JUST FOR [facility] 1626-06-64NIFWells [place] Number: Repository [address]Mkp: 330 [id number] [phone] (HP) Date:1748-49-48JO [address] [address]JA: 03/07/2018 Secondary NOT GIVENUNK Hammond Insurance:SELF PAY [facility] Number: Effective Repository Date:2018-02-25 03/04/2018 BARON Primary CORI Tucker [id number] Insurance:CARESOURCE FORTNERDOB: Community [facility] FOR [place] [id number] [place] Number: Repository [address]Bun: 330 [id number] [phone] (HP) Date:4241-05-39SU [address] [address]LU: 03/04/2018 Secondary NOT GIVENUNK Caitlin Insurance:SELF PAY [facility] Number: Effective Repository Date:2018-03-04 03/03/2018 BARON Primary CORI Tucker [id number] Insurance:CARESOURCE FORTNERDOB: Community [facility] FOR [place] [id number] [place] Number: Repository [address]Nwn: 330 [id number] [phone] (HP) Date:5488-25-92UV [address] [place] [address]LT: 03/03/2018 Secondary NOT GIVENUNK Caitlin Insurance:SELF PAY [facility] Number: Effective Repository Date:2018-02-25 02/25/2018 BARON Primary CORI Tucker [id number] Insurance:CARESOURCE FORTNERDOB: Community [facility] JUST [place] [address] Number: Repository [address]Yqs: 330 [id number] [phone] (HP) Date:4527-21-07FB [address] [address]TZ: 02/25/2018 Secondary NOT GIVENUNK Caitlin Insurance:SELF PAY [facility] Number: Effective Repository Date:2018-02-25 02/25/2018 CORI Higgins Primary CORI Tucker [id number] Insurance:CARESOURCE FORTNERDOB: Community [facility] JUST FOR [facility] [id number] [place] Number: Repository [address]Mzf: 330 [id number] [phone] () Date:9566-43-82HG [address] [address]HY: 02/25/2018 Secondary NOT GIVENUNK Hammond Insurance:SELF PAY [facility] Number: Effective Repository Date:2018-02-25 02/18/2018 BARON Primary CORI Tucker [id number] Insurance:CARESOURCE FORTNERDOB: Community [facility] JUST FOR [facility] [id number] [place] Number: Repository [address]Vat: 330 [id number] [phone] () Date:9141-45-05VA [address] [address]IW: 02/18/2018 Secondary NOT GIVENUNK Caitlin Insurance:SELF PAY [facility] Number: Effective Repository Date:2018-02-18 02/14/2018 BARON Primary CORI Tucker [id number] Insurance:CARESOURCE FORTNERDOB: Community [facility] JUST FOR [facility] [id number] [place] Number: Repository [address]Kzp: 330 [id number] [phone] (HP) Date:4042-88-08KU [address] [address]MS: 02/14/2018 Secondary NOT GIVENUNK Hammond Insurance:SELF PAY [facility] Number: Effective Repository Date:2018-02-13 02/13/2018 BARON Primary CORI Tucker [id number] Insurance:CARESOURCE FORTNERDOB: Community [facility] JUST FOR [place] [id number] [place] Number: Repository [address]Feo: 330 [id number] [phone] (HP) Date:0524-68-56FM [address] [place] [address]ZP: 02/13/2018 Secondary NOT GIVENUNK Caitlin Insurance:SELF PAY [facility] Number: Effective Repository Date:2018-02-13 02/13/2018 BARON Primary BARON Hammond [id number] Insurance:CARESOURCE FORTNERDOB: Community [facility] JUST FOR [place] [id number] [place] Number: Repository [address]Mgw: 330 [id number] [phone]) Date:0785-39-04EV [address] [address]FS: 02/13/2018 Secondary NOT GIVENUNK Hammond Insurance:SELF PAY [facility] Number: Effective Repository Date:2018-02-13 02/11/2018 BARON Primary BARON Caitlin [id number] Insurance:CARESOURCE FORTNERDOB: [facility] JUST [address]07-23[place] Number: Repository [address]Tmu: 330 [id number] [phone] (HP) Date:5219-90-39XO [address] [address]RO: 02/11/2018 Secondary NOT GIVENUNK Hammond Insurance:SELF PAY [facility] Number: Effective Repository Date:2018-02-07 02/10/2018 BARON Primary BARON Hammond [id number] Insurance:CARESOURCE FORTNERDOB: Community [facility] [place] [address] Number: Repository [address]Yua: 330 [id number] [phone] (HP) Date:9811-22-44VZ [address] [place] [address]KA: 02/10/2018 Secondary NOT GIVENUNK Hammond Insurance:SELF PAY [facility] Number: Effective Repository Date:2018-02-07 01/31/2018 CORI Higgins Primary CORI Tucker [id number] Insurance:CARESOURCE FORTNERDOB: Community [facility] [id number] [place] Number[place] Repository [address]Uxx: 330 [id number] [phone] () Date:6376-68-63HT [address] [place] [address]JQ: 01/31/2018 Secondary NOT GIVENUNK Hammond Insurance:SELF PAY [facility] Number: Effective Repository Date:2018-01-27 01/27/2018 CORI AGUIRRE Primary CORI Tucker [id number] Insurance:CARESOURCE FORTNERDOB: [facility] [place] 144834-07-23[place] Number: Repository [address]Aog: 330 [id number] [phone] () Date:2807-92-30IK [address] [place] [address]OP: 01/27/2018 Secondary NOT GIVENUNK Caitlin Insurance:SELF PAY [facility] Number: Effective Repository Date:2018-01-27
== END ==
PROVIDERS: Family Provider Family Medicine; PCP Family Medicine; Referring Provider Nurse Practitioner Family; Visit Provider Nurse Practitioner Family
DX: R06.09 Other forms of dyspnea (principal); C82.20 Follicular lymphoma grade III, unspecified, unspecified site; R06.89 Other abnormalities of breathing
CPT/HCPCS: 71046

== ENCOUNTER → 2018-04-03 14:15 | Outpatient (CLI) | payer OTHER, SELFPAY ==
[2018-04-02 09:00] VITALS: BMI 31.2
--- NOTE | 2018-04-03 14:17 | US_ITS ---
PROCEDURE: ULTRASOUND GUIDED THORACENTESIS. DATE: April 03, 2018. INDICATION: Female, 62 years old. Left pleural effusion PHYSICIAN: Denny Juarez M.D. PROCEDURE: The risks, benefits, and alternatives to the procedure were explained to the patient. The specific risks of bleeding, infection, and pneumothorax requiring chest tube insertion were discussed and accepted. Written informed consent was obtained. Ultrasonographic evaluation of the left lower pleural space was carried out. An adequate pocket was identified. The patient was placed in the sitting, upright position. The overlying skin was prepped and draped in sterile fashion. 1% lidocaine was administered subcutaneously for local anesthesia. Under ultrasound guidance, a 5 [place] thoracentesis needle/catheter system was advanced into the left posterior lower pleural fluid collection. Approximately 1850 mL of mary-colored fluid was drained. The catheter was removed, and a sterile dressing was applied. The patient tolerated the procedure well. A chest x-ray was ordered. US/Thoracentesis W US IMPRESSION: Ultrasound-guided left thoracentesis. Electronically Signed: Denny Juarez MD at 16:00 EST Tel [phone], Service support ,
--- NOTE | 2018-04-03 14:57 | RAD_ITS ---
STUDY: X-RAY CHEST REASON FOR EXAM: Female, 62 years old. Status post left thoracentesis. TECHNIQUE: AP inspiration and expiration views. COMPARISON: Comparison is made with prior study dated April 02, 2018. FINDINGS: The patient is status post left thoracentesis. There is no evidence of pneumothorax. Small residual left pleural effusion with underlying atelectasis. RAD/Chest Insp/Exp 2 View IMPRESSION: Status post left thoracentesis. There is no evidence pneumothorax. Residual pleural parenchymal changes at the left lung base. Electronically Signed: Denny Juarez MD at 15:06 EST Tel [phone], Service support ,
[2018-04-03 15:43] VITALS: BP 110/56; BP 115/55; BP 119/60; BP 136/61; BP 92/62; PULSE 63; PULSE 69; PULSE 72; PULSE 74; RESP 16; RESP 18; O2SAT 94; O2SAT 95; O2SAT 98
== END ==
PROVIDERS: Family Provider Family Medicine; PCP Family Medicine; Referring Provider Nurse Practitioner Family; Visit Provider Nurse Practitioner Family
DX: J90 Pleural effusion, not elsewhere classified (principal)
CPT/HCPCS: 32555; 71046

== ENCOUNTER 2018-04-13 18:12 | Emergency (ER) | payer OTHER, SELFPAY ==
[2018-04-04 10:23] VITALS: BMI 29.8
[2018-04-13 18:13] VITALS: BP 126/72; PULSE 74; RESP 16; TEMP 36.9; O2SAT 96; BMI 28.5
[2018-04-13 20:33] LABS: Absolute Lymphocyte Count 1.42 X10^3/ul (0.83-4.51); Absolute Neutrophil Count 9.4 X10^3/uL (2.0-7.7); Basophil# 0.05 X10^3/uL; Basophil% 0.4 % (0-1); Differential Indicated SCAN CRITERIA MET; Eosinophil# 0.08 X10^3/uL; Eosinophils% 0.7 % (0-5); Hemoglobin 11.7 g/dl (12.0-15.0); Lymphocyte # 1.42 X10^3/ul (4.0); Lymphocyte % 11.8 % (19-41); Mean Corp Hgb Conc 32.5 g/gl (32-36); Mean Corpuscular Hgb 29.5 pg (27.0-32.0); Mean Corpuscular Volume 90.9 fL (81-99); Mean Platelet Vol. 11.5 fl (6.2-12.0); Monocyte# 1.05 X10^3/uL; Monocyte% 8.8 % (0-10); Neutrophil # 9.38 X10^3/uL (2.7-7.7); Neutrophil % 78.1 % (47-70); POSITIVE COUNT NO; POSITIVE DIFFERENTIAL NO; POSITIVE MORPHOLOGY YES; Platelet Count 476 K/mm3 (150-450); RBC Distribution Width CV 15.6 % (11.6-14.6); RBC Distribution Width SD 51.3 fl (35.1-43.9); Red Blood Count 3.96 M/mm3 (4.2-5.4)
[2018-04-13 20:57] LABS: Differential Comment SCANNED
--- NOTE | 2018-04-13 22:40 | ED.RN ---
Addendum entered by Emma Ramsey 04/13/18 22:47: DR. LE NOTIFIED. Original Note: PATIENT NOSE CONTINUES TO DRIP BLOOD AFTER REMOVING NOSE CLIP.
[2018-04-13 22:45] VITALS: BP 123/68; PULSE 74; RESP 16; O2SAT 96
--- NOTE | 2018-04-14 00:09 | ED.VISSUMM ---
- ER Visit Summary Date of Service: 04/14/18 Chief Complaint: Bleeding from right naris History of Present Illness: The patient is a 62 F history of follicular lymphoma grade 3 presents with spontaneous epistaxis right after sneezing and blowing her nose. She has history of thrombocytopenia. She recently received chemotherapy. She denies fever, chills night sweats. Denies facial pain. She states she had blood coming anteriorly and posteriorly. She denied any respiratory symptoms. She denies GI symptoms. She denies allergies to antibiotics. Physical Examination: Thin 62-year-old woman who appears in no distress. Blood noted right vestibule. Vital signs are unremarkable. Blood pressure is slightly elevated 123/68. She is not hypoxic nor is she febrile. She appears slightly pale. Posterior pharynx mild blood posterior pharynx. Uvula midline. Trachea midline. No stridor. Lungs are clear. Heart is regular. No petechia purpura noted. No bruising noted. Test Results: White count slightly elevated with an H&H 7.7 and 36.0. Platelet counts 476. Emergency Department Course and Treatment: Pressure was applied to the nose. When pressure was removed she began to bleed again. CBC was obtained because of history of cancer with recent chemotherapy to assess H&H as well as platelet count. Treatment Plan: Right naris was anesthetized using [place] solution. A 7.5 cm posterior Rhino Rocket was placed since blood was noted above the inferior turbinate. There is no active bleeding or evidence of recent bleeding over Calci-Mix plexus. Disposition: Patient was ambulated. There is no further bleeding. Impression: Epistaxis right This note was generated with Lessno dictation software. It may contain incorrect words, spelling, and punctuation that were not noted in review of the chart prior to signing ED Disposition - Plan for ED Patient: Disposition: Home or Assisted Living Chief Complaint: Nosebleed Instructions: Nosebleed Prescriptions: Amoxicillin [Amoxil] 500 mg PO Q8H #14 cap Referrals: Michael Tanner MD [Primary Care Provider] - Carlos Villalobos MD [STAFF PHYSICIAN] - 04/18/18 Additional Instructions: Take the amoxicillin until gone. Call Dr. Addison Villalobos's office in the morning to be seen on Saturday.
[2018-04-14] MEDS: AMOXICILLIN 500 MG CAPSULE PO (00:17)
[2018-04-14 00:26] VITALS: BP 119/75; PULSE 73; RESP 16; O2SAT 97
== END 2018-04-14 00:27 | disposition home or self-care (01) ==
PROVIDERS: Emergency Provider Emergency Medicine; Family Provider Family Medicine; PCP Family Medicine
DX: R04.0 Epistaxis (principal); D69.6 Thrombocytopenia, unspecified; C82.20 Follicular lymphoma grade III, unspecified, unspecified site; I50.9 Heart failure, unspecified; Z79.82 Long term (current) use of aspirin; Z79.52 Long term (current) use of systemic steroids; Z79.891 Long term (current) use of opiate analgesic; Z79.899 Other long term (current) drug therapy
CPT/HCPCS: 30903; 36415; 85025; 99283

== ENCOUNTER → 2018-05-22 13:14 | Outpatient (CLI) | payer OTHER, SELFPAY ==
[2018-05-08 09:12] VITALS: BMI 28.1
[2018-05-19 10:37] VITALS: BMI 28.1
--- NOTE | 2018-05-22 13:17 | CT_ITS ---
STUDY: CT CHEST WITH CONTRAST REASON FOR EXAM: Female, 62 years old. History of lymphoma. RADIATION DOSAGE (If Supplied By Facility): CTDIvol = ( 12.32 ) mGy, DLP = ( 328.09 ) mGycm TECHNIQUE: Transaxial imaging was performed following intravenous administration of 100 ml of Isovue 300 contrast material. Individualized dose optimization techniques were used for this CT. COMPARISON: 03/17/2018. FINDINGS: There is moderate to large left pleural effusion and smaller right pleural effusion markedly decreased since the previous examination. There is improved compressive atelectatic changes in the lower lungs. There is a small pleural-based nodular density in the right lower lobe measuring about 5 mm. Normal heart and pericardium. The previously noted mediastinal adenopathy has markedly improved. There may be residual node in the subcarinal region. Normal hilar regions. Normal enhanced pulmonary arteries. There is atherosclerotic calcification of the aortic arch with tortuosity and elongation of the aortic arch and descending thoracic aorta. There are multi-level degenerative changes of the thoracic spine. The upper abdomen is reported separately. CT/Chest WITH Contrast IMPRESSION: 1. Bilateral pleural effusions markedly decreased since the previous examination. 2. Improved atelectatic changes in the lower lungs. 3. Improved mediastinal adenopathy. Electronically Signed: Ricardo Lopez MD at 13:49 EST Tel , Service support ,
--- NOTE | 2018-05-22 13:17 | CT_ITS ---
STUDY: CT ABDOMEN AND PELVIS WITH CONTRAST REASON FOR EXAM: Female, 62 years old. History of lymphoma. RADIATION DOSAGE (If Supplied By Facility): CTDIvol = ( 14.82 ) mGy, DLP = ( 674.89 ) mGycm TECHNIQUE: Transaxial images were obtained from the dome of the diaphragm to the symphysis pubis without oral contrast. 100 ml of Isovue 300 contrast was administered. Sagittal and coronal images were reconstructed. Individualized dose optimization techniques were used for this CT. COMPARISON: 02/14/2018. FINDINGS: The visualized portions of the lung bases demonstrate moderate to large left pleural effusion and small right pleural effusion decreased since the previous examination. There are again atelectatic changes in the lower lungs. The heart size is normal. There is questionable trace of pericardial effusion. The liver is enlarged. The gallbladder is contracted. There is a defect in the posterior aspect of the spleen abutting the diaphragm unchanged since the prior examination. Normal pancreas. Normal bilateral adrenal glands. Normal right kidney. Normal left kidney. Normal visualized stomach. There are nonspecific fluid-filled small bowel loops. There is no evidence of small bowel obstruction. There is fecal retention. The appendix is visualized and appears normal. There is diffuse atherosclerotic calcification of the abdominal aorta, without a demonstrated aneurysm. Normal inferior vena cava. The previously noted retroperitoneal adenopathy in the periaortic and pericaval regions are markedly decreased in size since the previous examination. Residual small nodes are seen. Iliac chain nodes in the pelvic lesion are again seen and again appears to be somewhat decreased since previous exam. The previously noted noted bilateral inguinal nodes have decreased in size as well but not completely resolved. The urinary bladder is not well-distended. Normal abdominal wall. There are diffuse degenerative changes of the visualized lumbar spine. There is mild dextroscoliosis. There is partial sacralization of the last lumbar vertebra on the left side. CT/Abdomen/Pelvis W IV Cont ONLY IMPRESSION: 1. Bilateral pleural effusions decreased in size since the previous exam. 2. Questionable trace of pericardial effusion. 3. Retroperitoneal and pelvic adenopathy markedly decreased in size since previous exam but not completely resolved. 4. Nonspecific fluid-filled small bowel loops suboptimally evaluated without oral contrast. No evidence of small bowel obstruction. Mild ileus or enteritis are possible. 5. Hepatomegaly. 6. Defect in the spleen unchanged since the prior examination. Electronically Signed: Ricardo Lopez MD at 13:25 EST Tel , Service support ,
--- NOTE | 2018-05-22 13:17 | CT_ITS ---
STUDY: CT SOFT TISSUE NECK WITH CONTRAST REASON FOR EXAM: Female, 62 years old. History of lymphoma. RADIATION DOSAGE (If Supplied By Facility): CTDIvol = ( 13.80 ) mGy, DLP = ( 334.19 ) mGycm TECHNIQUE: The patient was scanned in a multi-detector CT scanner. High resolution transaxial imaging was performed following intravenous administration of 100 ml of Isovue 300 contrast material. Sagittal and coronal images were reconstructed. Individualized dose optimization techniques were used for this CT. COMPARISON: None. FINDINGS: Normal bilateral parotid glands. Normal bilateral lpn per diem spaces. Normal bilateral parapharyngeal spaces. Normal bilateral carotid spaces. The submandibular glands bilaterally are slightly prominent but symmetric. Normal visualized nasopharynx. Normal retropharyngeal space. Normal perivertebral space. Normal visualized bilateral faucial tonsils. The visualized tongue, tongue base and oropharynx are normal. There are few small nodes in the left carotid space. There is a small soft tissue density in the left posterior triangle. There is no demonstrated solid or cystic mass lesion. There is no abnormal contrast enhancement. Normal epiglottis, bilateral vallecula and hypopharynx. The pre-epiglottic and paraglottic adipose spaces are normal. Normal visualized bilateral piriform sinuses, aryepiglottic folds, vocal cords, and arytenoid-cricoid articulations. Normal subglottic trachea. Normal bilateral lobes of the thyroid gland. The visualized portions of the lungs demonstrate large left pleural effusion. Normal visualized paranasal sinuses. There are degenerative changes of the cervical spine at the levels of C4-C5 and C5-C6 with mild retrolisthesis of C4 over C5. CT/Soft Tissue Neck WITH Contrast IMPRESSION: 1. Few small nodes in the left carotid space and left posterior triangle. Follow-up exam might be helpful. 2. Otherwise no evidence of adenopathy. 3. Unremarkable airway. Electronically Signed: Ricardo Lopez MD at 13:42 EST Tel , Service support ,
== END ==
PROVIDERS: Family Provider Family Medicine; PCP Family Medicine; Referring Provider Internal Medicine Hematology & Oncology; Visit Provider Internal Medicine Hematology & Oncology
DX: C82.20 Follicular lymphoma grade III, unspecified, unspecified site (principal); Z79.899 Other long term (current) drug therapy
CPT/HCPCS: 70491; 71260; 74177; Q9967; A4216

== ENCOUNTER → 2018-07-04 10:39 | Outpatient (CLI) | payer OTHER, SELFPAY ==
[2018-07-03 09:58] VITALS: BMI 27.3
[2018-07-04 13:06] LABS: Cholesterol 107 mg/dL (200); High Density Lipoprotein 37 mg/dL; Triglycerides 112 mg/dL; Very Low Density Lipoprotein 22 mg/dL (5-40)
[2018-07-04 13:24] LABS: Vitamin D,25 Hydroxy 39.5 ng/mL (29.95-100.01)
== END ==
PROVIDERS: Family Provider Family Medicine; PCP Family Medicine; Referring Provider Family Medicine; Visit Provider Family Medicine
DX: I25.10 Atherosclerotic heart disease of native coronary artery without angina pectoris (principal); E55.9 Vitamin D deficiency, unspecified
CPT/HCPCS: 36415; 80061; 82306

== ENCOUNTER → 2018-07-16 08:32 | Outpatient (CLI) | payer OTHER, SELFPAY ==
[2018-07-01 14:14] VITALS: BMI 27.2
[2018-07-11 15:27] VITALS: BMI 27.1
--- NOTE | 2018-07-16 08:33 | ECHODONC_ITS ---
Reason For Study: DYSPNEA/SOB Procedure This was a 2D Doppler, Color Flow transthoracic echocardiogram. Myocardial strain analysis was performed in this exam to aid in the assessment of cardiac function. Exam performed in department. Left Ventricle Normal LV size. The estimated ejection fraction is 50 %. The global longitudinal strain is normal. The global longitudinal strain = -18.7 % (normal). Normal diastology for age. No regional wall motion abnormalities noted. Right Ventricle Normal RV size. Normal systolic function. Mitral Valve Normal mitral valve. Mild (1+) eccentric mitral valve insufficiency. Tricuspid Valve Normal tricuspid valve. Mild tricuspid valve insufficiency. Pulmonary artery systolic pressure is 24 mmHg. Aortic Valve Trisinus/trileaflet aortic valve. Pulmonic Valve Normal pulmonic valve. Great Vessels Normal aortic root. The pulmonary artery is normal size. Normal inferior vena cava. Pericardium/Pleural No pericardial effusion. MMode/2D Measurements & Calculations LVIDd: 4.3 cm IVSd: 0.81 cm Ao root diam: 2.9 cm LVIDs: 3.2 cm LVPWd: 1.1 cm RVDd: 3.5 cm FS: 25.3 % LAV(MOD-bp): 62.5 ml LA A4 area: 18.0 cm2 LA dimension(2D): 3.6 cm LAV(MOD-bp) Indexed: 37.1 ml/m2 LAV(MOD-sp2): 57.7 ml LAV(MOD-sp4): 54.5 ml RA A4 area: 12.0 cm2 Doppler Measurements & Calculations MV E max delfin: 86.4 cm/sec Lat Peak E' Delfin: 11.5 cm/sec Med Peak E' Delfin: 8.3 cm/sec MV A max delfin: 63.2 cm/sec E/E' lat: 7.5 E/E' med: 10.3 MV E/A: 1.4 Ao V2 max: 130.2 cm/sec LV V1 max: 121.8 cm/sec PA V2 max: 90.5 cm/sec Ao max P.8 mmHg LV V1 max P.9 mmHg TR max delfin: 230.6 cm/sec TR max P.3 mmHg Interpretation Summary Normal LV size. The estimated ejection fraction is 50 %. The global longitudinal strain is normal. The global longitudinal strain = -18.7 % (normal). Mild (1+) eccentric mitral valve insufficiency. Mild tricuspid valve insufficiency. Ordering Physician: Matias Tapia Referring Physician: Michael Tanner Performed By: Aisha Slaughter, [place], RVT
== END ==
PROVIDERS: Family Provider Family Medicine; PCP Family Medicine; Referring Provider Internal Medicine Cardiovascular Disease; Visit Provider Internal Medicine Cardiovascular Disease
DX: R06.02 Shortness of breath (principal); R06.00 Dyspnea, unspecified; C82.24 Follicular lymphoma grade III, unspecified, lymph nodes of axilla and upper limb; I50.31 Acute diastolic (congestive) heart failure
CPT/HCPCS: 0399T; 93306

== ENCOUNTER → 2019-02-09 | Outpatient (CLI) | payer MEDICARE, OTHER, SELFPAY ==
[2018-11-20 11:31] VITALS: BMI 29.8
[2019-01-21 08:29] VITALS: BMI 30.2
--- NOTE | 2019-02-09 08:04 | CT_ITS ---
STUDY: CT SOFT TISSUE NECK WITH CONTRAST REASON FOR EXAM: Female, 63 years old. Post lymphoma therapy RADIATION DOSAGE (If Supplied By Facility): CTDIvol = ( 15.20 ) mGy, DLP = ( 1675.88 ) mGycm TECHNIQUE: The patient was scanned in a multi-detector CT scanner. High resolution transaxial imaging was performed following intravenous administration of IV 100mL Isovue-300 100mL. Sagittal and coronal images were reconstructed. Individualized dose optimization techniques were used for this CT. COMPARISON: May 22, 2018 FINDINGS: Normal bilateral parotid glands. Normal bilateral acid washer operator spaces. Normal bilateral parapharyngeal spaces. Normal bilateral carotid spaces. Normal bilateral sublingual and submandibular glands and spaces. Normal visualized nasopharynx. Normal retropharyngeal space. Normal perivertebral space. Normal visualized bilateral faucial tonsils. The visualized tongue, tongue base and oropharynx are normal. Small subcentimeter bilateral deep and superficial cervical nodes likely benign utilizing CT size and morphologic criteria Normal epiglottis, bilateral vallecula and hypopharynx. The pre-epiglottic and paraglottic adipose spaces are normal. Normal visualized bilateral piriform sinuses, aryepiglottic folds, vocal cords, and arytenoid-cricoid articulations. Normal subglottic trachea. Normal bilateral lobes of the thyroid gland. Normal visualized pulmonary apices. Normal visualized paranasal sinuses. Cervical spine demonstrates degenerative changes. No significant change since prior exam CT/Soft Tissue Neck WITH Contrast IMPRESSION: No definitive evidence for malignant adenopathy.. PET scan would be helpful for further assessment if clinically warranted Electronically Signed: Dylan Elizabeth MD at 16:54 EDT , Service support ,
--- NOTE | 2019-02-09 08:04 | CT_ITS ---
STUDY: CT ABDOMEN AND PELVIS WITH CONTRAST REASON FOR EXAM: Female, 63 years old. Lymphoma for follow-up. No new complaints. RADIATION DOSAGE (If Supplied By Facility): CTDIvol = ( 15.20 ) mGy, DLP = ( 1675.88 ) mGycm TECHNIQUE: Transaxial images were obtained from the dome of the diaphragm to the symphysis pubis without oral contrast. IV 100mL Isovue-300 100mL was administered. Sagittal and coronal images were reconstructed. Individualized dose optimization techniques were used for this CT. COMPARISON: May 22, 2018. February 14, 2018 and PET/CT scan August 18, 2018. FINDINGS: The visualized lung bases are unremarkable. Left pleural effusion present previously has resolved. The visualized portions of the heart are within normal limits. Normal liver. Normal gallbladder and extrahepatic biliary system. Normal spleen. Normal pancreas. Normal bilateral adrenal glands. Normal right kidney. Normal left kidney. Normal visualized stomach. Normal small intestine. Normal colon. There is non-visualization of the appendix. There is atherosclerotic calcification of the abdominal aorta, without a demonstrated aneurysm. Normal inferior vena cava. Normal retroperitoneum. No intra-abdominal free air. Normal urinary bladder. Uterus grossly normal. No adnexal mass is seen. Left pelvic sidewall mass measuring 3.1 x 2.8 cm axial image 77 series 4 not significantly changed. No corresponding increased glucose metabolism on PET scan. Subcentimeter inguinal lymph nodes bilaterally. Normal abdominal wall. Subtle heterogeneous appearance of the bones of the spine and pelvis unchanged from May 2018 but new since February 2018.. No lytic lesions. CT/Abdomen/Pelvis W IV Cont ONLY IMPRESSION: No acute findings in the abdomen or pelvis. Persistent enlarged left pelvic side wall lymph node not significantly changed. Resolution of left pleural effusion. Subtle heterogeneous appearance of the bones unchanged since the prior study but new since February 2018. No lytic lesions. Electronically Signed: Owen Birmingham MD at 1:25 EDT , Service support ,
--- NOTE | 2019-02-09 08:04 | CT_ITS ---
STUDY: CT CHEST WITH CONTRAST REASON FOR EXAM: Female, 63 years old. Lymphoma for follow-up. No present complaints. RADIATION DOSAGE (If Supplied By Facility): CTDIvol = ( 15.20 ) mGy, DLP = ( 1675.88 ) mGycm TECHNIQUE: Transaxial imaging was performed following intravenous administration of IV 100mL Isovue-300 100mL. Individualized dose optimization techniques were used for this CT. COMPARISON: May 22, 2018. FINDINGS: The lungs are normal. There is no demonstrated pleural abnormality. Previously noted bilateral pleural effusions have resolved. Normal heart and pericardium. Right internal jugular port with tip in right atrium. Normal mediastinum. Normal hilar regions. Normal enhanced pulmonary arteries. Normal aorta arch and descending thoracic aorta. Mild degenerative changes of the thoracic spine. There is no demonstrated abnormality of the visualized upper abdomen. CT/Chest WITH Contrast IMPRESSION: No acute findings in the chest. No mediastinal, hilar or axillary lymphadenopathy. Resolution of previously noted bilateral pleural effusions. Electronically Signed: Owen Birmingham MD at 4:39 EDT , Service support ,
[2019-02-09 08:15] LABS: CREATININE FINGERSTICK 0.7 mg/dL (0.55-1.02)
== END | disposition home or self-care (01) ==
LOC: CT 08:03
PROVIDERS: Family Provider Family Medicine; PCP Family Medicine; Referring Provider Internal Medicine Hematology & Oncology; Visit Provider Internal Medicine Hematology & Oncology
DX: C82.20 Follicular lymphoma grade III, unspecified, unspecified site (principal)
CPT/HCPCS: 70491; 71260; 74177; Q9967; A4216

== ENCOUNTER → 2019-03-04 10:52 | Outpatient (CLI) | payer MEDICARE, OTHER, SELFPAY ==
[2019-02-12 11:14] VITALS: BMI 30.7
--- NOTE | 2019-03-04 10:55 | BI_ITS ---
MAMMOGRAPHY - BILATERAL SCREENING REASON FOR EXAM: Female, 63 years old. Routine annual screening examination. PERTINENT HISTORY: Mother with breast cancer. TECHNIQUE: Digital bilateral breast adis (3D mammographic acquisition) in the CC and MLO projections. 2-D mediolateral oblique (MLO) and craniocaudad (CC) views of both breasts were obtained. CAD: Full Field Digital Mammography with Computer Added Detection was performed. COMPARISON: Comparison is made with prior examination dated March 03, 2018. FINDINGS: Breast Composition: The breasts are heterogeneously dense, which may obscure small masses. There are no dominant masses or suspicious calcifications. The previously seen left axillary masses are not seen at this time. No other significant abnormalities are identified. BI/SCREEN MAMM (CAD) W/ADIS BILAT IMPRESSION: Stable bilateral screening mammogram. The previously seen left axillary masses are not seen at this time. Yearly follow-up mammogram recommended. (A) ASSESSMENT CATEGORY: BIRADS Category 2: Benign. A letter regarding these results will be sent to the patient by the facility within 30 days. Approximately 10% of breast cancers are not detected by mammography. A normal mammogram should not delay biopsy of a clinically suspicious abnormality. [id number] Electronically Signed: Denny Juarez, at 12:50 EST , Service support ,
== END ==
PROVIDERS: Family Provider Family Medicine; PCP Family Medicine; Referring Provider Internal Medicine Hematology & Oncology; Visit Provider Internal Medicine Hematology & Oncology
DX: Z12.31 Encounter for screening mammogram for malignant neoplasm of breast (principal)
CPT/HCPCS: 77063; 77067

== ENCOUNTER → 2019-03-31 08:32 | Outpatient (CLI) | payer MEDICARE, OTHER, SELFPAY ==
[2019-02-12 11:14] VITALS: BMI 30.7
[2019-03-31 10:07] LABS: Absolute Lymphocyte Count 1.35 X10^3/uL (0.83-4.51); Absolute Neutrophil Count 5.3 X10^3/uL (2.0-7.7); Basophil# 0.03 X10^3/uL; Basophil% 0.4 % (0-1); Eosinophil# 0.12 X10^3/uL; Eosinophils% 1.5 % (0-5); Hematocrit 39.2 % (37-47); Hemoglobin 12.6 g/dL (12.0-15.0); Lymphocyte # 1.35 X10^3/ul (4.0); Lymphocyte % 17.2 % (19-41); Mean Corp Hgb Conc 32.1 g/dL (32-36); Mean Corpuscular Hgb 30.1 pg (27.0-32.0); Mean Corpuscular Volume 93.8 fL (81-99); Mean Platelet Vol. 12.3 fl (6.2-12.0); Monocyte# 1.03 X10^3/uL; Monocyte% 13.2 % (0-10); NRBC Flagged by Analyzer 0 % (0-5); Neutrophil # 5.28 X10^3/uL (2.7-7.7); Neutrophil % 67.4 % (47-70); Platelet Count 223 K/mm3 (150-450); RBC Distribution Width CV 14.8 % (11.6-14.6); RBC Distribution Width SD 51.3 fl (35.1-43.9); Red Blood Count 4.18 M/mm3 (4.2-5.4); White Blood Count 7.8 K/mm3 (4.4-11.0)
[2019-03-31 10:25] LABS: ALB/GLOB Ratio 1.1 RATIO (0.9-2.4); AST(SGOT) 27 U/L (15-37); Alanine Aminotransfer ALT/SGPT 32 U/L (13-56); Albumin, Serum 3.8 g/dL (3.2-5.0); Alkaline Phosphatase 86 U/L (45-117); Anion Gap 3 (5-15); BUN 18 mg/dL (7-18); BUN/Creat Ratio 27.7 RATIO (10-20); Calcium,Total 9.8 mg/dL (8.5-10.1); Chloride 103 mmol/L (98-107); Cholesterol 169 mg/dL (200); Creatinine, Serum 0.65 mg/dL (0.55-1.02); EST Glomerular Filtration Rate 97 mL/min (>60); Est Glom Filt Rate - Afr Amer 118 mL/min (>60); Globulin 3.6 g/dL (2.2-4.2); Glucose 74 mg/dL (74-106); High Density Lipoprotein 85 mg/dL; Protein, Total 7.4 g/dL (6.4-8.2); Sodium Level 135 mmol/L (136-145); Triglycerides 67 mg/dL; Very Low Density Lipoprotein 13 mg/dL (5-40)
[2019-03-31 10:29] LABS: Vitamin D,25 Hydroxy 25.8 ng/mL (29.95-100.01)
== END ==
PROVIDERS: Family Provider Family Medicine; PCP Family Medicine; Referring Provider Family Medicine; Visit Provider Family Medicine
DX: E55.9 Vitamin D deficiency, unspecified (principal); I25.10 Atherosclerotic heart disease of native coronary artery without angina pectoris
CPT/HCPCS: 36415; 80053; 80061; 82306; 85025

== ENCOUNTER → 2019-09-29 | Outpatient (CLI) | payer MEDICARE, OTHER, SELFPAY ==
[2019-08-13 11:15] VITALS: BMI 34.2
[2019-09-29 10:26] LABS: Vitamin D,25 Hydroxy 62.8 ng/mL
[2019-09-29 10:34] LABS: Cholesterol 148 mg/dL (200); High Density Lipoprotein 75 mg/dL; Triglycerides 64 mg/dL; Very Low Density Lipoprotein 13 mg/dL (5-40)
== END | disposition home or self-care (01) ==
LOC: MFPLAB 08:26
PROVIDERS: PCP Family Medicine; Referring Provider Family Medicine; Visit Provider Family Medicine
DX: I25.10 Atherosclerotic heart disease of native coronary artery without angina pectoris (principal); E55.9 Vitamin D deficiency, unspecified
CPT/HCPCS: 36415; 80061; 82306

== ENCOUNTER → 2019-11-09 | Outpatient (CLI) | payer MEDICARE, OTHER, SELFPAY ==
[2019-10-20 09:02] VITALS: BMI 34.5
[2019-11-05 14:00] VITALS: BMI 34.8
--- NOTE | 2019-11-09 08:43 | ECHODONC_ITS ---
Reason For Study: CHF Procedure This was a 2D Doppler, Color Flow transthoracic echocardiogram. Myocardial strain analysis was performed in this exam to aid in the assessment of cardiac function. Exam performed in department. Left Ventricle Normal LV size. Left ventricular systolic function is normal. The estimated ejection fraction is 55 %. Normal diastology for age. No regional wall motion abnormalities noted. Right Ventricle Normal RV size. Normal systolic function. Atria Normal left atrium. Normal right atrium. Mitral Valve Normal mitral valve. Tricuspid Valve Normal tricuspid valve. Mild tricuspid valve insufficiency. Pulmonary artery systolic pressure is 26 mmHg. Aortic Valve Trisinus/trileaflet aortic valve. Normal aortic valve. Pulmonic Valve Normal pulmonic valve. Great Vessels Normal aortic root. The pulmonary artery is normal size. Normal inferior vena cava. Pericardium/Pleural No pericardial effusion. MMode/2D Measurements & Calculations LVIDd: 4.6 cm IVSd: 0.75 cm Ao root diam: 2.8 cm LVIDs: 3.4 cm LVPWd: 0.80 cm RVDd: 3.0 cm FS: 26.7 % LAV(MOD-bp): 71.3 ml LVAd ap4: 31.1 cm2 SV(MOD-sp4): 49.7 ml LAV(MOD-bp) Indexed: 37.7 ml/m2 EDV(MOD-sp4): 93.5 ml LAV(MOD-sp2): 79.3 ml EDV(sp4-el): 98.9 ml LAV(MOD-sp4): 56.8 ml LVAs ap4: 19.3 cm2 ESV(MOD-sp4): 43.8 ml ESV(sp4-el): 45.3 ml EF(MOD-sp4): 53.2 % EF(sp4-el): 54.2 % SV(sp4-el): 53.6 ml LA A4 area: 19.7 cm2 LA dimension(2D): 3.7 cm RA A4 area: 14.1 cm2 Time Measurements MV dec time: 0.40 sec Doppler Measurements & Calculations MV E max delfin: 70.9 cm/sec Lat Peak E' Delfin: 9.4 cm/sec Med Peak E' Delfin: 7.2 cm/sec MV A max delfin: 48.6 cm/sec E/E' lat: 7.6 E/E' med: 9.8 MV E/A: 1.5 Ao V2 max: 127.9 cm/sec LV V1 max: 100.5 cm/sec PA V2 max: 89.4 cm/sec Ao max P.6 mmHg LV V1 max P.1 mmHg TR max delfin: 238.7 cm/sec TR max P.8 mmHg Interpretation Summary Normal LV size. Left ventricular systolic function is normal. The estimated ejection fraction is 55 %. Mild tricuspid valve insufficiency. The global longitudinal strain = -17.1 % (normal). The global longitudinal strain is normal. The global longitudinal strain = -17.1 % (normal). The prior global longitudinal strain was -18.7 % . Ordering Physician: Matias Tapia MD Referring Physician: CATINA TEJADA Performed By: Pauline Santamaria, TAHIRCS, RVT
== END | disposition home or self-care (01) ==
LOC: CVS 08:43
PROVIDERS: PCP Family Medicine; Referring Provider Internal Medicine Cardiovascular Disease; Visit Provider Internal Medicine Cardiovascular Disease
DX: I34.0 Nonrheumatic mitral (valve) insufficiency (principal); I50.9 Heart failure, unspecified
CPT/HCPCS: 93306; 93356

== ENCOUNTER → 2019-11-12 | Outpatient (CLI) | payer MEDICARE, OTHER, SELFPAY ==
[2019-11-05 14:00] VITALS: BMI 34.8
--- NOTE | 2019-11-12 15:21 | CT_ITS ---
STUDY: CT CHEST WITH CONTRAST REASON FOR EXAM: Female, 64 years old. LYMPHOMA FOLLOW UP RADIATION DOSAGE (If Supplied By Facility): CTDIvol = ( 12.84 ) mGy, DLP = ( 1586.21 ) mGycm TECHNIQUE: Transaxial imaging was performed following intravenous administration of IV 100mL Isovue-300. Individualized dose optimization techniques were used for this CT. COMPARISON: 02/09/2019. FINDINGS: The lungs are normal. There is no demonstrated pleural abnormality. Normal heart and pericardium. Normal mediastinum. Normal hilar regions. Normal enhanced pulmonary arteries. Normal aorta arch and descending thoracic aorta. Normal osseous structures. CT/Chest WITH Contrast IMPRESSION: No significant adenopathy is noted. Electronically Signed: Andrea Quach DO at 8:38 EDT Tel [phone], Service support ,
--- NOTE | 2019-11-12 15:21 | CT_ITS ---
STUDY: CT SOFT TISSUE NECK WITH CONTRAST REASON FOR EXAM: Female, 64 years old. LYMPHOMA FOLLOW UP RADIATION DOSAGE (If Supplied By Facility): CTDIvol = ( 12.84 ) mGy, DLP = ( 1586.21 ) mGycm TECHNIQUE: The patient was scanned in a multi-detector CT scanner. High resolution transaxial imaging was performed following intravenous administration of IV 100mL Isovue-300. Sagittal and coronal images were reconstructed. Individualized dose optimization techniques were used for this CT. COMPARISON: 02/09/2019. FINDINGS: Normal bilateral parotid glands. Normal bilateral car oiler spaces. Normal bilateral parapharyngeal spaces. Normal bilateral carotid spaces. Normal bilateral sublingual and submandibular glands and spaces. Normal visualized nasopharynx. Normal retropharyngeal space. Normal perivertebral space. Normal visualized bilateral faucial tonsils. The visualized tongue, tongue base and oropharynx are normal. Slightly more prominent nodes are noted bilaterally posterior to the submandibular glands bilaterally measuring 2 x 1 cm on the right and 2.1 x 0.8 cm on the left. There is no demonstrated solid or cystic mass lesion. There is no abnormal contrast enhancement. Normal epiglottis, bilateral vallecula and hypopharynx. The pre-epiglottic and paraglottic adipose spaces are normal. Normal visualized bilateral piriform sinuses, aryepiglottic folds, vocal cords, and arytenoid-cricoid articulations. Normal subglottic trachea. Normal bilateral lobes of the thyroid gland. Normal visualized pulmonary apices. Normal visualized paranasal sinuses. Normal visualized cervical spine. CT/Soft Tissue Neck WITH Contrast IMPRESSION: Slightly more prominent nodes are noted posterior to the submandibular glands bilaterally. Electronically Signed: Andrea Quach DO at 8:50 EDT Tel [phone], Service support ,
--- NOTE | 2019-11-12 15:21 | CT_ITS ---
STUDY: CT ABDOMEN AND PELVIS WITH CONTRAST REASON FOR EXAM: Female, 64 years old. LYMPHOMA FOLLOW UP RADIATION DOSAGE (If Supplied By Facility): CTDIvol = ( 12.84 ) mGy, DLP = ( 1586.21 ) mGycm TECHNIQUE: Transaxial images were obtained from the dome of the diaphragm to the symphysis pubis without oral contrast. IV 100mL Isovue-300 was administered. Sagittal and coronal images were reconstructed. Individualized dose optimization techniques were used for this CT. COMPARISON: 02/09/2019 FINDINGS: Normal liver. Normal gallbladder and extrahepatic biliary system. Normal spleen. Normal pancreas. Normal bilateral adrenal glands. Normal right kidney. Normal left kidney. Normal visualized stomach. Normal small intestine. Fecal retention in the colon. The appendix is visualized and appears normal. Mildly calcified abdominal aorta. Normal inferior vena cava. Normal retroperitoneum. Normal urinary bladder. Previously noted left iliac nodule is larger measuring 3.4 x 3.2 cm. Normal abdominal wall. Normal osseous structures. CT/Abdomen/Pelvis W IV Cont ONLY IMPRESSION: Previously noted left iliac nodule is larger measuring 3.4 x 3.2 cm. Electronically Signed: Andrea Quach DO at 9:01 EDT Tel [phone], Service support ,
[2019-11-12] MEDS: 0.9% Saline Lock 10 ML Syringe IV (16:10)
== END | disposition home or self-care (01) ==
LOC: CT 15:20
PROVIDERS: PCP Family Medicine; Referring Provider Internal Medicine Hematology & Oncology; Visit Provider Internal Medicine Hematology & Oncology
DX: C82.20 Follicular lymphoma grade III, unspecified, unspecified site (principal)
CPT/HCPCS: 70491; 71260; 74177; Q9967; A4216

== ENCOUNTER → 2020-03-07 09:51 | Outpatient (CLI) | payer MEDICARE, OTHER, SELFPAY ==
[2019-11-05 14:00] VITALS: BMI 34.8
[2020-02-22 14:53] VITALS: BMI 34.2
--- NOTE | 2020-03-07 09:53 | BI_ITS ---
MAMMOGRAPHY - BILATERAL SCREENING REASON FOR EXAM: Female, 64 years old. Routine annual screening examination. PERTINENT HISTORY: Screening TECHNIQUE: Digital bilateral breast adis (3D mammographic acquisition) in the CC and MLO projections. 2-D mediolateral oblique (MLO) and craniocaudad (CC) views of both breasts were obtained. CAD: Full Field Digital Mammography with Computer Added Detection was performed. COMPARISON: Previous mammogram obtained 03/04/2019 FINDINGS: Breast Composition: Dense There are no dominant masses or suspicious calcifications. No other significant abnormalities are identified. BI/SCREEN MAMM (CAD) W/ADIS BILAT IMPRESSION: Stable bilateral screening mammogram. Yearly follow-up mammogram recommended. (A) ASSESSMENT CATEGORY: BIRADS Category 1: Negative. A letter regarding these results will be sent to the patient by the facility within 30 days. Approximately 10% of breast cancers are not detected by mammography. A normal mammogram should not delay biopsy of a clinically suspicious abnormality. [id number] Electronically Signed: Michael Palafox, at 7:46 EST Tel , Service support ,
== END ==
PROVIDERS: PCP Family Medicine; Referring Provider Internal Medicine Hematology & Oncology; Visit Provider Internal Medicine Hematology & Oncology
DX: Z12.31 Encounter for screening mammogram for malignant neoplasm of breast (principal); C82.20 Follicular lymphoma grade III, unspecified, unspecified site
CPT/HCPCS: 77063; 77067

== ENCOUNTER 2020-06-21 11:35 | Outpatient (RCR) | payer MEDICARE, OTHER, SELFPAY ==
[2020-05-23 13:27] VITALS: BMI 36.1
[2020-06-21] MEDS: COVID-19 VACC, MRNA(PFIZER)/PF 30 MCG/0.3 ML SYRINGE IM (10:12)
[2020-07-12] MEDS: COVID-19 VACC, MRNA(PFIZER)/PF 30 MCG/0.3 ML SYRINGE IM (09:58)
== END 2020-09-20 23:59 ==
LOC: IMMUN 11:35
PROVIDERS: PCP Family Medicine; Visit Provider Family Medicine
DX: Z23 Encounter for immunization (principal)
CPT/HCPCS: 0001A; 0002A; 91300

== ENCOUNTER → 2020-08-15 07:15 | Outpatient (CLI) | payer MEDICARE, OTHER, SELFPAY ==
[2020-05-23 13:27] VITALS: BMI 36.1
--- NOTE | 2020-08-15 07:16 | CT_ITS ---
STUDY: CT SOFT TISSUE NECK WITH CONTRAST REASON FOR EXAM: Female, 64 years old. FOLLICULAR LYMPHOMA FOLLOW UP. RADIATION DOSAGE (If Supplied By Facility): CTDIvol = ( 13.67 ) mGy, DLP = ( 1613.40 ) mGycm TECHNIQUE: The patient was scanned in a multi-detector CT scanner. High resolution transaxial imaging was performed following intravenous administration of IV 100mL Isovue-300. Sagittal and coronal images were reconstructed. Individualized dose optimization techniques were used for this CT. COMPARISON: Comparison is made with prior examination dated 11/12/2019. FINDINGS: A right-sided portacatheter is seen with the tip in the superior vena cava. Normal bilateral parotid glands. Normal bilateral humid system operator spaces. Normal bilateral parapharyngeal spaces. Normal bilateral carotid spaces. Normal bilateral sublingual and submandibular glands and spaces. The previously seen small lymph nodes posterior to the submandibular glands bilaterally have decreased in size and measure less than 1 cm at this time. No new abnormality is seen. Normal visualized nasopharynx. Normal retropharyngeal space. Normal perivertebral space. Normal visualized bilateral faucial tonsils. The visualized tongue, tongue base and oropharynx are normal. The visualized cervical lymph nodes (levels I-) are within normal size limits, and maintain normal morphology. There is no demonstrated solid or cystic mass lesion. There is no abnormal contrast enhancement. Normal epiglottis, bilateral vallecula and hypopharynx. The pre-epiglottic and paraglottic adipose spaces are normal. Normal visualized bilateral piriform sinuses, aryepiglottic folds, vocal cords, and arytenoid-cricoid articulations. Normal subglottic trachea. Normal bilateral lobes of the thyroid gland. Normal visualized pulmonary apices. Normal visualized paranasal sinuses. Normal visualized cervical spine. CT/Soft Tissue Neck WITH Contrast IMPRESSION: Interval decrease in size of the small lymph nodes posterior to the submandibular glands bilaterally. Electronically Signed: Denny Juarez MD at 10:24 EDT , Service support ,
--- NOTE | 2020-08-15 07:16 | CT_ITS ---
STUDY: CT CHEST, ABDOMEN T PELVIS WITH CONTRAST REASON FOR EXAM: Female, 64 years old. FOLLICULAR LYMPHOMA FOLLOW UP RADIATION DOSAGE (If Supplied By Facility): CTDIvol = ( 13.67 ) mGy, DLP = ( 1613.40 ) mGycm TECHNIQUE: Transaxial imaging was performed following intravenous administration of IV 100mL Isovue-300. Individualized dose optimization techniques were used for this CT. COMPARISON: Comparison is made with prior study dated 11/12/2019. FINDINGS: CHEST A right-sided portacatheter is visualized with the tip in the superior vena cava. The lungs are normal. There is no demonstrated pleural abnormality. Normal heart and pericardium. Normal mediastinum. Normal hilar regions. Normal unenhanced pulmonary arteries. Normal aorta arch and descending thoracic aorta. Normal osseous structures. There is no demonstrated abnormality of the visualized upper abdomen. ABDOMEN The visualized lung bases are unremarkable. The visualized portions of the heart are within normal limits. Normal liver. Normal gallbladder and extrahepatic biliary system. Normal spleen. Normal pancreas. Normal bilateral adrenal glands. Normal right kidney. Normal left kidney. Normal visualized stomach. Normal small intestine. Normal colon. The appendix is visualized and appears normal. There is scattered atherosclerotic calcification of the abdominal aorta, without a demonstrated aneurysm. Normal inferior vena cava. Normal retroperitoneum. Normal abdominal wall. Normal osseous structures. PELVIS Normal urinary bladder. Normal visualized small intestine. Normal visualized colon. There is no pelvic fluid. Stable 3.5 cm x 3.6 cm rounded soft tissue density in the left pelvic sidewall. This most likely represents a lymph node. Normal visualized pelvic arteries. Normal abdominal wall. Normal osseous structures. CT/CT Chest, Abd, Pel w/Contrast IMPRESSION: Stable 3.5 cm x 3.6 cm rounded soft tissue density in the left pelvic sidewall. Electronically Signed: Denny Juarez MD at 10:43 EDT , Service support ,
[2020-08-15 07:35] LABS: EGFR FINGERSTICK > 60.0000 mL/min (>60)
== END ==
PROVIDERS: PCP Family Medicine; Referring Provider Internal Medicine Hematology & Oncology; Visit Provider Internal Medicine Hematology & Oncology
DX: C82.20 Follicular lymphoma grade III, unspecified, unspecified site (principal)
CPT/HCPCS: 70491; 71260; 74177; Q9967; A4216

== ENCOUNTER → 2020-09-15 11:01 | Outpatient (CLI) | payer MEDICARE, OTHER, SELFPAY ==
[2020-08-22 13:13] VITALS: BMI 36.2
[2020-09-15 12:40] LABS: Cholesterol 142 mg/dL (200); High Density Lipoprotein 72 mg/dL; Triglycerides 86 mg/dL; Very Low Density Lipoprotein 17 mg/dL (5-40); Vitamin D,25 Hydroxy 57.3 ng/mL
== END ==
PROVIDERS: PCP Family Medicine; Referring Provider Family Medicine; Visit Provider Family Medicine
DX: E55.9 Vitamin D deficiency, unspecified (principal); I25.10 Atherosclerotic heart disease of native coronary artery without angina pectoris
CPT/HCPCS: 36415; 80061; 82306

== ENCOUNTER → 2021-02-13 13:11 | Outpatient (CLI) | payer MEDICARE, OTHER, SELFPAY ==
[2020-11-29 14:54] VITALS: BMI 34.9
--- NOTE | 2021-02-13 13:16 | CT_ITS ---
STUDY: CT SOFT TISSUE NECK WITH CONTRAST REASON FOR EXAM: Female, 65 years old. F/U LYMPHOMA RADIATION DOSAGE (If Supplied By Facility): CTDIvol = ( 12.72 ) mGy, DLP = ( 1447.56 ) mGycm TECHNIQUE: The patient was scanned in a multi-detector CT scanner. High resolution transaxial imaging was performed following intravenous administration of IV 100mL Isovue-300. Sagittal and coronal images were reconstructed. Individualized dose optimization techniques were used for this CT. COMPARISON: 08/15/2020 FINDINGS: Right internal jugular chest port. Next Normal bilateral parotid glands. Normal bilateral pockets and pieces necktie operator spaces. Normal bilateral parapharyngeal spaces. Normal bilateral carotid spaces. Normal bilateral sublingual and submandibular glands and spaces. Normal visualized nasopharynx. Normal retropharyngeal space. Normal perivertebral space. Normal visualized bilateral faucial tonsils. The visualized tongue, tongue base and oropharynx are normal. The visualized cervical lymph nodes (levels I-) are within normal size limits, and maintain normal morphology. There is no demonstrated solid or cystic mass lesion. There is no abnormal contrast enhancement. Normal epiglottis, bilateral vallecula and hypopharynx. The pre-epiglottic and paraglottic adipose spaces are normal. Normal visualized bilateral piriform sinuses, aryepiglottic folds, vocal cords, and arytenoid-cricoid articulations. Normal subglottic trachea. Normal bilateral lobes of the thyroid gland. Normal visualized pulmonary apices. Normal visualized paranasal sinuses. Normal visualized cervical spine. CT/Soft Tissue Neck WITH Contrast IMPRESSION: Normal enhanced CT examination of the soft tissues of the neck. Electronically Signed: Germán Aleman MD at 15:47 EDT Tel , Service support ,
--- NOTE | 2021-02-13 13:16 | CT_ITS ---
STUDY: CT CHEST, ABDOMEN T PELVIS WITH CONTRAST REASON FOR EXAM: Female, 65 years old. F/U LYMPHOMA RADIATION DOSAGE (If Supplied By Facility): CTDIvol = ( 12.72 ) mGy, DLP = ( 1447.56 ) mGycm TECHNIQUE: Transaxial imaging was performed following intravenous administration of IV 100mL Isovue-300. Individualized dose optimization techniques were used for this CT. COMPARISON: 08/15/2020 FINDINGS: CHEST Right internal jugular chest port. The lungs are normal. There is no demonstrated pleural abnormality. Normal heart and pericardium. Normal mediastinum. Normal hilar regions. Normal unenhanced pulmonary arteries. Normal aorta arch and descending thoracic aorta. Mild levoscoliosis of the thoracic spine with degenerative disc disease. There is no demonstrated abnormality of the visualized upper abdomen. ABDOMEN The visualized lung bases are unremarkable. The visualized portions of the heart are within normal limits. Normal liver. Normal gallbladder and extrahepatic biliary system. Normal spleen. Normal pancreas. Normal bilateral adrenal glands. Normal right kidney. Normal left kidney. Normal visualized stomach. Normal small intestine. Normal colon. The appendix is visualized and appears normal. There is diffuse atherosclerotic calcification of the abdominal aorta, without a demonstrated aneurysm. Normal inferior vena cava. Normal retroperitoneum. Normal abdominal wall. Mild dextroscoliosis of lumbar spine with degenerative disc disease. PELVIS Normal urinary bladder. Normal visualized small intestine. Normal visualized colon. There is no pelvic fluid. The previously described 3.0 x 3.5 cm soft tissue mass in the left side of the pelvis has migrated from the superior cul-de-sac anteriorly along the left side of the bladder suggestive of a fairly mobile mass such as the left ovary possibly containing a mass. Correlation with pelvic ultrasound would be useful. Normal visualized pelvic arteries. Normal abdominal wall. Normal osseous structures. CT/CT Chest, Abd, Pel w/Contrast IMPRESSION: 1. No definite lymphadenopathy to suggest residual or recurrent lymphoma. 2. Persistent 3.5 cm soft tissue mass in the left side of the pelvis has migrated anteriorly suggestive of an ovarian origin. Correlate with pelvic ultrasound would be useful. Electronically Signed: Germán Aleman MD at 9:30 EDT Tel , Service support ,
[2021-02-13 13:35] LABS: CREATININE FINGERSTICK 0.7 mg/dL (0.55-1.02); EGFR FINGERSTICK > 60.0000 mL/min (>60)
[2021-02-13] MEDS: 0.9% Saline Lock 10 ML Syringe IV (14:00)
== END ==
PROVIDERS: PCP Family Medicine; Referring Provider Internal Medicine Hematology & Oncology; Visit Provider Internal Medicine Hematology & Oncology
DX: C82.20 Follicular lymphoma grade III, unspecified, unspecified site (principal)
CPT/HCPCS: 70491; 71260; 74177; Q9967; A4216

== ENCOUNTER → 2021-02-23 07:46 | Outpatient (CLI) | payer MEDICARE, OTHER, SELFPAY ==
--- NOTE | 2021-02-23 07:52 | US_ITS ---
STUDY: ULTRASOUND OF THE FEMALE PELVIS - COMPLETE REASON FOR EXAM: Female, 65 years old. Left adnexal mass. History of lymphoma. LMP: Patient is postmenopausal. TECHNIQUE: Transabdominal and Transvaginal TECHNICAL QUALITY: Adequate. COMPARISON: Comparison is made with prior CT scan dated 02/13/2021. FINDINGS: The uterus is anteverted and is in a midline position. The uterus measures 5.7 cm x 4 cm x 2.6 cm. There is a Nabothian cyst of the cervix. The endometrium measures 4 mm in thickness, and is fluid distended. There is no demonstrated endometrial mass. There is no demonstrated myometrial mass. I.U.D. - The patient does not have an I.U.D. The right ovary is non-visualized. The left ovary is non-visualized. There is a 3.4 cm x 3.8 cm x 3.2 cm complex solid and cystic mass in the left adnexa. Increased blood flow is seen. This corresponds to the mammographic abnormality. There is no fluid in the cul-de-sac. The pre void volume of the bladder was 264 ml. US/Pelvic (Non ) IMPRESSION: Thickened endometrium. 3.4 cm x 3.8 cm x 3.2 cm heterogeneous solid mass in the left adnexa. This corresponds to CT findings. Electronically Signed: Denny Juarez MD at 14:21 EST , Service support ,
== END ==
PROVIDERS: PCP Family Medicine; Referring Provider Internal Medicine Hematology & Oncology; Visit Provider Internal Medicine Hematology & Oncology
DX: N83.202 Unspecified ovarian cyst, left side (principal); Z85.72 Personal history of non-Hodgkin lymphomas
CPT/HCPCS: 76856

== ENCOUNTER → 2021-03-06 10:47 | Outpatient (CLI) | payer MEDICARE, OTHER, SELFPAY ==
[2021-03-07 16:02] LABS: Cancer Antigen 125 10.2 U/mL (0.0-38.1); Carcinoembryonic Antigen 2139 1.3 ng/mL (0.0-4.7)
== END ==
PROVIDERS: PCP Family Medicine; Referring Provider Obstetrics & Gynecology; Visit Provider Obstetrics & Gynecology
DX: C56.9 Malignant neoplasm of unspecified ovary (principal)
CPT/HCPCS: 36415; 82378; 86304

== ENCOUNTER → 2021-03-08 09:45 | Outpatient (CLI) | payer MEDICARE, OTHER, SELFPAY ==
[2020-11-29 14:54] VITALS: BMI 34.9
--- NOTE | 2021-03-08 09:47 | BI_ITS ---
MAMMOGRAPHY - BILATERAL SCREENING 3-D TOMOSYNTHESIS REASON FOR EXAM: Female, 65 years old. Routine screening PERTINENT HISTORY: No significant family history. TECHNIQUE: 2-D mammograms and 3-D Tomosynthesis of the breast (s) were performed. CAD was performed. COMPARISON: 03/07/2020 FINDINGS: The breast composition is heterogeneously dense that can obscure small breast masses. Scattered benign calcifications are seen. No dense spiculated masses or suspicious microcalcifications are identified. No architectural distortion is identified. There is no skin thickening or retraction. There has been no significant change since the prior study. BI/SCRN MAMM (CAD)W/ADIS BILAT IMPRESSION: No mammographic signs of malignancy. Routine yearly mammograms recommended. ASSESSMENT CATEGORY: BIRADS Category 2: Benign. A letter regarding these results will be sent to the patient by the facility within 30 days. FOLLOW UP RECOMMENDATION: Yearly follow up mammogram recommended. (A) Approximately 10% of breast cancers are not detected by mammography. A normal mammogram should not delay biopsy of a clinically suspicious abnormality. Electronically Signed: Marco Kuhn MD at 11:54 EST , Service support ,
== END ==
PROVIDERS: PCP Family Medicine; Referring Provider Internal Medicine Hematology & Oncology; Visit Provider Internal Medicine Hematology & Oncology
DX: Z12.31 Encounter for screening mammogram for malignant neoplasm of breast (principal)
CPT/HCPCS: 77063; 77067

== ENCOUNTER → 2021-03-16 10:44 | Outpatient (CLI) | payer MEDICARE, OTHER, SELFPAY ==
--- NOTE | 2021-03-16 11:01 | BD_ITS ---
STUDY: DUAL ENERGY X-RAY ABSORPTIOMETRY / DXA REASON FOR EXAM: Female, 65 years old. [id number]. The patient is postmenopausal. TECHNIQUE: Bone Mineral Density (BMD) measurements of lumbar spine and bilateral hips were obtained. COMPARISON: None. FINDINGS: Lumbar Spine (L1-L4): g/cm2 (0.918) / T-score (-1.2) / Z-score (0.8) Findings are suggestive of osteopenia with a low fracture risk. Left Femur Total: g/cm2 (0.711) / T-score (-1.9) / Z-score (-0.5) Left Femoral Neck: g/cm2 (0.564) / T-score (-2.6) / Z-score (-0.9) Right Femur Total: g/cm2 (0.654) / T-score (-2.4) / Z-score (-1.0) Right Femoral Neck: g/cm2 (0.518) / T-score (-3.0) / Z-score (-1.3) BD/Dexa Bone Density Study IMPRESSION: The patient is considered osteoporotic as outlined below according to World Arnold Organization (WHO) criteria with a high fracture risk. Reference Information: The T-score is the number of standard deviations above or below the standard which is normal for young adults at their peak bone mineral density. The World Health Organization (WHO) interprets the T-scores as follows: Above -1 Normal bone density Between -1 and -2.5 Osteopenia Equal to / or below -2.5 Osteoporosis As a practical clinical guideline, osteopenia may be graded as follows: Mild -1 through -1.5 Moderate -1.6 through -2.0 Severe -2.1 through -2.4 The Z-score is the number of standard deviations above or below age-matched controls. A Z-score of less than -1.5 would be considered abnormal. References: 1. NIH Osteoporosis and Related Bone Diseases www osteo.org 2. International Society for Clinical Densitometry www iscd.org 3. National Osteoporosis Foundation www nof.org Electronically Signed: Denny Juarez MD at 10:34 EST , Service support ,
== END ==
PROVIDERS: PCP Family Medicine; Visit Provider Internal Medicine Hematology & Oncology
DX: Z78.0 Asymptomatic menopausal state (principal)
CPT/HCPCS: 77080

== ENCOUNTER 2021-04-26 12:26 | Outpatient (CLI) | payer MEDICARE, OTHER, SELFPAY ==
[2021-04-26 15:24] LABS: Absolute Lymphocyte Count 1.66 X10^3/uL (0.83-4.51); Absolute Neutrophil Count 4.4 X10^3/uL (2.0-7.7); Basophil# 0.03 X10^3/uL; Basophil% 0.4 % (0-1); Eosinophil# 0.09 X10^3/uL; Eosinophils% 1.3 % (0-5); Hematocrit 38.7 % (37-47); Hemoglobin 12.4 g/dL (12.0-15.0); Lymphocyte # 1.66 X10^3/ul (0.83-4.51); Lymphocyte % 24.4 % (19-41); Mean Corpuscular Hgb 30.2 pg (27.0-32.0); Mean Corpuscular Volume 94.2 fL (81-99); Mean Platelet Vol. 12.3 fl (6.2-12.0); Monocyte# 0.59 X10^3/uL; Monocyte% 8.7 % (0-10); NRBC Flagged by Analyzer 0 % (0-5); Neutrophil % 64.9 % (47-70); Platelet Count 227 K/mm3 (150-450); RBC Distribution Width CV 14.2 % (11.6-14.6); RBC Distribution Width SD 48.4 fl (35.1-43.9); Red Blood Count 4.11 M/mm3 (4.2-5.4); White Blood Count 6.8 K/mm3 (4.4-11.0)
[2021-04-26 15:52] LABS: AST(SGOT) 15 U/L (15-37); Alanine Aminotransfer ALT/SGPT 24 U/L (13-56); Albumin, Serum 3.7 g/dL (3.2-5.0); Alkaline Phosphatase 61 U/L (45-117); Anion Gap 7 (5-15); BUN 12 mg/dL (7-18); BUN/Creat Ratio 19.5 RATIO (10-20); Calcium,Total 9.8 mg/dL (8.5-10.1); Chloride 102 mmol/L (98-107); Cholesterol 248 mg/dL (200); Creatinine, Serum 0.61 mg/dL (0.55-1.02); EST Glomerular Filtration Rate 103 mL/min (>60); Est Glom Filt Rate - Afr Amer 125 mL/min (>60); Globulin 3.7 g/dL (2.2-4.2); Glucose 86 mg/dL (74-106); High Density Lipoprotein 66 mg/dL; Potassium 4.4 mmol/L (3.5-5.1); Protein, Total 7.4 g/dL (6.4-8.2); Sodium Level 138 mmol/L (136-145); Thyroid Stim Hormone (TSH) 1.81 uIU/mL (0.358-3.74); Triglycerides 124 mg/dL; Very Low Density Lipoprotein 25 mg/dL (5-40)
[2021-04-26 16:24] LABS: Vitamin D,25 Hydroxy 47.7 ng/mL
== END 2021-04-26 23:59 | disposition short-term general hospital (02) ==
LOC: MFPLAB 12:30
PROVIDERS: PCP Family Medicine; Referring Provider Family Medicine; Visit Provider Family Medicine
DX: I10 Essential (primary) hypertension (principal); E55.9 Vitamin D deficiency, unspecified
CPT/HCPCS: 36415; 80053; 80061; 82306; 84443; 85025

== ENCOUNTER 2021-05-10 13:35 | Emergency (ER) | payer MEDICARE, OTHER, SELFPAY ==
[2021-05-10 13:35] VITALS: BP 181/82; PULSE 62; RESP 14; TEMP 36; O2SAT 100; BMI 31.0
--- NOTE | 2021-05-10 13:58 | EKG12_ITS ---
Test Reason : HTN Blood Pressure : / mmHG Vent. Rate : 063 BPM Atrial Rate : 063 BPM P-R Int : 164 ms QRS Dur : 086 ms QT Int : 396 ms P-R-T Axes : 054 044 067 degrees QTc Int : 405 ms Normal sinus rhythm Normal ECG Confirmed by JAMISON MATA, MARIELA ([id number]), newspaper copy editor KERRY MORGAN ([id number]) on 05/12/2021 1:06:05 PM Referred By: QI Confirmed By:JENAE SWIFT MD
--- NOTE | 2021-05-10 14:00 | EDS_ITS ---
HPI History of Present Illness Chief Complaint: Hypertension Informant: patient and spouse/S.O. Narrative Narrative: Patient presenting with her mother evaluation of left-sided chest tightness starting yesterday evening mild today. She was started on a new cholesterol pill yesterday prior to symptoms starting. Denies dyspnea or cough. States she checked her blood pressure today prior to arrival systolic 160s typically systolic 140s. She is on blood pressure medications bring her list is lisinopril 10 mg daily, metoprolol succinate 25 mg daily. Denies missed doses. Denies any leg cramping. Remote tobacco history. No history of MIs. History of lymphoma in the past. Prior similar symptoms: No PFSH PFSH Medical History Acute diastolic (congestive) heart failure Adnexal mass Bilateral pleural effusion Chronic combined systolic and diastolic CHF (congestive heart failure) Constipation Essential (primary) hypertension Follicular lymphoma grade III History of non-ST elevation myocardial infarction (NSTEMI) (03/18/18) Hyperlipidemia Lymphadenopathy Obesity SOB (shortness of breath) Home Medications multivitamin 1 tab PO DAILY 02/25/18 [History Last Taken 03/16/18] cholecalciferol (vitamin D3) 2,000 unit PO DAILY 05/14/19 [History Last Taken Unknown] alendronate [Fosamax] 70 mg PO TU 05/10/21 [History Last Taken Unknown] aspirin 81 mg PO DAILY 05/10/21 [History Last Taken Unknown] calcium 600 mg PO DAILY 05/10/21 [History Last Taken Unknown] lisinopril 10 mg PO DAILY 05/10/21 [History Last Taken Unknown] metoprolol succinate 25 mg PO DAILY 05/10/21 [History Last Taken Unknown] rosuvastatin 10 mg PO DAILY 05/10/21 [History Last Taken Unknown] Allergy/AdvReac Type Severity Reaction Status Date / Time No Known Allergies Allergy Verified 05/10/21 13:37 Family History Father Diabetes Arthritis Heart disease Kidney disease Stomach ulcer Hypertension Sister Diabetes Arthritis Heart disease Hypertension Thyroid disorder Mother Breast cancer Cancer ovarian Brother Diabetes Kidney disease Hypertension Lymphoma Surgical History History of thoracentesis (03/2018) Hx of lymph node biopsy (02/2018) No history of previous surgery Social History household members: spouse housing: house Smoking Status: Former smoker Tobacco: How many years used: 30 Electronic Cigarette Use: not used alcohol intake: never substance use type: does not use soraya/denominational: Buddhism seatbelt use: always do you feel safe at home: Yes ROS ROS ED Constitutional Constitutional ED: Denies chills, fever(s) or sweats Eyes Eyes: Denies change in vision ENT ENT ED: Denies dysphagia or sore throat Cardiovascular Cardiovascular: Reports chest pain; Denies leg edema, palpitations or racing heartbeat Respiratory/Chest Respiratory/Chest: Denies cough, dyspnea or dyspnea on exertion Gastrointestinal Gastrointestinal: Denies abdominal pain, diarrhea, nausea or vomiting Genitourinary Genitourinary ED: Denies dysuria, hematuria or urinary frequency Musculoskeletal Musculoskeletal: Denies back pain, extremity pain or neck pain Integumentary Denies rash or wounds Neurologic Neurologic: Denies headache(s), paresthesias or weakness EXAM Physical Exam Const Vital Signs: 05/10/21 13:35 05/10/21 14:21 05/10/21 15:48 Temperature 96.8 F L Temperature Source Temporal Pulse Rate 62 58 L Respiratory Rate 14 16 Respiratory Effort Normal Non-Labored Respiratory Pattern Normal Blood Pressure 181/82 H 117/59 L Blood Pressure Mean 115 78 Pulse Ox 100 100 Oxygen Delivery Method Room Air Room Air Room Air Positive well nourished and well developed General Appearance ED: well developed and NAD HEENT Reports moist mucous membranes normocephalic and atraumatic Eyes PERRL, EOMs intact bilaterally and conjunctivae normal General Eye ED: Yes normal appearance of both eyes Neck no lymphadenopathy and supple General: Negative for tenderness Chest Wall Chest: Negative for tenderness Resp normal respiratory effort and normal air movement Effort and Inspection: symmetric chest movement; Negative for respiratory distress Cardio regular rate, regular rhythm and no murmurs Peripheral Pulses: pulses 2+ throughout GI normal to inspection, nondistended, normoactive bowel sounds and non-tender Palpation: Negative for guarding or rebound tenderness present Back/Spine no CVA tenderness and no thoracic nor lumbar tenderness Extremity normal to inspection General Extremety ED: Negative for edema or tenderness General Extremity: Negative for edema Neuro oriented x3 and no sensory deficits noted Sensorium / Orientation: awake and alert Skin no rashes or lesions noted and no wounds MDM MDM MDM Narrative Medical decision making narrative: Patient blood pressure 181/82 on arrival. Discussion reported left-sided chest pains. Cardiac work-up performed EKG and labs normal, troponin x2 - within the algorithm. Asymptomatic on reevaluation. Chest x-ray reviewed by myself and read by radiology as normal. Blood pressure improved without intervention down to 117/59. Should continue home medications. She will follow-up with her PCP. All questions were answered. Patient is being discharged under pandemic conditions under declared global, national and state disaster activation, with limited medical resources. Patient and community understands this. Results discussed in layman's terms to the p atient satisfaction. All questions answered in layman's terms. Patient understands importance of follow-up care as directed. Patient has been instructed to return to the ED immediately if new symptoms, problems, or questions occur. We mutually agree with the plan of disposition. The patient understand that they may call or return with any questions or concerns at any time. Lab Data Attestation: I reviewed the patient's lab results. Labs: Laboratory Results - last 24 hr 05/10/21 05/10/21 05/10/21 14:15 14:15 16:20 WBC 9.2 RBC 3.94 L Hgb 12.2 Hct 36.5 L MCV 92.6 MCH 31.0 MCHC 33.4 RDW Std Deviation 47.4 H RDW Coeff of Sven 13.9 Plt Count 222 MPV 11.5 Immature Gran % (Auto) 0.200 Neut % (Auto) 75.9 H Lymph % (Auto) 15.7 L Estill % (Auto) 7.2 Eos % (Auto) 0.7 Baso % (Auto) 0.3 Absolute Neuts (auto) 6.9 Absolute Lymphs (auto) 1.44 Nucleated RBC % 0 Sodium 137 Potassium 3.9 Chloride 104 Carbon Dioxide 25.0 Anion Gap 8 BUN 14 Creatinine 0.57 Estim Creat Clear Calc 47.14 Est GFR (MDRD) Af Amer 135 Est GFR (MDRD) Non-Af 112 BUN/Creatinine Ratio 24.4 H Glucose 95 Calcium 9.8 Troponin I High Sens 9 13 Radiography Chest X-Ray - ED: 1 View, Read by ED Physician, Read by Radiologist and No Acute Disease Diagnostic Testing: Clinical Impression(s) from Imaging Studies Chest X-Ray 05/10/21 14:20 IMPRESSION: No acute abnormality is seen. Electronically Signed: Denny Juarez MD at 14:38 EST , EKG Initial EKG: Attestation: I personally reviewed and interpreted this EKG as follows: Comments: Sinus rate of 63, no ST or T wave changes. QTc 405. Discharge Plan Triage Chief Complaint: Hypertension ED Provider: Chay Mathis Dx/Rx/DC Orders Clinical Impression: Chest pain, Elevated blood pressure, situational Instructions: Controlling High Blood Pressure, ED Chest Pain, Uncertain Cause Prescriptions: No Action multivitamin 1 EACH tablet 1 tab PO DAILY RF: 0 cholecalciferol (vitamin D3) 2,000 UNIT capsule 2,000 unit PO DAILY RF: 0 rosuvastatin 10 mg tablet 10 mg PO DAILY RF: 0 calcium 600 mg Capsule 600 mg PO DAILY RF: 0 alendronate [Fosamax] 70 mg Tablet 70 mg PO TU RF: 0 aspirin 81 mg Tablet 81 mg PO DAILY RF: 0 metoprolol succinate 50 mg tablet extended release 24 hr 25 mg PO DAILY RF: 0 lisinopril 5 mg tablet 10 mg PO DAILY RF: 0 Primary Care Provider: Michael Tanner Referrals: Michael Tanner MD [Primary Care Provider] - 3-5 Days Activity Restrictions/Additional Instructions: Blood pressure elevated on arrival improved without intervention down to 117/59. Cardiac work-up negative. Follow-up with your doctor for reevaluation and further testing as an outpatient as needed. Disposition Disposition: Home, Self Care
--- NOTE | 2021-05-10 14:20 | RAD_ITS ---
STUDY: X-RAY CHEST REASON FOR EXAM: Female, 65 years old. Chest pain TECHNIQUE: Single AP portable view of the chest. COMPARISON: Comparison is made with prior study dated 04/03/2018. FINDINGS: A right-sided ward catheter seen with the tip at the junction of the superior vena cava and right atrium. EKG electrodes are seen. The lungs are clear and expanded. There is no demonstrated pleural abnormality. Normal size heart. Normal mediastinum and alex. Normal visualized pulmonary arteries. Normal visualized aortic arch and descending thoracic aorta. There are diffuse degenerative changes of the visualized thoracic spine. Mild levoscoliosis. Normal visualized ribs, clavicles, and shoulders. There is no demonstrated abnormality of the visualized soft tissue structures of the upper abdomen. RAD/Chest 1 View (Portable) IMPRESSION: No acute abnormality is seen. Electronically Signed: Denny Juarez MD at 14:38 EST ,
[2021-05-10 14:24] LABS: Absolute Lymphocyte Count 1.44 X10^3/uL (0.83-4.51); Absolute Neutrophil Count 6.9 X10^3/uL (2.0-7.7); Basophil# 0.03 X10^3/uL; Basophil% 0.3 % (0-1); Eosinophil# 0.06 X10^3/uL; Eosinophils% 0.7 % (0-5); Hematocrit 36.5 % (37-47); Hemoglobin 12.2 g/dL (12.0-15.0); Lymphocyte # 1.44 X10^3/ul (0.83-4.51); Lymphocyte % 15.7 % (19-41); Mean Corp Hgb Conc 33.4 g/dL (32-36); Mean Corpuscular Volume 92.6 fL (81-99); Mean Platelet Vol. 11.5 fl (6.2-12.0); Monocyte# 0.66 X10^3/uL; Monocyte% 7.2 % (0-10); NRBC Flagged by Analyzer 0 % (0-5); Neutrophil # 6.94 X10^3/uL (2.7-7.7); Neutrophil % 75.9 % (47-70); Platelet Count 222 K/mm3 (150-450); RBC Distribution Width CV 13.9 % (11.6-14.6); RBC Distribution Width SD 47.4 fl (35.1-43.9); Red Blood Count 3.94 M/mm3 (4.2-5.4); White Blood Count 9.2 K/mm3 (4.4-11.0)
[2021-05-10 15:47] LABS: Anion Gap 8 (5-15); BUN 14 mg/dL (7-18); BUN/Creat Ratio 24.4 RATIO (10-20); Calcium,Total 9.8 mg/dL (8.5-10.1); Chloride 104 mmol/L (98-107); Creatinine, Serum 0.57 mg/dL (0.55-1.02); EST Glomerular Filtration Rate 112 mL/min (>60); Est Glom Filt Rate - Afr Amer 135 mL/min (>60); Estimated Creatinine Clearance 47.14 ml/min; Glucose 95 mg/dL (74-106); Potassium 3.9 mmol/L (3.5-5.1); Sodium Level 137 mmol/L (136-145); Troponin-I HS 9 pg/mL (3.0-54.0)
[2021-05-10 15:48] VITALS: BP 117/59; PULSE 58; RESP 16; O2SAT 100
[2021-05-10 17:14] LABS: Troponin-I HS 13 pg/mL (3.0-54.0)
[2021-05-10 17:58] VITALS: BP 118/56; PULSE 70; RESP 17
== END 2021-05-10 18:03 | disposition home or self-care (01) ==
PROVIDERS: Emergency Provider Emergency Medicine; PCP Family Medicine; Visit Provider Emergency Medicine
DX: R07.89 Other chest pain (principal); I50.42 Chronic combined systolic (congestive) and diastolic (congestive) heart failure; E78.5 Hyperlipidemia, unspecified; Z87.891 Personal history of nicotine dependence; I12.9 Hypertensive chronic kidney disease with stage 1 through stage 4 chronic kidney disease, or unspecified chronic kidney disease; I25.2 Old myocardial infarction; Z79.82 Long term (current) use of aspirin; Z79.899 Other long term (current) drug therapy; E66.9 Obesity, unspecified; Z68.31 Body mass index [BMI] 31.0-31.9, adult; Z85.72 Personal history of non-Hodgkin lymphomas
CPT/HCPCS: 36591; 71045; 80048; 84484; 85025; 93005; 99285; A4216

== ENCOUNTER → 2021-08-14 | Outpatient (CLI) | payer MEDICARE, OTHER, SELFPAY ==
--- NOTE | 2021-08-14 13:25 | CT_ITS ---
STUDY: CT CHEST, ABDOMEN T PELVIS WITH CONTRAST REASON FOR EXAM: Female, 65 years old. F/U LYMPHOMA RADIATION DOSAGE (If Supplied By Facility): CTDIvol = ( 12.55 ) mGy, DLP = ( 1342.47 ) mGycm TECHNIQUE: Transaxial imaging was performed following intravenous administration of Oral and amp; IV Readi-CAT and amp; 100mL Isovue-300. Individualized dose optimization techniques were used for this CT. COMPARISON: Comparison is made with prior examination dated 02/13/2021. FINDINGS: CHEST A right-sided Port-A-Cath is seen with the tip in the superior vena cava. The lungs are normal. There is no demonstrated pleural abnormality. Normal heart and pericardium. Normal mediastinum. Normal hilar regions. Normal unenhanced pulmonary arteries. Normal aorta arch and descending thoracic aorta. Normal osseous structures. There is no demonstrated abnormality of the visualized upper abdomen. ABDOMEN Normal liver. Normal gallbladder and extrahepatic biliary system. Normal spleen. Normal pancreas. Normal bilateral adrenal glands. Normal right kidney. Normal left kidney. Normal visualized stomach. Normal small intestine. Normal colon. The appendix is visualized and appears normal. There is diffuse atherosclerotic calcification of the abdominal aorta, without a demonstrated aneurysm. Normal inferior vena cava. Normal retroperitoneum. PELVIS Normal urinary bladder. The previously seen 3 cm x 3.5 sinus soft tissue mass in the left side of the pelvis is not seen at this time. There is no pelvic fluid. There is no pelvic lymphadenopathy or mass lesion. There is diffuse atherosclerotic calcification of the pelvic arteries. Normal abdominal wall. There are degenerative changes of the visualized lumbar spine. CT/CT Chest, Abd, Pel w/Contrast IMPRESSION: The previously seen 3 cm x 3.5 cm soft tissue mass in the left side of the pelvis is not seen at this time. Electronically Signed: Denny Juarez MD at 15:42 EDT ,
--- NOTE | 2021-08-14 13:25 | CT_ITS ---
STUDY: CT SOFT TISSUE NECK WITH CONTRAST REASON FOR EXAM: Female, 65 years old. F/U LYMPHOMA RADIATION DOSAGE (If Supplied By Facility): CTDIvol = ( 12.55 ) mGy, DLP = ( 1342.47 ) mGycm TECHNIQUE: The patient was scanned in a multi-detector CT scanner. High resolution transaxial imaging was performed following intravenous administration of Oral and amp; IV Readi-CAT and amp; 100mL Isovue-300. Sagittal and coronal images were reconstructed. Individualized dose optimization techniques were used for this CT. COMPARISON: Comparison is made with prior examination of 02/13/2021. FINDINGS: A right-sided portacatheter is seen with the tip in the superior vena cava. Normal bilateral parotid glands. 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 Normal bilateral parapharyngeal spaces. Normal bilateral carotid spaces. Normal bilateral sublingual and submandibular glands and spaces. Normal visualized nasopharynx. Normal retropharyngeal space. Normal perivertebral space. Normal visualized bilateral faucial tonsils. The visualized tongue, tongue base and oropharynx are normal. The visualized cervical lymph nodes (levels I-) are within normal size limits, and maintain normal morphology. There is no demonstrated solid or cystic mass lesion. There is no abnormal contrast enhancement. Normal epiglottis, bilateral vallecula and hypopharynx. The pre-epiglottic and paraglottic adipose spaces are normal. Normal visualized bilateral piriform sinuses, aryepiglottic folds, vocal cords, and arytenoid-cricoid articulations. Normal subglottic trachea. Normal bilateral lobes of the thyroid gland. Normal visualized pulmonary apices. Normal visualized paranasal sinuses. There is degenerative changes of the cervical spine. CT/Soft Tissue Neck WITH Contrast IMPRESSION: Stable examination. No acute abnormality is seen. Electronically Signed: Denny Juarez MD at 15:09 EDT ,
[2021-08-14 13:40] LABS: CREATININE FINGERSTICK 0.7 mg/dL (0.55-1.02); EGFR FINGERSTICK > 60.0000 mL/min (>60)
[2021-08-14] MEDS: 0.9% Saline Lock 10 ML Syringe IV (13:57)
== END | disposition home or self-care (01) ==
LOC: CT 13:24
PROVIDERS: PCP Family Medicine; Referring Provider Internal Medicine Hematology & Oncology; Visit Provider Internal Medicine Hematology & Oncology
DX: I10 Essential (primary) hypertension (principal); C85.90 Non-Hodgkin lymphoma, unspecified, unspecified site
CPT/HCPCS: 70491; 71260; 74177; Q9967; A4216

== ENCOUNTER → 2022-03-09 | Outpatient (CLI) | payer MEDICARE, OTHER, SELFPAY ==
--- NOTE | 2022-03-09 11:50 | BI_ITS ---
MAMMOGRAPHY - BILATERAL SCREENING REASON FOR EXAM: Female, 66 years old. Routine annual screening examination. PERTINENT HISTORY: Mother with breast cancer. Personal history of lymphoma. No personal history of breast cancer. TECHNIQUE: Digital bilateral breast adis (3D mammographic acquisition) in the CC and MLO projections. 2-D mediolateral oblique (MLO) and craniocaudad (CC) views of both breasts were obtained. CAD: Full Field Digital Mammography with Computer Added Detection was performed. COMPARISON: 03/08/2021, 03/07/2020. FINDINGS: Breast Composition: The breasts are heterogeneously dense, which may obscure small masses. There are no dominant masses or suspicious calcifications. No other significant abnormalities are identified. There has been no significant change since the prior study. BI/SCRN MAMM (CAD)W/ADIS BILAT IMPRESSION: Stable bilateral screening mammogram. Yearly follow-up mammogram recommended. (A) ASSESSMENT CATEGORY: BIRADS Category 1: Negative. A letter regarding these results will be sent to the patient by the facility within 30 days. Approximately 10% of breast cancers are not detected by mammography. A normal mammogram should not delay biopsy of a clinically suspicious abnormality. Electronically Signed: Benjamín Elmore, at 12:54 EST ,
--- NOTE | 2022-03-09 12:11 | CT_ITS ---
HISTORY: Follow-up lymphoma, last treatment 4 years ago. TECHNIQUE: Helically acquired images were obtained of the neck after the intravenous administration of 100 mL Isovue 370. A radiation dose optimization technique was used for this scan. 293 images. COMPARISON: 08/14/2021, 02/13/2021. FINDINGS: NASOPHARYNX: Unremarkable. SUPRAHYOID NECK: Unremarkable oropharynx, oral cavity, parapharyngeal space, and retropharyngeal space. INFRAHYOID NECK: Unremarkable larynx, hypopharynx, and supraglottis. THYROID: No focal lesions. SALIVARY GLANDS: Symmetric parotid and submandibular glands. LYMPH NODES: Stable 9 mm bilateral level 2 lymph nodes. No pathologically enlarged lymph nodes identified. VASCULAR STRUCTURES: Patent bilateral internal jugular veins and carotid arteries. Right chest wall port with course in the internal jugular vein and superior vena cava noted. ORBITS: Symmetric contents. PARANASAL SINUSES, MASTOID AIR CELLS: Well aerated. OSSEOUS STRUCTURES: Degenerative changes of the cervical spine with chronic mild retrolisthesis of C4-5. Chronic T1 spinous process fracture. No suspicious osteoblastic or osteolytic lesion. LUNG APICES: Clear. CT/Soft Tissue Neck WITH Contrast IMPRESSION: No significant interval change. No evidence for pathologically enlarged lymph nodes. Electronically Signed: Samantha Garcia MD at 14:12 EST ,
--- NOTE | 2022-03-09 12:11 | CT_ITS ---
HISTORY: Lymphoma follow-up. TECHNIQUE: Helically acquired images were obtained of the chest, abdomen, and pelvis after the intravenous administration of 100mL Isovue-370. No oral contrast was administered. 2-D reformatted images provided. A radiation dose optimization technique was used for this scan. 1220 images. COMPARISON: 08/14/2021, 02/13/2021 FINDINGS: ----Chest: LARGE AIRWAYS: Patent. LUNGS: Clear. Very mild centrilobular emphysema. PLEURA: No pneumothorax or significant pleural effusion. HEART AND PERICARDIUM: Heart within normal limits in size. No significant pericardial effusion. VESSELS: No thoracic aortic aneurysm or dissection flap. Atherosclerosis noted. No large central central pulmonary embolism although study not performed with the pulmonary embolism protocol. Right chest wall port with catheter tip in the high right atrium. MEDIASTINUM AND BISMARK: Small mediastinal lymph nodes without pathologic enlargement. Stable 8 mm left retropectoral lymph node. BONES: Intact without suspicious osteoblastic or osteolytic lesion. ----Abdomen/Pelvis: BOWEL: Bowel including appendix nondilated. Moderate stool in colon. PERITONEUM: No significant free fluid or pathologically enlarged lymph nodes. LIVER: No enhancing mass. GALLBLADDER/BILIARY TREE: Gallbladder present. SPLEEN/PANCREAS: Homogeneous and nonenlarged. KIDNEYS/ADRENAL GLANDS: Unremarkable. VESSELS: No abdominal aortic aneurysm. Atherosclerosis noted. PELVIC ORGANS: Unremarkable. BONES: Degenerative change and mild osteopenia without destructive osseous lesion. CT/CT Chest, Abd, Pel w/Contrast IMPRESSION: No evidence for acute abnormality or pathologically enlarged lymph nodes in the chest. No significant interval change in the abdomen or pelvis. No pathologically enlarged lymph nodes identified. Electronically Signed: Samantha Garcia MD at 15:03 EST ,
[2022-03-09] MEDS: 0.9% Saline Lock 10 ML Syringe IV (13:34)
[2022-03-09 13:41] LABS: CREATININE FINGERSTICK < 0.9 mg/dL (0.55-1.02); EGFR FINGERSTICK > 60.0000 mL/min (>60)
== END | disposition home or self-care (01) ==
LOC: CT 11:48
PROVIDERS: PCP Family Medicine; Referring Provider Internal Medicine Hematology & Oncology; Visit Provider Internal Medicine Hematology & Oncology
DX: Z12.31 Encounter for screening mammogram for malignant neoplasm of breast (principal); C85.90 Non-Hodgkin lymphoma, unspecified, unspecified site; Z80.3 Family history of malignant neoplasm of breast
CPT/HCPCS: 70491; 71260; 74177; 77063; 77067; Q9967; A4216

== ENCOUNTER 2022-03-27 05:26 | Emergency (ER) | payer MEDICARE, OTHER, SELFPAY ==
[2022-03-27 05:26] VITALS: BP 106/61; PULSE 56; PULSE 61; RESP 12; RESP 16; TEMP 36.2; O2SAT 100; O2SAT 99; BMI 31.8
--- NOTE | 2022-03-27 05:46 | EKG12_ITS ---
Test Reason : SYNCOPE Blood Pressure : / mmHG Vent. Rate : 052 BPM Atrial Rate : 052 BPM P-R Int : 186 ms QRS Dur : 082 ms QT Int : 408 ms P-R-T Axes : 052 013 050 degrees QTc Int : 379 ms Sinus bradycardia Otherwise normal ECG Confirmed by AKMALA MATA, HOLDEN ([id number]), development editor KERRY MORGAN ([id number]) on 03/28/2022 11:55:35 AM Referred By: BB Confirmed By:HOLDEN WRAY MD
--- NOTE | 2022-03-27 05:47 | EX.ED.DYSGE1 ---
HPI History of Present Illness Chief Complaint: Syncope Informant: patient and EMS Onset/Context/Timing Onset: Today (1-2 hours prior to arrival) Context: Gradual Onset Timing: Intermittent and Lasts (Several minutes) Quality: Near syncope and weak Location: All over Current Severity: Gone Maximum Severity: Severe Narrative Narrative: Patient states she woke up in the middle of the night around 4 AM to urinate. She went to the bathroom and urinated, no bowel movement. This was uneventful. She did not strain hard. She got up to go wash her hands and then remembers feeling some abdominal pain/cramping in the periumbilical area she thinks, and then suddenly feeling near syncopal/lightheaded. She lowered her self to the floor without a fall or injury. She called her significant other who tried to help her up but she was too weak to stand and EMS was called. She feels fine now. She denies feeling any chest discomfort, dyspnea, palpitations, sweating, headache, focal neurologic symptoms or vision changes. States she has been eating and drinking like normal the prior day and denies any recent illness. Medications include metoprolol succinate 25 mg daily she has been compliant with that, she is on no anticoagulants, she takes a baby aspirin daily. No history of ischemic heart disease. [facility] Medical History Acute diastolic (congestive) heart failure Adnexal mass Bilateral pleural effusion Chronic combined systolic and diastolic CHF (congestive heart failure) Constipation Essential (primary) hypertension Follicular lymphoma grade III History of non-ST elevation myocardial infarction (NSTEMI) (03/18/18) Hyperlipidemia Lymphadenopathy Obesity SOB (shortness of breath) Home Medications multivitamin 1 tab PO DAILY 02/25/18 [History Last Taken 03/16/18] cholecalciferol (vitamin D3) 50 mcg (2,000 unit) capsule 2,000 unit PO DAILY 05/14/19 [History Last Taken Unknown] alendronate 70 mg tablet (Fosamax) 70 mg PO TU 05/10/21 [History Last Taken Unknown] aspirin 81 mg tablet 81 mg PO DAILY 05/10/21 [History Last Taken Unknown] calcium 600 mg capsule 600 mg PO DAILY 05/10/21 [History Last Taken Unknown] lisinopril 5 mg tablet 10 mg PO DAILY 05/10/21 [History Last Taken Unknown] metoprolol succinate 50 mg tablet,extended release 24 hr 25 mg PO DAILY 05/10/21 [History Last Taken Unknown] rosuvastatin 10 mg tablet 10 mg PO DAILY 05/10/21 [History Last Taken Unknown] coenzyme Q10 100 mg capsule 100 mg PO DAILY 12/25/21 [History Last Taken Unknown] Allergy/AdvReac Type Severity Reaction Status Date / Time No Known Allergies Allergy Verified 12/25/21 13:40 Family History Father Diabetes Arthritis Heart disease Kidney disease Stomach ulcer Hypertension Sister Diabetes Arthritis Heart disease Hypertension Thyroid disorder Mother Breast cancer Cancer ovarian Brother Diabetes Kidney disease Hypertension Lymphoma Surgical History (Updated 08/21/21 @ 14:02 by Dori Oropeza) History of partial hysterectomy (~05/2021) History of thoracentesis (03/2018) Hx of lymph node biopsy (02/2018) No history of previous surgery Social History household members: spouse housing: house Smoking Status: Former smoker Tobacco: How many years used: 30 Electronic Cigarette Use: not used alcohol intake: never substance use type: does not use soraya/yarsani: Sikh seatbelt use: always do you feel safe at home: Yes ROS ROS ED Constitutional Constitutional ED: Denies chills or fever(s) Eyes Eyes: Denies change in vision or diplopia ENT ENT ED: Denies rhinorrhea or sore throat Cardiovascular Cardiovascular: Reports as per HPI and lightheadedness; Denies chest pain or palpitations Respiratory/Chest Respiratory/Chest: Denies cough or dyspnea Gastrointestinal Gastrointestinal: Reports as per HPI and abdominal pain; Denies diarrhea, nausea or vomiting Genitourinary Genitourinary ED: Denies dysuria or hematuria Musculoskeletal Musculoskeletal: Denies back pain or neck pain Integumentary Denies abscess or rash Neurologic Neurologic: Denies headache(s), paresthesias or weakness Psychiatric Psychiatric: Denies anxiety or suicidal thoughts EXAM Physical Exam Const Vital Signs: 03/27/22 05:26 03/27/22 05:26 03/27/22 05:31 Temperature 97.1 F L 97.1 F L Temperature Source Oral Oral Pulse Rate 56 L 61 Pulse Rate [Lying] Pulse Rate [Sitting (for 1 minute prior to obtaining)] Pulse Rate [Standing (for 1 minute prior to obtaining)] Respiratory Rate 12 16 Respiratory Effort Normal Respiratory Pattern Normal Blood Pressure 106/61 106/61 Blood Pressure [Lying] Blood Pressure [Sitting (for 1 minute prior to obtaining)] Blood Pressure [Standing (for 1 minute prior to obtaining)] Blood Pressure Mean 76 76 Blood Pressure Mean [Lying] Blood Pressure Mean [Sitting (for 1 minute prior to obtaining)] Blood Pressure Mean [Standing (for 1 minute prior to obtaining)] Pulse Ox 99 100 Oxygen Delivery Method Room Air Room Air 03/27/22 07:04 03/27/22 07:08 Temperature Temperature Source Pulse Rate 65 Pulse Rate [Lying] 54 L Pulse Rate [Sitting (for 1 minute prior to obtaining)] 60 Pulse Rate [Standing (for 1 minute prior to obtaining)] 56 L Respiratory Rate 16 Respiratory Effort Respiratory Pattern Blood Pressure 130/67 H Blood Pressure [Lying] 108/57 L Blood Pressure [Sitting (for 1 minute prior to obtaining)] 112/64 Blood Pressure [Standing (for 1 minute prior to obtaining)] 130/67 H Blood Pressure Mean 88 Blood Pressure Mean [Lying] 74 Blood Pressure Mean [Sitting (for 1 minute prior to obtaining)] 80 Blood Pressure Mean [Standing (for 1 minute prior to obtaining)] 88 Pulse Ox 99 Oxygen Delivery Method Room Air Positive well nourished and well developed General Appearance ED: well developed and NAD HEENT Reports moist mucous membranes normocephalic and atraumatic Eyes PERRL and EOMs intact bilaterally Neck full ROM and supple Resp normal respiratory effort and clear to auscultation bilaterally Cardio regular rate, regular rhythm and no murmurs Rate: other Other Details: Borderline bradycardic while patient keenly alert and conversive in full sentences without any distress or discomfort ; Negative for tachycardic GI non-tender and non-distended GI Narrative: No pulsatile mass palpable. Equal/symmetric 2+/4 posterior tibial pulses and 2+/4 radial pulses. Auscultation: normoactive bowel sounds Palpation: soft Back/Spine no CVA tenderness General Back: other FROM Extremity normal to inspection General Extremety ED: Negative for edema, pulses abnormal or tenderness General Extremity: Negative for edema or pulses abnormal Neuro oriented x3, CN's II-XII intact bilaterally and no sensory deficits noted Sensorium / Orientation: awake and alert Motor Exam: strength 5/5 throughout Skin no rashes or lesions noted and no wounds MDM MDM MDM Narrative Medical decision making narrative: I think this is most likely consistent with a vasovagal episode. The patient was orthostatic and had abdominal discomfort just prior to the onset, and all of it resolved together making ruptured AAA much less likely especially given her very benign exam, in addition to the fact that she actually had a CT scan here this past month that showed her abdominal aorta without any aneurysm make abnormality. She is borderline bradycardic. She is on metoprolol but a low-dose. Cardiac work-up was obtained in addition to basic labs since she does have a history of congestive heart failure according to the EMR, she was not aware of any history of heart problems. While obtaining these testing she was given a liter IV fluid bolus. Her EKG is normal without any evidence of an AV block, sinus bradycardia at 52 without any other abnormality. Labs are all normal except for an elevated BUN:Cr, indicating that possibly mild dehydration contributed to her symptoms/event. She does have a history of non-Hodgkin's lymphoma that is in remission, which is why she had her recent CT of the chest/abdomen/pelvis which was negative for any enlarged lymph nodes, but I do not think she needs to be worked up for pulmonary embolus because of this event since she is relatively bradycardic and not tachycardic, and has pulse oximetry of 100% on room air and no dyspnea or other thoracic symptoms. After fluids we performed orthostatics, these were normal and she felt fine without any lightheadedness, and at this time I am comfortable with her going home. Since she did not have any symptoms to suggest angina I do not think she needs to wait for a second troponin. Lab Data Attestation: I reviewed the patient's lab results. Labs: Laboratory Results - last 24 hr 03/27/22 03/27/22 06:00 06:00 WBC 7.0 RBC 4.01 L Hgb 12.2 Hct 37.3 MCV 93.0 MCH 30.4 MCHC 32.7 RDW Std Deviation 48.2 H RDW Coeff of Sven 14.1 Plt Count 214 MPV 11.7 Immature Gran % (Auto) 0.100 Neut % (Auto) 60.9 Lymph % (Auto) 25.3 [place] % (Auto) 10.5 H Eos % (Auto) 2.6 Baso % (Auto) 0.6 Absolute Neuts (auto) 4.2 Absolute Lymphs (auto) 1.76 Nucleated RBC % 0 Sodium 137 Potassium 3.9 Chloride 105 Carbon Dioxide 28.0 Anion Gap 4 L BUN 18 Creatinine 0.59 Estim Creat Clear Calc 44.54 Est GFR (MDRD) Af Amer 129 Est GFR (MDRD) Non-Af 107 BUN/Creatinine Ratio 30.3 H Glucose 92 Calcium 9.7 Troponin I High Sens 9 Rhythm Strip Rhythm Strip: Sinus Rhythm Rate: 55 Ectopy: None EKG Initial EKG: Attestation: I personally reviewed and interpreted this EKG as follows: Interpretation: No Acute Injury Pattern and Sinus Bradycardia Discharge Plan Triage Chief Complaint: Syncope ED Provider: Jayme Ricketts Dx/Rx/DC Orders Clinical Impression: Vasovagal near-syncope, Mild dehydration Instructions: ED Near-Fainting- Vagal Reaction Prescriptions: No Action coenzyme Q10 100 mg capsule 100 mg PO DAILY multivitamin 1 EACH tablet 1 tab PO DAILY cholecalciferol (vitamin D3) 2,000 UNIT capsule 2,000 unit PO DAILY rosuvastatin 10 mg tablet 10 mg PO DAILY calcium 600 mg Capsule 600 mg PO DAILY alendronate [Fosamax] 70 mg Tablet 70 mg PO TU aspirin 81 mg Tablet 81 mg PO DAILY metoprolol succinate 50 mg tablet extended release 24 hr 25 mg PO DAILY lisinopril 5 mg tablet 10 mg PO DAILY Primary Care Provider: Michael Tanner Referrals: Michael Tanner MD [Primary Care Provider] - 1-2 Days if not improving (despite drinking more fluid than usual today) Disposition Disposition: Home, Self Care
[2022-03-27] MEDS: 0.9% Normal Saline 1,000 ML 999 ML IV (06:04)
[2022-03-27 06:07] LABS: Absolute Lymphocyte Count 1.76 X10^3/uL (0.83-4.51); Absolute Neutrophil Count 4.2 X10^3/uL (2.0-7.7); Basophil# 0.04 X10^3/uL; Basophil% 0.6 % (0-1); Eosinophil# 0.18 X10^3/uL; Eosinophils% 2.6 % (0-5); Hematocrit 37.3 % (37-47); Hemoglobin 12.2 g/dL (12.0-15.0); Lymphocyte # 1.76 X10^3/ul (0.83-4.51); Lymphocyte % 25.3 % (19-41); Mean Corp Hgb Conc 32.7 g/dL (32-36); Mean Corpuscular Hgb 30.4 pg (27.0-32.0); Mean Platelet Vol. 11.7 fl (6.2-12.0); Monocyte# 0.73 X10^3/uL; Monocyte% 10.5 % (0-10); NRBC Flagged by Analyzer 0 % (0-5); Neutrophil # 4.24 X10^3/uL (2.7-7.7); Neutrophil % 60.9 % (47-70); Platelet Count 214 K/mm3 (150-450); RBC Distribution Width CV 14.1 % (11.6-14.6); RBC Distribution Width SD 48.2 fl (35.1-43.9); Red Blood Count 4.01 M/mm3 (4.2-5.4)
[2022-03-27 06:26] LABS: Anion Gap 4 (5-15); BUN 18 mg/dL (7-18); BUN/Creat Ratio 30.3 RATIO (10-20); Calcium,Total 9.7 mg/dL (8.5-10.1); Chloride 105 mmol/L (98-107); Creatinine, Serum 0.59 mg/dL (0.55-1.02); EST Glomerular Filtration Rate 107 mL/min (>60); Est Glom Filt Rate - Afr Amer 129 mL/min (>60); Estimated Creatinine Clearance 44.54 ml/min; Glucose 92 mg/dL (74-106); Potassium 3.9 mmol/L (3.5-5.1); Sodium Level 137 mmol/L (136-145); Troponin-I HS 9 pg/mL (3.0-54.0)
[2022-03-27 07:04] VITALS: BP 108/57; BP 112/64; BP 130/67; PULSE 54; PULSE 56; PULSE 60
[2022-03-27 07:08] VITALS: BP 130/67; PULSE 65; RESP 16; O2SAT 99
[2022-03-27 07:23] VITALS: BP 108/57; PULSE 65; RESP 16; O2SAT 94
[2022-03-27] MEDS: 0.9% Saline Lock 10 ML Syringe IV (07:23)
== END 2022-03-27 07:24 | disposition home or self-care (01) ==
PROVIDERS: Emergency Provider Emergency Medicine; PCP Family Medicine; Visit Provider Emergency Medicine
DX: R55 Syncope and collapse (principal); I50.42 Chronic combined systolic (congestive) and diastolic (congestive) heart failure; I11.0 Hypertensive heart disease with heart failure; R10.9 Unspecified abdominal pain; E86.0 Dehydration; E78.5 Hyperlipidemia, unspecified; Z87.891 Personal history of nicotine dependence; Z79.82 Long term (current) use of aspirin
CPT/HCPCS: 36591; 80048; 84484; 85025; 93005; 96360; 99285; J7030; A4216

== ENCOUNTER → 2022-09-07 | Outpatient (CLI) | payer MEDICARE, OTHER, SELFPAY ==
[2022-09-07 08:22] LABS: Bacteria 0 SEEN /hpf (None Seen); Mucous, Urine 0 SEEN /hpf (<or=2+); Red Blood Cells-Urine 0 SEEN /hpf (0-5); Squamous Epithelial Cells - UA 0 SEEN /hpf (5-10); White Blood Cells 0 SEEN /hpf (0-5)
[2022-09-07 10:17] LABS: Color, Urine Yellow (Yellow); Glucose, Dipstick Normal (Normal); Ketone-Dipstick Negative (Negative); Leukocyte Esterase-Dipstick Negative /ul (Negative); Nitrite-Dipstick Negative (Negative); Occult Blood-Urine Negative /ul (Negative); Protein-Dipstick Negative (Negative); Urine Bilirubin Dipstick Negative (Negative); Urine Clarity Clear (Clear); Urine Urobilinogen Normal (Normal)
[2022-09-07 10:19] LABS: Absolute Lymphocyte Count 1.48 X10^3/uL (0.83-4.51); Basophil# 0.04 X10^3/uL; Basophil% 0.8 % (0-1); Eosinophil# 0.14 X10^3/uL; Eosinophils% 2.6 % (0-5); Hematocrit 36.8 % (37-47); Hemoglobin 11.6 g/dL (12.0-15.0); Lymphocyte # 1.48 X10^3/ul (0.83-4.51); Mean Corp Hgb Conc 31.5 g/dL (32-36); Mean Corpuscular Hgb 30.3 pg (27.0-32.0); Mean Corpuscular Volume 96.1 fL (81-99); Mean Platelet Vol. 12.4 fl (6.2-12.0); Monocyte# 0.64 X10^3/uL; Monocyte% 12.1 % (0-10); NRBC Flagged by Analyzer 0 % (0-5); Neutrophil # 2.98 X10^3/uL (2.7-7.7); Neutrophil % 56.3 % (47-70); Platelet Count 206 K/mm3 (150-450); RBC Distribution Width SD 49.3 fl (35.1-43.9); Red Blood Count 3.83 M/mm3 (4.2-5.4); White Blood Count 5.3 K/mm3 (4.4-11.0)
[2022-09-07 10:44] LABS: Vitamin D,25 Hydroxy 61.3 ng/mL
[2022-09-07 10:55] LABS: ALB/GLOB Ratio 1.1 RATIO (0.9-2.4); AST(SGOT) 24 U/L (15-37); Alanine Aminotransfer ALT/SGPT 20 U/L (13-56); Albumin, Serum 3.6 g/dL (3.2-5.0); Alkaline Phosphatase 49 U/L (45-117); Anion Gap 8 (5-15); BUN 17 mg/dL (7-18); BUN/Creat Ratio 28.5 RATIO (10-20); Chloride 101 mmol/L (98-107); Cholesterol 153 mg/dL (200); EST Glomerular Filtration Rate 106 mL/min (>60); Est Glom Filt Rate - Afr Amer 129 mL/min (>60); Globulin 3.4 g/dL (2.2-4.2); Glucose 77 mg/dL (74-106); High Density Lipoprotein 78 mg/dL; Potassium 4.3 mmol/L (3.5-5.1); Sodium Level 135 mmol/L (136-145); Thyroid Stim Hormone (TSH) 2.86 uIU/mL (0.358-3.74); Triglycerides 59 mg/dL; Very Low Density Lipoprotein 12 mg/dL (5-40)
== END | disposition home or self-care (01) ==
LOC: MFPLAB 08:18
PROVIDERS: PCP Family Medicine; Visit Provider Family Medicine
DX: I25.10 Atherosclerotic heart disease of native coronary artery without angina pectoris (principal); I10 Essential (primary) hypertension; M81.0 Age-related osteoporosis without current pathological fracture
CPT/HCPCS: 36415; 80053; 80061; 81001; 82306; 84443; 85025

== ENCOUNTER → 2023-01-08 | Outpatient (CLI) | payer MEDICARE, OTHER, SELFPAY ==
[2023-01-08 10:21] LABS: Absolute Lymphocyte Count 1.48 X10^3/uL (0.83-4.51); Absolute Neutrophil Count 6.6 X10^3/uL (2.0-7.7); Basophil# 0.05 X10^3/uL; Basophil% 0.6 % (0-1); Eosinophil# 0.15 X10^3/uL; Eosinophils% 1.7 % (0-5); Hematocrit 36.4 % (37-47); Hemoglobin 11.8 g/dL (12.0-15.0); Lymphocyte # 1.48 X10^3/ul (0.83-4.51); Lymphocyte % 16.3 % (19-41); Mean Corp Hgb Conc 32.4 g/dL (32-36); Mean Corpuscular Hgb 30.5 pg (27.0-32.0); Mean Corpuscular Volume 94.1 fL (81-99); Mean Platelet Vol. 12.5 fl (6.2-12.0); Monocyte# 0.81 X10^3/uL; Monocyte% 8.9 % (0-10); NRBC Flagged by Analyzer 0 % (0-5); Neutrophil # 6.55 X10^3/uL (2.7-7.7); Neutrophil % 72.2 % (47-70); Platelet Count 217 K/mm3 (150-450); RBC Distribution Width CV 14.3 % (11.6-14.6); RBC Distribution Width SD 49.6 fl (35.1-43.9); Red Blood Count 3.87 M/mm3 (4.2-5.4); White Blood Count 9.1 K/mm3 (4.4-11.0)
[2023-01-08 10:52] LABS: Vitamin D,25 Hydroxy 67.4 ng/mL
[2023-01-08 10:53] LABS: ALB/GLOB Ratio 1.1 RATIO (0.9-2.4); AST(SGOT) 22 U/L (15-37); Alanine Aminotransfer ALT/SGPT 26 U/L (13-56); Albumin, Serum 3.7 g/dL (3.2-5.0); Alkaline Phosphatase 46 U/L (45-117); Anion Gap 5 (5-15); BUN 12 mg/dL (7-18); BUN/Creat Ratio 17.5 RATIO (10-20); Calcium,Total 9.9 mg/dL (8.5-10.1); Chloride 100 mmol/L (98-107); Cholesterol 146 mg/dL (200); Creatinine, Serum 0.69 mg/dL (0.55-1.02); EST Glomerular Filtration Rate 90 mL/min (>60); Est Glom Filt Rate - Afr Amer 109 mL/min (>60); Globulin 3.4 g/dL (2.2-4.2); Glucose 84 mg/dL (74-106); High Density Lipoprotein 74 mg/dL; Potassium 4.2 mmol/L (3.5-5.1); Protein, Total 7.1 g/dL (6.4-8.2); Sodium Level 132 mmol/L (136-145); Triglycerides 67 mg/dL; Very Low Density Lipoprotein 13 mg/dL (5-40)
== END | disposition home or self-care (01) ==
PROVIDERS: PCP Family Medicine; Visit Provider Family Medicine
DX: E78.5 Hyperlipidemia, unspecified (principal); M81.0 Age-related osteoporosis without current pathological fracture
CPT/HCPCS: 36415; 80053; 80061; 82306; 85025

== ENCOUNTER → 2023-02-13 | Outpatient (CLI) | payer MEDICARE, OTHER, SELFPAY ==
[2023-02-13 18:13] LABS: Anion Gap 4 (5-15); BUN 19 mg/dL (7-18); BUN/Creat Ratio 27.3 RATIO (10-20); Calcium,Total 10.3 mg/dL (8.5-10.1); Chloride 100 mmol/L (98-107); EST Glomerular Filtration Rate 89 mL/min (>60); Est Glom Filt Rate - Afr Amer 107 mL/min (>60); Glucose 77 mg/dL (74-106); Potassium 4.1 mmol/L (3.5-5.1); Sodium Level 133 mmol/L (136-145)
== END | disposition home or self-care (01) ==
LOC: MFPLAB 14:34
PROVIDERS: PCP Family Medicine; Visit Provider Family Medicine
DX: E87.1 Hypo-osmolality and hyponatremia (principal)
CPT/HCPCS: 36415; 80048

== ENCOUNTER → 2023-03-11 | Outpatient (CLI) | payer MEDICARE, OTHER, SELFPAY ==
--- NOTE | 2023-03-11 09:42 | BI_ITS ---
MAMMOGRAPHY - BILATERAL SCREENING REASON FOR EXAM: Female, 67 years old. Routine annual screening examination. PERTINENT HISTORY: Mother with breast cancer. TECHNIQUE: Digital bilateral breast adis (3D mammographic acquisition) in the CC and MLO projections. 2-D mediolateral oblique (MLO) and craniocaudad (CC) views of both breasts were obtained. CAD: Full Field Digital Mammography with Computer Added Detection was performed. COMPARISON: Comparison is made with prior study dated March 09, 2022 and March 08, 2021. FINDINGS: Breast Composition: The breasts are heterogeneously dense, which may obscure small masses. There are no dominant masses or suspicious calcifications. No other significant abnormalities are identified. There has been no significant change since the prior study. BI/SCRN MAMM (CAD)W/ADIS BILAT IMPRESSION: Stable bilateral screening mammogram. Yearly follow-up mammogram recommended. (A) ASSESSMENT CATEGORY: BIRADS Category 1: Negative. A letter regarding these results will be sent to the patient by the facility within 30 days. Approximately 10% of breast cancers are not detected by mammography. A normal mammogram should not delay biopsy of a clinically suspicious abnormality. [id number] Electronically Signed: Denny Juarez MD at 13:01 EST ,
== END | disposition home or self-care (01) ==
LOC: OPBI 09:42
PROVIDERS: PCP Family Medicine; Referring Provider Internal Medicine Hematology & Oncology; Visit Provider Internal Medicine Hematology & Oncology
DX: Z12.31 Encounter for screening mammogram for malignant neoplasm of breast (principal); Z80.3 Family history of malignant neoplasm of breast
CPT/HCPCS: 77063; 77067

== ENCOUNTER → 2023-03-27 | Outpatient (CLI) | payer MEDICARE, OTHER, SELFPAY ==
[2023-03-28 08:03] LABS: PTHIN 73.5 pg/mL (18.4-80.1)
== END | disposition home or self-care (01) ==
LOC: MFPLAB 12:04
PROVIDERS: PCP Family Medicine; Visit Provider Nurse Practitioner Family
DX: E83.52 Hypercalcemia (principal)
CPT/HCPCS: 36415; 83970

== ENCOUNTER → 2023-05-21 | Outpatient (CLI) | payer MEDICARE, OTHER, SELFPAY ==
--- NOTE | 2023-05-21 13:35 | CT_ITS ---
STUDY: LOW DOSE CT LUNG CANCER SCREENING REASON FOR EXAM: Female, 67 years old. Lung cancer screening -- and gt;20 pk yr hx;former smoker;asymptomatic RADIATION DOSAGE (If Supplied By Facility): CTDIvol = ( 3.02 ) mGy, DLP = ( 97.79 ) mGycm TECHNIQUE: No contrast was administered. Low dose technique was utilized (average mAS-38 and kVp 120). 1.25 mm axial source images with a slice interval of 1.25-mm were reconstructed in lung windows. 2.5 mm axial source images with a slice interval of 2.5-mm were reconstructed in lung windows. 5.0 mm axial source images with a slice interval of 5.0-mm were reconstructed in soft tissue windows. COMPARISON: Comparison is made with prior study dated March 09, 2022. NODULES: No suspicious nodules are seen. Emphysema: Mild emphysematous changes. Endobronchial lesion: None Aorta: Atherosclerotic plaque formation of the aortic arch. CORONARY ARTERIES: Coronary artery calcification is seen. Heart: Unremarkable. Pulmonary artery: Unremarkable. Mediastinal nodes: Small mediastinal lymph nodes. Other chest and abdominal findings: CT/Low Dose CT Lung Screening IMPRESSION: Lung-RADS category 2 - Continue annual screening with LDCT in 12 months. IMPORTANT NOTES FOR USE: ACR Lung-RADS Version 1.1 Assessment Categories Release Date: 2018 Category: Coded 0-4 bases on nodule(s) with highest degree of suspicion. Negative screen is defined as categories 1 and 2; a positive screen is defined as categories 3 and 4. Category 3 and 4A nodules that are unchanged on interval CT should be coded as category 2, and individuals returned to screening in 12 months. Category 4X: Category 3 or 4 nodules with additional imaging findings that increase the suspicion of lung cancer, such as spiculation, GGN that doubles in size in 1 year, enlarged lymph notes, etc. Category Modifiers: S (significant finding unrelated to lung cancer) Electronically Signed: Denny Juarez MD at 14:24 EST ,
--- OUTSIDE RECORDS SUMMARY | 2023-05-21 17:42 | XMS RPT_ITS | CCD ---
Author Name Unknown Address [address] [place] [address] Organization [facility] Care Team Providers Care Manager Game Name Role Phone Kathy Thomas Unavailable Unavailable UNKNOWN, PROVIDER Unavailable Unavailable Demetrius Ryan Unavailable Unavailable Problems Active Problems Problem Classification Problem Date Documented Date Episodic/Chronic Diverticulosis and diverticulitis (2 sources) Diverticulosis of large intestine without perforation or abscess without bleeding; Translations: [Dvrtclos of lg int w/o perforation or abscess w/o bleeding] Onset: 01-01-2017 Chronic Substance-related disorders (2 sources) Nicotine dependence, cigarettes, uncomplicated; Translations: [Nicotine dependence, cigarettes, uncomplicated] Onset: 01-01-2017 Chronic Past or Other Problems Problem Classification Problem Date Documented Da te Episodic/Chronic Hemorrhoids (2 sources) First degree hemorrhoids; Translations: [First degree hemorrhoids] Onset: 01-01-2017 Episodic Other aftercare (2 sources) 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; Translations: [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] Onset: 01-01-2017 Episodic Unclassified (2 sources) Encounter for screening for malignant neoplasm of colon; Translations: [Encounter for screening for malignant neoplasm of colon] Onset: 01-01-2017 Episodic Unclassified (6 sources) Family history of diabetes mellitus; Translations: [Family history of malignant neoplasm of ovary] Onset: 01-01-2017 Episodic Results Test Name Value Interpretation Reference Range Facil ity Encounters Encounter Date Encounter Type Care Provider Facility Start: 01-01-2017 Ambulatory [facility] Payers Date Payer Category Payer Policy ID Unknown Summary Purpose Family History No Family History Records FoundNo Family History Records FoundNo Family History Records Found Advance Directives No Advanced Directives Records FoundNo Advanced Directives Records FoundNo Advanced Directives Records Found Additional Source Comments INFORMATION SOURCE (unrecogn ized section and content) DATE CREATED AUTHOR AUTHOR'S ORGANIZ ATION 03/10/2018 [facility] DATE CREATED AUTHOR AUTHOR'S ALYSHA MORAN 06/05/2021 [facility] FOR RECORDS PERTAINING TO PATIENTS WHO ARE OR HAVE BEEN ENROLLED IN A CHEMICAL DEPENDENCY/SUBSTANCEABUSE PROGRAM, SOME INFORMATION MAY BE OMITTED. This clinical summary was aggregated from multiple sources. Caution should be exercised in using it in the provision of clinical care. This summary normalizes information from multiple sources, and as a consequence, information in this document may materially change the coding, format and clinical context of patient data. In addition, data may be omitted in some cases. CLINICAL DECISIONS SHOULD BE BASED ON THE PRIMARY CLINICAL RECORDS. [facility] [employer] provides no warranty or guarantee of the accuracy or completeness of information in this document.
== END | disposition home or self-care (01) ==
LOC: CT 13:34
PROVIDERS: PCP Family Medicine; Referring Provider Nurse Practitioner Family; Visit Provider Nurse Practitioner Family
DX: Z12.2 Encounter for screening for malignant neoplasm of respiratory organs (principal); Z87.891 Personal history of nicotine dependence
CPT/HCPCS: 71271

== ENCOUNTER → 2023-06-27 | Outpatient (CLI) | payer MEDICARE, OTHER, SELFPAY ==
[2023-06-27 12:23] LABS: Absolute Lymphocyte Count 1.63 X10^3/uL (0.83-4.51); Basophil# 0.04 X10^3/uL; Basophil% 0.6 % (0-1); Eosinophils% 1.5 % (0-5); Hematocrit 36.4 % (37-47); Hemoglobin 11.6 g/dL (12.0-15.0); Lymphocyte # 1.63 X10^3/ul (0.83-4.51); Lymphocyte % 24.9 % (19-41); Mean Corp Hgb Conc 31.9 g/dL (32-36); Mean Corpuscular Hgb 30.4 pg (27.0-32.0); Mean Corpuscular Volume 95.3 fL (81-99); Mean Platelet Vol. 12.7 fl (6.2-12.0); Monocyte# 0.75 X10^3/uL; Monocyte% 11.5 % (0-10); NRBC Flagged by Analyzer 0 % (0-5); Neutrophil # 4.01 X10^3/uL (2.7-7.7); Neutrophil % 61.3 % (47-70); Platelet Count 204 K/mm3 (150-450); RBC Distribution Width SD 48.8 fl (35.1-43.9); Red Blood Count 3.82 M/mm3 (4.2-5.4); White Blood Count 6.5 K/mm3 (4.4-11.0)
[2023-06-27 13:47] LABS: Vitamin D,25 Hydroxy 60.8 ng/mL
[2023-06-27 14:46] LABS: ALB/GLOB Ratio 1.2 RATIO (0.9-2.4); AST(SGOT) 22 U/L (15-37); Alanine Aminotransfer ALT/SGPT 22 U/L (13-56); Albumin, Serum 3.8 g/dL (3.2-5.0); Alkaline Phosphatase 51 U/L (45-117); Anion Gap 4 (5-15); BUN 22 mg/dL (7-18); BUN/Creat Ratio 31.1 RATIO (10-20); Calcium,Total 10.3 mg/dL (8.5-10.1); Chloride 102 mmol/L (98-107); Cholesterol 160 mg/dL (200); Creatinine, Serum 0.71 mg/dL (0.55-1.02); EST Glomerular Filtration Rate 87 mL/min (>60); Est Glom Filt Rate - Afr Amer 105 mL/min (>60); Globulin 3.2 g/dL (2.2-4.2); Glucose 85 mg/dL (74-106); High Density Lipoprotein 79 mg/dL; Potassium 4.6 mmol/L (3.5-5.1); Sodium Level 134 mmol/L (136-145); Triglycerides 77 mg/dL; Very Low Density Lipoprotein 15 mg/dL (5-40)
== END | disposition home or self-care (01) ==
LOC: MFPLAB 09:41
PROVIDERS: PCP Family Medicine; Visit Provider Family Medicine
DX: E55.9 Vitamin D deficiency, unspecified (principal); I25.10 Atherosclerotic heart disease of native coronary artery without angina pectoris
CPT/HCPCS: 36415; 80053; 80061; 82306; 85025

== ENCOUNTER → 2023-10-30 | Outpatient (CLI) | payer MEDICARE, OTHER, SELFPAY ==
[2023-10-30 09:58] LABS: Absolute Lymphocyte Count 1.31 X10^3/uL (0.83-4.51); Absolute Neutrophil Count 3.5 X10^3/uL (2.0-7.7); Basophil# 0.04 X10^3/uL; Basophil% 0.7 % (0-1); Eosinophil# 0.14 X10^3/uL; Eosinophils% 2.5 % (0-5); Hematocrit 35.6 % (37-47); Hemoglobin 11.8 g/dL (12.0-15.0); Lymphocyte # 1.31 X10^3/ul (0.83-4.51); Lymphocyte % 23.1 % (19-41); Mean Corp Hgb Conc 33.1 g/dL (32-36); Mean Corpuscular Hgb 30.9 pg (27.0-32.0); Mean Corpuscular Volume 93.2 fL (81-99); Mean Platelet Vol. 11.9 fl (6.2-12.0); Monocyte# 0.63 X10^3/uL; Monocyte% 11.1 % (0-10); NRBC Flagged by Analyzer 0 % (0-5); Neutrophil # 3.54 X10^3/uL (2.7-7.7); Neutrophil % 62.4 % (47-70); Platelet Count 173 K/mm3 (150-450); RBC Distribution Width CV 13.4 % (11.6-14.6); RBC Distribution Width SD 46.2 fl (35.1-43.9); Red Blood Count 3.82 M/mm3 (4.2-5.4); White Blood Count 5.7 K/mm3 (4.4-11.0)
[2023-10-30 10:10] LABS: ALB/GLOB Ratio 1.1 RATIO (0.9-2.4); AST(SGOT) 20 U/L (15-37); Alanine Aminotransfer ALT/SGPT 22 U/L (13-56); Albumin, Serum 3.6 g/dL (3.2-5.0); Alkaline Phosphatase 47 U/L (45-117); Anion Gap 4 (5-15); BUN 15 mg/dL (7-18); BUN/Creat Ratio 19.7 RATIO (10-20); Chloride 100 mmol/L (98-107); Cholesterol 138 mg/dL (200); Creatinine, Serum 0.76 mg/dL (0.55-1.02); EST Glomerular Filtration Rate 80 mL/min (>60); Est Glom Filt Rate - Afr Amer 96 mL/min (>60); Globulin 3.4 g/dL (2.2-4.2); Glucose 82 mg/dL (74-106); High Density Lipoprotein 66 mg/dL; Potassium 4.2 mmol/L (3.5-5.1); Sodium Level 133 mmol/L (136-145); Triglycerides 75 mg/dL; Very Low Density Lipoprotein 15 mg/dL (5-40)
[2023-10-30 10:27] LABS: Vitamin D,25 Hydroxy 62.1 ng/mL
== END | disposition home or self-care (01) ==
LOC: MFPLAB 08:32
PROVIDERS: PCP Family Medicine; Visit Provider Family Medicine
DX: E55.9 Vitamin D deficiency, unspecified (principal); I25.10 Atherosclerotic heart disease of native coronary artery without angina pectoris
CPT/HCPCS: 36415; 80053; 80061; 82306; 85025

== ENCOUNTER → 2024-03-13 | Outpatient (CLI) | payer MEDICARE, OTHER, SELFPAY ==
--- NOTE | 2024-03-13 09:45 | BI_ITS ---
MAMMOGRAPHY - BILATERAL SCREENING REASON FOR EXAM: Female, 68 years old. Routine annual screening examination. PERTINENT HISTORY: Mother with breast cancer. History of a prior diagnosis of lymphoma. TECHNIQUE: Digital bilateral breast adis (3D mammographic acquisition) in the CC and MLO projections. 2-D mediolateral oblique (MLO) and craniocaudad (CC) views of both breasts were obtained. CAD: Full Field Digital Mammography with Computer Added Detection was performed. COMPARISON: Comparison is made with prior study March 11, 2023 and March 09, 2022. FINDINGS: Breast Composition: The breasts are extremely dense, which lowers the sensitivity of mammography. There are no dominant masses or suspicious calcifications. No other significant abnormalities are identified. There has been no significant change since the prior study. BI/SCRN MAMM (CAD)W/ADIS BILAT IMPRESSION: Stable bilateral screening mammogram. Yearly follow-up mammogram recommended. (A) ASSESSMENT CATEGORY: BIRADS Category 1: Negative. A letter regarding these results will be sent to the patient by the facility within 30 days. Approximately 10% of breast cancers are not detected by mammography. A normal mammogram should not delay biopsy of a clinically suspicious abnormality. [id number] Electronically Signed: Denny Juarez MD at 8:36 EST ,
== END | disposition home or self-care (01) ==
LOC: OPBI 09:44
PROVIDERS: PCP Family Medicine; Referring Provider Internal Medicine Hematology & Oncology; Visit Provider Internal Medicine Hematology & Oncology
DX: Z12.31 Encounter for screening mammogram for malignant neoplasm of breast (principal); Z80.3 Family history of malignant neoplasm of breast
CPT/HCPCS: 77063; 77067

== ENCOUNTER → 2024-05-26 | Outpatient (CLI) | payer MEDICARE, OTHER, SELFPAY ==
--- NOTE | 2024-05-26 13:03 | CT_ITS ---
PROCEDURE: LOW DOSE CT LUNG SCREENING REASON FOR EXAM: Patient has smoked 1 pack per day for 52 years. History of lymphoma. TECHNIQUE: Low Dose CT Lung Screening without contrast COMPARISON: Comparison is made with prior study dated May 21, 2023. FINDINGS: PULMONARY NODULES: (Only nodules >6mm are reported) Nodules described below are on series 1 unless otherwise specified. Pulmonary Nodules: No concerning pulmonary nodules. Hardware:None Lymph Nodes:Small mediastinal lymph nodes. Heart and Vasculature:Normal heart size. No pericardial effusion.Atherosclerotic calcifications of the thoracic aorta. Thoracic aorta and pulmonary arteries have normal contours; noncontrast technique limits evaluation. Coronary Artery Calcifications: Present Lungs and Airways: The lungs are normally expanded and clear. Pleura:No pleural effusion. No pneumothorax. Upper Abdomen:Visualized portions of the upper abdominal viscera are unremarkable. Bones:Degenerative changes of the thoracic spine. CT/Low Dose CT Lung Screening IMPRESSION: 1. BASED ON THE ACR LUNG RADS FOR THE MOST SUSPICIOUS NODULE (IF ANY) DESCRIBE D IN THIS REPORT, THE OVERALL LUNG RADS SCORE IS 1. 1 - NEGATIVE. RECOMMEND 12-MONTH SCREENING LDCT.. 2. SMOKING CESSATION COUNSELING IS RECOMMENDED IF THE PATIENT IS STILL SMOKING . 3. OTHER SIGNIFICANT FINDINGSNone. One or more dose reduction techniques were used (e.g., Automated exposure contr ol, adjustment of the mA and/or kV according to patient size, use of iterative reconstruction technique). The following information is provided for reference:Lung-RADS 2021 Assessment C ategories. Additional information involving Lung-RADS is available at www.acr.org. 0-INCOMPLETE 1-NEGATIVE:No nodules or definitely benign nodules. Complete, central, popcorn , or centric ring calcifications OR fat containing 2-BENIGN APPEARANCE (based on imaging features or indolent behavior). Juxtaple ural nodule: < 10mm AND solid; smooth margins; oval, entiform, or triangular shape Solid nodule: <6mm at baseline or new< 4mm Part solid Nodule: < 6mm total mean diameter at baseline Nonsolid nodule:(GGN) < 30mm OR >=30mm stable or slowly growing Airway nodule, subsegmental at baseline, new, or stable Category 3 nodule stabl e or decreased in size at 6-month follow-up CT or Category 3 or 4A nodules that resolve on follow-up OR category 4B findings prov en to be benign following diagnotic work up. 3 - Probably Benign (Based on imaging features or behavior) Solid Nodule: >= 6 to <8mm at baseline OR new 4 to <6mm Part-solid nodule: >= 6mm toal mean diam. with solid component <6mm at baseline OR new < 6mm total mean diam. Non-solid nodule: GGN >= 30mm at baseline or new Atypical pulmonary cyst: Growing cystic component (mean diam.) of thick-walled cyst Category 4A nodule stable or decreased in size at 3-month follow-up CT (excl.ai rway). 4A - Suspicious Solid nodule: >=8 to < 15mm at baseline OR growing < 8mm OR new 6 to < 8mm Part solid nodule: >= 6mm total mean diam. w/ solid component >=6mm to < 8mm at baseline OR new or growing < 4mm solid component Airway nodule, segmental or more proximal at baseline or new Atypical pulmonary cyst: Thick-walled OR multilocular at baseline OR becomes mu ltilocular 4B - Very Suspicious Airway nodule, segmental or more proximal, and stable or growing Solid nodule: >= 15mm at baseline OR new or growing >= 8mm Part solid nodule: Solid component >= 8mm OR new or growing >= 4mm solid compon ent Atypical pulmonary cyst: Thick-walled with growing wall thickness/nodularity OR Growing multilocular (mean diam.) OR Multilocular with increased loculation or new/increased opacity Slow-growing solid or part solid nodule w/ growth over multiple screening exams 4X - Very Suspicious Category 3 or 4 nodules with additional features that increase the suspicion fo r lung cancer. S - Clinically Significant or potentially significant findings (non-lung cancer ) Reading Location: [id number]
--- NOTE | 2024-05-26 13:36 | BD_ITS ---
PROCEDURE: DEXA BONE DENSITY STUDY REASON FOR EXAM: F, age 68 y/o . Postmenopausal. TECHNIQUE: DEXA scan of the lumbar spine and both hips. COMPARISON: Comparison is made with prior study dated March 16, 2021. FINDINGS: Lumbar Spine (L1-L4): g/cm2 (0.892)/T-score (-1.4)/Z-score (0.7) findings are suggestive of osteopenia with a low fracture risk. Left Femur Total: g/cm2 (0.709)/T-score (-1.9)/Z-score (-0.4) Left Femoral Neck: g/cm2 (0.580)/T-score (-2.4)/Z-score (-0.6) Right Femur Total: g/cm2 (0.651)/T-score (-2.4)/Z-score (-0.9) Right Femoral Neck: g/cm2 (0.556)/T-score (-2.6)/Z-score (-0.8) The T-Scores on the most recent prior examination were: Lumbar Spine (L1-L4): There has been loss of bone density since the previous examination. Left Femur Total: Loss of 0.4%. Right Femur Total: Loss of 0.4%. BD/Dexa Bone Density Study IMPRESSION: The patient is considered osteoporotic as outlined below according to World Hea th Organization (WHO) criteria with a high fracture risk. There has been loss of bone density since the previous examinat ion. Reading Location: [place] [id number]
== END | disposition home or self-care (01) ==
PROVIDERS: PCP Family Medicine; Referring Provider Family Medicine; Visit Provider Family Medicine
DX: Z12.2 Encounter for screening for malignant neoplasm of respiratory organs (principal); Z78.0 Asymptomatic menopausal state; M81.0 Age-related osteoporosis without current pathological fracture; Z87.891 Personal history of nicotine dependence
CPT/HCPCS: 71271; 77080

== ENCOUNTER 2024-08-03 08:33 | Emergency (ER) | payer MEDICARE, OTHER, SELFPAY ==
[2024-08-03 08:34] VITALS: BP 148/74; PULSE 56; RESP 16; TEMP 37; O2SAT 99; BMI 25.7
--- NOTE | 2024-08-03 08:57 | RAD_ITS ---
PROCEDURE: CHEST 1 VIEW (PORTABLE) 08/03/2024 REASON FOR EXAM: CHEST PAIN TECHNIQUE: Frontal view of the chest. COMPARISON: CT chest 05/26/2024. FINDINGS: Hardware: None. Heart: The heart size is normal. Lungs: No focal consolidation, pleural effusion or pneumothorax. Bones: Degenerative changes are identified within the thoracic spine. RAD/Chest 1 View (Portable) IMPRESSION: Negative Chest. Reading Location: [id number]
--- NOTE | 2024-08-03 08:57 | EKG12_ITS ---
Test Reason : CHEST PRESSURE Blood Pressure : */* mmHG Vent. Rate : 54 BPM Atrial Rate : 54 BPM P-R Int : 184 ms QRS Dur : 80 ms QT Int : 408 ms P-R-T Axes : 69 47 63 degrees QTcB Int : 386 ms Sinus bradycardia with Premature atrial complexes Otherwise normal ECG Confirmed by KAMALA MATA, HOLDEN ([id number]), editor house organ MCKENZIE RODRIGUEZ ([id number]) on 08/05/2024 7:58:20 AM Referred By: Confirmed By: HOLDEN WRAY MD
--- NOTE | 2024-08-03 08:57 | ED.VIS.CHEST ---
HPI History of Present Illness Chief Complaint: Chest Pain Informant: patient and spouse/S.O. Narrative Narrative: 68-year-old female presenting to the emergency room for evaluation of chest pressure. Patient states that she has had this chest pressure before and felt that it was related to her bra strap being too tight. She states that last night around 10 PM is when she has noticed that she was able to get some sleep. States it was still present mildly this morning. Nothing seems to make it better or worse. She does not associated with any other symptoms. She tells me that she has a history of lymphoma and had pleural effusions in the past. She states she has not had any known heart attacks or stress testing/heart cath in the past. She tells me that she is currently does not have medical problems. She is on lisinopril and a cholesterol medication. Patient notes no change in exercise tolerance. She states she was vacuuming yesterday using the attachment and wonders if she strained a muscle in her chest. She denies any change in chronic leg swelling. She denies any prior DVT or PE. No reported fevers or cough. [facility] Medical History History of tobacco use Encounter for screening for malignant neoplasm of lung Adnexal mass History of non-ST elevation myocardial infarction (NSTEMI) (03/18/18) Chronic combined systolic and diastolic CHF (congestive heart failure) Hyperlipidemia Essential (primary) hypertension Obesity Acute diastolic (congestive) heart failure Bilateral pleural effusion SOB (shortness of breath) Follicular lymphoma grade III Lymphadenopathy Constipation Home Medications ?Medication ?Instructions ?Recorded ?Last Taken ?Type multivitamin 1 tab PO DAILY 02/25/18 03/16/18 History cholecalciferol (vitamin D3) 50 2,000 unit PO DAILY 05/14/19 Unknown History mcg (2,000 unit) capsule alendronate 70 mg tablet (Fosamax) 70 mg PO TU 05/10/21 Unknown History rosuvastatin 10 mg tablet 10 mg PO DAILY 05/10/21 Unknown History coenzyme Q10 100 mg capsule 100 mg PO DAILY 12/25/21 Unknown History lisinopril 10 mg tablet 10 mg PO DAILY 08/03/24 08/03/24 History metoprolol succinate 25 mg 25 mg PO DAILY 08/03/24 08/03/24 History tablet,extended release 24 hr Allergy/AdvReac Type Severity Reaction Status Date / Time No Known Allergies Allergy Verified 05/26/24 12:36 Family History Father Diabetes Arthritis Heart disease Kidney disease Stomach ulcer Hypertension Sister Diabetes Arthritis Heart disease Hypertension Thyroid disorder Mother Breast cancer Cancer ovarian Brother Diabetes Kidney disease Hypertension Lymphoma Surgical History History of partial hysterectomy (~05/2021) History of thoracentesis (03/2018) Hx of lymph node biopsy (02/2018) No history of previous surgery Social History household members: spouse housing: house Smoking Status: Former smoker Tobacco: How many years used: 30 Electronic Cigarette Use: not used alcohol intake: never substance use type: does not use soraya/jew: [employer] seatbelt use: always do you feel safe at home: Yes ROS ROS ED Constitutional Constitutional ED: Denies chills, fever(s) or weight loss Eyes Eyes: Denies change in vision or diplopia ENT ENT ED: Denies ear pain, rhinorrhea or sore throat Cardiovascular Cardiovascular: Reports as per HPI and chest pain; Denies orthopnea, palpitations or racing heartbeat Respiratory/Chest Respiratory/Chest: Denies cough, dyspnea or orthopnea Gastrointestinal Gastrointestinal: Denies abdominal pain, diarrhea, nausea or vomiting Genitourinary Genitourinary ED: Denies dysuria, hematuria or urinary frequency Musculoskeletal Musculoskeletal: Denies arthralgias or myalgias Integumentary Denies abscess or rash Neurologic Neurologic: Denies headache(s) or weakness Psychiatric Psychiatric: Denies anxiety, depression, suicidal ideation or suicidal thoughts Endocrine Endocrinology: Denies polydipsia, polyphagia or polyuria Allergic/Immunologic Allergic/Immunologic ED: Denies mouth swelling, tongue swelling or urticaria EXAM Physical Exam Const Vital Signs: 08/03/24 08:34 08/03/24 10:34 Temperature 98.6 F Temperature Source Oral Pulse Rate 56 L 47 L Respiratory Rate 16 13 Blood Pressure 148/74 H 123/60 H Blood Pressure Mean 98 81 Pulse Ox 99 98 Oxygen Delivery Method Room Air Room Air Positive well nourished and well developed General Appearance ED: well developed and NAD HEENT Reports normocephalic, head/scalp atraumatic and moist mucous membranes Eyes PERRL and EOMs intact bilaterally Neck no lymphadenopathy, supple and no JVD Resp normal respiratory effort and clear to auscultation bilaterally Cardio regular rate, regular rhythm and no murmurs GI normal to inspection, nondistended, normoactive bowel sounds and non-tender Palpation: soft Back/Spine no CVA tenderness and normal ROM Extremity normal to inspection General Extremety ED: Negative for edema General Extremity: Negative for edema Neuro oriented x3 and CN's II-XII intact bilaterally Sensorium / Orientation: alert Motor Exam: strength 5/5 throughout Psych mental status grossly normal Mood & Affect: Negative for depressed or tearful Skin no rashes or lesions noted and no wounds MDM MDM MDM Narrative Medical decision making narrative: Differential diagnosis includes but not limited to acute coronary syndrome pleural effusion pneumonia pneumothorax aortic dissection pulmonary embolism chest wall strain My independent interpretation a chest x-ray is no acute process no pleural effusion or pneumothorax is noted. Normal mediastinal silhouette. EKG is a sinus rhythm with no definitive ST elevation or depression. Troponin is 7 and represents greater than 8 hours since the onset of her symptoms. D-dimer is normal at 0.46. White count 7.1 hemoglobin 12.6 platelet count of 177. Normal BMP. At this point I think the patient can be discharged home. This could be muscular strain. I do not see evidence of ACS embolism dissection aneurysm pneumothorax pleural effusion. Patient is comfortable with follow-up return if worsening or concerns History & Record Review Discussion w/independent historian: Patient and Significant other Additional record(s) reviewed:: Prior outpatient record, Prior ED visit and Prior labs Lab Data Attestation: I reviewed the patient's lab results. Labs: Laboratory Results - last 24 hr 08/03/24 08/03/24 09:03 09:18 WBC 7.1 RBC 4.06 L Hgb 12.6 Hct 37.0 MCV 91.1 MCH 31.0 MCHC 34.1 RDW Std Deviation 45.9 H RDW Coeff of Sven 13.5 Plt Count 177 MPV 11.8 Immature Gran % (Auto) 0.100 Neut % (Auto) 71.6 H Lymph % (Auto) 17.3 L [place] % (Auto) 9.0 Eos % (Auto) 1.4 Baso % (Auto) 0.6 Absolute Neuts (auto) 5.1 Absolute Lymphs (auto) 1.23 Nucleated RBC % 0 D-Dimer Quant (PE/DVT) Cancelled 0.46 Sodium 135 Potassium 4.5 Chloride 101 Carbon Dioxide 22.7 Anion Gap 11 BUN 13 Creatinine 0.68 L Estim Creat Clear Calc 58.23 Est GFR (MDRD) Non-Af 94 BUN/Creatinine Ratio 19.7 Glucose 72 Calcium 10.5 Troponin T High Sens 7 Radiography Diagnostic Testing: Clinical Impression(s) from Imaging Studies Chest X-Ray 08/03/24 08:57 IMPRESSION: Negative Chest. Reading Location: [facility] EKG Initial EKG: Attestation: I personally reviewed and interpreted this EKG as follows: Comments: Sinus bradycardia ventricular rate of 54 bpm. PAC noted. Discharge Plan Triage Chief Complaint: Chest Pain ED Provider: Sven Alvarez Dx/Rx/DC Orders Prescriptions: No Action coenzyme Q10 100 mg capsule 100 mg PO DAILY multivitamin 1 EACH tablet 1 tab PO DAILY cholecalciferol (vitamin D3) 2,000 UNIT capsule 2,000 unit PO DAILY rosuvastatin 10 mg tablet 10 mg PO DAILY alendronate [Fosamax] 70 mg Tablet 70 mg PO TU lisinopril 10 mg tablet 10 mg PO DAILY metoprolol succinate 25 mg tablet extended release 24 hr 25 mg PO DAILY Primary Care Provider: Michael Tanner Referrals: Michael Tanner MD [Primary Care Provider] - Print Language: Bulgarian
[2024-08-03 09:12] LABS: Absolute Lymphocyte Count 1.23 X10^3/uL (0.83-4.51); Absolute Neutrophil Count 5.1 X10^3/uL (2.0-7.7); Basophil# 0.04 X10^3/uL; Basophil% 0.6 % (0-1); Eosinophils% 1.4 % (0-5); Hemoglobin 12.6 g/dL (12.0-15.0); Lymphocyte # 1.23 X10^3/ul (0.83-4.51); Lymphocyte % 17.3 % (19-41); Mean Corp Hgb Conc 34.1 g/dL (32-36); Mean Corpuscular Volume 91.1 fL (81-99); Mean Platelet Vol. 11.8 fl (6.2-12.0); Monocyte# 0.64 X10^3/uL; NRBC Flagged by Analyzer 0 % (0-5); Neutrophil # 5.09 X10^3/uL (2.7-7.7); Neutrophil % 71.6 % (47-70); Platelet Count 177 K/mm3 (150-450); RBC Distribution Width CV 13.5 % (11.6-14.6); RBC Distribution Width SD 45.9 fl (35.1-43.9); Red Blood Count 4.06 M/mm3 (4.2-5.4); White Blood Count 7.1 K/mm3 (4.4-11.0)
[2024-08-03 09:39] LABS: D-Dimer Quantitative (DVT/PE) 0.46 FEU/ug/m (0.27-0.49)
[2024-08-03 10:34] VITALS: BP 123/60; PULSE 47; RESP 13; O2SAT 98
[2024-08-03 10:44] LABS: Anion Gap 11 (5-15); BUN 13 mg/dL (4-19); BUN/Creat Ratio 19.7 RATIO (10-20); Calcium,Total 10.5 mg/dL (7.6-11.0); Carbon Dioxide 22.7 mmol/L (21.0-32.0); Chloride 101 mmol/L (98-108); Creatinine, Serum 0.68 mg/dL (0.70-1.20); EST Glomerular Filtration Rate 94 (>60); Estimated Creatinine Clearance 58.23 ml/min (50-250); Glucose 72 mg/dL (70-99); Potassium 4.5 mmol/L (3.3-5.1); Sodium Level 135 mmol/L (133-145); Troponin T High Sensitivity 7 ng/L (<=14)
[2024-08-03 11:05] VITALS: BP 111/60; PULSE 47; RESP 19; TEMP 36.7; O2SAT 98
== END 2024-08-03 11:08 | disposition home or self-care (01) ==
PROVIDERS: Emergency Provider Emergency Medicine; PCP Family Medicine; Visit Provider Emergency Medicine
DX: R07.9 Chest pain, unspecified (principal); I11.0 Hypertensive heart disease with heart failure; I50.42 Chronic combined systolic (congestive) and diastolic (congestive) heart failure; Z87.891 Personal history of nicotine dependence; E78.5 Hyperlipidemia, unspecified; Z79.899 Other long term (current) drug therapy
CPT/HCPCS: 71045; 80048; 84484; 85025; 85379; 93005; 99284; A4216

== ENCOUNTER → 2025-03-15 | Outpatient (CLI) | payer MEDICARE, OTHER, SELFPAY ==
--- NOTE | 2025-03-15 11:00 | BI_ITS ---
EXAM: SCRN MAMM (CAD)W/ADIS BILAT DATE: 03/15/2025 CLINICAL HISTORY: F, Age 69 y/o , ANNUAL SCREENING TECHNIQUE: Procedure Code: [id number] Modality: MG Procedure: SCRN MAMM (CAD)W/ADIS BILAT COMPARISON: Prior exam(s) dated 03/13/2024, 03/11/2023. FINDINGS: TISSUE DENSITY: The breasts are heterogeneously dense, which may obscure small masses. Bilateral Breast Mammographic Findings: Benign-appearing round microcalcifications are seen in both breasts. No suspicious masses, suspicious cluster of microcalcifications, architectural distortion or secondary signs of malignancy is identified in either breast. BI/SCRN MAMM (CAD)W/ADIS BILAT IMPRESSION: Benign screening mammogram OVERALL FINAL ASSESSMENT BI-RADS 2: BENIGN RECOMMENDATION: Routine annual follow-up in 1 Year Additional Recommendation none A letter with findings and recommendations will be mailed to the patient. Reading Location: [id number]
== END | disposition home or self-care (01) ==
LOC: OPBI 10:33
PROVIDERS: PCP Family Medicine; Referring Provider Internal Medicine Hematology & Oncology; Visit Provider Internal Medicine Hematology & Oncology
DX: Z12.31 Encounter for screening mammogram for malignant neoplasm of breast (principal)
CPT/HCPCS: 77063; 77067